=== PATIENT | female | born 1990 | race Caucasian/White ===

== ENCOUNTER → 2017-09-16 11:16 | Outpatient (CLI) | payer MEDICARE, MEDICAID, SELFPAY ==
--- NOTE | 2017-09-16 11:50 | RAD_ITS ---
STUDY: X-RAY - CERVICAL SPINE REASON FOR EXAM: Female, 27 years old. Pain TECHNIQUE: 5 view(s) of the cervical spine were obtained. COMPARISON: None FINDINGS: Normal anterior atlantoaxial articulation. Normal odontoid process. There is straightening of the normal cervical lordosis. Normal vertebral bodies and endplates. Normal disc space heights. Normal visualized intervertebral neuroforamina. The soft tissue structures are unremarkable. RAD/Cerv Spine 4 or 5 Views IMPRESSION: There is mild straightening of the normal cervical lordosis. This can suggest neck strain. Electronically Signed: Talat Hardy MD at 16:45 EDT , Service support ,
[2017-09-16 13:05] LABS: Amphetamine Urine VISTA NEGATIVE (<1000 ng/mL); Barbiturate Urine VISTA NEGATIVE (< 200 ng/mL); Benzodiazepine Urine VISTA NEGATIVE (< 200 ng/mL); Cocaine Urine VISTA NEGATIVE (< 300 ng/mL); Ecstacy Urine VISTA NEGATIVE (< 500 ng/mL); Methadone Urine VISTA NEGATIVE (< 300 ng/mL); PCP Urine VISTA NEGATIVE (< 25 ng/mL); THC Urine VISTA POSITIVE (< 50 ng/mL); Vista UDS pH Range 6
== END ==
PROVIDERS: Family Provider Family Medicine; PCP Family Medicine; Visit Provider Anesthesiology
DX: M54.2 Cervicalgia (principal); F11.20 Opioid dependence, uncomplicated
CPT/HCPCS: 72050; 80307

== ENCOUNTER → 2018-08-15 14:21 | Outpatient (CLI) | payer MEDICARE, MEDICAID, SELFPAY ==
[2018-08-21 11:36] LABS: HPV Reflexed? NOT INDICATED
== END ==
PROVIDERS: Visit Provider Obstetrics & Gynecology
DX: Z12.4 Encounter for screening for malignant neoplasm of cervix (principal)
CPT/HCPCS: 88175; G0145

== ENCOUNTER → 2019-05-20 14:52 | Outpatient (CLI) | payer MEDICARE, MEDICAID, SELFPAY ==
[2016-05-30 09:09] VITALS: BMI 39.0
[2019-05-20 16:44] LABS: Progesterone Level 0.29 ng/mL (See Comment)
[2019-05-20 16:46] LABS: hCG Titer Quant., Serum < 1 mIU/mL (1-3)
== END ==
PROVIDERS: Visit Provider Obstetrics & Gynecology
DX: Z30.013 Encounter for initial prescription of injectable contraceptive (principal)
CPT/HCPCS: 36415; 84144; 84702

== ENCOUNTER 2019-07-16 03:38 | Emergency (ER) | payer MEDICARE, MEDICAID, SELFPAY ==
[2019-07-16 03:38] VITALS: BP 113/77; PULSE 104; RESP 20; TEMP 36.8; O2SAT 98; BMI 33.5
--- NOTE | 2019-07-16 03:50 | ED.VIS.GEN ---
History of Present Illness Chief Complaint: Back Narrative: Patient is a 28-year-old female who presents with chief complaint of sciatic nerve pain. She has a history of prior similar pain in the past although she reports this is more severe. She complains of lower back pain with radiation down her right leg to her toes. She also complains of numbness in the leg. No weakness. She denies any history of back surgeries. No recent trauma or injury. No fever. No abdominal pain. No urinary retention or fecal incontinence. Past Medical History - Allergies and Home Meds Allergies/Adverse Reactions: Allergies codeine Adverse Reaction (Verified 05/30/16 09:09) Upset Stomach hydrocodone bitartrate [From Vicodin] Adverse Reaction (Verified 05/30/16 09:09) Upset Stomach Primary Care Physician: Anthony Humphreys DO [Primary Care Provider] - Past Medical History: - - Depression Smoking Status: Current every day smoker Review of Systems All systems negative except as indicated General: Denies: Fever Cardiovascular: Denies: Chest pain Respiratory: Denies: Dyspnea Gastrointestinal: Denies: Abdominal pain, Nausea, Vomiting Musculoskeletal: Reports: Back pain, Extremity Pain Skin: Denies: Rash Physical Exam Vital Signs/Narrative: Vital Signs Temp Pulse Resp BP Pulse Ox 07/16/19 03:38 98.2 F 104 H 20 H 113/77 98 Inital Vital Signs reviewed: Yes General: Well nourished, Well developed Head: Normocephalic Eyes: EOMI ENT: Moist mucous membranes Neck: Supple Cardiovascular: Regular rate Respiratory: No distress Abdomen: Soft, Nontender, Nondistended Back: - - Right paraspinal lumbar tenderness, no midline tenderness Extremities: No edema, - - Easily palpable dorsalis pedis pulse with brisk capillary refill patient reports decreased sensation to light touch, motor function is normal with normal dorsiflexion, plantarflexion, extensor hallucis longus. Negative for: Tenderness, Edema Skin: Normal color Neurological: Alert, Normal Strength Psychological: Normal affect Diagnostic/Tx/Re-eval - Medical Decision Making Patient is able to ambulate and drove herself in. She does not have evidence of acute surgical pathology such as cauda equina syndrome or epidural abscess. We will treat with a prednisone burst. She was also given a prescription for a short course of [place]. Although she lists hydrocodone as an allergy this was only nausea. We discussed also providing an antiemetic with this. She is agreeable to this plan. She understands to follow-up as an outpatient and to return for new or worsening symptoms and was instructed on specific signs and symptoms to monitor for and she was discharged. ED Disposition - Plan for ED Patient: Disposition: Home or Assisted Living Diagnosis: Lumbar radiculopathy Instructions: BACK PAIN w/ SCIATICA Prescriptions: Oxycodone HCl/Acetaminophen [Percocet 5/325] 1 tab PO Q6H PRN PRN 3 Days #4 tab PRN Reason: Pain Prescription Printed predniSONE tablet 60 mg PO DAILY #15 tab Prescription Printed Referrals: Anthony Humphreys DO [Primary Care Provider] -
[2019-07-16 04:03] VITALS: BP 135/102; PULSE 92; RESP 18; O2SAT 94
== END 2019-07-16 04:11 | disposition home or self-care (01) ==
PROVIDERS: Emergency Provider Emergency Medicine; PCP Family Medicine
DX: M54.16 Radiculopathy, lumbar region (principal); F32.9 Major depressive disorder, single episode, unspecified; F17.200 Nicotine dependence, unspecified, uncomplicated
CPT/HCPCS: 99282

== ENCOUNTER 2019-11-07 21:05 | Emergency (ER) | payer MEDICARE, MEDICAID, SELFPAY ==
[2019-11-07 21:05] VITALS: BP 136/85; PULSE 90; RESP 16; TEMP 36.6; O2SAT 99; BMI 34.2
--- NOTE | 2019-11-07 21:26 | RAD_ITS ---
STUDY: X-RAY - RIGHT WRIST REASON FOR EXAM: Female, 29 years old. FALL TECHNIQUE: 3 view(s) of the wrist were obtained. COMPARISON: None. FINDINGS: Normal visualized distal radius and ulna. Normal radiocarpal articulation. Normal distal radioulnar articulation. Normal carpal bones. Normal carpal articulations. Normal carpometacarpal articulation of the thumb. Normal second through fifth carpometacarpal articulations. Normal visualized metacarpal bones. The soft tissue structures are unremarkable. RAD/Wrist min 3 Views IMPRESSION: Normal x-ray examination of the wrist. Electronically Signed: Reddy Lowe MD at 21:55 EDT , Service support ,
[2019-11-07] MEDS: traMADol 50 MG Tablet PO (21:30)
--- NOTE | 2019-11-07 21:30 | RAD_ITS ---
STUDY: X-RAY - RIGHT HAND REASON FOR EXAM: Female, 29 years old. FALL TECHNIQUE: 3 view(s) of the hand. COMPARISON: None. FINDINGS: Normal radiocarpal articulation. Normal distal radioulnar joint. Normal visualized carpal bones. Normal carpal articulations Normal carpometacarpal articulation of the thumb. Normal second through fifth carpometacarpal joints. Normal metacarpi. Normal metacarpophalangeal joint of the thumb. Normal interphalangeal joint of the thumb. Normal proximal and distal phalanges of the thumb. Normal metacarpophalangeal joints of the second through fifth fingers. Normal proximal and distal interphalangeal joints of the second through fifth fingers. Normal phalanges of the second through fifth fingers. The soft tissue structures are unremarkable. RAD/Hand Min 3 Views IMPRESSION: Normal x-ray examination of the hand. Electronically Signed: Reddy Lowe MD at 21:57 EDT , Service support ,
--- NOTE | 2019-11-07 22:23 | ED.VIS.UPPEX ---
History of Present Illness Chief Complaint: Upper Extremity Injury Narrative: Patient presenting for evaluation secondary to right hand injury. Patient reports that she suffered a mechanical fall on a flat surface where her hand slapped forcibly against the ground. She denies that it was a fall on an outstretched hand where she tried to catch herself. Patient reports a significant amount of pain over her palmar surface at the base of her thumb, and some tingling of her thumb. No numbness or weakness. She does report that she hit her head, but no loss of consciousness, confusion, visual changes numbness or weakness. Review of systems otherwise negative. Pain is moderate worse with palpation and movement. Past Medical History - Allergies and Home Meds Allergies/Adverse Reactions: Allergies codeine Adverse Reaction (Verified 11/07/19 21:06) Upset Stomach hydrocodone bitartrate [From Vicodin] Adverse Reaction (Verified 11/07/19 21:06) Upset Stomach Primary Care Physician: Anthony Humphreys DO [Primary Care Provider] - As Needed Prior records reviewed: Yes Past Medical History: None Smoking Status: Current every day smoker Review of Systems All systems negative except as indicated General: Denies: Chills, Fever, Sweats Cardiovascular: Denies: Chest pain Respiratory: Denies: Dyspnea Gastrointestinal: Denies: Nausea, Vomiting Musculoskeletal: Reports: Myalgias Skin: Denies: Rash Neurological: Denies: Headache Hematologic: Denies: Easy bruising, Easy bleeding Physical Exam Vital Signs/Narrative: Vital Signs Temp Pulse Resp BP Pulse Ox 11/07/19 21:05 97.8 F 90 16 136/85 H 99 Right Hand: - - Examination of the patient's right hand shows some swelling over the thenar eminence with tenderness to palpation in that area. Patient reports some dysesthesia of the thumb, but she does have intact sensation and normal capillary refill. Pain with range of motion of the thumb, but active flexion, extension, abduction and adduction of the thumb is possible. No evidence of laxity of the ulnar collateral ligament. No pain over the anatomical snuffbox General: Well nourished, Well developed Head: Normocephalic, Atraumatic Eyes: EOMI ENT: Moist Mucous Membranes Neck: Full ROM. Negative for: Spinal Tenderness Cardiovascular: Regular rate, Regular rhythm Respiratory: No distress Back: Nontender Skin: Normal color, No rash Neurological: Alert, Oriented x3 Psychological: Normal affect Diagnostic/Tx/Re-eval Clinical Impression(s) from Imaging Studies Wrist X-Ray 11/07/19 21:26 IMPRESSION: Normal x-ray examination of the wrist. Electronically Signed: Reddy Lowe MD at 21:55 EDT , Service support , Hand X-Ray 11/07/19 21:30 IMPRESSION: Normal x-ray examination of the hand. Electronically Signed: Reddy Lowe MD at 21:57 EDT , Service support , - Medical Decision Making Patient presented secondary to a fall with right hand and wrist injury. 3 view of the right hand and the right wrist by my personal review as well as radiology is negative for acute fracture. Patient was given a tramadol in the emergency department. She was given an Robert wrap, and was recommended conservative management measures for a likely hand contusion. She does not have symptomatology that would be consistent with an occult scaphoid fracture. ED Disposition - Plan for ED Patient: Disposition: Home or Assisted Living Diagnosis: Contusion of right hand Instructions: ED HAND CONTUSION Referrals: Anthony Humphreys DO [Primary Care Provider] - As Needed
== END 2019-11-07 22:43 | disposition home or self-care (01) ==
PROVIDERS: Emergency Provider Emergency Medicine; PCP Family Medicine
DX: S60.221A Contusion of right hand, initial encounter (principal); W18.39XA Other fall on same level, initial encounter; Y93.9 Activity, unspecified; Y92.9 Unspecified place or not applicable; F17.200 Nicotine dependence, unspecified, uncomplicated
CPT/HCPCS: 73110; 73130; 99283

== ENCOUNTER → 2019-12-10 08:48 | Outpatient (CLI) | payer MEDICARE, MEDICAID, SELFPAY ==
[2019-12-10 11:28] LABS: Internal QC Validated? YES +Cl - CLEAR BKGD; Pregnancy, Serum, hCG Quali. NEGATIVE Negative
== END ==
PROVIDERS: PCP Family Medicine; Visit Provider Obstetrics & Gynecology
DX: Z30.013 Encounter for initial prescription of injectable contraceptive (principal)
CPT/HCPCS: 36415; 84144; 84703

== ENCOUNTER 2020-05-22 22:06 | Emergency (ER) | payer MEDICARE, MEDICAID, SELFPAY ==
[2020-05-22 22:11] VITALS: BP 136/89; PULSE 93; RESP 14; TEMP 36.3; O2SAT 99; BMI 32.0
--- NOTE | 2020-05-22 22:38 | ED.VISSUMM ---
- ER Visit Summary Date of Service: 05/22/20 Chief Complaint: Requesting test History of Present Illness: The patient is a 29 F presenting requesting a test. States she has been having morning sickness for the past several weeks. She had nausea vomiting x6 today. She denies diarrhea. She has IBS and has chronic abdominal pain. This is no worse than usual. She denies fever. She is G1, P1. She denies other complaints. She states she is on the Depo shot and does not have regular menstrual periods. Physical Examination: Vitals are stable. Patient is afebrile. Alert no acute distress. HEENT exam is unremarkable. Neck is supple. Lungs are clear and equal bilaterally. Heart is regular rate and rhythm. Abdomen is soft nontender nondistended. No guarding or rebound Extremities are unremarkable. Skin is warm and dry. No focal neurologic deficit. Remainder of exam is unremarkable. Emergency Department Course and Treatment: Serum hCG negative. Patient was given Zofran for nausea. She is advised to follow-up with her primary care physician. Advised return to ED for worsening complaints. Disposition: Discharge home Impression: Nausea, vomiting This note was generated with [employer] dictation software. It may contain incorrect words, spelling, and punctuation that were not noted in review of the chart prior to signing ED Disposition - Plan for ED Patient: Instructions: ED Vomiting (Adult) Prescriptions: Ondansetron [Zofran Odt] 4 mg PO Q8H PRN PRN #10 tab PRN Reason: Nausea Prescription Printed Referrals: Anthony Humphreys DO [Primary Care Provider] -
[2020-05-22 22:51] LABS: Internal QC Validated? YES +Cl - CLEAR BKGD; Pregnancy, Serum, hCG Quali. NEGATIVE Negative
--- NOTE | 2020-05-22 23:02 | ED.DEP ---
ED Disposition - Plan for ED Patient: Instructions: ED Vomiting (Adult) Prescriptions: Ondansetron [Zofran Odt] 4 mg PO Q8H PRN PRN #10 tab PRN Reason: Nausea Prescription Printed Referrals: Anthony Humphreys DO [Primary Care Provider] -
== END 2020-05-22 23:17 | disposition home or self-care (01) ==
LOC: ED 22:47
PROVIDERS: Emergency Provider Emergency Medicine; PCP Family Medicine
DX: Z32.02 Encounter for pregnancy test, result negative (principal); R11.2 Nausea with vomiting, unspecified; K58.9 Irritable bowel syndrome, unspecified; G89.29 Other chronic pain; F31.9 Bipolar disorder, unspecified; Z72.0 Tobacco use
CPT/HCPCS: 84703; 99282

== ENCOUNTER → 2020-05-25 11:36 | Outpatient (CLI) | payer MEDICARE, MEDICAID, SELFPAY ==
[2020-05-22 22:11] VITALS: BMI 32.0
--- NOTE | 2020-05-25 11:38 | US_ITS ---
STUDY: ABDOMINAL ULTRASOUND - RIGHT UPPER QUADRANT REASON FOR VISIT: Female, 29 years old NAUSEA VOMITTING -- POSSIBLE IBS TECHNIQUE: Ultrasound evaluation of the right upper quadrant was performed with real-time and static shelby-scale imaging. TECHNICAL QUALITY: Adequate. COMPARISON: None. FINDINGS: Liver: The liver measures 15.4 cm. There is normal echogenicity of the liver. The bile ducts are within normal limits. There is hepatic color flow. The direction of portal flow is hepatopetal. There is no demonstrated mass lesion. Gallbladder: Normal distended gallbladder. The gallbladder wall measures 2.1 mm. There is a negative sonographic Casillas''s sign. There is no pericholecystic fluid. There are no gallstones. Common Bile Duct (C.B.D.): The common bile duct measures 4.8 mm. Pancreas: Normal size of the head, body and tail of the pancreas. There is increased echogenicity of the pancreas. There is no demonstrated pancreatic mass or cyst. Right Kidney: Normal size of the right kidney. The right kidney measures 11 cm x 6.2 cm x 4.5 cm. Normal renal cortex. The right cortex measures 1.6 cm. There is no demonstrated renal mass or cyst. There is no right hydronephrosis. US/Abdomen Limited IMPRESSION: Normal right upper quadrant ultrasound examination. Electronically Signed: Ten Vitale, at 15:19 EST , Service support ,
--- NOTE | 2020-05-25 12:06 | RAD_ITS ---
STUDY: X-RAY - LUMBAR SPINE REASON FOR EXAM: Female, 29 years old. LOWER BACK PAIN. FELL 2 WEEKS AGO. TECHNIQUE: 5 view(s) of the lumbar spine were obtained including oblique views. COMPARISON: None FINDINGS: There is straightening of the normal lumbar lordosis. There is no substantial scoliosis. There is a normal alignment of the vertebrae. There is multilevel endplate spondylosis of the lumbar vertebrae. There is multi-level degenerative disc disease with multi-level disc space narrowing. The soft tissue structures are unremarkable. RAD/L/S Spine Min 4 Views IMPRESSION: Degenerative changes of the spine, as detailed above. Electronically Signed: Ten Vitale, at 15:55 EST , Service support ,
== END ==
PROVIDERS: PCP Family Medicine
DX: R10.11 Right upper quadrant pain (principal); R11.2 Nausea with vomiting, unspecified
CPT/HCPCS: 72110; 76705

== ENCOUNTER → 2020-12-28 10:50 | Outpatient (CLI) | payer MEDICARE, MEDICAID, SELFPAY ==
[2020-12-28 12:40] LABS: HIV - WCH Non-Reactive (Nonreactive); Hepatitis B Surface Antigen Non-Reactive (Nonreactive); Hepatitis C Antibody Non-Reactive (Nonreactive); Syphilis Antibodies Non-reactive
[2020-12-31 08:08] LABS: Chlamydia By Nucleic Acid AMP Negative (Negative)
[2020-12-31 12:33] LABS: Gonococcus By Nucleic Acid AMP Negative (Negative)
== END ==
PROVIDERS: PCP Family Medicine; Visit Provider Obstetrics & Gynecology
DX: Z11.3 Encounter for screening for infections with a predominantly sexual mode of transmission (principal)
CPT/HCPCS: 36415; 86703; 86780; 86803; 87340; 87491; 87591

== ENCOUNTER → 2023-04-14 | Outpatient (CLI) | payer MEDICARE, MEDICAID, SELFPAY ==
--- NOTE | 2023-04-14 08:30 | RAD_ITS ---
STUDY: X-RAY - ESOPHAGUS (BARIUM SWALLOW) WITH FLUOROSCOPY REASON FOR EXAM: Female, 32 years old. DYSPHAGIA TECHNIQUE: 16 view(s) of the esophagus were obtained following swallowing of barium. FLUOROSCOPY TIME (if supplied): (30 seconds) minutes/seconds COMPARISON: None. FINDINGS: There is no demonstrated esophageal foreign body. There is no demonstrated stricture or mucosal abnormality. Normal gastroesophageal junction, without a demonstrated hiatal hernia. The patient ingested a 12 mm tablet of barium without any difficulty. Normal visualized aortic arch and descending thoracic aorta. Normal visualized pulmonary parenchyma. Normal visualized osseous structures of the thorax. RAD/Esophagus Single Contrast IMPRESSION: Normal plain film x-ray examination (barium swallow) of the esophagus. Electronically Signed: Ten Vitale MD at 14:39 EST ,
== END | disposition home or self-care (01) ==
PROVIDERS: Referring Provider Otolaryngology; Visit Provider Otolaryngology
DX: R13.13 Dysphagia, pharyngeal phase (principal); K21.9 Gastro-esophageal reflux disease without esophagitis
CPT/HCPCS: 74220

== ENCOUNTER → 2023-07-27 | Outpatient (CLI) | payer MEDICARE, MEDICAID, SELFPAY ==
--- NOTE | 2023-07-27 15:10 | RAD_ITS ---
STUDY: X-RAY - LUMBAR SPINE REASON FOR EXAM: Female, 32 years old. SCIATICA TECHNIQUE: 5 view(s) of the lumbar spine were obtained. COMPARISON: None FINDINGS: Normal lumbar lordosis. There is a levoscoliosis of the lumbar spine. There is multilevel endplate spondylosis of the lumbar vertebrae. There is multi-level degenerative disc disease with multi-level disc space narrowing. There is facet spurring and sclerosis. There is no demonstrated fracture. The soft tissue structures are unremarkable. RAD/L/S Spine Min 4 Views IMPRESSION: Scoliosis and degenerative change. Electronically Signed: Pako Ny MD at 13:38 EST ,
== END | disposition home or self-care (01) ==
LOC: MTRAD 15:08
PROVIDERS: PCP Family Medicine; Referring Provider Family Medicine; Visit Provider Family Medicine
DX: M54.30 Sciatica, unspecified side (principal)
CPT/HCPCS: 72110

== ENCOUNTER → 2024-04-15 | Outpatient (CLI) | payer MEDICARE, MEDICAID, SELFPAY ==
[2024-04-15 12:20] LABS: Absolute Lymphocyte Count 1.93 X10^3/uL (0.83-4.51); Absolute Neutrophil Count 7.4 X10^3/uL (2.0-7.7); Basophil# 0.03 X10^3/uL; Basophil% 0.3 % (0-1); Eosinophil# 0.01 X10^3/uL; Eosinophils% 0.1 % (0-5); Hematocrit 47.8 % (37-47); Hemoglobin 15.6 g/dL (12.0-15.0); Lymphocyte # 1.93 X10^3/ul (0.83-4.51); Lymphocyte % 19.8 % (19-41); Mean Corp Hgb Conc 32.6 g/dL (32-36); Mean Corpuscular Hgb 32.2 pg (27.0-32.0); Mean Corpuscular Volume 98.6 fL (81-99); Mean Platelet Vol. 9.9 fl (6.2-12.0); Monocyte# 0.35 X10^3/uL; Monocyte% 3.6 % (0-10); NRBC Flagged by Analyzer 0 % (0-5); Neutrophil # 7.37 X10^3/uL (2.7-7.7); Neutrophil % 75.8 % (47-70); Platelet Count 271 K/mm3 (150-450); RBC Distribution Width CV 13.2 % (11.6-14.6); RBC Distribution Width SD 47.6 fl (35.1-43.9); Red Blood Count 4.85 M/mm3 (4.2-5.4); White Blood Count 9.7 K/mm3 (4.4-11.0)
[2024-04-15 12:45] LABS: Vitamin D,25 Hydroxy 49.6 ng/mL
[2024-04-15 13:14] LABS: AST(SGOT) 11 U/L (15-37); Alanine Aminotransfer ALT/SGPT 24 U/L (13-56); Alkaline Phosphatase 59 U/L (45-117); Anion Gap 11 (5-15); BUN 7 mg/dL (7-18); BUN/Creat Ratio 8.8 RATIO (10-20); Calcium,Total 9.4 mg/dL (8.5-10.1); Chloride 112 mmol/L (98-107); Creatinine, Serum 0.79 mg/dL (0.55-1.02); EST Glomerular Filtration Rate 89 mL/min (>60); Est Glom Filt Rate - Afr Amer 107 mL/min (>60); Follicle Stimulating Hormone 4.5 mIU/mL; Globulin 3.9 g/dL (2.2-4.2); Glucose 118 mg/dL (74-106); Luteinizing Hormone 2.4 mIU/mL; Potassium 3.6 mmol/L (3.5-5.1); Protein, Total 7.9 g/dL (6.4-8.2); Sodium Level 141 mmol/L (136-145); Thyroid Stim Hormone (TSH) 0.701 uIU/mL (0.358-3.740)
== END | disposition home or self-care (01) ==
LOC: MFPLAB 09:32
PROVIDERS: PCP Family Medicine; Visit Provider Family Medicine
DX: R53.83 Other fatigue (principal); I11.0 Hypertensive heart disease with heart failure
CPT/HCPCS: 36415; 80053; 82306; 83001; 83002; 84443; 85025

== ENCOUNTER → 2024-08-19 | Outpatient (CLI) | payer MEDICARE, MEDICAID, SELFPAY ==
--- NOTE | 2024-08-19 16:51 | RAD_ITS ---
PROCEDURE: LUMBAR SPINE 2 OR 3 VIEWS 08/19/2024 REASON FOR EXAM: BACK PAIN WITH LUMP TECHNIQUE: 3 view of the lumbar spine COMPARISON: None FINDINGS: Mild levoscoliosis centered at L4. No acute findings. There is degenerative disc disease most notable at L3-L4 and L4-L5. If concern for nerve root impingement, consider MRI. RAD/Lumbar Spine 2 or 3 Views IMPRESSION: Degenerative disc disease of the lower lumbar spine with mild scoliosis. If pe rsistent concern, consider MRI Reading Location: [id number]
== END | disposition home or self-care (01) ==
PROVIDERS: PCP Family Medicine; Referring Provider Family Medicine; Visit Provider Family Medicine
DX: M54.50 Low back pain, unspecified (principal)
CPT/HCPCS: 72100

== ENCOUNTER → 2024-10-03 | Outpatient (CLI) | payer MEDICARE, MEDICAID, SELFPAY | END | disposition home or self-care (01) | LOC: LABSPEC 16:17 | PROVIDERS: PCP Family Medicine; Referring Provider Otolaryngology; Visit Provider Otolaryngology | DX: J02.9 Acute pharyngitis, unspecified (principal) | CPT/HCPCS: 87070 ==

== ENCOUNTER 2024-10-23 12:55 | Emergency (ER) | payer MEDICARE, MEDICAID, SELFPAY ==
[2024-10-23 12:56] VITALS: BP 136/88; PULSE 100; RESP 16; TEMP 36.6; O2SAT 96; BMI 38.5
[2024-10-23 12:58] VITALS: BP 136/88; PULSE 100; RESP 16; TEMP 36.6; O2SAT 96
--- NOTE | 2024-10-23 14:04 | EDS_ITS ---
HPI HPI - Female History of Present Illness Chief Complaint: Female C/O Informant: patient Narrative Narrative: 3 weeks sore throat with mucus. Saw Dr. Villarreal with symptom started throat culture returned haemophilus influenza I was on Augmentin for 10 days still has symptoms. No fevers. Pain with swallowing. In addition burning vaginal region 2 days no discharge no dysuria. Sexually active single partner uses protection. Denies history of STDs. 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 Prior similar symptoms: Yes PFSH PFSH Medical History Bipolar disorder Low back pain Depression Anxiety Home Medications ?Medication ?Instructions ?Recorded ?Last Taken ?Type aripiprazole 30 mg tablet (Abilify) 15 mg PO QHS 05/30 Unknown History sertraline 100 mg tablet 200 mg PO QHS 05/30/16 Unkno wn History gabapentin 600 mg tablet 600 mg PO BID 07/16/19 Unkno wn History prednisone 20 mg tablet 60 mg (3 x 20 mg) PO DAILY # 15 tabs 07/16/19 Unknown Rx trazodone 150 mg tablet 150 mg PO QHS 07/16/19 Unkno wn History lamotrigine 150 mg tablet 150 mg PO BID 05/22/20 Unkno wn History medroxyprogesterone 150 mg/mL 150 mg IM .[id number] 05/05 01/22 Unknown History intramuscular syringe multivitamin with minerals 1 ea PO DAILY 05/22/20 Unkn own History ondansetron 4 mg disintegrating 4 mg PO Q8H PRN PRN Na usea #10 tabs 05/22/20 Unknown Rx tablet quetiapine 25 mg tablet 25 mg PO QHS 05/22/20 Unknow n History prednisone 20 mg tablet 60 mg (3 x 20 mg) PO DAILY # 12 10/23/24 Unknown Rx TABLETS Allergy/AdvReac Type Severity Reaction Status Date / Time codeine AdvReac Upset Verified 05/22/20 22:13 Stomach hydrocodone bitartrate (From AdvReac Upset Verified 05/22/20 22:13 Vicodin) Stomach Social History housing: apartment current occupational status: disabled Smoking Status: Current every day smoker tobacco type: e-cigarettes ROS ROS ED Constitutional Constitutional ED: Denies fever(s) ENT ENT ED: Reports sore throat Cardiovascular Cardiovascular: Denies chest pain Respiratory/Chest Respiratory/Chest: Denies cough Gastrointestinal Gastrointestinal: Denies diarrhea or vomiting Genitourinary Genitourinary ED: Reports other Details: Vaginal burning ; Denies dysuria, hematuria or urinary frequency Musculoskeletal Musculoskeletal: Denies none Integumentary Denies rash or wounds Neurologic Neurologic: Denies weakness EXAM Physical Exam Const Vital Signs: 10/23/24 12:56 10/23/24 12:58 10/23/24 13:54 Temperature 97.9 F 97.9 F Temperature Source Oral Temporal Pulse Rate 100 100 Respiratory Rate 16 16 Respiratory Effort Normal Non-Labored Respiratory Depth Normal Respiratory Pattern Normal Blood Pressure 136/88 H 136/88 H Blood Pressure Mean 104 104 Pulse Ox 96 96 Oxygen Delivery Method Room Air Room Air Room Air 10/23/24 14:55 Temperature Temperature Source Pulse Rate 89 Respiratory Rate 17 Respiratory Effort Respiratory Depth Respiratory Pattern Blood Pressure Blood Pressure Mean Pulse Ox 99 Oxygen Delivery Method Positive well nourished and well developed General Appearance ED: well developed and NAD HEENT Reports moist mucous membranes HEENT Narrative: Minimal posterior pharyngeal erythema 1+ symmetric tonsils bilaterally. Uvula midline. No trismus. No ulcers noted. 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 There are some skin redness or groin area nontender. Speculum examination mild discharge in the vault, cervix bluish coloration. No ulcerations noted. No bleeding noted. Extremity normal to inspection General Extremety ED: Negative for edema or tenderness General Extremity: Negative for edema Neuro oriented x3 and no sensory deficits noted Sensorium / Orientation: awake and alert Skin no rashes or lesions noted and no wounds MDM MDM MDM Narrative Medical decision making narrative: Interventions / MDM: Differential diagnosis: Pharyngitis, vaginitis Diagnosis considered but do not suspect: UTI however urine negative. My EKG interpretation: N/A Imaging independently reviewed and interpreted by myself: N/A External documents reviewed: Records from throat culture from October 03 was positive for haemophilus influenza. Test considered but not ordered:N/A ED course: Continue symptoms erythema sore throat positive haemophilus influenza. Will send for strep and throat culture again. Will do pelvic exam as patient is requesting for testing. Urine sent. Urine make for infection hCG negative. Wet prep negative. Strep negative. She was treated with prednisone. Discussed with patient throat culture pending GC chlamydia pending. At this time we will continue steroids for pharyngitis symptoms. Discussed that positive culture should be contact for treatment. 2207: After discharge review of her testing chlamydia and gonorrhea were negative. Pending throat cultures. Re-evaluation: stable Disposition discussed with patient/family/significant other: Patient Case discussed with consulting clinician: N/A This note was generated with [employer] dictation software. It may contain incorrect words, spelling, and punctuation that were not noted in checking the note before signing. Lab Data Attestation: I reviewed the patient's lab results. Labs: Laboratory Results - last 24 hr 10/23/24 14:15 Urine Color Yellow Urine Clarity Cloudy Urine pH 5.0 Ur Specific [place] 1.020 Urine Protein 30 H Urine Glucose (UA) Normal Urine Ketones Negative Urine Occult Blood Negative Urine Nitrite Negative Urine Bilirubin Negative Urine Urobilinogen Normal Ur Leukocyte Esterase Negative Urine RBC 0-5 SEEN Urine WBC 0-5 SEEN Ur Squamous Epith Cells 0-5 SEEN Uric Acid Crystals 1+ Urine Bacteria 0 SEEN Urine Mucus 2+ Urine Test Negative Discharge Plan Triage Chief Complaint: Female C/O Other Complaint: Shortness of Breath ED Provider: Humphrey Andrew Dx/Rx/DC Orders Clinical Impression: Vaginitis, Sore throat Instructions: Preventing Vaginitis, ED Pharyngitis, Report Pending Prescriptions: New prednisone 20 mg tablet 60 mg PO DAILY Qty: 12 0RF No Action sertraline 100 MG tablet 200 mg PO QHS aripiprazole [Abilify] 30 MG tablet 15 mg PO QHS gabapentin 600 MG tablet 600 mg PO BID trazodone 150 MG tablet 150 mg PO QHS prednisone 20 MG tablet 60 mg PO DAILY Qty: 15 0RF quetiapine 25 MG tablet 25 mg PO QHS Rx Instructions: 1-2 tabs lamotrigine 150 MG tablet 150 mg PO BID multivitamin with minerals 1 EACH tablet 1 ea PO DAILY medroxyprogesterone 150 MG/ML syringe 150 mg IM .[id number] ondansetron 4 MG tablet 4 mg PO Q8H PRN PRN (Reason: Nausea) Qty: 10 0RF Primary Care Provider: Nataliya Oliveira Referrals: Nataliya Oliveira MD [Primary Care Provider] - Ar Villarreal MD [Med Staff - Active Staff] - 1 Week Activity Restrictions/Additional Instructions: Strep negative. Throat culture pending. Wet prep negative GC chlamydia pending. Finish steroids as prescribed. Follow-up with Dr. Villarreal. You will be contacted if any cultures are positive. Print Language: Mauritanian Disposition Disposition: Home, Self Care Discharge Date/Time: 10/23/24 15:43
[2024-10-23 14:31] LABS: Bacteria 0 SEEN /hpf (None Seen)
[2024-10-23] MEDS: predniSONE 20 MG Tablet 60 MG PO (14:41)
[2024-10-23 14:45] LABS: Internal QC Validated? YES +Cl - CLEAR BKGD; Pregnancy, Urine Negative Negative; Record Kit Lot#,Urine Preg 947241
[2024-10-23 14:49] LABS: Color, Urine Yellow (Yellow); Glucose, Dipstick Normal (Normal); Ketone-Dipstick Negative (Negative); Leukocyte Esterase-Dipstick Negative /ul (Negative); Nitrite-Dipstick Negative (Negative); Occult Blood-Urine Negative /ul (Negative); Protein-Dipstick 30 mg/dl (Negative); Urine Bilirubin Dipstick Negative (Negative); Urine Clarity Cloudy (Clear); Urine Urobilinogen Normal (Normal)
[2024-10-23 14:55] VITALS: PULSE 89; RESP 17; O2SAT 99
[2024-10-23 15:09] LABS: Red Blood Cells-Urine 0-5 SEEN /hpf (0-5); Squamous Epithelial Cells - UA 0-5 SEEN /hpf (5-10); White Blood Cells 0-5 SEEN /hpf (0-5)
[2024-10-23 15:10] LABS: Mucous, Urine 2+ /hpf (<or=2+); Uric Acid Crystals Ur 1+ /hpf (<or=1+)
== END 2024-10-23 15:43 | disposition home or self-care (01) ==
PROVIDERS: Emergency Provider Emergency Medicine; PCP Family Medicine; Visit Provider Emergency Medicine
DX: J02.9 Acute pharyngitis, unspecified (principal); B96.3 Hemophilus influenzae [H. influenzae] as the cause of diseases classified elsewhere; N76.0 Acute vaginitis; Z11.3 Encounter for screening for infections with a predominantly sexual mode of transmission; F17.290 Nicotine dependence, other tobacco product, uncomplicated
CPT/HCPCS: 81001; 81025; 87070; 87210; 87491; 87591; 87651; 99283

== ENCOUNTER → 2024-10-24 | Outpatient (CLI) | payer MEDICARE, MEDICAID, SELFPAY ==
[2024-10-24 13:16] LABS: Erythrocyte Sedimentation Rate 11 mm/hr (0-30)
[2024-10-24 13:17] LABS: Absolute Lymphocyte Count 3.24 X10^3/uL (0.83-4.51); Absolute Neutrophil Count 8.3 X10^3/uL (2.0-7.7); Basophil# 0.02 X10^3/uL; Basophil% 0.2 % (0-1); Eosinophil# 0.01 X10^3/uL; Eosinophils% 0.1 % (0-5); Hematocrit 43.7 % (37-47); Hemoglobin 14.5 g/dL (12.0-15.0); Lymphocyte # 3.24 X10^3/ul (0.83-4.51); Lymphocyte % 26.4 % (19-41); Mean Corp Hgb Conc 33.2 g/dL (32-36); Mean Corpuscular Volume 99.5 fL (81-99); Mean Platelet Vol. 9.9 fl (6.2-12.0); Monocyte# 0.63 X10^3/uL; Monocyte% 5.1 % (0-10); NRBC Flagged by Analyzer 0 % (0-5); Neutrophil # 8.33 X10^3/uL (2.7-7.7); Platelet Count 239 K/mm3 (150-450); RBC Distribution Width CV 13.2 % (11.6-14.6); RBC Distribution Width SD 48.8 fl (35.1-43.9); Red Blood Count 4.39 M/mm3 (4.2-5.4); White Blood Count 12.3 K/mm3 (4.4-11.0)
[2024-10-24 13:52] LABS: ALB/GLOB Ratio 1.5 RATIO (0.9-2.4); AST(SGOT) 20 U/L (<=31); Alanine Aminotransfer ALT/SGPT 24 U/L (<=34); Albumin, Serum 4.4 g/dL (3.5-5.0); Alkaline Phosphatase 57 U/L (35-104); Anion Gap 14 (5-15); BUN 9 mg/dL (4-19); BUN/Creat Ratio 11.9 RATIO (10-20); CPK Total, Creatine Kinase 187 U/L (24-195); Carbon Dioxide 17.3 mmol/L (21.0-32.0); Chloride 108 mmol/L (98-108); Creatinine, Serum 0.71 mg/dL (0.70-1.20); EST Glomerular Filtration Rate 114 (>60); Globulin 2.9 g/dL (2.2-4.2); Glucose 116 mg/dL (70-99); Protein, Total 7.3 g/dL (5.9-8.4); Sodium Level 140 mmol/L (133-145); Total Bilirubin 0.28 mg/dL (0.00-1.30); Vitamin B12 627 pg/mL (180-914)
[2024-10-24 14:23] LABS: Amylase 52 U/L (28-100); CRP < 3.00 mg/L (0.0-3.0); Lipase 28 U/L (13-75); Phosphorus 2.8 mg/dL (2.7-4.5)
== END | disposition home or self-care (01) ==
LOC: LAB 11:37
PROVIDERS: PCP Family Medicine; Referring Provider Internal Medicine Gastroenterology; Visit Provider Internal Medicine Gastroenterology
DX: R19.7 Diarrhea, unspecified (principal); R10.9 Unspecified abdominal pain
CPT/HCPCS: 36415; 80053; 80074; 81270; 82150; 82384; 82550; 82607; 82668; 82784; 82785; 82941; 83516; 83690; 83735; 84100; 84165; 85025; 85652; 86003; 86036; 86037; 86140; 86225; 86255; 86316; 86334; 86671

== ENCOUNTER → 2024-11-02 | Outpatient (CLI) | payer MEDICARE, MEDICAID, SELFPAY ==
--- NOTE | 2024-11-02 08:30 | MRI_ITS ---
PROCEDURE: SPINE LUMBAR (ROUTINE) 11/02/2024 REASON FOR EXAM: LUMBAR PAIN TECHNIQUE: Multiplanar and multisequence images were obtained without IV contrast administration. FINDINGS: Normal lumbar vertebral body height and alignment. Normal conus. Normal abdominal aorta. No paravertebral masses. L1-2, L2-3 and L5-S1 unremarkable. At L3-4, left paracentral protrusion produces moderate spinal stenosis without direct nerve root impingement. Disc material comes close to the left L4 nerve root sleeve as it exits the thecal sac. At L4-5, mild canal narrowing from concentric disc bulging with facet arthrosis. MRI/Spine Lumbar (Routine) IMPRESSION: Central protrusion at L3-4 with moderate canal stenosis, eccentric to the left. Mild canal narrowing at L4-5 due to broad-based protrusion/bulge without direct nerve root compression Reading Location[facility]
== END | disposition home or self-care (01) ==
LOC: MRI 07:59
PROVIDERS: PCP Family Medicine; Referring Provider Family Medicine; Visit Provider Family Medicine
DX: M54.50 Low back pain, unspecified (principal)
CPT/HCPCS: 72148

== ENCOUNTER → 2024-11-08 | Outpatient (CLI) | payer MEDICARE, MEDICAID, SELFPAY ==
[2024-11-08 15:02] LABS: Absolute Lymphocyte Count 2.07 X10^3/uL (0.83-4.51); Absolute Neutrophil Count 5.5 X10^3/uL (2.0-7.7); Basophil# 0.02 X10^3/uL; Basophil% 0.2 % (0-1); Eosinophil# 0.04 X10^3/uL; Eosinophils% 0.5 % (0-5); Hematocrit 42.9 % (37-47); Hemoglobin 14.2 g/dL (12.0-15.0); Lymphocyte # 2.07 X10^3/ul (0.83-4.51); Lymphocyte % 25.4 % (19-41); Mean Corp Hgb Conc 33.1 g/dL (32-36); Mean Corpuscular Volume 99.8 fL (81-99); Mean Platelet Vol. 9.8 fl (6.2-12.0); Monocyte# 0.48 X10^3/uL; Monocyte% 5.9 % (0-10); NRBC Flagged by Analyzer 0 % (0-5); Neutrophil # 5.51 X10^3/uL (2.7-7.7); Neutrophil % 67.6 % (47-70); Platelet Count 222 K/mm3 (150-450); RBC Distribution Width SD 47.8 fl (35.1-43.9); White Blood Count 8.2 K/mm3 (4.4-11.0)
[2024-11-08 15:54] LABS: ALB/GLOB Ratio 1.5 RATIO (0.9-2.4); AST(SGOT) 18 U/L (<=31); Alanine Aminotransfer ALT/SGPT 14 U/L (<=34); Albumin, Serum 4.1 g/dL (3.5-5.0); Alkaline Phosphatase 56 U/L (35-104); Anion Gap 13 (5-15); BUN 9 mg/dL (4-19); Calcium,Total 9.7 mg/dL (7.6-11.0); Carbon Dioxide 20.2 mmol/L (21.0-32.0); Chloride 105 mmol/L (98-108); Creatinine, Serum 0.77 mg/dL (0.70-1.20); EST Glomerular Filtration Rate 105 (>60); Globulin 2.8 g/dL (2.2-4.2); Glucose 98 mg/dL (70-99); Potassium 3.6 mmol/L (3.3-5.1); Protein, Total 6.9 g/dL (5.9-8.4); Sodium Level 138 mmol/L (133-145); T4 Total, Thyroxin 7.2 ug/dL (4.8-13.9); Thyroid Stim Hormone (TSH) 0.666 uIU/mL (0.300-4.200); Total Bilirubin 0.33 mg/dL (0.00-1.30); Vitamin B12 633 pg/mL (180-914); Vitamin D,25 Hydroxy 43.4 ng/mL (30-100)
--- OUTSIDE RECORDS SUMMARY | 2024-11-08 18:24 | XMS RPT_ITS | CCD ---
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 Name Role Phone OBED SAMSON Attending Unavailable IMCA Referring Unavailable BURSLEY, CHRISTOPHER Primary Care Unavailable OBED SAMSON Attending Unavailable IMCA Referring Unavailable ISAURA, CHRISTOPHER Primary Care Unavailable OBED SAMSON Attending Unavailable OBED SAMSON Referring Unavailable BURSLEY, CHRISTOPHER Primary Care Unavailable OBED SAMSON Attending Unavailable IMCA Referring Unavailable BURSLEY, CHRISTOPHER Primary Care Unavailable OBED SAMSON Attending Unavailable OBED SAMSON Referring Unavailable BURSLEY, CHRISTOPHER Primary Care Unavailable OBED SAMSON Attending Unavailable OBED SAMSON Referring Unavailable BURSLEY, CHRISTOPHER Primary Care Unavailable RAVIN COLLIER Attending Unavailable BURSLEY, CHRISTOPHER Referring Unavailable BURSLEY, CHRISTOPHER Primary Care Unavailable Lacey Javed Unavailable Unavailable Beba Humphreys Unavailable Unavailable DR BEBA HUMPHREYS DO Primary Care Physician [phone] Mendy Rodriguez PT Unavailable Unavailable Isaura HOLLAND, Son Primary Care Provider PHYSICIAN, NONE Primary Care Physician Unavailab Beba Green DO Primary Care Provider [phone] Naz [facility] Physicians Primary Care Provider Unav ailable SEVERINO BLACKWELL DO Attending Unavailable PHYSICIAN, NONE Primary Care Unavailable HELGA PHELPS MD Attending Unavailable PHYSICIAN, NONE Primary Care Unavailable VINH HOLLAND, DR MONTANA Pelayo Attending Kenya woamck PHYSICIAN, NONE Primary Care Unavailable Beba Humphreys DO Primary Care Provider Patricia MD, Chalon J Primary Care Provider Patricia HOLLAND, Chalon Primary Care Provider Patricia HOLLAND, Nataliya Attending Provider [phone] Patricia HOLLAND, Nataliya Referring Provider Patricia HOLLAND, Kinzaon J Primary Care Provider Cherelle HOLLAND, Dr. Joyner Attending Provider Cherelle HOLLAND, Dr. Joyner Referring Provider Lorrie RODRIGUEZ, Dr. Yin Emergency Provider Katia RODRIGUEZ, Dr. Lopes Attending Provider Katia RODRIGUEZ, Dr. Lopes Referring Provider PATRICIA, CHALON Primary Care Unavailable JENNIFER MASONINDA Referring Unavailable AUNDREA MASONA Attending Unavailable PATRICIA, CHALON Primary Care Unavailable PATRICIA, CHALON Primary Care Unavailable MEGAN MASON Attending Unavailable PATRICIA, CHALON Primary Care Unavailable VALERI KWOK Attending Unavailable PATRICIA, CHALON Primary Care Unavailable VALERI KWOK Attending Unavailable PATRICIA, CHALON Primary Care Unavailable PATRICIA, CHALON Primary Care Unavailable PATRICIA, CHALON Primary Care Unavailable MEGAN MASON Attending Unavailable PATRICIA, CHALON Primary Care Unavailable Patricia, Chalon Primary Care Unavailable Shailesh Schneider Attending Unavailable Patricia, Chalon Referring Unavailable Patricia, Chalon Primary Care Unavailable Humphrey Andrew Attending Unavailable Friend, Moses Attending Unavailable Friend, Moses Referring Unavailable Patricia, Chalon Primary Care Unavailable Friend, Moses Attending Unavailable Friend, Moses Referring Unavailable Patricia, Chalon Primary Care Unavailable Friend, Moses Referring Unavailable Friend, Moses Attending Unavailable Patricia, Chalon Primary Care Unavailable Friend, Moses Referring Unavailable Friend, Moses Attending Unavailable Patircia, Chalon Primary Care Unavailable Patricia, Chalon Primary Care Unavailable Ar Villarreal Attending Unavailable Ar Villarreal Referring Unavailable Friend, Moses Attending Unavailable Patricia, Chalon Referring Unavailable Patricia, Chalon Primary Care Unavailable Shailesh Schneider Attending Unavailable Patricia, Chalon Referring Unavailable Patricia, Chalon Primary Care Unavailable Friend, Moses Attending Unavailable Friend, Moses Referring Unavailable Patricia, Chalon Primary Care Unavailable Patricia, Chalon Primary Care Unavailable Patricia, Chalon Attending Unavailable Patricia, Chalon Primary Care Unavailable Patricia, Chalon Attending Unavailable Patricia, Chalon Referring Unavailable Patricia, Chalon Primary Care Unavailable Patricia, Chalon Attending Unavailable Patricia, Chalon Referring Unavailable Allergies Allergy Classification Reported Allergen(s) Allergy Type Date of Onset Reaction(s) Facility Acetaminophen / HYDROcodone (2 sources) Acetaminophen / HYDROcodone Drug Allergy 7 Nausea And Vomiting [facility] NSAIDs (2 sources) Ibuprofen Drug Allergy 9 [facility] Opioid Agonists (2 sources) Codeine Drug Allergy 7 Nausea And Vomiting [facility] (20 sources) Acetaminophen / HYDROcodone; Translations: [HYDROCODONE-ACET AMINOPHEN] Drug Allergy 7 Nausea And Vomiting [facility] Repository (20 sources) Codeine; Translations: [CODEINE] Drug Allergy 7 Nausea And Vomiting [facility] Repository (10 sources) Acetaminophen / HYDROcodone; Translations: [acetaminophen-hy drocodone] Drug Allergy [facility] (20 sources) Ibuprofen Drug Allergy 9 [facility] (6 sources) HYDROcodone; Translations: [hydrocodone bitartrate] Drug Allergy 0 Upset Stomach [facility] Medications Current Medications Medication Drug Class(es) Dates Sig (Normalized) Sig (Original) [id number] 200 actuat albuterol 0.09 mg/actuat metered dose inhaler (20 sources) beta2-Adrenergic Agonist Start: 06-21-2021 take 2 puff(s) by inhalation four times daily as needed for wheezing ProAir HFA MDI (90 mcg/inh) inhalation aerosol 2 puff(s), Inhalation, QID, PRN as needed for wheezing, # 1 EA, 1 Refill(s), Pharmacy: [id number], 167.6, cm, 06/21/21 10:12:00 EST, Height, kg, 06/21/21 10:12:00 EST, Dosing Weight Start Date: 06/21/21 Status: Ordered Start: 06-21-2021 take 2 puff(s) by in halation four times daily as needed for wheezing ProAir HFA MDI (90 mcg/inh) inhalation aerosol 2 puff(s), Inhalation, QID, PRN as needed for wheezing, # 1 EA, 1 Refill(s), Pharmacy: [id number] [facility], 167.6, cm, 06/21/21 10:12:00 EST, Height, kg, 06/21/21 10:12:00 EST, Dosing Weight Start Date: 06/21/21 Status: Ordered Start: 12-03-2020 take 2 puff(s) by in halation four times daily as needed for wheezing ProAir HFA MDI (90 mcg/inh) inhalation aerosol 2 puff(s), Inhalation, QID, PRN as needed for wheezing, # 1 EA, 1 Refill(s), Pharmacy: [id number], 167.6, cm, 12/03/20 14:18:00 EDT, Height, kg, 12/03/20 14:28:00 EDT, Dosing Weight Start Date: 12/03/20 Status: Ordered Start: 07-09-2018 take 2 puff(s) by mo uth every four hours for wheezing albuterol 108 (90 Base) MCG/ACT inhaler inhale 2 puffs by mouth every 4 hours if needed for wheezing or shortness of breath 07/09/2018 Active albuterol MDI (90 mcg/inh) CFC free inhalation aerosol (16 sources) Start: 04-11-2023 take 2 puff(s) by inhalation every four hours albuterol MDI (90 mcg/inh) CFC free inhalation aerosol 2 puff(s), Inhalation, q4h, # 8.5 gram(s), 0 Refill(s) Start Date: 04/11/23 Status: Ordered Start: 04-14-2022 take 2 puff(s) by in halation every four hours albuterol MDI (90 mcg/inh) CFC free inhalation aerosol 2 puff(s), Inhalation, q4h, # 1 EA, 0 Refill(s), Cough Wheeze Start Date: 04/14/22 Status: Ordered Start: 01-12-2022 take 1 dose by inhal ation four times daily albuterol MDI (90 mcg/inh) CFC free inhalation aerosol Dose : 180 mcg = 2 puff(s), Inhalation, QID, # 18 gram(s), 0 Refill(s), Acute infection of sinus Start Date: 01/12/22 Status: Ordered Start: 12-30-2021 take 2 puff(s) by in halation every six hours as needed for wheezing albuterol MDI (90 mcg/inh) CFC free inhalation aerosol 2 puff(s), Inhalation, q6h, PRN as needed for wheezing, # 8.5 gram(s), 0 Refill(s), Nausea Start Date: 12/30/21 Status: Ordered amoxicillin 875 mg oral tablet (1 source) Penicillin-class Antibacterial Start: 01-12-2022 End: 01-26-2022 amoxicillin 875 mg oral tablet Dose : 875 mg = 1 tab(s), Oral, BID, X 14 day(s), # 28 tab(s), 0 Refill(s), 01/26/22 21:41:00 EDT, Acute infection of sinus Start Date: 01/12/22 Stop Date: 01/26/22 Status: Ordered amphetamine aspartate 7.5 mg / amphetamine sulfate 7.5 mg / dextroamphetamine saccharate 7.5 mg / dextroamphetamine sulfate 7.5 mg oral tablet (20 sources) Central Nervous System Stimulant Start: 10-24-2024 take 1 tablet by mouth once daily Dextroamphetamin e-Amphetamine (Adderall) 30 mg tablet Active 30 mg PO daily October 24, 2024 12:00am Start: 11-30-2021 amphetamine-de xtroamphetamine (Adderall) 20 MG tablet 11/30/2021 Active Start: 04-07-2013 End: 07-01-2013 take 1 tablet by mouth once daily Dextroamphetamine-Amphetamine (Adderall 10 Mg Tablet) 10 MG tablet Discontinued 10 mg PO DAILY April 07, 2013 12:00am July 01, 2013 7:26pm ARIPiprazole 10 mg oral tablet (13 sources) Atypical Antipsychotic Start: 11-11-2020 ARIPipr azole 10 mg oral tablet Dose : 10 mg = 1 tab(s), Oral, qDay, 0 Refill(s) Start Date: 11/11/20 Status: Ordered Start: 08-15-2019 ARIPiprazole 1 5 MG Oral Tablet Quantity: 30 Refills: 0 Start : 15-Aug-2019 Active Start: 05-30-2016 End: 10-24-2024 Aripiprazole (Abilify) 30 MG tablet Discontinued 15 mg PO AT BEDTIME May 30, 2016 1:00am October 24, 2024 11:07am Start: 04-07-2013 End: 07-01-2013 take 1 tablet by mouth once daily Aripiprazole (Abilify) 30 MG tablet Discontinued 30 mg PO DAILY April 07, 2013 12:00am July 01, 2013 7:26pm B-Plex (Vitamin B Complex) oral tablet (8 sources) Start: 11-11-2020 take 1 tablet by mouth once daily B-Plex (Vitamin B Complex) oral tablet Dose = 1 tab(s), Oral, Daily, okay to change to brand covered by insurance., # 30 tab(s), 0 Refill(s), Pharmacy: [facility] [id number] [facility], 167.6, cm, 11/11/20 15:37:00 EDT, Height, kg, 11/11/20 15:37:00 EDT, Dosing Weight Start Date: 11/11/20 Status: Ordered benzonatate 100 mg oral capsule (1 source) Non-narcotic Antitussive Start: 04-11-2023 End: 04-21-2023 Tessalon Perles 100 mg oral capsule Dose : 100 mg = 1 cap(s), Oral, q8h, X 10 day(s), # 30 cap(s), 0 Refill(s), 04/21/23 1:37:00 PM EST Start Date: 04/11/23 Stop Date: 04/21/23 Status: Ordered Biotin (1 source) Start: 10-24-2024 Biotin 2,500 m cg tablet,chewable Active ug PO DAILY October 24, 2024 12:00am Biotin w/ Vitamins C & E (HAIR SKIN & NAILS GUMMIES PO) (20 sources) Biotin w/ Vitami ns C & E (HAIR SKIN & NAILS GUMMIES PO) Take by mouth. Active Biotin w/ Vitami ns C & E (HAIR SKIN & NAILS GUMMIES PO) Take by mouth. 0 Active cephalexin 500 mg oral capsule (2 sources) Cephalosporin Antibacterial Start: 02-18-2023 End: 02-23-2023 cephalexin 500 mg oral capsule Dose : 500 mg = 1 cap(s), Oral, q12h, X 5 day(s), # 10 cap(s), 0 Refill(s), 02/23/23 12:39:00 PM EDT, 98.2 Start Date: 02/18/23 Stop Date: 02/23/23 Status: Ordered Start: 04-14-2022 End: 04-21-2022 cephalexin 500 mg oral capsu le Dose : 500 mg = 1 cap(s), Oral, q12h, X 7 day(s), # 14 cap(s), 0 Refill(s), 04/21/22 10:57:00 EST, Cough Wheeze, 98.2 Start Date: 04/14/22 Stop Date: 04/21/22 Status: Ordered cholecalciferol 0.05 mg oral tablet (20 sources) Vitamin D Start: 09-19-2022 take 1 tablet by mouth once daily cholecalciferol (Vitamin D-3) 50 MCG (2000 UT) tablet Take 50 mcg by mouth daily. 09/19/2022 Active DME MISCellaneous (7 sources) Start: 03-31-2021 DME MISCellane ous TENS UNIT, SA ACSE TENS UNIT E0730 REDUCING CHRONIC INTRACTABLE PAIN, 4 LEAD FOR MULTIPLE SITES; tens unit EO730, reducing chronic intractable pain, 4 lead for multiple pain sites. Certificate of medical necessity, the above identified equipment is deemed medically necessary for an estimated period of time - one month rental with option to purchase. Treatment instructions, tens unit: rate 80 width 80 alternating C for 2 hours, M for 1 hour. Wearing time: 8-10 hour TENS supplies as needed., # 1 EA, 0 Refill(s), Chronic neck pain, 87 Start Date: 03/31/21 Status: Ordered Start: 03-31-2021 DME MISCellane ous TENS UNIT, SA CASE TENS UNIT E0730 REDUCING CHRONIC INTRACTABLE PAIN, 4 LEAD FOR MULTIPLE SITES; tens unit EO730, reducing chronic intractable pain, 4 lead for multiple pain sites. Certificate of medical necessity, the above identified equipment is d... Start Date: 03/31/21 Status: Ordered drospirenone 3 mg / ethinyl estradiol 0.03 mg oral tablet (1 source) Progestin, Estrogen Start: 10-21-2024 drospirenone-ethinyl estradiol (Morena 28) 3-0.03 MG tablet 1 tablet daily, skip placebos and start new pack 56 tablet 6 10/21/2024 Active famotidine 40 mg oral tablet (8 sources) Histamine-2 Receptor Antagonist Start: 03-22-2021 famotidine 40 mg ora l tablet Dose : 40 mg = 1 tab(s), Oral, qHS, for reflux, # 30 tab(s), 11 Refill(s), Pharmacy: [place] [id number] [facility], 169.5, cm, 03/22/21 10:28:00 EDT, Height, kg, 12/03/20 14:28:00 EDT, Dosing Weight Start Date: 03/22/21 Status: Ordered gabapentin 600 mg oral tablet (18 sources) Anti-epileptic Agent Start: 10-24-2024 Gabapentin 600 mg ta blet Active 800 mg PO THREE TIMES A DAY October 24, 2024 11:06am Start: 02-22-2020 Gabapentin 300 MG Oral Capsule Quantity: 90 Refills: 0 Start : 22-Feb-2020 Active Start: 07-16-2019 End: 10-24-2024 take 1 tablet by mouth twice daily Gabapentin 600 MG tablet Discontinued 600 mg PO TWICE A DAY July 16, 2019 1:00am October 24, 2024 11:15am hydrOXYzine pamoate 50 mg oral capsule (20 sources) Antihistamine Start: 08-01-2022 take 1 capsule by mouth three times daily for anxiety hydrOXYzine pamoate (Vistaril) 50 MG capsule take 1 capsule by mouth three times a day if needed for anxiety or sleep 08/01/2022 Active Start: 11-11-2020 hydrOXYzine pa moate 25 mg oral capsule 0 Refill(s) Start Date: 11/11/20 Status: Ordered Start: 04-07-2013 End: 07-01-2013 take 1 capsule by mouth at bedtime Hydroxyzine Pamoate 25 MG capsule Discontinued 25 mg PO AT BEDTIME April 07, 2013 12:00am July 01, 2013 7:26pm hyoscyamine sulfate 0.125 mg oral tablet (20 sources) Start: 06-12-2023 hyoscyamine (Anaspaz,Levsin) 0.125 MG tablet 06/12/2023 Active ibuprofen 800 mg oral tablet (8 sources) Nonsteroidal Anti-inflammatory Drug Start: 06-21-2021 ibuprofen 800 mg ora l tablet Dose : 800 mg = 1 tab(s), Oral, q12h, PRN as needed for pain, # 60 tab(s), 2 Refill(s), [facility]: [facility] [facility], DDD (degenerative disc disease), lumbar, 167.6, cm, 06/21/21 10:12:00 EST, Height, kg, 06/21/21 10:12:00 EST, Dosing Weight Start Date: 06/21/21 Status: Ordered Start: 03-22-2021 ibuprofen 800 mg oral tablet Dose : 800 mg = 1 tab(s), Oral, q12h, PRN as needed for pain, # 60 tab(s), 2 Refill(s), [facility], DDD (degenerative disc disease), lumbar, 169.5, cm, 03/22/21 10:28:00 EDT, Height, kg, 12/03/20 14:28:00 EDT, Dosing Weight Start Date: 03/22/21 Status: Ordered ketoconazole 20 mg/ml topical cream (1 source) Azole Antifungal Start: 12-18-2022 End: 01-15-2023 ketoconazole 2% topical cream Apply 1 asher, Topical, BID, X 14 day(s), # 30 gram(s), 1 Refill(s), Cream, 98.2 Start Date: 12/18/22 Stop Date: 01/15/23 Status: Ordered lamoTRIgine 150 mg oral tablet (20 sources) Mood Stabilizer, Anti-epileptic Agent Start: 10-24-2024 Lamotrigine 150 mg tablet Active 200 mg PO TWICE A DAY October 24, 2024 11:08am Start: 06-12-2023 lamoTRIgine (L aMICtal) 200 MG tablet 06/12/2023 Active Start: 10-08-2020 End: 12-15-2022 take 1 tablet by mouth twice daily lamoTRIgine (LaMICtal) 200 MG tablet Take 1 tablet by mouth 2 times daily. 0 09/15/2022 12/15/2022 Discontinued Start: 10-03-2019 End: 10-24-2024 take 1 tablet by mouth twice daily Lamotrigine 150 MG tablet Discontinued 150 mg PO TWICE A DAY May 22, 2020 1:00am October 24, 2024 11:15am take 4 tablets by mo [facility] in the morning lamoTRIgine (LaMICtal) 25 MG tablet Take 100 mg by mouth in the morning. Active mirtazapine 15 mg oral tablet (1 source) Start: 12-03-2020 mirtazapine 15 mg oral tablet Dose : 15 mg = 1 tab(s), Oral, qHS, 0 Refill(s) Start Date: 12/03/20 Status: Ordered Mucinex D Max Strength 120 mg-1200 mg oral tablet, extended release (1 source) Start: 01-12-2022 End: 01-22-2022 take 1 tablet by mouth every twelve hours Mucinex D Max Strength 120 mg-1200 mg oral tablet, extended release Dose = 1 tab(s), Oral, q12h, X 10 day(s), # 20 tab(s), 0 Refill(s), Acute infection of sinus Start Date: 01/12/22 Stop Date: 01/22/22 Status: Ordered Multiple Vitamins-Minerals (ONE-A-DAY WOMENS PO) (20 sources) Multiple Vitamins-Minerals (ONE-A-DAY WOMENS PO) Take by mouth. Active Multiple Vitamin s-Minerals (ONE-A-DAY WOMENS PO) Take by mouth. 0 Active Multivitamin preparation (8 sources) Start: 12-24-2018 take 1 tablet by mouth once daily Multivitamin Dose = 1 tab(s), Oral, Daily, 0 Refill(s) Start Date: 12/24/18 Status: Ordered Multivitamin With Minerals (2 sources) Start: 05-22-2020 Multivitamin W ith Minerals Active 1 EACH PO DAILY May 22, 2020 12:00am Multivitamin With Minerals 1 EACH tablet (3 sources) Start: 05-22-2020 take 1 tablet by mouth once daily Multivitamin With Minerals 1 EACH tablet Active 1 NMA PO DAILY May 22, 2020 1:00am Olanzapine-Samidorphan (1 source) Start: 10-24-2024 Olanzapine-Ozzie idorphan (Lybalvi) 5-10 mg tablet Active 1 {tbl} PO daily October 24, 2024 12:00am OLANZapine-Samidorphan 5-10 MG tablet (20 sources) OLANZapine-Samid orphan 5-10 MG tablet Take by mouth. Active OLANZapine-Samid orphan 5-10 MG tablet Take by mouth. 0 Active omeprazole 40 mg delayed release oral capsule (20 sources) Proton Pump Inhibitor Start: 10-24-2024 take 1 capsule by mouth once daily Omeprazole 40 mg capsule,delayed release(DR/EC) Active 40 mg PO daily October 24, 2024 12:00am Start: 04-07-2022 take 1 capsule by [facility] in the morning omeprazole (PriLOSEC) [address] capsule Take 40 mg by mouth in the morning. 04/07/2022 Active potassium chloride 10 meq extended release oral capsule (1 source) Start: 10-24-2024 take 1 capsule by mouth once daily Potassium Chloride 10 mEq capsule, extended release Active 10 meq PO daily October 24, 2024 12:00am predniSONE 20 mg oral tablet (15 sources) Start: 10-06-2022 End: 11-11-2022 take 5 tablets by mouth once daily in the morning, then take 4 tablets by mouth once daily in the morning, then take 3 tablets by mouth once daily in the morning, then take 2 tablets by mouth once daily in the morning, then take 1 tablet by mouth once daily in the morning predniSONE (Deltasone) 20 MG tablet Indications: Intractable chronic migraine without aura and without status migrainosus , Medication overuse headache Take 5 tabs po AM the first day, take 4 tabs po AM the second day, take 3 tabs po AM the third day, take 2 tabs po AM the fourth day, and take 1 tab po AM the fifth day 15 tablet 0 10/06/2022 11/11/2022 Discontinued (Therapy completed) Start: 04-14-2022 End: 04-18-2022 predniSONE 20 mg oral tablet Dose : 60 mg = 3 tab(s), Oral, qDay, X 4 day(s), # 12 tab(s), 0 Refill(s), 04/18/22 10:57:00 EST, Cough Wheeze Start Date: 04/14/22 Stop Date: 04/18/22 Status: Ordered Start: 01-12-2022 End: 01-17-2022 predniSONE 10 mg oral tablet Dose : 40 mg = 4 tab(s), Oral, qDay, # 20 tab(s), 0 Refill(s), Acute infection of sinus Start Date: 01/12/22 Stop Date: 01/17/22 Status: Ordered Start: 07-16-2019 End: 10-24-2024 take 3 tablets by mouth once daily Prednisone 20 mg tablet Active 60 mg PO DAILY October 23, 2024 12:00am Start: 07-16-2019 take 60 mg by mouth once daily Prednisone Active 60 MG PO DAILY July 16, 2019 12:00am promethazine hydrochloride 12.5 mg oral tablet (1 source) Phenothiazine Start: 10-24-2024 take 1 tablet by mouth every six hours as needed Promethazine 12.5 mg tablet Active 12.5 mg PO EVERY 6 HOURS as needed October 24, 2024 12:00am rifAXIMin 550 mg oral tablet (20 sources) Rifamycin Antibacterial Start: 10-24-2024 take 1 tablet by mouth three times daily Rifaximin (Xifaxan) 550 mg tablet Active 550 mg PO THREE TIMES A DAY October 24, 2024 12:00am Start: 06-19-2023 Xifaxan 550 MG tablet 06/19/2023 Active rimegepant 75 mg disintegrating oral tablet (20 sources) Start: 06-13-2023 End: 07-01-2024 Rimegepant Sulfate (Nurtec) 75 MG tablet dispersible Take one tablet by mouth as needed for migraine, max once every 48 hours (8 tablets to last 30 days) 8 tablet 3 07/01/2024 Active tiZANidine 4 mg oral capsule (9 sources) Central alpha-2 Adrenergic Agonist Start: 10-24-2024 Tizanidine (Zanaflex ) 4 mg capsule Active 20 mg PO AT BEDTIME October 24, 2024 12:00am Start: 03-22-2021 tiZANidine 4 m g oral tablet Dose : 4 mg = 1 tab(s), Oral, q8h, # 90 tab(s), 2 Refill(s), Pharmacy: [facility] [address], 169.5, cm, 03/22/21 10:28:00 EDT, Height, kg, 12/03/20 14:28:00 EDT, Dosing Weight Start Date: 03/22/21 Status: Ordered ubrogepant 100 mg oral tablet (15 sources) Start: 07-04-2024 Ubrogepant (Ubrelvy) 100 MG tablet Take 100 mg by mouth as needed (migraine). 30 tablet 3 07/05/2024 9:23 AM EST 07/04/2024 Active Vitamin D (1 source) Start: 10-24-2024 vitamin D Acti ve PO October 24, 2024 12:00am zolpidem tartrate 10 mg oral tablet (20 sources) gamma-Aminobuty chriss Acid-ergic Agonist Start: 10-24-2024 take 1 tablet by mouth at bedtime Zolpidem (Ambien) 10 mg tablet Active 10 mg PO AT BEDTIME October 24, 2024 12:00am Start: 11-11-2020 take 1 tablet by suman th once daily zolpidem (Ambien) 10 MG tablet Take 10 mg by mouth Nightly. 03/24/2022 Active Start: 04-07-2013 End: 07-01-2013 take 1 tablet by mouth at bedtime as needed Zolpidem (Ambien) 10 MG tablet Discontinued 10 mg PO AT BEDTIME NEEDED as needed for Insomnia April 07, 2013 12:00am July 01, 2013 7:26pm Completed/Discontinued Medications Medication Drug Class(es) Dates Sig (Normalized) Sig (Original) acetaminophen 500 mg oral tablet (1 source) Start: 10-12-2021 End: 10-12-2021 acetaminophen (TYLENOL) tablet 1,000 mg acetaminophen 325 mg / oxyCODONE hydrochloride 5 mg oral tablet (5 sources) Opioid Agonist Start: 07-16-2019 End: 07-19-2019 Oxycodone-Acetaminop hen 1 TABLET tablet Discontinued 1 {tbl} PO EVERY 6 HOURS NEEDED as needed for Pain 4 3 July 16, 2019 July 18, 2019 1:00am July 19, 2019 1:09am Start: 07-16-2019 End: 07-19-2019 take 1 tablet by mouth every six hours as needed Oxycodone-Acetaminophen Discontinued 1 TABLET PO EVERY 6 HOURS NEEDED 4 3 July 16, 2019 July 19, 2019 12:09am onabotulinumtoxina 200 unt injection (20 sources) Acetylcholine Release Inhibitor Start: 08-15-2024 End: 08-15-2024 onabotulinumtoxinA (Botox) injection 200 Units Start: 08-15-2024 End: 08-15-2024 inject 200 [IU] by intramuscular injection once 200 Units, IntraMUSCular, Once, On Kay 08/15/24 at 1415, For 1 dose Start: 05-23-2024 End: 05-23-2024 onabotulinumtoxinA (Botox) i njection 200 Units Start: 05-23-2024 End: 05-23-2024 inject 200 [IU] by intramuscular injection once 200 Units, IntraMUSCular, Once, On Kay 05/23/24 at 1445, For 1 dose Start: 02-28-2024 End: 02-28-2024 onabotulinumtoxinA (Botox) i njection 200 Units Start: 02-28-2024 End: 02-28-2024 inject 200 [IU] by intramuscular injection once 200 Units, IntraMUSCular, Once, On Mon02/28/24 at 1530, For 1 dose Start: 02-28-2024 End: 02-28-2024 onabotulinumtoxinA (Botox) i njection 200 Units Start: 02-28-2024 End: 02-28-2024 inject 200 [IU] by intramuscular injection once 200 Units, IntraMUSCular, Once, On Mon02/28/24 at 1530, For 1 dose Start: 02-28-2024 End: 02-28-2024 onabotulinumtoxinA (Botox) i njection 200 Units Start: 02-28-2024 End: 02-28-2024 inject 200 [IU] by intramuscular injection once 200 Units, IntraMUSCular, Once, On Mon02/28/24 at 1530, For 1 dose Start: 02-28-2024 End: 02-28-2024 onabotulinumtoxinA (Botox) i njection 200 Units Start: 02-28-2024 End: 02-28-2024 inject 200 [IU] by intramuscular injection once 200 Units, IntraMUSCular, Once, On Mon02/28/24 at 1530, For 1 dose Start: 02-28-2024 End: 02-28-2024 onabotulinumtoxinA (Botox) i njection 200 Units Start: 02-28-2024 End: 02-28-2024 inject 200 [IU] by intramuscular injection once 200 Units, IntraMUSCular, Once, On Mon02/28/24 at 1530, For 1 dose Start: 02-28-2024 End: 02-28-2024 onabotulinumtoxinA (Botox) i njection 200 Units Start: 02-28-2024 End: 02-28-2024 inject 200 [IU] by intramuscular injection once 200 Units, IntraMUSCular, Once, On Mon02/28/24 at 1530, For 1 dose Start: 02-28-2024 End: 02-28-2024 onabotulinumtoxinA (Botox) i njection 200 Units Start: 02-28-2024 End: 02-28-2024 inject 200 [IU] by intramuscular injection once 200 Units, IntraMUSCular, Once, On Mon02/28/24 at 1530, For 1 dose Start: 10-31-2023 End: 10-31-2023 onabotulinumtoxinA (Botox) i njection 200 Units Start: 10-31-2023 End: 10-31-2023 onabotulinumtoxinA (Botox) i njection 200 Units Start: 06-21-2023 End: 06-21-2023 onabotulinumtoxinA (Botox) i njection 200 Units Start: 05-15-2023 End: 04-15-2024 onabotulinumtoxinA (Botox) 2 00 units injection Inject 200 units as directed every 12 weeks for migraine prevention 1 each 2 08/02/2024 2:51 PM EST 04/15/2024 Active calcium carbonate 1500 mg oral tablet (5 sources) Start: 04-07-2013 End: 07-01-2013 take 1 tablet by mouth once daily Calcium Carbonate (Caltrate-600) 600 MG tablet Discontinued 600 mg PO DAILY April 07, 2013 12:00am July 01, 2013 7:26pm cyclobenzaprine hydrochloride 10 mg oral tablet (2 sources) Muscle Relaxant Start: 09-05-2019 Cyclobenzaprine HCl - 10 MG Oral Tablet Quantity: 90 Refills: 0 Start : 05-Sep-2019 Active Depo-Provera Contraceptive 150 mg/mL intramuscular suspension (7 sources) Start: 03-30-2021 inject 1 mL by intramuscular injection every three months Depo-Provera Contraceptive 150 mg/mL intramuscular suspension Dose : 150 mg = 1 mL, Intramuscular, q3mo, # 1 mL, 0 Refill(s) Start Date: 03/30/21 Status: Ordered dicyclomine hydrochloride 20 mg oral tablet (4 sources) Anticholinergic Start: 05-14-2020 take 1 tablet by mouth 30 minutes before mealtime as needed for muscle spasms Dicyclomine HCl - 20 MG Oral Tablet 1 TAB 30 MINUTES BEFORE MEALS NEEDED FOR BOWEL SPASM Quantity: 90 Refills: 2 Lacey Javed PA-C Start : 14-May-2020 Active Start: 05-11-2020 Dicyclomine HC l - 10 MG Oral Capsule Quantity: 40 Refills: 0 Start : 11-May-2020 Active drospirenone 4 mg oral tablet (5 sources) Progestin Start: 10-16-2024 End: 10-21-2024 take 1 tablet by mouth once daily Drospirenone (Slynd) 4 MG tablet Take 4 mg by mouth daily. 28 tablet 3 10/16/2024 10/21/2024 Discontinued 1 ml erenumab-aooe 140 mg/ml auto-injector (3 sources) Start: 12-19-2022 End: 05-11-2023 inject 1 mL by subcutaneous injection once erenumab (Aimovig) 140 MG/ML injection Inject 1 mL (140 mg) under the skin every 28 (twenty-eight) days. 1 mL 11 12/19/2022 05/11/2023 Discontinued fluticasone propionate 0.05 mg/actuat metered dose nasal spray (5 sources) Corticosteroid Start: 01-12-2022 End: 01-19-2022 take 1 dose nasal route twice daily Flonase 50 mcg/inh nasal spray Dose = 1 spray(s), Nostril, each, BID, # 16 gram(s), 0 Refill(s), Acute infection of sinus Start Date: 01/12/22 Stop Date: 01/19/22 Status: Ordered gadobutrol (Gadavist) injection 11 mL (2 sources) Start: 05-23-2023 End: 05-23-2023 gadobutrol (Gadavist) injection 11 mL 1 ml medroxyPROGESTERone acetate 150 mg/ml prefilled syringe (20 sources) Progestin Start: 09-20-2024 End: 10-21-2024 medroxyPROGESTERone (Depo-Provera) 150 MG/ML suspension prefilled syringe injection syringe Indications: Encounter for surveillance of contraceptive pills Inject 1 mL (150 mg) into the shoulder, thigh, or buttocks every 90 days 1 mL 09/20/2024 10/21/2024 Discontinued Start: 07-09-2024 medroxyPROGEST ERone (Depo-Provera) 150 MG/ML suspension prefilled syringe injection syringe Indications: Encounter for surveillance of contraceptive pills Inject 1 mL (150 mg) into the shoulder, thigh, or buttocks every 90 days 1 mL 08/19/2024 4:12 PM EDT 07/09/2024 Active Start: 12-21-2023 End: 10-21-2024 medroxyPROGESTERone (Depo-Pr overa) 150 MG/ML suspension prefilled syringe injection syringe Inject 1 mL (150 mg) into the shoulder, thigh, or buttocks Once for 1 dose. 1 mL 12/21/2023 10/21/2024 Discontinued Start: 11-20-2023 End: 07-06-2024 medroxyPROGESTERone (Depo-Pr overa) 150 MG/ML suspension prefilled syringe injection syringe Indications: Encounter for surveillance of contraceptive pills Inject 1 mL (150 mg) into the shoulder, thigh, or buttocks every 90 days 1 mL 04/22/2024 4:16 PM EST 04/05/2024 07/06/2024 Discontinued (Reorder) Start: 09-12-2023 End: 11-19-2023 medroxyPROGESTERone (Depo-Pr overa) 150 MG/ML injection Indications: Encounter for surveillance of contraceptive pills Inject 1 mL (150 mg) into the shoulder, thigh, or buttocks every 90 minutes as needed (prn). 1 mL 0 11/20/2023 Active Start: 06-27-2023 End: 06-27-2023 medroxyPROGESTERone (Depo-Pr overa) injection 150 mg Start: 10-06-2022 End: 10-06-2022 medroxyPROGESTERone (Depo-Pr overa) injection 150 mg Start: 09-29-2021 medroxyPROGEST ERone (DEPO-PROVERA) injection 150 mg Start: 10-08-2020 Depo-Provera m g =, Intramuscular, 0 Refill(s) Start Date: 10/08/20 Status: Ordered Start: 05-22-2020 End: 10-24-2024 inject 150 mg by intramuscular injection every three months Medroxyprogesterone 150 MG/ML syringe Discontinued 150 mg IM .[id number] May 22, 2020 1:00am October 24, 2024 11:08am Start: 05-22-2020 inject 150 mg by int ramuscular injection every three months Medroxyprogesterone Active 150 MG IM .[id number] May 22, 2020 12:00am medroxyPROGESTER one (Depo-Provera) 150 MG/ML injection Inject 150 mg into the shoulder, thigh, or buttocks every 90 minutes as needed. 0 Active ondansetron 4 mg disintegrating oral tablet (20 sources) Serotonin-3 Receptor Antagonist Start: 05-22-2020 End: 10-24-2024 take 1 tablet by mouth every eight hours as needed for nausea Ondansetron 4 MG tablet Discontinued 4 mg PO EVERY 8 HOURS NEEDED as needed for Nausea May 22, 2020 1:00am October 24, 2024 11:09am Start: 09-22-2018 End: 01-04-2022 ondansetron (Zofran) 4 MG ta blet Take 4 mg by mouth. 09/22/2018 Active Start: 06-29-2013 End: 07-01-2013 take 1 tablet by mouth every eight hours as needed for nausea Ondansetron 4 MG tablet Discontinued 4 mg PO EVERY 8 HOURS NEEDED as needed for Nausea June 29, 2013 1:00am July 01, 2013 7:26pm prochlorperazine 10 mg oral tablet (4 sources) Phenothiazine Start: 04-14-2022 End: 04-17-2022 take 1 capsule by mouth three times daily Compazine use prochlorperazine Dose : 10 mg =, Oral, TID, # 12 cap(s), 0 Refill(s), Cough Wheeze Start Date: 04/14/22 Stop Date: 04/17/22 Status: Ordered QUEtiapine 25 mg oral tablet (7 sources) Atypical Antipsychotic Start: 04-23-2020 End: 10-24-2024 take 1-2 tablets by mouth at bedtime Quetiapine 25 MG tablet Discontinued 25 mg PO AT BEDTIME May 22, 2020 1:00am October 24, 2024 11:10am 1-2 tabs rizatriptan 10 mg oral tablet (15 sources) Serotonin-1b and Serotonin-1d Receptor Agonist Start: 03-17-2023 End: 08-17-2023 take 1 tablet by mouth every two hours, then take 3 tablets by mouth every twenty-four hours rizatriptan (Maxalt) 10 MG tablet take 1 tablet by mouth AT ONSET OF MIGRAINE. MAY REPEAT IN 2 HOURS. MAX 3 TABLETS IN 24 HOURS 9 tablet 0 03/17/2023 08/17/2023 Discontinued Start: 12-15-2022 End: 03-17-2023 take 1 tablet by mouth once as needed rizatriptan (Maxalt) 10 MG tablet Take 1 tablet (10 mg) by mouth Once as needed for migraine (may repeat x1) for up to 9 doses. May repeat in 2 hours if unresolved. Do not exceed 30 mg in 24 hours. 9 tablet 2 12/15/2022 03/17/2023 Discontinued sertraline 100 mg oral tablet (7 sources) Serotonin Reuptake Inhibitor Start: 08-12-2019 Sertraline HCl - 100 MG Oral Tablet Quantity: 60 Refills: 0 Start : 12-Aug-2019 Active Start: 05-30-2016 End: 10-24-2024 take 2 tablets by mouth at bedtime Sertraline 100 MG tablet Discontinued 200 mg PO AT BEDTIME May 30, 2016 1:00am October 24, 2024 11:11am Start: 05-30-2016 take 200 mg by mouth at bedtim e Sertraline Active 200 MG PO AT BEDTIME May 30, 2016 12:00am SUMAtriptan 50 mg oral tablet (2 sources) Serotonin-1b and Serotonin-1d Receptor Agonist Start: 10-06-2022 End: 12-15-2022 SUMAtriptan (Imitrex) 50 MG tablet Indications: Intractable chronic migraine without aura and without status migrainosus Take 1 tablet (50 mg) by mouth Once as needed for migraine (may repeat x1). May repeat dose once in 2 hours if no relief. Do not exceed 2 doses in 24 hours. 9 tablet 2 10/06/2022 12/15/2022 Discontinued (Ineffective) topiramate 50 mg oral tablet (8 sources) Start: 11-11-2022 End: 05-11-2023 topiramate 50 MG tablet Indications: Intractable chronic migraine without aura and without status migrainosus Take 1.5 tabs twice daily 90 tablet 3 11/11/2022 05/11/2023 Discontinued Start: 10-28-2022 End: 11-27-2022 topiramate 50 MG tablet Ryann cations: Intractable chronic migraine without aura and without status migrainosus Take 50 mg by mouth 2 times daily. Do not start before October 28, 2022. 60 tablet 2 10/28/2022 11/11/2022 Discontinued (Reorder) Start: 10-06-2022 End: 11-11-2022 take 1 tablet by mouth once daily in the evening topiramate (Topamax) 25 MG tablet Indications: Intractable chronic migraine without aura and without status migrainosus Take 1 tab po qpm for 7 days, then take 1 tab po BID for 7 days, then take 1 tab po QAM and 2 tabs po QPM for 7 days, then stop these and start the 50 mg pills 42 tablet 0 10/06/2022 11/11/2022 Discontinued (Therapy completed) traZODone hydrochloride 150 mg oral tablet (5 sources) Serotonin Reuptake Inhibitor Start: 07-16-2019 End: 10-24-2024 take 1 tablet by mouth at bedtime Trazodone 150 MG tablet Discontinued 150 mg PO AT BEDTIME July 16, 2019 1:00am October 24, 2024 11:11am Problems Active Problems Problem Classification Problem Date Documented Da te Episodic/Chronic Abdominal pain (5 sources) Generalized abdominal pain; Translations: [Abdominal pain] Onset: 5 10-24-2024 Episodic Anxiety disorders (8 sources) Anxiety 11-19-2019 Chronic Attention-deficit, conduct, and disruptive behavior disorders (20 sources) Attention deficit hyperactivity disorder; Translations: [Attention-deficit hyperactivity disorder, unspecified type] Onset: 2 12-10-2013 Chronic Contraceptive and procreative management (11 sources) Contraception ; Translations: [Encounter for surveillance of injectable contraceptive] Onset: 5 10-06-2022 Episodic Disorders of teeth and jaw (1 source) Right temporomandibular joint pain dysfunction syndrome; Translations: [Arthralgia of right temporomandibular joint] Episodic Esophageal disorders (8 sources) Gastroesophageal reflux disease without esophagitis 12-03-2020 Chronic Genitourinary symptoms and ill-defined conditions (20 sources) Urinary incontinence; Translations: [Unspecified urinary incontinence] Onset: 4 03-22-2022 Chronic Headache; including migraine (20 sources) Chronic intractable migraine without aura; Translations: [Chronic migraine without aura, intractable, without status migrainosus] Onset: 4 Chronic Headache; including migraine (1 source) Medication overuse headache; Translations: [Drug-induced headache, not elsewhere classified, not intractable] Episodic Inflammatory diseases of female pelvic organs (2 sources) Vaginitis; Translations: [Acute vaginitis] 10-23-2024 Episodic Mood disorders (20 sources) Bipolar I disorder; Translations: [Bipolar disorder] Onset: 7 07-20-2020 Chronic Other acquired deformities (20 sources) Postural kyphosis; Translations: [Postural kyphosis, site unspecified] Onset: 0 03-22-2022 Chronic Other female genital disorders (1 source) Pruritus of vagina; Translations: [Other specified noninflammatory disorders of vagina] 12-13-2023 Episodic Other gastrointestinal disorders (9 sources) Irritable bowel syndrome; Translations: [Irritable bowel syndrome without diarrhea] 05-28-2020 Chronic Other gastrointestinal disorders (2 sources) Constipation alternates with diarrhea; Translations: [Alternating constipation and diarrhea] Episodic Other gastrointestinal disorders (4 sources) Personal history of other diseases of the digestive system; Translations: [History of gastritis] Episodic Other gastrointestinal disorders (2 sources) Diarrhea; Translations: [Diarrhea, unspecified] 10-24-2024 Episodic Other gastrointestinal disorders (2 sources) Diarrhea, unspecified; Translations: [Diarrhea, unspecified] Onset: 5 Episodic Other lower respiratory disease (1 source) Cough; Translations: [Cough, unspecified] Onset: 2 Episodic Other lower respiratory disease (2 sources) Wheezing; Translations: [Wheezing] Onset: 2 Episodic Other nutritional; endocrine; and metabolic disorders (20 sources) Obesity; Translations: [Obesity, unspecified] Onset: 2 03-22-2022 Chronic Other nutritional; endocrine; and metabolic disorders (1 source) Weight increased; Translations: [Abnormal weight gain] 10-18-2024 Episodic Other upper respiratory infections (4 sources) Acute sinusitis, unspecified; Translations: [Sore throat symptom] Onset: 2 Episodic Screening and history of mental health and substance abuse codes (4 sources) H/O: anxiety state; Translations: [H/O: depression] Episodic Spondylosis; intervertebral disc disorders; other back problems (20 sources) Disorder of lumbar disc; Translations: [Displacement of lumbar intervertebral disc without myelopathy] 10-08-2020 Chronic Spondylosis; intervertebral disc disorders; other back problems (20 sources) Lumbosacral radiculopathy; Translations: [Chronic neck pain] Onset: 0 07-29-2019 Episodic Comment on above: at L5 Superficial injury; contusion (5 sources) Contusion of right hand; Translations: [Contusion of right hand, initial encounter] 11-08-2019 Episodic Unclassified (2 sources) Injections; Translations: [Injections] Onset: 5 Unclassified (1 source) Low back pain, unspecified; Translations: [Low back pain, unspecified] Onset: 5 Urinary tract infections (2 sources) Urinary tract infectious disease; Translations: [Urinary tract infection, site not specified] Onset: 2 Episodic Past or Other Problems Problem Classification Problem Date Documented Date Episodic/Chronic Bacterial infection; unspecified site (20 sources) Cutaneous actinomycosis; 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] Onset: 12-13-2007 03-22-2022 Episodic Genitourinary symptoms and ill-defined conditions (3 sources) Dysuria; Translations: [Dysuria] Onset: 12-13-2023 12-12-2023 Episodic Hemorrhage during ; abruptio placenta; placenta previa (20 sources) Hemorrhage in early , unspecified; Translations: [Unspecified hemorrhage in early , antepartum condition or complication] Onset: 07-11-2013 03-22-2022 Episodic Malaise and fatigue (1 source) Other fatigue; Translations: [Other fatigue] Onset: 05-14-2024 Episodic Nausea and vomiting (20 sources) Nausea and vomiting; Translations: [Nausea] Onset: 07-11-2013 Episodic Other complications of (20 sources) Maternal tobacco use in ; Translations: [Smoking (tobacco) complicating , unspecified trimester] Onset: 07-11-2013 03-22-2022 Episodic Other complications of (20 sources) Vomiting of , unspecified; Translations: [Unspecified vomiting of , unspecified as to episode of care or not applicable] Onset: 07-11-2013 03-22-2022 Episodic Other connective tissue disease (20 sources) Patellar tendonitis; Translations: [Patellar tendinitis, unspecified knee] Onset: 04-29-2005 03-22-2022 Episodic Other female genital disorders (2 sources) Other specified noninflammatory disorders of vagina; Translations: [Other specified noninflammatory disorders of vagina] Onset: 12-13-2023 Episodic Other screening for suspected conditions (not mental disorders or infectious disease) (3 sources) Cancer cervix screening status; Translations: [Encounter for screening for malignant neoplasm of cervix] Onset: 12-13-2023 12-13-2023 Episodic Other skin disorders (20 sources) Acne vulgaris; Translations: [Acne vulgaris] Onset: 09-08-2009 03-22-2022 Episodic Other skin disorders (20 sources) Skin tag; Translations: [Other hypertrophic disorders of the skin] Onset: 03-12-2009 03-22-2022 Episodic Sexually transmitted infections (not HIV or hepatitis) (20 sources) Gonorrhea; Translations: [Gonococcal infection, unspecified] Onset: 04-05-2013 03-22-2022 Episodic Sprains and strains (20 sources) Sprain of ankle; Translations: [Sprain of unspecified ligament of unspecified ankle, initial encounter] Onset: 04-29-2005 03-22-2022 Episodic Unclassified (1 source) Lumbago with sciatica, right side Onset: 07-17-2018 Unclassified (2 sources) History of clinical finding in subject; Translations: [History of chronic fatigue] Viral infection (20 sources) Verruca vulgaris; Translations: [Viral wart, unspecified] Onset: 06-27-2008 03-22-2022 Episodic Results Test Name Value Interpretation Reference Range Facility Spine Lumbar (Routine)on Spine Lumbar (Routine) [facility] [address] [place] [address] Spine Lumbar (Routine) MR#: [id number] Acct: [id number] Name: POLINA GIRON Rep #: [id number] : 1990 F 34 From: Kennedy Raygoza MD PCP: Dr. Nataliya Gomez MD Status: REG CLI Study: Spine Lumbar (Routine) Date of Exam: 11/02/24 Exam# [id number] Ordering Dr: Nataliya Gomez MD PROCEDURE: SPINE LUMBAR (ROUTINE) 11/02/2024 REASON FOR EXAM: LUMBAR PAIN TECHNIQUE: Multiplanar and multisequence images were obtained without IV contrast administration. FINDINGS: Normal lumbar vertebral body height and alignment. Normal conus. Normal abdominal aorta. No paravertebral masses. L1-2, L2-3 and L5-S1 unremarkable. At L3-4, left paracentral protrusion produces moderate spinal stenosis without direct nerve root impingement. Disc material comes close to the left L4 nerve root sleeve as it exits the thecal sac. At L4-5, mild canal narrowing from concentric disc bulging with facet arthrosis. MRI/Spine Lumbar (Routine) IMPRESSION: Central protrusion at L3-4 with moderate canal stenosis, eccentric to the left. Mild canal narrowing at L4-5 due to broad-based protrusion/bulge without direct nerve root compression Reading Location: [facility] CC: Dr. Nataliya Gomez MD Sheriffs: Signed Normal [facility] ANCAon 11-01-2024 Atypical pANCA <1:20 Normal Neg:<1:20 [facility] Comment on above: Order Comment: Test( s) [id number]-Lfhdmjemophxfe; [id number]-Ktxaouesywz; [id number]-Lkbvyidjbrh developed and its performance characteristicsdetermined by [facility]. It has not been cleared or approvedby the Food and Drug Administration. Result Comment: The atypical pANCA pattern has been observed in a significant percentage of patients with ulcerative colitis, primary sclerosing cholangitis and autoimmune hepatitis. Performed By: #### M 100.1000 #### [facility] [address] [place], [place], [id number] (101) Cytoplasmic Ab <1:20 Normal Neg:<1:20 [facility] Comment on above: Order Comment: Test( s) [id number]-Yfaibhjuhydxtk; [id number]-Hudnbrzsndu; [id number]-Sdysnjrxzbq developed and its performance characteristicsdetermined by [employer]. It has not been cleared or approvedby the Food and Drug Administration. Performed By: #### M 100.1000 #### [facility] [address] [place], [place], [id number] (553) Perinuclear Ab. <1:20 Normal Neg:<1:20 [facility] Comment on above: Order Comment: Test( s) [id number]-Alfhrsitsapakc; [id number]-Deutctiefkf; [id number]-Byjipkysydr developed and its performance characteristicsdetermined by [employer]. It has not been cleared or approvedby the Food and Drug Administration. Result Comment: The presence of positive fluorescence exhibiting P-ANCA or C-ANCA patterns alone is not specific for the diagnosis of Danielle's Granulomatosis (WG) or microscopic polyangiitis. Decisions about treatment should not be based solely on ANCA IFA results. The International ANCA Group Consensus recommends follow up testing of positive sera with both MS- 3 and MPO-ANCA enzyme immunoassays. As many as 5% serum samples are positive only by EIA. Ref. AM J Clin Pathol 1999;111:507-513. Performed By: #### M 100.1000 #### [facility] [address] [place], [place], [address] Catecholamines, Plasmaon DOPAMINE 12.9 pg/mL Normal 0.0-36.7 [facility] Comment on above: Order Comment: Test( s) [id number]-Gfvmmznkyfpsta; 850128-Xplcvwujvhx; 525971-Pliznpjpfyn developed and its performance characteristicsdetermined by [employer]. It has not been cleared or approvedby the Food and Drug Administration. Performed By: #### L 501.6710, L100.0100, L2100.0000, L3100.5440, L5500.0410, L3200.1100, L3100.3425, L501.2400, L503.0106, L101.9900, L3430.0100, L501.2300, L3300.1800, L3300.1200, L501.2450, L3100.4810, L3410.2400, L3440.5000, L3000.0375, L500.4050, L3100.1350, L501.5200, L501.3620 ####[facility] [address] [place], [place], [address] EPINEPHRINE 27.5 pg/mL Normal 0.0-55.4 [facility] Comment on above: Order Comment: Test( s) [id number]-Mvfrkpyrbwdxxg; 490727-Awnmldescea; 620312-Thsjqbohdhg developed and its performance characteristicsdetermined by [facility]. It has not been cleared or approvedby the Food and Drug Administration. Performed By: #### L 501.6710, L100.0100, L2100.0000, L3100.5440, L5500.0410, L3200.1100, L3100.3425, L501.2400, L503.0106, L101.9900, L3430.0100, L501.2300, L3300.1800, L3300.1200, L501.2450, L3100.4810, L3410.2400, L3440.5000, L3000.0375, L500.4050, L3100.1350, L501.5200, L501.3620 ####[facility] [address] [place], [place], [id number] NOREPINEPHRINE 529 pg/mL Abnormal 115-524 [facility] Comment on above: Order Comment: Test( s) 950600-Iquumbsosstrcj; 197977-Mvtucqpallr; 985128-Atqvwzsdtju developed and its performance characteristicsdetermined by [facility]. It has not been cleared or approvedby the Food and Drug Administration. Performed By: #### L 501.6710, L100.0100, L2100.0000, L3100.5440, L5500.0410, L3200.1100, L3100.3425, L501.2400, L503.0106, L101.9900, L3430.0100, L501.2300, L3300.1800, L3300.1200, L501.2450, L3100.4810, L3410.2400, L3440.5000, L3000.0375, L500.4050, L3100.1350, L501.5200, L501.3620 ####[facility] [address] [place], [place], [id number] Celiac Disease Profileon ENDOMYSIAL IGA Negative Normal Negative [facility] Comment on above: Order Comment: Test( s) [id number]-Ejnzqumavngslu; 808074-Acfocvcsheb; 651754-Dovdignkmoj developed and its performance characteristicsdetermined by [employer]. It has not been cleared or approvedby the Food and Drug Administration. Performed By: #### M 100.1000 #### [facility] [address] [place], [address] tTG IGA <2 Normal 0-3 [facility] Comment on above: Order Comment: Test( s) [id number]-Hlxtpgcuzcaflj; 238763-Jlsmdfsdacf; 767357-Wuewlgffavn developed and its performance characteristicsdetermined by [employer]. It has not been cleared or approvedby the Food and Drug Administration. Result Comment: Nega tive 0 - 3 Weak Positive 4 - 10 Positive >10 Tissue Transglutaminase (tTG) has been identified as the endomysial antigen. Studies have demonstr- ated that endomysial IgA antibodies have over 99% specificity for gluten sensitive enteropathy. Performed By: #### M 100.1000 #### [facility] [address] [place], [place], [id number] Erythropoietinon 11-01-2024 ERYTHROPOIETIN 9.0 mIU/mL Normal 2.6-18.5 [facility] Comment on above: Order Comment: Test( s) [id number]-Ymgonejtoceuic; 501339-Glnbzxuewdw; 738835-Fmlekuzqrfn developed and its performance characteristicsdetermined by [employer]. It has not been cleared or approvedby the Food and Drug Administration. Result Comment: [employer] DxI 800 Immunoassay System Values obtained with different assay methods or kits cannot be used interchangeably. Results cannot be interpreted as absolute evidence of the presence or absence of malignant disease. Performed By: #### L 501.6710, L100.0100, L2100.0000, L3100.5440, L5500.0410, L3200.1100, L3100.3425, L501.2400, L503.0106, L101.9900, L3430.0100, L501.2300, L3300.1800, L3300.1200, L501.2450, L3100.4810, L3410.2400, L3440.5000, L3000.0375, L500.4050, L3100.1350, L501.5200, L501.3620 ####[facility] [address] [place], [place], [address] Gastrin, Serumon 11-01-2024 GASTRIN 318 pg/mL High 0-115 [facility] Comment on above: Order Comment: Test( s) [id number]-Qquzpcuphwftsg; 827247-Zglvnzivwnl; 778697-Jpjasbtlinj developed and its performance characteristicsdetermined by [employer]. It has not been cleared or approvedby the Food and Drug Administration. Result Comment: Validic Immulite 2000 Immunochemiluminometric assay (ICMA) Values obtained with different assay methods or kits cannot be used interchangeably. Results cannot be interpreted as absolute evidence of the presence or absence of malignant disease. Performed By: #### M 100.1000 #### [facility] [address] [place], [address] Hepatitis Panel Acuteon - HEP B CORE,IgM Negative Normal Negative [facility] Comment on above: Order Comment: Test( s) 419190-Gsoejkxwwblwne; 858073-Ovfsupzckml; 056417-Fwnewkpnzvq developed and its performance characteristicsdetermined by [employer]. It has not been cleared or approvedby the Food and Drug Administration. Performed By: #### L 501.6710, L100.0100, L2100.0000, L3100.5440, L5500.0410, L3200.1100, L3100.3425, L501.2400, L503.0106, L101.9900, L3430.0100, L501.2300, L3300.1800, L3300.1200, L501.2450, L3100.4810, L3410.2400, L3440.5000, L3000.0375, L500.4050, L3100.1350, L501.5200, L501.3620 ####[facility] [address] [place], [address] HEP B SURF AG Negative Normal Negative [facility] Comment on above: Order Comment: Test( s) 491470-Wqcfusuvorcszj; 611041-Abkzymsujwl; 010764-Kenfgvtopjg developed and its performance characteristicsdetermined by [employer]. It has not been cleared or approvedby the Food and Drug Administration. Performed By: #### L 501.6710, L100.0100, L2100.0000, L3100.5440, L5500.0410, L3200.1100, L3100.3425, L501.2400, L503.0106, L101.9900, L3430.0100, L501.2300, L3300.1800, L3300.1200, L501.2450, L3100.4810, L3410.2400, L3440.5000, L3000.0375, L500.4050, L3100.1350, L501.5200, L501.3620 ####[facility] [address] [place], [address] HEP C VIRUS AB Non-Reactive Normal Non Reactive [facility] Comment on above: Order Comment: Test( s) 078069-Bzndokufwmkpiq; 444977-Esmizcgxdtp; 205250-Menzdyendxs developed and its performance characteristicsdetermined by [employer]. It has not been cleared or approvedby the Food and Drug Administration. Performed By: #### L 501.6710, L100.0100, L2100.0000, L3100.5440, L5500.0410, L3200.1100, L3100.3425, L501.2400, L503.0106, L101.9900, L3430.0100, L501.2300, L3300.1800, L3300.1200, L501.2450, L3100.4810, L3410.2400, L3440.5000, L3000.0375, L500.4050, L3100.1350, L501.5200, L501.3620 ####[facility] [address] [facility] [address] [place], [place], [address] HEPATITIS A-IgM Negative Normal Negative [facility] Comment on above: Order Comment: Test( s) 805005-Olxfnmtbapcytz; 798847-Wzfmspoxnds; 653416-Pbskdssdnnd developed and its performance characteristicsdetermined by [employer]. It has not been cleared or approvedby the Food and Drug Administration. Result Comment: A ne gative anti-HAV IgM result suggests no recent or current HAV infection. Performed By: #### L 501.6710, L100.0100, L2100.0000, L3100.5440, L5500.0410, L3200.1100, L3100.3425, L501.2400, L503.0106, L101.9900, L3430.0100, L501.2300, L3300.1800, L3300.1200, L501.2450, L3100.4810, L3410.2400, L3440.5000, L3000.0375, L500.4050, L3100.1350, L501.5200, L501.3620 ####[facility] [address] [facility] [place], [address] ADELE + Protein Elect, Serumon 11-01-2024 Albumin [Mass/Vol] 4.0 g/dL Normal 2.9-4.4 [facility] Comment on above: Order Comment: Test( s) 690637-Uyyjqncqvmoqbx; 290405-Pnkucuwtklr; 135821-Qhoujwsvciv developed and its performance characteristicsdetermined by [employer]. It has not been cleared or approvedby the Food and Drug Administration.N Performed By: #### L 501.6710, L100.0100, L2100.0000, L3100.5440, L5500.0410, L3200.1100, L3100.3425, L501.2400, L503.0106, L101.9900, L3430.0100, L501.2300, L3300.1800, L3300.1200, L501.2450, L3100.4810, L3410.2400, L3440.5000, L3000.0375, L500.4050, L3100.1350, L501.5200, L501.3620 ####[facility] [address] [place], [address] Albumin/Globulin [Mass ratio] 1.2 {ratio} Normal 0.7-1.7 [facility] Comment on above: Order Comment: Test( s) 784415-Jvpzsvesubprsc; 927155-Khkqyslglut; 623855-Buidtjentha developed and its performance characteristicsdetermined by [employer]. It has not been cleared or approvedby the Food and Drug Administration.N Performed By: #### L 501.6710, L100.0100, L2100.0000, L3100.5440, L5500.0410, L3200.1100, L3100.3425, L501.2400, L503.0106, L101.9900, L3430.0100, L501.2300, L3300.1800, L3300.1200, L501.2450, L3100.4810, L3410.2400, L3440.5000, L3000.0375, L500.4050, L3100.1350, L501.5200, L501.3620 ####[facility] [address] [place], [address] LTYOG-7-OHVX 0.3 g/dL Normal 0.0-0.4 [facility] Comment on above: Order Comment: Test( s) 152971-Zjzdxspooolxdh; 676913-Amafsazjxwl; 578697-Kgzlitfpbvg developed and its performance characteristicsdetermined by [employer]. It has not been cleared or approvedby the Food and Drug Administration.N Performed By: #### L 501.6710, L100.0100, L2100.0000, L3100.5440, L5500.0410, L3200.1100, L3100.3425, L501.2400, L503.0106, L101.9900, L3430.0100, L501.2300, L3300.1800, L3300.1200, L501.2450, L3100.4810, L3410.2400, L3440.5000, L3000.0375, L500.4050, L3100.1350, L501.5200, L501.3620 ####[facility] [address] [place], [address] UANLH-3-KQFC 0.9 g/dL Normal 0.4-1.0 [facility] Comment on above: Order Comment: Test( s) 423801-Utnfxcdrbmqdnp; 011656-Atqtfrnsran; 678064-Tmyxqexkiau developed and its performance characteristicsdetermined by [employer]. It has not been cleared or approvedby the Food and Drug Administration.N Performed By: #### L 501.6710, L100.0100, L2100.0000, L3100.5440, L5500.0410, L3200.1100, L3100.3425, L501.2400, L503.0106, L101.9900, L3430.0100, L501.2300, L3300.1800, L3300.1200, L501.2450, L3100.4810, L3410.2400, L3440.5000, L3000.0375, L500.4050, L3100.1350, L501.5200, L501.3620 ####[facility] [address] [place], [address] BETA GLOBULIN 1.2 g/dL Normal 0.7-1.3 [facility] Comment on above: Order Comment: Test( s) 270677-Lpkiyitiagaclf; 360165-Vxwkiftegqi; 563335-Pqjplpzhmur developed and its performance characteristicsdetermined by [employer]. It has not been cleared or approvedby the Food and Drug Administration.N Performed By: #### L 501.6710, L100.0100, L2100.0000, L3100.5440, L5500.0410, L3200.1100, L3100.3425, L501.2400, L503.0106, L101.9900, L3430.0100, L501.2300, L3300.1800, L3300.1200, L501.2450, L3100.4810, L3410.2400, L3440.5000, L3000.0375, L500.4050, L3100.1350, L501.5200, L501.3620 ####[facility] [address] [place], [address] GAMMA GLOBULIN 1.0 g/dL Normal 0.4-1.8 [facility] Comment on above: Order Comment: Test( s) 693686-Frjshtzzqmwnwx; 059895-Lcflkastoqf; 900586-Ixohokvohas developed and its performance characteristicsdetermined by [employer]. It has not been cleared or approvedby the Food and Drug Administration.N Performed By: #### L 501.6710, L100.0100, L2100.0000, L3100.5440, L5500.0410, L3200.1100, L3100.3425, L501.2400, L503.0106, L101.9900, L3430.0100, L501.2300, L3300.1800, L3300.1200, L501.2450, L3100.4810, L3410.2400, L3440.5000, L3000.0375, L500.4050, L3100.1350, L501.5200, L501.3620 ####[facility] [address] [place], [address] Globulin (S) [Mass/Vol] 3.4 g/dL Normal 2.2-3.9 [facility] Comment on above: Order Comment: Test( s) 052669-Fktxjkvygmibou; 924260-Cuqdvsgnepu; 246812-Uhbfwhiowoa developed and its performance characteristicsdetermined by [employer]. It has not been cleared or approvedby the Food and Drug Administration.N Performed By: #### L 501.6710, L100.0100, L2100.0000, L3100.5440, L5500.0410, L3200.1100, L3100.3425, L501.2400, L503.0106, L101.9900, L3430.0100, L501.2300, L3300.1800, L3300.1200, L501.2450, L3100.4810, L3410.2400, L3440.5000, L3000.0375, L500.4050, L3100.1350, L501.5200, L501.3620 ####[facility] [address] [place], [place], [id number] ADELE RESULT,S Comment Normal . [facility] Comment on above: Order Comment: Test( s) 366300-Cbiexlvbcfdgeg; 512015-Vqtdrvtnwnz; 793297-Piuleufpsvc developed and its performance characteristicsdetermined by [employer]. It has not been cleared or approvedby the Food and Drug Administration.N Result Comment: No m onoclonality detected. Performed By: #### L 501.6710, L100.0100, L2100.0000, L3100.5440, L5500.0410, L3200.1100, L3100.3425, L501.2400, L503.0106, L101.9900, L3430.0100, L501.2300, L3300.1800, L3300.1200, L501.2450, L3100.4810, L3410.2400, L3440.5000, L3000.0375, L500.4050, L3100.1350, L501.5200, L501.3620 ####[facility] [address] [place], [place], [address] IMMUNOGLOB A QN 104 mg/dL Normal 87-352 [facility] Comment on above: Order Comment: Test( s) 344602-Mjgsaysbdptjwi; 566252-Lzlbnijlexm; 343161-Asiykdixmbg developed and its performance characteristicsdetermined by [employer]. It has not been cleared or approvedby the Food and Drug Administration.N Performed By: #### L 501.6710, L100.0100, L2100.0000, L3100.5440, L5500.0410, L3200.1100, L3100.3425, L501.2400, L503.0106, L101.9900, L3430.0100, L501.2300, L3300.1800, L3300.1200, L501.2450, L3100.4810, L3410.2400, L3440.5000, L3000.0375, L500.4050, L3100.1350, L501.5200, L501.3620 ####[facility] [address] [facility] [place], [place], [phone]) IMMUNOGLOB G QN 998 mg/dL Normal 586-1602 [facility] Comment on above: Order Comment: Test( s) 748895-Qeylqglktgngbn; 982230-Pqiptshyzcz; 771351-Espkwvdndsc developed and its performance characteristicsdetermined by [employer]. It has not been cleared or approvedby the Food and Drug Administration.N Performed By: #### L 501.6710, L100.0100, L2100.0000, L3100.5440, L5500.0410, L3200.1100, L3100.3425, L501.2400, L503.0106, L101.9900, L3430.0100, L501.2300, L3300.1800, L3300.1200, L501.2450, L3100.4810, L3410.2400, L3440.5000, L3000.0375, L500.4050, L3100.1350, L501.5200, L501.3620 ####[facility] [address] [facility] [place], [place], [phone]) IMMUNOGLOB M QN 69 mg/dL Normal 26-217 [facility] Comment on above: Order Comment: Test( s) 736943-Maswxagqtbvjsi; 530076-Dkackzuxlcc; 296938-Uwxrxsliudp developed and its performance characteristicsdetermined by [facility]. It has not been cleared or approvedby the Food and Drug Administration.N Performed By: #### L 501.6710, L100.0100, L2100.0000, L3100.5440, L5500.0410, L3200.1100, L3100.3425, L501.2400, L503.0106, L101.9900, L3430.0100, L501.2300, L3300.1800, L3300.1200, L501.2450, L3100.4810, L3410.2400, L3440.5000, L3000.0375, L500.4050, L3100.1350, L501.5200, L501.3620 ####[facility] [address] [place], [address] M-Villa Not Observed Normal Not Observed [facility] Comment on above: Order Comment: Test( s) 041361-Qtdsxtdplsiylf; 993531-Wzomgeqdrwa; 902570-Lsvoilzhtgb developed and its performance characteristicsdetermined by [employer]. It has not been cleared or approvedby the Food and Drug Administration.N Performed By: #### L 501.6710, L100.0100, L2100.0000, L3100.5440, L5500.0410, L3200.1100, L3100.3425, L501.2400, L503.0106, L101.9900, L3430.0100, L501.2300, L3300.1800, L3300.1200, L501.2450, L3100.4810, L3410.2400, L3440.5000, L3000.0375, L500.4050, L3100.1350, L501.5200, L501.3620 ####[facility] [address] [place], [address] NOTE: Comment Normal . [facility] Comment on above: Order Comment: Test( s) 627367-Jvpmjpgeapqfpf; 039786-Mjroypyyuya; 152077-Neecbaotjzl developed and its performance characteristicsdetermined by [facility]. It has not been cleared or approvedby the Food and Drug Administration.N Result Comment: Prot ein electrophoresis scan will follow via computer, mail, or daylight driller delivery. Performed By: #### L 501.6710, L100.0100, L2100.0000, L3100.5440, L5500.0410, L3200.1100, L3100.3425, L501.2400, L503.0106, L101.9900, L3430.0100, L501.2300, L3300.1800, L3300.1200, L501.2450, L3100.4810, L3410.2400, L3440.5000, L3000.0375, L500.4050, L3100.1350, L501.5200, L501.3620 ####[facility] [address] [facility] [place], [place], [id number] Protein [Mass/Vol] 7.4 g/dL Normal 6.0-8.5 [facility] Comment on above: Order Comment: Test( s) 612421-Qbzltclnceyvmf; 908271-Alieasduzxl; 922615-Htjbbxwkhza developed and its performance characteristicsdetermined by [facility]. It has not been cleared or approvedby the Food and Drug Administration.N Performed By: #### L 501.6710, L100.0100, L2100.0000, L3100.5440, L5500.0410, L3200.1100, L3100.3425, L501.2400, L503.0106, L101.9900, L3430.0100, L501.2300, L3300.1800, L3300.1200, L501.2450, L3100.4810, L3410.2400, L3440.5000, L3000.0375, L500.4050, L3100.1350, L501.5200, L501.3620 ####[facility] [address] [facility] [place], [place], [id number] Immunoglobulins G/A/M/Cy IMMUNOGLOB E QN 4 IU/mL Low 6-495 [facility] Comment on above: Order Comment: Test( s) 777802-Euhdiqavmelkhq; 771224-Hjenfdxcodh; 001633-Armcjhglqyt developed and its performance characteristicsdetermined by [facility]. It has not been cleared or approvedby the Food and Drug Administration.N Performed By: #### M 100.1000 #### [facility] [address] [place], [place], [id number] JAK2 Mutation Analysison JAK2 COMMENT Comment Normal . [facility] Comment on above: Order Comment: Test( s) 135202-Mhccxozkwfcggy; 118675-Jhbyxrkpnpb; 576058-Ijfeajoejza developed and its performance characteristicsdetermined by [employer]. It has not been cleared or approvedby the Food and Drug Administration. Result Comment: Lani Molina, PhD, [facility] Director, Molecular Oncology [facility] [place] [address] This test was developed and its performance characteristics determined by [employer]. It has not been cleared or approved by the Food and Drug Administration. Performed By: #### L 501.6710, L100.0100, L2100.0000, L3100.5440, L5500.0410, L3200.1100, L3100.3425, L501.2400, L503.0106, L101.9900, L3430.0100, L501.2300, L3300.1800, L3300.1200, L501.2450, L3100.4810, L3410.2400, L3440.5000, L3000.0375, L500.4050, L3100.1350, L501.5200, L501.3620 ####[facility] [address] [place], [place], [address] JAK2 COMMENT 2 Comment Normal . [facility] Comment on above: Order Comment: Test( s) 666129-Kyefzylktkvglz; 049889-Pjizozefcfx; 292239-Ajnjuidhomf developed and its performance characteristicsdetermined by [facility]. It has not been cleared or approvedby the Food and Drug Administration. Result Comment: JAK2 is a cytoplasmic tyrosine kinase with a powell role in signal transduction from multiple hematopoietic growth factor receptors. A point mutation within exon 14 of the JAK2 gene (L1194B) encoding a valine to phenylalanine substitution at position 617 of the JAK2 protein (V617F) has been identified in most patients with polycythemia vera, and in about half of those with either essential thrombocythemia or idiopathic myelofibrosis. The V617F has also been detected, although infrequently, in other myeloid disorders such as chronic myelomonocytic leukemia and chronic neutrophilic luekemia. V617F is an acquired mutation that alters a highly conserved valine present in the negative regulatory JH2 domain of the JAK2 protein and is predicted to dysregulate kinase activity. Methodology: Total genomic DNA was extracted and subjected to TaqMan real-time PCR amplification/detection. Two amplification products per sample were monitored by real-time PCR using primers/probes specific to JAK2 wild type (WT) and JAK2 mutant V617F. The [employer] Absolute Quantitation software will compare the patient specimen valuse to the standard curves and generate percent values for wild type and mutant type. In vitro studies have indicated that this assay has an analytical sensitivity of 1%. References: Jaime EJ, Berto PASTOR, Bakari PJ, et al. Acquired mutation of the tyrosine kinase JAK2 in human myeloproliferative disorders. Lancet. 2005 Aug 21; 365(9105):1286-8951. Perry C, David V, Lorrie Waller MELBA. 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 Nature. 2005 Sep 30; 900(5506):8036-1040. Pierce R, Fracisco F, Myles , et al. A gain-of- function mutation of JAK2 in myeloproliferative disorders. N Engl J Med. 2005 Sep 30; 35217):3786-5018. Performed By: #### L 501.6710, L100.0100, L2100.0000, L3100.5440, L5500.0410, L3200.1100, L3100.3425, L501.2400, L503.0106, L101.9900, L3430.0100, L501.2300, L3300.1800, L3300.1200, L501.2450, L3100.4810, L3410.2400, L3440.5000, L3000.0375, L500.4050, L3100.1350, L501.5200, L501.3620 ####[facility] [address] [place], [address] JAK2 MUT QUAL Comment Normal . [facility] Comment on above: Order Comment: Test( s) 549564-Luqesrdkggwhlw; 099925-Zpnoljaqkfy; 899970-Ppevguuzpjo developed and its performance characteristicsdetermined by [employer]. It has not been cleared or approvedby the Food and Drug Administration. Result Comment: Resu lt: NEGATIVE for the JAK2 V617F mutation. Interpretation: The G to T nucleotide change encoding the V617F mutation was not detected. This result does not rule out the presence of the JAK2 mutation at a level below the sensitivity of detection of this assay, or the presence of other mutations within JAK2 not detected by this assay. This result does not rule out a diagnosis of polycythemia vera, essential thrombocythemia or idiopathic myelofibrosis as the V617F mutation is not detected in all patients with these disorders. Performed By: #### L 501.6710, L100.0100, L2100.0000, L3100.5440, L5500.0410, L3200.1100, L3100.3425, L501.2400, L503.0106, L101.9900, L3430.0100, L501.2300, L3300.1800, L3300.1200, L501.2450, L3100.4810, L3410.2400, L3440.5000, L3000.0375, L500.4050, L3100.1350, L501.5200, L501.3620 ####[facility] [address] [place], [place], [id number] L2100.0000on 11-01-2024 ACCA 10 units Normal 0-90 [facility] Comment on above: Order Comment: Test( s) 535701-Qwejqawdaevoch; 527333-Epegebymxut; 876948-Kiyyqmdeoaz developed and its performance characteristicsdetermined by [employer]. It has not been cleared or approvedby the Food and Drug Administration. Result Comment: Nega tive: <80 Equivocal: 80-90 Positive: >90 Performed By: #### L 501.6710, L100.0100, L2100.0000, L3100.5440, L5500.0410, L3200.1100, L3100.3425, L501.2400, L503.0106, L101.9900, L3430.0100, L501.2300, L3300.1800, L3300.1200, L501.2450, L3100.4810, L3410.2400, L3440.5000, L3000.0375, L500.4050, L3100.1350, L501.5200, L501.3620 ####[facility] [address] [place], [address] ALCA 3 units Normal 0-60 [facility] Comment on above: Order Comment: Test( s) 858071-Rhcxxqdwiygvye; 182526-Dzhqirdlred; 271628-Ngcprhnvnay developed and its performance characteristicsdetermined by [employer]. It has not been cleared or approvedby the Food and Drug Administration. Result Comment: Nega tive:<55 Equivocal: 55-60 Positive: >60 Performed By: #### L 501.6710, L100.0100, L2100.0000, L3100.5440, L5500.0410, L3200.1100, L3100.3425, L501.2400, L503.0106, L101.9900, L3430.0100, L501.2300, L3300.1800, L3300.1200, L501.2450, L3100.4810, L3410.2400, L3440.5000, L3000.0375, L500.4050, L3100.1350, L501.5200, L501.3620 ####[facility] [address] [facility] [place], [address] AMCA 8 units Normal 0-100 [facility] Comment on above: Order Comment: Test( s) 216400-Llntxkcnpgjgfh; 735150-Eytxiydiubl; 790973-Blzbvyepecl developed and its performance characteristicsdetermined by [employer]. It has not been cleared or approvedby the Food and Drug Administration. Result Comment: Nega tive: <90 Equivocal: 90-100 Positive: >100 This test was developed and its performance characteristics determined by [facility]. It has not been cleared or approved by the Food and Drug Administration. The FDA has determined that such clearance or approval is not necessary. Performed By: #### L 501.6710, L100.0100, L2100.0000, L3100.5440, L5500.0410, L3200.1100, L3100.3425, L501.2400, L503.0106, L101.9900, L3430.0100, L501.2300, L3300.1800, L3300.1200, L501.2450, L3100.4810, L3410.2400, L3440.5000, L3000.0375, L500.4050, L3100.1350, L501.5200, L501.3620 ####[facility] [address] [facility] [place], [address] Atypical pANCA Negative Normal Negative [facility] Comment on above: Order Comment: Test( s) 641521-Msuqasheuqskoj; 438129-Ujzrvpwfygt; 090745-Gdnmiydzjbi developed and its performance characteristicsdetermined by [employer]. It has not been cleared or approvedby the Food and Drug Administration. Performed By: #### L 501.6710, L100.0100, L2100.0000, L3100.5440, L5500.0410, L3200.1100, L3100.3425, L501.2400, L503.0106, L101.9900, L3430.0100, L501.2300, L3300.1800, L3300.1200, L501.2450, L3100.4810, L3410.2400, L3440.5000, L3000.0375, L500.4050, L3100.1350, L501.5200, L501.3620 ####[facility] [address] [place], [address] COMMENT Comment Normal . [facility] Comment on above: Order Comment: Test( s) 643047-Bwvqrrlvmalrvg; 360005-Hdrgapsbfxw; 297820-Wueojeejosw developed and its performance characteristicsdetermined by [facility]. It has not been cleared or approvedby the Food and Drug Administration. Result Comment: [place] volodymyr is not suggestive of Inflammatory Bowel Disease Performed By: #### L 501.6710, L100.0100, L2100.0000, L3100.5440, L5500.0410, L3200.1100, L3100.3425, L501.2400, L503.0106, L101.9900, L3430.0100, L501.2300, L3300.1800, L3300.1200, L501.2450, L3100.4810, L3410.2400, L3440.5000, L3000.0375, L500.4050, L3100.1350, L501.5200, L501.3620 ####[facility] [address] [facility] [place], [place], [address] Result Comment: Not infected with HCV unless early or acute infection is suspected (which may be delayed in an immunocompromised individual), or other evidence exists to indicate HCV infection. [place] 4 units Normal 0-50 [facility] Comment on above: Order Comment: Test( s) 477876-Iejhqqsnuatpfv; 199562-Dseeprhlkif; 881444-Cixkjpjwjrl developed and its performance characteristicsdetermined by [employer]. It has not been cleared or approvedby the Food and Drug Administration. Result Comment: Nega tive: <45 Equivocal: 45-50 Positive: >50 Performed By: #### L 501.6710, L100.0100, L2100.0000, L3100.5440, L5500.0410, L3200.1100, L3100.3425, L501.2400, L503.0106, L101.9900, L3430.0100, L501.2300, L3300.1800, L3300.1200, L501.2450, L3100.4810, L3410.2400, L3440.5000, L3000.0375, L500.4050, L3100.1350, L501.5200, L501.3620 ####[facility] [address] [place], [place], [address] L3100.4810on 11-01-2024 Chromogranin A 87.6 ng/mL Normal 0.0-101.8 [facility] Comment on above: Order Comment: Test( s) 385610-Nbekpedizjbewc; 287980-Apuyvuoqznn; 260470-Zxekloxvynf developed and its performance characteristicsdetermined by [facility]. It has not been cleared or approvedby the Food and Drug Administration. Result Comment: Central Office Inspector mogranin A performed by [employer] methodology Values obtained with different assay methods or kits cannot be used interchangeably. Performed at: [address] [id number] Flask Carrier: Fortunato Santiago PhD, Phone: [phone] Performed at: [address] [id number] Flask Carrier: Dia Marquez MD, Phone: [phone] Performed at: [facility] [address] [place], [place] [id number] Flask Carrier: Collins Doran [facility], Phone: [phone] Performed at: [facility] [address] [place], [place] [id number] Flask Carrier: Collins Doran [facility], Phone: [phone] Performed By: #### M 100.1000 #### [facility] [address] [place], [place], [address] FRIEDA Comprehensive Panelon ANTI-DNA (DS)AB 1 IU/mL Normal 0-9 [facility] Comment on above: Result Comment: Nega tive <5 Equivocal 5 - 9 Positive >9 Performed By: #### L 501.6710, L100.0100, L2100.0000, L3100.5440, L5500.0410, L3200.1100, L3100.3425, L501.2400, L503.0106, L101.9900, L3430.0100, L501.2300, L3300.1800, L3300.1200, L501.2450, L3100.4810, L3410.2400, L3440.5000, L3000.0375, L500.4050, L3100.1350, L501.5200, L501.3620 ####[facility] [id number] [address] [place], [place], [id number] ANTI-SS-A < 0.2 Normal 0.0-0.9 [facility] Comment on above: Performed By: #### L 501.6710, L100.0100, L2100.0000, L3100.5440, L5500.0410, L3200.1100, L3100.3425, L501.2400, L503.0106, L101.9900, L3430.0100, L501.2300, L3300.1800, L3300.1200, L501.2450, L3100.4810, L3410.2400, L3440.5000, L3000.0375, L500.4050, L3100.1350, L501.5200, L501.3620 ####[facility] [address] [place], [address] ANTI-SS-B < 0.2 Normal 0.0-0.9 [facility] Comment on above: Performed By: #### L 501.6710, L100.0100, L2100.0000, L3100.5440, L5500.0410, L3200.1100, L3100.3425, L501.2400, L503.0106, L101.9900, L3430.0100, L501.2300, L3300.1800, L3300.1200, L501.2450, L3100.4810, L3410.2400, L3440.5000, L3000.0375, L500.4050, L3100.1350, L501.5200, L501.3620 ####[facility] [address] [facility] [place], [address] Allergen, Food Profileon CLAM <0.10 Normal Class 0 [facility] Comment on above: Performed By: #### L 501.6710, L100.0100, L2100.0000, L3100.5440, L5500.0410, L3200.1100, L3100.3425, L501.2400, L503.0106, L101.9900, L3430.0100, L501.2300, L3300.1800, L3300.1200, L501.2450, L3100.4810, L3410.2400, L3440.5000, L3000.0375, L500.4050, L3100.1350, L501.5200, L501.3620 ####[facility] [address] [place], [address] CODFISH <0.10 Normal Class 0 [facility] Comment on above: Performed By: #### L 501.6710, L100.0100, L2100.0000, L3100.5440, L5500.0410, L3200.1100, L3100.3425, L501.2400, L503.0106, L101.9900, L3430.0100, L501.2300, L3300.1800, L3300.1200, L501.2450, L3100.4810, L3410.2400, L3440.5000, L3000.0375, L500.4050, L3100.1350, L501.5200, L501.3620 ####[facility] [address] [place], [address] COMMENT Comment Normal . [facility] Comment on above: Result Comment: Mirela ahn of Specific IgE Class Description of Class ----- < 0.10 0 Negative 0.10 - 0.31 0/I Equivocal/Low 0.32 - 0.55 I Low 0.56 - 1.40 II Moderate 1.41 - 3.90 III High 3.91 - 19.00 IV Very High 19.01 - 100.00 V Very High >100.00 Very High Performed By: #### L 501.6710, L100.0100, L2100.0000, L3100.5440, L5500.0410, L3200.1100, L3100.3425, L501.2400, L503.0106, L101.9900, L3430.0100, L501.2300, L3300.1800, L3300.1200, L501.2450, L3100.4810, L3410.2400, L3440.5000, L3000.0375, L500.4050, L3100.1350, L501.5200, L501.3620 ####[facility] [address] [place], [address] CORN <0.10 Normal Class 0 [facility] Comment on above: Performed By: #### L 501.6710, L100.0100, L2100.0000, L3100.5440, L5500.0410, L3200.1100, L3100.3425, L501.2400, L503.0106, L101.9900, L3430.0100, L501.2300, L3300.1800, L3300.1200, L501.2450, L3100.4810, L3410.2400, L3440.5000, L3000.0375, L500.4050, L3100.1350, L501.5200, L501.3620 ####[facility] [address] [place], [address] EGG, WHITE <0.10 Normal Class 0 [facility] Comment on above: Performed By: #### L 501.6710, L100.0100, L2100.0000, L3100.5440, L5500.0410, L3200.1100, L3100.3425, L501.2400, L503.0106, L101.9900, L3430.0100, L501.2300, L3300.1800, L3300.1200, L501.2450, L3100.4810, L3410.2400, L3440.5000, L3000.0375, L500.4050, L3100.1350, L501.5200, L501.3620 ####[facility] [address] [place], [place], [id number] MILK (COW) <0.10 Normal Class 0 [facility] Comment on above: Performed By: #### L 501.6710, L100.0100, L2100.0000, L3100.5440, L5500.0410, L3200.1100, L3100.3425, L501.2400, L503.0106, L101.9900, L3430.0100, L501.2300, L3300.1800, L3300.1200, L501.2450, L3100.4810, L3410.2400, L3440.5000, L3000.0375, L500.4050, L3100.1350, L501.5200, L501.3620 ####[facility] [address] [facility] [place], [address] PEANUT <0.10 Normal Class 0 [facility] Comment on above: Performed By: #### L 501.6710, L100.0100, L2100.0000, L3100.5440, L5500.0410, L3200.1100, L3100.3425, L501.2400, L503.0106, L101.9900, L3430.0100, L501.2300, L3300.1800, L3300.1200, L501.2450, L3100.4810, L3410.2400, L3440.5000, L3000.0375, L500.4050, L3100.1350, L501.5200, L501.3620 ####[facility] [address] [place], [address] SCALLOP <0.10 Normal Class 0 [facility] Comment on above: Performed By: #### L 501.6710, L100.0100, L2100.0000, L3100.5440, L5500.0410, L3200.1100, L3100.3425, L501.2400, L503.0106, L101.9900, L3430.0100, L501.2300, L3300.1800, L3300.1200, L501.2450, L3100.4810, L3410.2400, L3440.5000, L3000.0375, L500.4050, L3100.1350, L501.5200, L501.3620 ####[facility] [address] [place], [place], [id number] SESAME SEED <0.10 Normal Class 0 [facility] Comment on above: Result Comment: Perf ormed at: - [address] [id number] Flask Carrier: Fortunato Santiago PhD, Phone: [phone] Performed at: - [facility] [id number] Flask Carrier: Dia Marquez MD, Phone: [phone] Performed By: #### L 501.6710, L100.0100, L2100.0000, L3100.5440, L5500.0410, L3200.1100, L3100.3425, L501.2400, L503.0106, L101.9900, L3430.0100, L501.2300, L3300.1800, L3300.1200, L501.2450, L3100.4810, L3410.2400, L3440.5000, L3000.0375, L500.4050, L3100.1350, L501.5200, L501.3620 ####[facility] [address] [place], [place], [address] SHRIMP <0.10 Normal Class 0 [facility] Comment on above: Performed By: #### L 501.6710, L100.0100, L2100.0000, L3100.5440, L5500.0410, L3200.1100, L3100.3425, L501.2400, L503.0106, L101.9900, L3430.0100, L501.2300, L3300.1800, L3300.1200, L501.2450, L3100.4810, L3410.2400, L3440.5000, L3000.0375, L500.4050, L3100.1350, L501.5200, L501.3620 ####[facility] [address] [place], [place], [address] SOYBEAN <0.10 Normal Class 0 [facility] Comment on above: Performed By: #### L 501.6710, L100.0100, L2100.0000, L3100.5440, L5500.0410, L3200.1100, L3100.3425, L501.2400, L503.0106, L101.9900, L3430.0100, L501.2300, L3300.1800, L3300.1200, L501.2450, L3100.4810, L3410.2400, L3440.5000, L3000.0375, L500.4050, L3100.1350, L501.5200, L501.3620 ####[facility] [address] [place], [address] WALNUT,(Food) <0.10 Normal Class 0 [facility] Comment on above: Performed By: #### L 501.6710, L100.0100, L2100.0000, L3100.5440, L5500.0410, L3200.1100, L3100.3425, L501.2400, L503.0106, L101.9900, L3430.0100, L501.2300, L3300.1800, L3300.1200, L501.2450, L3100.4810, L3410.2400, L3440.5000, L3000.0375, L500.4050, L3100.1350, L501.5200, L501.3620 ####[facility] [address] [place], [place], [id number] WHEAT <0.10 Normal Class 0 [facility] Comment on above: Performed By: #### L 501.6710, L100.0100, L2100.0000, L3100.5440, L5500.0410, L3200.1100, L3100.3425, L501.2400, L503.0106, L101.9900, L3430.0100, L501.2300, L3300.1800, L3300.1200, L501.2450, L3100.4810, L3410.2400, L3440.5000, L3000.0375, L500.4050, L3100.1350, L501.5200, L501.3620 ####[facility] [address] [place], [address] [id number] 10-29-2024 [id number] Entered in error [facility] Absolute lymphocyte countOrd ered By: Moses Montalvo on 10-24-2024 Lymphocytes Auto (Unsp spec) [#/Vol] 3.24 10*3/uL 0.83-4.51 [facility] Absolute neutrophil countOrd ered By: Moses Montalvo on 10-24-2024 Neutrophils (Bld) [#/Vol] 8.3 10*3/uL High 2.0-7.7 [facility] Amylaseon 10-24-2024 CYNTHIA 52 U/L Normal 28-100 [facility] Comment on above: Performed By: #### L 501.6710, L100.0100, L2100.0000, L3100.5440, L5500.0410, L3200.1100, L3100.3425, L501.2400, L503.0106, L101.9900, L3430.0100, L501.2300, L3300.1800, L3300.1200, L501.2450, L3100.4810, L3410.2400, L3440.5000, L3000.0375, L500.4050, L3100.1350, L501.5200, L501.3620 ####[facility] [address] [place], [address] Anion gap in Serum or Plasma Ordered By: Moses Montalvo on 10-24-2024 Anion gap [Moles/Vol] 14 mmol/L 5-15 [facility] Automated lymphocyte count a s percentage of total leukocytesOrdered By: Moses Montalvo on 10-24-2024 Lymphocytes/100 WBC Auto (Unsp spec) 26.4 % - [facility] BUN/creatinine ratioOrdered By: Mosesmanuelito Montalvo on 10-24-2024 Urea nitrogen/Creatinine [Mass ratio] 11.9 mg/mg 10- [facility] Basophil percentageOrdered B y: Moses Montalvo on 10-24-2024 Basophils/100 WBC (Bld) 0.2 % 0-1 [facility] Bilirubin, totalOrdered By: Mosesajith Montalvo on 10-24-2024 Bilirubin [Mass/Vol] 0.28 mg/dL 0.00-1.30 [facility] CBC W/Diff, Automatedon 10-04 Absolute Lymph 3.24 X10 3/uL Normal 0.83-4.51 [facility] Comment on above: Performed By: #### L 501.6710, L100.0100, L2100.0000, L3100.5440, L5500.0410, L3200.1100, L3100.3425, L501.2400, L503.0106, L101.9900, L3430.0100, L501.2300, L3300.1800, L3300.1200, L501.2450, L3100.4810, L3410.2400, L3440.5000, L3000.0375, L500.4050, L3100.1350, L501.5200, L501.3620 ####[facility] [address] [facility] [place], [place], [id number] Absolute Neut 8.3 X10 3/uL High 2.0-7.7 [facility] Comment on above: Performed By: #### L 501.6710, L100.0100, L2100.0000, L3100.5440, L5500.0410, L3200.1100, L3100.3425, L501.2400, L503.0106, L101.9900, L3430.0100, L501.2300, L3300.1800, L3300.1200, L501.2450, L3100.4810, L3410.2400, L3440.5000, L3000.0375, L500.4050, L3100.1350, L501.5200, L501.3620 ####[facility] [address] [place], [address](012) Basophils/100 WBC (Bld) 0.2 % Normal 0-1 [facility] Comment on above: Performed By: #### L 501.6710, L100.0100, L2100.0000, L3100.5440, L5500.0410, L3200.1100, L3100.3425, L501.2400, L503.0106, L101.9900, L3430.0100, L501.2300, L3300.1800, L3300.1200, L501.2450, L3100.4810, L3410.2400, L3440.5000, L3000.0375, L500.4050, L3100.1350, L501.5200, L501.3620 ####[facility] [address] [place], [address] Eosinophils/100 WBC (Bld) 0.1 % Normal 0-5 [facility] Comment on above: Performed By: #### L 501.6710, L100.0100, L2100.0000, L3100.5440, L5500.0410, L3200.1100, L3100.3425, L501.2400, L503.0106, L101.9900, L3430.0100, L501.2300, L3300.1800, L3300.1200, L501.2450, L3100.4810, L3410.2400, L3440.5000, L3000.0375, L500.4050, L3100.1350, L501.5200, L501.3620 ####[facility] [address] [place], [address] Erythrocyte distribution width (RBC) [Ratio] 13.2 % Normal 11.6-14.6 [facility] Comment on above: Performed By: #### L 501.6710, L100.0100, L2100.0000, L3100.5440, L5500.0410, L3200.1100, L3100.3425, L501.2400, L503.0106, L101.9900, L3430.0100, L501.2300, L3300.1800, L3300.1200, L501.2450, L3100.4810, L3410.2400, L3440.5000, L3000.0375, L500.4050, L3100.1350, L501.5200, L501.3620 ####[facility] [address] [place], [address] Hematocrit (Bld) [Volume fraction] 43.7 % Normal 37-47 [facility] Comment on above: Performed By: #### L 501.6710, L100.0100, L2100.0000, L3100.5440, L5500.0410, L3200.1100, L3100.3425, L501.2400, L503.0106, L101.9900, L3430.0100, L501.2300, L3300.1800, L3300.1200, L501.2450, L3100.4810, L3410.2400, L3440.5000, L3000.0375, L500.4050, L3100.1350, L501.5200, L501.3620 ####[facility] [address] [place], [address] Hemoglobin (Bld) [Mass/Vol] 14.5 g/dL Normal 12.0-15.0 [facility] Comment on above: Performed By: #### L 501.6710, L100.0100, L2100.0000, L3100.5440, L5500.0410, L3200.1100, L3100.3425, L501.2400, L503.0106, L101.9900, L3430.0100, L501.2300, L3300.1800, L3300.1200, L501.2450, L3100.4810, L3410.2400, L3440.5000, L3000.0375, L500.4050, L3100.1350, L501.5200, L501.3620 ####[facility] [address] [place], [place], [id number] IG% 0.200 Normal 0.0-0.9 [facility] Comment on above: Result Comment: IG% - Immature Granulocytes (promyelocytes, myelocytes and metamyelocytes) > 1% indicates that a LEFT SHIFT is Present. Performed By: #### L 501.6710, L100.0100, L2100.0000, L3100.5440, L5500.0410, L3200.1100, L3100.3425, L501.2400, L503.0106, L101.9900, L3430.0100, L501.2300, L3300.1800, L3300.1200, L501.2450, L3100.4810, L3410.2400, L3440.5000, L3000.0375, L500.4050, L3100.1350, L501.5200, L501.3620 ####[facility] [address] [facility] [place], [place], [id number] Lymphocytes/100 WBC (Bld) 26.4 % Normal 19-41 [facility] Comment on above: Performed By: #### L 501.6710, L100.0100, L2100.0000, L3100.5440, L5500.0410, L3200.1100, L3100.3425, L501.2400, L503.0106, L101.9900, L3430.0100, L501.2300, L3300.1800, L3300.1200, L501.2450, L3100.4810, L3410.2400, L3440.5000, L3000.0375, L500.4050, L3100.1350, L501.5200, L501.3620 ####[facility] [address] [place], [address] MCH (RBC) [Entitic mass] 33.0 pg High 27.0-32.0 [facility] Comment on above: Performed By: #### L 501.6710, L100.0100, L2100.0000, L3100.5440, L5500.0410, L3200.1100, L3100.3425, L501.2400, L503.0106, L101.9900, L3430.0100, L501.2300, L3300.1800, L3300.1200, L501.2450, L3100.4810, L3410.2400, L3440.5000, L3000.0375, L500.4050, L3100.1350, L501.5200, L501.3620 ####[facility] [address] [place], [address] MCHC (RBC) [Mass/Vol] 33.2 g/dL Normal 32-36 [facility] Comment on above: Performed By: #### L 501.6710, L100.0100, L2100.0000, L3100.5440, L5500.0410, L3200.1100, L3100.3425, L501.2400, L503.0106, L101.9900, L3430.0100, L501.2300, L3300.1800, L3300.1200, L501.2450, L3100.4810, L3410.2400, L3440.5000, L3000.0375, L500.4050, L3100.1350, L501.5200, L501.3620 ####[facility] [address] [place], [address] MCV (RBC) [Entitic vol] 99.5 fL High 81-99 [facility] Comment on above: Performed By: #### L 501.6710, L100.0100, L2100.0000, L3100.5440, L5500.0410, L3200.1100, L3100.3425, L501.2400, L503.0106, L101.9900, L3430.0100, L501.2300, L3300.1800, L3300.1200, L501.2450, L3100.4810, L3410.2400, L3440.5000, L3000.0375, L500.4050, L3100.1350, L501.5200, L501.3620 ####[facility] [address] [place], [address] Monocytes/100 WBC (Bld) 5.1 % Normal 0-10 [facility] Comment on above: Performed By: #### L 501.6710, L100.0100, L2100.0000, L3100.5440, L5500.0410, L3200.1100, L3100.3425, L501.2400, L503.0106, L101.9900, L3430.0100, L501.2300, L3300.1800, L3300.1200, L501.2450, L3100.4810, L3410.2400, L3440.5000, L3000.0375, L500.4050, L3100.1350, L501.5200, L501.3620 ####[facility] [address] [place], [address] Neutrophils/100 WBC (Bld) 68.0 % Normal 47-70 [facility] Comment on above: Performed By: #### L 501.6710, L100.0100, L2100.0000, L3100.5440, L5500.0410, L3200.1100, L3100.3425, L501.2400, L503.0106, L101.9900, L3430.0100, L501.2300, L3300.1800, L3300.1200, L501.2450, L3100.4810, L3410.2400, L3440.5000, L3000.0375, L500.4050, L3100.1350, L501.5200, L501.3620 ####[facility] [address] [place], [place], [phone] Nucleated RBC (Bld) [#/Vol] 0 10*3/uL Normal 0-5 [facility] Comment on above: Performed By: #### L 501.6710, L100.0100, L2100.0000, L3100.5440, L5500.0410, L3200.1100, L3100.3425, L501.2400, L503.0106, L101.9900, L3430.0100, L501.2300, L3300.1800, L3300.1200, L501.2450, L3100.4810, L3410.2400, L3440.5000, L3000.0375, L500.4050, L3100.1350, L501.5200, L501.3620 ####[facility] [address] [place], [place], [phone] Platelet mean volume (Bld) [Entitic vol] 9.9 fL Normal 6.2-12.0 [facility] Comment on above: Performed By: #### L 501.6710, L100.0100, L2100.0000, L3100.5440, L5500.0410, L3200.1100, L3100.3425, L501.2400, L503.0106, L101.9900, L3430.0100, L501.2300, L3300.1800, L3300.1200, L501.2450, L3100.4810, L3410.2400, L3440.5000, L3000.0375, L500.4050, L3100.1350, L501.5200, L501.3620 ####[facility] [address] [place], [place], [id number] Platelets (Bld) [#/Vol] 239 10*3/uL Normal 150-450 [facility] Comment on above: Performed By: #### L 501.6710, L100.0100, L2100.0000, L3100.5440, L5500.0410, L3200.1100, L3100.3425, L501.2400, L503.0106, L101.9900, L3430.0100, L501.2300, L3300.1800, L3300.1200, L501.2450, L3100.4810, L3410.2400, L3440.5000, L3000.0375, L500.4050, L3100.1350, L501.5200, L501.3620 ####[facility] [address] [place], [address] RBC (Bld) [#/Vol] 4.39 10*6/uL Normal 4.2-5.4 [facility] Comment on above: Performed By: #### L 501.6710, L100.0100, L2100.0000, L3100.5440, L5500.0410, L3200.1100, L3100.3425, L501.2400, L503.0106, L101.9900, L3430.0100, L501.2300, L3300.1800, L3300.1200, L501.2450, L3100.4810, L3410.2400, L3440.5000, L3000.0375, L500.4050, L3100.1350, L501.5200, L501.3620 ####[facility] [address] [place], [place], [address] RDW SD 48.8 fl High 35.1-43.9 [facility] Comment on above: Performed By: #### L 501.6710, L100.0100, L2100.0000, L3100.5440, L5500.0410, L3200.1100, L3100.3425, L501.2400, L503.0106, L101.9900, L3430.0100, L501.2300, L3300.1800, L3300.1200, L501.2450, L3100.4810, L3410.2400, L3440.5000, L3000.0375, L500.4050, L3100.1350, L501.5200, L501.3620 ####[facility] [address] [place], [place], [id number] WBC (Bld) [#/Vol] 12.3 10*3/uL High 4.4-11.0 [facility] Comment on above: Performed By: #### L 501.6710, L100.0100, L2100.0000, L3100.5440, L5500.0410, L3200.1100, L3100.3425, L501.2400, L503.0106, L101.9900, L3430.0100, L501.2300, L3300.1800, L3300.1200, L501.2450, L3100.4810, L3410.2400, L3440.5000, L3000.0375, L500.4050, L3100.1350, L501.5200, L501.3620 ####[facility] [address] [place], [place], [id number] CPK Total, Creatine Kinaseon 10-24-2024 CPK TOTAL 187 U/L Normal 24-195 [facility] Comment on above: Performed By: #### L 501.6710, L100.0100, L2100.0000, L3100.5440, L5500.0410, L3200.1100, L3100.3425, L501.2400, L503.0106, L101.9900, L3430.0100, L501.2300, L3300.1800, L3300.1200, L501.2450, L3100.4810, L3410.2400, L3440.5000, L3000.0375, L500.4050, L3100.1350, L501.5200, L501.3620 ####[facility] [address] [place], [place], [id number] CRPon 10-24-2024 C-REACTIVE PROT < 3.00 Normal 0.0-3.0 [facility] Comment on above: Performed By: #### L 501.6710, L100.0100, L2100.0000, L3100.5440, L5500.0410, L3200.1100, L3100.3425, L501.2400, L503.0106, L101.9900, L3430.0100, L501.2300, L3300.1800, L3300.1200, L501.2450, L3100.4810, L3410.2400, L3440.5000, L3000.0375, L500.4050, L3100.1350, L501.5200, L501.3620 ####[facility] [address] [facility] [address] [place], [place], [phone] Carbon dioxide, total [Moles /volume] in Central venous bloodOrdered By: Moses Montalvo on 10-24-2024 CO2 [Moles/Vol] 17.3 mmol/L Low 21.0-32.0 [facility] Chloride assayOrdered By: Ra librado Montalvo on 10-24-2024 Chloride [Moles/Vol] 108 mmol/L 98-108 [facility] Comprehensive Metabolic Prof ilon 10-24-2024 Albumin [Mass/Vol] 4.4 g/dL Normal 3.5-5.0 [facility] Comment on above: Performed By: #### L 501.6710, L100.0100, L2100.0000, L3100.5440, L5500.0410, L3200.1100, L3100.3425, L501.2400, L503.0106, L101.9900, L3430.0100, L501.2300, L3300.1800, L3300.1200, L501.2450, L3100.4810, L3410.2400, L3440.5000, L3000.0375, L500.4050, L3100.1350, L501.5200, L501.3620 ####[facility] [address] [place], [place], [id number] Albumin/Globulin [Mass ratio] 1.5 {ratio} Normal 0.9-2.4 [facility] Comment on above: Performed By: #### L 501.6710, L100.0100, L2100.0000, L3100.5440, L5500.0410, L3200.1100, L3100.3425, L501.2400, L503.0106, L101.9900, L3430.0100, L501.2300, L3300.1800, L3300.1200, L501.2450, L3100.4810, L3410.2400, L3440.5000, L3000.0375, L500.4050, L3100.1350, L501.5200, L501.3620 ####[facility] [address] [place], [address] ALK PHOS 57 U/L Normal 35-104 [facility] Comment on above: Performed By: #### L 501.6710, L100.0100, L2100.0000, L3100.5440, L5500.0410, L3200.1100, L3100.3425, L501.2400, L503.0106, L101.9900, L3430.0100, L501.2300, L3300.1800, L3300.1200, L501.2450, L3100.4810, L3410.2400, L3440.5000, L3000.0375, L500.4050, L3100.1350, L501.5200, L501.3620 ####[facility] [address] [place], [address] ALT [Catalytic activity/Vol] 24 U/L Normal <=34 [facility] Comment on above: Performed By: #### L 501.6710, L100.0100, L2100.0000, L3100.5440, L5500.0410, L3200.1100, L3100.3425, L501.2400, L503.0106, L101.9900, L3430.0100, L501.2300, L3300.1800, L3300.1200, L501.2450, L3100.4810, L3410.2400, L3440.5000, L3000.0375, L500.4050, L3100.1350, L501.5200, L501.3620 ####[facility] [address] [place], [address] AST [Catalytic activity/Vol] 20 U/L Normal <=31 [facility] Comment on above: Performed By: #### L 501.6710, L100.0100, L2100.0000, L3100.5440, L5500.0410, L3200.1100, L3100.3425, L501.2400, L503.0106, L101.9900, L3430.0100, L501.2300, L3300.1800, L3300.1200, L501.2450, L3100.4810, L3410.2400, L3440.5000, L3000.0375, L500.4050, L3100.1350, L501.5200, L501.3620 ####[facility] [address] [place], [place], [id number] Bilirubin [Mass/Vol] 0.28 mg/dL Normal 0.00-1.30 [facility] Comment on above: Performed By: #### L 501.6710, L100.0100, L2100.0000, L3100.5440, L5500.0410, L3200.1100, L3100.3425, L501.2400, L503.0106, L101.9900, L3430.0100, L501.2300, L3300.1800, L3300.1200, L501.2450, L3100.4810, L3410.2400, L3440.5000, L3000.0375, L500.4050, L3100.1350, L501.5200, L501.3620 ####[facility] [address] [place], [address] BUN/CRE 11.9 RATIO Normal 10-20 [facility] Comment on above: Performed By: #### L 501.6710, L100.0100, L2100.0000, L3100.5440, L5500.0410, L3200.1100, L3100.3425, L501.2400, L503.0106, L101.9900, L3430.0100, L501.2300, L3300.1800, L3300.1200, L501.2450, L3100.4810, L3410.2400, L3440.5000, L3000.0375, L500.4050, L3100.1350, L501.5200, L501.3620 ####[facility] [address] [place], [place], [id number] Calcium [Mass/Vol] 9.0 mg/dL Normal 7.6-11.0 [facility] Comment on above: Performed By: #### L 501.6710, L100.0100, L2100.0000, L3100.5440, L5500.0410, L3200.1100, L3100.3425, L501.2400, L503.0106, L101.9900, L3430.0100, L501.2300, L3300.1800, L3300.1200, L501.2450, L3100.4810, L3410.2400, L3440.5000, L3000.0375, L500.4050, L3100.1350, L501.5200, L501.3620 ####[facility] [address] [place], [place], [phone] Chloride [Moles/Vol] 108 mmol/L Normal 98-108 [facility] Comment on above: Performed By: #### L 501.6710, L100.0100, L2100.0000, L3100.5440, L5500.0410, L3200.1100, L3100.3425, L501.2400, L503.0106, L101.9900, L3430.0100, L501.2300, L3300.1800, L3300.1200, L501.2450, L3100.4810, L3410.2400, L3440.5000, L3000.0375, L500.4050, L3100.1350, L501.5200, L501.3620 ####[facility] [address] [place], [place], [id number] CO2 [Moles/Vol] 17.3 mmol/L Low 21.0-32.0 [facility] Comment on above: Performed By: #### L 501.6710, L100.0100, L2100.0000, L3100.5440, L5500.0410, L3200.1100, L3100.3425, L501.2400, L503.0106, L101.9900, L3430.0100, L501.2300, L3300.1800, L3300.1200, L501.2450, L3100.4810, L3410.2400, L3440.5000, L3000.0375, L500.4050, L3100.1350, L501.5200, L501.3620 ####[facility] [address] [place], [address] Creatinine [Mass/Vol] 0.71 mg/dL Normal 0.70-1.20 [facility] Comment on above: Performed By: #### L 501.6710, L100.0100, L2100.0000, L3100.5440, L5500.0410, L3200.1100, L3100.3425, L501.2400, L503.0106, L101.9900, L3430.0100, L501.2300, L3300.1800, L3300.1200, L501.2450, L3100.4810, L3410.2400, L3440.5000, L3000.0375, L500.4050, L3100.1350, L501.5200, L501.3620 ####[facility] [address] [place], [place], [id number] GAP 14 Normal 5-15 [facility] Comment on above: Performed By: #### L 501.6710, L100.0100, L2100.0000, L3100.5440, L5500.0410, L3200.1100, L3100.3425, L501.2400, L503.0106, L101.9900, L3430.0100, L501.2300, L3300.1800, L3300.1200, L501.2450, L3100.4810, L3410.2400, L3440.5000, L3000.0375, L500.4050, L3100.1350, L501.5200, L501.3620 ####[facility] [address] [facility] [place], [place], [id number] GFR/1.73 sq M.predicted among non-blacks MDRD (S/P/Bld) [Vol rate/Area] 114 mL/min/{1.73_m2} Normal >60 [facility] Comment on above: Result Comment: mL/m in/1.73m2 CKD-EPI Creatinine Equation (2020) Performed By: #### L 501.6710, L100.0100, L2100.0000, L3100.5440, L5500.0410, L3200.1100, L3100.3425, L501.2400, L503.0106, L101.9900, L3430.0100, L501.2300, L3300.1800, L3300.1200, L501.2450, L3100.4810, L3410.2400, L3440.5000, L3000.0375, L500.4050, L3100.1350, L501.5200, L501.3620 ####[facility] [address] [facility] [place], [place], [id number] Globulin (S) [Mass/Vol] 2.9 g/dL Normal 2.2-4.2 [facility] Comment on above: Performed By: #### L 501.6710, L100.0100, L2100.0000, L3100.5440, L5500.0410, L3200.1100, L3100.3425, L501.2400, L503.0106, L101.9900, L3430.0100, L501.2300, L3300.1800, L3300.1200, L501.2450, L3100.4810, L3410.2400, L3440.5000, L3000.0375, L500.4050, L3100.1350, L501.5200, L501.3620 ####[facility] [address] [place], [address] Glucose [Mass/Vol] 116 mg/dL High 70-99 [facility] Comment on above: Performed By: #### L 501.6710, L100.0100, L2100.0000, L3100.5440, L5500.0410, L3200.1100, L3100.3425, L501.2400, L503.0106, L101.9900, L3430.0100, L501.2300, L3300.1800, L3300.1200, L501.2450, L3100.4810, L3410.2400, L3440.5000, L3000.0375, L500.4050, L3100.1350, L501.5200, L501.3620 ####[facility] [address] [place], [place], [id number] Potassium [Moles/Vol] 3.0 mmol/L Low 3.3-5.1 [facility] Comment on above: Performed By: #### L 501.6710, L100.0100, L2100.0000, L3100.5440, L5500.0410, L3200.1100, L3100.3425, L501.2400, L503.0106, L101.9900, L3430.0100, L501.2300, L3300.1800, L3300.1200, L501.2450, L3100.4810, L3410.2400, L3440.5000, L3000.0375, L500.4050, L3100.1350, L501.5200, L501.3620 ####[facility] [address] [place], [place], [phone]) Sodium [Moles/Vol] 140 mmol/L Normal 133-145 [facility] Comment on above: Performed By: #### L 501.6710, L100.0100, L2100.0000, L3100.5440, L5500.0410, L3200.1100, L3100.3425, L501.2400, L503.0106, L101.9900, L3430.0100, L501.2300, L3300.1800, L3300.1200, L501.2450, L3100.4810, L3410.2400, L3440.5000, L3000.0375, L500.4050, L3100.1350, L501.5200, L501.3620 ####[facility] [address] [place], [place], [id number] T PROT 7.3 g/dL Normal 5.9-8.4 [facility] Comment on above: Performed By: #### L 501.6710, L100.0100, L2100.0000, L3100.5440, L5500.0410, L3200.1100, L3100.3425, L501.2400, L503.0106, L101.9900, L3430.0100, L501.2300, L3300.1800, L3300.1200, L501.2450, L3100.4810, L3410.2400, L3440.5000, L3000.0375, L500.4050, L3100.1350, L501.5200, L501.3620 ####[facility] [address] [place], [place], [id number] Urea nitrogen [Mass/Vol] 9 mg/dL Normal 4-19 [facility] Comment on above: Performed By: #### L 501.6710, L100.0100, L2100.0000, L3100.5440, L5500.0410, L3200.1100, L3100.3425, L501.2400, L503.0106, L101.9900, L3430.0100, L501.2300, L3300.1800, L3300.1200, L501.2450, L3100.4810, L3410.2400, L3440.5000, L3000.0375, L500.4050, L3100.1350, L501.5200, L501.3620 ####[facility] [address] [place], [address] Culture, Throaton 10-24-2024 CUT Normal throat lois isolated. No beta-hemolytic streptococcus isolated. Normal [facility] Comment on above: Performed By: #### M 100.1000 #### [facility] [address] [place], [address] Eosinophil percentageOrdered By: Moses Friend on 10-24-2024 Eosinophils/100 WBC (Bld) 0.1 % 0-5 [facility] Erythrocyte Sed Rateon 10-24 SED RATE 11 mm/hr Normal 0-30 [facility] Comment on above: Performed By: #### L 501.6710, L100.0100, L2100.0000, L3100.5440, L5500.0410, L3200.1100, L3100.3425, L501.2400, L503.0106, L101.9900, L3430.0100, L501.2300, L3300.1800, L3300.1200, L501.2450, L3100.4810, L3410.2400, L3440.5000, L3000.0375, L500.4050, L3100.1350, L501.5200, L501.3620 ####[facility] [address] [place], [place], [phone] Erythrocyte distribution wid th ratioOrdered By: Moses Friend on 10-24-2024 Erythrocyte distribution width (RBC) [Ratio] 13.2 % 11.6-14.6 [facility] Erythrocyte distribution wid th standard deviationOrdered By: Moses Friend on 10-24-2024 Erythrocyte distribution width (RBC) [Ratio] 48.8 fl High 35.1-43.9 [facility] Erythrocyte sedimentation ra teOrdered By: Moses Friend on 10-24-2024 ESR (Bld) [Velocity] 11 mm/h 0-30 [facility] Gastroenterology Visit Repor ton 10-24-2024 Gastroenterology Visit Report [facility] [address] [place] [address] OFFICE VISIT Date of Service: 10/24/24 MR#: [id number] Acct: [id number] Name: POLINA GIRON Rep #: [id number] : 1990 Provider: Moses Montalvo DO Age/Sex: 34/F [place] [facility] Status: Signed Intake Vital Signs 12/21/23 10:27 10/23/24 12:56 Height 5 ft 6 in 5 ft 6 in Intake Visit Reasons: Nausea Allergies codeine Adverse Reaction (Verified 10/24/24 10:54) Upset Stomach hydrocodone bitartrate (From Vicodin) Adverse Reaction (Verified 10/24/24 10:54) Upset Stomach PFSH Medical History (Updated 10/24/24 @ 11:[address] Moses Montalvo DO) IBS (irritable bowel syndrome) Bipolar disorder Low back pain Depression Anxiety Social History (Updated 10/24/24 @ 10:56 by Meme Suazo) housing: apartment current occupational status: disabled Smoking Status: Current every day smoker tobacco type: e-cigarettes alcohol intake: never substance use type: marijuana what type of physical activity do you participate in: walking HPI HPI Details: POLINA GIRON, is a 34 F who presents to the office today for initial consult. *BGI established 5.22.25 pt reports long history of IBS; daily is experiencing nausea, vomiting, and diarrhea. Pt reports difficulty swallowing due to increased mucous. Pt reports daily marijuana use for back pain. Pt reports that she has never had a colonoscopy or EGD, was scheduled for a colonoscopy a few years ago but states that pills she has to take for the prep made her sick. ROS Const Constitutional: Positive for fatigue, headache(s) and weight change (weight gain); No fever(s) ENT ENT: Positive for headache(s) and difficulty swallowing Gastro GI: Positive for abdominal pain, bloating, change in bowel habits, constipation, diarrhea, heartburn, difficulty swallowing, excessive flatus, nausea/dyspepsia and vomiting; No belching, change in stool character, coffee ground emesis, cramping, feeling full early, incontinent of stools, Vomiting blood/hematemesis, Blood in stool, loose stools, Black,tarry stools, pain with swallowing or other Musc Musculoskeletal: Positive for back pain, muscle cramps, muscle weakness, numbness, stiffness, tingling, Arthritis, sciatica, restless legs and leg pain at night; No joint pain Skin Skin: No yellowing of the eye or itchy eyes Neuro Neurology: Positive for headache(s), numbness, tingling and restless legs Psych Psychiatric: Positive for anxiety, Positive for depression, Positive for Behavioral Problems, Positive for Compulsive Behavior, Positive for hyperactivity and Positive for obsessions/compulsions Endo Endocrine: Positive for fatigue and weight change (weight gain) Aller/Imm Allergy/Immunologic: No itchy eyes Jonathan/Lymp Hematologic/Lymphatic: Positive for easy bruising; No easy bleeding Exam Const General: cooperative and no acute distress Nutritional Appearance: obese Orientation: oriented x3 HENMT Ears: hearing grossly normal bilaterally Mouth: oral mucosae normal Eyes Sclera: sclerae normal Resp Effort Inspection: normal respiratory effort Auscultation: Bilateral: Clear to Auscultation GI Inspection: normal to inspection Auscultation: normal bowel sounds Palpation: soft Rectal Exam: deferred Assessment and Plan Assessment and Plan (1) Abdominal pain: Status: Acute (2) Diarrhea: Status: Acute Plan: 34-year-old with intermittent abdominal pain and alternating constipation and diarrhea. She has a previous diagnosis of IBS with diarrhea on Xifaxan 550 mg p.o. 3 times a day by her primary. She also admits to THC usage for previous diagnosis of anxiety and depression. She is also diagnosed with ADD and is on Adderall and has chronic pain. She takes gabapentin 800 mg p.o. 3 times daily for chronic pain in lamotrigine 200 mg p.o. twice daily. The differential diagnosis for symptoms do include IBS with diarrhea along with marijuana hyperemesis, pancreatitis, celiac disease, inflammatory bowel disease. We will do biochemical workup and we will also order gallbladder ultrasound and HIDA scan with CCK. Orders: Orders Celiac Disease Profile Today R10.9 - Unspecified abdominal pain, R19.7 - Diarrhea, unspecified CRP Today R10.9 - Unspecified abdominal pain, R19.7 - Diarrhea, unspecified Erythrocyte Sed Rate Today R10.9 - Unspecified abdominal pain, R19.7 - Diarrhea, unspecified Hepatitis Panel Acute Today R10.9 - Unspecified abdominal pain, R19.7 - Diarrhea, unspecified Immunoglobulins G/A/M/E Today R10.9 - Unspecified abdominal pain, R19.7 - Diarrhea, unspecified ANCA Today R10.9 - Unspecified abdominal pain, R19.7 - Diarrhea, unspecified Lipase Today R10.9 - Unspecified abdominal pain, R19.7 - Diarrhea, unspecified Amylase Today R10.9 - Unspecif (more content not included)... Normal [facility] Glomerular filtration rate ( GFR) estimation/1.73 sq m using serum, plasma, or whole bOrdered By: Moses Montalvo on 10-24-2024 GFR/1.73 sq M.predicted among non-blacks MDRD (S/P/Bld) [Vol rate/Area] 114 mL/min/{1.73_m2} >60 [facility] Comment on above: mL/min/1.73m2 CKD-EP I Creatinine Equation (2020) Hematocrit Auto (Bld) [Volum e fraction]Ordered By: Moses Montalvo on 10-24-2024 Hematocrit (Bld) [Volume fraction] 43.7 % 37-47 [facility] Hemoglobin measurementOrdere d By: Moses Montalvo on 10-24-2024 Hemoglobin (Bld) [Mass/Vol] 14.5 g/dL 12.0-15.0 [facility] Immature granulocytes/100 WB C Auto (Bld)Ordered By: Moses Montalvo on 10-24-2024 Immature granulocytes/100 WBC (Bld) 0.200 % 0.0-0.9 [facility] Comment on above: IG% - Immature Granu locytes (promyelocytes, myelocytes and metamyelocytes) > 1% indicates that a LEFT SHIFT is Present. Laboratory - Chemistry and C hemistry - challengeOrdered By: Moses Montalvo on 10-24-2024 AST [Catalytic activity/Vol] 20 U/L <32 [facility] Lipaseon 10-24-2024 Lipase [Catalytic activity/Vol] 28 U/L Normal 13-75 [facility] Comment on above: Result Comment: Kait guy note: LIPASE revised reference range effective 22. New Lipase methodology. Expected to produce lower values than the previous assay method. NEW Reference Range: 13 - 75 U/L Performed By: #### L 501.6710, L100.0100, L2100.0000, L3100.5440, L5500.0410, L3200.1100, L3100.3425, L501.2400, L503.0106, L101.9900, L3430.0100, L501.2300, L3300.1800, L3300.1200, L501.2450, L3100.4810, L3410.2400, L3440.5000, L3000.0375, L500.4050, L3100.1350, L501.5200, L501.3620 ####[facility] [address] [place], [address] Lipase measurementOrdered By : Moses Montalvo on 10-24-2024 Lipase [Catalytic activity/Vol] 28 U/L 13-75 [facility] Comment on above: Please note:LIPASE r evised reference range effective 22. New Lipase methodology. Expected to produce lower values than the previous assay method. NEW Reference Range: 13 - 75 U/L MCV (mean corpuscular volume ) determinationOrdered By: Moses Montalvo on 10-24-2024 MCV (RBC) [Entitic vol] 99.5 fL High 81-99 [facility] Magnesiumon 10-24-2024 Magnesium [Mass/Vol] 2.0 mg/dL Normal 1.5-2.2 [facility] Comment on above: Performed By: #### L 501.6710, L100.0100, L2100.0000, L3100.5440, L5500.0410, L3200.1100, L3100.3425, L501.2400, L503.0106, L101.9900, L3430.0100, L501.2300, L3300.1800, L3300.1200, L501.2450, L3100.4810, L3410.2400, L3440.5000, L3000.0375, L500.4050, L3100.1350, L501.5200, L501.3620 ####[facility] [address] [place], [address] Magnesium measurement (mass/ volume)Ordered By: Moses Montalvo on 10-24-2024 Magnesium (Unsp spec) [Mass/Vol] 2.0 mg/dL 1.5-2.2 [facility] Mean corpuscular hemoglobin (MCH) determinationOrdered By: Moses Montalvo on 10-24-2024 MCH (RBC) [Entitic mass] 33.0 pg High 27.0-32.0 [facility] Mean corpuscular hemoglobin concentration (MCHC) determinationOrdered By: Mosesajith Montalvo on 10-24-2024 MCHC (RBC) [Mass/Vol] 33.2 g/dL 32-36 [facility] Mean platelet volume determi nationOrdered By: Mosesajith Montalvo on 10-24-2024 Platelet mean volume (Bld) [Entitic vol] 9.9 fL 6.2-12.0 [facility] Monocyte percentageOrdered B y: Mosesmanuelito Montalvo on 10-24-2024 Monocytes/100 WBC (Bld) 5.1 % 0-10 [facility] Neutrophil percentageOrdered By: [facility] Katia on 10-24-2024 Neutrophils/100 WBC (Bld) 68.0 % 47-70 [facility] Nucleated red blood cell per centageOrdered By: Mosesmanuelito Montalvo on 10-24-2024 Nucleated RBC/100 WBC (Bld) [Ratio] 0 % 0-5 [facility] Phosphoruson 10-24-2024 Phosphate [Mass/Vol] 2.8 mg/dL Normal 2.7-4.5 [facility] Comment on above: Performed By: #### L 501.6710, L100.0100, L2100.0000, L3100.5440, L5500.0410, L3200.1100, L3100.3425, L501.2400, L503.0106, L101.9900, L3430.0100, L501.2300, L3300.1800, L3300.1200, L501.2450, L3100.4810, L3410.2400, L3440.5000, L3000.0375, L500.4050, L3100.1350, L501.5200, L501.3620 ####[facility] [address] [place], [address] Platelet countOrdered By: Ra librado Montalvo on 10-24-2024 Platelets (Bld) [#/Vol] 239 10*3/uL 150-450 [facility] Potassium measurement (mass/ volume)Ordered By: Moses Montalvo on 10-24-2024 Potassium (Unsp spec) [Mass/Vol] 3.0 mmol/L Low 3.3-5.1 [facility] RBC Auto (Bld) [#/Vol]Ordere d By: Moses Montalvo on 10-24-2024 RBC (Bld) [#/Vol] 4.39 10*6/uL 4.2-5.4 [facility] Serum Scl-70 antibody assay (units/volume)Ordered By: Moses Montalvo on 10-24-2024 SCL-70 extractable nuclear Ab Qn (S) TNP [facility] Comment on above: Test not performed Serum creatinine measurement (mass/volume)Ordered By: Moses Montalvo on 10-24-2024 Creatinine [Mass/Vol] 0.71 mg/dL 0.70-1.20 [facility] Serum globulin measurementOr dered By: Moses Montalvo on 10-24-2024 Globulin (S) [Mass/Vol] 2.9 g/dL 2.2-4.2 [facility] Serum glucose measurement (m ass/volume)Ordered By: Moses Montalvo on 10-24-2024 Glucose [Mass/Vol] 116 mg/dL High 70-99 [facility] Serum or plasma C reactive p rotein measurement (mass/volume)Ordered By: Moses Montalvo on 10-24-2024 CRP [Mass/Vol] mg/L 0.0-3.0 [facility] Serum or plasma alanine wells otransferase (ALT) measurementOrdered By: Moses Montalvo on 10-24-2024 ALT [Catalytic activity/Vol] 24 U/L <35 [facility] Serum or plasma albumin aparna urement (mass/volume)Ordered By: Moses Montalvo on 10-24-2024 Albumin [Mass/Vol] 4.4 g/dL 3.5-5.0 [facility] Serum or plasma albumin/glob ulin mass ratioOrdered By: Moses Montalvo on 10-24-2024 Albumin/Globulin [Mass ratio] 1.5 {ratio} 0.9-2.4 [facility] Serum or plasma alkaline trell sphatase measurementOrdered By: Moses Montalvo on 10-24-2024 ALP [Catalytic activity/Vol] 57 U/L 35-104 [facility] Serum or plasma amylase aparna urement (enzymatic activity/volume)Ordered By: Moses Montalvo on 10-24-2024 Amylase [Catalytic activity/Vol] 52 U/L 28-100 [facility] Serum or plasma calcium aparna urement (mass/volume)Ordered By: Moses Montalvo on 10-24-2024 Calcium [Mass/Vol] 9.0 mg/dL 7.6-11.0 [facility] Serum or plasma creatine kin ase activityOrdered By: Moses Montalvo on 10-24-2024 CK [Catalytic activity/Vol] 187 U/L 24-195 [facility] Serum or plasma urea nitroge n measurement (mass/volume)Ordered By: Moses Montalvo on 10-24-2024 Urea nitrogen [Mass/Vol] 9 mg/dL 4-19 [facility] Sodium levelOrdered By: Sophy Vega on 10-24-2024 Sodium [Moles/Vol] 140 mmol/L 133-145 [facility] Total proteinOrdered By: Robby Montalvo on 10-24-2024 Protein [Mass/Vol] 7.3 g/dL 5.9-8.4 [facility] Vitamin B12on 10-24-2024 Cobalamin (Vitamin B12) [Mass/Vol] 627 pg/mL Normal 180-914 [facility] Comment on above: Performed By: #### L 501.6710, L100.0100, L2100.0000, L3100.5440, L5500.0410, L3200.1100, L3100.3425, L501.2400, L503.0106, L101.9900, L3430.0100, L501.2300, L3300.1800, L3300.1200, L501.2450, L3100.4810, L3410.2400, L3440.5000, L3000.0375, L500.4050, L3100.1350, L501.5200, L501.3620 ####[facility] [address] [place], [address] Vitamin B12 ser/plasOrdered By: Moses Friend on 10-24-2024 Cobalamin (Vitamin B12) [Mass/Vol] 627 pg/mL 180-914 [facility] White blood cell (WBC) count Ordered By: Moses Friend on 10-24-2024 WBC (Bld) [#/Vol] 12.3 10*3/uL High 4.4-11.0 [facility] Bilirubin Test strip Ql (U)O rdered By: Humphrey Andrew on 10-23-2024 Bilirubin Ql (U) Negative Negative [facility] Emergency Department Summary on 10-23-2024 Emergency Department Summary [facility] Medical Records Department [address] [place] [address] Emergency Department Summary 10/23/24 MR#: [id number] Acct: [id number] Name: POLINA GIRON Rep #: [id number] : 1990 34 From: Humphrey Peres PCP: Dr. Nataliya Gomez MD Status:DEP ER Location: ED HPI HPI - Female History of Present Illness Chief Complaint: Female C/O Informant: patient Narrative Narrative: 3 weeks sore throat with mucus. Saw Dr. Villarreal with symptom started throat culture returned haemophilus influenza I was on Augmentin for 10 days still has symptoms. No fevers. Pain with swallowing. In addition burning vaginal region 2 days no discharge no dysuria. Sexually active single partner uses protection. Denies history of STDs. 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 Prior similar symptoms: Yes PFSH PFSH Medical History Bipolar disorder Low back pain Depression Anxiety Home Medications ???Medication ???Instructions ???Recorded ???Last Taken ???Type aripiprazole 30 mg tablet (Abilify) 15 mg PO QHS 05/30/16 Unknown H istory sertraline 100 mg tablet 200 mg PO QHS 05/30/16 Unknown His tory gabapentin 600 mg tablet 600 mg PO BID 07/16/19 Unknown His tory prednisone 20 mg tablet 60 mg (3 x 20 mg) PO DAILY #15 tab s 07/16/19 Unknown Rx trazodone 150 mg tablet 150 mg PO QHS 07/16/19 Unknown His tory lamotrigine 150 mg tablet 150 mg PO BID 05/22/20 Unknown His tory medroxyprogesterone 150 mg/mL 150 mg IM .[id number] 05/22/20 Unkno wn History intramuscular syringe multivitamin with minerals 1 ea PO DAILY 05/22/20 Unknown His tory ondansetron 4 mg disintegrating 4 mg PO Q8H PRN PRN Nausea #10 tab s 05/22/20 Unknown Rx tablet quetiapine 25 mg tablet 25 mg PO QHS 05/22/20 Unknown Hist ory prednisone 20 mg tablet 60 mg (3 x 20 mg) PO DAILY #12 Unknown Rx TABLETS Allergy/AdvReac Type Severity Reaction Status Date / Time codeine AdvReac Upset Verified 05/22/20 22:13 Stomach hydrocodone bitartrate (From AdvReac Upset Verified 05/22/20 22:13 Vicodin) Stomach Social History housing: apartment current occupational status: disabled Smoking Status: Current every day smoker tobacco type: e-cigarettes ROS ROS ED Constitutional Constitutional ED: Denies fever(s) ENT ENT ED: Reports sore throat Cardiovascular Cardiovascular: Denies chest pain Respiratory/Chest Respiratory/Chest: Denies cough Gastrointestinal Gastrointestinal: Denies diarrhea or vomiting Genitourinary Genitourinary ED: Reports other Details: Vaginal burning ; Denies dysuria, hematuria or urinary frequency Musculoskeletal Musculoskeletal: Denies none Integumentary Denies rash or wounds Neurologic Neurologic: Denies weakness EXAM Physical Exam Const Vital Signs: 10/23/24 12:56 10/23/24 12:58 10/23/24 13:54 Temperature 97.9 F 97.9 F Temperature Source Oral Temporal Pulse Rate 100 100 Respiratory Rate 16 16 Respiratory Effort Normal Non-Labored Respiratory Depth Normal Respiratory Pattern Normal Blood Pressure 136/88 H 136/88 H Blood Pressure Mean 104 104 Pulse Ox 96 96 Oxygen Delivery Method Room Air Room Air Room Air 10/23/24 14:55 Temperature Temperature Source Pulse Rate 89 Respiratory Rate 17 Respiratory Effort Respiratory Depth Respiratory Pattern Blood Pressure Blood Pressure Mean Pulse Ox 99 Oxygen Delivery Method Positive well nourished and well developed General Appearance ED: well developed and NAD HEENT Reports moist mucous membranes HEENT Narrative: Minimal posterior pharyngeal erythema 1+ symmetric tonsils bilaterally. Uvula midline. No trismus. No ulcers noted. 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 There are some skin redness or groin area nontender. Speculum examination mild discharge in the vault, cervix bluish coloration. No ulcerations noted. No bleeding noted. Extremity normal to inspection General Extremety ED: Negative for edema or tenderness General Extremity: Negative for edema Neuro oriented x3 and no sensory deficits noted Sensorium / (more content not included)... Normal [facility] Ketones Test strip Ql (U)Ord ered By: Humphrey Andrew on 10-23-2024 Ketones Ql (U) Negative Negative [facility] M100.677on 10-23-2024 M100.677 Negative Normal [facility] Comment on above: Performed By: #### L 400.7600, M100.0500, M100.677, L400.0001 #### [facility] [address] [place], [address] M8200.2203on 10-23-2024 M8200.2203 REDRAW. PREVIOUS SPE CIMEN REJECTED DUE TO QNS NEED 10 ML. 05/21/25 1436 Love Palumbo. Chlamydia Trachomatis PCR NEGATIVE for Chlamydia trachomatis N. gonorrhoeae PCR Negative for N. gonorrhoeae Normal [facility] Comment on above: Performed By: #### M 8200.2203 #### [facility] [address] [place], [place], [id number] Microscopic analysis of urin e for red blood cells (RBC)Ordered By: Humphrey Andrew on 10-23-2024 Microscopic analysis of urine for red blood cells (RBC) 0-5 SEEN /hpf 0-5 [facility] Mucus LM Ql (Urine sed)Order ed By: Humphrey Andrew on 10-23-2024 Mucus Ql (Urine sed) 2+ /hpf [facility] Nitrite Test strip Ql (U)Ord ered By: Humphrey Andrew on 10-23-2024 Nitrite Ql (U) Negative Negative [facility] ,Urineon 10-23-2024 Beta HCG ( test) Ql (U) Negative Normal [facility] Comment on above: Result Comment: Very dilute urine specimens, as indicated by a low specific gravity, may not contain telecommunications sales representative levels of hCG. If is still suspected, a first morning urine specimen should be collected 48 hours later and tested. Performed By: #### L 400.7600, M100.0500, M100.677, L400.0001 #### [facility] [address] [place], [place], [id number] Protein Test strip Ql (U)Ord ered By: Humphrey Andrew on 10-23-2024 Protein Ql (U) 30 mg/dl High Negative [facility] Squamous epithelial cells de tection in urine sediment by light microscopyOrdered By: Humphrey Andrew on 10-23-2024 Epithelial cells.squamous LM Ql (Urine sed) 0-5 SEEN /hpf 5-10 [facility] Streptococcus pyogenes rRNA detection in throat by DNA probeOrdered By: Humphrey Andrew on 10-23-2024 S. pyogenes rRNA Probe Ql (Throat) [facility] Throat specimen bacteria yolanda ntification by cultureOrdered By: Humphrey Andrew on 10-23-2024 Bacteria identified Cx Nom (Throat) streptococcus isolated. [facility] Trichomonas vaginalis detect ion by wet preparationOrdered By: Humphrey Andrew on 10-23-2024 T. vaginalis Wet prep Ql (Unsp spec) [facility] Urinalysis, Completeon 10-23 Mucus Ql (Urine sed) 2+ /hpf Normal [facility] Comment on above: Order Comment: CLEAN CATCH Performed By: #### L 400.7600, M100.0500, M100.677, L400.0001 #### [facility] [address] [place], [address] URIC CRYSTALS 1+ /hpf Normal [facility] Comment on above: Order Comment: CLEAN CATCH Performed By: #### L 400.7600, M100.0500, M100.677, L400.0001 #### [facility] [address] [place], [address] EPI,SQUAMOUS 0-5 SEEN Normal 5-10 [facility] Comment on above: Order Comment: CLEAN CATCH Performed By: #### L 400.7600, M100.0500, M100.677, L400.0001 #### [facility] [address] [place], [address] RBC 0-5 SEEN Normal 0-5 [facility] Comment on above: Order Comment: CLEAN CATCH Performed By: #### L 400.7600, M100.0500, M100.677, L400.0001 #### [facility] [address] [place], [address] WBC 0-5 SEEN Normal 0-5 [facility] Comment on above: Order Comment: CLEAN CATCH Performed By: #### L 400.7600, M100.0500, M100.677, L400.0001 #### [facility] [address] [place], [address] BACTERIA 0 SEEN Normal None Seen [facility] Comment on above: Order Comment: CLEAN CATCH Performed By: #### L 400.7600, M100.0500, M100.677, L400.0001 #### [facility] [place], [address] Urine clarityOrdered By: Jono Andrew on 10-23-2024 Clarity (U) Cloudy Clear [facility] Urine color determinationOrd ered By: Humphrey Andrew on 10-23-2024 Color (U) Yellow Yellow [facility] Urine glucose detectionOrder ed By: Humphrey Andrew on 10-23-2024 Glucose Ql (U) Normal mg/dl Normal [facility] Urine leukocyte esterase det ection by dipstickOrdered By: Humphrey Andrew on 10-23-2024 Leukocyte esterase Test strip Ql (U) Negative Negative [facility] Urine pHOrdered By: Humphrey Andrew on 10-23-2024 pH (U) 5.0 [pH] 5.0 - 8.0 [facility] Urine testOrdered By: Humphrey Andrew on 10-23-2024 HCG ( test) Ql (U) Negative [facility] Comment on above: Very dilute urine sp ecimens, as indicated by a low specificgravity, may not contain telecommunications sales representative levels of hCG. If is still suspected, a first morning urinespecimen should be collected 48 hours later and tested. Urine sediment bacteria coun t by microscopy (number/high power field)Ordered By: Humphrey Andrew on 10-23-2024 Bacteria LM.HPF (Urine sed) [#/Area] 0 /[HPF] None Seen [facility] Urine sediment uric acid cry stal count by microscopy (number/high power field)Ordered By: Humphrey Andrew on 10-23-2024 Urate crystals LM.HPF (Urine sed) [#/Area] 1 /[HPF] [facility] Urine specific gravity measu rementOrdered By: Humphrey Andrew on 10-23-2024 Specific gravity (U) [Rel density] 1.020 1.002-1.030 [facility] Urine urobilinogen measureme ntOrdered By: Humphrey Andrew on 10-23-2024 Urobilinogen Ql (U) Normal mg/dl Normal [facility] Wet Prep Trichamonason 10-23 WP Motile Trichomonas NONE SEEN WBC N Normal [facility] Comment on above: Performed By: #### L 400.7600, M100.0500, M100.677, L400.0001 #### [facility] [address] [place], [address] White blood cell countOrdere d By: Humphrey Lorrie on 10-23-2024 White blood cell count 0-5 SEEN /hpf 0-5 [facility] 36on 10-21-2024 36 Med request/call rou mar to Dr Kwok and [facility] [place] sent [facility] Progress Noteon 10-21-2024 Progress Note Ocella - no aura [facility] 36on 10-18-2024 36 Patient states the Nunu salazar is not covered and wants to know if she get get another medication prescribed. She states she wants to continue not having periods and doesn't want it to cause weight gain. Please call and advise. Thank you. [facility] 36on 10-16-2024 36 Prior Auth Slynd ini tiated through Covermymeds. Powell: [id number] PA denied: [facility] 36 Name of caller: Fadumo lee Contact phone number: [phone] Relationship to Patient: patient Provider: Kerri Practice: [facility] Chief Complaint/Reason for Call: Pt calling because the Drospirenone (Slynd) 4 MG tablet is not covered by her insurance and is asking if there is some other BC that would be covered. Please advise Best time of day caller can be reached: any Patient advised that office/PCP has 24-48 business hours to return their call: Yes [facility] Office Visiton 10-16-2024 Follow-up visit [id number] Nikolai Giron 1990 F Date Provider Department Center 10/16/2024 [id number]-VEKEROIIYNVALERI KWOK [facility] Family History Problem Relation Age of Onset ADD / ADHD Mother Anxiety disorder Mother Depression Mother Migraines Mother Family Status - Relation Status Age at Mother Level of Service:09525 MS OFFICE/OUTPATIENT ESTABLISHED LOW MDM 20 MIN Reason for Visit and Comments: Contraception [60] - Discuss alternative BC Previously on depo, last injection in August Patient noticing weight gain No periods with depo, Denies pelvic pain Normal [facility] Progress Noteon 10-16-2024 Progress Note Chief Complaint Patient presents with Contraception Discuss alternative BC Previously on depo, last injection in August Patient noticing weight gain No periods with depo, Denies pelvic pain HPI Pt here for follow up On depo Gained weight ROS: Constitutional - denies fevers or chills Resp - denies CP or SOB CV - denies CP GI - denies nausea, vomiting - denies frequency and dysuria Medical History[1] Surgical History[2] Allergies[3] @MEDCMED@ BP 126/84 Ht 1.676 m (5' 6) Wt 113 kg (249 lb) LMP (LMP Unknown) BMI 40.19 kg/m? PE: Well developed, well nourished Normocephalic, atraumatic CV - normal rate Resp - normal effort Abd - soft, ND MS - no edema Neuro - Pt A&Ox3, NAD Skin - warn and dry Psych - normal affect and behavior Polina was seen today for contraception. Diagnoses and all orders for this visit: Weight gain (Primary) Encounter for initial prescription of contraceptive pills Other orders - Drospirenone (Slynd) 4 MG tablet; Take 4 mg by mouth daily. See back in 3 months Slynd Big concern is weight gain Follow up in about 3 months (around 01/16/2025). [1] Past Medical History: Diagnosis Date ADHD (attention deficit hyperactivity disorder) Anxiety 2008 Back pain Bipolar 2 disorder (CMS/HCC) ([facility]) Cluster headache Depression 2004 Headache 2021 Headache, tension-type 2021 Insomnia 2004 Migraine 2021 Sleep apnea 2006 [2] Past Surgical History: Procedure Laterality Date ANTERIOR CRUCIATE LIGAMENT REPAIR APPENDECTOMY APPENDECTOMY SECTION (HISTORICAL) [3] Allergies Allergen Reactions Codeine Nausea And Vomiting Other reaction(s): GI Upset Hydrocodone-Acetaminophen Nausea And Vomiting Other reaction(s): GI Upset Ibuprofen Other reaction(s): GI Upset Normal [facility] Culture, Throaton 10-05-2024 CUT Ampicillin can be us ed for Beta-Lactamase negative isolates. Bacteria Throat Cult Trimeth/Sulfa, Chloramphenicol, Cefotaxime, Ciprofloxacin, Amoxicillin/Clavulanic Acid, and Oral 2nd/3rd Generation Cephalosporins are effective against both Beta-Lactamase positive and Beta-Lactamase negative isolates. Haemophilus influenzae Amount Growth Rare Beta Lactamase-Reportable Negative Normal [facility] Comment on above: Performed By: #### M 100.1000 #### [facility] [address] [place], [address] Throat specimen bacteria yolanda ntification by cultureOrdered By: Ar Villarreal on 10-03-2024 Bacteria identified Cx Nom (Throat) Haemophilus influenzae Abnormal [facility] 36on 09-23-2024 36 Noted. 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 B: Pt has gained 40 lbs over the past year. A: Pt thinks this is due to the Depo Provera shot. She would like an appt at the [facility] some time in October and around noon. R: Pt states she just received message from office and they scheduled the visit for her. Asked pt to call back if further assistance is needed. [facility] [address] Kwok's Tanesha WADE [facility] 36 Name of caller: Fadumo lee Contact phone number: [phone] Relationship to Patient: patient Provider: Dr. Kwok Practice: [facility] Chief Complaint/Reason for Call: Polina states that the Depo injections are causing her to gain a lot of weight and she would like to know if she could stop the injections and use a different contraceptive. Please advise. Best time of day caller can be reached: Any Patient advised that office/PCP has 24-48 business hours to return their call: Yes [facility] 36on 09-05-2024 36 Patient has been contacted [place] [address] Please call pt to se t up an appt [facility] 36on 09-04-2024 36 Noted [place] [address] patient has been not ified of providers message She states she will try one more time and if it happens again she will stop the botox injections [place] [address] We will cancel the B otox per her request [place] [address] Spoke with patient s he stated the symptoms started 1 week after her botox injections. She also has scabs on her head. [facility] 36 Lm for patient to ca ll the office back, please relay providers message. [place] [address] Those symptoms she i s having are NOT from the Botox. She needs to contact her PCP [place] [address] Having reaction from Botox, flu like symptoms for 3-4 days on head. States she called in and spoke with nurse this AM, was calling back in during office hours to reach someone in office. RN called [facility] neuro backline for further assistance. Office staff advised encounter has been routed to [facility] and she will reach out after reviewed. Patient made aware. States it is not an emergency but just wanted to let her know. No further needs at this time. Patient can be reached at [phone]. [place] [address] S: The patient is ca lling the CAC about Botox injections B: She received these for headaches about 2 weeks ago A: She is complaining of flu like symptoms for the last 3-4 days as well as some scabs on the top of her head. She states there are 2-3 scabs on the top of the head and they are not near the injection sites. Flu like symptoms include fatigue, body aches and much sleeping. She is not vomiting nor does she have a fever. These started a week post and have been present for 3-4 weeks. She has had this with the previous injections. She admits there are no emergent symptoms; no facial swelling, mouth swelling or lip swelling. She denies difficulty breathing or wheezing. R: She is notifying the office that she does not want the Botox anymore - she admits that it does help her headaches; they are 85% better with the injections but she does not like these side effects. Reviewed office hours with her. Reason for Disposition ? Nursing judgment Protocols used: Information Only Call - No [id number] [facility] Progress Noteon 08-22-2024 Progress Note Depo Provera given i n Right Dorsogluteal . Patient tolerated injection well and had no concerns. Patient Supplied [facility]: [id number] LOT:[id number] EXP: 07/06/2025 [facility] Lumbar Spine 2 or 3 Viewson 08-19-2024 Lumbar Spine 2 or 3 Views [facility] [address] [place], [place] [address] Lumbar Spine 2 or 3 Views MR#: [id number] Acct: [id number] Name: POLINA GIRON Rep #: [id number] : 1990 F 34 From: Gonzalo Soto PCP: Dr. Nataliya Gomez MD Status: REG CLI Study: Lumbar Spine 2 or 3 Views Date of Exam: Exam# [id number] Ordering Dr: Nataliya Gomez MD PROCEDURE: LUMBAR SPINE 2 OR 3 VIEWS 08/19/2024 REASON FOR EXAM: BACK PAIN WITH LUMP TECHNIQUE: 3 view of the lumbar spine COMPARISON: None FINDINGS: Mild levoscoliosis centered at L4. No acute findings. There is degenerative disc disease most notable at L3-L4 and L4-L5. If concern for nerve root impingement, consider MRI. RAD/Lumbar Spine 2 or 3 Views IMPRESSION: Degenerative disc disease of the lower lumbar spine with mild scoliosis. If persistent concern, consider MRI Reading Location: [id number] CC: Dr. Nataliya Gomez MD Sheriffs: Signed [facility] 07-29-2024 36 The patient has upco sung Botox appt on 08/15/2024 The Botox will be supplied by us at [facility] and delivered to the MD office on 08/06/2024 BOTOX IS PATIENT SUPPLIED!!! # of Units to be Administered: 200 Medication: botox Dosing Schedule: once every 12 weeks Prior Authorization: Approved (pharmacy benefit) [facility] 07-08-2024 36 [place]: 12/13/23 NOV: Refill pended for approval Depo with 0 refills. [facility] 36on 07-03-[address] [place] [address] investigating ubrelvy [place] [address] Let her know that we have to get approval for Ubrelvy first--I sent a message to [facility] 36 Is it possible to ge t Ubrelvy approved? 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 Polina states that she is requesting to have a script sent to [id number], as soon as possible. Please advise. Best time of day caller can be reached: Any Patient advised that office/PCP has 24-48 business hours to return their call: No [facility] 36 [facility] the office back, please let her know samples can not be mailed. [facility] 36 See other TE [facility] 36on 07-02-2024 36 Please see previous TE Message released to patient as written. Patient's further questions if applicable: N/A Were all questions from office addressed or relayed to the patient from encounter: Yes Patient is inquiring if the [facility] pharmacy can deliver samples of Ubrelvy to her. Please advise. [facility] 36 Lm for [facility] to [facility] the office back, please relay providers message. [place] [address] Please contact pt an d have her stop in and get samples of Ubrelvy-4 of the 100mgs [facility] 36 S: Patient spoke to CAC nurse regarding migraine B: Onset of symptoms/concerns 2 to 3 weeks A: Patient states stating that the Nurtec is seeming to make her headaches worse. She has been having worsening headaches recently in the last 2 to 3 weeks. Patient is asking for message to be sent to provider asking for advice. R: Advised patient that a message would be sent to provider. Patient verbalized understanding. Reason for Disposition MODERATE headache (e.g., interferes with normal activities) present > 24 hours and unexplained Protocols used: [id number] [facility] 36 Spoke with Mi today about Nurtec efficacy. She does not feel the medication has been helpful, reporting no improvement in her migraines when she takes a dose and noted that sometimes it makes them worse. She reported 4 migraine days in the past 30 days. I see she has an appointment coming up on 08/15/24, but I encouraged her to reach out to the office to discuss. Thank you! [facility] 36on 06-10-2024 36 Patient is stating t hat the botox was denied, please advise [facility] 36on 06-07-2024 36 Pt states was not gi ayla any info of why the injections were denied and was told to just resubmit the claim [facility] 36 Lm for patient to ca ll the office back, please get a more detailed message. What was denied? [facility] 36 Name of caller: Fadumo lee Contact phone number: [phone] Relationship to Patient: patient Provider: René Mason Practice: Neurology Chief Complaint/Reason for Call: Polina called advising that her request for approval from the insurance company was denied. Patient advised she why it was denied. Please call patient back and advise. Best time of day caller can be reached: any Patient advised that office/PCP has 24-48 business hours to return their call: Yes [facility] Progress Noteon 06-06-2024 Progress Note Pt supplied depo giv en in left gluteal [id number] LOT [id number] Exp 07/06/2025 [facility] 36on 05-20-2024 36 Spoke with patient a nd answered all questions [facility] 36 Name of caller: Fadumo lee Contact phone number: [phone] Relationship to Patient: patient Provider: ROBERT Mason Practice: [facility] Neurology [place] Chief Complaint/Reason for Call: Patient states that she received a new insurance care with the same member ID, effective 04/26/24. Patient states that the card states that she will be responsible for a copay. Patient is scheduled for Botox on 05/23. CAC advised of negotiation. Patient states that she would like to receive a call back to discuss the amount she would be responsible for. Please call and advise. Best time of day caller can be reached: Any Patient advised that office/PCP has 24-48 business hours to return their call: No [facility] CBC W/Diff, Automatedon 04-05 Absolute Lymph 1.93 X10 3/uL Normal 0.83-4.51 [facility] Comment on above: Order Comment: Order Date: 04/11/24Order Info: 183- - CBCD Performed By: #### M 100.1000 #### [facility] [address] [place], [address] Absolute Neut 7.4 X10 3/uL Normal 2.0-7.7 [facility] Comment on above: Order Comment: Order Date: 04/11/24Order Info: 183- - CBCD Performed By: #### M 100.1000 #### [facility] [address] [place], [address] Basophils/100 WBC (Bld) 0.3 % Normal 0-1 [facility] Comment on above: Order Comment: Order Date: 04/11/24Order Info: 183- - CBCD Performed By: #### M 100.1000 #### [facility] [address] [place], [address] Eosinophils/100 WBC (Bld) 0.1 % Normal 0-5 [facility] Comment on above: Order Comment: Order Date: 04/11/24Order Info: 183- - CBCD Performed By: #### M 100.1000 #### [facility] [address] [place], [address] Erythrocyte distribution width (RBC) [Ratio] 13.2 % Normal 11.6-14.6 [facility] Comment on above: Order Comment: Order Date: 04/11/24Order Info: 183- - CBCD Performed By: #### M 100.1000 #### [facility] [address] [place], [address] Hematocrit (Bld) [Volume fraction] 47.8 % High 37-47 [facility] Comment on above: Order Comment: Order Date: 04/11/24Order Info: 183- - CBCD Performed By: #### M 100.1000 #### [facility] [address] [place], [address] Hemoglobin (Bld) [Mass/Vol] 15.6 g/dL High 12.0-15.0 [facility] Comment on above: Order Comment: Order Date: 04/11/24Order Info: 018- - CBCD Performed By: #### M 100.1000 #### [facility] [address] [place], [address] IG% 0.400 Normal 0.0-0.9 [facility] Comment on above: Order Comment: Order Date: 04/11/24Order Info: 183- - CBCD Result Comment: IG% - Immature Granulocytes (promyelocytes, myelocytes and metamyelocytes) > 1% indicates that a LEFT SHIFT is Present. Performed By: #### M 100.1000 #### [facility] [address] [place], [address] Lymphocytes/100 WBC (Bld) 19.8 % Normal 19-41 [facility] Comment on above: Order Comment: Order Date: 04/11/24Order Info: 018- - CBCD Performed By: #### M 100.1000 #### [facility] [address] [place], [address] MCH (RBC) [Entitic mass] 32.2 pg High 27.0-32.0 [facility] Comment on above: Order Comment: Order Date: 04/11/24Order Info: 018- - CBCD Performed By: #### M 100.1000 #### [facility] [address] [place], [address] MCHC (RBC) [Mass/Vol] 32.6 g/dL Normal 32-36 [facility] Comment on above: Order Comment: Order Date: 04/11/24Order Info: 018- - CBCD Performed By: #### M 100.1000 #### [facility] [address] [place], [address] MCV (RBC) [Entitic vol] 98.6 fL Normal 81-99 [facility] Comment on above: Order Comment: Order Date: 04/11/24Order Info: 0184-1 - CBCD Performed By: #### M 100.1000 #### [facility] [address] [place], [address] Monocytes/100 WBC (Bld) 3.6 % Normal 0-10 [facility] Comment on above: Order Comment: Order Date: 04/11/24Order Info: 0184-1 - CBCD Performed By: #### M 100.1000 #### [facility] [address] [place], [address] Neutrophils/100 WBC (Bld) 75.8 % High 47-70 [facility] Comment on above: Order Comment: Order Date: 04/11/24Order Info: 0184-1 - CBCD Performed By: #### M 100.1000 #### [facility] [address] [place], [address] Nucleated RBC (Bld) [#/Vol] 0 10*3/uL Normal 0-5 [facility] Comment on above: Order Comment: Order Date: 04/11/24Order Info: 0184-1 - CBCD Performed By: #### M 100.1000 #### [facility] [address] [place], [address] Platelet mean volume (Bld) [Entitic vol] 9.9 fL Normal 6.2-12.0 [facility] Comment on above: Order Comment: Order Date: 04/11/24Order Info: 0184-1 - CBCD Performed By: #### M 100.1000 #### [facility] [address] [place], [address] Platelets (Bld) [#/Vol] 271 10*3/uL Normal 150-450 [facility] Comment on above: Order Comment: Order Date: 04/11/24Order Info: 018- - CBCD Performed By: #### M 100.1000 #### [facility] [address] [place], [address] RBC (Bld) [#/Vol] 4.85 10*6/uL Normal 4.2-5.4 [facility] Comment on above: Order Comment: Order Date: 04/11/24Order Info: 018- - CBCD Performed By: #### M 100.1000 #### [facility] [address] [place], [address] RDW SD 47.6 fl High 35.1-43.9 [facility] Comment on above: Order Comment: Order Date: 04/11/24Order Info: 018- - CBCD Performed By: #### M 100.1000 #### [facility] [address] [place], [address] WBC (Bld) [#/Vol] 9.7 10*3/uL Normal 4.4-11.0 [facility] Comment on above: Order Comment: Order Date: 04/11/24Order Info: 018- - CBCD Performed By: #### M 100.1000 #### [facility] [address] [place], [address] Comprehensive Metabolic Prof ricj 04-15-2024 Albumin [Mass/Vol] 4.0 g/dL Normal 3.2-5.0 [facility] Comment on above: Order Comment: Order Date: 04/11/24Order Info: 0786-1 - CMPOrder Info: 3016-3 - TSHOrder Date: 04/15/24Order Info: 0553-1 - FSHLH Performed By: #### M 100.1000 #### [facility] [address] [place], [address] Albumin/Globulin [Mass ratio] 1.0 {ratio} Normal 0.9-2.4 [facility] Comment on above: Order Comment: Order Date: 04/11/24Order Info: 86-1 - CMPOrder Info: 6-3 - TSHOrder Date: 04/15/24Order Info: 0553-1 - FSHLH Performed By: #### M 100.1000 #### [facility] [address] [place], [address] ALK P 59 U/L Normal 45-117 [facility] Comment on above: Order Comment: Order Date: 04/11/24Order Info: 0786-1 - CMPOrder Info: 3015-3 - TSHOrder Date: 04/15/24Order Info: 0553-1 - FSHLH Performed By: #### M 100.1000 #### [facility] [address] [place], [address] ALT [Catalytic activity/Vol] 24 U/L Normal 13-56 [facility] Comment on above: Order Comment: Order Date: 04/11/24Order Info: 86-1 - CMPOrder Info: 3015-3 - TSHOrder Date: 04/15/24Order Info: 0553-1 - FSHLH Performed By: #### M 100.1000 #### [facility] [address] [place], [address] AST [Catalytic activity/Vol] 11 U/L Low 15-37 [facility] Comment on above: Order Comment: Order Date: 04/11/24Order Info: 86-1 - CMPOrder Info: 3015-08 - TSHOrder Date: 04/15/24Order Info: 0553-1 - FSHLH Performed By: #### M 100.1000 #### [facility] [address] [place], [address] Bilirubin [Mass/Vol] 0.40 mg/dL Normal 0.20-1.00 [facility] Comment on above: Order Comment: Order Date: 04/11/24Order Info: 86-1 - CMPOrder Info: 3015-3 - TSHOrder Date: 04/15/24Order Info: 0553-1 - FSHLH Result Comment: For patients on eltrombopag therapy, use of Dimension Whitney TBIL is not recommended. Performed By: #### M 100.1000 #### [facility] [address] [place], [address] (434) BUN/CRE 8.8 RATIO Low 10-20 [facility] Comment on above: Order Comment: Order Date: 04/11/24Order Info: 0786-1 - CMPOrder Info: 3016-3 - TSHOrder Date: 04/15/24Order Info: 0553-1 - FSHLH Performed By: #### M 100.1000 #### [facility] [address] [place], [address] CA,Total 9.4 mg/dL Normal 8.5-10.1 [facility] Comment on above: Order Comment: Order Date: 04/11/24Order Info: 86-1 - CMPOrder Info: 3015-3 - TSHOrder Date: 04/15/24Order Info: 0553-1 - FSHLH Performed By: #### M 100.1000 #### [facility] [address] [place], [address] Chloride [Moles/Vol] 112 mmol/L High 98-107 [facility] Comment on above: Order Comment: Order Date: 04/11/24Order Info: 86-1 - CMPOrder Info: 3015-3 - TSHOrder Date: 04/15/24Order Info: 0553-1 - FSHLH Performed By: #### M 100.1000 #### [facility] [address] [place], [address] CO2 [Moles/Vol] 18.0 mmol/L Low 21.0-32.0 [facility] Comment on above: Order Comment: Order Date: 04/11/24Order Info: 86-1 - CMPOrder Info: 6-3 - TSHOrder Date: 04/15/24Order Info: 0553-1 - FSHLH Performed By: #### M 100.1000 #### [facility] [address] [place], [place], [address] Creatinine [Mass/Vol] 0.79 mg/dL Normal 0.55-1.02 [facility] Comment on above: Order Comment: Order Date: 04/11/24Order Info: 785-1 - CMPOrder Info: 3016-3 - TSHOrder Date: 04/15/24Order Info: 0553-1 - FSHLH Result Comment: The validity of the calculated GFR GFRAA in patients over 70 years has not been determined. Clinical correlation is essential. Performed By: #### M 100.1000 #### [facility] [address] [place], [place], [address] EST GFR - AA 107 mL/min Normal >60 [facility] Comment on above: Order Comment: Order Date: 04/11/24Order Info: 785-1 - CMPOrder Info: 3 - TSHOrder Date: 04/15/24Order Info: 0553-1 - FSHLH Result Comment: Afri can Haitian GFR Calc Performed By: #### M 100.1000 #### [facility] [address] [place], [place], [address] GAP 11 Normal 5-15 [facility] Comment on above: Order Comment: Order Date: 04/11/24Order Info: 785-1 - CMPOrder Info: 63 - TSHOrder Date: 04/15/24Order Info: 0553-1 - FSHLH Performed By: #### M 100.1000 #### [facility] [address] [place], [place], [address] GFR/1.73 sq M.predicted among non-blacks MDRD (S/P/Bld) [Vol rate/Area] 89 mL/min/{1.73_m2} Normal >60 [facility] Comment on above: Order Comment: Order Date: 04/11/24Order Info: 86-1 - CMPOrder Info: 63 - TSHOrder Date: 04/15/24Order Info: 0553-1 - FSHLH Result Comment: Non- GFR Calc Performed By: #### M 100.1000 #### [facility] [address] [place], [place], [address] Globulin (S) [Mass/Vol] 3.9 g/dL Normal 2.2-4.2 [facility] Comment on above: Order Comment: Order Date: 04/11/24Order Info: 785-1 - CMPOrder Info: 3015-08 - TSHOrder Date: 04/15/24Order Info: 552-1 - FSHLH Performed By: #### M 100.1000 #### [facility] [address] [place], [address] Glucose [Mass/Vol] 118 mg/dL High 74-106 [facility] Comment on above: Order Comment: Order Date: 04/11/24Order Info: 785- - CMPOrder Info: 3015-08 - TSHOrder Date: 04/15/24Order Info: 552- - FSHLH Result Comment: Fast ing Glucose result from 100 to 125 mg/dL suggests IMPAIRED HOMEOSTASIS per A.D.A. criteria. Performed By: #### M 100.1000 #### [facility] [address] [place], [address] Potassium [Moles/Vol] 3.6 mmol/L Normal 3.5-5.1 [facility] Comment on above: Order Comment: Order Date: 04/11/24Order Info: 785- - CMPOrder Info: 3015-08 - TSHOrder Date: 04/15/24Order Info: 552-1 - FSHLH Performed By: #### M 100.1000 #### [facility] [address] [place], [address] Sodium [Moles/Vol] 141 mmol/L Normal 136-145 [facility] Comment on above: Order Comment: Order Date: 04/11/24Order Info: 785-1 - CMPOrder Info: 3015-08 - TSHOrder Date: 04/15/24Order Info: 552-1 - FSHLH Performed By: #### M 100.1000 #### [facility] [address] [place], [address] T PROT 7.9 g/dL Normal 6.4-8.2 [facility] Comment on above: Order Comment: Order Date: 04/11/24Order Info: 0786-1 - CMPOrder Info: 3016-3 - TSHOrder Date: 04/15/24Order Info: 0553-1 - FSHLH Performed By: #### M 100.1000 #### [facility] [address] [place], [place], [address] Urea nitrogen [Mass/Vol] 7 mg/dL Normal 7-18 [facility] Comment on above: Order Comment: Order Date: 04/11/24Order Info: 785-1 - CMPOrder Info: 6-3 - TSHOrder Date: 04/15/24Order Info: 0553-1 - FSHLH Performed By: #### M 100.1000 #### [facility] [address] [place], [place], [address] FSH and LHon 04-15-2024 FSH 4.5 mIU/mL Normal [facility] Comment on above: Order Comment: Order Date: 04/11/24 Order Info: 0786-1 - CMP Order Info: 3016-3 - TSH Order Date: 04/15/24 Order Info: 0553-1 - FSHLH Result Comment: NORMAL REFERENCE RANGES FEMALE FOLLICULAR 2.3 - 12.6 mIU/mL MID-CYCLE PEAK 5.2 - 17.5 mIU/mL LUTEAL 1.7 - 12.9 mIU/mL POST-MENOPAUSAL ON MHT 5.9 - 72.8 mIU/mL NOT ON MHT 12.7 - 132.2 mlU/mL MALE 0.7 - 10.8 mIU/mL Performed By: #### L 3100.5055 #### [facility] [address] [place], [place], [address] LH 2.4 mIU/mL Normal [facility] Comment on above: Order Comment: Order Date: 04/11/24 Order Info: 0786-1 - CMP Order Info: 3016-3 - TSH Order Date: 04/15/24 Order Info: 0553-1 - FSHLH Result Comment: NORMAL REFERENCE RANGES FEMALE FOLLICULAR 1.9 - 26.2 mIU/mL MID-CYCLE PEAK 22.8 - 76.1 mIU/mL LUTEAL 0.6 - 16.6 mIU/mL POST-MENOPAUSAL ON MHT 1.1 - 52.4 mIU/mL NOT ON MHT 8.6 - 61.8 mIU/mL MALE 1.2 - 10.6 mIU/mL Performed By: #### L 3100.5055 #### [facility] [address] [place], [place], [address] Thyroid Stim Hormone (TSH)on 04-15-2024 TSH 0.701 uIU/mL Normal 0.358-3.740 [facility] Comment on above: Order Comment: Order Date: 04/11/24Order Info: 0786-1 - CMPOrder Info: 3016-3 - TSHOrder Date: 04/15/24Order Info: 0553-1 - FSHLH Performed By: #### M 100.1000 #### [facility] [address] [place], [place], [address] Vitamin D,25 Hydroxyon 04-15 Vitamin D 25-OH 49.6 ng/mL Normal [facility] Comment on above: Order Comment: Order Date: 04/11/24Order Info: [id number] - VITD25 Result Comment: Eleni min D 25(OH) Status Range Deficiency <20 ng/mL (50nmol/L) Insufficiency 20 - 30 ng/mL (50 - 75 nmol/L) Sufficiency 30 - 100 ng/mL (75 - 250 nmol/L) Toxicity >100 ng/mL (>250 nmol/L) Performed By: #### M 100.1000 #### [facility] [address] [place], [place], [address] 36on 04-05-2024 36 [place]: 12/13/23 NOV: Refill pended for approval Depo-Provera with 0 refills. Normal [facility] 36on 01-30-2024 36 Patient has been rescheduled [facility] 36 Name of Caller: Fadumo lee Contact Reason for Appointment: Reschedule 01/24 botox appointment for two weeks out Office Name: [facility] Neu[facility] Rashawn [facility] 36on 01-19-2024 36 Spoke with patient a nd had to cancel the appointment. She will call to reschedule [facility] 36 Name of caller: Fadumo lee Contact phone number: [phone] Relationship to Patient: patient Provider: ROBERT Mason Practice: [facility] Chief Complaint/Reason for Call: Pt called to cancel appointment that was scheduled for 01/24 due to transportation issues not knowing that it was for Botox until after the appointment was canceled. Pt would like to add the appointment 01/24 at 1p back if possible. Please review. Best time of day caller can be reached: any Patient advised that office/PCP has 24-48 business hours to return their call: N/A [facility] 36on 01-11-2024 36 Patients prescriptio n insurance currently doesn't require prescription rx pa sorry about that, thanks! [facility] 36 Can we have the auth dates please [facility] 36 The patient has upco sung Botox appt on 01/25/24. The Botox will be supplied by us at [facility] and delivered to the MD office on 01/23/24. BOTOX IS PATIENT SUPPLIED!!! # of Units to be Administered: 200 Medication: botox Dosing Schedule: once every 12 weeks Prior Authorization: Approved (pharmacy benefit) [facility] 36on 01-05-2024 36 [place]: 12/13/23 NOV: Refill pended for approval Depo-Provera with 0 refills. [facility] 36on 01-01-2024 36 Message released to patient as written. Patient's further questions if applicable: yes Were all questions from office addressed or relayed to the patient from encounter: Yes [facility] Progress Noteon 12-21-2023 Progress Note Depo given in right gluteal on 12/21/23. Pt out of window. - HPT. Pt tolerated well. [facility]# [id number] LOT# [id number] EXP JANUARY 02 2027 Pt supplied Normal [facility] 36on 12-19-2023 36 Mychart mssg sent. N ot all labs are back Normal [facility] 36 Name of caller: Fadumo lee Contact phone number: [phone] Relationship to Patient: patient Provider: Dr. Kwok Practice: [facility] Chief Complaint/Reason for Call: Polina called in to get the results of her labs. Please call Polina with results Best time of day caller can be reached: any Patient advised that office/PCP has 24-48 business hours to return their call: Yes Normal [facility] Bacteria identified Cx Nom ( U)on 12-15-2023 [facility] Urine cultureon 12-15-2023 Bacteria identified Cx Nom (U) SEE NOTE [facility] Comment on above: CULTURE, URINE, ROUTINE Micro Number: [id number] Test Status: Final Specimen Source: Urine Specimen Quality: Adequate Result: Less than 10,000 CFU/mL of single Gram positive organism isolated. No further testing will be performed. If clinically indicated, recollection using a method to minimize contamination, with prompt transfer to Urine Culture Transport Tube, is recommended. Office Visiton 12-13-2023 Follow-up visit [id number] Nikolai Giron 1990 F Date Provider Department Center 12/13/2023 [id number] Family History Problem Relation Age of Onset ADD / ADHD Mother Anxiety disorder Mother Depression Mother Migraines Mother Family Status - Relation Status Age at Mother Level of Service:58417 MS PERIODIC PREVENTIVE MED EST PATIENT 18-39 YRS Reason for Visit and Comments: Follow-up [684890] - Urinary incontinence for years Vaginal itching IBS Normal [facility] Progress Noteon 12-13-2023 Progress Note Polina Giron 12/13/2022 33 y.o. Primary Care Physician: Nataliya Gomez MD Chief Complaint Patient presents with Follow-up Urinary incontinence for years Vaginal itching IBS HPI : Polina Giron is a 33 y.o. female here for annual exam Gynecologic History: No LMP recorded (lmp unknown). No periods on depo Does c/o vaginal itching OB History Para Term AB Living 1 1 1 0 0 1 SAB IAB Ectopic Multiple Live Births 0 0 0 0 1 # Outcome Date GA Lbr Joey/2nd Weight Sex Type Anes PTL Lv 1 Term 02/13/14 39w0d F Vag-Spont VADIM Past Medical History: Diagnosis Date ADHD (attention deficit hyperactivity disorder) Anxiety 2008 Back pain Bipolar 2 disorder (CMS/HCC) (HCC) Cluster headache Depression 2004 Headache 2021 Headache, tension-type 2021 Insomnia 2004 Migraine 2021 Sleep apnea 2006 Past Surgical History: Procedure Laterality Date ANTERIOR CRUCIATE LIGAMENT REPAIR APPENDECTOMY APPENDECTOMY SECTION (HISTORICAL) Family History Problem Relation Name Age of Onset ADD / ADHD Mother Polina Anxiety disorder Mother Polina Depression Mother Polina Migraines Mother Polina Social History Socioeconomic History Marital status: Single Spouse name: Not on file Number of children: Not on file Years of education: Not on file Highest education level: Not on file Occupational History Not on file Tobacco Use Smoking status: Every Day Current packs/day: 1.00 Average packs/day: 1 pack/day for 15.0 years (15.0 ttl pk-yrs) Types: Cigarettes Smokeless tobacco: Never Substance and Sexual Activity Alcohol use: Never Drug use: Yes Types: Marijuana Comment: Marijuana Sexual activity: Not Currently Partners: Male control/protection: Injection Comment: depo Other Topics Concern Not on file Social History Narrative Not on file Social Determinants of Health Financial Resource Strain: Medium Risk (09/29/2021) Received from [facility] Overall Financial Resource Strain (CARDIA) Difficulty of Paying Living Expenses: Somewhat hard Food Insecurity: Food Insecurity Present (09/29/2021) Received from [facility] Hunger Vital Sign Worried About Running Out of Food in the Last Year: Sometimes true Ran Out of Food in the Last Year: Never true Transportation Needs: No Transportation Needs (09/29/2021) Received from [facility] PRAPARE - Transportation Lack of Transportation (Medical): No Lack of Transportation (Non-Medical): No Physical Activity: Insufficiently Active (09/29/2021) Received from [facility] Exercise Vital Sign Days of Exercise per Week: 2 days Minutes of Exercise per Session: 30 min Stress: Stress Concern Present (09/29/2021) Received from [facility] [employer] of Occupational Health - Occupational Stress Questionnaire Feeling of Stress : To some extent Social Connections: Socially Isolated (09/29/2021) Received from [facility] Social Connection and Isolation Panel [NHANES] Frequency of Communication with Friends and Family: Twice a week Frequency of Social Gatherings with Friends and Family: Never Attends Alevism Services: Never Active Member of Clubs or Organizations: No Attends Club or Organization Meetings: Never Marital Status: Never Intimate Partner Violence: Not on file Housing Stability: Low Risk (09/29/2021) [facility] Housing Stability Vital Sign Unable to Pay for Housing in the Last Year: No Number of Places Lived in the Last Year: 2 In the last 12 months, was there a time when you did not have a steady place to sleep or slept in a half-way (including now)?: No MEDICATIONS: Current Outpatient Medications Medication Sig Dispense Refill albuterol 108 (90 Base) MCG/ACT inhaler inhale 2 puffs by mouth every 4 hours if needed for wheezing or shortness of breath amphetamine-dextroamphetam ine (Adderall) 20 MG tablet Biotin w/ Vitamins C & E (HAIR SKIN & NAILS GUMMIES PO) Take by mouth. cholecalciferol (Vitamin D-3) 50 MCG (1999 UT) tablet Take 50 mcg by mouth daily. hydrOXYzine pamoate (Vistaril) 50 MG capsule take 1 capsule by mouth three times a day if needed for anxiety or sleep hyoscyamine (Anaspaz,Levsin) 0.125 MG tablet lamoTRIgine (LaMICtal) 200 MG tablet lamoTRIgine (LaMICtal) 25 MG tablet Take 100 mg by mouth in the morning. medroxyPROGESTERone (Depo-Provera) 150 MG/ML suspension prefilled syringe injection syringe Inject 1 mL (150 mg) in (more content not included)... Normal [facility] Progress Note Negative Normal [facility] Progress Note Book Coverer was tello soto to the patient for exam. Patient accepted, chief medical technologist in room during exam and consult. Normal [facility] Urinalysis macro (dipstick) panel (U)on 12-13-2023 Bilirubin, UA Negative [facility] Blood, UA Negative [facility] Glucose, UA Negative [facility] Interpretation and review of laboratory results Abnormal [facility] Ketones, POC (mg/dL) 15 mg/dL [facility] Leukocytes, UA Negative [facility] Nitrite, UA Negative [facility] pH, UA 6.0 [facility] Protein, UA Negative [facility] Spec Grav, UA 1.015 [facility] Urobilinogen, UA 0.2 [facility] 36on 11-20-2023 36 [place]: NOV: 11/22/2023 Refill pended for approval Depo-Provera with 0 refills. Normal [facility] LABORATORYOrdered By: Isha Mancera on 04-11-2023 S. pyogenes DNA MICHELLE+probe Ql (Throat) Negative (04/11/23 2:04 PM) Invalid Interpretation Code Negative AO Auto Urine SS S. pyogenes DNA MICHELLE+probe Ql (Throat) Negative for Streptococcus pyogenes by PCR. Negative test results do not rule out other possible infections besides those caused by Group A Streptococcus. False Negatives may be obtained in the presence of NYQUIL (0.5% V/V)The Boris Group A Strep Assay is a real-time polymerase chain reaction (PCR) based qualitative in vitro diagnostic test for the direct detection of Streptococcus pyogenes (Group A Beta hemolytic Streptococcus) in throat swab specimens from patients with signs and symptoms of pharyngitis.The Boris Group A Strep Assay can be used as an aid in the diagnosis of Group A Streptococcal pharyngitis. The assay is not intended to monitor treatment for Group A Streptococcus infections. Invalid Interpretation Code AO Auto Urine SS STREPAon 04-11-2023 Group A Strep PCR Negative Normal Negative [facility] ([place]) Comment on above: Performed By: #### S JOSE #### [address] [address] Group A Strep PCR Int Normal [facility] ([place]) Comment on above: Result Comment: Nega tive for Streptococcus pyogenes by PCR. Negative test results do not rule out other possible infections besides those caused by Group A Streptococcus. False Negatives may be obtained in the presence of NYQUIL (0.5% V/V) The Boris Group A Strep Assay is a real-time polymerase chain reaction (PCR) based qualitative in vitro diagnostic test for the direct detection of Streptococcus pyogenes (Group A Beta hemolytic Streptococcus) in throat swab specimens from patients with signs and symptoms of pharyngitis. The Boris Group A Strep Assay can be used as an aid in the diagnosis of Group A Streptococcal pharyngitis. The assay is not intended to monitor treatment for Group A Streptococcus infections. See Interp Performed By: #### S JOSE #### [address] [address] XR CHEST 1 VIEWon 04-11-2023 XR CHEST 1 VIEW ORIGINAL EXAMINATION: ONE XRAY VIEW OF THE CHEST04/11/2023 1:33 pm CHEST ONE VIEW AP/PA COMPARISON: 04/14/2022 HISTORY: ORDERING SYSTEM PROVIDED HISTORY: Reason for Exam: SOB/cough/fever FINDINGS: Heart size and vascularity are within normal limits. The lungs are clear of focal consolidation. No effusion, pneumothorax, or acute osseous abnormality. IMPRESSION: No radiographic evidence of acute cardiopulmonary process. Interpreted by: Ad Navarro MD Preliminary Report By: Ad Navarro MD Electronically signed By Ad Navarro MD Dictated Date: 04/11/2023 2:18:03 PM Prelim Date: 04/11/2023 2:18:16 PM Sign Date: 04/11/2023 2:18:16 PM Ordering Provider: DAWSON Salas [facility] ([place]) .Urinalysis Microscopic (AO) on 02-18-2023 UA Bacteria 1+ /hpf Abnormal [facility] ([place]) Comment on above: Performed By: #### U A, PREGU, UAMICAO #### [facility] [address] [place], [place] [address] UA RBC 0-5 Abnormal None Seen [facility] ([place]) Comment on above: Performed By: #### U A, PREGU, UAMICAO #### [place] [place], [place] [address] UA Squam Epithelial 0-5 Abnormal None Seen [facility] ([place]) Comment on above: Performed By: #### U A, PREGU, UAMICAO #### [address] [place], [place] [address] UA WBC LOADED Abnormal None Seen [facility] ([place]) Comment on above: Performed By: #### U A, PREGU, UAMICAO #### [address] [place], [place] [address] LABORATORYOrdered By: Coby Rivera on 02-18-2023 Appearance (U) Clear (02/18/23 12:14 PM) Invalid Interpretation Code Clear AO Auto Urine SS Bacteria LM.HPF (Urine sed) [#/Area] 1 /[HPF] Invalid Interpretation Code AO Auto Urine SS Bilirubin Ql (U) Negative (02/18/23 12:14 PM) Invalid Interpretation Code Negative AO Auto Urine SS Color (U) Yellow (02/18/23 12:14 PM) Invalid Interpretation Code AO Auto Urine SS Glucose Test strip (U) [Mass/Vol] Negative Invalid Interpretation Code Negative AO Auto Urine SS HCG ( test) Ql Negative (02/18/23 12:14 PM) Invalid Interpretation Code AO Manual Urine SS Hemoglobin Auto test strip (U) [Mass/Vol] Trace *ABN* (02/18/23 12:14 PM) Invalid Interpretation Code Negative AO Auto Urine SS Ketones Ql (U) Negative Invalid Interpretation Code Negative AO Auto Urine SS test (u) int Not detected Invalid Interpretation Code AO Manual Urine SS UA Leuk Est Trace *ABN* (02/18/23 12:14 PM) Invalid Interpretation Code Negative AO Auto Urine SS UA Nitrite Negative (02/18/23 12:14 PM) Invalid Interpretation Code Negative AO Auto Urine SS UA pH 8.0 (02/18/23 12:14 PM) Invalid Interpretation Code 5.0 - 8.0 AO Auto Urine SS UA Protein Negative Invalid Interpretation Code Negative AO Auto Urine SS UA RBC 0-5 /HPF Invalid Interpretation Code None Seen AO Auto Urine SS UA Spec Grav 1.020 (02/18/23 12:14 PM) Invalid Interpretation Code 1.015-1.025 AO Auto Urine SS UA Specimen Type Void (02/18/23 12:14 PM) Invalid Interpretation Code AO Auto Urine SS UA Squam Epithelial 0-5 /HPF Invalid Interpretation Code None Seen AO Auto Urine SS UA Urobilinogen 0.2 E.U./dL Invalid Interpretation Code 0.2-1.0 AO Auto Urine SS WBC LM.HPF (Urine sed) [#/Area] LOADED /HPF Invalid Interpretation Code None Seen AO Auto Urine SS PREGUon 02-18-2023 HCG ( test) Ql (U) Negative Normal [facility] ([place]) Comment on above: Performed By: #### U A, PREGU, UAMICAO #### [address] [address] test (u) int Not detected Invalid Interpretation Code [facility] ([place]) Comment on above: Performed By: #### U A, PREGU, UAMICAO #### [address] [address] UAon 02-18-2023 Color (U) Yellow Normal [facility] ([place]) Comment on above: Performed By: #### U A, PREGU, UAMICAO #### [address] [address] Glucose (U) [Mass/Vol] Negative Normal Negative [facility] ([place]) Comment on above: Performed By: #### U A, PREGU, UAMICAO #### [address] [address] Ketones Ql (U) Negative Normal Negative [facility] ([place]) Comment on above: Performed By: #### U A, PREGU, UAMICAO #### [address] [address] UA Appear Clear Normal Clear [facility] ([place]) Comment on above: Performed By: #### U A, PREGU, UAMICAO #### [address] [address] UA Blood Trace Abnormal Negative [facility] ([place]) Comment on above: Performed By: #### U A, PREGU, UAMICAO #### [place] [address] UA Leuk Est Trace Abnormal Negative [facility] ([place]) Comment on above: Performed By: #### U A, PREGU, UAMICAO #### [place] [address] UA Nitrite Negative Normal Negative [facility] ([place]) Comment on above: Performed By: #### U A, PREGU, UAMICAO #### [place] [address] UA pH 8.0 Normal 5.0 - 8.0 [facility] ([place]) Comment on above: Performed By: #### U A, PREGU, UAMICAO #### [place] [address] UA Protein Negative Normal Negative [facility] ([place]) Comment on above: Performed By: #### U A, PREGU, UAMICAO #### [place] [address] UA Spec Grav 1.020 Normal 1.015-1.025 [facility] ([place]) Comment on above: Performed By: #### U A, PREGU, UAMICAO #### [address] [address] UA Specimen Type Void Normal [facility] ([place]) Comment on above: Performed By: #### U A, PREGU, UAMICAO #### [address] [address] UA Urobilinogen 0.2 E.U./dL Normal 0.2-1.0 [facility] ([place]) Comment on above: Performed By: #### U A, PREGU, UAMICAO #### [place] [place] [address] Urobilinogen (U) [Mass/Vol] Negative Normal Negative [facility] ([place]) Comment on above: Performed By: #### U A, PREGU, UAMICAO #### [address] [place] [id number] LABORATORYOrdered By: Isha Mancera on 04-14-2022 Appearance (U) Slightly Cloudy *ABN* (04/14/22 10:10 AM) Invalid Interpretation Code Clear AO Auto Urine SS Bacteria LM.HPF (Urine sed) [#/Area] 3 /[HPF] Invalid Interpretation Code AO Auto Urine SS Basophil, Absolute 0.0 103/mcL Invalid Interpretation Code 0.0 - 0.2 10^3/mcL AO Workflow SS Basophils/100 WBC (Bld) 0.5 % Invalid Interpretation Code 0.0 - 2.5 % AO Workflow SS Bilirubin Ql (U) Small *ABN* (04/14/22 10:10 AM) Invalid Interpretation Code Negative AO Auto Urine SS Calcium [Mass/Vol] 9.8 mg/dL Invalid Interpretation Code 8.4 - 10.2 mg/dL AO ADM SS Chloride [Moles/Vol] 103 mmol/L Invalid Interpretation Code 98 - 107 mmol/L AO ADM SS CO2 [Moles/Vol] 24 mmol/L Invalid Interpretation Code 22 - 29 mmol/L AO ADM SS Color (U) Yellow (04/14/22 10:10 AM) Invalid Interpretation Code AO Auto Urine SS Creatinine [Mass/Vol] 0.76 mg/dL Invalid Interpretation Code 0.55 - 1.02 mg/dL AO ADM SS Electrolyte Balance 15.0 mEq/L Invalid Interpretation Code 4.0 - 15.0 mEq/L AO ADM SS Eosinophil, Absolute 0.0 103/mcL Invalid Interpretation Code 0.0 - 0.4 10^3/mcL AO Workflow SS Eosinophils/100 WBC (Bld) 0.1 % Invalid Interpretation Code 0.0 - 7.0 % AO Workflow SS Erythrocyte distribution width (RBC) [Ratio] 13.0 % Invalid Interpretation Code 11.5 - 14.5 % AO Workflow SS Glucose [Mass/Vol] 98 mg/dL Invalid Interpretation Code 70 - 105 mg/dL AO ADM SS Glucose Test strip (U) [Mass/Vol] Negative Invalid Interpretation Code Negativemg/ dL AO Auto Urine SS HCG ( test) Ql Negative (04/14/22 10:10 AM) Invalid Interpretation Code AO Manual Urine SS Hematocrit (Bld) [Volume fraction] 47.1 % Invalid Interpretation Code 37.0 - 47.0 % AO Workflow SS Hemoglobin (Bld) [Mass/Vol] 16.0 G/dL Invalid Interpretation Code 12.0 - 16.0 G/dL AO Workflow SS Hemoglobin Auto test strip (U) [Mass/Vol] Trace *ABN* (04/14/22 10:10 AM) Invalid Interpretation Code Negative AO Auto Urine SS Ketones Ql (U) >=160 mg/dL Invalid Interpretation Code Negativemg/ dL AO Auto Urine SS Lymphocyte, Absolute 1.2 103/mcL Invalid Interpretation Code 0.8 - 3.9 10^3/mcL AO Workflow SS Lymphocytes/100 WBC (Bld) 23.6 % Invalid Interpretation Code 10.0 - 50.0 % AO Workflow SS MCH (RBC) [Entitic mass] 32.4 pg Invalid Interpretation Code 27.0 - 31.2 pg AO Workflow SS MCHC 34.1 G/dL Invalid Interpretation Code 33.0 - 37.0 G/dL AO Workflow SS MCV (RBC) [Entitic vol] 95.3 fL Invalid Interpretation Code 80.0 - 94.0 fL AO Workflow SS Monocyte distribution width Auto (Bld) [Entitic vol] 23.76 Invalid Interpretation Code 0.00 - 20.00 AO Workflow SS Comment on above: Result Comment: For adults in ED, MDW>20.0 may be associated with a higher risk of sepsis during the first 12hrs of hospital admission Monocyte, Absolute 0.6 103/mcL Invalid Interpretation Code 0.2 - 1.0 10^3/mcL AO Workflow SS Monocytes/100 WBC (Bld) 12.2 % Invalid Interpretation Code 1.7 - 13.0 % AO Workflow SS Neutrophil, Absolute 3.3 103/mcL Invalid Interpretation Code 2.9 - 6.2 10^3/mcL AO Workflow SS Neutrophils/100 WBC (Bld) 63.6 % Invalid Interpretation Code 37.0 - 80.0 % AO Workflow SS Platelet mean volume (Bld) [Entitic vol] 7.2 fL Invalid Interpretation Code 7.4 - 10.4 fL AO Workflow SS Platelets (Bld) [#/Vol] 200 103/mcL Invalid Interpretation Code 130 - 400 10^3/mcL AO Workflow SS Potassium [Moles/Vol] 3.9 mmol/L Invalid Interpretation Code 3.5 - 5.1 mmol/L AO ADM SS test (u) int Not detected Invalid Interpretation Code AO Manual Urine SS RBC (Bld) [#/Vol] 4.95 106/mcL Invalid Interpretation Code 4.20 - 5.40 10^6/mcL AO Workflow SS Sodium [Moles/Vol] 142 mmol/L Invalid Interpretation Code 136 - 145 mmol/L AO ADM SS UA Leuk Est Negative (04/14/22 10:10 AM) Invalid Interpretation Code Negative AO Auto Urine SS UA Mucous 3+ /HPF Invalid Interpretation Code AO Auto Urine SS UA Nitrite Negative (04/14/22 10:10 AM) Invalid Interpretation Code Negative AO Auto Urine SS UA pH 6.0 (04/14/22 10:10 AM) Invalid Interpretation Code 5.0 - 8.0 AO Auto Urine SS UA Protein 30 mg/dL Invalid Interpretation Code Negativemg/ dL AO Auto Urine SS UA RBC 0-5 /HPF Invalid Interpretation Code None Seen/HPF AO Auto Urine SS UA Spec Grav >=1.030 *ABN* (04/14/22 10:10 AM) Invalid Interpretation Code 1.015-1.025 AO Auto Urine SS UA Specimen Type Clean Catch (04/14/22 10:10 AM) Invalid Interpretation Code AO Auto Urine SS UA Squam Epithelial 5-10 /HPF Invalid Interpretation Code None Seen/HPF AO Auto Urine SS UA Urobilinogen 0.2 E.U./dL Invalid Interpretation Code 0.2-1.0E.U. /dL AO Auto Urine SS Urea nitrogen [Mass/Vol] 12 mg/dL Invalid Interpretation Code 7 - 18 mg/dL AO ADM SS Urea nitrogen/Creatinine [Mass ratio] 16 ratio Invalid Interpretation Code 7 - 27 ratio AO ADM SS WBC (Bld) [#/Vol] 5.3 103/mcL Invalid Interpretation Code 4.6 - 10.8 10^3/mcL AO Workflow SS WBC LM.HPF (Urine sed) [#/Area] 0-5 /HPF Invalid Interpretation Code None Seen/HPF AO Auto Urine SS LABORATORYOrdered By: SYSTEM SYSTEM on 04-14-2022 GFR 108 ml/min/1.73sqm Invalid Interpretation Code AO Chemistry S GFR Non- 89 ml/min/1.73sqm Invalid Interpretation Code AO Chemistry S LABORATORYOrdered By: Justina Summers on 12-30-2021 Appearance (U) Clear (12/30/21 12:47 AM) Invalid Interpretation Code Clear AO Auto Urine SS Bilirubin Ql (U) Negative (12/30/21 12:47 AM) Invalid Interpretation Code Negative AO Auto Urine SS Color (U) Yellow (12/30/21 12:47 AM) Invalid Interpretation Code AO Auto Urine SS Glucose Test strip (U) [Mass/Vol] Negative Invalid Interpretation Code Negativemg/ dL AO Auto Urine SS HCG ( test) Ql Negative (12/30/21 12:47 AM) Invalid Interpretation Code AO Manual Urine SS Hemoglobin Auto test strip (U) [Mass/Vol] Trace *ABN* (12/30/21 12:47 AM) Invalid Interpretation Code Negative AO Auto Urine SS Ketones Ql (U) 80 mg/dL Invalid Interpretation Code Negativemg/ dL AO Auto Urine SS test (u) int Not detected Invalid Interpretation Code AO Manual Urine SS UA Leuk Est Negative (12/30/21 12:47 AM) Invalid Interpretation Code Negative AO Auto Urine SS UA Nitrite Negative (12/30/21 12:47 AM) Invalid Interpretation Code Negative AO Auto Urine SS UA pH 5.5 (12/30/21 12:47 AM) Invalid Interpretation Code 5.0 - 8.0 AO Auto Urine SS UA Protein Negative Invalid Interpretation Code Negativemg/ dL AO Auto Urine SS UA Spec Grav 1.025 (12/30/21 12:47 AM) Invalid Interpretation Code 1.015-1.025 AO Auto Urine SS UA Specimen Type Clean Catch (12/30/21 12:47 AM) Invalid Interpretation Code AO Auto Urine SS UA Urobilinogen 0.2 E.U./dL Invalid Interpretation Code 0.2-1.0E.U. /dL AO Auto Urine SS CR Foot Complete 3+ Views Bi lateralon 09-16-2021 CR Foot Complete 3+ Views Bilateral Patient Name: POLINA GIRON Diagnostic Radiology ACCESSION EXAM DATE/TIME PROCEDURE ORDERING PROVIDER [id number] 09/16/2021 13:27 EDT CR Foot Complete 3+ SOPHIE GERMAN Views Bilateral CPT code 12704 Reason For Exam (CR Foot Complete 3+ Views Bilateral) pain heel spur Report BILATERAL FEET CLINICAL INDICATION: pain heel spur AP, lateral, and oblique plain film views of the left and right feet were obtained. COMPARISON: None. Left foot: No fracture or dislocation. There is no abnormal soft tissue swelling or bone erosion. Joint spaces of the left foot are well-maintained. There is a 9 mm calcaneal spur and small Achilles enthesophyte. No evidence of plantar fascia calcification or plantar soft tissue mass. Right foot: No fracture or dislocation. There is no abnormal soft tissue swelling or bone erosion. Joint spaces of the left foot are well-maintained. There is a 7 mm calcaneal spur and small Achilles enthesophyte. No evidence of plantar fascia calcification or plantar soft tissue mass. IMPRESSION: Calcaneal spurring bilaterally. No acute osseous findings. Report Dictated on Final Dictating Physician: MD LAWSON THOMAS Signed Date and Time: 09/17/2021 1:21 pm Signed by: MD LAWSON THOMAS Transcribed Date and Time: 09/17/2021 1:22 Normal [facility] LABORATORYOrdered By: Justina Wilde on 07-23-2021 Albumin BCP dye [Mass/Vol] 4.4 G/dL Invalid Interpretation Code 3.5 - 5.0 G/dL AO ADM SS Albumin/Globulin [Mass ratio] 1.3 {ratio} Invalid Interpretation Code 1.1 - 2.5 ratio AO ADM SS ALP [Catalytic activity/Vol] 59 U/L Invalid Interpretation Code 40 - 135 U/L AO ADM SS ALT With P-5'-P [Catalytic activity/Vol] 27 U/L Invalid Interpretation Code 14 - 59 U/L AO ADM SS AST With P-5'-P [Catalytic activity/Vol] 16 U/L Invalid Interpretation Code 10 - 40 U/L AO ADM SS Bilirubin [Mass/Vol] 0.3 mg/dL Invalid Interpretation Code 0.2 - 1.0 mg/dL AO ADM SS C-Reactive Protein mg/dL Invalid Interpretation Code 0.0 - 0.9 mg/dL AO Chemistry S Calcium [Mass/Vol] 9.1 mg/dL Invalid Interpretation Code 8.4 - 10.2 mg/dL AO ADM SS Chloride [Moles/Vol] 107 mmol/L Invalid Interpretation Code 98 - 107 mmol/L AO ADM SS CO2 [Moles/Vol] 22 mmol/L Invalid Interpretation Code 22 - 29 mmol/L AO ADM SS Creatinine [Mass/Vol] 0.64 mg/dL Invalid Interpretation Code 0.55 - 1.02 mg/dL AO ADM SS Electrolyte Balance 14.0 mEq/L Invalid Interpretation Code 4.0 - 15.0 mEq/L AO ADM SS Globulin 3.4 G/dL Invalid Interpretation Code AO ADM SS Glucose [Mass/Vol] 84 mg/dL Invalid Interpretation Code 70 - 105 mg/dL AO ADM SS Potassium [Moles/Vol] 4.3 mmol/L Invalid Interpretation Code 3.5 - 5.1 mmol/L AO ADM SS Protein [Mass/Vol] 7.8 G/dL Invalid Interpretation Code 6.4 - 8.2 G/dL AO ADM SS Sodium [Moles/Vol] 143 mmol/L Invalid Interpretation Code 136 - 145 mmol/L AO ADM SS TSH Qn 1.49 m[IU]/L Invalid Interpretation Code 0.36 - 3.74 mcIU/mL AO ADM SS Urea nitrogen [Mass/Vol] 11 mg/dL Invalid Interpretation Code 7 - 18 mg/dL AO ADM SS Urea nitrogen/Creatinine [Mass ratio] 17 ratio Invalid Interpretation Code 7 - 27 ratio AO ADM SS Uric Acid Lvl 5.5 mg/dL Invalid Interpretation Code 2.6 - 6.2 mg/dL AO ADM SS Vit. D 25-Hydroxy 33.5 ng/mL Invalid Interpretation Code AO ADM SS LABORATORYOrdered By: Micah Wong on 07-23-2021 Basophil, Absolute 0.00 103/mcL Invalid Interpretation Code 0.00 - 0.19 10^3/mcL AO Auto Heme SS Basophils/100 WBC (Bld) 0.4 % Invalid Interpretation Code 0.0 - 2.5 % AO Auto Heme SS Eosinophil, Absolute 0.00 103/mcL Invalid Interpretation Code 0.00 - 0.40 10^3/mcL AO Auto Heme SS Eosinophils/100 WBC (Bld) 0.7 % Invalid Interpretation Code 0.0 - 7.0 % AO Auto Heme SS Erythrocyte distribution width (RBC) [Ratio] 14.3 % Invalid Interpretation Code 11.5 - 14.5 % AO Auto Heme SS Hematocrit (Bld) [Volume fraction] 46.3 % Invalid Interpretation Code 37.0 - 47.0 % AO Auto Heme SS Hemoglobin (Bld) [Mass/Vol] 15.4 G/dL Invalid Interpretation Code 12.0 - 16.0 G/dL AO Auto Heme SS Lymphocyte, Absolute 2.40 103/mcL Invalid Interpretation Code 0.77 - 3.85 10^3/mcL AO Auto Heme SS Lymphocytes/100 WBC (Bld) 37.2 % Invalid Interpretation Code 10.0 - 50.0 % AO Auto Heme SS MCH (RBC) [Entitic mass] 32.9 pg Invalid Interpretation Code 27.0 - 31.2 pg AO Auto Heme SS MCHC (RBC) [Mass/Vol] 33.4 G/dL Invalid Interpretation Code 33.0 - 37.0 G/dL AO Auto Heme SS MCV (RBC) [Entitic vol] 98.8 fL Invalid Interpretation Code 80.0 - 94.0 fL AO Auto Heme SS Monocyte, Absolute 0.50 103/mcL Invalid Interpretation Code 0.15 - 1.00 10^3/mcL AO Auto Heme SS Monocytes/100 WBC (Bld) 7.2 % Invalid Interpretation Code 1.7 - 13.0 % AO Auto Heme SS Neutrophil, Absolute 3.60 103/mcL Invalid Interpretation Code 2.85 - 6.16 10^3/mcL AO Auto Heme SS Neutrophils/100 WBC (Bld) 54.5 % Invalid Interpretation Code 37.0 - 80.0 % AO Auto Heme SS Platelet mean volume (Bld) [Entitic vol] 8.0 fL Invalid Interpretation Code 7.4 - 10.4 fL AO Auto Heme SS Platelets (Bld) [#/Vol] 271 103/mcL Invalid Interpretation Code 130 - 400 10^3/mcL AO Auto Heme SS RBC (Bld) [#/Vol] 4.68 106/mcL Invalid Interpretation Code 4.20 - 5.40 10^6/mcL AO Auto Heme SS WBC (Bld) [#/Vol] 6.50 103/mcL Invalid Interpretation Code 4.60 - 10.80 10^3/mcL AO Auto Heme SS LABORATORYOrdered By: SYSTEM SYSTEM on 07-23-2021 GFR 133 ml/min/1.73sqm Invalid Interpretation Code AO Chemistry S GFR Non- 110 ml/min/1.73sqm Invalid Interpretation Code AO Chemistry S CULTURE URINEon 06-14-2021 CULTURE URINE CULTURE URINE --> St atus: F Normal urogenital lois present. Normal [facility] Comment on above: Performed By: #### C /UR #### [facility] [address] [place] [address] Group A Strep Screen by PCRo n 06-13-2021 Group A Strep Screen by PCR Group A Strep Screen by PCR --> Status: F NOT Detected Expected Result: Not Detected Methodology - Real Time PCR (Cepheid) Expected Result: Not Detected Methodology - Real Time PCR (Cepheid) Normal [facility] Comment on above: Performed By: #### C UA2, HCGUR, STRP3 #### [facility] [address] [place] [address] #### GASPC #### [facility] [address] [place] [address] CR Chest PA/LATon 06-12-2021 CR Chest PA/LAT Patient Name: POLINA GIRON Diagnostic Radiology ACCESSION EXAM DATE/TIME PROCEDURE ORDERING PROVIDER [id number] 06/12/2021 11:51 EST CR Chest PA and LAT MD JOVANY, MARTÍN Sanchez CPT code 73847 Reason For Exam (CR Chest PA and LAT) cough, smoker. PNA vs URI vs COVID19 Report CHEST (Frontal and lateral) History: Cough, pneumonia/COVID, smoker Comparison: 09/22/2018 Findings: Frontal and lateral chest views show crowded lung markings in both bases and probably associated infiltrate, allowing for overlying breasts. The heart is normal in size. There is no pulmonary congestion, mediastinal widening, or pleural effusion. IMPRESSION: Probable basilar infiltrates. Follow-up suggested. Report Dictated on Final Dictating Physician: MD MCGEE AHMAD Signed Date and Time: 06/12/2021 12:00 pm Signed by: MD MCGEE AHMAD Transcribed Date and Time: 06/12/2021 12:01 Normal [facility] Complete Urinalysison 2021 Bacteria Few (1-5) Abnormal Negative [facility] Comment on above: Result Comment: . Performed By: #### C UA2, HCGUR, STRP3 #### [facility] [address] [place] [address] #### GASPC #### [facility] [place] [address] RBC, Urine 0 - 2 Normal 0-2 [facility] Comment on above: Result Comment: . Performed By: #### C UA2, HCGUR, STRP3 #### [facility] [address] [place] [address] #### GASPC #### [place] [address] [place] [address] Squamous Epithelial 6 - 10 Abnormal 3-5 [facility] Comment on above: Result Comment: . Performed By: #### C UA2, HCGUR, STRP3 #### [address] [place] [address] #### GASPC #### [place] [address] [address] [place], [place] VOLUME, URINE 12 ml Normal [facility] Comment on above: Result Comment: . Performed By: #### C UA2, HCGUR, STRP3 #### [address] [place] [address] #### GASPC #### [address] [place] [address] [place] [address] WBC, Urine 0 - 2 Normal 0-5 [facility] Comment on above: Result Comment: . Performed By: #### C UA2, HCGUR, STRP3 #### [facility] [address] [place] [address] #### GASPC #### [address] [address] [place] [address] Appearance (U) Clear Normal Clear [facility] Comment on above: Result Comment: . Performed By: #### C UA2, HCGUR, STRP3 #### [facility] [address] [place] [address] #### GASPC #### [place] [address] [address] [place] [id number] Bilirubin,Urine Negative Normal Negative [facility] Comment on above: Result Comment: . Performed By: #### C UA2, HCGUR, STRP3 #### [facility] [address] [place] [address] #### GASPC #### [place] [address] [address] [place], [place] Color (U) YELLOW Normal Lt. Yellow [facility] Comment on above: Result Comment: . Performed By: #### C UA2, HCGUR, STRP3 #### [address] [place] [address] #### GASPC #### [place] [address] [address] [place], [place] Glucose Ql (U) Normal Normal Normal (<70) [facility] Comment on above: Result Comment: . Performed By: #### C UA2, HCGUR, STRP3 #### [address] [place] [address] #### GASPC #### [place] [address] [address] [place], [place] Ketone,Urine 20 mg/dL Abnormal Negative [facility] Comment on above: Result Comment: . Performed By: #### C UA2, HCGUR, STRP3 #### [address] [place] [address] #### GASPC #### [place] [address] [address] [place], [place] Leukocytes,Urine Negative Normal Negative [facility] Comment on above: Result Comment: . Performed By: #### C UA2, HCGUR, STRP3 #### [facility] [address] [place] [address] #### GASPC #### [address] [place] [address] [place] [address] Nitrites,Urine Negative Normal Negative [facility] Comment on above: Result Comment: . Performed By: #### C UA2, HCGUR, STRP3 #### [facility] [address] [place] [address] #### GASPC #### [address] [address] [place] [address] Occult Blood,Urine Negative Normal Negative [facility] Comment on above: Result Comment: . Performed By: #### C UA2, HCGUR, STRP3 #### [address] [place] [address] #### GASPC #### [place] [address] [address] [place], [place] pH,Urine 6.0 Normal 5.0-8.0 [facility] Comment on above: Result Comment: . Performed By: #### C UA2, HCGUR, STRP3 #### [address] [place] [address] #### GASPC #### [address] Protein (U) [Mass/Vol] 20 mg/dL Abnormal Negative [facility] Comment on above: Result Comment: . Performed By: #### C UA2, HCGUR, STRP3 #### [address] [address] #### GASPC #### [place] [address] [address] [place], [place] Specific [place],Urine 1.019 Normal 1.005 - 1.030 [facility] Comment on above: Result Comment: . Performed By: #### C UA2, HCGUR, STRP3 #### [address] [place] [address] #### GASPC #### [address] [address] Urobilinogen,Urine Normal Normal Normal (0-1) [facility] Comment on above: Result Comment: . Performed By: #### C UA2, HCGUR, STRP3 #### [address] [place] [address] #### GASPC #### [address] [place] [address] [place] [address] HCG,Urine Qualon 06-12-2021 Beta HCG ( test) Ql (U) Negative Normal Negative [facility] Comment on above: Result Comment: Plea se note: Very dilute urine specimens, as indicated by a low specific gravity, may not contain telecommunications sales representative levels of hCG. If is still suspected, a first morning urine specimen should be collected 48 hours later and tested. is the most common reason for HCG in urine, although choriocarcinoma, hydatidiform mole, and certain nontropho- blastic malignancies also result in detectable urinary HCG levels. Sensitivity = 20mIU/mL. Performed By: #### C UA2, HCGUR, STRP3 #### [facility] [address] [place] [address] #### GASPC #### [facility] [address] [place] [address] SARS-CoV-2, Flu A/B and RSVo n 06-12-2021 SARS-CoV-2 (COVID-19) RNA MICHELLE+probe Ql (Unsp spec) SARS-CoV-2 --> Status: F DETECTED Flu A PCR --> Status: F Not Detected. Flu B PCR --> Status: F Not Detected. RSV PCR --> Status: F Not Detected. Expected Result: Not Detected _ Method: Real-time, RT-PCR This assay was developed by [employer] and distributed under an Emergency Use Authorization (EUA) granted by the FDA for the qualitative detection of nucleic acids from SARS-CoV-2, Influenza A, Influenza B, and Respiratory Syncytial Virus. Provider and patient fact sheets can be found at https://www.fda.gov/media/ 490818/download and https://www.fda.gov/media/ 365037/download. Expected Result: Not Detected _ Method: Real-time, RT-PCR This assay was developed by [employer] and distributed under an Emergency Use Authorization (EUA) granted by the FDA for the qualitative detection of nucleic acids from SARS-CoV-2, Influenza A, Influenza B, and Respiratory Syncytial Virus. Provider and patient fact sheets can be found at https://www.fda.gov/media/ 545695/download and https://www.fda.gov/media/ 760487/download. [facility] Comment on above: Performed By: #### C VFLR #### [facility] [address] [place] [address] , [address] Strep A Rapidon 06-12-2021 S. pyogenes Ag IA Ql (Unsp spec) see below Normal Negative [facility] Comment on above: Result Comment: NEGA TIVE (presumptive) for Group A Streptococcus antigen. Method: Immunochromatographic assay. Confirmatory testing to follow. Confirmatory testing performed at an additional cost. Performed By: #### C UA2, HCGUR, STRP3 #### [facility] [address] [place] [address] #### GASPC #### [facility] [address] [place] [address] ED NOTEon 12-23-2020 ED NOTE HNO ID: [id number] Author: Lia Yun RN Service: ? Author Type: Registered Nurse Type: ED Notes Filed: 12/23/2020 8:56 AM Note Text: Patient report to [facility]. Patient stable and assisted onto the cot. Patient cooperative. [facility] ED NOTE HNO ID: [id number] Author: Duglas Dumont RN Service: ? Author Type: Registered Nurse Type: ED Notes Filed: 12/23/2020 7:07 AM Note Text: ED security at doorway, patient relaxing at this time. PINK SLIP sent to central intake. [facility] ED NOTE HNO ID: [id number] Author: Duglas Dumont RN Service: ? Author Type: Registered Nurse Type: ED Notes Filed: 12/23/2020 6:37 AM Note Text: Maricel from was called to find out update, do not have an update at this time, said she was going to look into this [facility] ED NOTE HNO ID: [id number] Author: Duglas Dumont RN Service: ? Author Type: Registered Nurse Type: ED Notes Filed: 12/23/2020 6:29 AM Note Text: Patient up out of bed, yelling that she wants to go. Nurse trying to explain that she has been pink slipped and she cannot go. Security at doorway. Patient still yelling wants to talk to her heat and frost insulator. [facility] ED NOTE HNO ID: [id number] Author: Duglas Dumont RN Service: ? Author Type: Registered Nurse Type: ED Notes Filed: 12/23/2020 5:14 AM Note Text: Patient is getting agitated said that she was ready to go, has been here for 2 days, MD Jin talked to patient about the plan... denies want for food or drink [facility] ED NOTE HNO ID: [id number] Author: Duglas Dumont RN Service: ? Author Type: Registered Nurse Type: ED Notes Filed: 12/23/2020 4:48 AM Note Text: Central intake called for update, no new update at this time. [facility] HNO [facility]: [id number] Author: Duglas Dumont RN Service: ? Author Type: Registered Nurse Type: ED Notes Filed: 12/23/2020 4:23 AM Note Text: Patient states she is not going to get transfer or she is going to get her heat and frost insulator patient is angry, says she has done everything she has to do here, ready to go to [place] and get her stuff [facility] ED NOTE HNO ID: [id number] Author: Duglas Dumont RN Service: ? Author Type: Registered Nurse Type: ED Notes Filed: 12/23/2020 4:24 AM Note Text: Spoke with central intake, at this time did not have an update [facility] ED PROV NOTEon 12-23-2020 ED PROV NOTE HNO ID: [id number] Author: Liliam Jin MD Service: ? Author Type: Physician Type: ED Provider Notes Filed: 12/23/2020 6:58 AM Note Text: Patient was signed out to me at 11 PM. AP does feel the patient needs admitted. They are working on a bed but no bed is available at this time. Patient slept intermittent times throughout the night but sometimes did become agitated but was able to calm down on her own. Patient was accepted at [facility]. Patient will be transferred in stable condition Liliam Jin MD 12/23/20 0649 Liliam Jin MD 12/23/20 0658 [facility] Acetaminophenon 12-22-2020 Acetaminophen [Mass/Vol] ug/mL Low 10-30 [facility] Comment on above: Result Comment: Toxi c > 150 ug/mL 4 hours post ingestion The Melia Palmer nomogram can be used to estimate the probability of hepatotoxicity via the relationship of plasma acetaminophen concentration to the post ingestion interval. (Robby. Pediatrics. 1975. 55:871 to 876 and Melia et al. Arch Evp Strategy Med. 1981. 141:380 to 385). Reference ranges and high/low indicator flags are provided as general guidelines only. The treating physician must determine appropriate target levels/dosing based on the specific clinical situation. Performed By: #### C BCDIF, CMP, ACETM, ALCO, SALI ####[facility] [id number] [place] [address] CBC and Differentialon 12-22 Abs Baso <0.03 Normal <0.11 [facility] Comment on above: Performed By: #### C BCDIF, CMP, ACETM, ALCO, SALI ####[place] [address] Abs Eosin <0.03 Normal <0.46 [facility] Comment on above: Performed By: #### C BCDIF, CMP, ACETM, ALCO, SALI ####[place] [address] Abs [place] 0.66 k/uL Normal <0.87 [facility] Comment on above: Performed By: #### C BCDIF, CMP, ACETM, ALCO, SALI ####[place] [address] Abs Neut 8.70 k/uL High 1.45-7.50 [facility] Comment on above: Performed By: #### C BCDIF, CMP, ACETM, ALCO, SALI ####[place] [address] Absolute nRBC <0.01 Normal <0.01 [facility] Comment on above: Performed By: #### C BCDIF, CMP, ACETM, ALCO, SALI ####[place] [address] Basophils/100 WBC (Bld) 0.2 % Normal [facility] Comment on above: Performed By: #### C BCDIF, CMP, ACETM, ALCO, SALI ####[facility] [id number] [place] [address] DTYPE Auto Diff Normal [facility] [facility] Comment on above: Performed By: #### C BCDIF, CMP, ACETM, ALCO, SALI ####[place] [address] Eosinophils/100 WBC (Bld) 0.1 % Normal [facility] Comment on above: Performed By: #### C BCDIF, CMP, ACETM, ALCO, SALI ####[place] [address] Erythrocyte distribution width (RBC) [Ratio] 13.2 % Normal 11.5-15.0 [facility] Comment on above: Performed By: #### C BCDIF, CMP, ACETM, ALCO, SALI ####[place] [address] Hematocrit (Bld) [Volume fraction] 40.6 % Normal 36.0-46.0 [facility] Comment on above: Performed By: #### C BCDIF, CMP, ACETM, ALCO, SALI ####[place] [address] Hemoglobin (Bld) [Mass/Vol] 13.7 g/dL Normal 11.5-15.5 [facility] Comment on above: Performed By: #### C BCDIF, CMP, ACETM, ALCO, SALI ####[place] [address] Lymphocytes (Bld) [#/Vol] 1.25 10*3/uL Normal 1.00-4.00 [facility] Comment on above: Performed By: #### C BCDIF, CMP, ACETM, ALCO, SALI ####[place] [address] Lymphocytes/100 WBC (Bld) 11.7 % Normal [facility] Comment on above: Performed By: #### C BCDIF, CMP, ACETM, ALCO, SALI ####[address] MCH 33.3 pG Normal 26.0-34.0 [facility] Comment on above: Performed By: #### C BCDIF, CMP, ACETM, ALCO, SALI ####[facility] [address] [place] [address] MCHC (RBC) [Mass/Vol] 33.7 g/dL Normal 30.5-36.0 [facility] Comment on above: Performed By: #### C BCDIF, CMP, ACETM, ALCO, SALI ####[facility] [address] [place] [address] MCV (RBC) [Entitic vol] 98.8 fL Normal 80.0-100.0 [facility] Comment on above: Performed By: #### C BCDIF, CMP, ACETM, ALCO, SALI ####[facility] [address] [place] [address] Monocytes/100 WBC (Bld) 6.2 % Normal [facility] Comment on above: Performed By: #### C BCDIF, CMP, ACETM, ALCO, SALI ####[facility] [address] [place] [address] Neutrophils/100 WBC (Bld) 81.8 % Normal [facility] Comment on above: Performed By: #### C BCDIF, CMP, ACETM, ALCO, SALI ####[facility] [address] [place] [address] NRBCs 0.0 /100 WBC Normal 0 [facility] Comment on above: Performed By: #### C BCDIF, CMP, ACETM, ALCO, SALI ####[facility] [address] [place] [address] Platelet mean volume (Bld) [Entitic vol] 9.5 fL Normal 9.0-12.7 [facility] Comment on above: Performed By: #### C BCDIF, CMP, ACETM, ALCO, SALI ####[facility] [address] [place] [address] Platelets (Bld) [#/Vol] 246 10*3/uL Normal 150-400 [facility] Comment on above: Performed By: #### C BCDIF, CMP, ACETM, ALCO, SALI ####[facility] [address] [place] [address] RBC (Bld) [#/Vol] 4.11 10*6/uL Normal 3.90-5.20 [facility] Comment on above: Performed By: #### C BCDIF, CMP, ACETM, ALCO, SALI ####[facility] [address] [place] [address] WBC (Bld) [#/Vol] 10.64 10*3/uL Normal 3.70-11.00 [facility] Comment on above: Performed By: #### C BCDIF, CMP, ACETM, ALCO, SALI ####[facility] [address] [place] [address] Comp Metabolic Panelon 12-22 Albumin [Mass/Vol] 4.5 g/dL Normal 3.9-4.9 [facility] Comment on above: Performed By: #### C BCDIF, CMP, ACETM, ALCO, SALI ####[facility] [address] [place] [address] ALP [Catalytic activity/Vol] 63 U/L Normal 34-123 [facility] Comment on above: Performed By: #### C BCDIF, CMP, ACETM, ALCO, SALI ####[place] [address] ALT [Catalytic activity/Vol] 26 U/L Normal 7-38 [facility] Comment on above: Performed By: #### C BCDIF, CMP, ACETM, ALCO, SALI ####[facility] [address] [place] [address] Anion gap [Moles/Vol] 14 mmol/L Normal 9-18 [facility] Comment on above: Performed By: #### C BCDIF, CMP, ACETM, ALCO, SALI ####[facility] [address] [place] [address] AST [Catalytic activity/Vol] 23 U/L Normal 13-35 [facility] Comment on above: Performed By: #### C BCDIF, CMP, ACETM, ALCO, SALI ####[facility] [address] [place] [address] Bilirubin [Mass/Vol] 0.5 mg/dL Normal 0.2-1.3 [facility] Comment on above: Performed By: #### C BCDIF, CMP, ACETM, ALCO, SALI ####[facility] [address] [place] [address] Calcium [Mass/Vol] 9.7 mg/dL Normal 8.5-10.2 [facility] Comment on above: Performed By: #### C BCDIF, CMP, ACETM, ALCO, SALI ####[facility] [address] [place] [address] Chloride [Moles/Vol] 105 mmol/L Normal 97-105 [facility] Comment on above: Performed By: #### C BCDIF, CMP, ACETM, ALCO, SALI ####[facility] [address] [place] [address] CO2 [Moles/Vol] 21 mmol/L Low 22-30 [facility] Comment on above: Performed By: #### C BCDIF, CMP, ACETM, ALCO, SALI ####[facility] [address] [place] [address] Creatinine [Mass/Vol] 0.69 mg/dL Normal 0.58-0.96 [facility] Comment on above: Performed By: #### C BCDIF, CMP, ACETM, ALCO, SALI ####[facility] [address] [place] [address] eGFR- Amer. >60 Normal [facility] Comment on above: Performed By: #### C BCDIF, CMP, ACETM, ALCO, SALI ####[facility] [address] [place] [address] eGFR-All Other Races >60 Normal [facility] Comment on above: Result Comment: eGFR (Estimated GFR) Units of measure: mL/min/1.73 meters squared eGFR is derived from the reexpressed MDRD Study equation using the following parameters: serum creatinine, age, gender and race. The creatinine assay has been calibrated to be traceable to IDMS. An eGFR <60 mL/min/1.73m2 for >3 months is consistent with chronic kidney disease. Refer to KDOQI guidelines for clinical interpretation. In patients with unstable renal function, e.g. those with acute kidney injury, the eGFR may not accurately reflect actual GFR. Performed By: #### C BCDIF, CMP, ACETM, ALCO, SALI ####[facility] [address] [place] [address] Glucose [Mass/Vol] 110 mg/dL High 74-99 [facility] Comment on above: Result Comment: The [place] [employer] (ADA) provides guidance for cutoff values for fasting glucose and random glucose. The ADA defines fasting as no caloric intake for at least 8 hours. Fasting plasma glucose results between 100 to 125 mg/dL indicate increased risk for diabetes (prediabetes). Fasting plasma glucose results greater than or equal to 126 mg/dL meet the criteria for diagnosis of diabetes. In the absence of unequivocal hyperglycemia, results should be confirmed by repeat testing. In a patient with classic symptoms of hyperglycemia or hyperglycemic crisis, random plasma glucose results greater than or equal to 200 mg/dL meet the criteria for diagnosis of diabetes. Reference: Standards of Medical Care in Diabetes 2016, [place] [employer]. Diabetes Care. 2016.39(Suppl 1). Performed By: #### C BCDIF, CMP, ACETM, ALCO, SALI ####[facility] [address] [place], [place] [address] Potassium [Moles/Vol] 3.5 mmol/L Low 3.7-5.1 [facility] Comment on above: Performed By: #### C BCDIF, CMP, ACETM, ALCO, SALI ####[facility] [address] [place] [address] Protein [Mass/Vol] 7.3 g/dL Normal 6.3-8.0 [facility] Comment on above: Performed By: #### C BCDIF, CMP, ACETM, ALCO, SALI ####[facility] [address] Sodium [Moles/Vol] 140 mmol/L Normal 136-144 [facility] Comment on above: Performed By: #### C BCDIF, CMP, ACETM, ALCO, SALI ####[facility] [address] [place] [address] Urea nitrogen [Mass/Vol] 6 mg/dL Low 7-21 [facility] Comment on above: Performed By: #### C BCDIF, CMP, ACETM, ALCO, SALI ####[facility] [address] [place] [phone] ED NOTEon 12-22-2020 ED NOTE HNO ID: [id number] Author: Duglas Dumont RN Service: ? Author Type: Registered Nurse Type: ED Notes Filed: 12/23/2020 4:30 AM Note Text: After restraint removed noticed bruising to patient bilateral wrist area, around same area that restrained would have been. restraint were not to tight as patient was able to slip out of them. [facility] ED NOTE HNO ID: [id number] Author: Duglas Dumont RN Service: ? Author Type: Registered Nurse Type: ED Notes Filed: 12/22/2020 8:10 PM Note Text: Patient out of restraints at this time. Patient wanted to be out of restraints, patient took off bilateral arm restraints herself. Garrett MARTINEZ called nurse over, talked to patient about being calm and she asked if bilateral leg restraints could come off, took bilateral leg restraints off. Patient resting in bed, cooperative at this time. [facility] ED NOTE HNO ID: [id number] Author: Summer Abarca RN Service: ? Author Type: Registered Nurse Type: ED Notes Filed: 12/22/2020 8:03 PM Note Text: Report off to duglas uriostegui. Pt in restraints still w sitter at bs doing every 15 min checks on her. Duglas aware that pt was medicated and placed in restraints at 1705. Made aware that we need new doctor order if still in restraints at 4 hrs from then. Pt was medicated at 1703. w help from inhouse oma and yane sitter holding her down w me medicating. [facility] ED NOTE HNO ID: [id number] Author: Duglas Dumont RN Service: ? Author Type: Registered Nurse Type: ED Notes Filed: 12/22/2020 7:49 PM Note Text: .Assumed care of patient, received report from off going nurse. Patient in 4 point violent restraints at this time, resting in bed. PCNA Garrett at bedside, 1:1 sitter [facility] ED NOTE HNO ID: [id number] Author: Summer Abarca RN Service: ? Author Type: Registered Nurse Type: ED Notes Filed: 12/22/2020 8:11 PM Note Text: Pt still appears agitated and wants to get up- pt at this time in restraints for safety . In house pd outside door, sitter yane in doorway . Pt in nad. Remains on cm. Vss.. restraints not too tight or causing pain. [facility] ED NOTE HNO ID: [id number] Author: Summer Abarca RN Service: ? Author Type: Registered Nurse Type: ED Notes Filed: 12/22/2020 8:09 PM Note Text: elise cespedes rn calling restraint hotline for me. Pt had dr. Gimenez At for behavioral restraints orders. Pt was running out of room and trying to get out thru the decon room door. Pt was screaming and yelling and for her own safety and the safety of others was put back in room 8 by in-house pd oma, myself and yane final application reviewer. I had already had the meds drawn up and ready to go on the counter since order and held bc pt had calmed down the last time I went in to give them at 1500. Pt now wouldn't come down or listen to either of the three of us or the physician. Once on bed and medicated still trying to get up and restraints applied checking each limb for good pulses and not too tight. reheat furnace operator to room, colton Waters rn and Marie tate NOM -all aware and down outside door of room 8 . (as well as 2 more security). Pt at no time co pain anywhere and jalil well. Yane tech instructed that we need to offer bathrm , food or drink breaks and to cont check all 4 limbs for redness or pain. [facility] ED NOTE HNO ID: [id number] Author: Reddy Gimenez MD Service: ? Author Type: Physician Type: ED Notes Filed: 12/22/2020 10:30 PM Note Text: ED Attending Continuation of Care Note December 22, 2020 4:56 PM Polina Giron was endorsed to me by Dr. Nieves. The patient initially presented to the ED for: Ms. Giron is a 30-year-old female who had a suicide attempt yesterday by cutting her neck and arms and today became agitated when her boyfriend reportedly complained she was stealing money from him and police were called. She initially required ketamine and then was more agitated and required IV Haldol and Ativan and was escalating again when I arrived, but she deescalated in discussion with central intake. Signout note reviewed Diagnostics were reviewed. Powell findings: UDS amphetamines, THC, K 3.5, medically cleared New Physical Exam findings: no distress Clinical Course: Ms. Giron is a 30-year-old female with recent suicide attempt and impulsivity and agitation. She is medically clear. We are awaiting AP/central intake input. Plan: 17:15 - Discussed need for hospitalization, unfortunately Ms. Giron became agitated, attempted to elope, required manual hold and restraints, haldol/ativan 2 mg IV each (repeat dose from earlier). 20:15 out of restraints, sleeping, medically clear, awaiting placement. Reddy Gimenez MD [facility] ED NOTE HNO ID: [id number] Author: Summer Abarca RN Service: ? Author Type: Registered Nurse Type: ED Notes Filed: 12/22/2020 3:34 PM Note Text: [facility] ED NOTE HNO ID: [id number] Author: PHIL Regalado Service: ? Author Type: Clinical Sound Mixer Type: ED Notes Filed: 12/22/2020 3:13 PM Note Text: Cordless phone removed from pt.'s room [facility] ED NOTE HNO ID: [id number] Author: PHIL Regalado Service: ? Author Type: Clinical Sound Mixer Type: ED Notes Filed: 12/22/2020 3:17 PM Note Text: Pt on the phone with intake at this time. [facility] ED NOTE HNO ID: [id number] Author: Summer Abarca RN Service: ? Author Type: Registered Nurse Type: ED Notes Filed: 12/22/2020 3:36 PM Note Text: Went to give these meds, haldol and ativan because pt was starting to get angry again and wanting to leave. [facility] ED NOTE HNO ID: [id number] Author: PHIL Regalado Service: ? Author Type: Clinical Sound Mixer Type: ED Notes Filed: 12/22/2020 2:50 PM Note Text: Pt is refusing to keep blood pressure cuff on. Pt is getting agitated. [facility] ED NOTE HNO ID: [id number] Author: PHIL Regalado Service: ? Author Type: Clinical Sound Mixer Type: ED Notes Filed: 12/22/2020 12:29 PM Note Text: Pt stated. Would like for her belongings be removed from boyfriends house. [facility] ED NOTE HNO ID: [id number] Author: Summer Abarca RN Service: ? Author Type: Registered Nurse Type: ED Notes Filed: 12/22/2020 11:45 AM Note Text: Pt medicated w 200 ketamine. Sander Setter. Pt at this time still appears anxious/ agitated and mistrustful. Pt repeatedly sts I was cooperative on scene, I admitted to using marijuana. Why am I here. Why did I get made to be numb when I was telling the truth about using the marijuana.? pt at this time keeps asking is cj here. I dont want to see cj. He better not come in here. pt yelling out I told the fucking copper roller handler printing. I dont fucking care. I better not catch a charge. I was honest. I told them I use marijuana. pt sts hx suicidal. I have been suicidal. I was today. sts this is first time I did anything to hurt myself . [facility] ED NOTE HNO ID: [id number] Author: Alcira Perkins RN Service: ? Author Type: Registered Nurse Type: ED Notes Filed: 12/22/2020 10:52 AM Note Text: Bed: ED-08 Expected date: 12/22/20 Expected time: 10:30 AM Means of arrival: Monty /EMS Comments: MONTY [facility] ED PROV NOTEon 12-22-2020 ED PROV NOTE HNO ID: [id number] Author: Cherise Nieves MD Service: ? Author Type: Physician Type: ED Provider Notes Filed: 12/22/2020 1:35 PM Note Text: ED Provider Note Patient Name: Polina Giron SERVICE DATE: 12/22/20 History Patient presents with: Psychiatric Problem: ketamine provided on scene 200--pt walked to [facility]. and then when heard she had to come in got very angry, swinging at everyone, per didnt make contact. pt cut self on wrists and neck. per pt was upset w bf accusing him of using her credit card. pt has psych hx Patient with h/o ADHD and Bipolar disorder who presents with cuts to anterior throat and wrists bilaterally from yesterday. 's department was called to her resident today after she got into a verbal altercation with her S.O.. She accused him of stealing her visa. She was very agitated pacing. 's deputy saw scabbed superficial lacerations to her anterior neck and wrist and she admitted to cutting herself yesterday. She reports being suicidal after another verbal altercation with her baby's dad. She stopped and said it wasn't worth it. She denies being suicidal now. She is clearly under the influence of either alcohol, drugs, or both. She is very angry that she is here. She was given ketamine by squad. PAST MEDICAL HISTORY Diagnosis Date - Abnormal Pap smear of cervix 05/2013 [facility] - ADHD (attention deficit hyperactivity disorder) - Bipolar disorder (HCC) - Gonorrhea 04/2013 - Obesity - Old disruption of anterior cruciate ligament ACL tear - [facility] - PAST MEDICAL HISTORY OF 04/24/09 normal color vision - Ruptured lumbar disc - Tobacco use PAST SURGICAL HISTORY Procedure Laterality Date - APPENDECTOMY 09/04/07 - ARTHROTOMY,OPEN REPAIR MENISCUS 2006 Open knee reconstruction, ACL left - SECTION HX 2013 FAMILY HISTORY Problem Relation Age of Onset - Hypertension Mother - Psychiatry Father Bipolar - Diabetes Maternal Grandmother - other (Lung cancer) Maternal Grandfather LUNG CANCER - Diabetes Maternal Aunt Social History Tobacco Use - Smoking status: Current Every Day Smoker Packs/day: 0.50 Years: 9.00 Pack years: 4.50 Types: Cigarettes Last attempt to quit: 07/11/2011 Years since quittin.4 - Smokeless tobacco: Never Used Substance and Sexual Activity - Alcohol use: No - Drug use: No - Sexual activity: Yes Partners: Male control/protection: Injection ALLERGIES Allergen Reactions - Ibuprofen GI Upset - Tylenol #3 [Codeine] GI Upset - Vicodin [Hydrocodon* GI Upset Review of Systems Constitutional: Negative for chills and fever. HENT: Negative for congestion, rhinorrhea, sinus pressure, sinus pain, sneezing and sore throat. Eyes: Negative for visual disturbance. Respiratory: Negative for cough and shortness of breath. Cardiovascular: Negative for chest pain, palpitations and leg swelling. Gastrointestinal: Negative for abdominal pain, diarrhea, nausea and vomiting. Genitourinary: Negative for difficulty urinating, dysuria, flank pain and hematuria. Musculoskeletal: Negative for back pain, myalgias and neck stiffness. Skin: Negative for pallor. Neurological: Negative for dizziness, weakness, light-headedness and headaches. Psychiatric/Behavioral: Positive for agitation, behavioral problems, self-injury and suicidal ideas. Negative for confusion. The patient is hyperactive. All other systems reviewed and are negative. Physical Exam BP 140/93 Pulse 120 Resp 16 Wt 150 lb (68.0kg) SpO2 93% LMP 05/14/2013 O2 Therapy: Room Air Physical Exam Vitals and nursing note reviewed. Constitutional: General: She is not in acute distress. Appearance: She is well-developed. HENT: Head: Normocephalic and atraumatic. Right Ear: External ear normal. Left Ear: External ear normal. Nose: Nose normal. Eyes: Conjunctiva/sclera: Conjunctivae normal. Pupils: Pupils are equal, round, and reactive to light. Cardiovascular: Rate and Rhythm: Normal rate and regular rhythm. Heart sounds: Normal heart sounds. No murmur heard. Pulmonary: Effort: Pulmonary effort is normal. No respiratory distress. Breath sounds: Normal breath sounds. No stridor. No wheezing or rales. Chest: Chest wall: No tenderness. Abdominal: General: Bowel sounds are normal. There is no distension. Palpations: Abdomen is soft. Tenderness: There is no abdominal tenderness. There is no rebound. Musculoskeletal: General: No tenderness. Normal range of motion. Cervical back: Normal range of motion and neck supple. Lymphadenopathy: Cervical: No cervical adenopathy. Skin: General: Skin is warm and dry. Findings: No erythema or rash. Neurological: Mental Status: She is alert and oriented to person, place, and time. Cranial Nerves: No cranial nerve deficit. Deep Tendon Reflexes: Reflexes are normal and symmetric. Psych (more content not included)... Normal [facility] Ethanolon 12-22-2020 Ethanol [Mass/Vol] mg/dL Normal <11 [facility] Comment on above: Performed By: #### C BCDIF, CMP, ACETM, ALCO, SALI ####[facility] [address] [place] [address] Expedited [id number] 12-23-19 21 SARS-CoV-2 (COVID-19) RNA MICHELLE+probe Ql (Unsp spec) UPPER RESPIRATORY TRACT SWAB Normal [facility] Comment on above: Performed By: #### E XCOVD ####[facility] [address] [place] [address] SARS-CoV-2 (COVID-19) RNA MICHELLE+probe Ql (Unsp spec) Negative for COVID19 (SARS CoV2) by RT-PCR or equivalent method. Normal Negative for COVID19 (SARS CoV2) by RT-PCR or equivalent method. [facility] Comment on above: Result Comment: This test has been authorized by FDA under an Emergency Use Authorization (EUA). Performed By: #### E XCOVD ####[facility] [address] [place] [address] Salicylateon 12-22-2020 Salicylate <0.3 Low 3.0-30.0 [facility] Comment on above: Result Comment: The therapeutic range varies and has been reported to be 3.0 to 10.0 mg/dL for anti pyretic/analgesic conditions and 15.0 to 30.0 mg/dL for anti inflammatory/rheumatic fever conditions. Ranges published by the instrument advertising copywriter. Reference ranges and high/low indicator flags are provided as general guidelines only. The treating physician must determine appropriate target levels/dosing based on the specific clinical situation. Performed By: #### C BCDIF, CMP, ACETM, ALCO, SALI ####[facility] [address] [place] [address] Toxicology Screen,Uron 12-22 Amphetamines, Urine Positive Critically abnormal Negative [facility] Comment on above: Result Comment: Cuto ff threshold at 1000 ng/mL. Performed By: #### U TOX2, UA ####[facility] [address] [place] [address] Barbiturates, Urine Negative Normal Negative [facility] Comment on above: Result Comment: Cuto ff threshold at 200 ng/mL. Performed By: #### U TOX2, UA ####[facility] [address] [place] [address] Benzodiazepines, Ur Negative Normal Negative [facility] Comment on above: Result Comment: Cuto ff threshold at 200 ng/mL. Performed By: #### U TOX2, UA ####[facility] [address] [place] [address] Cannabinoids, Urine Positive Critically abnormal Negative [facility] Comment on above: Result Comment: Cuto ff threshold at 50 ng/mL. Performed By: #### U TOX2, UA ####[facility] [address] [place] [address] Cocaine, Urine Negative Normal Negative [facility] Comment on above: Result Comment: Cuto ff threshold at 300 ng/mL. Performed By: #### U TOX2, UA ####[facility] [address] [place] [address] Opiates, Urine Negative Normal Negative [facility] Comment on above: Result Comment: Cuto ff threshold at 300 ng/mL. Performed By: #### U TOX2, UA ####[facility] [facility] [address] [place] [address] Oxycodone, Urine Negative Normal Negative [facility] Comment on above: Result Comment: Cuto ff threshold at 100 ng/mL. Comment: Immunoassay screen only. Cross reactivity with other substances can occur with immunoassay screening. Detection of any drug(s) in this urine toxicology panel is presumptive only. These tests are for medical purposes only and should not be used for compliance monitoring, legal, or forensic use. Samples should be within normal physiological conditions (e.g. pH). This assay does not include adulteration/specimen validity testing. In clinical settings, confirmatory testing is at the practitioner's discretion [1]. If clinically indicated, confirmation by high specificity, quantitative methodology, which includes adulteration/specimen validity testing, may be requested on the same specimen through Client Services ([phone]) if contacted within 48 hours of initial testing. [1]Substance Abuse and Mental Health Services Administration (2012). Clinical Drug Testing in Primary Care Technical Assistance Publication Series 32. Department of Health and Human Services, [place], p.10. Performed By: #### U TOX2, UA ####[facility] [address] [place] [address] Phencyclidine, Urine Negative Normal Negative [facility] Comment on above: Result Comment: Cuto ff threshold at 25 ng/mL. Performed By: #### U TOX2, UA ####[facility] [address] [place] [address] Urinalysison 12-22-2020 Bilirubin, Urine Negative Normal Negative [facility] Comment on above: Performed By: #### U TOX2, UA ####[facility] [address] [place] [address] Clarity (U) Clear Normal Clear [facility] Comment on above: Performed By: #### U TOX2, UA ####[facility] [address] [place] [address] Color (U) Yellow Normal Yellow [facility] Comment on above: Performed By: #### U TOX2, UA ####[facility] [address] [place] [address] Glucose Ql (U) Negative Normal Negative [facility] Comment on above: Performed By: #### U TOX2, UA ####[facility] [address] [place] [address] Hemoglobin/Blood,Ur Negative Normal Negative [facility] Comment on above: Performed By: #### U TOX2, UA ####[facility] [address] [place] [address] Ketones Ql (U) 1+ Critically abnormal Negative [facility] Comment on above: Performed By: #### U TOX2, UA ####[facility] [address] [place] [address] Leukest Negative Normal Negative [facility] Comment on above: Performed By: #### U TOX2, UA ####[facility] [address] [place] [address] Nitrite Ql (U) Negative Normal Negative [facility] Comment on above: Performed By: #### U TOX2, UA ####[facility] [address] [place] [address] pH (U) 6.0 [pH] Normal 5.0-8.0 [facility] Comment on above: Performed By: #### U TOX2, UA ####[facility] [address] [address] Protein, Urine Negative Normal Negative [facility] Comment on above: Performed By: #### U TOX2, UA ####[facility] [address] Specific [place], Ur 1.020 Normal 1.005-1.030 [facility] Comment on above: Performed By: #### U TOX2, UA ####[facility] [address] Urobilinogen Qn (U) 0.2 {[place]'U}/dL Normal 0.2-1.0 [facility] Comment on above: Performed By: #### U TOX2, UA ####[facility] [address] Serum Beta HCG Psychiatric//KRISTY/ME D/SL/LOon 12-21-2020 Serum Beta HCG Psychiatric//KRISTY/MED/SL/LO Negative Normal Negative [facility] Comment on above: Result Comment: Fals e positives and false negatives are rare but have been described. Clinical correlation of the findings is recommended. Performed By: #### B ETAMM ####[facility] [address] [place], [place] [id number] [facility] POLINA [facility]IRON ([id number]) 1990 F Date Time Provider Department 08/04/20 NO PCP INTMWS During your visit today, we recorded the following information about you: Rosangela Andrade RN 08/04/2020 9:04 AM Signed Patient reports she has hives on upper back of right arm. Red. Sore. Burning. No blisters. A patch approx 2-[address] long. No where else on the body. Reports she quit taking Amox 875 mg after 6 days (for swollen lymph node in left neck) prescribed by ENT. Reports she spoke with ENT about this yesterday who advised her to take benadryl. She took 1 benadryl, did not help, did not take anymore. Reports the amox also gave her diarrhea, nausea, vomited once (states because took AB without food in stomach). Reports throat is not sore, ears are fine, teeth are fine. Only concern today is the patch of hives on upper back of right arm, that is itchy. Patient reports her pcp is in [place]. Agreeable to contact pcp for advise. Allergies As of Date: 08/04/2020 Noted Allergy Reaction IBUPROFEN 10/18/2018 8 - GI Upset TYLENOL #3 (CODEINE) 06/01/2007 8 - GI Upset VICODIN (HYDROCODONE-ACETAMINOPHE* 06/01/2007 8 - GI Upset Date Reviewed: 07/30/2020 Reviewed by: Maryuri Aguiar LPN - Fully Assessed Reason for Visit: Hives [56] Prescriptions as of 08/04/2020 Sig: QUETIAPINE 25 MG TABLET DICYCLOMINE 10 MG CAPSULE ONDANSETRON HCL 4 MG TABLET Take 4 mg by mouth. GABAPENTIN 100 MG CAPSULE 600 mg. twice daily ALBUTEROL SULFATE HFA 90 MCG/* inhale 2 puffs by mouth every* CYCLOBENZAPRINE 10 MG TABLET Take 1 tablet by mouth three * LAMOTRIGINE 25 MG TABLET Take 100 mg by mouth once shahid* SERTRALINE 100 MG TABLET Take 150 mg by mouth. DEPO-PROVERA INTRAMUSC. Inject intramuscularly. Problem List As Of Date 08/04/2020 Noted Resolved SPRAIN OF ANKLE NOS [S93.409A] 04/29/2005 PATELLAR TENDINITIS [M76.50] 04/29/2005 Bipolar disorder, unspecified [F31.9] 06/27/2006 More... CUTANEOUS ACTINOMYCOSIS [A42.89] 12/13/2007 VIRAL WARTS NOS [B07.9] 06/27/2008 Skin Tags 03/12/2009 Acne Vulgaris: Inflammatory/Comedonal Grade III*09/08/2009 Cervicalgia [M54.2] 12/21/2009 Kyphosis (Acquired) (Postural) [M40.00] 12/21/2009 First trimester bleeding [O20.9] 07/11/2013 More... Nausea/vomiting in [O21.9] 07/11/2013 More... Tobacco use in [O99.330] 07/11/2013 More... Leaking of urine [R32] 07/11/2013 More... History of abnormal Pap smear [Z87.898] 07/11/2013 More... Patient requested diagnostic testing [Z01.89] 07/11/2013 More... Tobacco use [Z72.0] ADHD (attention deficit hyperactivity disorder)* Bipolar disorder (HCC) [F31.9] Gonorrhea [A54.9] 04/05/2013 Obesity [E66.9] Encounter Status:Closed by Rosangela ANDRADE RN on 08/04/20 [facility] Tele[facility] (UCWSTR) -- POLINA GIRON ([id number]) 1990 F Date Time Provider Department 08/03/20 [facility] During your visit today, we recorded the following information about you: Avani Conner HANLEY 08/03/2020 10:55 AM Signed Patient calling was in urgent care 07/30/[address] Lima called in rx for Amox 875 mg one tablet twice daily. Patient said she has rash and is itching. Asking if rx should be changed to something else? [facility]. Please advise Ar Lima MD 08/03/2020 11:37 AM Signed I assume amoxicillin was prescribed by ENT. It would be soto to hold the medication if having itching and rash, but please check with the prescribing physician for further recommendations for medication change or evaluation. Gilma Landin [employer] ARTIST TECHNICAL 08/03/2020 12:13 PM Signed Pt notified of provider message. Will call ENT dr. Gilma Landin LPN Allergies As of Date: 08/03/2020 Noted Allergy Reaction IBUPROFEN 10/18/2018 8 - GI Upset TYLENOL #3 (CODEINE) 06/01/2007 8 - GI Upset VICODIN (HYDROCODONE-ACETAMINOPHE* 06/01/2007 8 - GI Upset Date Reviewed: 07/30/2020 Reviewed by: Maryuri Aguiar LPN - Fully Assessed Reason for Visit: reaction to antibiotic [Other] Prescriptions as of 08/03/2020 Sig: QUETIAPINE 25 MG TABLET DICYCLOMINE 10 MG CAPSULE ONDANSETRON HCL 4 MG TABLET Take 4 mg by mouth. GABAPENTIN 100 MG CAPSULE 600 mg. twice daily ALBUTEROL SULFATE HFA 90 MCG/* inhale 2 puffs by mouth every* CYCLOBENZAPRINE 10 MG TABLET Take 1 tablet by mouth three * LAMOTRIGINE 25 MG TABLET Take 100 mg by mouth once shahid* SERTRALINE 100 MG TABLET Take 150 mg by mouth. DEPO-PROVERA INTRAMUSC. Inject intramuscularly. Problem List As Of Date 08/03/2020 Noted Resolved SPRAIN OF ANKLE NOS [S93.409A] 04/29/2005 PATELLAR TENDINITIS [M76.50] 04/29/2005 Bipolar disorder, unspecified [F31.9] 06/27/2006 More... CUTANEOUS ACTINOMYCOSIS [A42.89] 12/13/2007 VIRAL WARTS NOS [B07.9] 06/27/2008 Skin Tags 03/12/2009 Acne Vulgaris: Inflammatory/Comedonal Grade III*09/08/2009 Cervicalgia [M54.2] 12/21/2009 Kyphosis (Acquired) (Postural) [M40.00] 12/21/2009 First trimester bleeding [O20.9] 07/11/2013 More... Nausea/vomiting in [O21.9] 07/11/2013 More... Tobacco use in [O99.330] 07/11/2013 More... Leaking of urine [R32] 07/11/2013 More... History of abnormal Pap smear [Z87.898] 07/11/2013 More... Patient requested diagnostic testing [Z01.89] 07/11/2013 More... Tobacco use [Z72.0] ADHD (attention deficit hyperactivity disorder)* Bipolar disorder ([facility]) [F31.9] Gonorrhea [A54.9] 04/05/2013 Obesity [E66.9] Encounter Status:Closed by GILMA LANDIN LPN on 08/03/20 Normal [facility] CNOVon 07-30-2020 CNOV Office Visit (UCWSTR ) -- POLINA GIRON ([id number]) 1990 F Date Time Provider Department 07/30/20 3:30 PM [facility] During your visit today, we recorded the following information about you: Temperature Pulse Respiration Blood pressure 98.6 degrees 98/minute 18/minute 102/72 Weight 92.8 kg Ar Lima MD 07/30/2020 4:34 PM Signed Patient presents with: swollen sore left side of neck: x 2 days HPI: Neck pain: Duration: 2 days. Location: Neck below the jaw on the left side Character: Tender, Becoming more painful Radiation: No. Aggravating: Touching eating Relieving: Tried warm compress Pain relievers: Tylenol, ibuprofen, Associated: swelling Pertinent negatives: Denies fever, tooth pain, prior similar problem. PAST MEDICAL HISTORY Diagnosis Date - Abnormal Pap smear of cervix 05/2013 PLANNED PARENTHOOD - ADHD (attention deficit hyperactivity disorder) - Bipolar disorder ([facility]) - Gonorrhea 04/2013 - Obesity - Old disruption of anterior cruciate ligament ACL tear - PMH - PAST MEDICAL HISTORY OF 04/24/09 normal color vision - Ruptured lumbar disc - Tobacco use MEDICATIONS: QUEtiapine (SEROQUEL) 25 mg tablet ondansetron (ZOFRAN) 4 mg tablet Take 4 mg by mouth. gabapentin (NEURONTIN) 100 mg capsule 600 mg. twice daily albuterol HFA (PROVENTIL HFA, VENTOLIN HFA) 90 mcg/actuation inhaler inhale 2 puffs by mouth every 4 hours if needed for wheezing or shortness of breath cyclobenzaprine (FLEXERIL) 10 mg tablet Take 1 tablet by mouth three times daily as needed. lamoTRIgine (LAMICTAL) 25 mg tablet Take 100 mg by mouth once daily. sertraline (ZOLOFT) 100 mg tablet Take 150 mg by mouth. MEDROXYPROGESTERONE ACETATE (DEPO-PROVERA INTRAMUSC.) Inject intramuscularly. dicyclomine (BENTYL) 10 mg capsule ALLERGIES: ALLERGIES Allergen Reactions - Ibuprofen GI Upset - Tylenol #3 [Codeine] GI Upset - Vicodin [Hydrocodon* GI Upset VITALS: BP 102/72 Pulse 98 Temp 37 ?C (98.6 ?F) (Tympanic) Resp 18 Wt 92.8 kg (204 lb 9.6 oz) LMP 05/14/2013 BMI 33.02 kg/m? PHYSICAL EXAM: GEN: pleasant, no acute distress, alert HEENT: PERRL, EOMI, MMM, left lower teeth are non-tender. No palpable masses or purulent drainage from the submandibular duct NECK: Supple. Tender 5cm swelling medial to the left mandible, no lymphadenopathy, no thyromegaly HEART: regular rate, regular rhythm, no murmurs LUNGS: clear to auscultation, no wheezes or crackles, no increased WOB EXT: no clubbing, no cyanosis, no edema ASSESSMENT/PLAN: 1. Sialoadenitis of submandibular gland - ICD9: 527.2, ICD10: K11.20 Duct obstruction vs infection. - CONSULT TO ENT - established patient with [facility], facilitated appointment this afternoon. 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 GABAPENTIN 100 MG CAPSULE 600 mg. twice daily ALBUTEROL SULFATE HFA 90 MCG/* inhale 2 puffs by mouth every* CYCLOBENZAPRINE 10 MG TABLET Take 1 tablet by mouth three * LAMOTRIGINE 25 MG TABLET Take 100 mg by mouth once shahid* SERTRALINE 100 MG TABLET Take 150 mg by mouth. DEPO-PROVERA INTRAMUSC. Inject intramuscularly. DICYCLOMINE 10 MG CAPSULE Medication notes this encounter LAMOTRIGINE 25 MG TABLET >> Maryuri Aguiar LPN 07/30/2020 3:44 PM >> MARYURI AGUIAR LPN [facility] Jul 30, 2020 3:44 PM Taking Problem List As Of Date 07/30/2020 Noted Resolved SPRAIN OF ANKLE NOS [S93.409A] 04/29/2005 PATELLAR TENDINITIS [M76.50] 04/29/2005 Bipolar disorder, unspecified [F31.9] 06/27/2006 More... CUTANEOUS ACTINOMYCOSIS [A42.89] 12/13/2007 VIRAL WARTS NOS [B07.9] 06/27/2008 Skin Tags 03/12/2009 Acne Vulgaris: Inflammatory/Comedonal Grade III*09/08/2009 Cervicalgia [M54.2] 12/21/2009 Kyphosis (Acquired) (Postural) [M40.00] 12/21/2009 First trimester bleeding [O20.9] 07/11/2013 More... Nausea/vomiting in [O21.9] 07/11/2013 More... Tobacco use in [O99.330] 07/11/2013 More... Leaking of urine [R32] 07/11/2013 More... History of abnormal Pap smear [Z87.898] 07/11/2013 More... Patient requested diagnostic testing [Z01.89] 07/11/2013 More... Tobacco use [Z72.0] ADHD (attention deficit hyperactivity disorder)* Bipolar disorder (HCC) [F31.9] Gonorrhea [A54.9] (more content not included)... [facility] Initial Visit (Gastroenterol ogy)on 05-14-2020 Initial Visit (Gastroenterology) Diagnoses/Problems Assessed Nausea with vomiting (787.01) (R11.2) Alternating constipation and diarrhea (787.99) (R19.8) Intermittent generalized abdominal pain (789.07) (R10.84) Current smoker (305.1) (F17.200) 1/2 PPD Orders Intermittent generalized abdominal pain Start: Dicyclomine HCl - 20 MG Oral Tablet; 1 TAB 30 MINUTES BEFORE MEALS NEEDED FOR BOWEL SPASM Rx By: Lacey Javed; Dispense: 0 Days ; #:90 Tablet; Refill: 2; For: Intermittent generalized abdominal pain; DERREK = N; Sent To: [facility] #30; Last Updated By: [email or web address]; 05/14/2020 1:58:28 PM Nausea with vomiting C Reactive Protein, Serum; Status:Active; Requested for:14May2020; Perform:Lab Services - Lab To Draw (Blood Test); Due:12Aug2020;Ordered; For:Nausea with vomiting; Ordered By:Lacey Javed; CELIAC DISEASE SEROLOGY PANEL; Status:Active; Requested for:14May2020; Perform:Lab Services - Lab To Draw (Blood Test); Due:12Aug2020;Ordered; For:Nausea with vomiting; Ordered By:Lacey Javed; Complete Blood Count + Differential; Status:Active; Requested for:14May2020; Perform:Lab Services - Lab To Draw (Blood Test); Due:12Aug2020;Ordered; For:Nausea with vomiting; Ordered By:Lacey Javed; Comprehensive Metabolic Panel; Status:Active; Requested for:14May2020; Perform:Lab Services - Lab To Draw (Blood Test); Due:12Aug2020;Ordered; For:Nausea with vomiting; Ordered By:Lacey Javed; TSH WITH REFLEX TO FREE T4 IF ABNORMAL; Status:Active; Requested for:14May2020; Perform:Lab Services - Lab To Draw (Blood Test); Due:12Aug2020;Ordered; For:Nausea with vomiting; Ordered By:Lacey Javed; Ultrasound Gallbladder; Status:Hold For - Scheduling; Requested for:14May2020; Perform:[facility]; Due:80Xys1919;Ordered; For:Nausea with vomiting; Ordered By:Lacey Javed; Radiologist to Determine Optimal Study : Y What are the patient's signs and symptoms? : RUQ abdominal pain, nausea wih vomiting Patient Discussion/Summary 1. Outside records were reviewed. 2. Obtain gallbladder ultrasound. Obtain CBC, CMP, CRP, TSH, and celiac serology. 3. Increase dicyclomine 20 mg 3 times daily for bowel spasm. 4. Increase MiraLAX twice daily and begin using one heaping tablespoon of Benefiber in 8 ounces of water daily by mixing and drinking quickly. This product is jbib-nso-kebmzne. 5. It is medically recommended that you stop smoking. There are several options available to you to assist in quitting. You can try yguq-zqq-hbrdlav nicotine patches or gum. You can also speak with your primary care physician about medication options. 6. Follow up to review results. Discussed endoscopic evaluation pending the above. Chief Complaint An interactive audio and video telecommunication system which permits real time communications between the patient (at the originating site) and provider (at the distant site) was utilized to provide this telehealth service. Verbal consent was requested and obtained from POLINA IGRON on this date, 05/14/2020 01:30 PM , for a telehealth visit. GERD and IBS History of Present [id number]-whcn-kzo female spoken to over telephone regarding a 5+ year history of irritable bowel syndrome and nauseousness with vomiting. Symptoms have not worsened in severity and occur intermittently. She complains of stomach pains described as sharp and cramp-like on the right and left sides of her abdomen, both upper and lower. Pains last for a few hours at a time and occur randomly yet also occur postprandially. This is associated with nausea with occasional vomiting. Most recent emesis was last week without hematemesis or coffee-ground appearance. Zofran and Phenergan have not offered alleviation. She had previously been on omeprazole 40 mg chronically with no change in symptoms and discontinued this a few weeks ago. She denies acid reflux, indigestion, or dysphagia. She has increased her fruits and vegetables and has stopped eating certain junk food. Appetite remains good. She denies weight loss. She is currently taking MiraLAX daily which allows her to have a bowel movement every 1 to 3 days which alternates with intermittent diarrhea. There is no hematochezia or melena. Stomach pains and nausea seem to increase with constipation. Defecation does not alleviate her pain. She was given dicyclomine 10 mg twice daily and does not believe this is made much of a difference. Review of Systems Const: Reports fatigue but denies fever and weight loss. CV: Denies chest pain, pacemaker, palpitations and valvular heart disease. Resp: Denies cough, sleep apnea, SOB and snoring. GI: Denies symptoms other than stated above. Musculo: Denies joint pain and muscle pain. Skin: Denies hives and rash. Neuro: Denies seizures and stroke. Psych: Reports Bipolar I, anxiety and depression. Endocrine: Denies intolerance to cold, hot flashes and impaired glucose tolerance. Joanthan/Lymph: Denies anemia, blood transfusions, chemotherapy, enlarged lymph nodes and radiation treatment of any kind. Active Problems Problems Nausea with vomiting (787.01) (R11.2) Past Medical History Problems History of Bipolar 1 disorder (296.7) (F31.9) History of anxiety (V11.8) (Z86.59) History of chronic fatigue (V13.89) (Z87.898) History of depression (V11.8) (Z86.59) History of gastritis (V12.79) (Z87.19) History of irritable bowel syndrome (V12.79) (Z87.19) Surgical History Problems History of Achilles tendon surgery History of Appendectomy History of section Family History Mother Family history of Alive and well Father Family history of Alive and well Other Denied: Family history of malignant neoplasm of colon Social History Problems Caffeine use (V49.89) (Z78.9) [place], [place] Current smoker (305.1) (F17.200) 1/2 PPD Denies alcohol consumption (V49.89) (Z78.9) Does not have living will Denied: History of tattoo No illicit drug use Allergies Medication codeine Recorded By: Iona Fraser; 05/14/2020 1:13:34 PM [place] TABS Recorded By: Iona Fraser; 05/14/2020 1:13:34 PM Current Meds Medication NameInstruction ARIPiprazole 15 MG Oral Tablet Cyclobenzaprine HCl - 10 MG Oral Tablet Dicyclomine HCl - 10 MG Oral Capsule Gabapentin 300 MG Oral Capsule Gabapentin 600 MG Oral Tablet lamoTRIgine 150 MG Oral Tablet QUEtiapine Fumarate 25 MG Oral Tablet Sertraline HCl - 100 MG Oral Tablet Vitals Vital Signs Recorded: [id number] 01:13PM Height5 ft 6 in Dbpnhm891 lb BMI Pfjarnqpwe39.9 BSA Calculated2.04 Physical Exam Patient is alert and oriented throughout telephone call without conversational dyspnea or cough. Time Time Spent With Patient: 13.5 minutes of which greater than 50 percent was spent counseling and or coordinating care. Signatures Electronically signed by : Lacey Javed PA-C; May 14 2020 2:08PM EST (Author) Normal Your Style Unzipped PROGRESSon 01-14-2019 PROGRESS HNO ID: [id number] Author: Jeni Pimentel Service: ? Author Type: Nurse Practitioner Type: Progress Notes Filed: 01/14/2019 12:49 PM Note Text: Patient no show for PST. Webb in Scheduling notified and will notify Dr. Collier's office. [facility] CNOVon 10-18-2018 CNOV Office Visit (GILDAAGAK ) -- DEBBIEPOLINA LUNDBERG ([id number]) 1990 F Date Time Provider Department 10/18/18 2:45 PM RAVIN COLLIER During your visit today, we recorded the following information about you: Pulse Respiration Blood pressure Weight 88/minute 18/minute 148/80 88 kg Height 1.676 m Ravin Collier MD 10/18/2018 3:46 PM Signed NEUROSURGERY CONSULT NOTE Ravin Collier MD Date of visit: October 17, 2018 Patient Name: Ms.Brittney Adames Debbieivette Date of : 1990 Current Age: [age] year old Sex: female MRN/E# [id number] Chief Complaint: Patient presents with: Back Pain: Continuous pack pain since fall in 2018. HISTORY OF PRESENT ILLNESS : Ms. Giron presents to the office today as a new patient with imaging for evaluation of low back pain. She describes a recent history of low back pain after a fall on ice in May 2018. Since her fall she has had severe low back pain into the right leg, anterior thigh, lateral calf with numbness in her foot. She has not had improvement with physical therapy, pain management, or injections. She presents today for evaluation and plan of care. Symptoms: low back pain into the right leg PREVIOUS CONSERVATIVE TREATMENTS: Physical therapy, pain management, injections PREVIOUS SURGERY: None PAIN EVALUATION 10/18/2018 Pain Level: 8 Pain Location: Back-Lower Description: Radiating radiates down right lower extremity. radiates down right lower extremity. Duration Amount of Time: 15 Duration Units: Months Frequency: Continuous Intervention: Medication;Therapeutic techniques-CPRP;Cold;Heat PAST MEDICAL HISTORY Diagnosis Date - Abnormal Pap smear of cervix 05/2013 PLANNED PARENTHOOD - ADHD (attention deficit hyperactivity disorder) - Bipolar disorder (HCC) - Gonorrhea 04/2013 - Obesity - Old disruption of anterior cruciate ligament ACL tear - PMH - PAST MEDICAL HISTORY OF 04/24/09 normal color vision - Tobacco use PAST SURGICAL HISTORY Procedure Laterality Date - APPENDECTOMY 09/04/07 - ARTHROTOMY,OPEN REPAIR MENISCUS 2006 Open knee reconstruction, ACL left - SECTION HX 2013 FAMILY HISTORY Problem Relation Age of Onset - Hypertension Mother - Psychiatry Father Bipolar - Diabetes Maternal Grandmother - other (Lung cancer) Maternal Grandfather LUNG CANCER - Diabetes Maternal Aunt ALLERGIES Allergen Reactions - Ibuprofen GI Upset - Tylenol #3 [Codeine] GI Upset - Vicodin [Hydrocodon* GI Upset Current Outpatient Medications: ondansetron (ZOFRAN) 4 mg tablet Take 4 mg by mouth. Disp: Rfl: gabapentin (NEURONTIN) 100 mg capsule 600 mg. twice daily Disp: Rfl: 0 albuterol HFA (VENTOLIN HFA) 90 mcg/actuation inhaler Inhale 2 Puffs as instructed every 4 hours as needed for Wheezing/Shortness of Breath. Disp: 18 g Rfl: 3 cyclobenzaprine (FLEXERIL) 10 mg tablet Take 1 tablet by mouth three times daily as needed. Disp: 270 tablet Rfl: 0 lamoTRIgine (LAMICTAL) 25 mg tablet Take 100 mg by mouth once daily. Disp: Rfl: dextroamphetamine-amphetam ine (ADDERALL) 20 mg tablet Take 20 mg by mouth twice daily. Disp: Rfl: ARIPiprazole (ABILIFY) 30 mg tablet Take 15 mg by mouth once daily. Disp: Rfl: sertraline (ZOLOFT) 100 mg tablet Take 150 mg by mouth. Disp: Rfl: ZOLPIDEM TARTRATE (AMBIEN ORAL) Take 10 mg by mouth at bedtime as needed. Disp: Rfl: MEDROXYPROGESTERONE ACETATE (DEPO-PROVERA INTRAMUSC.) Inject intramuscularly. Disp: Rfl: albuterol HFA (PROVENTIL HFA, VENTOLIN HFA) 90 mcg/actuation inhaler inhale 2 puffs by mouth every 4 hours if needed for wheezing or shortness of breath Disp: Rfl: 0 diclofenac potassium (CATAFLAM) 50 mg tablet Take 1 tablet by mouth three times daily as needed. (Patient not taking: Reported on 10/18/2018 ) Disp: 50 tablet Rfl: 1 docusate sodium (COLACE) 100 mg capsule Take 1 capsule by mouth twice daily. (Patient not taking: Reported on 05/08/2018 ) Disp: 60 capsule Rfl: 3 No current facility-administered medications for this visit. REVIEW OF SYSTEMS Review of Systems Constitutional: Positive for chills and fever. Negative for diaphoresis. Respiratory: Positive for wheezing. Negative for cough and shortness of breath. Gastrointestinal: Positive for diarrhea. Negative for constipation and nausea. Genitourinary: Negative for difficulty urinating, frequency and urgency. Musculoskeletal: Positive for back pain. Negative for gait problem and neck pain. Neurological: Positive for numbness. Negative for dizziness and weakness. OBJECTIVE: BP 148/80 Pulse 88 Resp 18 Ht 5' 6 (1.68m) Wt 194 lb (88.0kg) BMI 31.33 kg/(m2). Physical Exam Constitutional: she is oriented to person, place, and time and well-developed, well-nourished, and in no distress. Pulmonary/Chest: Effort normal. Neurological: she is alert and oriented to person, place, and time. Reflex Scores: Patellar reflexes are 2+ on the right side and 2+ on the left side. Skin: Skin is warm and dry. Neurological Exam Mental Status Alert. Motor Normal muscle bulk throughout. Normal muscle tone. Right Left Hip flexion 5 5 Knee flexion 5 5 Knee extension 4 5 Plantarflexion 5 5 Dorsiflexion 4 5 Positive right straight leg raise Sensory Sensation is intact to light touch, pinprick, vibration and proprioception in all four extremities. Reflexes Right Left Patellar 2+ 2+ Data Review IMAGING STUDIES: MRI of the lumbar spine performed on 08/20/2018 These images were reviewed and demonstrate disc displacement at L3-4 which does not result in significant narrowing. However, L4-5, she has a very large disc herniation eccentric to the right side causing severe narrowing. Personal review of medical records: I reviewed with the patient, history, physical exam, the images and the chart. 1. Lumbar disc herniation I had a lengthy conversation with the patient regarding her disc herniation and recommended that she undergo a L4-5 microdiscectomy on the right side.The procedure, surgical technique, risks, benefits, and alternatives have been discussed with the patient in great detail. The risks of the surgical procedure include but are not limited to , coma, paralysis, infection, need for additional surgery, failure of the patient's symptoms to resolve, worsening of the patient's symptoms, future problems related to the initial condition, neurological injury, cerebrospinal fluid leak, vascular injury, failure of any implanted materials, delayed neurological problems, medical complications (such as deep venous thrombosis, pulmonary embolism, pneumonia, urinary tract infection, stroke, blindness, myocardial infarction, etc.) have all been reviewed. The patient will think about these options and get back to me regarding a final decision. All of the patient's questions have been discussed at length. Ravin Collier MD Referring Provider: SON DELAROSA) [[id number]] Allergies As of Date: 10/18/2018 Noted Allergy Reaction IBUPROFEN 10/18/2018 8 - GI Upset TYLENOL #3 (CODEINE) 06/01/2007 8 - GI Upset VICODIN (HYDROCODONE-ACETAMINOPHE* 06/01/2007 8 - GI Upset Date Reviewed: 10/18/2018 Reviewed by: Ravin Collier - Fully Assessed Reason for Visit: Back Pain [12] Cmt: Continuous pack pain since fall in 2018. Primary Visit Diagnosis:Lumbar disc herniation [M51.26] Prescriptions as of 10/18/2018 Sig: ONDANSETRON HCL 4 MG TABLET Take 4 mg by mouth. GABAPENTIN 100 MG CAPSULE 600 mg. twice daily ALBUTEROL SULFATE HFA 90 MCG/* Inhale 2 Puffs as instructed * CYCLOBENZAPRINE 10 MG TABLET Take 1 tablet by mouth three * LAMOTRIGINE 25 MG TABLET Take 100 mg by mouth once shahid* DEXTROAMPHETAMINE-AMPHETAM INE* Take 20 mg by mouth twice shahid* ARIPIPRAZOLE 30 MG TABLET Take 15 mg by mouth once maria del rosario* SERTRALINE 100 MG TABLET Take 150 mg by mouth. AMBIEN ORAL Take 10 mg by mouth at bedtim* DEPO-PROVERA INTRAMUSC. Inject intramuscularly. ALBUTEROL SULFATE HFA 90 MCG/* inhale 2 puffs by mouth every* DICLOFENAC POTASSIUM 50 MG TA* Take 1 tablet by mouth three * Patient not taking: Reported on 10/18/2018 DOCUSATE SODIUM 100 MG CAPSULE Take 1 capsule by mouth twice* Patient not taking: Reported on 05/08/2018 Problem List As Of Date 10/18/2018 Noted Resolved SPRAIN OF ANKLE NOS [S93.409A] INVALID FOR* PATELLAR TENDINITIS [M76.50] INVALID FOR* Bipolar disorder, unspecified [F31.9] INVALID FOR* More... CUTANEOUS ACTINOMYCOSIS [A42.89] INVALID FOR* VIRAL WARTS NOS [B07.9] INVALID FOR* Skin Tags INVALID FOR* Acne Vulgaris: Inflammatory/Comedonal Grade III*INVALID FOR* Cervicalgia [M54.2] INVALID FOR* Kyphosis (Acquired) (Postural) [M40.00] INVALID FOR* First trimester bleeding [O20.9] INVALID FOR* More... Nausea/vomiting in [O21.9] INVALID FOR* More... Tobacco use in [O99.330] INVALID FOR* More... Leaking of urine [R32] INVALID FOR* More... History of abnormal Pap smear [Z87.898] INVALID FOR* More... Patient requested diagnostic testing [Z01.89] INVALID FOR* More... Tobacco use [Z72.0] ADHD (attention deficit hyperactivity disorder)* Bipolar disorder (HCC) [F31.9] Gonorrhea [A54.9] INVALID FOR* Obesity [E66.9] Letter Text Encounter Status:Closed by RAVIN COLLIER MD on 10/18/18 [facility] PROGRESSon 10-18-2018 PROGRESS HNO ID: [id number] Author: Ravin Collier Service: ? Author Type: Physician Type: Progress Notes Filed: 10/18/2018 3:46 PM Note Text: NEUROSURGERY CONSULT NOTE Ravin Collier MD Date of visit: October 17, 2018 Patient Name: Ms.Brittney Rosangela Giron Date of : 1990 Current Age: [age] year old Sex: female MRN/E# [id number] Chief Complaint: Patient presents with: Back Pain: Continuous pack pain since fall in 2017. HISTORY OF PRESENT ILLNESS : Ms. Giron presents to the office today as a new patient with imaging for evaluation of low back pain. She describes a recent history of low back pain after a fall on ice in May 2018. Since her fall she has had severe low back pain into the right leg, anterior thigh, lateral calf with numbness in her foot. She has not had improvement with physical therapy, pain management, or injections. She presents today for evaluation and plan of care. Symptoms: low back pain into the right leg PREVIOUS CONSERVATIVE TREATMENTS: Physical therapy, pain management, injections PREVIOUS SURGERY: None PAIN EVALUATION 10/18/2018 Pain Level: 8 Pain Location: Back-Lower Description: Radiating radiates down right lower extremity. radiates down right lower extremity. Duration Amount of Time: 15 Duration Units: Months Frequency: Continuous Intervention: Medication;Therapeutic techniques-CPRP;Cold;Heat PAST MEDICAL HISTORY Diagnosis Date - Abnormal Pap smear of cervix 05/2013 PLANNED PARENTHOOD - ADHD (attention deficit hyperactivity disorder) - Bipolar disorder (HCC) - Gonorrhea 04/2013 - Obesity - Old disruption of anterior cruciate ligament ACL tear - PMH - PAST MEDICAL HISTORY OF 04/24/09 normal color vision - Tobacco use PAST SURGICAL HISTORY Procedure Laterality Date - APPENDECTOMY 09/04/07 - ARTHROTOMY,OPEN REPAIR MENISCUS 2006 Open knee reconstruction, ACL left - SECTION HX 2013 FAMILY HISTORY Problem Relation Age of Onset - Hypertension Mother - Psychiatry Father Bipolar - Diabetes Maternal Grandmother - other (Lung cancer) Maternal Grandfather LUNG CANCER - Diabetes Maternal Aunt ALLERGIES Allergen Reactions - Ibuprofen GI Upset - Tylenol #3 [Codeine] GI Upset - Vicodin [Hydrocodon* GI Upset Current Outpatient Medications: ondansetron (ZOFRAN) 4 mg tablet Take 4 mg by mouth. Disp: Rfl: gabapentin (NEURONTIN) 100 mg capsule 600 mg. twice daily Disp: Rfl: 0 albuterol HFA (VENTOLIN HFA) 90 mcg/actuation inhaler Inhale 2 Puffs as instructed every 4 hours as needed for Wheezing/Shortness of Breath. Disp: 18 g Rfl: 3 cyclobenzaprine (FLEXERIL) 10 mg tablet Take 1 tablet by mouth three times daily as needed. Disp: 270 tablet Rfl: 0 lamoTRIgine (LAMICTAL) 25 mg tablet Take 100 mg by mouth once daily. Disp: Rfl: dextroamphetamine-amphetam ine (ADDERALL) 20 mg tablet Take 20 mg by mouth twice daily. Disp: Rfl: ARIPiprazole (ABILIFY) 30 mg tablet Take 15 mg by mouth once daily. Disp: Rfl: sertraline (ZOLOFT) 100 mg tablet Take 150 mg by mouth. Disp: Rfl: ZOLPIDEM TARTRATE (AMBIEN ORAL) Take 10 mg by mouth at bedtime as needed. Disp: Rfl: MEDROXYPROGESTERONE ACETATE (DEPO-PROVERA INTRAMUSC.) Inject intramuscularly. Disp: Rfl: albuterol HFA (PROVENTIL HFA, VENTOLIN HFA) 90 mcg/actuation inhaler inhale 2 puffs by mouth every 4 hours if needed for wheezing or shortness of breath Disp: Rfl: 0 diclofenac potassium (CATAFLAM) 50 mg tablet Take 1 tablet by mouth three times daily as needed. (Patient not taking: Reported on 10/18/2018 ) Disp: 50 tablet Rfl: 1 docusate sodium (COLACE) 100 mg capsule Take 1 capsule by mouth twice daily. (Patient not taking: Reported on 05/08/2018 ) Disp: 60 capsule Rfl: 3 No current facility-administered medications for this visit. REVIEW OF SYSTEMS Review of Systems Constitutional: Positive for chills and fever. Negative for diaphoresis. Respiratory: Positive for wheezing. Negative for cough and shortness of breath. Gastrointestinal: Positive for diarrhea. Negative for constipation and nausea. Genitourinary: Negative for difficulty urinating, frequency and urgency. Musculoskeletal: Positive for back pain. Negative for gait problem and neck pain. Neurological: Positive for numbness. Negative for dizziness and weakness. OBJECTIVE: BP 148/80 Pulse 88 Resp 18 Ht 5' 6 (1.68m) Wt 194 lb (88.0kg) BMI 31.33 kg/(m2). Physical Exam Constitutional: she is oriented to person, place, and time and well-developed, well-nourished, and in no distress. Pulmonary/Chest: Effort normal. Neurological: she is alert and oriented to person, place, and time. Reflex Scores: Patellar reflexes are 2+ on the right side and 2+ on the left side. Skin: Skin is warm and dry. Neurological Exam Mental Status Alert. Motor Normal muscle bulk throughout. Normal muscle tone. Right Left Hip flexion 5 5 Knee flexion 5 5 Knee extension 4 5 Plantarflexion 5 5 Dorsiflexion 4 5 Positive right straight leg raise Sensory Sensation is intact to light touch, pinprick, vibration and proprioception in all four extremities. Reflexes Right Left Patellar 2+ 2+ Data Review IMAGING STUDIES: MRI of the lumbar spine performed on 08/20/2018 These images were reviewed and demonstrate disc displacement at L3-4 which does not result in significant narrowing. However, L4-5, she has a very large disc herniation eccentric to the right side causing severe narrowing. Personal review of medical records: I reviewed with the patient, history, physical exam, the images and the chart. 1. Lumbar disc herniation I had a lengthy conversation with the patient regarding her disc herniation and recommended that she undergo a L4-5 microdiscectomy on the right side.The procedure, surgical technique, risks, benefits, and alternatives have been discussed with the patient in great detail. The risks of the surgical procedure include but are not limited to , coma, paralysis, infection, need for additional surgery, failure of the patient's symptoms to resolve, worsening of the patient's symptoms, future problems related to the initial condition, neurological injury, cerebrospinal fluid leak, vascular injury, failure of any implanted materials, delayed neurological problems, medical complications (such as deep venous thrombosis, pulmonary embolism, pneumonia, urinary tract infection, stroke, blindness, myocardial infarction, etc.) have all been reviewed. The patient will think about these options and get back to me regarding a final decision. All of the patient's questions have been discussed at length. Ravin Collier MD [facility] CNOVon 09-04-2018 CNOV Office Visit (AGPOB1 ) -- POLINA GIRON ([id number]) 1990 F Date Time Provider Department 09/04/18 10:15 AM OBED SAMSON AGPOB1 During your visit today, we recorded the following information about you: Respiration Weight Height 16/minute 98 kg 1.676 m Alena Bauer CMA 09/04/2018 11:13 AM Signed REVIEW OF SYSTEMS: GENERAL: Well developed, well nourished. No acute distress PAIN: Chronic Pain Lumbar spine CARDIOVASCULAR: Negative for chest pain, leg swelling and palpations. MSK: Negative for joint pain, swelling, back pain, muscle pain. SKIN: Negative for lesions, rash, itching, metal sensitivity NEURO: Negative for seizure, trauma, numbness/tingling of extremities. ENDOCRINE: Negative for Diabetes Type 1 and Type 2 HEMATOLOGY: Negative for excessive bleeding, clots, bleeding disorders. Obed Samson MD, MD 09/04/2018 11:13 AM Signed HPI: Polina Giron is a 28 year old female who presents today for low back . She reports the pain continues to radiate into the right leg and in to the ankle. She has significant difficulty ambulate in, his difficulty for her to stand up straight or leaning to the right without causing significant pain into the right leg. She has attempted physical therapy ?2?has difficulty getting to the office because of being single car family. She notes that nothing is helping her pain, she is getting increasingly frustrated. She does note that she's had injection attempts in the past at [facility] without significant improvement?the pain was not this significant at that time however. Currently taking ibuprofen, motrin, flexeril, diclofenac without significant improvement. Using gabapentin as well from [facility]-but not making any difference @ 100 mg TID. PAST MEDICAL HISTORY Diagnosis Date - Abnormal Pap smear of cervix 05/2013 PLANNED PARENTHOOD - ADHD (attention deficit hyperactivity disorder) - Bipolar disorder (HCC) - Gonorrhea 04/2013 - Obesity - Old disruption of anterior cruciate ligament ACL tear - PMH - PAST MEDICAL HISTORY OF 04/24/09 normal color vision - Tobacco use PAST SURGICAL HISTORY Procedure Laterality Date - APPENDECTOMY 09/04/07 - ARTHROTOMY,OPEN REPAIR MENISCUS 2007 Open knee reconstruction, ACL left - SECTION HX 2013 Social History Socioeconomic History Marital status: Single Spouse name: Not on file Number of children: Not on file Years of education: 12 Highest education level: Not on file Social Needs Financial resource strain: Not on file Food insecurity - worry: Not on file Food insecurity - inability: Not on file Transportation needs - medical: Not on file Transportation needs - non-medical: Not on file Occupational History Occupation: UNEMPLOYED Tobacco Use Smoking status: Current Every Day Smoker Packs/day: 0.50 Years: 9.00 Pack years: 4.5 Types: Cigarettes Quit date: 07/11/2011 Years since quittin.1 Smokeless tobacco: Never Used Substance and Sexual Activity Alcohol use: No Drug use: No Sexual activity: Yes Partners: Male control/protection: Injection Other Topics Concerns: Not on file Social History Narrative Not on file Current Outpatient Medications: diclofenac potassium (CATAFLAM) 50 mg tablet Take 1 tablet by mouth three times daily as needed. cyclobenzaprine (FLEXERIL) 10 mg tablet Take 1 tablet by mouth three times daily as needed. dextroamphetamine-amphetam ine (ADDERALL) 20 mg tablet Take 20 mg by mouth twice daily. ARIPiprazole (ABILIFY) 30 mg tablet Take 15 mg by mouth once daily. sertraline (ZOLOFT) 100 mg tablet Take 150 mg by mouth. ZOLPIDEM TARTRATE (AMBIEN ORAL) Take by mouth. MEDROXYPROGESTERONE ACETATE (DEPO-PROVERA INTRAMUSC.) Inject intramuscularly. albuterol HFA (VENTOLIN HFA) 90 mcg/actuation inhaler Inhale 2 Puffs as instructed every 4 hours as needed for Wheezing/Shortness of Breath. docusate sodium (COLACE) 100 mg capsule Take 1 capsule by mouth twice daily. (Patient not taking: Reported on 05/08/2018 ) lamoTRIgine (LAMICTAL) 25 mg tablet Take 25 mg by mouth twice daily. No current facility-administered medications for this visit. ALLERGIES Allergen Reactions - Tylenol #3 [Codeine] GI Upset - Vicodin [Hydrocodon* GI Upset Resp 16 Ht 5' 6 (1.68m) Wt 216 lb (98.0kg) BMI 34.88 kg/(m2). Exam: Gen: Pt is a well appearing, overweight female in NAD Head: is normocephalic/autraumatic Eyes: EOMI, sclera Clear Psych:Oriented x3. Tearful throughout exam, expresses frustration at ongoing pain, its effect on her day-to-day function Gait: Walks in a slouched forward position Lumbar spine: Range of motion is restricted, patient unable to stand fully erect, leans leftward?with right-sided leaning causes pain in the buttock and down the right leg. Reviewed report from [facility] showing disc extrusion at L4-5 with compression on the nerve root ASSESSMENT: (M54.41, G89.29) Chronic right-sided low back pain with right-sided sciatica PLAN: ? Discussed diagnosis and treatment options. ? Again encouraged attendance at physical therapy. ? Patient is not interested in surgical consultation at this time. ? After discussion?elected to set up referral to Misha/Cassandra pain management at [facility]. With hopes of injection at the L4-5 nerve root. ? Patient is to call back if not improving and wishes surgical consultation. ? Discussed gabapentin as pain management?she is taking 100 mg of this 3 times a day only for the last couple of days. Has not noted a change. We discussed possibility of 300 mg 3 times a day, but if not having much improvement would not continue the medicine. She will call back to discuss this if she increases the dose she was given by the emergency department, and is interested in refill. Greater than 25 minutes was spent in care of this patient over half in counseling Return if symptoms worsen or fail to improve. Obed Samson MD Referring Provider: OBED SAMSON [[id number]] Allergies As of Date: 09/04/2018 Noted Allergy Reaction TYLENOL #3 (CODEINE) 06/01/2007 8 - GI Upset VICODIN (HYDROCODONE-ACETAMINOPHE* 06/01/2007 8 - GI Upset Date Reviewed: 09/04/2018 Reviewed by: Obed Samson MD - Fully Assessed Reason for Visit: Follow Up [171] Cmt: Lumbar spine Visit Diagnosis:Chronic right-sided low back pain with right-sided sciatica [M54.41, G89.29] Order(s):MRI LUMBAR SPINE WO IVCON [[id number]] Order #: [id number] CONSULT TO PAIN MGT ANESTHESIA [19990910] Order #: [id number]: 1 Prescriptions as of 09/04/2018 Sig: DICLOFENAC POTASSIUM 50 MG TA* Take 1 tablet by mouth three * CYCLOBENZAPRINE 10 MG TABLET Take 1 tablet by mouth three * DEXTROAMPHETAMINE-AMPHETAM INE* Take 20 mg by mouth twice shahid* ARIPIPRAZOLE 30 MG TABLET Take 15 mg by mouth once maria del rosario* SERTRALINE 100 MG TABLET Take 150 mg by mouth. AMBIEN ORAL Take by mouth. DEPO-PROVERA INTRAMUSC. Inject intramuscularly. ALBUTEROL SULFATE HFA 90 MCG/* Inhale 2 Puffs as instructed * DOCUSATE SODIUM 100 MG CAPSULE Take 1 capsule by mouth twice* Patient not taking: Reported on 05/08/2018 LAMOTRIGINE 25 MG TABLET Take 25 mg by mouth twice shahid* Problem List As Of Date 09/04/2018 Noted Resolved SPRAIN OF ANKLE NOS [S93.409A] INVALID FOR* PATELLAR TENDINITIS [M76.50] INVALID FOR* Bipolar disorder, unspecified [F31.9] INVALID FOR* More... CUTANEOUS ACTINOMYCOSIS [A42.89] INVALID FOR* VIRAL WARTS NOS [B07.9] INVALID FOR* Skin Tags INVALID FOR* Acne Vulgaris: Inflammatory/Comedonal Grade III*INVALID FOR* Cervicalgia [M54.2] INVALID FOR* Kyphosis (Acquired) (Postural) [M40.00] INVALID FOR* First trimester bleeding [O20.9] INVALID FOR* More... Nausea/vomiting in [O21.9] INVALID FOR* More... Tobacco use in [O99.330] INVALID FOR* More... Leaking of urine [R32] INVALID FOR* More... History of abnormal Pap smear [Z87.898] INVALID FOR* More... Patient requested diagnostic testing [Z01.89] INVALID FOR* More... Tobacco use [Z72.0] ADHD (attention deficit hyperactivity disorder)* Bipolar disorder (HCC) [F31.9] Gonorrhea [A54.9] INVALID FOR* Obesity [E66.9] Disposition: Return if symptoms worsen or fail to improve. Follow-up and Disposition History Recorded Encounter Status:Closed by OBED SAMSON MD on 09/04/18 [facility] PROGRESSon 09-04-2018 PROGRESS HNO ID: [id number] Author: Obed Samson MD Service: ? Author Type: Physician Type: Progress Notes Filed: 09/04/2018 11:13 AM Note Text: HPI: Polina Giron is a 28 year old female who presents today for low back . She reports the pain continues to radiate into the right leg and in to the ankle. She has significant difficulty ambulate in, his difficulty for her to stand up straight or leaning to the right without causing significant pain into the right leg. She has attempted physical therapy ?2?has difficulty getting to the office because of being single car family. She notes that nothing is helping her pain, she is getting increasingly frustrated. She does note that she's had injection attempts in the past at [facility] without significant improvement?the pain was not this significant at that time however. Currently taking ibuprofen, motrin, flexeril, diclofenac without significant improvement. Using gabapentin as well from [facility]-but not making any difference @ 100 mg TID. PAST MEDICAL HISTORY Diagnosis Date - Abnormal Pap smear of cervix 05/2013 PLANNED PARENTHOOD - ADHD (attention deficit hyperactivity disorder) - Bipolar disorder (HCC) - Gonorrhea 04/2013 - Obesity - Old disruption of anterior cruciate ligament ACL tear - PMH - PAST MEDICAL HISTORY OF 04/24/09 normal color vision - Tobacco use PAST SURGICAL HISTORY Procedure Laterality Date - APPENDECTOMY 09/04/07 - ARTHROTOMY,OPEN REPAIR MENISCUS 2006 Open knee reconstruction, ACL left - SECTION HX 2013 Social History Socioeconomic History Marital status: Single Spouse name: Not on file Number of children: Not on file Years of education: 12 Highest education level: Not on file Social Needs Financial resource strain: Not on file Food insecurity - worry: Not on file Food insecurity - inability: Not on file Transportation needs - medical: Not on file Transportation needs - non-medical: Not on file Occupational History Occupation: UNEMPLOYED Tobacco Use Smoking status: Current Every Day Smoker Packs/day: 0.50 Years: 9.00 Pack years: 4.5 Types: Cigarettes Quit date: 07/11/2011 Years since quittin.1 Smokeless tobacco: Never Used Substance and Sexual Activity Alcohol use: No Drug use: No Sexual activity: Yes Partners: Male control/protection: Injection Other Topics Concerns: Not on file Social History Narrative Not on file Current Outpatient Medications: diclofenac potassium (CATAFLAM) 50 mg tablet Take 1 tablet by mouth three times daily as needed. cyclobenzaprine (FLEXERIL) 10 mg tablet Take 1 tablet by mouth three times daily as needed. dextroamphetamine-amphetam ine (ADDERALL) 20 mg tablet Take 20 mg by mouth twice daily. ARIPiprazole (ABILIFY) 30 mg tablet Take 15 mg by mouth once daily. sertraline (ZOLOFT) 100 mg tablet Take 150 mg by mouth. ZOLPIDEM TARTRATE (AMBIEN ORAL) Take by mouth. MEDROXYPROGESTERONE ACETATE (DEPO-PROVERA INTRAMUSC.) Inject intramuscularly. albuterol HFA (VENTOLIN HFA) 90 mcg/actuation inhaler Inhale 2 Puffs as instructed every 4 hours as needed for Wheezing/Shortness of Breath. docusate sodium (COLACE) 100 mg capsule Take 1 capsule by mouth twice daily. (Patient not taking: Reported on 05/08/2018 ) lamoTRIgine (LAMICTAL) 25 mg tablet Take 25 mg by mouth twice daily. No current facility-administered medications for this visit. ALLERGIES Allergen Reactions - Tylenol #3 [Codeine] GI Upset - Vicodin [Hydrocodon* GI Upset Resp 16 Ht 5' 6 (1.68m) Wt 216 lb (98.0kg) BMI 34.88 kg/(m2). Exam: Gen: Pt is a well appearing, overweight female in NAD Head: is normocephalic/autraumatic Eyes: EOMI, sclera Clear Psych:Oriented x3. Tearful throughout exam, expresses frustration at ongoing pain, its effect on her day-to-day function Gait: Walks in a slouched forward position Lumbar spine: Range of motion is restricted, patient unable to stand fully erect, leans leftward?with right-sided leaning causes pain in the buttock and down the right leg. Reviewed report from [facility] showing disc extrusion at L4-5 with compression on the nerve root ASSESSMENT: (M54.41, G89.29) Chronic right-sided low back pain with right-sided sciatica PLAN: ? Discussed diagnosis and treatment options. ? Again encouraged attendance at physical therapy. ? Patient is not interested in surgical consultation at this time. ? After discussion?elected to set up referral to Misha/Cassandra pain management at [facility]. With hopes of injection at the L4-5 nerve root. ? Patient is to call back if not improving and wishes surgical consultation. ? Discussed gabapentin as pain management?she is taking 100 mg of this 3 times a day only for the last couple of days. Has not noted a change. We discussed possibility of 300 mg 3 times a day, but if not having much improvement would not continue the medicine. She will call back to discuss this if she increases the dose she was given by the emergency department, and is interested in refill. Greater than 25 minutes was spent in care of this patient over half in counseling Return if symptoms worsen or fail to improve. Obed Samson MD [facility] PROGRESS HNO ID: [id number] Author: Alena Bauer Service: ? Author Type: Construction And Maintenance Inspector Type: Progress Notes Filed: 09/04/2018 11:13 AM Note Text: REVIEW OF SYSTEMS: GENERAL: Well developed, well nourished. No acute distress PAIN: Chronic Pain Lumbar spine CARDIOVASCULAR: Negative for chest pain, leg swelling and palpations. MSK: Negative for joint pain, swelling, back pain, muscle pain. SKIN: Negative for lesions, rash, itching, metal sensitivity NEURO: Negative for seizure, trauma, numbness/tingling of extremities. ENDOCRINE: Negative for Diabetes Type 1 and Type 2 HEMATOLOGY: Negative for excessive bleeding, clots, bleeding disorders. [facility] CNOVon 07-31-2018 CNOV Office Visit (AGPOB1 ) -- POLINA GIRON ([id number]) 1990 F Date Time Provider Department 07/31/18 9:15 AM [facility]ED [facility] During your visit today, we recorded the following information about you: Respiration Weight Height 18/minute 98 kg 1.676 m Peterson Crook 07/31/2018 9:36 AM Signed REVIEW OF SYSTEMS: GENERAL: Well developed, well nourished. No acute distress PAIN: Pain 12/12 CARDIOVASCULAR: Negative for chest pain, leg swelling and palpations. MSK: Negative for joint pain, swelling, back pain, muscle pain. SKIN: Negative for lesions, rash, itching, metal sensitivity NEURO: Numbness/tingling of extremties ENDOCRINE: Negative for Diabetes Type 1 and Type 2 HEMATOLOGY: Negative for excessive bleeding, clots, bleeding disorders. Patient statrts p.t in one week. Obed Samson MD, MD 07/31/2018 9:36 AM Signed HPI: Polina Giron is a 27 year old female who presents today for low back pain into left leg. Pain is going down her leg, having difficulty with the pain-the steroids did help-now notes that there is pain in both legs. Taking ibuprofen and flexeril. ALso takes zoloft, abilify, lamotrigine, adderall, and ambien. No loss of bowell or bladder function-no change-constipated. Has numbness down the right leg-reports global leg numbness. PAST MEDICAL HISTORY Diagnosis Date - Abnormal Pap smear of cervix 05/2013 PLANNED PARENTHOOD - ADHD (attention deficit hyperactivity disorder) - Bipolar disorder (HCC) - Gonorrhea 04/2013 - Obesity - Old disruption of anterior cruciate ligament ACL tear - PMH - PAST MEDICAL HISTORY OF 04/24/09 normal color vision - Tobacco use PAST SURGICAL HISTORY Procedure Laterality Date - APPENDECTOMY 09/04/07 - ARTHROTOMY,OPEN REPAIR MENISCUS 2006 Open knee reconstruction, ACL left - SECTION HX 2013 Social History Marital status: Single Spouse name: Years of education: 12 Number of children: Occupational History Occupation Employer Comment UNEMPLOYED Social History Main Topics Smoking status: Current Every Day Smoker Packs/day: 0.50 Years: 9.00 Types: Cigarettes Last attempt to quit: 07/11/2011 Smokeless tobacco: Never Used Alcohol use: No Drug use: No Sexual activity: Yes Partners with: Male control/protection: Injection Current Outpatient Prescriptions: cyclobenzaprine (FLEXERIL) 10 mg tablet Take 1 tablet by mouth three times daily as needed. dextroamphetamine-amphetam ine (ADDERALL) 20 mg tablet Take 20 mg by mouth twice daily. ARIPiprazole (ABILIFY) 30 mg tablet Take 15 mg by mouth once daily. sertraline (ZOLOFT) 100 mg tablet Take 150 mg by mouth. ZOLPIDEM TARTRATE (AMBIEN ORAL) Take by mouth. MEDROXYPROGESTERONE ACETATE (DEPO-PROVERA INTRAMUSC.) Inject intramuscularly. diclofenac potassium (CATAFLAM) 50 mg tablet Take 1 tablet by mouth three times daily as needed. albuterol HFA (VENTOLIN HFA) 90 mcg/actuation inhaler Inhale 2 Puffs as instructed every 4 hours as needed for Wheezing/Shortness of Breath. docusate sodium (COLACE) 100 mg capsule Take 1 capsule by mouth twice daily. (Patient not taking: Reported on 05/08/2018 ) lamoTRIgine (LAMICTAL) 25 mg tablet Take 25 mg by mouth twice daily. No current facility-administered medications for this visit. ALLERGIES Allergen Reactions - Tylenol #3 [Codeine] GI Upset - Vicodin [Hydrocodon* GI Upset Resp 18 Ht 5' 6 (1.68m) Wt 216 lb (98.0kg) BMI 34.88 kg/(m2). Exam: Gen: Pt is a overweight female in NAD Head: is normocephalic/autraumatic Eyes: EOMI, sclera Clear Psych: Patient is pleasant, interactive and appropriate throughout the exam. Oriented x3. Gait: normal Lumbar Spine: appearance: normal, ROM flextion normal-extension limited to 10 degrees forward-with ext causing pain into right leg, TTP roshni lumbar spine, paraspinal right and gluteal region right with radiation to leg Lower Extremity Muscle exam: muscle tone and bulk normal. Good and symmetric strength great toe extension; ankle plantar flexion/dorsiflexion; knee flexion/extension; hip flexion/abduction/adductio n. Lower extremity neuro exam: sensation to soft touch subjectively decreased over entirety of right leg; intact over the LLE bilaterally. DTR's @ patella and achilles equal and symmetric bilaterally; negative SLR, negative myoclonus ASSESSMENT: (M54.41, G89.29) Chronic right-sided low back pain with right-sided sciatica (primary encounter diagnosis) PLAN: ? Discussed diagnosis and treatment options. ? Will attempt diclofenac for pain ? Pt to start PT next week ? Given long standing back pain, which is worsening, will order MRI now to see if surgical consult is appropriate. ? Discussed multiple meds she is on, and danger of interaction with TCA, shailesh pentin or pregabalin. Did not refill cyclobenzaprine given level of sedating meds she is already on-and lack of any improvement. Return for MRIresults. Obed Samson MD Referring Provider: SELF [200] Allergies As of Date: 07/31/2018 Noted Allergy Reaction TYLENOL #3 (CODEINE) 06/01/2007 8 - GI Upset VICODIN (HYDROCODONE-ACETAMINOPHE* 06/01/2007 8 - GI Upset Date Reviewed: 07/31/2018 Reviewed by: Obed Samson MD - Fully Assessed Reason for Visit: Follow Up [171] Cmt: back and leg Primary Visit Diagnosis:Chronic right-sided low back pain with right-sided sciatica [M54.41, G89.29] Order(s):MRI LUMBAR SPINE WO IVCON [[id number]] Order #: [id number] FUTURE diclofenac potassium (CATAFLAM) 50 mg tabletTake 1 tablet by mouth three times daily as needed.Disp: 50 tabletRfl: 1 Prescriptions as of 07/31/2018 Sig: CYCLOBENZAPRINE 10 MG TABLET Take 1 tablet by mouth three * DEXTROAMPHETAMINE-AMPHETAM INE* Take 20 mg by mouth twice shahid* ARIPIPRAZOLE 30 MG TABLET Take 15 mg by mouth once maria del rosario* SERTRALINE 100 MG TABLET Take 150 mg by mouth. AMBIEN ORAL Take by mouth. DEPO-PROVERA INTRAMUSC. Inject intramuscularly. DICLOFENAC POTASSIUM 50 MG TA* Take 1 tablet by mouth three * ALBUTEROL SULFATE HFA 90 MCG/* Inhale 2 Puffs as instructed * DOCUSATE SODIUM 100 MG CAPSULE Take 1 capsule by mouth twice* Patient not taking: Reported on 05/08/2018 LAMOTRIGINE 25 MG TABLET Take 25 mg by mouth twice shahid* Problem List As Of Date 07/31/2018 Noted Resolved SPRAIN OF ANKLE NOS [S93.409A] INVALID FOR* PATELLAR TENDINITIS [M76.50] INVALID FOR* Bipolar disorder, unspecified [F31.9] INVALID FOR* More... CUTANEOUS ACTINOMYCOSIS [A42.89] INVALID FOR* VIRAL WARTS NOS [B07.9] INVALID FOR* Skin Tags INVALID FOR* Acne Vulgaris: Inflammatory/Comedonal Grade III*INVALID FOR* Cervicalgia [M54.2] INVALID FOR* Kyphosis (Acquired) (Postural) [M40.00] INVALID FOR* First trimester bleeding [O20.9] INVALID FOR* More... Nausea/vomiting in [O21.9] INVALID FOR* More... Tobacco use in [O99.330] INVALID FOR* More... Leaking of urine [R32] INVALID FOR* More... History of abnormal Pap smear [Z87.898] INVALID FOR* More... Patient requested diagnostic testing [Z01.89] INVALID FOR* More... Tobacco use [Z72.0] ADHD (attention deficit hyperactivity disorder)* Bipolar disorder (HCC) [F31.9] Gonorrhea [A54.9] INVALID FOR* Obesity [E66.9] Prescriptions ordered this encounter Disp Refills Start End DICLOFENAC POTASSIUM 50 MG TABLET 50 t* 1 07/31/2018 Route: ORAL Sig: Take 1 tablet by mouth three times daily as needed. Medications Discontinued During This Encounter methylPREDNISolone (MEDROL, RACHEL,) 4 * 1 Pa* 0 07/17/2018 07/31/2018 Route: ORAL Sig: Take 1 tablet by mouth as directed. As directed on package Disc: Reason for discontinue is not on file. naproxen (NAPROSYN) 500 mg tablet 60 t* 0 05/08/2018 07/31/2018 Route: ORAL Sig: Take 1 tablet by mouth twice daily as needed. Take with food. Patient not taking: Reported on 07/17/2018 Disc: Reason for discontinue is not on file. buPROPion XL (WELLBUTRIN XL) 300 mg * 09/05/2016 07/31/2018 Class: Historical Med Sig: Disc: Reason for discontinue is not on file. CLONAZEPAM ORAL 07/31/2018 Class: Historical Med Route: ORAL Sig: Take 0.5 mg by mouth. Disc: Reason for discontinue is not on file. Disposition: Return for MRIresults. Follow-up and Disposition History Recorded Encounter Status:Closed by OBED SAMSON MD on 07/31/18 [facility] PROGRESSon 07-31-2018 PROGRESS HNO ID: [id number] Author: Obed Samson MD Service: (none) Author Type: Physician Type: Progress Notes Filed: 07/31/2018 9:36 AM Note Text: HPI: Polina Giron is a 27 year old female who presents today for low back pain into left leg. Pain is going down her leg, having difficulty with the pain-the steroids did help-now notes that there is pain in both legs. Taking ibuprofen and flexeril. ALso takes zoloft, abilify, lamotrigine, adderall, and ambien. No loss of bowell or bladder function-no change-constipated. Has numbness down the right leg-reports global leg numbness. PAST MEDICAL HISTORY Diagnosis Date - Abnormal Pap smear of cervix 05/2013 PLANNED PARENTHOOD - ADHD (attention deficit hyperactivity disorder) - Bipolar disorder (HCC) - Gonorrhea 04/2013 - Obesity - Old disruption of anterior cruciate ligament ACL tear - PMH - PAST MEDICAL HISTORY OF 04/24/09 normal color vision - Tobacco use PAST SURGICAL HISTORY Procedure Laterality Date - APPENDECTOMY 09/04/07 - ARTHROTOMY,OPEN REPAIR MENISCUS 2007 Open knee reconstruction, ACL left - SECTION HX 2013 Social History Marital status: Single Spouse name: Years of education: 12 Number of children: Occupational History Occupation Employer Comment UNEMPLOYED Social History Main Topics Smoking status: Current Every Day Smoker Packs/day: 0.50 Years: 9.00 Types: Cigarettes Last attempt to quit: 07/11/2011 Smokeless tobacco: Never Used Alcohol use: No Drug use: No Sexual activity: Yes Partners with: Male control/protection: Injection Current Outpatient Prescriptions: cyclobenzaprine (FLEXERIL) 10 mg tablet Take 1 tablet by mouth three times daily as needed. dextroamphetamine-amphetam ine (ADDERALL) 20 mg tablet Take 20 mg by mouth twice daily. ARIPiprazole (ABILIFY) 30 mg tablet Take 15 mg by mouth once daily. sertraline (ZOLOFT) 100 mg tablet Take 150 mg by mouth. ZOLPIDEM TARTRATE (AMBIEN ORAL) Take by mouth. MEDROXYPROGESTERONE ACETATE (DEPO-PROVERA INTRAMUSC.) Inject intramuscularly. diclofenac potassium (CATAFLAM) 50 mg tablet Take 1 tablet by mouth three times daily as needed. albuterol HFA (VENTOLIN HFA) 90 mcg/actuation inhaler Inhale 2 Puffs as instructed every 4 hours as needed for Wheezing/Shortness of Breath. docusate sodium (COLACE) 100 mg capsule Take 1 capsule by mouth twice daily. (Patient not taking: Reported on 05/08/2018 ) lamoTRIgine (LAMICTAL) 25 mg tablet Take 25 mg by mouth twice daily. No current facility-administered medications for this visit. ALLERGIES Allergen Reactions - Tylenol #3 [Codeine] GI Upset - Vicodin [Hydrocodon* GI Upset Resp 18 Ht 5' 6 (1.68m) Wt 216 lb (98.0kg) BMI 34.88 kg/(m2). Exam: Gen: Pt is a overweight female in NAD Head: is normocephalic/autraumatic Eyes: EOMI, sclera Clear Psych: Patient is pleasant, interactive and appropriate throughout the exam. Oriented x3. Gait: normal Lumbar Spine: appearance: normal, ROM flextion normal-extension limited to 10 degrees forward-with ext causing pain into right leg, TTP roshni lumbar spine, paraspinal right and gluteal region right with radiation to leg Lower Extremity Muscle exam: muscle tone and bulk normal. Good and symmetric strength great toe extension; ankle plantar flexion/dorsiflexion; knee flexion/extension; hip flexion/abduction/adductio n. Lower extremity neuro exam: sensation to soft touch subjectively decreased over entirety of right leg; intact over the LLE bilaterally. DTR's @ patella and achilles equal and symmetric bilaterally; negative SLR, negative myoclonus ASSESSMENT: (M54.41, G89.29) Chronic right-sided low back pain with right-sided sciatica (primary encounter diagnosis) PLAN: ? Discussed diagnosis and treatment options. ? Will attempt diclofenac for pain ? Pt to start PT next week ? Given long standing back pain, which is worsening, will order MRI now to see if surgical consult is appropriate. ? Discussed multiple meds she is on, and danger of interaction with TCA, shailesh pentin or pregabalin. Did not refill cyclobenzaprine given level of sedating meds she is already on-and lack of any improvement. Return for MRIresults. Obed Samosn MD [facility] PROGRESS HNO ID: [id number] Author: Victoria (Peterson) Reich Service: (none) Author Type: Sound Mixer Type: Progress Notes Filed: 07/31/2018 9:36 AM Note Text: REVIEW OF SYSTEMS: GENERAL: Well developed, well nourished. No acute distress PAIN: Pain 12/12 CARDIOVASCULAR: Negative for chest pain, leg swelling and palpations. MSK: Negative for joint pain, swelling, back pain, muscle pain. SKIN: Negative for lesions, rash, itching, metal sensitivity NEURO: Numbness/tingling of extremties ENDOCRINE: Negative for Diabetes Type 1 and Type 2 HEMATOLOGY: Negative for excessive bleeding, clots, bleeding disorders. Patient statrts p.t in one week. Normal [facility] CNOVon 07-17-2018 CNOV Office Visit (AGPOB1 ) -- POLINA GIRON ([id number]) 1990 F Date Time Provider Department 07/17/18 10:30 AM OBED SAMSON AGPOB1 During your visit today, we recorded the following information about you: Respiration Weight Height 17/minute 98 kg 1.676 m [employer] 07/17/2018 1:37 PM Signed REVIEW OF SYSTEMS: GENERAL: Well developed, well nourished. No acute distress PAIN: Pain 01/12 CARDIOVASCULAR: Negative for chest pain, leg swelling and palpations. MSK: joint pain right leg to the toes SKIN: Negative for lesions, rash, itching, metal sensitivity NEURO: Numbness/tingling of extremties right toes ENDOCRINE: Negative for Diabetes Type 1 and Type 2 HEMATOLOGY: Negative for excessive bleeding, clots, bleeding disorders. Patient states pain comes from her back down to her toes which are always numb. Patient saw a chiropracter 1-2 months agoOwen Barragan, who stated she has a bulging disc. Patient is unable to sit up straight due to back pain. Obed Samson MD, MD 07/17/2018 1:45 PM Addendum HPI: Polina Giron is a 27 year old female who presents today for low back pain. Fell backwards on ice, hit head, tailbone, neck. May 2018; since then has had pain in the low back-which radiates to the right leg, below the knee. Has 'stabbing' burning pain in the right leg. Has been to the ED x2; has been to PCP; has been to Pain mgmt and had shots (prior to the fall) maybe 4 or 5 months ago @ [facility]. Patient has had low back pain since age 15-it is central low back pain-and now has the pain down the right leg that radiates and causes numbness and tingling. Has not been to PT; Uses naproxen, ibuprofen, mobic; shots in the back no help (before the fall); has medicare and [employer]. Has health mental health issues and is disabled bc of this. PAST MEDICAL HISTORY Diagnosis Date - Abnormal Pap smear of cervix 05/2013 PLANNED PARENTHOOD - ADHD (attention deficit hyperactivity disorder) - Bipolar disorder (HCC) - Gonorrhea 04/2013 - Obesity - Old disruption of anterior cruciate ligament ACL tear - PMH - PAST MEDICAL HISTORY OF 04/24/09 normal color vision - Tobacco use PAST SURGICAL HISTORY Procedure Laterality Date - APPENDECTOMY 09/04/07 - ARTHROTOMY,OPEN REPAIR MENISCUS 2006 Open knee reconstruction, ACL left - SECTION HX 2013 Social History Marital status: Single Spouse name: Years of education: 12 Number of children: Occupational History Occupation Employer Comment UNEMPLOYED Social History Main Topics Smoking status: Current Every Day Smoker Packs/day: 0.50 Years: 9.00 Types: Cigarettes Last attempt to quit: 07/11/2011 Smokeless tobacco: Never Used Alcohol use: No Drug use: No Sexual activity: Yes Partners with: Male control/protection: Injection Current Outpatient Prescriptions: cyclobenzaprine (FLEXERIL) 10 mg tablet Take 1 tablet by mouth three times daily as needed. dextroamphetamine-amphetam ine (ADDERALL) 20 mg tablet Take 20 mg by mouth twice daily. ARIPiprazole (ABILIFY) 30 mg tablet Take 15 mg by mouth once daily. sertraline (ZOLOFT) 100 mg tablet Take 150 mg by mouth. ZOLPIDEM TARTRATE (AMBIEN ORAL) Take by mouth. MEDROXYPROGESTERONE ACETATE (DEPO-PROVERA INTRAMUSC.) Inject intramuscularly. methylPREDNISolone (MEDROL, RACHEL,) 4 mg Dose-Pack Take 1 tablet by mouth as directed. As directed on package albuterol HFA (VENTOLIN HFA) 90 mcg/actuation inhaler Inhale 2 Puffs as instructed every 4 hours as needed for Wheezing/Shortness of Breath. naproxen (NAPROSYN) 500 mg tablet Take 1 tablet by mouth twice daily as needed. Take with food. (Patient not taking: Reported on 07/17/2018 ) docusate sodium (COLACE) 100 mg capsule Take 1 capsule by mouth twice daily. (Patient not taking: Reported on 05/08/2018 ) lamoTRIgine (LAMICTAL) 25 mg tablet Take 25 mg by mouth twice daily. buPROPion XL (WELLBUTRIN XL) 300 mg 24 hr tablet CLONAZEPAM ORAL Take 0.5 mg by mouth. No current facility-administered medications for this visit. ALLERGIES Allergen Reactions - Tylenol #3 [Codeine] GI Upset - Vicodin [Hydrocodon* GI Upset Resp 17 Ht 5' 6 (1.68m) Wt 216 lb (98.0kg) BMI 34.88 kg/(m2). Exam: Gen: Pt is a overweight female in NAD Head: is normocephalic/autraumatic Eyes: EOMI, sclera Clear Psych: Patient is irritable, she is responsive, and oriented. Gait: walks in bent over posturee Lumbar Spine: appearance: apears to have dextroscoliosis lumbar spine, ROM [id number] to extend, TTP roshni lumbar spine, paraspinal right and gluteal region right without radiation, Lower extremity vascular exam: PT pulses palpable B/L, no edema over LE., Lower extremity neuro exam: sensation to soft touch decreased over right LE, otherwise intact over the LE bilaterally. DTR's @ patella and achilles equal and symmetric bilaterally; + SLR right side Lower Extremity Muscle exam: muscle tone and bulk normal. Good and symmetric strength great toe extension; ankle plantar flexion/dorsiflexion; knee flexion/extension; hip flexion/abduction/adductio n. 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 Discussed diagnosis and treatment options. ? Strongly recommended PT to start with-pt preferred to start with this, will re-evaluate the need for MRI rapidly-pt understands that if not improving within two weeks, will call back for MRI ? Elected to attempt Medrol dose pack to see if we can get some pain relief for patient now. ? Patient is willing to move forward with surgical intervention if she is not getting good relief with therapy, or short course of oral corticosteroids. Return in about 4 weeks (around 08/14/2018). Obed Samson MD Referring Provider: SELF [200] Allergies As of Date: 07/17/2018 Noted Allergy Reaction TYLENOL #3 (CODEINE) 06/01/2007 8 - GI Upset VICODIN (HYDROCODONE-ACETAMINOPHE* 06/01/2007 8 - GI Upset Date Reviewed: 07/17/2018 Reviewed by: Obed Samson MD - Fully Assessed Reason for Visit: Back Pain [12] Cmt: right side o/s 3years no images slipped and fell 1 year ago Reason For Visit History Recorded Primary Visit Diagnosis:Chronic right-sided low back pain with right-sided sciatica [M54.41, G89.29] Other Visit Diagnosis:Transitional vertebra [Q76.49] Order(s):XR LUMBAR LIMITED 2V FLEX/EXT [[id number]] Order #: [id number] CONSULT TO PHYSICAL THERAPY (AG) [[id number]] Order #: [id number]: 1 methylPREDNISolone (MEDROL, RACHEL,) 4 mg Dose-PackTake 1 tablet by mouth as directed. As directed on packageDisp: 1 PackageRfl: 0 Prescriptions as of 07/17/2018 Sig: CYCLOBENZAPRINE 10 MG TABLET Take 1 tablet by mouth three * DEXTROAMPHETAMINE-AMPHETAM INE* Take 20 mg by mouth twice shahid* ARIPIPRAZOLE 30 MG TABLET Take 15 mg by mouth once maria del rosario* SERTRALINE 100 MG TABLET Take 150 mg by mouth. AMBIEN ORAL Take by mouth. DEPO-PROVERA INTRAMUSC. Inject intramuscularly. METHYLPREDNISOLONE 4 MG TABLE* Take 1 tablet by mouth as dir* ALBUTEROL SULFATE HFA 90 MCG/* Inhale 2 Puffs as instructed * NAPROXEN 500 MG TABLET Take 1 tablet by mouth twice * Patient not taking: Reported on 07/17/2018 DOCUSATE SODIUM 100 MG CAPSULE Take 1 capsule by mouth twice* Patient not taking: Reported on 05/08/2018 LAMOTRIGINE 25 MG TABLET Take 25 mg by mouth twice shahid* BUPROPION XL 300 MG 24 HR TAB CLONAZEPAM ORAL Take 0.5 mg by mouth. Medication notes this encounter ALBUTEROL SULFATE HFA 90 MCG/ACTUATION AEROSOL INHALER >> Delano Reich[employer] 07/17/2018 10:58 AM >> REICH [employer] MonJul 17, 2018 10:58 AM Not stated LAMOTRIGINE 25 MG TABLET >> Delano Reich, [employer] 07/17/2018 10:58 AM >> REICH [employer] MonJul 17, 2018 10:58 AM Not stated BUPROPION XL 300 MG 24 HR TAB >> Delano Reich, [employer] 07/17/2018 10:52 AM >> REICH [employer] [place] Jul 17, 2018 10:52 AM Not given CLONAZEPAM ORAL >> Delano [employer] 07/17/2018 10:58 AM >> REICH [employer] [place] Jul 17, 2018 10:58 AM Not stated Problem List As Of Date 07/17/2018 Noted Resolved SPRAIN OF ANKLE NOS [S93.409A] INVALID FOR* PATELLAR TENDINITIS [M76.50] INVALID FOR* Bipolar disorder, unspecified [F31.9] INVALID FOR* More... CUTANEOUS ACTINOMYCOSIS [A42.89] INVALID FOR* VIRAL WARTS NOS [B07.9] INVALID FOR* Skin Tags INVALID FOR* Acne Vulgaris: Inflammatory/Comedonal Grade III*INVALID FOR* Cervicalgia [M54.2] INVALID FOR* Kyphosis (Acquired) (Postural) [M40.00] INVALID FOR* First trimester bleeding [O20.9] INVALID FOR* More... Nausea/vomiting in [O21.9] INVALID FOR* More... Tobacco use in [O99.330] INVALID FOR* More... Leaking of urine [R32] INVALID FOR* More... History of abnormal Pap smear [Z87.898] INVALID FOR* More... Patient requested diagnostic testing [Z01.89] INVALID FOR* More... Tobacco use [Z72.0] ADHD (attention deficit hyperactivity disorder)* Bipolar disorder (HCC) [F31.9] Gonorrhea [A54.9] INVALID FOR* Obesity [E66.9] Prescriptions ordered this encounter Disp Refills Start End METHYLPREDNISOLONE 4 MG TABLETS IN A* 1 Pa* 0 07/17/2018 Route: ORAL Sig: Take 1 tablet by mouth as directed. As directed on package Disposition: Return in about 4 weeks (around 08/14/2018). Follow-up and Disposition History Recorded Encounter Status:Closed by OBED SAMSON MD on 07/17/18 Normal [facility] PROGRESSon 07-17-2018 PROGRESS HNO ID: [id number] Author: Obed Samson MD Service: (none) Author Type: Physician Type: Progress Notes Filed: 07/17/2018 1:45 PM Note Text: HPI: Polina Giron is a 27 year old female who presents today for low back pain. Fell backwards on ice, hit head, tailbone, neck. May 2018; since then has had pain in the low back-which radiates to the right leg, below the knee. Has 'stabbing' burning pain in the right leg. Has been to the ED x2; has been to PCP; has been to Pain mgmt and had shots (prior to the fall) maybe 4 or 5 months ago @ [facility]. Patient has had low back pain since age 15-it is central low back pain-and now has the pain down the right leg that radiates and causes numbness and tingling. Has not been to PT; Uses naproxen, ibuprofen, mobic; shots in the back no help (before the fall); has medicare and tressa. Has health mental health issues and is disabled bc of this. PAST MEDICAL HISTORY Diagnosis Date - Abnormal Pap smear of cervix 05/2013 PLANNED PAR[facility] - ADHD (attention deficit hyperactivity disorder) - Bipolar disorder (HCC) - Gonorrhea 04/2013 - Obesity - Old disruption of anterior cruciate ligament ACL tear - PMH - PAST MEDICAL HISTORY OF 04/24/09 normal color vision - Tobacco use PAST SURGICAL HISTORY Procedure Laterality Date - APPENDECTOMY 09/04/07 - ARTHROTOMY,OPEN REPAIR MENISCUS 2007 Open knee reconstruction, ACL left - SECTION HX 2013 Social History Marital status: Single Spouse name: Years of education: 12 Number of children: Occupational History Occupation Employer Comment UNEMPLOYED Social History Main Topics Smoking status: Current Every Day Smoker Packs/day: 0.50 Years: 9.00 Types: Cigarettes Last attempt to quit: 07/11/2011 Smokeless tobacco: Never Used Alcohol use: No Drug use: No Sexual activity: Yes Partners with: Male control/protection: Injection Current Outpatient Prescriptions: cyclobenzaprine (FLEXERIL) 10 mg tablet Take 1 tablet by mouth three times daily as needed. dextroamphetamine-amphetam ine (ADDERALL) 20 mg tablet Take 20 mg by mouth twice daily. ARIPiprazole (ABILIFY) 30 mg tablet Take 15 mg by mouth once daily. sertraline (ZOLOFT) 100 mg tablet Take 150 mg by mouth. ZOLPIDEM TARTRATE (AMBIEN ORAL) Take by mouth. MEDROXYPROGESTERONE ACETATE (DEPO-PROVERA INTRAMUSC.) Inject intramuscularly. methylPREDNISolone (MEDROL, RACHEL,) 4 mg Dose-Pack Take 1 tablet by mouth as directed. As directed on package albuterol HFA (VENTOLIN HFA) 90 mcg/actuation inhaler Inhale 2 Puffs as instructed every 4 hours as needed for Wheezing/Shortness of Breath. naproxen (NAPROSYN) 500 mg tablet Take 1 tablet by mouth twice daily as needed. Take with food. (Patient not taking: Reported on 07/17/2018 ) docusate sodium (COLACE) 100 mg capsule Take 1 capsule by mouth twice daily. (Patient not taking: Reported on 05/08/2018 ) lamoTRIgine (LAMICTAL) 25 mg tablet Take 25 mg by mouth twice daily. buPROPion XL (WELLBUTRIN XL) 300 mg 24 hr tablet CLONAZEPAM ORAL Take 0.5 mg by mouth. No current facility-administered medications for this visit. ALLERGIES Allergen Reactions - Tylenol #3 [Codeine] GI Upset - Vicodin [Hydrocodon* GI Upset Resp 17 Ht 5' 6 (1.68m) Wt 216 lb (98.0kg) BMI 34.88 kg/(m2). Exam: Gen: Pt is a overweight female in NAD Head: is normocephalic/autraumatic Eyes: EOMI, sclera Clear Psych: Patient is irritable, she is responsive, and oriented. Gait: walks in bent over posturee Lumbar Spine: appearance: apears to have dextroscoliosis lumbar spine, ROM 12-23-[id number] to extend, TTP roshni lumbar spine, paraspinal right and gluteal region right without radiation, Lower extremity vascular exam: PT pulses palpable B/L, no edema over LE., Lower extremity neuro exam: sensation to soft touch decreased over right LE, otherwise intact over the LE bilaterally. DTR's @ patella and achilles equal and symmetric bilaterally; + SLR right side Lower Extremity Muscle exam: muscle tone and bulk normal. Good and symmetric strength great toe extension; ankle plantar flexion/dorsiflexion; knee flexion/extension; hip flexion/abduction/adductio n. 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 Discussed diagnosis and treatment options. ? Strongly recommended PT to start with-pt preferred to start with this, will re-evaluate the need for MRI rapidly-pt understands that if not improving within two weeks, will call back for MRI ? Elected to attempt Medrol dose pack to see if we can get some pain relief for patient now. ? Patient is willing to move forward with surgical intervention if she is not getting good relief with therapy, or short course of oral corticosteroids. Return in about 4 weeks (around 08/14/2018). Obed Samson MD Normal [facility] PROGRESS HNO ID: [id number] Author: Victoria (Tech) Reich Service: (none) Author Type: Sound Mixer Type: Progress Notes Filed: 07/17/2018 1:37 PM Note Text: REVIEW OF SYSTEMS: GENERAL: Well developed, well nourished. No acute distress PAIN: Pain 01/12 CARDIOVASCULAR: Negative for chest pain, leg swelling and palpations. MSK: joint pain right leg to the toes SKIN: Negative for lesions, rash, itching, metal sensitivity NEURO: Numbness/tingling of extremties right toes ENDOCRINE: Negative for Diabetes Type 1 and Type 2 HEMATOLOGY: Negative for excessive bleeding, clots, bleeding disorders. Patient states pain comes from her back down to her toes which are always numb. Patient saw a chiropracter 1-2 months agoOwen Barragan, who stated she has a bulging disc. Patient is unable to sit up straight due to back pain. Normal [facility] Vital Signs Date Time Vital Sign Value Performing Clinician Facility 10-23-2024 14:55-0400 Heart rate 89 /min Nataliya Gomez MD Work Phone: [facility] 10-23-2024 14:55-0400 Respiratory rate 17 /min Nataliya Gomez MD Work Phone: [facility] 10-23-2024 14:55-0400 SaO2% (BldA) [Mass fraction] 99 % Nataliya Gomez MD Work Phone: [facility] 10-23-2024 12:58-0400 Body temperature 97.9 [degF] Nataliya Gomez MD Work Phone: [facility] 10-23-2024 12:58-0400 Diastolic blood pressure 88 mm[Hg] Nataliya Gomez MD Work Phone: [facility] 10-23-2024 12:58-0400 Systolic blood pressure 136 mm[Hg] Nataliya Gomez MD Work Phone: [facility] 10-23-2024 12:56-0400 Body height 167.64 cm Nataliya Gomez MD Work Phone: [facility] 10-23-2024 12:56-0400 Body mass index (BMI) [Ratio] 38.5 kg/m2 Nataliya Gomez MD Work Phone: [facility] 10-23-2024 12:56-0400 Body weight 108.4 kg Nataliya Gomez MD Work Phone: [facility] 10-16-2024 12:14-0400 Body height 167.6 cm Valeri Kwok MD Work Phone: [facility] 10-16-2024 12:14-0400 Body mass index (BMI) [Ratio] 40.19 kg/m2 Valeri Kwok MD Work Phone: [facility] 10-16-2024 12:14-0400 Body weight 112.95 kg Valeri Kwok MD Work Phone: [facility] 10-16-2024 12:14-0400 Diastolic blood pressure 84 mm[Hg] Valeri Kwok MD Work Phone: [facility] 10-16-2024 12:14-0400 Systolic blood pressure 126 mm[Hg] Valeri Kwok MD Work Phone: [facility] 08-15-2024 13:58-0400 Body height 167.6 cm Megan Mason CABIN EQUIPMENT SUPERVISOR - MANAGER [employer] Work Phone: [facility] 08-15-2024 13:58-0400 Body mass index (BMI) [Ratio] 40.48 kg/m2 Megan Colladolellan CABIN EQUIPMENT SUPERVISOR - MANAGER [employer] Work Phone: [facility] 08-15-2024 13:58-0400 Body weight 113.76 kg Megan Colladolellan CABIN EQUIPMENT SUPERVISOR - MANAGER [employer] Work Phone: [facility] 08-15-2024 13:58-0400 Diastolic blood pressure 80 mm[Hg] Megan Marlon CABIN EQUIPMENT SUPERVISOR - MANAGER [employer] Work Phone: [facility] 08-15-2024 13:58-0400 Heart rate 97 /min Megan Colladolellan CABIN EQUIPMENT SUPERVISOR - MANAGER [employer] Work Phone: [facility] 08-15-2024 13:58-0400 Systolic blood pressure 117 mm[Hg] Megan Colladolellan CABIN EQUIPMENT SUPERVISOR - MANAGER [employer] Work Phone: [facility] 05-23-2024 14:32-0500 Body height 167.6 cm Megan Mason CABIN EQUIPMENT SUPERVISOR - MANAGER [employer] Work Phone: [facility] 05-23-2024 14:32-0500 Body mass index (BMI) [Ratio] 39.45 kg/m2 Megan Colladolellan CABIN EQUIPMENT SUPERVISOR - MANAGER [employer] Work Phone: [facility] 05-23-2024 14:32-0500 Body weight 110.86 kg Megan Colladolellan CABIN EQUIPMENT SUPERVISOR - MANAGER [employer] Work Phone: [facility] 05-23-2024 14:32-0500 Diastolic blood pressure 69 mm[Hg] Megan Marlon CABIN EQUIPMENT SUPERVISOR - MANAGER [employer] Work Phone: [facility] 05-23-2024 14:32-0500 Heart rate 81 /min Megan Marlon CABIN EQUIPMENT SUPERVISOR - MANAGER [employer] Work Phone: [facility] 05-23-2024 14:32-0500 Systolic blood pressure 106 mm[Hg] Megan Mason CABIN EQUIPMENT SUPERVISOR - MANAGER [employer] Work Phone: [facility] 02-28-2024 14:39-0400 Body height 167.6 cm Megan Mason CABIN EQUIPMENT SUPERVISOR - MANAGER [employer] Work Phone: [facility] 02-28-2024 14:39-0400 Body mass index (BMI) [Ratio] 40.42 kg/m2 Megan Mason CABIN EQUIPMENT SUPERVISOR - MANAGER [employer] Work Phone: [facility] 02-28-2024 14:39-0400 Body weight 113.58 kg Megan Mason CABIN EQUIPMENT SUPERVISOR - MANAGER [employer] Work Phone: [facility] 02-28-2024 14:39-0400 Diastolic blood pressure 89 mm[Hg] Megan Mason CABIN EQUIPMENT SUPERVISOR - MANAGER [employer]IS Work Phone: [facility] 02-28-2024 14:39-0400 Heart rate 79 /min Megan Mason CABIN EQUIPMENT SUPERVISOR - MANAGER [employer] Work Phone: [facility] 02-28-2024 14:39-0400 Systolic blood pressure 125 mm[Hg] Megan Mason CABIN EQUIPMENT SUPERVISOR - MANAGER [employer]IS Work Phone: [facility] 12-13-2023 12:13-0400 Body height 167.6 cm Valeri Kwok MD Work Phone: [facility] 12-13-2023 12:13-0400 Body mass index (BMI) [Ratio] 40.19 kg/m2 Valeri Kwok MD Work Phone: [facility] 12-13-2023 12:13-0400 Body weight 112.95 kg Valeri Kwok MD Work Phone: [facility] 12-13-2023 12:13-0400 Diastolic blood pressure 76 mm[Hg] Valeri Kwok MD Work Phone: [facility] 12-13-2023 12:13-0400 Systolic blood pressure 124 mm[Hg] Valeri Kwok MD Work Phone: [facility] 10-31-2023 12:55-0400 Body height 167.6 cm Meagn Colladolellan CABIN EQUIPMENT SUPERVISOR - MANAGER [employer]IS Work Phone: [facility] 10-31-2023 12:55-0400 Body mass index (BMI) [Ratio] 41.19 kg/m2 Megan Marlon CABIN EQUIPMENT SUPERVISOR - MANAGER [employer]IS Work Phone: [facility] 10-31-2023 12:55-0400 Body weight 115.76 kg Megan Marlon CABIN EQUIPMENT SUPERVISOR - MANAGER [employer]IS Work Phone: [facility] 10-31-2023 12:55-0400 Diastolic blood pressure 82 mm[Hg] Megan Marlon CABIN EQUIPMENT SUPERVISOR - MANAGER [employer]IS Work Phone: [facility] 10-31-2023 12:55-0400 Heart rate 96 /min Megan Marlon CABIN EQUIPMENT SUPERVISOR - MANAGER [employer]IS Work Phone: [facility] 10-31-2023 12:55-0400 Systolic blood pressure 127 mm[Hg] Megan Marlon CABIN EQUIPMENT SUPERVISOR - MANAGER [employer]IS Work Phone: [facility] 06-21-2023 12:17-0500 Body mass index (BMI) [Ratio] 40.19 kg/m2 Megan Marlon CABIN EQUIPMENT SUPERVISOR - MANAGER [employer] Work Phone: [facility] 06-21-2023 12:17-0500 Body weight 112.95 kg Megan Marlon CABIN EQUIPMENT SUPERVISOR - MANAGER [employer]IS Work Phone: [facility] 06-21-2023 12:17-0500 Diastolic blood pressure 88 mm[Hg] Megan Marlon CABIN EQUIPMENT SUPERVISOR - MANAGER [employer]IS Work Phone: [facility] 06-21-2023 12:17-0500 Heart rate 105 /min Megan Marlon CABIN EQUIPMENT SUPERVISOR - MANAGER [employer]IS Work Phone: [facility] 06-21-2023 12:17-0500 Systolic blood pressure 129 mm[Hg] Megan Mason CABIN EQUIPMENT SUPERVISOR - MANAGER [employer]IS Work Phone: [facility] 05-11-2023 08:28-0500 Body mass index (BMI) [Ratio] 39.38 kg/m2 Megan Mason CABIN EQUIPMENT SUPERVISOR - MANAGER [employer]IS Work Phone: [facility] 05-11-2023 08:28-0500 Body weight 110.68 kg Megan Mason CABIN EQUIPMENT SUPERVISOR - MANAGER [employer]IS Work Phone: [facility] 05-11-2023 08:28-0500 Diastolic blood pressure 81 mm[Hg] Megan Mason CABIN EQUIPMENT SUPERVISOR - MANAGER [employer]IS Work Phone: [facility] 05-11-2023 08:28-0500 Heart rate 90 /min Megan Mason CABIN EQUIPMENT SUPERVISOR - MANAGER [employer]IS Work Phone: [facility] 05-11-2023 08:28-0500 Systolic blood pressure 117 mm[Hg] Megan Mason CABIN EQUIPMENT SUPERVISOR - MANAGER [employer]IS Work Phone: [facility] 04-11-2023 14:10-0500 Diastolic Blood Pressure Non-Invasive 89 1 NIDAL CHOUJAA DO [facility] 04-11-2023 14:10-0500 Heart rate 97 /min NIDAL CHOUJAA DO [facility] 04-11-2023 14:10-0500 Reason For Taking VItal Signs NIDAL CHOUJAA DO [facility] 04-11-2023 14:10-0500 Respiratory rate 18 /min NIDAL CHOUJAA DO [facility] 04-11-2023 14:10-0500 Systolic Blood Pressure Non-Invasive 138 1 NIDAL CHOUJAA DO [facility] 04-11-2023 12:33-0500 Heart rate 100 /min NIDAL CHOUJAA DO [facility] 04-11-2023 12:33-0500 Respiratory rate 18 /min NIDAL CHOUJAA DO [facility] 04-11-2023 12:03-0500 Body temperature 98.06 [degF] NIDAL CHOUJAA DO [facility] 04-11-2023 12:03-0500 Diastolic Blood Pressure Non-Invasive 87 1 NIDAL CHOUJAA DO [facility] 04-11-2023 12:03-0500 Heart rate 100 /min NIDAL CHOUJAA DO [facility] 04-11-2023 12:03-0500 Respiratory rate 18 /min NIDAL CHOUJAA DO [facility] 04-11-2023 12:03-0500 Systolic Blood Pressure Non-Invasive 131 1 NIDAL CHOUJAA DO [facility] 02-18-2023 11:38-[address] MONTANA JUSTICE MD [facility] 02-18-2023 11:38-0400 Body temperature 97.7 [degF] DR MONTANA JUSTICE MD [facility] 02-18-2023 11:38-0400 Diastolic Blood Pressure Non-Invasive [address] MONTANA JUSTICE MD [facility] 02-18-2023 11:38-0400 Heart rate 77 /min DR MONTANA JUSTICE MD [facility] 02-18-2023 11:38-0400 Respiratory rate 16 /min DR MONTANA JUSTICE MD [facility] 02-18-2023 11:38-0400 Systolic Blood Pressure Non-Invasive [address] MONTANA JUSTICE MD [facility] 12-18-2022 12:54-0400 Body temperature 98.06 [degF] HELGA PHELPS MD [facility] 12-18-2022 12:54-0400 Diastolic Blood Pressure Non-Invasive 75 1 HELGA PHELPS MD [facility] 12-18-2022 12:54-0400 Heart rate 94 /min HELGA PHELPS MD [facility] 12-18-2022 12:54-0400 Respiratory rate 18 /min HELGA PHELPS MD [facility] 12-18-2022 12:54-0400 Systolic Blood Pressure Non-Invasive 111 1 HELGA PHELPS MD [facility] 10-06-2022 10:18-0400 Body height 167.6 cm [facility] Schedule [facility] 10-06-2022 10:18-0400 Body mass index (BMI) [Ratio] 38.41 kg/m2 [facility] Schedule [facility] 10-06-2022 10:18-0400 Body weight 107.96 kg [facility] Schedule [facility] 10-06-2022 10:18-0400 Diastolic blood pressure 81 mm[Hg] [facility] Schedule [facility] 10-06-2022 10:18-0400 Heart rate 94 /min [facility] Schedule [facility] 10-06-2022 10:18-0400 Systolic blood pressure 122 mm[Hg] [facility] Schedule [facility] 10-06-2022 09:16-0400 Body mass index (BMI) [Ratio] 38.58 kg/m2 Perry Mckeon MD Work Phone: [facility] 10-06-2022 09:16-0400 Body weight 108.41 kg Perry Mckeon MD Work Phone: [facility] 10-06-2022 09:16-0400 Diastolic blood pressure 81 mm[Hg] Perry Mckeon MD Work Phone: [facility] 10-06-2022 09:16-0400 Heart rate 80 /min Perry Mckeon MD Work Phone: [facility] 10-06-2022 09:16-0400 Systolic blood pressure 122 mm[Hg] Perry Mckeon MD Work Phone: [facility] 04-14-2022 12:07-0500 Diastolic blood pressure 61 mm[Hg] AUBREY FROMMELT DO [facility] 04-14-2022 12:07-0500 Heart rate 110 /min AUBREY FROMMELT DO [facility] 04-14-2022 12:07-0500 Respiratory rate 18 /min AUBREY FROMMELT DO [facility] 04-14-2022 12:07-0500 Systolic blood pressure 121 mm[Hg] AUBREY FROMMELT DO [facility] 04-14-2022 10:30-0500 Heart rate 104 /min AUBREY FROMMELT DO [facility] 04-14-2022 10:30-0500 Respiratory rate 18 /min AUBREY FROMMELT DO [facility] 04-14-2022 10:29-0500 Heart rate 118 /min AUBREY FROMMELT DO [facility] 04-14-2022 10:29-0500 Respiratory rate 20 /min AUBREY FROMMELT DO [facility] 04-14-2022 09:43-0500 Body temperature 99.14 [degF] AUBREY CASTILLO DO [facility] 04-14-2022 09:43-0500 Body weight 98.2 kg AUBREY CASTILLO DO [facility] 04-14-2022 09:43-0500 Diastolic Blood Pressure Non-Invasive 98 1 AUBREY CASTILLO DO [facility] 04-14-2022 09:43-0500 Systolic Blood Pressure Non-Invasive 146 1 AUBREY CASTILLO DO [facility] 01-12-2022 21:38-0400 Body temperature 98.06 [degF] DR OBED COURTNEY MD [facility] 01-12-2022 21:38-0400 Diastolic blood pressure 69 mm[Hg] DR OBED COURTNEY MD [facility] 01-12-2022 21:38-0400 Heart rate 80 /min DR OBED COURTNEY MD [facility] 01-12-2022 21:38-0400 Respiratory rate 16 /min DR OBED COURTNEY MD [facility] 01-12-2022 21:38-0400 Systolic blood pressure 103 mm[Hg] DR OBED COURTNEY MD [facility] 12-30-2021 01:11-0400 Heart rate 98 /min MAGNUS OH MD [facility] 12-30-2021 01:11-0400 Respiratory rate 20 /min MAGNUS OH MD [facility] 12-30-2021 00:36-0400 Body temperature 98.42 [degF] MAGNUS OH MD [facility] 12-30-2021 00:36-0400 Diastolic blood pressure 79 mm[Hg] MAGNUS OH MD [facility] 12-30-2021 00:36-0400 Heart rate 100 /min MAGNUS OH MD [facility] 12-30-2021 00:36-0400 Respiratory rate 22 /min MAGNUS OH MD [facility] 12-30-2021 00:36-0400 Systolic blood pressure 131 mm[Hg] MAGNUS OH MD [facility] 10-12-2021 20:58-0400 Body height 167.6 cm Berto Carrera MD Work Phone: [facility] 10-12-2021 20:58-0400 Body temperature 98.6 [degF] Berto Carrera MD Work Phone: [facility] 10-12-2021 20:58-0400 Diastolic blood pressure 71 mm[Hg] Berto Carrera MD Work Phone: [facility] 10-12-2021 20:58-0400 Heart rate 92 /min Berto Carrera MD Work Phone: [facility] 10-12-2021 20:58-0400 Respiratory rate 12 /min Berto Carrera MD Work Phone: [facility] 10-12-2021 20:58-0400 SaO2% (BldA) [Mass fraction] 95 % Berto Carrera MD Work Phone: [facility] 10-12-2021 20:58-0400 Systolic blood pressure 116 mm[Hg] Berto Carrera MD Work Phone: [facility] 05-14-2020 15:13-0500 BMI (Body Mass Index) 33.9 kg/m2 Lacey Javed [facility] Work Phone: 05-14-2020 15:050 Body weight 95.26 kg Lacey Javed [facility] Work Phone: 05-14-2020 15:050 BSA (Body Surface Area) 2.04 m2 Lacey Javed [facility] Work Phone: 05-14-2020 15:050 Height 167.64 cm Lacey Javed [facility] Work Phone: Encounters Encounter Date Encounter Type Care Provider Facility Start: 12-11-2024 ambulatory Moses Glendo Facility :[facility] Start: 11-28-2024 ambulatory Moses Friend Facility :[facility] Start: 11-26-2024 ambulatory Moses Montalvo Facility :[facility] Start: 11-15-2024 ambulatory Moses Montalvo Facility :[facility] Start: 11-08-2024 ambulatory Shailesh Schneider Facility:[facility] Start: 11-02-2024 End: 11-02-2024 ambulatory Nataliya Gomez Facility:[facility] Start: 10-24-2024 End: 10-24-2024 ambulatory Nataliya Gomez MD Work Phone: [facility] Work Phone: Start: 10-24-2024 End: 10-24-2024 Patient encounter procedure Moses Montalvo DO -Laboratory Work Phone: Start: 10-24-2024 End: 10-24-2024 Patient encounter procedure Moses Montalvo DO -[facility] Work Phone: Start: 10-24-2024 End: 10-24-2024 ambulatory Moses Friend Facility:[facility] Start: 10-24-2024 End: 10-24-2024 ambulatory Moses Friend Facility:[facility] Start: 10-23-2024 End: 10-23-2024 Emergency department patient visit Nataliya Gomez MD Work Phone: -Emergency Department Work Phone: Start: 10-21-2024 End: 10-21-2024 Orders Only Valeri Kwok MD Work Phone: [facility]ED[facility] Start: 10-16-2024 End: 10-16-2024 Telephone encounter Valeri Kwok MD Work Phone: [facility] Comment on above: Medication Problem Medication Problem ( Patient states the Slynd is not covered and wants to know if she get get another medication prescribed. She states she wants to continue not having periods and doesn't want it to cause weight gain. Please call and advise. Thank you.) Start: 10-16-2024 End: 10-16-2024 Office outpatient visit 15 minutes Valeri Kwok MD Work Phone: [facility] Comment on above: Weight gain (Primary Dx); Encounter for initial prescription of contraceptive pills Start: 10-16-2024 End: 10-16-2024 ambulatory VALERI KWOK [facility] Start: 10-03-2024 End: 10-03-[address] Ar Villarreal MD -Laboratory Specimen Work Phone: Start: 10-03-2024 End: 10-03-2024 ambulatory [facility] Facility:[facility] Start: 09-23-2024 End: 09-25-2024 Telephone encounter Valeri Kwok MD Work Phone: [facility] Comment on above: Medication Problem Start: 09-05-2024 End: 09-06-2024 Telephone encounter Megan Rockwell CNP Work Phone: [facility] Start: 09-04-2024 End: 09-04-2024 ambulatory Tiesha Valles RN [facility] Clinical Communication Start: 09-04-2024 End: 09-04-2024 Patient encounter procedure Tiesha Valles RN [facility] Clinical Communication Start: 08-22-2024 End: 08-22-2024 ambulatory [facility] Start: 08-19-2024 End: 08-19-2024 ambulatory Nataliya Gomez MD Work Phone: [facility] Work Phone: Start: 08-19-2024 End: 08-19-[address] Nataliya Gomez MD -Radiology, [place] Work Phone: Start: 08-19-2024 End: 08-19-2024 ambulatory Nataliya Patricia Facility:[facility] Start: 08-15-2024 End: 08-15-2024 Patient encounter procedure Megan Mason APRN - MANAGER HRIS Work Phone: [facility] Comment on above: Intractable chronic migraine without aura and without status migrainosus (Primary Dx) Start: 08-15-2024 End: 08-15-2024 ambulatory [facility] Start: 07-29-2024 End: 07-29-2024 Telephone encounter Megan Mason APRN - MANAGER HRIS Work Phone: [facility] Neurology [facility] Comment on above: Advice Only Start: 07-06-2024 End: 07-09-2024 Refill Claudia Hall MD Work Phone: [facility] Comment on above: Encounter for survei llance of contraceptive pills Start: 07-02-2024 End: 07-04-2024 amb[facility] Start: 07-02-2024 End: 07-04-2024 Patient encounter procedure [facility] Start: 07-02-2024 End: 07-04-2024 Telephone encounter Megan Mason APRN - MANAGER HRIS Work Phone: [facility] Comment on above: Medication Question Med Management Start: 07-01-2024 End: 07-01-2024 Refill Megan Mason APRN - MANAGER HRIS Work Phone: [facility] Clinical Communication Start: 06-06-2024 End: 06-06-2024 ambulatory CHALCJ PATRICIA [facility] Start: 05-23-2024 End: 05-23-2024 Patient encounter procedure Megan Mason CABIN EQUIPMENT SUPERVISOR - MANAGER HRIS Work Phone: [facility] Comment on above: Intractable chronic migraine without aura and without status migrainosus (Primary Dx) Start: 05-23-2024 End: 05-23-2024 ambulatory CHALON PATRICIA [facility] Start: 04-15-2024 End: 04-15-2024 Refill Megan Mason CABIN EQUIPMENT SUPERVISOR - MANAGER HRIS Work Phone: [facility] Start: 04-15-2024 End: 04-15-2024 ambulatory Chalcj Patricia Facility:[facility] Start: 04-05-2024 End: 04-05-2024 Refill Claudia Hall MD Work Phone: [facility] Comment on above: Encounter for survei llance of contraceptive pills Start: 03-14-2024 End: 03-14-2024 ambulatory CHALCJ PATRICIA [facility] Start: 02-28-2024 End: 02-28-2024 ambulatory CHALCJ PATRICIA [facility] Start: 02-28-2024 End: 02-28-2024 Patient encounter procedure Megan Mason CABIN EQUIPMENT SUPERVISOR - MANAGER HRIS Work Phone: [facility] Comment on above: Intractable chronic migraine without aura and without status migrainosus (Primary Dx) Start: 02-01-2024 End: 02-01-2024 Refill Megan Mason CABIN EQUIPMENT SUPERVISOR - MANAGER HRIS Work Phone: [facility] Clinical Communication Start: 01-30-2024 End: 01-31-2024 Telephone encounter Megan Mason CABIN EQUIPMENT SUPERVISOR - MANAGER HRIS Work Phone: [facility] Comment on above: Reschedule Start: 01-12-2024 ambulatory Chalon Patricia Facility:[facility] Start: 01-11-2024 End: 02-16-2024 Telephone encounter Clare Maurice [facility] Neurol marisel - Radhika Saez Comment on above: Other (Botox Deliver y RX [facility]) Start: 01-04-2024 End: 01-05-2024 Refill Drea Preciado MD Work Phone: [facility] Comment on above: Encounter for survei llance of contraceptive pills Start: 01-01-2024 End: 01-01-2024 Telephone encounter Valeri Kwok MD Work Phone: [facility] Comment on above: Results Start: 12-21-2023 End: 12-21-2023 ambulatory NATALIYA GOMEZ [facility] Start: 12-13-2023 End: 12-13-2023 Patient encounter procedure Valeri Kwok MD Work Phone: [facility] Work Phone: Start: 12-13-2023 End: 12-13-2023 Periodic preventive med est patient 18-39 yrs Valeri Kwok MD Work Phone: [facility] Comment on above: Well woman exam with routine gynecological exam (Primary Dx); Dysuria; Cervical cancer screening; Vaginal itching; Stress incontinence of urine Start: 12-13-2023 End: 12-13-2023 ambulatory VALERI KWOK [facility] Start: 12-13-2023 End: 12-13-2023 Encounter for gynecological examination (general) (routine) without abnormal findings VALERI KWOK [facility] Start: 11-19-2023 Refill Drea Soto Work Phone: [facility] Comment on above: Encounter for survei llance of contraceptive pills Start: 10-31-2023 End: 10-31-2023 Patient encounter procedure Megan Mason APRN - MANAGER HRIS Work Phone: [facility] Comment on above: Intractable chronic migraine without aura and without status migrainosus (Primary Dx) Start: 10-17-2023 ambulatory [facility] Start: 10-17-2023 Patient encounter procedure [facility] Start: 10-05-2023 Refill Megan salazar CABIN EQUIPMENT SUPERVISOR - MANAGER HRIS Work Phone: [facility] Clinical Communication Start: 09-11-2023 Refill Drea Soto Work Phone: [facility] Comment on above: Encounter for survei llance of contraceptive pills Start: 08-25-2023 Telephone encounter Megan Bergman CABIN EQUIPMENT SUPERVISOR - MANAGER HRIS Work Phone: [facility] Comment on above: Botulinum Toxin Inje ction Start: 08-17-2023 End: 08-17-2023 Office outpatient visit 15 minutes Megan Mason CABIN EQUIPMENT SUPERVISOR - MANAGER HRIS Work Phone: [facility] Comment on above: Intractable chronic migraine without aura and without status migrainosus (Primary Dx) Start: 07-27-2023 End: 07-27-2023 ambulatory [facility] Work Phone: Start: 07-27-2023 End: 07-27-2023 Patient encounter procedure [facility] Work Phone: Start: 06-29-2023 Telephone encounter Megan Bergman CABIN EQUIPMENT SUPERVISOR - MANAGER HRIS Work Phone: [facility] Comment on above: Results Start: 06-21-2023 End: 06-21-2023 Patient encounter procedure Megan Mason CABIN EQUIPMENT SUPERVISOR - MANAGER HRIS Work Phone: [facility] Comment on above: Intractable chronic migraine without aura and without status migrainosus (Primary Dx) Start: 05-23-2023 End: 05-23-2023 Subsequent hospital visit by physician Megan Mason APRN - MANAGER HRIS Work Phone: [facility] Comment on above: Intractable chronic migraine without aura and without status migrainosus Start: 05-15-2023 Telephone encounter Megan Bergman CABIN EQUIPMENT SUPERVISOR - MANAGER HRIS Work Phone: [facility] Start: 05-12-2023 Refill Margret Whitt [facility] Start: 05-11-2023 End: 05-11-2023 Office outpatient visit 25 minutes Megan Mason CABIN EQUIPMENT SUPERVISOR - MANAGER HRIS Work Phone: [facility] Comment on above: Intractable chronic migraine without aura and without status migrainosus (Primary Dx) Start: 04-14-2023 End: 04-14-2023 ambulatory [facility] Work Phone: Start: 04-14-2023 End: 04-14-2023 Patient encounter procedure [facility], [facility] Work Phone: Start: 04-11-2023 End: 04-11-2023 [facility] Start: 04-11-2023 End: 04-11-2023 [facility] Start: 03-16-2023 Refill Meganemma salazar CABIN EQUIPMENT SUPERVISOR - MANAGER HRIS Work Phone: [facility] Start: 02-18-2023 End: 02-18-2023 Emergency department patient visit DR MONTANA JUSTICE MD Facility:[facility] Start: 02-18-2023 End: 02-18-2023 Emergency department patient visit DR MONTANA JUSTICE MD [facility] Start: 12-19-2022 Telephone encounter Megan Bergman CABIN EQUIPMENT SUPERVISOR - MANAGER HRIS Work Phone: [facility] Comment on above: Advice Only Start: 12-18-2022 End: 12-18-2022 Emergency department patient visit HELGA PEHLPS MD Facility:[facility] Start: 12-18-2022 End: 12-18-2022 Emergency department patient visit HELGA PHELPS MD [facility] Start: 12-15-2022 Telephone encounter Megan Vlad Vazquez CABIN EQUIPMENT SUPERVISOR - MANAGER HRIS Work Phone: [facility] Comment on above: Discuss Medications Start: 10-06-2022 Telephone encounter Isabella BREAUX [facility] Clinical Communication Comment on above: pt returning call. O ffice called to change depo appt locatio (pt returning call. Office called to change depo appt location) Start: 10-06-2022 End: 10-06-2022 Patient encounter procedure [facility] Schedule [facility] Comment on above: Encounter for survei llance of injectable contraceptive Start: 10-06-2022 End: 10-06-2022 Office outpatient new 45 minutes Perry Mckeon MD Work Phone: [facility] Comment on above: Intractable chronic migraine without aura and without status migrainosus (Primary Dx); Medication overuse headache Start: 04-14-2022 End: 04-14-2022 Emergency department patient visit AUBREY RENEEJaquan DO [facility] Start: 01-12-2022 End: 01-12-2022 Emergency department patient visit DR OBED COURTNEY MD [facility] Start: 12-30-2021 End: 12-30-2021 Emergency department patient visit MAGNUS OH MD [facility] Start: 10-12-2021 End: 10-12-2021 Emergency department patient visit Berto Carrera MD Work Phone: [facility] Comment on above: 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) Start: 07-23-2021 End: 07-23-[address] BEBA HUMPHREYS DO [facility] Start: 03-29-2021 End: 03-29-[address] BEBA HUMPHREYS DO [facility] Start: 10-12-2018 Patient encounter procedure RAVIN COLLIER Facility:[facility] Start: 09-04-2018 End: 09-04-2018 Patient encounter procedure OBED SAMSON Facility:[facility] Start: 08-21-2018 Patient encounter procedure OBED SAMSON Facility:[facility] Start: 08-14-2018 Patient encounter procedure OBED SAMSON Facility:[facility] Start: 07-31-2018 End: 07-31-2018 Patient encounter procedure OBED SAMSON Facility:[facility] Start: 07-17-2018 End: 07-17-2018 Patient encounter procedure OBED SAMSON Facility:[facility] Start: 07-05-2018 Patient encounter procedure OBED SAMSON Facility:[facility] Procedures Date Procedure Procedure Detail Performing Clinician Start: 10-24-2024 Antibody to centrome re measurement Nataliya Gomez MD Work Phone: Comment on above: Test not performed Start: 10-24-2024 Antibody to extracta ble nuclear antigen measurement Nataliya Gomez MD Work Phone: Comment on above: Test not performed Start: 10-24-2024 Antibody to KAYKAY-1 measurement Nataliya Gomez MD Work Phone: Comment on above: Test not performed Start: 10-24-2024 Autoantibody measurement Nataliya Gomez MD Work Phone: Comment on above: Test not performed Start: 10-24-2024 [employer] BUSINESS INTELLIGENCE CONSULTANT antibody measurement Nataliya Gomez MD Work Phone: Comment on above: Test not performed Start: 10-24-2024 Serum inorganic phos phate measurement Nataliya Gomez MD Work Phone: Start: 10-23-2024 Urnls dip stick/tabl et reagent auto microscopy Nataliya Gomez MD Work Phone: Start: 10-23-2024 Bacteria identificat ion test Nataliya Gomez MD Work Phone: Start: 10-23-2024 End: 10-23-2024 Polymerase chain reaction analysis Nataliya Gomez MD Work Phone: Start: 10-23-2024 Streptococcus pyogen es rRNA assay Nataliya Gomze MD Work Phone: Start: 10-23-2024 Trichomonas vaginali s detection Nataliya Gomez MD Work Phone: Start: 10-03-2024 Bacteria identificat ion test Nataliya Gomez MD Work Phone: Start: 08-19-2024 X-ray of lumbar spin e, two or three views Nataliya Gomez MD Work Phone: Start: 12-13-2023 Culture bacterial quanttative colony count urine Valeri Kwok MD Work Phone: Start: 12-13-2023 Urnls dip stick/tabl et rgnt non-auto w/o micrscp Valeri Kwok MD Work Phone: Start: 12-13-2023 Microscopic observat ion [Identifier] in Cervix by Cyto stain Valeri Kwok MD Work Phone: Start: 07-27-2023 X-ray of lumbosacral spine Start: 04-14-2023 Radiography of esophagus Start: 06-01-2020 Endoscopy - Upper GI El joey Javed Start: 05-14-2020 Blood count complete auto&auto difrntl wbc Lacey Javed Start: 05-14-2020 C-reactive protein Debby Javed Start: 05-14-2020 CELIAC DISEASE SEROL OGY PANEL Lacey Javed Start: 05-14-2020 Comprehensive metabo lic 2000 panel Lacey Javed Start: 05-14-2020 TSH WITH REFLEX TO F REE T4 IF ABNORMAL Lacey Javed Start: 05-14-2020 Ultrasound Gallbladder Lacey Javed Appendectomy Lacey Javed Appendectomy DR BEBA HUMPHREYS DO Arthroscopy of knee DR BEBA HUMPHREYS DO Comment on above: left acl section Lacey Taylor er section DR BEBA GUAJARDO DO Repair of tendo achilles Lara Javed Plan of Treatment Date Care Activity Detail Author Start: 08-10-2066 RSV Immunization for Adults (1 - 1-dose 75+ series) RSV Immunization for Adults (1 - 1-dose 75+ series) [facility] Start: 2051 RSV Immunization aged 60 or older (1 - 1-dose 60+ series) RSV Immunization aged 60 or older (1 - 1-dose 60+ series) [facility] Start: 08-10-2041 Zoster Vaccines (1 of 2) Zoster Vaccines (1 of 2) [facility] Start: 12-12-2026 Screening for malignant neoplasm of cervix [facility] Start: 02-03-2025 Influenza vaccination Influenza Vaccine (Season Ended) [facility] Start: 01-22-2025 End: 01-22-2025 Patient encounter procedure 01/22/2025 12:00 PM EDT Office Visit [facility] Obstetrics [facility]necology - [place] [address] [place] [address] Valeri Kwok MD [address] [place] [address] [facility]s [facility] - [place] Start: 11-07-2024 End: 11-07-2024 Patient encounter procedure [facility] Start: 10-24-2024 Acute hepatitis 2000 panel - Serum [facility] Start: 10-24-2024 Catecholamines [Moles/volume] in Plasma [facility] Start: 10-24-2024 Celiac disease screen [facility] Start: 10-24-2024 Chromogranin A measurement [facility] Start: 10-24-2024 Erythropoietin (EPO) [Units/volume] in Serum or Plasma [facility] Start: 10-24-2024 Gastrin [Mass/volume] in Serum or Plasma [facility] Start: 10-24-2024 Immunoglobulin measurement [facility] Start: 10-24-2024 Serum immunofixation [facility] Start: 10-24-2024 [facility] Start: 10-23-2024 [facility] Start: 10-23-2024 Polymerase chain reaction analysis [facility] Start: 10-23-2024 Chlamydia/Neisseria (PCR) Chlamydia/Neisseria (PCR) [facility] Start: 10-23-2024 Throat culture Throat Culture [facility] Start: 10-16-2024 End: 10-16-2024 Patient encounter procedure 10/16/2024 12:00 PM EDT Office Visit [facility] Obstetrics and Gynecology - [place] [address] [place] [phone] Valeri Kwok MD [address] [place] [address] [facility] - [place] Start: 08-22-2024 End: 08-22-2024 Patient encounter procedure 08/22/2024 11:30 AM EDT Office Visit [facility]s [facility]necology - [place] [address] [place] [phone] [facility] [place] Start: 08-15-2024 End: 08-15-2024 Patient encounter procedure 08/15/2024 2:00 PM EDT Procedure Visit [facility] [address] [facility] [address] [place] [id number] Megan Mason APRN - ROBERT [address] [facility] [address] [place] [address] [facility] Start: 06-06-2024 End: 06-06-2024 Patient encounter procedure 06/06/2024 2:00 PM EST Office Visit [facility] Ob[facility]etrics [facility] Gynecology - [place] [address] [place] [phone] [facility] - [place] Start: 06-05-2024 Medicare Advantage Annual Wellness Visit Medicare Advantage Annual Wellness Visit [facility] Start: 05-22-2024 End: 05-22-2024 Patient encounter procedure 05/22/2024 1:30 PM EST Procedure Visit [facility] [address] [place] [id number] Megan Mason APRN - CNP [address] [place] [address] [facility] Start: 03-14-2024 End: 03-14-2024 Patient encounter procedure [facility] Start: 02-28-2024 End: 02-28-2024 Patient encounter procedure [facility] Start: 02-04-2024 COVID-19 Vaccine ( season) COVID-19 Vaccine ( season) [facility] Start: 02-04-2024 COVID-19 Vaccine ( season) COVID-19 Vaccine ( season) [facility] Start: 02-04-2024 Influenza vaccination [facility] Start: 01-25-2024 End: 01-25-2024 Patient encounter procedure 01/25/2024 1:00 PM EDT Procedure Visit [facility] [address] [facility] [address] [place] [phone] Megan Mason APRN - MANAGER HRIS [address] [place] [address] [facility] Start: 01-23-2024 End: 01-23-2024 Patient encounter procedure 01/23/2024 1:00 PM EDT Procedure Visit [facility] [address] [place] [phone] Megan Mason APRN - MANAGER HRIS [address] [place] [address] [facility] Start: 01-16-2024 End: 01-16-2024 ambulatory 01/16/2024 2:15 PM EDT Evaluation [address] [place] [phone] Valeri Kwok MD [address] [facility] [address] Shelly Mcguire, PT [facility] Start: 12-21-2023 End: 12-21-2023 Patient encounter procedure 12/21/2023 2:00 PM EDT Office Visit [facility] [address] [facility] [address] [place] [address] [facility] Start: 12-06-2023 End: 12-06-2023 Patient encounter procedure 12/06/2023 1:00 PM EDT Office Visit [facility] [address] [place] [address] [facility] Start: 11-22-2023 End: 11-22-2023 Patient encounter procedure 11/22/2023 1:00 PM EDT Office Visit [facility] [address] [place] [address] Valeri Kwok MD [address] [place] [address] [facility] Start: 10-31-2023 End: 10-31-2023 Patient encounter procedure 10/31/2023 1:00 PM EDT Procedure Visit [facility] [address] [place] [phone] Megan Mason APRN - MANAGER HRIS [address] [place] [address] [facility] Start: 10-24-2023 End: 10-24-2023 Patient encounter procedure 10/24/2023 8:30 AM EDT Procedure Visit [facility] [address] [place] [phone] Megan Mason APRN - MANAGER HRIS [address] [place] [address] [facility] Start: 09-20-2023 End: 09-20-2023 Patient encounter procedure 09/20/2023 1:00 PM EDT Office Visit [facility] [address] [place] [phone] [facility] Start: 09-14-2023 End: 09-14-2023 Patient encounter procedure 09/14/2023 2:00 PM EDT Procedure Visit [facility] [address] [place] [phone] Megan Mason APRN - MANAGER HRIS [address] [place] [address] [facility] Start: 09-13-2023 End: 09-13-2023 Patient encounter procedure 09/13/2023 1:00 PM EDT Office Visit [facility] [address] [place] [phone] [facility] Start: 08-08-2023 End: 08-08-2023 Patient encounter procedure 08/08/2023 2:00 PM EST Office Visit [facility] [address] [place] [phone] Megan Mason APRN - MANAGER HRIS [address] [place] [address] [facility] Start: 06-27-2023 End: 06-27-2023 Patient encounter procedure 06/27/2023 1:00 PM EST Office Visit [facility] [address] [place] [phone] [facility] Start: 06-21-2023 End: 06-21-2023 Patient encounter procedure 06/21/2023 12:30 PM EST Procedure Visit [facility] [address] [place] [phone] Megan Mason APRN - MANAGER HRIS [address] [place] [address] [facility] Start: 06-05-2023 Medicare Advantage Annual Wellness Visit Medicare Advantage Annual Wellness Visit [facility] Start: 05-24-2023 End: 05-24-2023 Patient encounter procedure 05/24/2023 2:30 PM EST Procedure Visit [facility] [address] [place] [phone] Megan Mason APRN - MANAGER HRIS [address] [place] [address] [facility] Start: 05-23-2023 End: 05-23-2023 Patient encounter procedure 05/23/2023 2:30 PM EST Appointment [facility] [address] [place] [phone] Megan Mason APRN - MANAGER HRIS [address] [place] [address] [facility] Start: 05-11-2023 End: 05-11-2024 MR Brain WO and W contrast IV MR brain w and wo contrast Imaging Routine Intractable chronic migraine without aura and without status migrainosus Expected: 05/11/2023, Expires: 05/11/2024 [facility] Work Phone: Comment on above: Expected: 05/11/2023, Expires: Start: 04-11-2023 End: 04-11-2023 Patient encounter procedure 04/11/2023 11:00 AM EST Office Visit [facility] [address] [place] [address] [facility] Start: 02-15-2023 End: 02-15-2023 Patient encounter procedure 02/15/2023 10:30 AM EDT Office Visit [facility] [address] [place] [phone] Megan Mason APRN - CNP [address] [place] [address] [facility] Start: 02-03-2023 COVID-19 Vaccine ( season) COVID-19 Vaccine ( season) [facility] Start: 02-03-2023 Influenza vaccination [facility] Start: 12-22-2022 End: 12-22-2022 Patient encounter procedure [facility] Start: 11-11-2022 End: 11-11-2022 Patient encounter procedure 11/11/2022 Office Visit Obstetrics and Gynecology Claudia Hall MD [address] [place] [address] [facility] Start: 11-11-2022 End: 11-11-2022 Patient encounter procedure 11/11/2022 Office Visit Neurology Megan Mason APRN - MANAGER HRIS [address] [place] [address] [facility] Start: 02-03-2022 Influenza vaccination Flu vaccine (Season Ended) [facility] Start: 12-29-2021 End: 12-29-2021 Patient encounter procedure 12/29/2021 Office Visit Obstetrics and Gynecology Valeri Kwok MD [address] [place] [address] [facility] Start: 08-10-2021 Screening for malignant neoplasm of cervix [facility] Start: 09-11-2017 DTaP/Tdap/Td vaccine (5 - Td or Tdap) DTaP/Tdap/Td vaccine (5 - Td or Tdap) [facility] Start: 09-11-2017 DTaP/Tdap/Td Vaccines (5 - Td or Tdap) DTaP/Tdap/Td Vaccines (5 - Td or Tdap) [facility] Start: 09-11-2017 DTaP/Tdap/Td Vaccines (8 - Td or Tdap) DTaP/Tdap/Td Vaccines (8 - Td or Tdap) [facility] Start: 09-11-2017 DTaP/Tdap/Td Vaccines (9 - Td or Tdap) DTaP/Tdap/Td Vaccines (9 - Td or Tdap) [facility] Start: 05-18-2017 Pneumococcal 0-64 years Vaccine (2 - PCV) Pneumococcal 0-64 years Vaccine (2 - PCV) [facility] Start: 05-18-2017 Pneumococcal Vaccine: Pediatrics (0 to 5 Years) and At-Risk Patients (6 to 49 Years) (2 of 2 - PCV) Pneumococcal Vaccine: Pediatrics (0 to 5 Years) and At-Risk Patients (6 to 49 Years) (2 of 2 - PCV) [facility] Start: 05-18-2017 Pneumococcal Vaccine: Pediatrics (0 to 5 Years) and At-Risk Patients (6 to 64 Years) (2 - PCV) Pneumococcal Vaccine: Pediatrics (0 to 5 Years) and At-Risk Patients (6 to 64 Years) (2 - PCV) [facility] Start: 05-18-2017 Pneumococcal Vaccine: Pediatrics (0 to 5 Years) and At-Risk Patients (6 to 64 Years) (2 of 2 - PCV) Pneumococcal Vaccine: Pediatrics (0 to 5 Years) and At-Risk Patients (6 to 64 Years) (2 of 2 - PCV) [facility] Start: 08-10-2012 Screening for malignant neoplasm of cervix Pap smear [facility] Start: 09-02-2010 Hepatitis B vaccine (2 of 3 - 3-dose primary series) Hepatitis B vaccine (2 of 3 - 3-dose primary series) [facility] Start: 09-02-2010 Hepatitis B Vaccines (2 of 3 - 3-dose series) Hepatitis B Vaccines (2 of 3 - 3-dose series) [facility] Start: 08-10-2009 Diabetes mellitus screening Diabetes Screening [facility] Start: 08-10-2009 Hepatitis C screening [facility] Start: 05-16-2008 Varicella vaccination [facility] Start: 08-10-2006 HIV screening HIV screen [facility] Start: 2003 Depression Monitoring Depression Monitoring [facility] Start: 2003 Depression Screen Depression Screen [facility] Start: 2003 Depresssion Monitoring Depresssion Monitoring [facility] Start: 08-10-1996 COVID-19 Vaccine (1) COVID-19 Vaccine (1) [facility] Start: 08-10-1992 Varicella vaccine (1 of 2 - 2-dose childhood series) Varicella vaccine (1 of 2 - 2-dose childhood series) [facility] Start: 02-11-1992 COVID-19 Vaccine (#1) COVID-19 Vaccine (#1) [facility] Start: 1991 HIV screening HIV Screening [facility] Start: 1991 Lipid panel Lipid Panel [facility] Start: 1991 Medicare Advantage Annual Wellness Visit (AWV) Medicare Advantage Annual Wellness Visit (AWV) [facility] Albumin [Moles/volum e] in Serum or Plasma [facility] Albumin/Globulin ratio [facility] Antibody to lupus [place] protein measurement [facility] Antibody to SS-A measurement [facility] Bacteria identified in Throat by Culture [facility] Chitobioside IgA Ab [Units/volume] in Serum or Plasma by Immunoassay [facility] Clam IgE Ab [Units/v olume] in Serum [facility] Codfish IgE Ab [Units/volume] in Serum [facility] [place] IgE Ab [Units/v olume] in Serum [facility] Cow milk IgE Ab [Units/volume] in Serum [facility] Cytology Cervical or vaginal smear or scraping study Pap Smear Pathology and Cytology Routine Well woman exam with routine gynecological exam Cervical cancer screening 12/13/2023 2:23 PM EDT [facility] Work Phone: DNA double strand Ab [Units/volume] in Serum [facility] DOPamine [Mass/volum e] in Serum or Plasma [facility] Egg white [facility] Electrophoresis: [id number] [facility] Electrophoresis: adarsh ma globulin [facility] EPINEPHrine [Mass/vo lume] in Plasma [facility] Globulin measurement [facility] Hepatitis A virus Ig M Ab [Presence] in Serum [facility] Hepatitis B core ant ibody measurement, IgM type [facility] Hepatitis B surface antigen measurement [facility] Hepatitis C antibody measurement [facility] IgA [Mass/volume] in Serum or Plasma [facility] IgE [Units/volume] i n Serum or Plasma [facility] IgG [Mass/volume] in Serum or Plasma [facility] IgM [Mass/volume] in Serum or Plasma [facility] JAK2 gene p.[id number] e [Presence] in Blood or Tissue by Molecular genetics method [facility] Laboratory data interpretation [facility] Laminaribioside IgG Ab [Units/volume] in Serum or Plasma by Immunoassay [facility] Liver stiffness by US.transient elastography [facility] Mannobioside IgG Ab [Units/volume] in Serum or Plasma by Immunoassay [facility] Measurement of funga l antibody [facility] End: 05-23-2023 MR Brain WO and W contrast IV [employer] Work Phone: Comment on above: Once for 1 Occurrences starting 05/23/20 23 until 05/23/2023 Neutrophil cytoplasm ic Ab.classic [Units/volume] in Serum [facility] Neutrophil cytoplasm ic Ab.perinuclear.atypical [Titer] in Serum by Immunofluorescence [facility] OUTSIDE PROCEDURE SCAN OUTSIDE P ROCEDURE SCAN Procedures Ordered: 05/22/2023 [employer] Comment on above: Ordered: 05/22/2023 P-ANCA measurement [facility] Patient Education Preventing Vag initis ED Pharyngitis, Report Pending [facility] Work Phone: Patient referral [facility] Work Phone: Peanut IgE Ab [Units/volume] in Serum [facility] Plasma norepinephrin e measurement [facility] Protein electrophore sis panel - Serum or Plasma [facility] Radionuclide gastric emptying study [facility] Radionuclide study o f abdomen [facility] Sesame seed [facility] Shrimp IgE Ab [Units/volume] in Serum [facility] Soybean IgE Ab [Units/volume] in Serum [facility] Tissue transglutamin ase IgA Ab [Units/volume] in Serum [facility] Wheat IgE Ab [Units/ volume] in Serum [facility] Immunizations Immunization Date Immunization Notes Care Provider Rossana stovall 05-18-2016 pneumococcal polysaccharide vaccine, [address] BEBA HUMPHREYS DO [facility] 05-18-2016 influenza virus vacc ine, unspecified formulation [facility]2011 tetanus and diphther ia toxoids, adsorbed, preservative free, for adult use (5 Lf of tetanus toxoid and 2 Lf of diphtheria toxoid) DR BEBA HUMPHREYS DO [facility] 08-05-2010 hepatitis B vaccine, unspecified formulation DR BEBA HUMPHREYS DO [facility] 04-18-[address] BEBA HUMPHREYS DO [facility] 12-13-[address] BEBA HUMPHREYS DO [facility] 09-12-[address] BEBA HUMPHREYS DO [facility] 09-12-2007 meningococcal polysaccharide (groups A, C, Y and W-135) diphtheria toxoid conjugate vaccine (MCV4P) DR BEBA HUMPHREYS DO [facility] 09-12-2007 tetanus and diphther ia toxoids, adsorbed, preservative free, for adult use (5 Lf of tetanus toxoid and 2 Lf of diphtheria toxoid) DR BEBA HUMPHREYS DO [facility] 02-20-2004 diphtheria, tetanus toxoids and acellular pertussis vaccine DR BEBA HUMPHREYS DO [facility] 02-20-2004 measles/mumps/rubell a virus vaccine DR BEBA HUMPHREYS DO [facility] 02-20-[address], inactivated [address] BEBA HUMPHREYS DO [facility] 05-14-1993 diphtheria, tetanus toxoids and acellular pertussis vaccine DR BEBA HUMPHREYS DO [facility] 05-14-1993 diphtheria, tetanus toxoids and acellular pertussis vaccine, unspecified formulation DR BEBA HUMPHREYS DO [facility] 05-14-1993 measles/mumps/rubell a virus vaccine DR BEBA HUMPHREYS DO [facility] 05-14-1993 poliovirus vaccine, inactivated DR BEBA HUMPHREYS DO [facility] 09-28-1992 diphtheria, tetanus toxoids and acellular pertussis vaccine DR BEBA HUMPHREYS DO [facility] 06-25-1992 diphtheria, tetanus toxoids and acellular pertussis vaccine DR BEBA HUMPHREYS DO [facility] 06-25-1992 haemophilus influenz ae type b vaccine, PRP-T conjugate DR BEBA HUMPHREYS DO [facility] 06-05-[address], inactivated [address] BEBA HUMPHREYS DO [facility] 1991 diphtheria, tetanus toxoids and acellular pertussis vaccine DR BEBA HUMPHREYS DO [facility] [address], [address] BEBA HUMPHREYS DO [facility] Payers Date Payer Category Payer Medicaid [facility] MEDICAID ONLY [id number] 2023 Self-pay [id number] 2022 Medicaid [id number] 2022 Medicaid [id number] 2022 Formerly [facility] [id number] 2021 Medicare [employer] MEDICARE ADVANTAGE [facility] [employer] [employer] [id number] 2021-Present [address] [place] [address] Medicare O [id number] 2021 Medicare O [facility] [employer] AD[employer] [id number] 2021 Medicare [id number] 1991 Unknown [id number] 1991 Unknown [id number] ..[id number] 1991 Unknown [id number] 1991 Unknown [id number] 1991 Unknown [id number] 2.840.1.508872.3.579.2.278 1991 Unknown [id number] .0.1.822355.3.579.2.278 1991 Unknown [id number] 2.840.1.232415.3.579.2.278 1991 Unknown [id number] 2.16.840.1.104675.3.579.2.627 1991 Unknown [id number] .840.1.503159.3.579.2.627 1991 Unknown [id number] .840.1.103857.3.579.2.627 Medicaid MEDICAID [id number] Medicare [id number] Unknown COMMERCIAL OTHER [id number] Unknown [id number] .840.1.501667.3.579.2.462 Unknown [id number] .840.1.274326.3.579.2.462 Unknown [id number] .840.1.833613.3.579.2.462 Unknown [id number] .840.1.065893.3.579.2.462 Unknown [id number] .840.1.962007.3.579.2.462 Unknown [id number] .840.1.817477.3.579.2.462 Unknown [id number] .840.1.318438.3.579.2.462 Unknown [id number] 840.1.418612.3.579.2.462 Unknown [id number] .840.1.063273.3.579.2.462 Unknown [id number] .840.1.298880.3.579.2.462 Unknown [id number] .840.1.794986.3.579.2.462 Unknown [id number] .840.1.882393.3.579.2.462 Unknown [id number] .840.1.266640.3.579.2.462 Social History Date Type Detail Facility Start: 08-14-2018 Heavy tobacco smoker (finding) [facility] Start: 1990 Sex Assigned At Female A [facility] Start: 09-22-2018 End: 10-24-2024 Tobacco smoking status NHIS Smokes tobacco daily [employer] Work Phone: Start: 09-22-2018 End: 10-16-2024 Cigarettes smoked current (pack per day) - Reported 0.5 [employer] Work Phone: Start: 09-22-2018 End: 12-21-2023 Tobacco use and exposure Smokeless tobacco non-user [employer] Work Phone: Start: 10-12-2021 End: 10-16-2024 Alcohol intake Lifetime non-drinker (finding) [employer] Work Phone: Start: 09-29-2021 History SDOH Alcohol Frequency 1 [employer] Work Phone: Start: 09-29-2021 History SDOH Social Connections Phone 3 [employer] Phone: Start: 09-29-2021 History SDOH Social Connections Membership 2 [employer] Phone: Start: 09-29-2021 History SDOH Social Connections Living 7 [employer] Phone: Start: 10-02-2021 End: 01-24-2023 Exposure to SARS-CoV-2 (event) Not sure [employer] Phone: History of tobacco use Cigarette Smoker [facility] Start: 12-15-2022 End: 10-16-2024 Tobacco use panel [facility] Start: 03-24-2022 Sexual orientation Heterosexual (fin ding) [facility] Start: 05-22-2020 Tobacco smoking stat us NHIS [facility] Start: 07-16-2019 Cigarettes [facility] Start: 01-03-2022 End: 08-29-2024 Sex Female (finding) [facility] NEGATED: Highlighted row - - [facility] Work Phone: NEGATED: Highlighted row Not [facility] Functional Status Date Assessment Result Facility 04-11-2023 Functional Status Standard Safet y ID band on, Call device within reach, Bed in low position, Wheels locked, Bedside Cart Locked, Safety level maintained [facility] 04-11-2023 Functional Status Mirna reilly [facility] 02-18-2023 Functional Status Independent [facility] 02-18-2023 Functional Status ID band on Mirna [address] [place] 12-18-2022 Functional Status Independent [facility] 12-18-2022 Functional Status Awake Mirna Baer [facility] 04-14-2022 Functional Status Up ad dorita Mirna Baer [facility] 12-30-2021 Functional Status ID band on, Call device within reach, Bed in low position, Wheels locked, Visitor at bedside [facility] NEGATED: Highlighted row Functional performance Functional status health issues are not documented Disease [facility] Work Phone: Mental Status Date Assessment Result Facility 04-11-2023 Mental Status Oriented x 4 [facility] 02-18-2023 Mental Status Orientation Orie nted x 4 [facility] 02-18-2023 Mental Status [facility] 12-18-2022 Mental Status Orientation Orie nted x 4 [facility] 04-14-2022 Mental Status Orientation Orie nted x 4 [facility] 01-12-2022 [facility] Mental Status Oriented x 4 [facility] NEGATED: Highlighted row Cognitive function [Interpretation] Cognitive status health issues are not documented Disease [facility] Work Phone: Clinical Notes 07-30-2020 to 10-24-2024 Note Date & Type Note Facility 10-24-2024 Evaluation note Diagnosis Onset Date Resolution Abdominal pain acute October 24, 2024 10:17am Diarrhea acute October 24, 2024 10:17am [facility] Work Phone: [phone] History of Present illness Narrative* Valeri Kwok MD - 10/21/2024 1:21 PM EDT Ocella - no aura documented in this encounterSNorwalk Memorial HospitalSwzxxr20-24-4847 Telephone encounter Note* Telephone Encounter - Lisa Ragsdale MA - 10/21/2024 7:51 AM EDT Med request/call routed to Dr Kwok and carol valencia sent [facility] [id number] Miscellaneous Notes* Telephone Encounter - Lisa Ragsdale MA - 10/21/2024 7:51 AM EDT Med request/call routed to Dr Kwok and carol valencia sent * Telephone Encounter - Kmi Phan - 10/18/2024 4:43 PM EDT Patient states the Slynd is not covered and wants to know if she get get another medication prescribed. She states she wants to continue not having periods and doesn't want it to cause weight gain. Please call and advise. Thank you. * Telephone Encounter - Lisa Ragsdale MA - 10/16/2024 2:08 PM EDT Images from the original note were not included. Prior Auth Slynd initiated through [employer]. Powell: [id number] PA denied: * Telephone Encounter - Mary Kate Logan - 10/16/2024 12:44 PM EDT Name of caller: Polina Contact phone number: [phone] Relationship to Patient: patient Provider: Kerri Practice: [facility] Chief Complaint/Reason for Call: Pt calling because the Drospirenone (Slynd) 4 MG tablet is not covered by her insurance and is asking if there is some other BC that would be covered. Please advise Best time of day caller can be reached: any Patient advised that office/PCP has 24-48 business hours to return their call: Yes documented in this [facility]05-16-2025 Telephone encounter Note* Telephone Encounter - Kim Phan - 10/18/2024 4:43 PM EDT Patient states the Slynd is not covered and wants to know if she get get another medication prescribed. She states she wants to continue not having periods and doesn't want it to cause weight gain. Please call and advise. Thank you. [facility] HospitalHljjym96-13-3991 Miscellaneous Notes* Telephone Encounter - Kim Phan - 10/18/2024 4:43 PM EDT Patient states the Slynd is not covered and wants to know if she get get another medication prescribed. She states she wants to continue not having periods and doesn't want it to cause weight gain. Please call and advise. Thank you. * Telephone Encounter - Lisa Ragsdale MA - 10/16/2024 2:08 PM EDT Images from the original note were not included. Prior Auth Slynd initiated through [employer]. Powell: [id number] PA denied: * Telephone Encounter - Mary Kate Logan - 10/16/2024 12:44 PM EDT Name of caller: Polina Contact phone number: [phone] Relationship to Patient: patient Provider: Kerri Practice: [facility] Chief Complaint/Reason for Call: Pt calling because the Drospirenone (Slynd) 4 MG tablet is not covered by her insurance and is asking if there is some other BC that would be covered. Please advise Best time of day caller can be reached: any Patient advised that office/PCP has 24-48 business hours to return their call: Yes documented in this [facility]05-14-2025 Telephone encounter Note* Telephone Encounter - Lisa Ragsdale MA - 10/16/2024 2:08 PM EDT Images from the original note were not included. Prior Auth Slynd initiated through [employer]. [place]: [id number] PA denied: [facility] [id number] Miscellaneous Notes* Telephone Encounter - Lisa Ragsdale MA - 10/16/2024 2:08 PM EDT Images from the original note were not included. Prior Auth Slynd initiated through [employer]. [place]: [id number] PA denied: * Telephone Encounter - Mary Kate Logan - 10/16/2024 12:44 PM EDT Name of caller: Polina Contact phone number: [phone] Relationship to Patient: patient Provider: Kerri Practice: [facility] Chief Complaint/Reason for Call: Pt calling because the Drospirenone (Slynd) 4 MG tablet is not covered by her insurance and is asking if there is some other BC that would be covered. Please advise Best time of day caller can be reached: any Patient advised that office/PCP has 24-48 business hours to return their call: Yes documented in this encounterSNorwalk Memorial HospitalCzytak31-25-9642 Telephone encounter Note* Telephone Encounter - Mary Kate Logan - 10/16/2024 12:44 PM EDT Name of caller: Polina Contact phone number: [phone] Relationship to Patient: patient Provider: Kerri Practice: [facility] Chief Complaint/Reason for Call: Pt calling because the Drospirenone (Slynd) 4 MG tablet is not covered by her insurance and is asking if there is some other BC that would be covered. Please advise Best time of day caller can be reached: any Patient advised that office/PCP has 24-48 business hours to return their call: Yes [facility] HospitalKoiahw03-56-5739 History of Present illness Narrative* Valeri Kwok MD - 10/16/2024 12:00 PM EDT Chief Complaint Patient presents with Contraception Discuss alternative BC Previously on depo, last injection in August Patient noticing weight gain No periods with depo, Denies pelvic pain HPI Pt here for follow up On depo Gained weight ROS: Constitutional - denies fevers or chills Resp - denies CP or SOB CV - denies CP GI - denies nausea, vomiting - denies frequency and dysuria Medical History[1] Surgical History[2] Allergies[3] @MEDCMED@ BP 126/84 Ht 1.676 m (5' 6) Wt 113 kg (249 lb) LMP (LMP Unknown) BMI 40.19 kg/m PE: Well developed, well nourished Normocephalic, atraumatic CV - normal rate Resp - normal effort Abd - soft, ND MS - no edema Neuro - Pt A&Ox3, NAD Skin - warn and dry Psych - normal affect and behavior Polina was seen today for contraception. Diagnoses and all orders for this visit: Weight gain (Primary) Encounter for initial prescription of contraceptive pills Other orders - Drospirenone (Slynd) 4 MG tablet; Take 4 mg by mouth daily. See back in 3 months Slynd Big concern is weight gain Follow up in about 3 months (around 01/16/2025). [1] Past Medical History: Diagnosis Date ADHD (attention deficit hyperactivity disorder) Anxiety 2008 Back pain Bipolar 2 disorder (CMS/HCC) (HCC) Cluster headache Depression 2004 Headache 2021 Headache, tension-type 2021 Insomnia 2004 Migraine 2021 Sleep apnea 2006 [2] Past Surgical History: Procedure Laterality Date ANTERIOR CRUCIATE LIGAMENT REPAIR APPENDECTOMY APPENDECTOMY SECTION (HISTORICAL) [3] Allergies Allergen Reactions Codeine Nausea And Vomiting Other reaction(s): GI Upset Hydrocodone-Acetaminophen Nausea And Vomiting Other reaction(s): GI Upset Ibuprofen Other reaction(s): GI Upset documented in this encounterSNorwalk Memorial [id number] Telephone encounter Note* Telephone Encounter - Lisa Ragsdale MA - 09/23/2024 8:57 AM EDT Call routed to Dr Kwok's Tanesha WADE [facility] HospitalCturtj98-49-8758 Miscellaneous Notes* Telephone Encounter - Lisa Ragsdale MA - 09/23/2024 8:57 AM EDT Call routed to Tanesha Khalil MA * Telephone Encounter - Soniya Balderas - 09/23/2024 8:03 AM EDT Name of caller: Polina Contact phone number: [phone] Relationship to Patient: patient Provider: Dr. Kwok Practice: [facility] Chief Complaint/Reason for Call: Polina states that the Depo injections are causing her to gain alot of weight and she would like to know if she could stop the injections and use a different contraceptive. Please advise. Best time of day caller can be reached: Any Patient advised that office/PCP has 24-48 business hours to return their call: Yes documented in this [facility]04-21-2025 Telephone encounter Note* Telephone Encounter - Soniya Balderas - 09/23/2024 8:03 AM EDT Name of caller: Polina Contact phone number: [phone] Relationship to Patient: patient Provider: Dr. Kwok Practice: [facility] Chief Complaint/Reason for Call: Polina states that the Depo injections are causing her to gain alot of weight and she would like to know if she could stop the injections and use a different contraceptive. Please advise. Best time of day caller can be reached: Any Patient advised that office/PCP has 24-48 business hours to return their call: Yes [facility] HospitalMvnyfg04-15-5182 Telephone encounter Note* Telephone Encounter - Alyssa Jain MA - 09/05/2024 8:21 AM EDT Patient has been contacted [facility] [id number] Miscellaneous Notes* Telephone Encounter - Alyssa Jain MA - 09/05/2024 8:21 AM EDT Patient has been contacted * Telephone Encounter - ANTWAN Marsh CNP - 09/05/2024 8:09 AM EDT Please call pt to set up an appt documented in this encounterSNorwalk Memorial HospitalVsgunu40-01-7157 Telephone encounter Note* Telephone Encounter - ANTWAN Marsh CNP - 09/05/2024 8:09 AM EDT Please call pt to set up an appt [facility] HospitalYatofe40-02-6902 Telephone encounter Note* Telephone Encounter - ANTWAN Marsh CNP - 09/04/2024 9:57 AM EDT Noted [place] [id number] Miscellaneous Notes* Telephone Encounter - ANTWAN Marsh CNP - 09/04/2024 9:57 AM EDT Noted * Telephone Encounter - Alyssa Jain MA - 09/04/2024 9:02 AM EDT patient has been notified of providers message She states she will try one more time and if it happens again she will stop the botox injections * Telephone Encounter - ANTWAN Marsh CNP - 09/04/2024 8:57 AM EDT We will cancel the Botox per her request * Telephone Encounter - Alyssa Jain MA - 09/04/2024 8:47 AM EDT Spoke with patient she stated the symptoms started 1 week after her botox injections. She also has scabs on her head. * Telephone Encounter - Alyssa Jain MA - 09/04/2024 8:46 AM EDT Lm for patient to call the office back, please relay providers message. * Telephone Encounter - ANTWAN Marsh CNP - 09/04/2024 8:25 AM EDT Those symptoms she is having are NOT from the Botox. She needs to contact her PCP * Telephone Encounter - Yane Sotelo RN - 09/04/2024 7:50 AM EDT Having reaction from Botox, flu like symptoms for 3-4 days on head. States she called in and spoke with nurse this AM, was calling back in during office hours to reach someone in office. RN called [facility] neuro backline for further assistance. Office staff advised encounter has been akilah Ryder and she will reach out after reviewed. Patient made aware. States it is not an emergency but just wanted to let her know. No further needsat this time. Patient can be reached at [phone]. * Telephone Encounter - Tiesha Valles RN - 09/04/2024 7:02 AM EDT S: The patient is calling the [facility] about Botox injections B: She received these for headaches about 2 weeks ago A: She is complaining of flu like symptoms for the last 3-4 days as well as some scabs on the top of her head. She states there are 2-3 scabs on the top of the head and they are not near the injection sites. Flu like symptoms include fatigue, body aches and much sleeping. She is not vomiting nor does she have a fever. These started a week post and have been present for 3-4 weeks. She has had this with the previous injections. She admits there are no emergent symptoms; no facial swelling, mouth swelling or lip swelling. She denies difficulty breathing or wheezing. R: She is notifying the office that she does not want the Botox anymore - she admits that it does help her headaches; they are 85% better with the injections but she does not like these side effects. Reviewed office hours with her. Reason for Disposition Nursing judgment Protocols used: Information Only Call - No Bxripo-VAMAZ-ZU documented in this encounterSNorwalk Memorial HospitalSsevub25-86-1833 Telephone encounter Note* Telephone Encounter - Alyssa Jain MA - 09/04/2024 9:02 AM EDT patient has been notified of providers message She states she will try one more time and if it happens again she will stop the botox injections [facility] HospitalSkxygc67-39-0500 Telephone encounter Note* Telephone Encounter - ANTWAN Marsh CNP - 09/04/2024 8:57 AM EDT We will cancel the Botox per her request [facility] HospitalGxpron20-09-4078 Telephone encounter Note* Telephone Encounter - Alyssa Jain MA - 09/04/2024 8:47 AM EDT Spoke with patient she stated the symptoms started 1 week after her botox injections. She also has scabs on her head. [place] [id number] Telephone encounter Note* Telephone Encounter - Alyssa Jain MA - 09/04/2024 8:46 AM EDT Lm for patient to call the office back, please relay providers message. [id number] Telephone encounter Note* Telephone Encounter - ANTWAN Marsh CNP - 09/04/2024 8:25 AM EDT Those symptoms she is having are NOT from the Botox. She needs to contact her PCP [id number] Telephone encounter Note* Telephone Encounter - Yane Sotelo RN - 09/04/2024 7:50 AM EDT Having reaction from Botox, flu like symptoms for 3-4 days on head. States she called in and spoke with nurse this AM, was calling back in during office hours to reach someone in office. RN called [facility] neuro backline for further assistance. Office staff advised encounter has been routedto Britni and she will reach out after reviewed. Patient made aware. States it is not an emergency but just wanted to let her know. No further needsat this time. Patient can be reached at [phone]. [place] [id number] Telephone encounter Note* Telephone Encounter - Tiesha Valles RN - 09/04/2024 7:02 AM EDT S: The patient is calling the [facility] about Botox injections B: She received these for headaches about 2 weeks ago A: She is complaining of flu like symptoms for the last 3-4 days as well as some scabs on the top of her head. She states there are 2-3 scabs on the top of the head and they are not near the injection sites. Flu like symptoms include fatigue, body aches and much sleeping. She is not vomiting nor does she have a fever. These started a week post and have been present for 3-4 weeks. She has had this with the previous injections. She admits there are no emergent symptoms; no facial swelling, mouth swelling or lip swelling. She denies difficulty breathing or wheezing. R: She is notifying the office that she does not want the Botox anymore - she admits that it does help her headaches; they are 85% better with the injections but she does not like these side effects. Reviewed office hours with her. Reason for Disposition Nursing judgment Protocols used: Information Only Call - No [id number] [facility] [id number] Radiology Diagnostic study note [facility] Imaging Services [address] [place] [address] Lumbar Spine 2 or 3 Views MR#: [id number] Acct: [id number] Name: POLINA GIRON Rep #: [id number] : 1990 F 34 From: Arnol Willson MD PCP: Dr. Nataliya Gomez MD Status: REG CL I Study:Lumbar Spine 2 or 3 Views Date of Exam: 08/19/24 Exam# [id number] Ordering Dr: Diana Gomez MD PROCEDURE: LUMBAR SPINE 2 OR 3 VIEWS 08/19/2024 REASON FOR EXAM: BACK PAIN WITH LUMP TECHNIQUE: 3 view of the lumbar spine COMPARISON: None FINDINGS: Mild levoscoliosis centered at L4. No acute findings. There is degenerative disc disease most notable at L3-L4 and L4-L5. If concern for nerve root impingement, consider MRI. RAD/Lumbar Spine 2 or 3 Views IMPRESSION: Degenerative disc disease of the lower lumbar spine with mild scoliosis. If persistent concern, consider MRI Reading Location: [facility] CC: Dr. Nataliya Gomez MD ~ Sheriffs: Signed [facility]03-13-2025 History of Present illness Narrative* ANTWAN Marsh CNP - 08/15/2024 2:00 PM EDT DEPARTMENT OF NEUROLOGY BOTOX PROCEDURE NOTE FOR HEADACHE Date: 08/15/2024 Patient: Polina Giron : 1990 Diagnosis: Intractable chronic migraine without aura and without status migrainosus [G43.719] Procedure: Botulinum toxin injections for migraine Prior to procedure risks, benefits, alternatives, and potential side effects were reviewed with patient. Specifically reviewed possible risk of muscle weakness of face and neck, including but not limited to ptosis. All questions were answered, patient expressed understanding, verbal consent was given for procedure. Botox was injected with the parameters below: With the patient in sitting position, she received Botox injections in the neck and skull muscles. Patient receive the following doses: 1. R Frontalis 10 units 2. L Frontalis 10 units 3. R Design Quality Engineer 10 units 4. L Design Quality Engineer 10 units 5. R Temporalis 30 units 6. L Temporalis 30 units 7. R Occipitalis 30 units 8. L Occipitalis 30 units 9. R Trapezious 20 units 10.L Trapezious 20 units Total units injected 200 units. Units discarded 0 units. She reports >75% reduction in migraines with Botox Comments: Botox is Patient Supplied [facility] [id number] [x] Pt tolerated procedure well. Pt advised to avoid exercise or strenuous physical activity for 24hours. Post treatment expectations reviewed in detail. ANTWAN Gonsalez CNP documented in this [facility]03-13-2025 NoteDEPARTMENT OF NEUROLOGY BOTOX PROCEDURE NOTE FOR HEADACHE Date: 08/15/2024 Patient: Polina Giron : 1990 Diagnosis: Intractable chronic migraine without aura and without status migrainosus [G43.719] Procedure: Botulinum toxin injections for migraine Prior to procedure risks, benefits, alternatives, and potential side effects were reviewed with patient. Specifically reviewed possible risk of muscle weakness of face and neck, including but not limited to ptosis. All questions were answered, patient expressed understanding, verbal consent was given for procedure. Botox was injected with the parameters below: With the patient in sitting position, she received Botox injections in the neck and skull muscles. Patient receive the following doses: 1. R Frontalis 10 units 2. L Frontalis 10 units 3. R Design Quality Engineer 10 units 4. L Design Quality Engineer 10 units 5. R Temporalis 30 units 6. L Temporalis 30 units 7. R Occipitalis 30 units 8. L Occipitalis 30 units 9. R Trapezious 20 units 10.L Trapezious 20 units Total units injected 200 units. Units discarded 0 units. She reports >75% reduction in migraines with Botox Comments: Botox is Patient Supplied [facility] [id number] [x] Pt tolerated procedure well. Pt advised to avoid exercise or strenuous physical activity for 24 hours. Post treatment expectations reviewed in detail. Megan Mason APRN - [facility]02-24-2025 Telephone encounter Note* Telephone Encounter - Sushma West - 07/29/2024 1:56 PM EST The patient has upcoming Botox appt on 08/15/2024 The Botox will be supplied by us at [facility] and delivered to the MD office on 08/06/2024 BOTOX IS PATIENT SUPPLIED!!! # of Units to be Administered: 200 Medication: botox Dosing Schedule: once every 12 weeks Prior Authorization: Approved (pharmacy benefit) [facility] HospitalZlcrwi93-04-0312 Miscellaneous Notes* Telephone Encounter - Sushma West - 07/29/2024 1:56 PM EST The patient has upcoming Botox appt on 08/15/2024 The Botox will be supplied by us at [facility] and delivered to the MD office on 08/06/2024 BOTOX IS PATIENT SUPPLIED!!! # of Units to be Administered: 200 Medication: botox Dosing Schedule: once every 12 weeks Prior Authorization: Approved (pharmacy benefit) documented in this [facility]02-03-2025 Telephone encounter Note* Telephone Encounter - Lisa Ragsdale MA - 07/08/2024 8:49 AM EST [place]: 12/13/23 NOV: Refill pended for approval Depo with 0 refills. [facility] HospitalZqwyfb52-15-6169 Miscellaneous Notes* Telephone Encounter - Lisa Ragsdale MA - 07/08/2024 8:49 AM EST [place]: 12/13/23 NOV: Refill pended for approval Depo with 0 refills. documented in this [facility]01-29-2025 Telephone encounter Note* Telephone Encounter - Margret Whitt [facility] - 07/03/2024 9:13 AM EST [facility] investigating ubrelvy [facility] HospitalEdkwkp11-16-3437 Miscellaneous Notes* Telephone Encounter - Margret Whitt [facility] - 07/03/2024 9:13 AM EST [facility] * Telephone Encounter - ANTWAN Marsh CNP - 07/03/2024 9:05 AM EST Let her know that we have to get approval for Ubrelvy first--I sent a message to [facility] * Telephone Encounter - ANTWAN Marsh CNP - 07/03/2024 9:04 AM EST Is it possible to get Ubrelvy approved? 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 Polina states that she is requesting to have a script sent to [facility] #[id number], as soon as possible. Please advise. Best time of day caller can be reached: Any Patient advised that office/PCP has 24-48 business hours to return their call: No * Telephone Encounter - Alyssa Jain MA - 07/03/2024 8:18 AM EST Lm for patient to call the office back, please let her know samples can not be mailed. * Telephone Encounter - Jenni Juarez - 07/02/2024 4:01 PM EST Please see previous TE Message released to patient as written. Patient's further questions if applicable: N/A Were all questions from office addressed or relayed to the patient from encounter: Yes Patient is inquiring if the [facility] pharmacy can deliver samples of Ubrelvy to her. Please advise. documented in this [facility]01-29-2025 Telephone encounter Note* Telephone Encounter - ANTWAN Marsh CNP - 07/03/2024 9:05 AM EST Let her know that we have to get approval for Ubrelvy first--I sent a message to [facility] [id number] Telephone encounter Note* Telephone Encounter - ANTWAN Marsh CNP - 07/03/2024 9:04 AM EST Is it possible to get Ubrelvy approved? 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 Polina states that she is requesting to have a script sent to [facility] #[id number], as soon as possible. Please advise. Best time of day caller can be reached: Any Patient advised that office/PCP has 24-48 business hours to return their call: No [facility] HospitalKbfufo62-30-3926 Telephone encounter Note* Telephone Encounter - Alyssa Jain MA - 07/03/2024 8:18 AM EST Lm for patient to call the office back, please let her know samples can not be mailed. [place] [id number] Telephone encounter Note* Telephone Encounter - Valerie Haley MA - 07/03/2024 7:47 AM EST See other TE [address]29-2025 Miscellaneous Notes* Telephone Encounter - Valerie Haley MA - 07/03/2024 7:47 AM EST See other TE * Telephone Encounter - Valerie Haley MA - 07/02/2024 3:54 PM EST Lm for patient to call the office back, please relay providers message. * Telephone Encounter - ANTWAN Marsh CNP - 07/02/2024 3:11 PM EST Please contact pt and have her stop in and get samples of Ubrelvy-4 of the 100mgs * Telephone Encounter - Sudhakar Abrams RN - 07/02/2024 2:40 PM EST S: Patient spoke to CAC nurse regarding migraine B: Onset of symptoms/concerns 2 to 3 weeks A: Patient states stating that the Nurtec is seeming to make her headaches worse. She has been having worsening headaches recently in the last 2 to 3 weeks. Patient is asking for message to be sent to provider asking for advice. R: Advised patient that a message would be sent to provider. Patient verbalized understanding. Reason for Disposition MODERATE headache (e.g., interferes with normal activities) present > 24 hours and unexplained Protocols used: [id number] documented in this [facility]01-28-2025 Telephone encounter Note* Telephone Encounter - Jenni Juarez - 07/02/2024 4:01 PM EST Please see previous TE Message released to patient as written. Patient's further questions if applicable: N/A Were all questions from office addressed or relayed to the patient from encounter: Yes Patient is inquiring if the [facility] pharmacy can deliver samples of Ubrelvy to her. Please advise. [facility] HospitalIhctmu86-40-5344 Telephone encounter Note* Telephone Encounter - Valerie Haley MA - 07/02/2024 3:54 PM EST Lm for patient to call the office back, please relay providers message. [facility] HospitalWuytpo46-70-1928 Telephone encounter Note* Telephone Encounter - ANTWAN Marsh CNP - 07/02/2024 3:11 PM EST Please contact pt and have her stop in and get samples of Ubrelvy-4 of the 100mgs [facility] HospitalFkoxww03-80-1927 Telephone encounter Note* Telephone Encounter - Sudhakar Abrams RN - 07/02/2024 2:40 PM EST S: Patient spoke to [facility] nurse regarding migraine B: Onset of symptoms/concerns 2 to 3 weeks A: Patient states stating that the Nurtec is seeming to make her headaches worse. She has been having worsening headaches recently in the last 2 to 3 weeks. Patient is asking for message to be sent to provider asking for advice. R: Advised patient that a message would be sent to provider. Patient verbalized understanding. Reason for Disposition MODERATE headache (e.g., interferes with normal activities) present > 24 hours and unexplained Protocols used: [id number]-MT [facility] HospitalHjawit09-78-6372 Telephone encounter Note* Telephone Encounter - Yuriy Hall - 07/02/2024 2:28 PM EST Spoke with Mi aaron about Nurtec efficacy. She does not feel the medication has been helpful,reporting no improvement in her migraines when she takes a dose and noted that sometimes it makes them worse. She reported 4 migraine days in the past 30 days. I see she has an appointment coming up on 08/15/24, but I encouraged her to reach out to the office to discuss. Thank you! [facility] HospitalRegilq29-62-7695 Miscellaneous Notes* Telephone Encounter - Yuriy Hall - 07/02/2024 2:28 PM EST Spoke with Mi today about Nurtec efficacy. She does not feel the medication has been helpful,reporting no improvement in her migraines when she takes a dose and noted that sometimes it makes them worse. She reported 4 migraine days in the past 30 days. I see she has an appointment coming up on 08/15/24, but I encouraged her to reach out to the office to discuss. Thank you! documented in this [facility]12-19-2024 History of Present illness Narrative* Megan Mason APRN - MANAGER HRIS - 05/23/2024 2:30 PM EST DEPARTMENT OF NEUROLOGY BOTOX PROCEDURE NOTE FOR HEADACHE Date: 05/23/2024 Patient: Polina Giron : 1990 Diagnosis: Intractable chronic migraine without aura and without status migrainosus [G43.719] Procedure: Botulinum toxin injections for migraine Prior to procedure risks, benefits, alternatives, and potential side effects were reviewed with patient. Specifically reviewed possible risk of muscle weakness of face and neck, including but not limited to ptosis. All questions were answered, patient expressed understanding, verbal consent was given for procedure. Botox was injected with the parameters below: With the patient in sitting position, she received Botox injections in the neck and skull muscles. Patient receive the following doses: 1. R Frontalis 10 units 2. L Frontalis 10 units 3. R Design Quality Engineer 10 units 4. L Design Quality Engineer 10 units 5. R Temporalis 30 units 6. L Temporalis 30 units 7. R Occipitalis 30 units 8. L Occipitalis 30 units 9. R Trapezious 20 units 10.L Trapezious 20 units Total units injected 200 units. Units discarded 0 units. Patient reports only 3 headaches since last Botox injection Comments: Botox is Patient Supplied [facility] [id number] [x] Pt tolerated procedure well. Pt advised to avoid exercise or strenuous physical activity for 24hours. Post treatment expectations reviewed in detail. ANTWAN Gonsalez CNP documented in this [facility]12-19-2024 [facility] PROCEDURE NOTE FOR HEADACHE Date: 05/23/2024 Patient: Polina Giron : 1990 Diagnosis: Intractable chronic migraine without aura and without status migrainosus [G43.719] Procedure: Botulinum toxin injections for migraine Prior to procedure risks, benefits, alternatives, and potential side effects were reviewed with patient. Specifically reviewed possible risk of muscle weakness of face and neck, including but not limited to ptosis. All questions were answered, patient expressed understanding, verbal consent was given for procedure. Botox was injected with the parameters below: With the patient in sitting position, she received Botox injections in the neck and skull muscles. Patient receive the following doses: 1. R Frontalis 10 units 2. L Frontalis 10 units 3. R Design Quality Engineer 10 units 4. L Design Quality Engineer 10 units 5. R Temporalis 30 units 6. L Temporalis 30 units 7. R Occipitalis 30 units 8. L Occipitalis 30 units 9. R Trapezious 20 units 10.L Trapezious 20 units Total units injected 200 units. Units discarded 0 units. Patient reports only 3 headaches since last Botox injection Comments: Botox is Patient Supplied [place] [id number] [x] Pt tolerated procedure well. Pt advised to avoid exercise or strenuous physical activity for 24 hours. Post treatment expectations reviewed in detail. [facility] Gonsalez CNPAspirus [facility]11-01-2024 Telephone encounter Note* Telephone Encounter - Lisa Ragsdale MA - 04/05/2024 2:57 PM EDT [place]: 12/13/23 NOV: Refill pended for approval Depo-Provera with 0 refills. [facility] HospitalSqukvk16-33-1677 Miscellaneous Notes* Telephone Encounter - Lisa Ragsdale MA - 04/05/2024 2:57 PM EDT [place]: 12/13/23 NOV: Refill pended for approval Depo-Provera with 0 refills. documented in this encounterSNorwalk Memorial HospitalKrobtv90-75-5656 History of Present illness Narrative* ANTWAN Marsh CNP - 02/28/2024 2:30 PM EDT DEPARTMENT OF NEUROLOGY BOTOX PROCEDURE NOTE FOR HEADACHE Date: 02/27/2023 Patient: Polina Giron : 1990 Diagnosis: Intractable chronic migraine without aura and without status migrainosus [G43.719] Procedure: Botulinum toxin injections for migraine Prior to procedure risks, benefits, alternatives, and potential side effects were reviewed with patient. Specifically reviewed possible risk of muscle weakness of face and neck, including but not limited to ptosis. All questions were answered, patient expressed understanding, verbal consent was given for procedure. Botox was injected with the parameters below: With the patient in sitting position, she received Botox injections in the neck and skull muscles. Patient receive the following doses: 1. R Frontalis 10 units 2. L Frontalis 10 units 3. R Design Quality Engineer 10 units 4. L Design Quality Engineer 10 units 5. R Temporalis 30 units 6. L Temporalis 30 units 7. R Occipitalis 30 units 8. L Occipitalis 30 units 9. R Trapezious 20 units 10.L Trapezious 20 units Total units injected 200 units. Units discarded 0 units. She reports only 3 migraine since last Botox injections Comments: Botox is Patient Supplied [facility] [id number] [x] Pt tolerated procedure well. Pt advised to avoid exercise or strenuous physical activity for 24hours. Post treatment expectations reviewed in detail. ANTWAN Gonsalez CNP documented in this [facility]09-25-2024 Miscellaneous Notes* Addendum Note - Valerie Haley MA - 02/28/2024 2:30 PM EDTAddended by: VALERIE AHLEY on: 02/28/2024 03:16 PM Modules accepted: Orders * Addendum Note - ANTWAN Marsh CNP - 02/28/2024 2:30 PM EDTAddended by: BRITNI MASON on: 02/28/2024 03:20 PM Modules accepted: Orders documented in this [facility]09-25-2024 Note* Addendum Note - Valerie Haley MA - 02/28/2024 2:30 PM EDTAddended by: VALERIE HALEY on: 02/28/2024 03:16 PM Modules accepted: Orders [facility] HospitalDhvumr39-09-7961 Note* Addendum Note - ANTWAN Marsh CNP - 02/28/2024 2:30 PM EDTAddended by: BRITNI MASON on: 02/28/2024 03:20 PM Modules accepted: Orders [facility] HospitalSynthw45-58-0265 Note* Addendum Note - Valerie Haley MA - 02/28/2024 2:30 PM EDTAddended by: VALERIE HALEY on: 02/28/2024 03:16 PM Modules accepted: Orders [address]Qbyxfu12-00-1269 Note* Addendum Note - ANTWAN Marsh CNP - 02/28/2024 2:30 PM EDTAddended by: BRITNI MASON on: 02/28/2024 03:20 PM Modules accepted: Orders [place] [id number] Note* Addendum Note - Valerie Haley MA - 02/28/2024 2:30 PM EDTAddended by: VALERIE HALEY on: 02/28/2024 03:16 PM Modules accepted: Orders [place] [id number] Note* Addendum Note - ANTWAN Marsh CNP - 02/28/2024 2:30 PM EDTAddended by: BRITNI MASON on: 02/28/2024 03:20 PM Modules accepted: Orders [facility] HospitalTxffsi82-33-3952 Note* Addendum Note - Valerie Haley MA - 02/28/2024 2:30 PM EDTAddended by: VALERIE HALEY on: 02/28/2024 03:16 PM Modules accepted: Orders [place] [id number] Note* Addendum Note - ANTWAN Marsh CNP - 02/28/2024 2:30 PM EDTAddended by: BRITNI MASON on: 02/28/2024 03:20 PM Modules accepted: Orders [place] [id number] Note* Addendum Note - Valerie Haley MA - 02/28/2024 2:30 PM EDTAddended by: VALERIE HALEY on: 02/28/2024 03:16 PM Modules accepted: Orders [facility] HospitalWkavgj34-14-9652 Note* Addendum Note - ANTWAN Marsh CNP - 02/28/2024 2:30 PM EDTAddended by: BRITNI MASON on: 02/28/2024 03:20 PM Modules accepted: [facility] [id number] Note* Addendum Note - Valerie Haley MA - 02/28/2024 2:30 PM EDTAddended by: VALERIE HALEY on: 02/28/2024 03:16 PM Modules accepted: Orders [facility] [id number] Note* Addendum Note - ANTWAN Marsh CNP - 02/28/2024 2:30 PM EDTAddended by: BRITNI MASON on: 02/28/2024 03:20 PM Modules accepted: Orders [place] [id number] Note* Addendum Note - Valerie Haley MA - 02/28/2024 2:30 PM EDTAddended by: VALERIE HALEY on: 02/28/2024 03:16 PM Modules accepted: Orders [facility] [id number] Note* Addendum Note - ANTWAN Marsh CNP - 02/28/2024 2:30 PM EDTAddended by: BRITNI MASON on: 02/28/2024 03:20 PM Modules accepted: Orders [facility] [id number] NoteDEPARTMENT OF NEUROLOGY BOTOX PROCEDURE NOTE FOR HEADACHE Date: 02/27/2023 Patient: Polina Giron : 1990 Diagnosis: Intractable chronic migraine without aura and without status migrainosus [G43.719] Procedure: Botulinum toxin injections for migraine Prior to procedure risks, benefits, alternatives, and potential side effects were reviewed with patient. Specifically reviewed possible risk of muscle weakness of face and neck, including but not limited to ptosis. All questions were answered, patient expressed understanding, verbal consent was given for procedure. Botox was injected with the parameters below: With the patient in sitting position, she received Botox injections in the neck and skull muscles. Patient receive the following doses: 1. R Frontalis 10 units 2. L Frontalis 10 units 3. R Design Quality Engineer 10 units 4. L Design Quality Engineer 10 units 5. R Temporalis 30 units 6. L Temporalis 30 units 7. R Occipitalis 30 units 8. L Occipitalis 30 units 9. R Trapezious 20 units 10.L Trapezious 20 units Total units injected 200 units. Units discarded 0 units. She reports only 3 migraine since last Botox injections Comments: Botox is Patient Supplied [facility] [phone] [x] Pt tolerated procedure well. Pt advised to avoid exercise or strenuous physical activity for 24 hours. Post treatment expectations reviewed in detail. NATWAN Gonsalez CNPAsp[facility]09-25-2024 Note Addended by: BRITNI MASON on: 02/28/2024 03:20 PM Modules accepted: [facility]09-25-2024 NoteAddended by: VALERIE HALEY on: 02/28/2024 03:16 PM Modules accepted: [facility]08-27-2024 Telephone encounter Note* Telephone Encounter - Alyssa Jain MA - 01/30/2024 9:40 AM EDT Patient has been rescheduled [place] [id number] Miscellaneous Notes* Telephone Encounter - Alyssa Jain MA - 01/30/2024 9:40 AM EDT Patient has been rescheduled * Telephone Encounter - Soniya Balderas - 01/30/2024 9:37 AM EDT Name of Caller: Polina Contact Reason for Appointment: Reschedule 01/24 botox appointment for two weeks out Office Name: [facility] Beck Rashawn documented in this encounterSNorwalk Memorial [id number] Telephone encounter Note* Telephone Encounter - Soniya Balderas - 01/30/2024 9:37 AM EDT Name of Caller: Polina Contact Reason for Appointment: Reschedule 01/24 botox appointment for two weeks out Office Name: [facility] Beck Rashawn [place] [id number] Telephone encounter Note* Telephone Encounter - Clare Maurice - 01/11/2024 1:04 PM EDT Patients prescription insurance currently doesn't require prescription rx pa sorry about that, thanks! [place] [id number] Miscellaneous Notes* Telephone Encounter - Clare Maurice - 01/11/2024 1:04 PM EDT Patients prescription insurance currently doesn't require prescription rx pa sorry about that, thanks! * Telephone Encounter - Alyssa Jain MA - 01/11/2024 9:42 AM EDT Can we have the auth dates please * Telephone Encounter - Clare Maurice - 01/11/2024 9:37 AM EDT The patient has upcoming Botox appt on 01/25/24. The Botox will be supplied by us at [facility] and delivered to the MD office on 01/23/24. BOTOX IS PATIENT SUPPLIED!!! # of Units to be Administered: 200 Medication: botox Dosing Schedule: once every 12 weeks Prior Authorization: Approved (pharmacy benefit) documented in this encounterSNorwalk Memorial [id number] Telephone encounter Note* Telephone Encounter - Alyssa Jain MA - 01/11/2024 9:42 AM EDT Can we have the auth dates please [facility] [id number] Telephone encounter Note* Telephone Encounter - Clare Maurice - 01/11/2024 9:37 AM EDT The patient has upcoming Botox appt on 01/25/24. The Botox will be supplied by us at [facility] and delivered to the MD office on 01/23/24. BOTOX IS PATIENT SUPPLIED!!! # of Units to be Administered: 200 Medication: botox Dosing Schedule: once every 12 weeks Prior Authorization: Approved (pharmacy benefit) [facility] HospitalWtmcax62-50-0661 Telephone encounter Note* Telephone Encounter - Lisa Ragsdale MA - 01/05/2024 11:00 AM EDT [place]: 12/13/23 NOV: Refill pended for approval Depo-Provera with 0 refills. [facility] [id number] Miscellaneous Notes* Telephone Encounter - Lisa Ragsdale MA - 01/05/2024 11:00 AM EDT [place]: 12/13/23 NOV: Refill pended for approval Depo-Provera with 0 refills. documented in this [facility]07-29-2024 Telephone encounter Note* Telephone Encounter - Soniya Haney - 01/01/2024 10:37 AM EDT Message released to patient as written. Patient's further questions if applicable: yes Were all questions from office addressed or relayed to the patient from encounter: Yes [facility] [id number] Miscellaneous Notes* Telephone Encounter - Soniya Haney - 01/01/2024 10:37 AM EDT Message released to patient as written. Patient's further questions if applicable: yes Were all questions from office addressed or relayed to the patient from encounter: Yes documented in this [facility]07-10-2024 History of Present illness Narrative* Valeri Kwok MD - 12/13/2023 12:15 PM EDT Polina Orivette 12/13/2022 33 y.o. Primary Care Physician: Nataliya Gomez MD Chief Complaint Patient presents with Follow-up Urinary incontinence for years Vaginal itching IBS HPI : Polina Giron is a 33 y.o. female here for annual exam Gynecologic History: No LMP recorded (lmp unknown). No periods on depo Does c/o vaginal itching OB History Para Term AB Living 1 1 1 0 0 1 SAB IAB Ectopic Multiple Live Births 0 0 0 0 1 # Outcome Date GA Lbr Joey/2nd Weight Sex Type Anes PTL Lv 1 Term 02/13/14 39w0d F Vag-Spont VADIM Past Medical History: Diagnosis Date ADHD (attention deficit hyperactivity disorder) Anxiety 2009 Back pain Bipolar 2 disorder (CMS/HCC) (HCC) Cluster headache Depression 2004 Headache 2021 Headache, tension-type 2021 Insomnia 2004 Migraine 2021 Sleep apnea 2006 Past Surgical History: Procedure Laterality Date ANTERIOR CRUCIATE LIGAMENT REPAIR APPENDECTOMY APPENDECTOMY SECTION (HISTORICAL) Family History Problem Relation Name Age of Onset ADD / ADHD Mother Polina Anxiety disorder Mother Polina Depression Mother Polina Migraines Mother Polina Social History Socioeconomic History Marital status: Single Spouse name: Not on file Number of children: Not on file Years of education: Not on file Highest education level: Not on file Occupational History Not on file Tobacco Use Smoking status: Every Day Current packs/day: 1.00 Average packs/day: 1 pack/day for 15.0 years (15.0 ttl pk-yrs) Types: Cigarettes Smokeless tobacco: Never Substance and Sexual Activity Alcohol use: Never Drug use: Yes Types: Marijuana Comment: Marijuana Sexual activity: Not Currently Partners: Male control/protection: Injection Comment: depo Other Topics Concern Not on file Social History Narrative Not on file Social Determinants of Health Financial Resource Strain: Medium Risk (09/29/2021) Received from [facility] Overall Financial Resource Strain (CARDIA) Difficulty of Paying Living Expenses: Somewhat hard Food Insecurity: Food Insecurity Present (09/29/2021) Received from [facility] Hunger Vital Sign Worried About Running Out of Food in the Last Year: Sometimes true Ran Out of Food in the Last Year: Never true Transportation Needs: No Transportation Needs (09/29/2021) Received from [facility] PRAPARE - Transportation Lack of Transportation (Medical): No Lack of Transportation (Non-Medical): No Physical Activity: Insufficiently Active (09/29/2021) Received from [facility] Exercise Vital Sign Days of Exercise per Week: 2 days Minutes of Exercise per Session: 30 min Stress: Stress Concern Present (09/29/2021) [facility] [employer] [facility] - Occupational Stress Questionnaire Feeling of Stress : To some extent Social Connections: Socially Isolated (09/29/2021) Received from [facility] Social Connection and Isolation Panel [NHANES] Frequency of Communication with Friends and Family: Twice a week Frequency of Social Gatherings with Friends and Family: Never Attends Alevism Services: Never Active Member of Clubs or Organizations: No Attends Club or Organization Meetings: Never Marital Status: Never Intimate Partner Violence: Not on file Housing Stability: Low Risk (09/29/2021) [facility] Housing Stability Vital Sign Unable to Pay for Housing in the Last Year: No Number of Places Lived in the Last Year: 2 In the last 12 months, was there a time when you did not have a steady place to sleep or slept in [facility] (including now)?: No MEDICATIONS: Current Outpatient Medications Medication Sig Dispense Refill albuterol 108 (90 Base) MCG/ACT inhaler inhale 2 puffs by mouth every 4 hours if needed for wheezing or shortness of breath amphetamine-dextroamphetamine (Adderall) 20 MG tablet Biotin w/ Vitamins C & E (HAIR SKIN & NAILS GUMMIES PO) Take by mouth. cholecalciferol (Vitamin D-3) 50 MCG (2000 UT) tablet Take 50 mcg by mouth daily. hydrOXYzine pamoate (Vistaril) 50 MG capsule take 1 capsule by mouth three times a day if needed for anxiety or sleep hyoscyamine (Anaspaz,Levsin) 0.125 MG tablet lamoTRIgine (LaMICtal) 200 MG tablet lamoTRIgine (LaMICtal) 25 MG tablet Take 100 mg by mouth in the morning. medroxyPROGESTERone (Depo-Provera) 150 MG/ML suspension prefilled syringe injection syringe Inject 1 mL (150 mg) into the shoulder, thigh, or buttocks every 90 days 1 mL 0 Multiple Vitamins-Minerals (ONE-A-DAY WOMENS PO) Take by mouth. OLANZapine-Samidorphan 5-10 MG tablet Take by mouth. omeprazole (PriLOSEC) [address] capsule Take 40 mg by mouth in the morning. onabotulinumtoxinA (Botox) 200 units injection Inject 200 units as directed every 12 weeks for migraine prevention 1 each 2 ondansetron (Zofran) 4 MG tablet Take 4 mg by mouth. Rimegepant Sulfate (Nurtec) 75 MG tablet dispersible Take one tablet by mouth as needed for migraine, max once every 48 hours (8 tablets to last 30 days) 8 tablet 3 Xifaxan 550 MG tablet zolpidem (Ambien) 10 MG tablet Take 10 mg by mouth Nightly. No current facility-administered medications for this visit. ALLERGIES: Allergies as of 12/13/2023 - Reviewed 12/13/2023 Allergen Reaction Noted Codeine Nausea And Vomiting 06/01/2007 Hydrocodone-acetaminophen Nausea And Vomiting 06/01/2007 Ibuprofen 10/18/2018 REVIEW OF SYSTEMS: CONSTIUTIONAL: No fever, chills or malaise; No weight change or fatigue CV: No Chest Pain with Exertion, Palpitations, Syncope, Edema, Arrhythmia RESPIRATORY: No SOB, Pneumoniae,Cough, BREAST: No breast abnormalities or lumps GI: No Indigestion, Heartburn, Nausea, vomiting, Diarrhea, Constipation,Bloating or Bowel Changes; No Bloody Stools or melena : No Dysuria, Hematuria or Nocturia. POS Urinary Incontinence, no Vaginal Discharge,vaginal bleeding, or dysparuenia. NEURO: No CVA, Migraines, Epilepsy, Seizure Hx, or Limb Weakness DERM: No Rash, Itching, Hives, Mole Changes or Cancer PSYCH: No Depression, Homicidal thoughts,suicidal thoughts, or anxiety MUSCULOSKELETAL: No Arthralgia, or Arthritis HEME and LYMPH :No Lymphoma, Von Willebrand's, Hemophillia or Bleeding History PHYSICAL EXAM: Vitals: 12/13/23 1213 BP: 124/76 Weight: 113 kg (249 lb) Height: 1.676 m (5' 6) Body mass index is 40.19 kg/m . CHEMICAL ANALYTICAL SAMPLER EXAM: EXTERNAL GENITALIA: normal female structures VAGINA: normal ruggae, no lesions CERVIX: no lesions, normal appearance. ANUS/PERINEUM: no hemorrhoids, masses or warts noted. GENERAL EXAM BREAST: b/l symmetric without masses or tenderness CONSTITUTIONAL: Well developed, well nourished, well groomed. no acute distress NECK: no thyromegaly, supple. CARDIOVASCULAR: normal rate and rhythm, no edema LUNGS: Normal effort, normal lung sounds ABDOMEN:soft, non-tender, non-distended, no hepatospleenomegaly SKIN: intact, dry NEUROLOGICAL: no gross motor or sensory deficits noted. . MUSCULOSKELETAL: normal gait, no cyanosis. PSYCHIATRIC Normal mood and affect, A&O x3. ASSESSMENT/PLAN: Polina was seen today for follow-up. Diagnoses and all orders for this visit: Well woman exam with routine gynecological exam (Primary) - Pap Smear Dysuria - Urine culture - POCT urinalysis dipstick manually resulted Cervical cancer screening - Pap Smear Vaginal itching - Cancel: Sureswab(R) Advanced Vaginitis Plus, TMA ([facility]) Stress incontinence of urine - [facility] [facility]; Future Normal exam Will try PT for bladder If does not work send to urp/commission for the blind director Cult done Follow up if symptoms worsen or fail to improve. * Tanesha Braxton MA - 12/13/2023 12:15 PM EDT Book Coverer was offered to the patient for exam. Patient accepted, chief medical technologist in room during exam and consult. documented in this [facility]06-17-2024 Telephone encounter Note* Telephone Encounter - Lisa Ragsdale MA - 11/20/2023 12:02 PM EDT [place]: NOV: 11/22/2023 Refill pended for approval Depo-Provera with 0 refills. [facility] [id number] Miscellaneous Notes* Telephone Encounter - Lisa Ragsdale MA - 11/20/2023 12:02 PM EDT [place]: NOV: 11/22/2023 Refill pended for approval Depo-Provera with 0 refills. documented in this encounterSNorwalk Memorial [id number] History of Present illness Narrative* ANTWAN Marsh CNP - 10/31/2023 1:00 PM EDT DEPARTMENT OF NEUROLOGY BOTOX PROCEDURE NOTE FOR HEADACHE Date: 10/31/2023 Patient: Polina Giron : 1990 Diagnosis: Intractable chronic migraine without aura and without status migrainosus [G43.719] Procedure: Botulinum toxin injections for migraine Prior to procedure risks, benefits, alternatives, and potential side effects were reviewed with patient. Specifically reviewed possible risk of muscle weakness of face and neck, including but not limited to ptosis. All questions were answered, patient expressed understanding, verbal consent was given for procedure. Botox was injected with the parameters below: With the patient in sitting position, she received Botox injections in the neck and skull muscles. Patient receive the following doses: 1. R Frontalis 10 units 2. L Frontalis 10 units 3. R Design Quality Engineer 10 units 4. L Design Quality Engineer 10 units 5. R Temporalis 30 units 6. L Temporalis 30 units 7. R Occipitalis 30 units 8. L Occipitalis 30 units 9. R Trapezious 20 units 10.L Trapezious 20 units Total units injected 200 units. Units discarded 0 units. Comments: Botox is Patient Supplied [facility] [phone] [x] Pt tolerated procedure well. Pt advised to avoid exercise or strenuous physical activity for 24hours. Post treatment expectations reviewed in detail. ANTWAN Gonsalez CNP documented in this encounterSNorwalk Memorial [id number] Telephone encounter Note* Telephone Encounter - Princess Rios RN - 10/17/2023 8:39 AM EDT S: Patient spoke with [facility] nurse regarding urinary incontinence issues. B: Onset of symptoms/concern since 2013 after she had her baby. A: Pt states she has been having issues with urinary incontinence, frequency at times and some pelvic pressure since 2013. Pt has seen PCP for eval and was told to follow up with [employer] Oven Attendant for advice. Denies fever, blood in urine, foul odor to urine, pain with urination. Pt is also requesting pap at her next appt. R: Appt scheduled for eval. Pt requesting appt for November. Ins verified. Pt to bring photo ID; Ins card to appt. Pt to call back if any further ques or concerns. Reason for Disposition Can't control passage of urine (i.e., urinary incontinence, wetting self) and present > 2 weeks Answer Assessment - Initial Assessment Questions 1. SYMPTOM: What's the main symptom you're concerned about? (e.g., frequency, incontinence) Incontinence; frequency 2. ONSET: When did the incontinence start? 02-13-14 3. PAIN: Is there any pain? If Yes, ask: How bad is it? (Scale: 1-10; mild, moderate, severe) Burning with urination at times 4. CAUSE: What do you think is causing the symptoms? Unsure 5. OTHER SYMPTOMS: Do you have any other symptoms? (e.g., blood in urine, fever, flank pain, painwith urination) Lower back pain at times 6. : Is there any chance you are ? When was your last menstrual period? No - on Depo Protocols used: Urinary [id number] [facility] [id number] Miscellaneous Notes* Telephone Encounter - Princess Rios RN - 10/17/2023 8:39 AM EDT S: Patient spoke with [facility] nurse regarding urinary incontinence issues. B: Onset of symptoms/concern since 2013 after she had her baby. A: Pt states she has been having issues with urinary incontinence, frequency at times and some pelvic pressure since 2013. Pt has seen PCP for eval and was told to follow up with [employer] O[employer] Attendant for advice. Denies fever, blood in urine, foul odor to urine, pain with urination. Pt is also requesting pap at her next appt. R: Appt scheduled for eval. Pt requesting appt for November. Ins verified. Pt to bring photo ID; Ins card to appt. Pt to call back if any further ques or concerns. Reason for Disposition Can't control passage of urine (i.e., urinary incontinence, wetting self) and present > 2 weeks Answer Assessment - Initial Assessment Questions 1. SYMPTOM: What's the main symptom you're concerned about? (e.g., frequency, incontinence) Incontinence; frequency 2. ONSET: When did the incontinence start? 02-13-14 3. PAIN: Is there any pain? If Yes, ask: How bad is it? (Scale: 1-10; mild, moderate, severe) Burning with urination at times 4. CAUSE: What do you think is causing the symptoms? Unsure 5. OTHER SYMPTOMS: Do you have any other symptoms? (e.g., blood in urine, fever, flank pain, painwith urination) Lower back pain at times 6. : Is there any chance you are ? When was your last menstrual period? No - on Depo Protocols used: Urinary [id number] documented in this encounterSNorwalk Memorial [id number] Telephone encounter Note* Telephone Encounter - Lisa Ragsdale MA - 09/12/2023 11:01 AM EDT Sent pt mssg via [employer] about her refill request being sent to Dr. Drea Preciado [facility] [id number] Miscellaneous Notes* Telephone Encounter - Lisa Ragsdale MA - 09/12/2023 11:01 AM EDT Sent pt mssg via [employer] about her refill request being sent to Dr. Drea Preciado * Telephone Encounter - Lisa Ragsdale MA - 09/12/2023 10:56 AM EDT [place]: 06/27/23 NOV: 09/20/23 Refill pended for approval Depo-Provera with 0 refills. * Telephone Encounter - Maci Graves - 09/11/2023 4:58 PM EDT Name of caller: Polina Giron Contact phone number: [phone] Relationship to Patient: patient Provider: Ozzy Practice: [facility] Janae Chief Complaint/Reason for Call: Pt called to reschedule her depo shot appt due to ride issues but she also wanted to make sure that she had refills to greens picker and bring with her to the appt. Checkedher chart and unsure if there are refills to be picked up. Can this be doubled checked and if not can refills be placed for pt please. Her appt is on 09/20/23 and she has from Sep 12- Sep 26 to get the shot since her last one was on 06/27/23. Pharmacy confirmed and in chart. Please advise. Best time of day caller can be reached: any Patient advised that office/PCP has 24-48 business hours to return their call: Yes documented in this encounterSNorwalk Memorial [id number] Telephone encounter Note* Telephone Encounter - Lisa Ragsdale MA - 09/12/2023 10:56 AM EDT [place]: 06/27/23 NOV: 09/20/23 Refill pended for approval Depo-Provera with 0 refills. [facility] [id number] Telephone encounter Note* Telephone Encounter - Maci Ely - 09/11/2023 4:58 PM EDT Name of caller: Polina Giron Contact phone number: [phone] Relationship to Patient: patient Provider: Ozzy Practice: [facility] Chief Complaint/Reason for Call: Pt called to reschedule her depo shot appt due to ride issues but she also wanted to make sure that she had refills to greens picker and bring with her to the appt. Checkedher chart and unsure if there are refills to be picked up. Can this be doubled checked and if not can refills be placed for pt please. Her appt is on 09/20/23 and she has from Sep 12- Sep 26 to get the shot since her last one was on 06/27/23. Pharmacy confirmed and in chart. Please advise. Best time of day caller can be reached: any Patient advised that office/PCP has 24-48 business hours to return their call: Yes [facility] [id number] Telephone encounter Note* Telephone Encounter - Alyssa Jain MA - 08/25/2023 10:49 AM EDT Noted [facility] [id number] Miscellaneous Notes* Telephone Encounter - Alyssa Jain MA - 08/25/2023 10:49 AM EDT Noted * Telephone Encounter - Sushma West - 08/25/2023 10:45 AM EDT The patient has upcoming Botox appt on 09/13. The Botox will be supplied by us at [facility] and deliveredto the MD office on 09/04. BOTOX IS PATIENT SUPPLIED!!! # of Units to be Administered: 200 Medication: Dosing Schedule: once every 12 weeks Prior Authorization: Approved (pharmacy benefit) PA reference #: [id number] Approval dates: 02/10/2023 - 11/08/2023 Number of Units Approved: 200 units per visit documented in this encounterSNorwalk Memorial HospitalXdnyhc71-72-4900 Telephone encounter Note* Telephone Encounter - Sushma West - 08/25/2023 10:45 AM EDT The patient has upcoming Botox appt on 09/13. The Botox will be supplied by us at [facility] and deliveredto the MD office on 09/04. BOTOX IS PATIENT SUPPLIED!!! # of Units to be Administered: 200 Medication: Dosing Schedule: once every 12 weeks Prior Authorization: Approved (pharmacy benefit) PA reference #: [id number] Approval dates: 02/10/2023 - 11/08/2023 Number of Units Approved: 200 units per visit [facility] [id number] History of Present illness Narrative* Megan Mason APRN - ROBERT - 08/17/2023 2:30 PM EDT Patient was identified and seen today via Telehealth by agreement and consent. I used the followingTelehealth technology: Audio and video capabilities. Patient location: Patient Location: Home. This patient encounter is appropriate and reasonable under the circumstances: transportation issuesVisit type: Established Patient Reason for Visit: Follow-up and botox (/) Assessment and Plan 1. Intractable chronic migraine without aura and without status migrainosus Subjective HPI: For sleep failed-Trazodone, Depakote Currently on Lamictal for depression Failed TPX, Imitrex, Excedrin, Maxalt Given Ajovy and Aimovig approved. Aimovig caused worsening of migraines MRI brain- 1. Motion degraded examination. 2. Allowing for limitations, no acute/recent infarct, significant parenchymal signal abnormality, or abnormal intracranial enhancement. First round of Botox 06/21/23 She reports 5 headaches Less severe since Botox No adverse reactions Nurtec helps minimally She did try the Ubrelvy but felt Nurtec was more effective REVIEW OF SYSTEMS: Review of Systems Constitutional: Negative. HENT: Negative. Eyes: Negative. Respiratory: Negative. Cardiovascular: Negative. Gastrointestinal: Negative. Endocrine: Negative. Genitourinary: Negative. Musculoskeletal: Negative. Skin: Negative. Allergic/Immunologic: Negative. Neurological: Positive for headaches. Hematological: Negative. Psychiatric/Behavioral: Negative. Allergies Allergen Reactions Codeine Nausea And Vomiting Other reaction(s): GI Upset Hydrocodone-Acetaminophen Nausea And Vomiting Other reaction(s): GI Upset Ibuprofen Other reaction(s): GI Upset Outpatient Medications Prior to Visit Medication Sig Dispense Refill albuterol 108 (90 Base) MCG/ACT inhaler inhale 2 puffs by mouth every 4 hours if needed for wheezing or shortness of breath amphetamine-dextroamphetamine (Adderall) 20 MG tablet Biotin w/ Vitamins C & E (HAIR SKIN & NAILS GUMMIES PO) Take by mouth. cholecalciferol (Vitamin D-3) 50 MCG (2000 UT) tablet Take 50 mcg by mouth daily. hydrOXYzine pamoate (Vistaril) 50 MG capsule take 1 capsule by mouth three times a day if needed for anxiety or sleep hyoscyamine (Anaspaz,Levsin) 0.125 MG tablet lamoTRIgine (LaMICtal) 200 MG tablet lamoTRIgine (LaMICtal) 25 MG tablet Take 100 mg by mouth in the morning. medroxyPROGESTERone (Depo-Provera) 150 MG/ML injection Inject 150 mg into the shoulder, thigh, or buttocks every 90 minutes as needed. Multiple Vitamins-Minerals (ONE-A-DAY WOMENS PO) Take by mouth. OLANZapine-Samidorphan 5-10 MG tablet Take by mouth. omeprazole (PriLOSEC) [address] capsule Take 40 mg by mouth in the morning. onabotulinumtoxinA (Botox) 200 units injection Inject 200 units as directed every 12 weeks for migraine prevention 1 each 2 ondansetron (Zofran) 4 MG tablet Take 4 mg by mouth. Rimegepant Sulfate (Nurtec) 75 MG tablet dispersible Take one tablet by mouth as needed for migraine, max once every 48 hours (8 tablets to last 30 days) 8 tablet 3 Xifaxan 550 MG tablet zolpidem (Ambien) 10 MG tablet Take 10 mg by mouth Nightly. rizatriptan (Maxalt) 10 MG tablet take 1 tablet by mouth AT ONSET OF MIGRAINE. MAY REPEAT IN 2 HOURS. MAX 3 TABLETS IN 24 HOURS 9 tablet 0 No facility-administered medications prior to visit. Past Medical History: Diagnosis Date ADHD (attention deficit hyperactivity disorder) Anxiety 2008 Back pain Bipolar 2 disorder (CMS/HCC) (HCC) Cluster headache Depression 2004 Headache 2021 Headache, tension-type 2021 Insomnia 2004 Migraine 2021 Social History Tobacco Use Smoking status: Every Day Packs/day: 1.00 Years: 15.00 Additional pack years: 0.00 Total pack years: 15.00 Types: Cigarettes Smokeless tobacco: Never Substance Use Topics Alcohol use: Never Past Surgical History: Procedure Laterality Date ANTERIOR CRUCIATE LIGAMENT REPAIR APPENDECTOMY APPENDECTOMY SECTION (HISTORICAL) Family History Problem Relation Name Age of Onset ADD / ADHD Mother Polina Anxiety disorder Mother Polina Depression Mother Polina Migraines Mother Polina Objective Vitals: There were no vitals taken for this visit. Neurologic: Mentation: Alert and oriented x 3 to [address], [address] and time. Speech and Language: Speech and language normal Concentration and Attention: Concentration normal Memory: Memory normal Fund of Knowledge: Fund of knowledge normal Data Reviewed and Summarized DIAGNOSTIC TESTING CBC: No results found for: WBC, RBC, HGB, HCT, MCV, MCH, MCHC, RDW, PLT, MPV CMP: No results found for: NA, K, CL, CO2, BUN, CREATININE, AGRATIO, LABGLOM, GLUCOSE, GLU, PROT, CALCIUM, BILITOT, ALKPHOS, AST, ALT BMP: No results found for: NA, K, CL, CO2, BUN, CREATININE, CALCIUM, LABGLOM, GLUCOSE, GLU PT/INR: No results found for: PROTIME, INR PTT: No results found for: APTT, PTT[APTT} FLP: No results found for: CHLPL, TRIG, HDL, LDLCALC, LDLDIRECT TSH: No results found for: TSH VITAMIN B12: No results found for: [id number] No results found for: PHENYTOIN, PHENOBARB, VALPROATE, CBMZ No components found for: TOPIRA @RESULTINGLABINFO@ No results found for: LEVETIRACETA, FERRITIN, CRP, FRIEDA, ANCA No results found for: ADELE, IMMUNOGLOBUL, OLIGOBANDS No results found for: [id number], HEPCAB No results found for: CRP, ANATITER, ANCA FERRITIN: No results found for: FERRITIN ---- MR brain w and wo contrast Narrative: Patient Name: POLINA GIRON : 1990 [facility]#: [id number] Exam Date/Time: 05/23/2023 15:13 Procedure: MR BRAIN W AND WO CONTRAST Ordering Provider: MASON MELINDA Reason For Exam: Headache, chronic, new features or increased frequency MRI BRAIN WITHOUT AND WITH CONTRAST: CLINICAL INDICATION: Headache, chronic, new features or increased frequency. Intractable chronic migraine without aura and without status migrainous. Headache most pronounced within the left retro-orbital and left temporal region TECHNIQUE: Multiplanar, multi-sequential MRI of the brain was performed before and following intravenous administration of gadolinium contrast. COMPARISON: None. FINDINGS: Limitations: Patient motion artifact on multiple sequences. Ventricular system and Extra-axial spaces: Normal in size and morphology for the patient's age. No extra-axial fluid collection. Cerebral and cerebellar parenchyma: No restricted diffusion. No significant parenchymal signal abnormality. No abnormal parenchymal or meningeal enhancement. Sella turcica and pituitary: Within normal limits. Vascular system: Flow voids of the central major vessels appear maintained. Paranasal sinuses: Appear fairly well aerated. Mastoid air cells: Appear fairly well aerated. Orbits: Within normal limits. Calvarium and Skull base: Within normal limits. Impression: 1. Motion degraded examination. 2. Allowing for limitations, no acute/recent infarct, significant parenchymal signal abnormality, or abnormal intracranial enhancement. Report Dictated on Electronically Signed By: Foreign Gomez MD Electronically Signed Date/Time: 05/28/2023 4:10 PM EST @LASTAPPOINTMENTTHISPROV@ IMPRESSION and PLAN: Problem List Items Addressed This Visit None Visit Diagnoses Intractable chronic migraine without aura and without status migrainosus - Primary She reports improvement in migraines with first round of Botox. No adverse reactions Will proceed with second round. Nurtec as needed No problem-specific Assessment & Plan notes found for this encounter. Megan Mason APRN - ROBERT I spent 20 minutes caring for this patient today, reviewing labs, records, seeing the patient, documenting in the record and arranging for studies. Electronically signed by @MEMDNR@ on @TDNR@ at @NOWNR@ . The patient has been advised of the potential risks and limitations of this mode of treatment (including but not limited to the absence of in-person examination) and has agreed to be treated in a remote fashion in spite of them. Any and all of the patient's/patient's family's questions on this issue have been answered and I have made no promises or guarantees to the patient. The patient has also been advised to contact this office for worsening conditions or problems, and seek emergency medical treatment and/or call 911 if the patient deems either necessary. The patient stated that they are currently in the [facility]. If the patient is a minor, permission has been obtained by the parent or guardian for the patient to receive medical care at this visit. documented in this [facility]03-14-2024 Instructions* Patient Instructions* ANTWAN Marsh CNP - 08/17/2023 2:30 PM EDT She reports improvement in migraines with first round of Botox. No adverse reactions Will proceed with second round. Nurtec as needed documented in this [facility]01-25-2024 Telephone encounter Note* Telephone Encounter - Markos Gomes - 06/29/2023 11:13 AM EST Message released to patient as written. Patient's further questions if applicable: Polina expresses understanding of this message. Pleasebe advised. Were all questions from office addressed or relayed to the patient from encounter: Yes [id number] Miscellaneous Notes* Telephone Encounter - Markos Gomes - 06/29/2023 11:13 AM EST Message released to patient as written. Patient's further questions if applicable: Polina expresses understanding of this message. Pleasebe advised. Were all questions from office addressed or relayed to the patient from encounter: Yes * Telephone Encounter - Alyssa Jain MA - 06/29/2023 10:57 AM EST Lm for patient to call the office back, please relay providers message. * Telephone Encounter - ANTWAN Marsh CNP - 06/29/2023 10:48 AM EST MRI brain-limited by motion but normal * Telephone Encounter - Maxime Mcneal - 06/29/2023 9:50 AM EST Name of caller: Polina Contact phone number: [phone] Relationship to Patient: patient Provider: Megan Mason CNP Practice: [facility] Chief Complaint/Reason for Call: Patient states that she would like to discuss the results from herMRI that was completed in May. Please advise. Best time of day caller can be reached: Any Patient advised that office/PCP has 24-48 business hours to return their call: Yes documented in this [facility]SNor[facility] [id number] Telephone encounter Note* Telephone Encounter - Alyssa Jain MA - 06/29/2023 10:57 AM EST Lm for patient to call the office back, please relay providers message. [facility] [id number] Telephone encounter Note* Telephone Encounter - ANTWAN Marsh CNP - 06/29/2023 10:48 AM EST MRI brain-limited by motion but normal [employer] [id number] Telephone encounter Note* Telephone Encounter - Maxime Mcneal - 06/29/2023 9:50 AM EST Name of caller: Polina Contact phone number: [phone] Relationship to Patient: patient Provider: Megan Mason CNP Practice: [facility] Chief Complaint/Reason for Call: Patient states that she would like to discuss the results from herMRI that was completed in May. Please advise. Best time of day caller can be reached: Any Patient advised that office/PCP has 24-48 business hours to return their call: Yes [id number] History of Present illness Narrative* ANTWAN Marsh CNP - 06/21/2023 12:30 PM EST DEPARTMENT OF NEUROLOGY BOTOX PROCEDURE NOTE FOR HEADACHE Date: 06/21/2023 Patient: Polina Giron : 1990 Diagnosis: Intractable chronic migraine without aura and without status migrainosus [G43.719] Procedure: Botulinum toxin injections for migraine Prior to procedure risks, benefits, alternatives, and potential side effects were reviewed with patient. Specifically reviewed possible risk of muscle weakness of face and neck, including but not limited to ptosis. All questions were answered, patient expressed understanding, verbal consent was given for procedure. Botox was injected with the parameters below: With the patient in sitting position, she received Botox injections in the neck and skull muscles. Patient receive the following doses: 1. R Frontalis 10 units 2. L Frontalis 10 units 3. R Design Quality Engineer 10 units 4. L Design Quality Engineer 10 units 5. R Temporalis 30 units 6. L Temporalis 30 units 7. R Occipitalis 30 units 8. L Occipitalis 30 units 9. R Trapezious 20 units 10.L Trapezious 20 units Total units injected 200 units. Units discarded 0 units. This is her first round of Botox Comments: Botox is Patient Supplied [facility] [phone] [x] Pt tolerated procedure well. Pt advised to avoid exercise or strenuous physical activity for 24hours. Post treatment expectations reviewed in detail. ANTWAN Marsh CNP documented in this [facility]12-11-2023 Telephone encounter Note* Telephone Encounter - Margret Whitt RP - 05/15/2023 4:18 PM EST Med will be sent to office 05/23 Botox patient supplied Approval [id number] 02/10/23-11/08/23 [facility] supplies [facility] [id number] Miscellaneous Notes* Telephone Encounter - Margret Whitt [facility] - 05/15/2023 4:18 PM EST Med will be sent to office 05/23 Botox patient supplied Approval [id number] 02/10/23-11/08/23 [facility] supplies * Telephone Encounter - Alyssa Jain MA - 05/15/2023 9:41 AM EST Patient has been scheduled for 05/24/23 at 2:30 pm * Telephone Encounter - Mary Kate Wilhelm - 05/15/2023 9:26 AM EST Patient returned call - unable to get through back line - please return call to patient. * Telephone Encounter - Alyssa Jain MA - 05/15/2023 8:24 AM EST Lm for patient to call the office back, please transfer her back to the office when she calls back. * Telephone Encounter - ANTWAN Marsh CNP - 05/15/2023 8:16 AM EST Received message from [facility] that Botox is approved. Please contact pt to schedule apptand then let [facility] know date of appt please. documented in this encounterSNorwalk [facility] [id number] Telephone encounter Note* Telephone Encounter - Alyssa Jain MA - 05/15/2023 9:41 AM EST Patient has been scheduled for 05/24/23 at 2:30 pm [facility] [id number] Telephone encounter Note* Telephone Encounter - Mary Kate Wilhelm - 05/15/2023 9:26 AM EST Patient returned call - unable to get through back line - please return call to patient. [place] [id number] Telephone encounter Note* Telephone Encounter - Alyssa Jain MA - 05/15/2023 8:24 AM EST Lm for patient to call the office back, please transfer her back to the office when she calls back. [place] [id number] Telephone encounter Note* Telephone Encounter - ANTWAN Marsh CNP - 05/15/2023 8:16 AM EST Received message from [facility] that Botox is approved. Please contact pt to schedule apptand then let [facility] know date of appt please. [place] [id number] Telephone encounter Note* Telephone Encounter - Margret Whitt [facility] - 05/12/2023 4:11 PM EST Patient needs scheduled for botox appointment. Please schedule out so that [facility] has time to send tot office BOTOX IS PATIENT SUPPLIED!!! # of Units to be Administered: 200 Medication: Botox 200 Dosing Schedule: 200 units every 12 weeks Prior Authorization: [place] reference #:[id number] Approval dates: 02/10/23-11/08/23 Number of Units Approved: 200 per visit [facility] [id number] Miscellaneous Notes* Telephone Encounter - Margret Whitt [facility] - 05/12/2023 4:11 PM EST Patient needs scheduled for botox appointment. Please schedule out so that [facility] has time to send tot office BOTOX IS PATIENT SUPPLIED!!! # of Units to be Administered: 200 Medication: Botox 200 Dosing Schedule: 200 units every 12 weeks Prior Authorization: [place] reference #:[id number] Approval dates: 02/10/23-11/08/23 Number of Units Approved: 200 per visit documented in this [facility]12-07-2023 History of Present illness Narrative* Megan Mason, [employer]MENT [employer]PER[employer] - [facility] - 05/11/2023 8:30 AM EST Visit type: Established Patient Reason for Visit: Follow-up and Headache Assessment and Plan 1. Intractable chronic migraine without aura and without status migrainosus - MR brain w and wo contrast Subjective HPI: For sleep failed-Trazodone, Depakote Currently on Lamictal for depression Failed TPX, Imitrex, Excedrin Given Ajovy last OV Switched to Aimovig She reports 10-12 migraines per month lasting 2-3 hrs She states that Maxalt is not helping She states that Aimovig made her migraines worse. Last injection was in March Photophobia. No N&V. No changes in vision. No dizziness She has never had imaging done of her head REVIEW OF SYSTEMS: Review of Systems Constitutional: Negative. HENT: Negative. Eyes: Negative. Respiratory: Negative. Cardiovascular: Negative. Gastrointestinal: Negative. Endocrine: Negative. Genitourinary: Negative. Musculoskeletal: Negative. Skin: Negative. Allergic/Immunologic: Negative. Neurological: Positive for headaches. Hematological: Negative. Psychiatric/Behavioral: Negative. Allergies Allergen Reactions Codeine Nausea And Vomiting Other reaction(s): GI Upset Hydrocodone-Acetaminophen Nausea And Vomiting Other reaction(s): GI Upset Ibuprofen Other reaction(s): GI Upset Outpatient Medications Prior to Visit Medication Sig Dispense Refill albuterol 108 (90 Base) MCG/ACT inhaler inhale 2 puffs by mouth every 4 hours if needed for wheezing or shortness of breath amphetamine-dextroamphetamine (Adderall) 20 MG tablet Biotin w/ Vitamins C & E (HAIR SKIN & NAILS GUMMIES PO) Take by mouth. cholecalciferol (Vitamin D-3) 50 MCG (2000 UT) tablet Take 50 mcg by mouth daily. hydrOXYzine pamoate (Vistaril) 50 MG capsule take 1 capsule by mouth three times a day if needed for anxiety or sleep lamoTRIgine (LaMICtal) 25 MG tablet Take 100 mg by mouth in the morning. medroxyPROGESTERone (Depo-Provera) 150 MG/ML injection Inject 150 mg into the shoulder, thigh, or buttocks every 90 minutes as needed. Multiple Vitamins-Minerals (ONE-A-DAY WOMENS PO) Take by mouth. OLANZapine-Samidorphan 5-10 MG tablet Take by mouth. omeprazole (PriLOSEC) [address] capsule Take 40 mg by mouth in the morning. ondansetron (Zofran) 4 MG tablet Take 4 mg by mouth. rizatriptan (Maxalt) 10 MG tablet take 1 tablet by mouth AT ONSET OF MIGRAINE. MAY REPEAT IN 2 HOURS. MAX 3 TABLETS IN 24 HOURS 9 tablet 0 zolpidem (Ambien) 10 MG tablet Take 10 mg by mouth Nightly. erenumab (Aimovig) 140 MG/ML injection Inject 1 mL (140 mg) under the skin every 28 (twenty-eight) days. 1 mL 11 topiramate 50 MG tablet Take 1.5 tabs twice daily (Patient not taking: Reported on 05/11/2023) 90 tablet 3 No facility-administered medications prior to visit. Past Medical History: Diagnosis Date ADHD (attention deficit hyperactivity disorder) Anxiety 2008 Back pain Bipolar 2 disorder (CMS/HCC) (HCC) Depression 2004 Headache 2021 Headache, tension-type 2021 Insomnia 2004 Migraine 2021 Social History Tobacco Use Smoking status: Every Day Packs/day: 0.50 Years: 5.00 Additional pack years: 0.00 Total pack years: 2.50 Types: Cigarettes Smokeless tobacco: Never Substance Use Topics Alcohol use: Never Past Surgical History: Procedure Laterality Date ANTERIOR CRUCIATE LIGAMENT REPAIR APPENDECTOMY APPENDECTOMY SECTION (HISTORICAL) Family History Problem Relation Name Age of Onset ADD / ADHD Mother Polina Objective Vitals: BP 117/81 (BP Location: Right arm) Pulse 90 Wt 244 lb (111 kg) BMI 39.38 kg/m General Appearance: Patient is in no apparent distress. Head is normocephalic, atraumatic Cardiovascular: Regular rate and rhythm. No heart murmurs. No carotid bruit Neurologic: Mentation: Alert and oriented x 3 to person, place and time. Speech and Language: Speech and language normal Concentration and Attention: Concentration normal Memory: Memory normal Fund of Knowledge: Fund of knowledge normal Cranial Nerves: II, III, IV, V, , VII, VIII, IX, X, XI, XII examined and were intact. Motor: Strength: Strength 5 out of 5 with normal tone Alternating Movements: Normal Cogwheel Rigidity: None Tone: Tone is normal Tremor / Involuntary Movements: None Deep Tendon Reflexes: 1 out of 4 symmetrical in all four limbs. Sensory: Normal sensation upper and lower extremities Coordination: Normal coordination upper and lower extremities Gait and Station: Station is normal. Gait is normal Data Reviewed and Summarized DIAGNOSTIC TESTING CBC: No results found for: WBC, RBC, HGB, HCT, MCV, MCH, MCHC, RDW, PLT, MPV CMP: No results found for: NA, K, CL, CO2, BUN, CREATININE, AGRATIO, LABGLOM, GLUCOSE, GLU, PROT, CALCIUM, BILITOT, ALKPHOS, AST, ALT BMP: No results found for: NA, K, CL, CO2, BUN, CREATININE, CALCIUM, LABGLOM, GLUCOSE, GLU PT/INR: No results found for: PROTIME, INR PTT: No results found for: APTT, PTT[APTT} FLP: No results found for: CHLPL, TRIG, HDL, LDLCALC, LDLDIRECT TSH: No results found for: TSH VITAMIN B12: No results found for: [id number] No results found for: PHENYTOIN, PHENOBARB, VALPROATE, CBMZ No components found for: TOPIRA @RESULTINGLABINFO@ No results found for: LEVETIRACETA, FERRITIN, CRP, FRIEDA, ANCA No results found for: ADELE, IMMUNOGLOBUL, OLIGOBANDS No results found for: [id number], HEPCAB No results found for: CRP, ANATITER, ANCA FERRITIN: No results found for: FERRITIN ---- XR FOOT STANDARD BILATERAL Narrative: Patient Name: POLINA GIRON Diagnostic Radiology ACCESSION EXAM DATE/TIME PROCEDURE ORDERING PROVIDER [id number] 09/16/2021 13:27 EDT CR Foot Complete 3+ SOPHIE GERMAN Views Bilateral CPT code 43627 Reason For Exam (CR Foot Complete 3+ Views Bilateral) pain heel spur Report BILATERAL FEET CLINICAL INDICATION: pain heel spur AP, lateral, and oblique plain film views of the left and right feet were obtained. COMPARISON: None. Left foot: No fracture or dislocation. There is no abnormal soft tissue swelling or bone erosion. Joint spaces of the left foot are well-maintained. There is a 9 mm calcaneal spur and small Achilles enthesophyte. No evidence of plantar fascia calcification or plantar soft tissue mass. Right foot: No fracture or dislocation. There is no abnormal soft tissue swelling or bone erosion. Joint spaces of the left foot are well-maintained. There is a 7 mm calcaneal spur and small Achilles enthesophyte. No evidence of plantar fascia calcification or plantar soft tissue mass. Impression: Calcaneal spurring bilaterally. No acute osseous findings. Report Dictated on --- Final --- Dictating Physician: MD LAWSON THOMAS Signed Date and Time: 09/17/2021 1:21 pm Signed by: MD LAWSON THOMAS Transcribed Date and Time: 09/17/2021 1:22 @LASTAPPOINTMENTTHISPROV@ IMPRESSION and PLAN: Problem List Items Addressed This Visit None Visit Diagnoses Intractable chronic migraine without aura and without status migrainosus - Primary Relevant Orders MR brain w and wo contrast Her migraines have gotten worse and she is not responding to medications Failed Topamax, Aimovig, Imitrex and Maxalt Will get MRI brain with and without to assess for possible tumor Will attempt to get her approved for Botox injections Samples of Nurtec-may dose every 48 hours and Ubrelvy-dose at onset and repeat in 2 hours if needed No problem-specific Assessment & Plan notes found for this encounter. ANTWAN Marsh CNP I spent 30 minutes caring for this patient today, reviewing labs, records, seeing the patient, documenting in the record and arranging for studies. Electronically signed by @LARISADNR@ on @TDNR@ at @NOWNR@ documented in this [facility]12-07-2023 Instructions* Patient Instructions* ANTWAN Marsh CNP - 05/11/2023 8:30 AM EST Her migraines have gotten worse and she is not responding to medications Failed Topamax, Aimovig, Imitrex and Maxalt Will get MRI brain with and without to assess for possible tumor Will attempt to get her approved for Botox injections Samples of Nurtec-may dose every 48 hours and Ubrelvy-dose at onset and repeat in 2 hours if needed documented in this [facility]11-07-2023 Hospital Discharge instructions Patient Education 04/11/2023 12:32:25 Viral Syndrome (Adult) Viral Syndrome (Adult) A viral illness may cause a number of symptoms such as fever. Other symptoms depend on the part of the body that the virus affects. If it settles in your nose, throat, and lungs, it may cause cough, sore throat, congestion, runny nose, headache, earache and other ear symptoms, or shortness of breath. If it settles in your stomach and intestinal tract, it may cause nausea, vomiting, cramping, and diarrhea. Sometimes it causes generalized symptoms like aching all over, feeling tired, loss of energy, or loss of appetite. A viral illness usually lasts anywhere from several days to several weeks, but sometimes it lasts longer. In some cases, a more serious infection can look like a viral syndrome in the first few days of the illness. You may need another exam and additional tests to know the difference. Watch for thewarning signs listed below for when to seek medical advice. Home care Follow these guidelines for taking care of yourself at home: If symptoms are severe, rest at home for the first 2 to 3 days. Stay away from cigarette smoke - both your smoke and the smoke from others. You may use vmun-pfz-vwbqnyt acetaminophen or ibuprofen for fever, muscle aching, and headache, unless another medicine was prescribed for this. If you have chronic liver or kidney disease or ever had a stomach ulcer or gastrointestinal bleeding, talk with your healthcare provider before using these medicines. No one who is younger than 18 and ill with a fever should take aspirin. It may cause severe disease or . Your appetite may be poor, so a light diet is fine. Avoid dehydration by drinking 8 to 12, 8-ounce glasses of fluids each day. This may include water; orange juice; lemonade; apple, grape, and cranberry juice; clear fruit drinks; electrolyte replacement and sports drinks; and decaffeinated teas andcoffee. If you have been diagnosed with a kidney disease, ask your healthcare provider how much andwhat types of fluids you should drink to prevent dehydration. If you have kidney disease, drinking too much fluid can cause it build up in the your body and be dangerous to your health. Bxrf-nlw-aamiljn remedies won't shorten the length of the illness but may be helpful for symptoms such as cough, sore throat, nasal and sinus congestion, or diarrhea. Don't use decongestants if you have high blood pressure. Follow-up care Follow up with your healthcare provider if you do not improve over the next week. Call 911 Call 911 if any of the following occur: Convulsion Feeling weak, dizzy, or like you are going to faint Chest pain, or more than mild shortness of breath When to seek medical advice Call your healthcare provider right away if any of these occur: Cough with lots of colored sputum (mucus) or blood in your sputum Chest pain, shortness of breath, wheezing, or trouble breathing Severe headache; face, neck, or ear pain Severe, constant pain in the lower right side of your belly (abdominal) Continued vomiting (can t keep liquids down) Frequent diarrhea (more than 5 times a day); blood (red or black color) or mucus in diarrhea Feeling weak, dizzy, or like you are going to faint Extreme thirst Fever of 100.4 F (38 C) or higher, or as directed by your healthcare provider [id number] [employer]. [address] [place] [address], [place] [address]. All rights reserved. This information is not intended as a substitute for professional medical care. Always follow yourhealthcare professional's instructions. Follow Up Care 04/11/2023 12:00:11 With:BERTO NASH MD Address: [address] [place] [phone] When:2-4 days [facility] 11-07-2023 Emergency department Discharge summary Discharge Instructions Thank you for allowing [facility] to assist you with your healthcare needs. The following is importantdischarge information regarding your hospital visit. Diagnosis from Today's Visit Body aches Sore throat - Adult Viral syndrome Wheezing What to Do Next Instructions from Your Care Team No qualifying data available. Post Acute Orders No qualifying data available. You Need to Schedule the Following Appointments Follow Up with BERTO NASH MD When Within 2-4 days Where: [facility] [place], [place] [id number] [phone] Allergies Vicodin codeine sulfate Medications Please ask your primary doctor or pharmacist before taking any other medication not listed, including over the counter drugs, herbal medications, vitamins and or supplements as they may interact withur home medications. What How Much When Why Instructions Last Dose New benzonatate (Tessalon Perles 100 mg oral capsule) 1 cap by mouth Every 8 hours Duration: 10 Days Printed Prescription Changed albuterol (albuterol MDI (90 mcg/ inh) CFC free inhalation aerosol) 2 puff(s) by inhalation Every 6 hours as needed for as needed for wheezing Nausea Changed albuterol (albuterol MDI (90 mcg/ inh) CFC free inhalation aerosol) 2 puff(s) by inhalation Four (4) times a day Acute infection of sinus Changed albuterol (albuterol MDI (90 mcg/ inh) CFC free inhalation aerosol) 2 puff(s) by inhalation Every 4 hours Printed Prescription Changed albuterol (albuterol MDI (90 mcg/ inh) CFC free inhalation aerosol) 2 puff(s) by inhalation Every 4 hours Cough Wheeze Changed albuterol (ProAir HFA MDI (90 mcg/ inh) inhalation aerosol) 2 puff(s) by inhalation Four (4) times a day as needed for as needed for wheezing Unchanged DME (DME MISCellaneous) TENS UNIT Chronic neck pain SA CASE TENS UNIT E0730 REDUCING CHRONIC INTRACTABLE PAIN, 4 LEAD FOR MULTIPLE SITES; tens unit EO730, reducing chronic intractable pain, 4 lead for multiple pain sites. Certificate of medical necessity, the above identified equipment is deemed medically necessary for an estimated period of time -one month rental with option to purchase. Treatment instructions, tens unit: rate 80 width 80 alternating C for 2 hours, M for 1 hour. Wearing time: 8-10 hour TENS supplies as needed. Unchanged famotidine (famotidine 40 mg oral tablet) 1 tab(s) by mouth Daily at bedtime for reflux Unchanged fluticasone nasal (Flonase 50 mcg/ inh nasal spray) 1 spray(s) each nostril Two (2) times a day Acute infection of sinus Duration: 7 Days Unchanged gabapentin (Neurontin 600 mg oral tablet) 1 tab(s) by mouth Three (3) times a day Lumbosacral radiculopathy Duration: 30 Days Unchanged ibuprofen (ibuprofen 800 mg oral tablet) 1 tab(s) by mouth Every 12 hours as needed for as needed for pain DDD (degenerative disc disease), lumbar Unchanged lamoTRIgine (lamoTRIgine 200 mg oral tablet) 1 tab(s) by mouth Two (2) times a day Unchanged medroxyPROGESTERone (Depo-Provera Contraceptive 150 mg/ mL intramuscular suspension) 1 Milliliter Intramuscular Every 3 months Unchanged multivitamin (B-Plex (Vitamin B Complex) oral tablet) 1 tab(s) by mouth Every day okay to change to brand covered by insurance. Unchanged multivitamin (Multivitamin) 1 tab(s) by mouth Every day Unchanged ondansetron (ondansetron 4 mg oral tablet) 1 tab(s) by mouth Every 6 hours as needed for Nausea/Vomiting Nausea Unchanged predniSONE (predniSONE 10 mg oral tablet) 4 tab(s) by mouth Once a day Acute infection of sinus Duration: 5 Days Unchanged prochlorperazine (Compazine use prochlorperazine ) 10 Milligram by mouth Three (3) times a day Cough Wheeze Duration: 3 Days Unchanged tiZANidine (tiZANidine 4 mg oral tablet) 1 tab(s) by mouth Every 8 hours Unchanged zolpidem (zolpidem 10 mg oral tablet) 1 tab(s) by mouth Daily at bedtime Please take this list to your next doctor s visit. Bring all medications you take, including over the counter medications, herbals and other supplements with you to your doctor s visit. Patients and families are reminded to discard old lists and to update any records with all medication providers or retail pharmacies. Education Materials Viral Syndrome (Adult) A viral illness may cause a number of symptoms such as fever. Other symptoms depend on the part of the body that the virus affects. If it settles in your nose, throat, and lungs, it may cause cough, sore throat, congestion, runny nose, headache, earache and other ear symptoms, or shortness of breath. If it settles in your stomach and intestinal tract, it may cause nausea, vomiting, cramping, and diarrhea. Sometimes it causes generalized symptoms like aching all over, feeling tired, loss of energy, or loss of appetite. A viral illness usually lasts anywhere from several days to several weeks, but sometimes it lasts longer. In some cases, a more serious infection can look like a viral syndrome in the first few days of the illness. You may need another exam and additional tests to know the difference. Watch for thewarning signs listed below for when to seek medical advice. Home care Follow these guidelines for taking care of yourself at home: If symptoms are severe, rest at home for the first 2 to 3 days. Stay away from cigarette smoke - both your smoke and the smoke from others. You may use cxll-gie-ghqemxz acetaminophen or ibuprofen for fever, muscle aching, and headache, unless another medicine was prescribed for this. If you have chronic liver or kidney disease or ever had a stomach ulcer or gastrointestinal bleeding, talk with your healthcare provider before using these medicines. No one who is younger than 18 and ill with a fever should take aspirin. It may cause severe disease or . Your appetite may be poor, so a light diet is fine. Avoid dehydration by drinking 8 to 12, 8-ounce glasses of fluids each day. This may include water; orange juice; lemonade; apple, grape, and cranberry juice; clear fruit drinks; electrolyte replacement and sports drinks; and decaffeinated teas andcoffee. If you have been diagnosed with a kidney disease, ask your healthcare provider how much andwhat types of fluids you should drink to prevent dehydration. If you have kidney disease, drinking too much fluid can cause it build up in the your body and be dangerous to your health. Gmov-eam-ojndleh remedies won't shorten the length of the illness but may be helpful for symptoms such as cough, sore throat, nasal and sinus congestion, or diarrhea. Don't use decongestants if you have high blood pressure. Follow-up care Follow up with your healthcare provider if you do not improve over the next week. Call 911 Call 911 if any of the following occur: Convulsion Feeling weak, dizzy, or like you are going to faint Chest pain, or more than mild shortness of breath When to seek medical advice Call your healthcare provider right away if any of these occur: Cough with lots of colored sputum (mucus) or blood in your sputum Chest pain, shortness of breath, wheezing, or trouble breathing Severe headache; face, neck, or ear pain Severe, constant pain in the lower right side of your belly (abdominal) Continued vomiting (can t keep liquids down) Frequent diarrhea (more than 5 times a day); blood (red or black color) or mucus in diarrhea Feeling weak, dizzy, or like you are going to faint Extreme thirst Fever of 100.4 F (38 C) or higher, or as directed by your healthcare provider [id number] [employer]. [address] [place] [address], [place] [address]. All rights reserved. This information is not intended as a substitute for professional medical care. Always follow yourhealthcare professional's instructions. Additional Information VACCINATE! IT SAVES LIVES! Members of the community who have not yet received the COVID-19 vaccine and would like to receive it can visit one of [facility] vaccine clinics. There are many vaccine clinic locations within the [facility]. For locations and available times, please visit www.smallpox hospitalJust Be FriendsCisiv.coronavirus.[place].gov/. It is important to note that some COVID mobile vaccine clinics are held outdoors and may be canceled in rainy or stormy conditions. To learn more about pediatric vaccinations (ages 5-11), we invite you to visit the [facility] webpage. https://www.[email or web address].org/pages/9490-Igiqd-Rafdxmevefr-Hqyjrrvjfe-Cexox-Oud stions.htmlTo learn more about the COVID-19 vaccine, we invite you to visit the CDC website for a list of frequently asked questions. https://www.cdc.gov/coronavirus/2019-ncov/vaccines/faq.html [facility] Patient Portal Access Instructions: Stay connected with your healthcare team and access your personal medical information anytime with the [facility] Patient Portal. If you would like a full copy of your medical records please contact the [facility] Medical Records Department Monday through Monday between 8a.m. and 4:30p.m. Please follow the directions below to access the portal: 1.Access the email account you provided upon registration to the hospital.2.Look for an invitation email from [facility].3.Open the email and access the invitation link: Accept Invitation to [facility]4.Fill in the required ellis to create your account. Sign into [email or web address] with your username and password that you created in the above steps to stay up to date. You can then view a summary of results, a summary of your visits, and the ability to download your summaries to your computer or send the information securely to a physician. Remember that your healthcare information is confidential, so carefully consider who you will allow to register on the [facility] Patient Portal for access to your information. You can also access the [facility] [facility] Patient Portal on the [employer] asher. Simply click on Health Records under [employer] and then click on the [employer] logo. HOW TO SAFELY DISPOSE OF PRESCRIPTION MEDICATIONS Please use one of the following methods to safely dispose of your unused medications. 1.Use a drug disposal kit: the drug disposal pouch allows you to safely discard your old and unuseddrugs. Ask your nurse to give you one when you are discharged.2.Visit a local take-back location: Many local pharmacies and police departments have programs that collect old and unwanted prescriptiondrugs. Call your local pharmacy or go to http://[employer]Boostable/7L7Xh6q to find one close to you.3.Make use of household items: Use cat litter or old coffee grounds to dispose medications if other options arenot available. Mix your drugs with these household products, seal them in an airtight container andthrow it into the garbage. Call [facility]: [phone] to be sure your drugs can be disposed of in this way. Some medicines may require a different approach.4.Never flush your medications down the toilet. IF YOU HAVE BEEN PRESCRIBED AN OPIOIDS FOR PAIN If you have been prescribed an opioid (such as hydrocodone, oxycodone or morphine), it is critical to understand the possible side effects and risks of opioid pain medications. Even when taken as directed, opioids can have several side effects including: Tolerance, meaning you might need to take more of a medication for the same pain relief. Nausea, vomiting and/or constipation. Sleepiness, dizziness, dry mouth, confusion, depression or itching. Physical dependence, meaning you have withdrawal symptoms when a medication is stopped ? this can develop within a few days. KNOW YOUR RESPONSIBILITIES It is important to know exactly how much and how often to take the opioid pain medications you are prescribed. Never take opioids in higher amounts or more often than prescribed. Do not combine opioids with alcohol or other drugs that cause drowsiness, such as benzodiazepines, also known as benzos,including diazepam and alprazolam, muscle relaxants or sleep aids. Never sell or share prescriptionopioids. This is illegal. Store opioids in a secure place and out of reach of others (including children, family, friends and visitors). The last page(s) of this document has been signed and retained as a CHART COPY Signatures Patient Education Materials Viral Syndrome (Adult) Medication Leaflets My discharge plan and instructions have been reviewed and explained to me and IOMAR BRITTNEY M understand my current condition and have read and understand these discharge instructions. I have received a written copy of the plan/instructions. If I have questions, I am aware that I should contact my doctor. 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 The lungs are clear of focal consolidation. No effusion, pneumothorax, or acute osseous abnormality. IMPRESSION: No radiographic evidence of acute cardiopulmonary process. Interpreted by: Ad Navarro MD Preliminary Report By: Ad Navarro MD Electronically signed By Ad Navarro MD Dictated Date: 04/11/2023 2:18:03 PM Prelim Date: 04/11/2023 2:18:16 PM Sign Date: 04/11/2023 2:18:16 PM Ordering Provider: [facility]10-13-2023 Telephone encounter Note* Telephone Encounter - Perry Mckeon MD - 03/17/2023 4:53 PM EDT Please get a follow up with [id number] Miscellaneous Notes* Telephone Encounter - Perry Mckeon MD - 03/17/2023 4:53 PM EDT Please get a follow up with Britni scheduled * Telephone Encounter - Eliana Watts - 03/17/2023 11:35 AM EDT [place]: 12/15/2022 Requested Prescriptions Pending Prescriptions Disp Refills rizatriptan (Maxalt) 10 MG tablet [Pharmacy Med Name: RIZATRIPTAN 10 MG TABLET] 9 tablet 2 Sig: take 1 tablet by mouth AT ONSET OF MIGRAINE. MAY REPEAT IN 2 HOURS. MAX 3 TABLETS IN 24 HOURS documented in this encounterSNorwalk Memorial [id number] Telephone encounter Note* Telephone Encounter - Eliana Watts - 03/17/2023 11:35 AM EDT [place]: 12/15/2022 Requested Prescriptions Pending Prescriptions Disp Refills rizatriptan (Maxalt) 10 MG tablet [Pharmacy Med Name: RIZATRIPTAN 10 MG TABLET] 9 tablet 2 Sig: take 1 tablet by mouth AT ONSET OF MIGRAINE. MAY REPEAT IN 2 HOURS. MAX 3 TABLETS IN 24 HOURS [facility] [id number] Note. MICRO - Microbiology PROCEDURE: Urine Culture [*1] SOURCE: Urine, Clean Catch BODY SITE: COLLECTED DATE/TIME: 02/18/2023 12:14 EDT RECEIVED DATE/TIME: 02/18/2023 14:24 EDT START DATE/TIME: 02/18/2023 14:25 EDT FREE TEXT SOURCE: FINAL REPORTS Final Report [] Verified Date/Time/Personnel: 02/20/2023 07:21 EDT 10,000 - 50,000 cfu/ml Multiple bacterial morphotypes present. Probable Contamination. Suggest recollection if clinically indicated. PRELIMINARY REPORTS Preliminary Report [] Verified Date/Time/Personnel: 02/19/2023 15:15 EDT Culture results pending. Performing Locations *1: This test was performed at: [facility], [facility] [address] [place] [address], [phone] , [facility] ([place])02-18-2023 Hospital Discharge instructions Patient Education 02/18/2023 12:38:46 Bladder Infection, Female (Adult) Bladder Infection, Female (Adult) Urine is normally doesn't have any bacteria in it. But bacteria can get into the urinary tract fromthe skin around the rectum. Or they can travel in the blood from elsewhere in the body. Once they are in your urinary tract, they can cause infection in the urethra (urethritis), the bladder (cystitis), or the kidneys (pyelonephritis). The most common place for an infection is in the bladder. This is called a bladder infection. This is one of the most common infections in women. Most bladder infections are easily treated. They are not serious unless the infection spreads to the kidney. The phrases bladder infection, UTI, and cystitis are often used to describe the same thing. But they are not always the same. Cystitis is an inflammation of the bladder. The most common cause of cystitis is an infection. Symptoms The infection causes inflammation in the urethra and bladder. This causes many of the symptoms. Themost common symptoms of a bladder infection are: Pain or burning when urinating Having to urinate more often than usual Urgent need to urinate Only a small amount of urine comes out Blood in urine Abdominal discomfort. This is usually in the lower abdomen above the pubic bone. Cloudy urine Strong- or bad-smelling urine Unable to urinate (urinary retention) Unable to hold urine in (urinary incontinence) Fever Loss of appetite Confusion (in older adults) Causes Bladder infections are not contagious. You can't get one from someone else, from a toilet seat, or from sharing a bath. The most common cause of bladder infections is bacteria from the bowels. The bacteria get onto the skin around the opening of the urethra. From there, they can get into the urine and travel up to thebladder, causing inflammation and infection. This usually happens because of: Wiping improperly after urinating. Always wipe from front to back. Bowel incontinence Procedures such as having a catheter inserted Older age Not emptying your bladder. This can allow bacteria a chance to grow in your urine. Dehydration Constipation Sex Use of a diaphragm for control Treatment Bladder infections are diagnosed by a urine test. They are treated with antibiotics and usually clear up quickly without complications. Treatment helps prevent a more serious kidney infection. Medicines Medicines can help in the treatment of a bladder infection: Take antibiotics until they are used up, even if you feel better. It is important to finish them tomake sure the infection has cleared. You can use acetaminophen or ibuprofen for pain, fever, or discomfort, unless another medicine was prescribed. If you have chronic liver or kidney disease, talk with your healthcare provider before using these medicines. Also talk with your provider if you've ever had a stomach ulcer or gastrointestinal bleeding, or are taking blood-thinner medicines. If you are given phenazopydridine to reduce burning with urination, it will cause your urine to become a bright orange color. This can stain clothing. Care and prevention These self-care steps can help prevent future infections: Drink plenty of fluids to prevent dehydration and flush out your bladder. Do this unless you must restrict fluids for other health reasons, or your doctor told you not to. Proper cleaning after going to the bathroom is important. Wipe from front to back after using the toilet to prevent the spread of bacteria. Urinate more often. Don't try to hold urine in for a long time. Wear loose-fitting clothes and cotton underwear. Avoid tight-fitting pants. Improve your diet and prevent constipation. Eat more fresh fruit and vegetables, and fiber, and less junk and fatty foods. Avoid sex until your symptoms are gone. Avoid caffeine, alcohol, and spicy foods. These can irritate your bladder. Urinate right after intercourse to flush out your bladder. If you use control pills and have frequent bladder infections, discuss it with your doctor. Follow-up care Call your healthcare provider if all symptoms are not gone after 3 days of treatment. This is especially important if you have repeat infections. If a culture was done, you will be told if your treatment needs to be changed. If directed, you cancall to find out the results. If X-rays were done, you will be told if the results will affect your treatment. Call 911 Call 911 if any of the following occur: Trouble breathing Hard to wake up or confusion Fainting or loss of consciousness Rapid heart rate When to seek medical advice Call your healthcare provider right away if any of these occur: Fever of 100.4 F (38.0 C) or higher, or as directed by your healthcare provider Symptoms are not better by the third day of treatment Back or belly (abdominal) pain that gets worse Repeated vomiting, or unable to keep medicine down Weakness or dizziness Vaginal discharge Pain, redness, or swelling in the outer vaginal area (labia) [id number] [employer]. [address] [place] [address]. All rights reserved. This information is not intended as a substitute for professional medical care. Always follow yourhealthcare professional's instructions. Follow Up Care 02/18/2023 11:31:04 With:EDGAR RIZO Address: [address] [place] [address]- Business (1) [address] [place] [phone]- Business (1) When:2-4 days Comments:Return to ED if symptoms worsen With:NONE PHYSICIAN Address:Unknown When:2-4 days With:Call AMB New Pt. Refferral [phone] Address:Unknown When:2-4 days [facility] 09-16-2023 Evaluation + Plan note Diagnostic Tests Pending * Urine Culture 02/18/23 [facility] 09-16-2023 Emergency department Discharge summary Discharge Instructions Thank you for allowing [facility] to assist you with your healthcare needs. The following is importantdischarge information regarding your hospital visit. Diagnosis from Today's Visit Urination painful UTI - Urinary tract infection What to Do Next Instructions from Your Care Team No qualifying data available. Post Acute Orders No qualifying data available. You Need to Schedule the Following Appointments Follow Up with EDGAR RIZO When Within 2-4 days Why: Return to ED if symptoms worsen Where: [place] [address]- Business (1) [address] [place] [id number]- Business (1) Follow Up with NONE PHYSICIAN When Within 2-4 days Follow Up with Call AMB New Pt. Refferral [phone] When Within 2-4 days Allergies Vicodin codeine sulfate Medications Please ask your primary doctor or pharmacist before taking any other medication not listed, including over the counter drugs, herbal medications, vitamins and or supplements as they may interact withyour home medications. What How Much When Why Instructions Last Dose New cephalexin (cephalexin 500 mg oral capsule) 1 cap by mouth Every 12 hours Duration: 5 Days Printed Prescription Unchanged albuterol (albuterol MDI (90 mcg/ inh) CFC free inhalation aerosol) 2 puff(s) by inhalation Four (4) times a day Acute infection of sinus Unchanged albuterol (albuterol MDI (90 mcg/ inh) CFC free inhalation aerosol) 2 puff(s) by inhalation Every 6 hours as needed for as needed for wheezing Nausea Unchanged albuterol (albuterol MDI (90 mcg/ inh) CFC free inhalation aerosol) 2 puff(s) by inhalation Every 4 hours Cough Wheeze Unchanged albuterol (ProAir HFA MDI (90 mcg/ inh) inhalation aerosol) 2 puff(s) by inhalation Four (4) times a day as needed for as needed for wheezing Unchanged DME (DME MISCellaneous) TENS UNIT Chronic neck pain SA CASE TENS UNIT E0730 REDUCING CHRONIC INTRACTABLE PAIN, 4 LEAD FOR MULTIPLE SITES; tens unit EO730, reducing chronic intractable pain, 4 lead for multiple pain sites. Certificate of medical necessity, the above identified equipment is deemed medically necessary for an estimated period of time -one month rental with option to purchase. Treatment instructions, tens unit: rate 80 width 80 alternating C for 2 hours, M for 1 hour. Wearing time: 8-10 hour TENS supplies as needed. Unchanged famotidine (famotidine 40 mg oral tablet) 1 tab(s) by mouth Daily at bedtime for reflux Unchanged fluticasone nasal (Flonase 50 mcg/ inh nasal spray) 1 spray(s) each nostril Two (2) times a day Acute infection of sinus Duration: 7 Days Unchanged gabapentin (Neurontin 600 mg oral tablet) 1 tab(s) by mouth Three (3) times a day Lumbosacral radiculopathy Duration: 30 Days Unchanged ibuprofen (ibuprofen 800 mg oral tablet) 1 tab(s) by mouth Every 12 hours as needed for as needed for pain DDD (degenerative disc disease), lumbar Unchanged lamoTRIgine (lamoTRIgine 200 mg oral tablet) 1 tab(s) by mouth Two (2) times a day Unchanged medroxyPROGESTERone (Depo-Provera Contraceptive 150 mg/ mL intramuscular suspension) 1 Milliliter Intramuscular Every 3 months Unchanged multivitamin (B-Plex (Vitamin B Complex) oral tablet) 1 tab(s) by mouth Every day okay to change to brand covered by insurance. Unchanged multivitamin (Multivitamin) 1 tab(s) by mouth Every day Unchanged ondansetron (ondansetron 4 mg oral tablet) 1 tab(s) by mouth Every 6 hours as needed for Nausea/Vomiting Nausea Unchanged predniSONE (predniSONE 10 mg oral tablet) 4 tab(s) by mouth Once a day Acute infection of sinus Duration: 5 Days Unchanged prochlorperazine (Compazine use prochlorperazine ) 10 Milligram by mouth Three (3) times a day Cough Wheeze Duration: 3 Days Unchanged tiZANidine (tiZANidine 4 mg oral tablet) 1 tab(s) by mouth Every 8 hours Unchanged zolpidem (zolpidem 10 mg oral tablet) 1 tab(s) by mouth Daily at bedtime Please take this list to your next doctor s visit. Bring all medications you take, including over the counter medications, herbals and other supplements with you to your doctor s visit. Patients and families are reminded to discard old lists and to update any records with all medication providers or retail pharmacies. Education Materials Bladder Infection, Female (Adult) Urine is normally doesn't have any bacteria in it. But bacteria can get into the urinary tract fromthe skin around the rectum. Or they can travel in the blood from elsewhere in the body. Once they are in your urinary tract, they can cause infection in the urethra (urethritis), the bladder (cystitis), or the kidneys (pyelonephritis). The most common place for an infection is in the bladder. This is called a bladder infection. This is one of the most common infections in women. Most bladder infections are easily treated. They are not serious unless the infection spreads to the kidney. The phrases bladder infection, UTI, and cystitis are often used to describe the same thing. But they are not always the same. Cystitis is an inflammation of the bladder. The most common cause of cystitis is an infection. Symptoms The infection causes inflammation in the urethra and bladder. This causes many of the symptoms. Themost common symptoms of a bladder infection are: Pain or burning when urinating Having to urinate more often than usual Urgent need to urinate Only a small amount of urine comes out Blood in urine Abdominal discomfort. This is usually in the lower abdomen above the pubic bone. Cloudy urine Strong- or bad-smelling urine Unable to urinate (urinary retention) Unable to hold urine in (urinary incontinence) Fever Loss of appetite Confusion (in older adults) Causes Bladder infections are not contagious. You can't get one from someone else, from a toilet seat, or from sharing a bath. The most common cause of bladder infections is bacteria from the bowels. The bacteria get onto the skin around the opening of the urethra. From there, they can get into the urine and travel up to thebladder, causing inflammation and infection. This usually happens because of: Wiping improperly after urinating. Always wipe from front to back. Bowel incontinence Procedures such as having a catheter inserted Older age Not emptying your bladder. This can allow bacteria a chance to grow in your urine. Dehydration Constipation Sex Use of a diaphragm for control Treatment Bladder infections are diagnosed by a urine test. They are treated with antibiotics and usually clear up quickly without complications. Treatment helps prevent a more serious kidney infection. Medicines Medicines can help in the treatment of a bladder infection: Take antibiotics until they are used up, even if you feel better. It is important to finish them tomake sure the infection has cleared. You can use acetaminophen or ibuprofen for pain, fever, or discomfort, unless another medicine was prescribed. If you have chronic liver or kidney disease, talk with your healthcare provider before using these medicines. Also talk with your provider if you've ever had a stomach ulcer or gastrointestinal bleeding, or are taking blood-thinner medicines. If you are given phenazopydridine to reduce burning with urination, it will cause your urine to become a bright orange color. This can stain clothing. Care and prevention These self-care steps can help prevent future infections: Drink plenty of fluids to prevent dehydration and flush out your bladder. Do this unless you must restrict fluids for other health reasons, or your doctor told you not to. Proper cleaning after going to the bathroom is important. Wipe from front to back after using the toilet to prevent the spread of bacteria. Urinate more often. Don't try to hold urine in for a long time. Wear loose-fitting clothes and cotton underwear. Avoid tight-fitting pants. Improve your diet and prevent constipation. Eat more fresh fruit and vegetables, and fiber, and less junk and fatty foods. Avoid sex until your symptoms are gone. Avoid caffeine, alcohol, and spicy foods. These can irritate your bladder. Urinate right after intercourse to flush out your bladder. If you use control pills and have frequent bladder infections, discuss it with your doctor. Follow-up care Call your healthcare provider if all symptoms are not gone after 3 days of treatment. This is especially important if you have repeat infections. If a culture was done, you will be told if your treatment needs to be changed. If directed, you cancall to find out the results. If X-rays were done, you will be told if the results will affect your treatment. Call 911 Call 911 if any of the following occur: Trouble breathing Hard to wake up or confusion Fainting or loss of consciousness Rapid heart rate When to seek medical advice Call your healthcare provider right away if any of these occur: Fever of 100.4 F (38.0 C) or higher, or as directed by your healthcare provider Symptoms are not better by the third day of treatment Back or belly (abdominal) pain that gets worse Repeated vomiting, or unable to keep medicine down Weakness or dizziness Vaginal discharge Pain, redness, or swelling in the outer vaginal area (labia) 7628-8443 [employer]. [address] [place] [address], [place] [address]. All rights reserved. This information is not intended as a substitute for professional medical care. Always follow yourhealthcare professional's instructions. Additional Information VACCINATE! IT SAVES LIVES! Members of the community who have not yet received the COVID-19 vaccine and would like to receive it can visit one of [facility] vaccine clinics. There are many vaccine clinic locations within the [facility]. For locations and available times, please visit www.gettheshot.coronavirus.[place].gov/. It is important to note that some COVID mobile vaccine clinics are held outdoors and may be canceled in rainy or stormy conditions. To learn more about pediatric vaccinations (ages 5-11), we invite you to visit the [facility] webpage. [email or web address]/[email or web address] [email or web address] learn more about the COVID-19 vaccine, we invite you to visit the CDC website for a list of frequently asked questions. https://www.cdc.gov/coronavirus/2019-ncov/vaccines/faq.html [facility] Patient Portal Access Instructions: Stay connected with your healthcare team and access your personal medical information anytime with the [employer] Patient Portal. If you would like a full copy of your medical records please contact the [facility] Medical Records Department Monday through Monday between 8a.m. and 4:30p.m. Please follow the directions below to access the portal: 1.Access the email account you provided upon registration to the [facility].2.Look for an invitation email from [facility].3.Open the email and access the invitation link: [facility].Fill in the required ellis to create your account. Sign into [email or web address] with your username and password that you created in the above steps to stay up to date. You can then view a summary of results, a summary of your visits, and the ability to download your summaries to your computer or send the information securely to a physician. Remember that your healthcare information is confidential, so carefully consider who you will allow to register on the [employer] Patient Portal for access to your information. You can also access the [employer] Patient Portal on the [employer] asher. Simply click on Health Records under [employer] and then click on the [employer] logo. HOW TO SAFELY DISPOSE OF PRESCRIPTION MEDICATIONS Please use one of the following methods to safely dispose of your unused medications. 1.Use a drug disposal kit: the drug disposal pouch allows you to safely discard your old and unuseddrugs. Ask your nurse to give you one when you are discharged.2.Visit a local take-back location: Many local pharmacies and police departments have programs that collect old and unwanted prescriptiondrugs. Call your local pharmacy or go to http://[employer]Boostable/6L9Mj7u to find one close to you.3.Make use of household items: Use cat litter or old coffee grounds to dispose medications if other options arenot available. Mix your drugs with these household products, seal them in an airtight container andthrow it into the garbage. Call [facility]: [phone] to be sure your drugs can be disposed of in this way. Some medicines may require a different approach.4.Never flush your medications down the toilet. IF YOU HAVE BEEN PRESCRIBED AN OPIOIDS FOR PAIN If you have been prescribed an opioid (such as hydrocodone, oxycodone or morphine), it is critical to understand the possible side effects and risks of opioid pain medications. Even when taken as directed, opioids can have several side effects including: Tolerance, meaning you might need to take more of a medication for the same pain relief. Nausea, vomiting and/or constipation. Sleepiness, dizziness, dry mouth, confusion, depression or itching. Physical dependence, meaning you have withdrawal symptoms when a medication is stopped ? this can develop within a few days. KNOW YOUR RESPONSIBILITIES It is important to know exactly how much and how often to take the opioid pain medications you are prescribed. Never take opioids in higher amounts or more often than prescribed. Do not combine opioids with alcohol or other drugs that cause drowsiness, such as benzodiazepines, also known as benzos,including diazepam and alprazolam, muscle relaxants or sleep aids. Never sell or share prescriptionopioids. This is illegal. Store opioids in a secure place and out of reach of others (including children, family, friends and visitors). The last page(s) of this document has been signed and retained as a CHART COPY Signatures Patient Education Materials Bladder Infection, Female (Adult) Medication Leaflets My discharge plan and instructions have been reviewed and explained to me and I,POLINA GIRON M understand my current condition and have read and understand these discharge instructions. I have received a written copy of the plan/instructions. If I have questions, I am aware that I should contact my doctor. 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 Thank you [place] [id number] Miscellaneous Notes* Telephone Encounter - ANTWAN Marsh CNP - 12/19/2022 12:26 PM EDT I sent a script for Aimovig to [facility]. Thank you * Telephone Encounter - Sushmaclemente West - 12/19/2022 11:11 AM EDT Patients insurance denied the request for Ajovy. Her plan prefers her try Emgality and Aimovig prior to covering Ajovy. Please route prescription of choice to [facility]. Thank you! documented in this encounterSN[facility]walk [facility] [id number] Telephone encounter Note* Telephone Encounter - Sushma West - 12/19/2022 11:11 AM EDT Patients insurance denied the request for Ajovy. Her plan prefers her try Emgality and Aimovig prior to covering Ajovy. Please route prescription of choice to [facility]. Thank you! [place] [id number] Hospital Discharge instructions Patient Education 12/18/2022 13:11:02 Fungal Skin Infection (Tinea) Fungal Skin Infection (Tinea) A fungal infection occurs when too much fungus grows on or in the body. Fungus normally lives on the skin in small amounts and does not cause harm. But when too much grows on the skin, it causes an infection. This is also known as tinea. Fungal skin infections are common and not usually serious. The infection often starts as a small red area the size of a pea. The skin may turn dry and flaky. The area may itch. As the fungus grows, it spreads out in a red [place]ta del sur. Because of how it looks, fungal skin infection is often called ringworm, but it is not caused by a worm. Fungal skin infections can occur on many parts of the body. They can grow on the head, chest, arms, or legs. They can occuron the buttocks. On the feet, fungal infection is known as athlete s foot. It causes itchy, sometimes painful sores between the toes and the bottom or sides of the feet. In the groin, the rash is called jock itch. People with weak immune systems can get a fungal infection more easily. This includes people with diabetes or HIV, or who are being treated for cancer. In these cases, the fungal infection can spreadand cause severe illness. Fungal infections are also more common in people who are overweight. In most cases, treatment is done with antifungal cream or ointment. If the infection is on your scalp, you may take oral medicine. In some cases, a tiny piece of the skin (biopsy) may be taken. This is so it can be tested in a lab. Common fungal infections are treated with creams on the skin or oral medicine. Home care Follow all instructions when using antifungal cream or ointment on your skin. Your healthcare provider may advise using cornstarch powder to keep your skin dry or petroleum jelly to provide a barrier. General care: If you were prescribed an oral medicine, read the patient information. Talk with your healthcare provider about the risks and side effects. Let your skin dry completely after bathing. Carefully dry your feet and between your toes. Dress in loose cotton clothing. Don t scratch the affected area. This can delay healing and may spread the infection. It can also cause a bacterial infection. Keep your skin clean, but don t wash the skin too much. This can irritate your skin. Keep in mind that it may take a week before the fungus starts to go away. It can take 2 to 4 weeks to fully clear. To prevent it from coming back, use the medicine until the rash is all gone. Follow-up care Follow up with your healthcare provider if the rash does not get better after 10 days of treatment.Also follow up if the rash spreads to other parts of your body. When to seek medical advice Call your healthcare provider right away if any of these occur: Fever of 100.4 F (38 C) or higher Redness or swelling that gets worse Pain that gets worse Foul-smelling fluid leaking from the skin [id number] [employer]. [address] [place] [address]. All rights reserved. This information is not intended as a substitute for professional medical care. Always follow yourhealthcare professional's instructions. Follow Up Care 12/18/2022 12:47:17 With:PHYSICIANSNEHAL Address:Unknown When:2-4 days [facility] 07-16-2023 Note Discharge Instructions Thank you for allowing [facility] to assist you with your healthcare needs. The following is importantdischarge information regarding your hospital visit. Diagnosis from Today's Visit Rash What to Do Next Instructions from Your Care Team No qualifying data available. Post Acute Orders No qualifying data available. You Need to Schedule the Following Appointments Follow Up with PHYSICIAN, SNEHAL When Within 2-4 days Allergies Vicodin codeine sulfate Medications Please ask your primary doctor or pharmacist before taking any other medication not listed, including over the counter drugs, herbal medications, vitamins and or supplements as they may interact withyour home medications. What How Much When Why Instructions Last Dose New ketoconazole topical (ketoconazole 2% topical cream) 1 application Topical Two (2) times a day Duration: 14 Days Refills: 1 Printed Prescription Unchanged albuterol (albuterol MDI (90 mcg/ inh) CFC free inhalation aerosol) 2 puff(s) by inhalation Four (4) times a day Acute infection of sinus Unchanged albuterol (albuterol MDI (90 mcg/ inh) CFC free inhalation aerosol) 2 puff(s) by inhalation Every 6 hours as needed for as needed for wheezing Nausea Unchanged albuterol (albuterol MDI (90 mcg/ inh) CFC free inhalation aerosol) 2 puff(s) by inhalation Every 4 hours Cough Wheeze Unchanged albuterol (ProAir HFA MDI (90 mcg/ inh) inhalation aerosol) 2 puff(s) by inhalation Four (4) times a day as needed for as needed for wheezing Unchanged DME (DME MISCellaneous) TENS UNIT Chronic neck pain SA CASE TENS UNIT E0730 REDUCING CHRONIC INTRACTABLE PAIN, 4 LEAD FOR MULTIPLE SITES; tens unit EO730, reducing chronic intractable pain, 4 lead for multiple pain sites. Certificate of medical necessity, the above identified equipment is deemed medically necessary for an estimated period of time -one month rental with option to purchase. Treatment instructions, tens unit: rate 80 width 80 alternating C for 2 hours, M for 1 hour. Wearing time: 8-10 hour TENS supplies as needed. Unchanged famotidine (famotidine 40 mg oral tablet) 1 tab(s) by mouth Daily at bedtime for reflux Unchanged fluticasone nasal (Flonase 50 mcg/ inh nasal spray) 1 spray(s) each nostril Two (2) times a day Acute infection of sinus Duration: 7 Days Unchanged gabapentin (Neurontin 600 mg oral tablet) 1 tab(s) by mouth Three (3) times a day Lumbosacral radiculopathy Duration: 30 Days Unchanged hydrOXYzine (hydrOXYzine pamoate 25 mg oral capsule) Unchanged ibuprofen (ibuprofen 800 mg oral tablet) 1 tab(s) by mouth Every 12 hours as needed for as needed for pain DDD (degenerative disc disease), lumbar Unchanged lamoTRIgine (lamoTRIgine 200 mg oral tablet) 1 tab(s) by mouth Two (2) times a day Unchanged medroxyPROGESTERone (Depo-Provera Contraceptive 150 mg/ mL intramuscular suspension) 1 Milliliter Intramuscular Every 3 months Unchanged multivitamin (B-Plex (Vitamin B Complex) oral tablet) 1 tab(s) by mouth Every day okay to change to brand covered by insurance. Unchanged multivitamin (Multivitamin) 1 tab(s) by mouth Every day Unchanged ondansetron (ondansetron 4 mg oral tablet) 1 tab(s) by mouth Every 6 hours as needed for Nausea/Vomiting Nausea Unchanged predniSONE (predniSONE 10 mg oral tablet) 4 tab(s) by mouth Once a day Acute infection of sinus Duration: 5 Days Unchanged prochlorperazine (Compazine use prochlorperazine ) 10 Milligram by mouth Three (3) times a day Cough Wheeze Duration: 3 Days Unchanged tiZANidine (tiZANidine 4 mg oral tablet) 1 tab(s) by mouth Every 8 hours Unchanged zolpidem (zolpidem 10 mg oral tablet) 1 tab(s) by mouth Daily at bedtime Please take this list to your next doctor s visit. Bring all medications you take, including over the counter medications, herbals and other supplements with you to your doctor s visit. Patients and families are reminded to discard old lists and to update any records with all medication providers or retail pharmacies. Medication Leaflets ketoconazole topical (misha toe KOE na zole) Extina, Ketodan, Kuric, Nizoral A-D, Nizoral Topical, Xolegel What is the most important information I should know about ketoconazole topical? Follow all directions on your medicine label and package. Tell each of your healthcare providers about all your medical conditions, allergies, and all medicines you use. What is ketoconazole topical? Ketoconazole topical (for the skin) is an antifungal medicine used to treat infections such as athlete's foot, jock itch, ringworm, and seborrhea (dry, flaking skin or dandruff). Ketoconazole topical is also used to treat a fungal infection called pityriasis, which causes scalydiscolored patches on the skin of the neck, chest, arms, or legs. Ketoconazole topical may also be used for purposes not listed in this medication guide. What should I discuss with my healthcare provider before using ketoconazole topical? You should not use this medicine if you are allergic to ketoconazole. Ask a doctor or pharmacist if this medicine is safe to use if you have: asthma or a sulfite allergy; an allergic reaction to an antifungal medicine, such as clotrimazole, econazole, or miconazole. Ask a doctor before using this medicine if you are . You should not breast-feed while using ketoconazole topical. Always follow directions on the medicine label about using this medicine on a child. How should I apply ketoconazole topical? Use exactly as directed on the label, or as prescribed by your doctor. Using more of this medicine or applying it more often than prescribed will not make it work any faster, and may increase side effects. Do not take by mouth. Topical medicine is for use only on the skin. Do not use on open wounds or irritated skin. Rinse with water if this medicine gets in your eyes, nose, or mouth. Read and carefully follow any Instructions for Use provided with your medicine. Ask your doctor or pharmacist if you do not understand these instructions. Wash your hands before and after using this medicine. Clean and dry the skin before applying ketoconazole cream, foam, or gel. This medicine may be flammable. Do not use near high heat or open flame, or while smoking. Avoid heat or smoking until the medicine has completely dried on your skin. Ketoconazole shampoo is not for daily use. Allow at least 3 days to pass between uses. Use this medicine for the full prescribed length of time, even if your symptoms quickly improve. Skipping doses can increase your risk of infection that is resistant to medication. Call your doctor if your symptoms do not begin to improve after 2 to 4 weeks of treatment, or if your condition gets worse. Store ketoconazole topical at room temperature. Protect from light and do not refrigerate or freeze. What happens if I miss a dose? Use the medicine as soon as you can, but skip the missed dose if it is almost time for your next dose. Do not use two doses at one time. What happens if I overdose? An overdose of ketoconazole topical is not expected to be dangerous. Seek emergency medical attention or call the Poison Help line at if anyone has accidentally swallowed the medication. What should I avoid while using ketoconazole topical? Do not get this medicine in your eyes. If contact does occur, rinse with water. Avoid covering treated skin areas with tight-fitting, synthetic clothing (such as nylon or polyester) that doesn't allow air to circulate to your skin. If you are treating your feet, wear clean cotton socks and sandals or shoes that allow for air circulation. Keep your feet as dry as possible. You may need to avoid sunlight if you are treating pityriasis. Follow your doctor's instructions. Avoid using skin products that can cause irritation, such as harsh soaps, shampoos, hair coloring or permanent chemicals, hair removers or waxes, or skin products with alcohol, spices, astringents, or [place]. Avoid using other medications on the areas you treat with ketoconazole topical unless your doctor tells you to. What are the possible side effects of ketoconazole topical? Get emergency medical help if you have signs of an allergic reaction: hives; difficult breathing; swelling of your face, lips, tongue, or throat. Call your doctor at once if you have: burning, stinging, or severe irritation after using this medicine; redness, pain, or oozing of treated skin; or shortness of breath. Common side effects may include: thinning hair; changes in the color or texture of your hair; dry skin; or mild itching. This is not a complete list of side effects and others may occur. Call your doctor for medical advice about side effects. You may report side effects to FDA at 5-734-HKI-2548. What other drugs will affect ketoconazole topical? Medicine used on the skin is not likely to be affected by other drugs you use. But many drugs can interact with each other. Tell each of your healthcare providers about all medicines you use, including prescription and nuhv-ljt-uqgvepo medicines, vitamins, and herbal products. Where can I get more information? Your pharmacist can provide more information about ketoconazole topical. Remember, keep this and all other medicines out of the reach of children, never share your medicines with others, and use this medication only for the indication prescribed. Every effort has been made to ensure that the information provided by [employer]. [employer]') is accurate, up-to-date, and complete, but no guarantee is made to that effect. Drug information contained herein may be time sensitive. [employer] information has been compiled for use by healthcare practitioners and consumers in the [place] and therefore [employer] does not warrant that uses outside of the [place] are appropriate, unless specifically indicated otherwise. [employer] drug information does not endorse drugs, diagnose patients or recommend therapy. [employer] drug information isan informational resource designed to assist licensed healthcare practitioners in caring for their p atients and/or to serve consumers viewing this service as a supplement to, and not a substitute for, the expertise, skill, knowledge and judgment of healthcare practitioners. The absence of a warningfor a given drug or drug combination in no way should be construed to indicate that the drug or drug combination is safe, effective or appropriate for any given patient. [employer] does not assume any responsibility for any aspect of healthcare administered with the aid of information [employer] provides. The information contained herein is not intended to cover all possible uses, directions, precautions, warnings, drug interactions, allergic reactions, or adverse effects. If you have questions about the drugs you are taking, check with your doctor, nurse or pharmacist. Copyright 1156-9041 [employer] Version: 5.02. Revision Date: 08/20/2019. Education Materials Fungal Skin Infection (Tinea) A fungal infection occurs when too much fungus grows on or in the body. Fungus normally lives on the skin in small amounts and does not cause harm. But when too much grows on the skin, it causes an infection. This is also known as tinea. Fungal skin infections are common and not usually serious. The infection often starts as a small red area the size of a pea. The skin may turn dry and flaky. The area may itch. As the fungus grows, it spreads out in a red [place]. Because of how it looks, fungal skin infection is often called ringworm, but it is not caused by a worm. Fungal skin infections can occur on many parts of the body. They can grow on the head, chest, arms, or legs. They can occuron the buttocks. On the feet, fungal infection is known as athlete s foot. It causes itchy, sometimes painful sores between the toes and the bottom or sides of the feet. In the groin, the rash is called jock itch. People with weak immune systems can get a fungal infection more easily. This includes people with diabetes or HIV, or who are being treated for cancer. In these cases, the fungal infection can spreadand cause severe illness. Fungal infections are also more common in people who are overweight. In most cases, treatment is done with antifungal cream or ointment. If the infection is on your scalp, you may take oral medicine. In some cases, a tiny piece of the skin (biopsy) may be taken. This is so it can be tested in a lab. Common fungal infections are treated with creams on the skin or oral medicine. Home care Follow all instructions when using antifungal cream or ointment on your skin. Your healthcare provider may advise using cornstarch powder to keep your skin dry or petroleum jelly to provide a barrier. General care: If you were prescribed an oral medicine, read the patient information. Talk with your healthcare provider about the risks and side effects. Let your skin dry completely after bathing. Carefully dry your feet and between your toes. Dress in loose cotton clothing. Don t scratch the affected area. This can delay healing and may spread the infection. It can also cause a bacterial infection. Keep your skin clean, but don t wash the skin too much. This can irritate your skin. Keep in mind that it may take a week before the fungus starts to go away. It can take 2 to 4 weeks to fully clear. To prevent it from coming back, use the medicine until the rash is all gone. Follow-up care Follow up with your healthcare provider if the rash does not get better after 10 days of treatment.Also follow up if the rash spreads to other parts of your body. When to seek medical advice Call your healthcare provider right away if any of these occur: Fever of 100.4 F (38 C) or higher Redness or swelling that gets worse Pain that gets worse Foul-smelling fluid leaking from the skin [id number] [employer]. [address] [place] [address], [place] [address]. All rights reserved. This information is not intended as a substitute for professional medical care. Always follow yourhealthcare professional's instructions. Additional Information VACCINATE! IT SAVES LIVES! Members of the community who have not yet received the COVID-19 vaccine and would like to receive it can visit one of [facility] vaccine clinics. There are many vaccine clinic locations within the [facility]. For locations and available times, please visit www.[email or web address].[place].gov/. It is important to note that some COVID mobile vaccine clinics are held outdoors and may be canceled in rainy or stormy conditions. To learn more about pediatric vaccinations (ages 5-11), we invite you to visit the [facility] webpage. [email or web address]/[email or web address] [email or web address] learn more about the COVID-19 vaccine, we invite you to visit the CDC website for a list of frequently asked questions. https://www.cdc.gov/coronavirus/2019-ncov/vaccines/faq.html [facility] Patient Portal Access Instructions: Stay connected with your healthcare team and access your personal medical information anytime with the [facility] Patient Portal. If you would like a full copy of your medical records please contact the [facility] Medical Records Department Monday through Monday between 8a.m. and 4:30p.m. Please follow the directions below to access the portal: 1.Access the email account you provided upon registration to the [facility].2.Look for an invitation email from [facility].3.Open the email and access the invitation link: Accept Invitation to [employer]4.Fill in the required ellis to create your account. Sign into [email or web address] with your username and password that you created in the above steps to stay up to date. You can then view a summary of results, a summary of your visits, and the ability to download your summaries to your computer or send the information securely to a physician. Remember that your healthcare information is confidential, so carefully consider who you will allow to register on the [facility] Patient Portal for access to your information. You can also access the [facility] Patient Portal on the [employer]. Simply click on Health Records under [employer] and then click on the [facility] logo. HOW TO SAFELY DISPOSE OF PRESCRIPTION MEDICATIONS Please use one of the following methods to safely dispose of your unused medications. 1.Use a drug disposal kit: the drug disposal pouch allows you to safely discard your old and unuseddrugs. Ask your nurse to give you one when you are discharged.2.Visit a local take-back location: Many local pharmacies and police departments have programs that collect old and unwanted prescriptiondrugs. Call your local pharmacy or go to http://[employer]Boostable/6X9Mv5s to find one close to you.3.Make use of household items: Use cat litter or old coffee grounds to dispose medications if other options arenot available. Mix your drugs with these household products, seal them in an airtight container andthrow it into the garbage. Call [facility]: [phone] to be sure your drugs can be disposed of in this way. Some medicines may require a different approach.4.Never flush your medications down the toilet. IF YOU HAVE BEEN PRESCRIBED AN OPIOIDS FOR PAIN If you have been prescribed an opioid (such as hydrocodone, oxycodone or morphine), it is critical to understand the possible side effects and risks of opioid pain medications. Even when taken as directed, opioids can have several side effects including: Tolerance, meaning you might need to take more of a medication for the same pain relief. Nausea, vomiting and/or constipation. Sleepiness, dizziness, dry mouth, confusion, depression or itching. Physical dependence, meaning you have withdrawal symptoms when a medication is stopped ? this can develop within a few days. KNOW YOUR RESPONSIBILITIES It is important to know exactly how much and how often to take the opioid pain medications you are prescribed. Never take opioids in higher amounts or more often than prescribed. Do not combine opioids with alcohol or other drugs that cause drowsiness, such as benzodiazepines, also known as benzos,including diazepam and alprazolam, muscle relaxants or sleep aids. Never sell or share prescriptionopioids. This is illegal. Store opioids in a secure place and out of reach of others (including children, family, friends and visitors). The last page(s) of this document has been signed and retained as a CHART COPY Signatures Patient Education Materials Fungal Skin Infection (Tinea) Medication Leaflets ketoconazole topical My discharge plan and instructions have been reviewed and explained to me and I,POLINA GIRON M understand my current condition and have read and understand these discharge instructions. I have received a written copy of the plan/instructions. If I have questions, I am aware that I should contact my doctor. 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 Patient's further questions if applicable: Polina states she would like to give herself the monthly injections. Polina states she would like her script sent to: [id number] - [place], [address] Polina states she would like a call back with a status update once her scripthas been sent for awareness, because she is not due for her next injection for another month. Please contact Polina and mahad. Were all questions from office addressed or relayed to the patient from encounter: Yes [id number] Miscellaneous Notes* Telephone Encounter - Markos Gomes - 12/15/2022 5:01 PM EDT Message released to patient as written. Patient's further questions if applicable: Polina states she would like to give herself the monthly injections. Polina states she would like her script sent to: [id number] - [place], [address] Polina states she would like a call back with a status update once her scripthas been sent for awareness, because she is not due for her next injection for another month. Please contact Polina and mahad. Were all questions from office addressed or relayed to the patient from encounter: Yes * Telephone Encounter - ANTWAN Marsh CNP - 12/15/2022 3:45 PM EDT I gave Ajovy injection today. It is up to her. She can give the injections to herself monthly or make an appt to come into the office. I don't treat respiratory diseases. * Telephone Encounter - Cynthia Muro - 12/15/2022 3:16 PM EDT Name of caller: Polina Contact phone number: [phone] Relationship to Patient: patient Provider: Megan Practice: [facility] Chief Complaint/Reason for Call: pt had her ubrelvy injected today. She is asking if she should come in the office every month for this or do this at home please advise> Pt does not have a pcp and asking if her albuterol can get a refill as well. Best time of day caller can be reached: AM Patient advised that office/PCP has 24-48 business hours to return their call: Yes documented in this [facility]07-13-2023 Telephone encounter Note* Telephone Encounter - ANTWAN Marsh CNP - 12/15/2022 3:45 PM EDT I gave Ajovy injection today. It is up to her. She can give the injections to herself monthly or make an appt to come into the office. I don't treat respiratory diseases. [id number] Telephone encounter Note* Telephone Encounter - Cynthia Muro - 12/15/2022 3:16 PM EDT Name of caller: Polina Contact phone number: [phone] Relationship to Patient: patient Provider: Megan Practice: [facility] Chief Complaint/Reason for Call: pt had her ubrelvy injected today. She is asking if she should come in the office every month for this or do this at home please advise> Pt does not have a pcp and asking if her albuterol can get a refill as well. Best time of day caller can be reached: AM Patient advised that office/PCP has 24-48 business hours to return their call: Yes [id number] History of Present illness Narrative* Elizabeth Brito MA - 10/06/2022 11:15 AM EDT Patient was present for Depo Provera. Patient was given IM Injection in left glute with no blood return. Patient tolerated injection well. [facility]: [id number] LOT: [id number] EXP: 11/04/2023 documented in this [facility]05-04-2023 History of Present illness Narrative* Perry Mckeon MD - 10/06/2022 9:30 AM EDT Images from the original note were not included. [facility] [address] [facility] [address] Dept: [phone] Dept Loc: [phone] Perry Mckeon MD Thank you for your kind request for a neurological consultation on this patient. CHIEF COMPLAINT: Chief Complaint Patient presents with New Patient Headache HISTORY OF PRESENT ILLNESS: The patient is a 32 y.o. person who presents with headaches. Started 1.5-2 years ago. She had headaches when younger but no where near as much as now. Biorbital and bi frontal. Pounding throbbing. She is having every day. She is taking Excedrin nearly 4 times a day every day. Is the DAWSON longer than four hours? Yes (Migraine) Photophobia? Yes (Migraine) Phonophobia? Yes (Migraine) Nausea/Vomiting? No (Migraine) Exacerbated by Movement? Yes No vision changes. No dizziness. (Hemicrania Continua) Autonomic Features (at least 1 of below)? (1) conjunctival injection? No (2) lacrimation? No (3) nasal congestion? No (4) rhinorrhea? No (5) ptosis? No (6) eyelid edema? No (New Daily Persistent DAWSON) Clear Onset of DAWSON Syndrome? No Persistent for >3 months? No Distinct starting point? No No prior DAWSON history? Yes (Tension-Type DAWSON) Mild-Moderate, Featureless? No >10 attacks per month? 30 min-7days? Bilateral? Pressing/tightening? Is the DAWSON less than four hours? No Autonomic Features? No Cluster Headache (1 or more)? No 15 min to 180 min? No Ipsilateral conjunctival injection? No Ipsilateral Lacrimation? No Ipsilateral nasal congestion? No Ipsilateral Rhinorrhea? No Ipsilateral forehead and facial sweating? No Ipsilateral Miosis? No Ipsilateral Ptosis? No eyelid edema? No Paroxysmal Hemicrania (1 or more ipsilateral)? No (1) 2 min-30 min? No (2) conjunctival injection? No (3) lacrimation? No (4) nasal congestion? No (5) rhinorrhea? No (6) eyelid edema? No Short-lasting Unilateral Neuralgiform DAWSON with Conjunctival Injection and Tearing? (1) 1 sec-600 s? No (2) conjunctival injection? No (3) lacrimation? No (4) nasal congestion? No (5) rhinorrhea? No (6) eyelid edema? No Hypnic DAWSON? Only during sleep and causing awakening? No > 10 days per month? No > 3 months? No Age over 50? No Primary Cough DAWSON? > 2 attacks? No Precipitated by coughing or other Valsalva maneuver? No 1 sec-2 hours? No Secondary cause ruled out? No Primary Exercise DAWSON? > 2 attacks? No Precipitated by strenuous exercise? No Secondary cause ruled out? No Secondary causes of DAWSON? Systemic Symptoms (mets, GCA, infection)? Fever? Sweats/Chills? Weight Loss? Secondary Diseases? HIV? Cancer? Chronic Infection? Chronic Immunosuppression? Neurological Symtoms and Signs (mass/structural lesion, stroke, hydrocephalus) Confusion? Focal neurological signs/symptoms? Diplopia? Transient visual obscurations? Pulsatile tinnitus? Onset: (RCVS, stroke, SAH, CVST, dissection, pituitary apoplexy, intracranial hypertension) Thunderclap? Older Age (mass, GCA) New onset after age 50? Progressive after age 50? Positional (CSF leak, mass, CVST, Sinusitis) Orthostatic? Recumbent? Worsens with change in position? Prior history (mass, infection)? / (CVST, eclampsia, RCVS, pituitary lesion, stroke)? Precipitated by valsalva (mass, Chiari)?No Cough? Sneeze? Bending? Straining? She has not had any triptans. She has never had preventative meds. Past Medical History: has a past medical history of ADHD (attention deficit hyperactivity disorder), Back pain, and Bipolar 2 disorder (CMS/HCC) ([facility]). Past Surgical History: has a past surgical history that includes Appendectomy; Anterior cruciate ligament repair; Cesareansection; and Appendectomy. Medications: Current Outpatient Medications: amphetamine-dextroamphetamine (Adderall) 20 MG tablet, , Disp: , Rfl: Biotin w/ Vitamins C & E (HAIR SKIN & NAILS GUMMIES PO), Take by mouth., Disp: , Rfl: cholecalciferol (Vitamin D-3) 50 MCG (1999) tablet, Take 50 mcg by mouth daily., Disp: , Rfl: hydrOXYzine pamoate (Vistaril) 50 MG capsule, take 1 capsule by mouth three times a day if needed for anxiety or sleep, Disp: , Rfl: lamoTRIgine (LaMICtal) 200 MG tablet, Take 1 tablet by mouth 2 times daily., Disp: , Rfl: medroxyPROGESTERone (Depo-Provera) 150 MG/ML injection, Inject 150 mg into the shoulder, thigh, or buttocks every 90 minutes as needed., Disp: , Rfl: Multiple Vitamins-Minerals (ONE-A-DAY WOMENS PO), Take by mouth., Disp: , Rfl: omeprazole (PriLOSEC) [address] capsule, Take 40 mg by mouth in the morning., Disp: , Rfl: ondansetron (Zofran) 4 MG tablet, Take 4 mg by mouth., Disp: , Rfl: zolpidem (Ambien) 10 MG tablet, Take 10 mg by mouth Nightly., Disp: , Rfl: albuterol 108 (90 Base) MCG/ACT inhaler, inhale 2 puffs by mouth every 4 hours if needed for wheezing or shortness of breath, Disp: , Rfl: lamoTRIgine (LaMICtal) 25 MG tablet, Take 100 mg by mouth in the morning., Disp: , Rfl: OLANZapine-Samidorphan 5-10 MG tablet, Take by mouth., Disp: , Rfl: predniSONE (Deltasone) 20 MG tablet, Take 5 tabs po AM the first day, take 4 tabs po AM the second day, take 3 tabs po AM the third day, take 2 tabs po AM the fourth day, and take 1 tab po AM the fifth day, Disp: 15 tablet, Rfl: 0 SUMAtriptan (Imitrex) 50 MG tablet, Take 1 tablet (50 mg) by mouth Once as needed for migraine (mayrepeat x1). May repeat dose once in 2 hours if no relief. Do not exceed 2 doses in 24 hours., Disp:9 tablet, Rfl: 2 topiramate (Topamax) 25 MG tablet, Take 1 tab po qpm for 7 days, then take 1 tab po BID for 7 days,then take 1 tab po QAM and 2 tabs po QPM for 7 days, then stop these and start the 50 mg pills, Disp: 42 tablet, Rfl: 0 [START ON 10/28/2022] topiramate 50 MG tablet, Take 50 mg by mouth 2 times daily. Do not start before October 28, 2022., Disp: 60 tablet, Rfl: 2 Allergies: Codeine, Hydrocodone-acetaminophen, and Ibuprofen Social History: Social History Socioeconomic History Marital status: Single Spouse name: Not on file Number of children: Not on file Years of education: Not on file Highest education level: Not on file Occupational History Not on file Tobacco Use Smoking status: Every Day Packs/day: 0.50 Types: Cigarettes Smokeless tobacco: Never Substance and Sexual Activity Alcohol use: Never Drug use: Yes Types: Marijuana Sexual activity: Not on file Comment: depo Other Topics Concern Not on file Social History Narrative Not on file Social Determinants of Health Financial Resource Strain: Not on file Food Insecurity: Not on file Transportation Needs: Not on file Physical Activity: Not on file Stress: Not on file Social Connections: Not on file Intimate Partner Violence: Not on file Housing Stability: Not on file Family History: No family history on file. REVIEW OF SYSTEMS: Review of Systems Constitutional: Positive for fatigue. Negative for appetite change, chills, diaphoresis, fever and unexpected weight change. HENT: Negative for dental problem and mouth sores. Eyes: Negative for discharge and itching. Respiratory: Positive for shortness of breath. Negative for chest tightness. Cardiovascular: Negative for chest pain, palpitations and leg swelling. Gastrointestinal: Positive for abdominal pain, nausea and vomiting. Negative for rectal pain. Endocrine: Negative for polydipsia, polyphagia and polyuria. Genitourinary: Negative for decreased urine volume, flank pain and genital sores. Musculoskeletal: Positive for back pain and neck pain. Negative for arthralgias. Skin: Negative for color change. Allergic/Immunologic: Negative for food allergies and immunocompromised state. Neurological: Positive for headaches. Negative for dizziness, syncope, weakness and light-headedness. Hematological: Negative for adenopathy. Does not bruise/bleed easily. Psychiatric/Behavioral: Negative for agitation, behavioral problems, confusion, decreased concentration, sleep disturbance and suicidal ideas. Answers submitted by the patient for this visit: Neurological Problem Questionnaire (Submitted on 10/05/2022) Chief Complaint: Neurologic complaint altered mental status: No clumsiness: No focal sensory loss: No focal weakness: No loss of balance: No memory loss: No near-syncope: No slurred speech: No visual change: No Onset: more than 1 year ago Onset quality: gradually Progression since onset: gradually worsening auditory change: No aura: Yes bladder incontinence: No bowel incontinence: Yes vertigo: No Treatments tried: acetaminophen, aspirin, bed rest, medication, neck support, sleep, walking Improvement on treatment: no relief PHYSICAL EXAM: Vitals: BP 122/81 (BP Location: Right arm) Pulse 80 Wt 239 lb (108 kg) BMI 38.58 kg/m General Appearance: Patient is in no apparent distress. Head is normocephalic, atraumatic Cardiovascular: Regular rate and rhythm. No heart murmurs. No carotid bruit Neurologic: Mentation: Alert and oriented x 3 [address], [address] and time. Speech and Language: Speech and language normal Concentration and Attention: Concentration normal Memory: Memory normal Fund of Knowledge: Fund of knowledge normal Cranial Nerves: II, III, IV, V, , VII, VIII, IX, X, XI, XII tested and were intact including fundoscopic exam (optic discs) and visual field to confrontation. Motor: Strength:Strength 5 out of 5 with normal tone Alternating Movements: Normal Cogwheel Rigidity: None Tone: Tone is normal Tremor / Involuntary Movements: None Deep Tendon Reflexes: 1 out of 4 symmetrical in all four limbs. Sensory: Normal sensation upper and lower extremities Coordination: Normal coordination upper and lower extremities Gait and Station: Station is normal. Gait is normal DATA CBC: No results found for: WBC, RBC, HGB, HCT, MCV, MCH, MCHC, RDW, PLT, MPV CMP: No results found for: NA, K, CL, CO2, BUN, CREATININE, AGRATIO, LABGLOM, GLUCOSE, GLU, PROT, CALCIUM, BILITOT, ALKPHOS, AST, ALT BMP: No results found for: NA, K, CL, CO2, BUN, CREATININE, CALCIUM, LABGLOM, GLUCOSE, GLU PT/INR: No results found for: PROTIME, INR PTT: No results found for: APTT, PTT[APTT} FLP: No results found for: CHLPL, TRIG, HDL, LDLCALC, LDLDIRECT TSH: No results found for: TSH VITAMIN B12: No results found for: [id number] FERRITIN: No results found for: FERRITIN ---- No results found for: PHENYTOIN, PHENOBARB, VALPROATE, CBMZ No components found for: TOPIRANo results found for: OXCARBAZE, OXCARB @LASTAPPOINTMENTTHISPROV@ XR FOOT STANDARD BILATERAL Narrative: [id number] Diagnostic Radiology ACCESSION EXAM DATE/TIME PROCEDURE ORDERING PROVIDER [id number] 09/16/2021 13:27 EDT CR Foot Complete 3+ SOPHIE GERMAN D Views Bilateral CPT code 80521 Reason For Exam (CR Foot Complete 3+ Views Bilateral) pain heel spur Report BILATERAL FEET CLINICAL INDICATION: pain heel spur AP, lateral, and oblique plain film views of the left and right feet were obtained. COMPARISON: None. Left foot: No fracture or dislocation. There is no abnormal soft tissue swelling or bone erosion. Joint spaces of the left foot are well-maintained. There is a 9 mm calcaneal spur and small Achilles enthesophyte. No evidence of plantar fascia calcification or plantar soft tissue mass. Right foot: No fracture or dislocation. There is no abnormal soft tissue swelling or bone erosion. Joint spaces of the left foot are well-maintained. There is a 7 mm calcaneal spur and small Achilles enthesophyte. No evidence of plantar fascia calcification or plantar soft tissue mass. Impression: Calcaneal spurring bilaterally. No acute osseous findings. Report Dictated on --- Final --- Dictating Physician: MD LAWSON THOMAS Signed Date and Time: 09/17/2021 1:21 pm Signed by: MD LAWSON THOMAS Transcribed Date and Time: 09/17/2021 1:22 @RESULTINGLABINFO@ No results found for: LEVETIRACETA, FERRITIN, CRP, FRIEDA, ANCA No results found for: ADELE, IMMUNOGLOBUL, OLIGOBANDS No results found for: HWF57KG, HEPCAB No results found for: CRP, ANATITER, ANCA, ANCA ASSESSMENT AND PLAN: Diagnosis Plan 1. Intractable chronic migraine without aura and without status migrainosus predniSONE (Deltasone) 20 MG tablet topiramate (Topamax) 25 MG tablet topiramate 50 MG tablet SUMAtriptan (Imitrex) 50 MG tablet 2. Medication overuse headache predniSONE (Deltasone) 20 MG tablet Prednisone titration. Topiramate starting at 25 mg QPM for 7 days, then work up to 50 mg BID. Prednisione titration. She is not to take Excedrin of other OTC med during the five days she is on prednisone. I spent 30 minutes caring for this patient today, reviewing labs and records, seeing the patient, documenting in the record and arranging for studies. documented in this [facility]05-04-2023 Telephone encounter Note* Telephone Encounter - Isabella De Santiago LPN - 10/06/2022 8:36 AM EDT pt returning call. Office called to [phone] Miscellaneous Notes* Telephone Encounter - Isabella De Santiago LPN - 10/06/2022 8:36 AM EDT pt returning call. Office called to change depo appt location Appt moved documented in this [facility]11-10-2022 Evaluation + Plan note Diagnostic Tests Pending * Urine Culture 04/14/22 Future Scheduled Tests Radiology* XR Hand Minimum 3 Views Right 07/08/21 [facility] 11-10-2022 Hospital Discharge instructions Patient Education 04/14/2022 10:57:39 Bronchospasm (Adult) Bronchospasm (Adult) Bronchospasm occurs when the airways (bronchial tubes) go into spasm and contract. This makes it hard to breathe and causes wheezing (a high-pitched whistling sound). Bronchospasm can also cause frequent coughing without wheezing. Bronchospasm is due to irritation, inflammation, or allergic reaction of the airways. People with asthma get bronchospasm. However, not everyone with bronchospasm has asthma. Being exposed to harmful fumes, a recent case of bronchitis, exercise, or a flare-up of chronic obstructive pulmonary disease (COPD) may cause the airways to spasm. An episode of bronchospasm may last 7 to 14 days. Medicine may be prescribed to relax the airways and prevent wheezing. Antibiotics will be prescribed only if your healthcare provider thinks there is a bacterial infection. Antibioticsdo not help a viral infection. Home care Drink lots of water or other fluids (at least 10 glasses a day) during an attack. This will loosen lung secretions and make it easier to breathe. If you have heart or kidney disease, check with your doctor before you drink extra fluids. Take prescribed medicine exactly at the times advised. If you take an inhaled medicine to help withbreathing, don't use it more than once every 4 hours, unless told to do so. If prescribed an antibiotic or prednisone, take all of the medicine, even if you are feeling better after a few days. Don't smoke. Also avoid being exposed to secondhand smoke. If you were given an inhaler, use it exactly as directed. If you need to use it more often than prescribed, your condition may be getting worse. Contact your healthcare provider. Follow-up care Follow up with your healthcare provider, or as advised. If you are age 65 or older, have a chronic lung disease or condition that affects your immune system, or you smoke, ask your healthcare provider about getting a pneumococcal vaccine, as well as a yearly flu shot (influenza vaccine). When to seek medical advice Call your healthcare provider right away if any of these occur: You need to use your inhalers more often than usual Fever of 100.4 F (38 C) or higher, or as directed by your healthcare provider Cough that brings up lots of dark-colored sputum (mucus) You don't get better within 24 hours Call 911 Call 911 if any of these occur: Coughing up bloody sputum (mucus) Chest pain with each breath Increased wheezing or shortness of breath [phone] [employer]. [address] [place] [address], [place] [address]. All rights reserved. This information is not intended as a substitute for professional medical care. Always follow yourhealthcare professional's instructions. 04/14/2022 10:57:28 Urinary Tract Infections in Women Urinary Tract Infections in Women Urinary tract infections (UTIs) are most often caused by bacteria. These bacteria enter the urinarytract. The bacteria may come from outside the body. Or they may travel from the skin outside the rectum or vagina into the urethra. Female anatomy makes it easy for bacteria from the bowel to enter awoman s urinary tract, which is the most common source of UTI. This means women develop UTIs more often than men. Pain in or around the urinary tract is a common UTI symptom. But the only way to knowfor sure if you have a UTI for the healthcare provider to test your urine. The two tests that may be done are the urinalysis and urine culture. Types of UTIs Cystitis. A bladder infection (cystitis) is the most common UTI in women. You may have urgent or frequent urination. You may also have pain, burning when you urinate, and bloody urine. Urethritis. This is an inflamed urethra, which is the tube that carries urine from the bladder to outside the body. You may have lower stomach or back pain. You may also have urgent or frequent urination. Pyelonephritis. This is a kidney infection. If not treated, it can be serious and damage your kidneys. In severe cases, you may need to stay in the hospital. You may have a fever and lower back pain. Medicines to treat a UTI Most UTIs are treated with antibiotics. These kill the bacteria. The length of time you need to take them depends on the type of infection. It may be as short as 3 days. If you have repeated UTIs, you may need a low-dose antibiotic for several months. Take antibiotics exactly as directed. Don t stop taking them until all of the medicine is gone. If you stop taking the antibiotic too soon, the infection may not go away. You may also develop a resistance to the antibiotic. This can make it much harder to treat. Lifestyle changes to treat and prevent UTIs The lifestyle changes below will help get rid of your UTI. They may also help prevent future UTIs. Drink plenty of fluids. This includes water, juice, or other caffeine-free drinks. Fluids help flush bacteria out of your body. Empty your bladder. Always empty your bladder when you feel the urge to urinate. And always urinatebefore going to sleep. Urine that stays in your bladder can lead to infection. Try to urinate before and after sex as well. Practice good personal hygiene. Wipe yourself from front to back after using the toilet. This helpskeep bacteria from getting into the urethra. Use condoms during sex. These help prevent UTIs caused by sexually transmitted bacteria. Also don'tuse spermicides during sex. These can increase the risk for UTIs. Choose other forms of control instead. For women who tend to get UTIs after sex, a low-dose of a preventive antibiotic may be used. Be sure to discuss this option with your healthcare provider. Follow up with your healthcare provider as directed. He or she may test to make sure the infection has cleared. If needed, more treatment may be started. [id number] [employer]. [address] [place] [address]. All rights reserved. This information is not intended as a substitute for professional medical care. Always follow yourhealthcare professional's instructions. Follow Up Care 04/14/2022 09:35:16 With:Call MARY Copeland Pt. Refferral [phone] Address:Unknown When:2-4 days [facility] 11-10-2022 Note Discharge Instructions Thank you for allowing [facility] to assist you with your healthcare needs. The following is importantdischarge information regarding your hospital visit. Diagnosis from Today's Visit Cough Wheeze UTI - Urinary tract infection Vomiting What to Do Next Instructions from Your Care Team No qualifying data available. Post Acute Orders No qualifying data available. You Need to Schedule the Following Appointments Follow Up with Call MARY Copeland Pt. Refferral [phone] When Within 2-4 days Allergies Vicodin codeine sulfate Medications Please ask your primary doctor or pharmacist before taking any other medication not listed, including over the counter drugs, herbal medications, vitamins and or supplements as they may interact withyour home medications. What How Much When Why Instructions Last Dose New cephalexin (cephalexin 500 mg oral capsule) 1 cap by mouth Every 12 hours Cough Wheeze Duration: 7 Days Printed Prescription New prochlorperazine (Compazine use prochlorperazine ) 10 Milligram by mouth Three (3) times a day Cough Wheeze Duration: 3 Days Printed Prescription Changed albuterol (albuterol MDI (90 mcg/ inh) CFC free inhalation aerosol) 2 puff(s) by inhalation Every 6 hours as needed for as needed for wheezing Nausea Changed albuterol (albuterol MDI (90 mcg/ inh) CFC free inhalation aerosol) 2 puff(s) by inhalation Every 4 hours Cough Wheeze Printed Prescription Changed albuterol (albuterol MDI (90 mcg/ inh) CFC free inhalation aerosol) 2 puff(s) by inhalation Four (4) times a day Acute infection of sinus Changed albuterol (ProAir HFA MDI (90 mcg/ inh) inhalation aerosol) 2 puff(s) by inhalation Four (4) times a day as needed for as needed for wheezing Changed predniSONE (predniSONE 10 mg oral tablet) 4 tab(s) by mouth Once a day Acute infection of sinus Duration: 5 Days Changed predniSONE (predniSONE 20 mg oral tablet) 3 tab(s) by mouth Once a day Cough Wheeze Duration: 4 Days Printed Prescription Unchanged DME (DME MISCellaneous) TENS UNIT Chronic neck pain SA CASE TENS UNIT E0730 REDUCING CHRONIC INTRACTABLE PAIN, 4 LEAD FOR MULTIPLE SITES; tens unit EO730, reducing chronic intractable pain, 4 lead for multiple pain sites. Certificate of medical necessity, the above identified equipment is deemed medically necessary for an estimated period of time -one month rental with option to purchase. Treatment instructions, tens unit: rate 80 width 80 alternating C for 2 hours, M for 1 hour. Wearing time: 8-10 hour TENS supplies as needed. Unchanged famotidine (famotidine 40 mg oral tablet) 1 tab(s) by mouth Daily at bedtime for reflux Unchanged fluticasone nasal (Flonase 50 mcg/ inh nasal spray) 1 spray(s) each nostril Two (2) times a day Acute infection of sinus Duration: 7 Days Unchanged gabapentin (Neurontin 600 mg oral tablet) 1 tab(s) by mouth Three (3) times a day Lumbosacral radiculopathy Duration: 30 Days Unchanged hydrOXYzine (hydrOXYzine pamoate 25 mg oral capsule) Unchanged ibuprofen (ibuprofen 800 mg oral tablet) 1 tab(s) by mouth Every 12 hours as needed for as needed for pain DDD (degenerative disc disease), lumbar Unchanged lamoTRIgine (lamoTRIgine 200 mg oral tablet) 1 tab(s) by mouth Two (2) times a day Unchanged medroxyPROGESTERone (Depo-Provera Contraceptive 150 mg/ mL intramuscular suspension) 1 Milliliter Intramuscular Every 3 months Unchanged multivitamin (B-Plex (Vitamin B Complex) oral tablet) 1 tab(s) by mouth Every day okay to change to brand covered by insurance. Unchanged multivitamin (Multivitamin) 1 tab(s) by mouth Every day Unchanged ondansetron (ondansetron 4 mg oral tablet) 1 tab(s) by mouth Every 6 hours as needed for Nausea/Vomiting Nausea Unchanged tiZANidine (tiZANidine 4 mg oral tablet) 1 tab(s) by mouth Every 8 hours Unchanged zolpidem (zolpidem 10 mg oral tablet) 1 tab(s) by mouth Daily at bedtime Please take this list to your next doctor s visit. Bring all medications you take, including over the counter medications, herbals and other supplements with you to your doctor s visit. Patients and families are reminded to discard old lists and to update any records with all medication providers or retail pharmacies. Medication Leaflets prednisone (PRED ni sone) Angel What is the most important information I should know about prednisone? You should not use prednisone if you have a fungal infection anywhere in your body. You should not stop using prednisone suddenly. Follow your doctor's instructions about tapering your dose. What is prednisone? Prednisone is a steroid that reduces inflammation in the body, and also suppresses your immune system. Prednisone is used to treat many different conditions such as hormonal disorders, skin diseases, arthritis, lupus, psoriasis, allergic conditions, ulcerative colitis, Crohn's disease, eye diseases, lung diseases, asthma, tuberculosis, blood cell disorders, kidney disorders, leukemia, lymphoma, multi ple sclerosis, organ transplant rejection, swelling from a brain tumor or injury. Prednisone may also be used for purposes not listed in this medication guide. What should I discuss with my healthcare provider before taking prednisone? You should not use prednisone if you are allergic to it, or if you have a fungal infection anywherein your body. Steroid medication can weaken your immune system, making it easier for you to get an infection or worsening an infection you already have. Tell your doctor about any illness or infection you've had within the past several weeks. Tell your doctor if you have ever had: heart problems, high blood pressure, or a heart attack; glaucoma or cataracts; herpes infection of the eyes; past or present tuberculosis; a parasite infection that causes diarrhea (such as threadworms); any illness that causes diarrhea; underactive thyroid; diabetes; a stomach ulcer, diverticulitis; a colostomy or ileostomy; osteoporosis or low bone mineral density (steroid medication can increase your risk of bone loss); low levels of calcium or potassium in your blood; cirrhosis or other liver disease; mental illness or psychosis; or a muscle disorder such as myasthenia gravis. Long-term use of steroids may lead to bone loss (osteoporosis), especially if you smoke or drink alcohol, if you do not exercise, or if you do not get enough vitamin D or calcium in your diet. It is not known whether this medicine will harm an unborn baby. Tell your doctor if you are or plan to become . You should not breastfeed while using prednisone. How should I take prednisone? Follow all directions on your prescription label and read all medication guides or instruction sheets. Your doctor may occasionally change your dose. Use the medicine exactly as directed. Prednisone is taken daily or every other day, depending on the condition being treated. You may need to take the medicine at a certain time of day. Follow your doctor's instructions about when and how often to take this medicine. Take with food if prednisone upsets your stomach. Measure liquid medicine carefully. Use the dosing syringe provided, or use a medicine dose-measuring device (not a kitchen spoon). Swallow the delayed-release tablet whole and do not crush, chew, or break it. Prednisone can weaken (suppress) your immune system, and you may get an infection more easily. Callyour doctor if you have signs of infection (fever, weakness, cold or flu symptoms, skin sores, diarrhea, frequent or recurring illness). If you have major surgery or a severe injury or infection, your prednisone dose needs may change. Make sure any doctor caring for you knows you are using this medicine. If you use this medicine long-term, you may need medical tests and vision exams. In case of emergency, wear or carry medical identification to let others know you use a steroid. You should not stop using prednisone suddenly. Follow your doctor's instructions about tapering your dose. Store at room temperature away from moisture, heat, and light. What happens if I miss a dose? Take the medicine as soon as you can, but skip the missed dose if it is almost time for your next dose. Do not take two doses at one time. What happens if I overdose? Seek emergency medical attention or call the Poison Help line at . High doses or long-term use of prednisone can lead to thinning skin, easy bruising, changes in bodyfat (especially in your face, neck, back, and waist), increased acne or facial hair, menstrual problems, impotence, or loss of interest in sex. What should I avoid while taking prednisone? Do not receive a 'live' vaccine while using prednisone. The vaccine may not work as well and may not fully protect you from disease. Live vaccines include measles, mumps, rubella (MMR), polio, rotavirus, typhoid, yellow fever, varicella (chickenpox), zoster (shingles), and nasal flu (influenza) vaccine. Avoid being near people who are sick or have infections. Call your doctor for preventive treatment if you are exposed to chickenpox or measles. These conditions can be serious or even fatal in peoplewho are using steroid medicine. Avoid drinking alcohol. What are the possible side effects of prednisone? Get emergency medical help if you have signs of an allergic reaction: hives; difficult breathing; swelling of your face, lips, tongue, or throat. Call your doctor at once if you have: muscle pain or weakness; blurred vision, tunnel vision, eye pain, or seeing halos around lights; severe depression, changes in personality, unusual thoughts or behavior; bloody or tarry stools, coughing up blood or vomit that looks like coffee grounds; swelling, rapid weight gain, feeling short of breath; irregular heartbeats; severe headache, pounding in your neck or ears; decreased adrenal gland hormones--muscle weakness, tiredness, diarrhea, nausea, menstrual changes, skin discoloration, craving salty foods, and feeling light- headed; or low potassium level--leg cramps, constipation, irregular heartbeats, fluttering in your chest, increased thirst or urination, numbness or tingling, muscle weakness or limp feeling. Prednisone can affect growth in children. Tell your doctor if your child is not growing at a normalrate while using this medicine. Common side effects may include: weight gain (especially in your face or your upper back and torso); increased appetite; mood changes, trouble sleeping; changes in your menstrual periods; problems with memory or thought; muscle or joint pain; weakness; headache, dizziness, spinning sensation; nausea, bloating, loss of appetite; slow wound healing; or acne, increased sweating, thinning skin, bruising, pinpoint spots under your skin. This is not a complete list of side effects and others may occur. Call your doctor for medical advice about side effects. You may report side effects to FDA at 8-261-PNS-6255. What other drugs will affect prednisone? Sometimes it is not safe to use certain medications at the same time. Some drugs can affect your blood levels of other drugs you take, which may increase side effects or make the medications less effective. Tell your doctor about all your current medicines. Many drugs can affect prednisone, especially: bupropion; cyclosporine; digoxin; ketoconazole; an antibiotic; control pills or hormone replacement therapy; a diuretic or 'water pill'; insulin or oral diabetes medicine; a blood thinner--warfarin, Coumadin, Jantoven; or NSAIDs (nonsteroidal anti-inflammatory drugs)--aspirin, ibuprofen (Advil, Motrin), naproxen (Aleve), celecoxib, diclofenac, indomethacin, meloxicam, and others. This list is not complete and many other drugs may affect prednisone. This includes prescription and prvw-wkp-gsyzdep medicines, vitamins, and herbal products. Not all possible drug interactions are listed here. Where can I get more information? Your pharmacist can provide more information about prednisone. Remember, keep this and all other medicines out of the reach of children, never share your medicines with others, and use this medication only for the indication prescribed. Every effort has been made to ensure that the information provided by [employer]. ('[employer]') is accurate, up-to-date, and complete, but no guarantee is made to that effect. Drug information contained herein may be time sensitive. [employer] information has been compiled for use by healthcare practitioners and consumers in the [place] and therefore [employer] does not warrant that uses outside of the [place] are appropriate, unless specifically indicated otherwise. [facility] drug information does not endorse drugs, diagnose patients or recommend therapy. [facility] drug information isan informational resource designed to assist licensed healthcare practitioners in caring for their p atients and/or to serve consumers viewing this service as a supplement to, and not a substitute for, the expertise, skill, knowledge and judgment of healthcare practitioners. The absence of a warningfor a given drug or drug combination in no way should be construed to indicate that the drug or drug combination is safe, effective or appropriate for any given patient. [facility] does not assume any responsibility for any aspect of healthcare administered with the aid of information [facility] provides. The information contained herein is not intended to cover all possible uses, directions, precautions, warnings, drug interactions, allergic reactions, or adverse effects. If you have questions about the drugs you are taking, check with your doctor, nurse or pharmacist. Copyright 1889-7933 [email or web address]. Version: 10.. Revision Date: 08/30/2018. cephalexin (sef a CJ in) Keflex What is the most important information I should know about cephalexin? You should not use this medicine if you are allergic to cephalexin or to similar antibiotics, such as Ceftin, Cefzil, Omnicef, and others. Tell your doctor if you are allergic to any drugs, especially penicillins or other antibiotics. What is cephalexin? Cephalexin is a cephalosporin (SEF a low spor in) antibiotic that is used to treat bacterial infections of the lungs, ear, skin, bones, bladder, and kidneys. Cephalexin is used to treat infections in adults and children who are at least 1 year old. Cephalexin may also be used for purposes not listed in this medication guide. What should I discuss with my healthcare provider before taking cephalexin? You should not use this medicine if you are allergic to cephalexin or any other cephalosporin antibiotic (cefdinir, cefadroxil, cefoxitin, cefprozil, ceftriaxone, cefuroxime, Omnicef, and others). Tell your doctor if you have ever had: an allergy to any drug (especially penicillin); liver or kidney disease; or intestinal problems, such as colitis. The liquid form of cephalexin may contain sugar. This may affect you if you have diabetes. Tell your doctor if you are or breast-feeding. How should I take cephalexin? Follow all directions on your prescription label and read all medication guides or instruction sheets. Use the medicine exactly as directed. Do not use cephalexin to treat any condition that has not been checked by your doctor. Measure liquid medicine carefully. Use the dosing syringe provided, or use a medicine dose-measuring device (not a kitchen spoon). Use this medicine for the full prescribed length of time, even if your symptoms quickly improve. Skipping doses can increase your risk of infection that is resistant to medication. Cephalexin will not treat a viral infection such as the flu or a common cold. Do not share cephalexin with another person, even if they have the same symptoms you have. This medicine can affect the results of certain medical tests. Tell any doctor who treats you that you are using cephalexin. Store the tablets and capsules at room temperature away from moisture, heat, and light. Store the liquid medicine in the refrigerator. Throw away any unused liquid after 14 days. What happens if I miss a dose? Take the medicine as soon as you can, but skip the missed dose if it is almost time for your next dose. Do not take two doses at one time. What happens if I overdose? Seek emergency medical attention or call the Poison Help line at . Overdose symptoms may include nausea, vomiting, stomach pain, diarrhea, and blood in your urine. What should I avoid while taking cephalexin? Antibiotic medicines can cause diarrhea, which may be a sign of a new infection. If you have diarrhea that is watery or bloody, call your doctor before using anti-diarrhea medicine. What are the possible side effects of cephalexin? Get emergency medical help if you have signs of an allergic reaction (hives, difficult breathing, swelling in your face or throat) or a severe skin reaction (fever, sore throat, burning eyes, skin pain, red or purple skin rash with blistering and peeling). Call your doctor at once if you have: severe stomach pain, diarrhea that is watery or bloody (even if it occurs months after your last dose); unusual tiredness, feeling light-headed or short of breath; easy bruising, unusual bleeding, purple or red spots under your skin; a seizure; pale skin, cold hands and feet; yellowed skin, dark colored urine; fever, weakness; or pain in your side or lower back, painful urination. Common side effects may include: diarrhea; nausea, vomiting; indigestion, stomach pain; or vaginal itching or discharge. This is not a complete list of side effects and others may occur. Call your doctor for medical advice about side effects. You may report side effects to FDA at 3-470-EFB-5492. What other drugs will affect cephalexin? Tell your doctor about all your other medicines, especially: metformin; or probenecid. This list is not complete. Other drugs may affect cephalexin, including prescription and rwmo-qae-qozhond medicines, vitamins, and herbal products. Not all possible drug interactions are listed here. Where can I get more information? Your pharmacist can provide more information about cephalexin. Remember, keep this and all other medicines out of the reach of children, never share your medicines with others, and use this medication only for the indication prescribed. Every effort has been made to ensure that the information provided by [employer]') is accurate, up-to-date, and complete, but no guarantee is made to that effect. Drug information contained herein may be time sensitive. [employer] information has been compiled for use by healthcare practitioners and consumers in the [place] and therefore [employer] does not warrant that uses outside of the [place] are appropriate, unless specifically indicated otherwise. [facility] drug information does not endorse drugs, diagnose patients or recommend therapy. [facility] drug information isan informational resource designed to assist licensed healthcare practitioners in caring for their p atients and/or to serve consumers viewing this service as a supplement to, and not a substitute for, the expertise, skill, knowledge and judgment of healthcare practitioners. The absence of a warningfor a given drug or drug combination in no way should be construed to indicate that the drug or drug combination is safe, effective or appropriate for any given patient. [employer] does not assume any responsibility for any aspect of healthcare administered with the aid of information [employer] provides. The information contained herein is not intended to cover all possible uses, directions, precautions, warnings, drug interactions, allergic reactions, or adverse effects. If you have questions about the drugs you are taking, check with your doctor, nurse or pharmacist. Copyright 5918-3115 [employer]. Version: 10.03. Revision Date: 06/08/2020. prochlorperazine (oral/injection) (pro klor PER clemente merlos) What is the most important information I should know about prochlorperazine? You should not use prochlorperazine if you have recently used alcohol, sedatives, tranquilizers, ornarcotic medications. Prochlorperazine is not approved for use by anyone younger than 2 years old or weighing less than 20 pounds. Do not give this medicine to a child before or after a surgery. Prochlorperazine is not approved for use in older adults with dementia-related psychosis. Call your doctor at once if you have uncontrollable movements of your eyes, lips, tongue, face, arms, or legs. These could be early signs of dangerous side effects. What is prochlorperazine? Prochlorperazine is a phenothiazine (WJYW-kn-OPKS-a-zeen) antipsychotic medicine that is used to treat anxiety or schizophrenia. Prochlorperazine is also used to control severe nausea and vomiting. Prochlorperazine may also be used for purposes not listed in this medication guide. What should I discuss with my healthcare provider before using prochlorperazine? You should not use this medicine if you are allergic to prochlorperazine or other phenothiazines (such as chlorpromazine, fluphenazine, perphenazine, promethazine, thioridazine, or trifluoperazine). Do not use prochlorperazine if you have recently used large amounts of alcohol or medicine that makes you sleepy. Prochlorperazine is not approved for use by anyone younger than 2 years old or weighing less than 20 pounds. Talk with your doctor before giving prochlorperazine to a child or teenager with a fever, flu symptoms, vomiting, or diarrhea. Do not give this medicine to a child before or after a surgery. Prochlorperazine may increase the risk of in older adults with dementia- related psychosis andis not approved for this use. Tell your doctor if you have ever had: heart disease; seizures, or a brain tumor; low white blood cell (WBC) counts; glaucoma; pheochromocytoma (tumor of the adrenal gland); low blood pressure; breast cancer; or chemotherapy. Tell your doctor if you will be exposed to extreme heat or cold, or to insecticide poisons while you are using prochlorperazine. Tell your doctor if you are or you get . Taking antipsychotic medication during the last 3 months of may cause breathing problems, feeding problems, or withdrawal symptoms in the . It may not be safe to breastfeed while using this medicine. Ask your doctor about any risk. How should I use prochlorperazine? Follow all directions on your prescription label and read all medication guides or instruction sheets. Your doctor may occasionally change your dose. Use the medicine exactly as directed. Prochlorperazine oral is taken by mouth. Prochlorperazine doses are based on weight in children. Your child's dose needs may change if the child gains or loses weight. Prochlorperazine injection is injected into a muscle or as an infusion into a vein. A healthcare provider will give you this injection. After receiving a prochlorperazine injection, you may need to remain lying down for at least 30 minutes. You may feel light-headed when you first stand up. If you use prochlorperazine long-term, you may need frequent medical tests. Do not stop using prochlorperazine suddenly after long-term use, or you could have unpleasant symptoms such as nausea, vomiting, dizziness, or tremors. Ask your doctor how to safely stop using this medicine. Store at room temperature away from moisture, heat, and light. What happens if I miss a dose? Use the medicine as soon as you can, but skip the missed dose if it is almost time for your next dose. Do not use two doses at one time. What happens if I overdose? Seek emergency medical attention or call the Poison Help line at . Overdose can cause severe drowsiness, irregular heartbeats, agitation, seizure, or fainting. What should I avoid while using prochlorperazine? Drinking alcohol with this medicine can cause side effects. Avoid driving or hazardous activity until you know how this medicine will affect you. This medicinemay cause dizziness or blurred vision and may impair your reactions. Dizziness can cause falls, accidents, or severe injuries. Avoid getting up too fast from a sitting or lying position, or you may feel dizzy. Prochlorperazine could make you sunburn more easily. Avoid sunlight or tanning beds. Wear protective clothing and use sunscreen (SPF 30 or higher) when you are outdoors. What are the possible side effects of prochlorperazine? Get emergency medical help if you have signs of an allergic reaction: hives; difficult breathing; swelling of your face, lips, tongue, or throat. High doses or long-term use of prochlorperazine can cause a serious movement disorder that may not be reversible. The longer you use prochlorperazine, the more likely you are to develop this disorder, especially if you are a woman or an older adult. Call your doctor at once if you have: uncontrolled muscle movements in your arms and legs, or your face (chewing, lip smacking, frowning,tongue movement, blinking or eye movement); trouble speaking or swallowing, stiffness or muscle spasms in your neck; tremors, or any new or unusual muscle movements you cannot control; extreme drowsiness or light-headed feeling (like you might pass out); little or no urination; agitation, restlessness; severe constipation, stomach pain, bloating; jaundice (yellowing of the skin or eyes); low blood cell counts--fever, chills, sore throat, cough, trouble breathing, mouth sores, skin sores, pale skin, easy bruising or bleeding; lupus-like symptoms--muscle or joint pain, flu symptoms, chest pain, and a rash or patchy skin color that worsens in sunlight; or severe nervous system reaction--very stiff (rigid) muscles, high fever, sweating, confusion, fast or uneven heartbeats. Side effects such as dry mouth, constipation, confusion, and tremors may be more likely in older adults. Common side effects may include: headache, dizziness, drowsiness; dry mouth, stuffy nose; nausea, constipation; increased appetite, weight gain; blurred vision; agitation, feeling jittery, trouble sleeping; skin redness, itching, or rash; missed menstrual periods; or impotence, abnormal ejaculation. This is not a complete list of side effects and others may occur. Call your doctor for medical advice about side effects. You may report side effects to FDA at 4-371-OBX-5035. What other drugs will affect prochlorperazine? Using prochlorperazine with other drugs that make you sleepy or slow your breathing can cause dangerous side effects. Ask your doctor before using opioid medication, a sleeping pill, a muscle relaxer, or medicine for anxiety or seizures. Tell your doctor about all your current medicines. Many drugs can affect prochlorperazine, especially: lithium; propranolol; a diuretic or 'water pill'; a blood thinner (warfarin, Coumadin, Jantoven); or seizure medication. This list is not complete and many other drugs may affect prochlorperazine. This includes prescription and jhnh-jhp-pervkkc medicines, vitamins, and herbal products. Not all possible drug interactions are listed here. Where can I get more information? Your pharmacist can provide more information about oral prochlorperazine. Remember, keep this and all other medicines out of the reach of children, never share your medicines with others, and use this medication only for the indication prescribed. Every effort has been made to ensure that the information provided by [employer] is accurate, up-to-date, and complete, but no guarantee is made to that effect. Drug information contained herein may be time sensitive. [employer] information has been compiled for use by healthcare practitioners and consumers in the [place] and therefore [employer] does not warrant that uses outside of the [place] are appropriate, unless specifically indicated otherwise. [facility] drug information does not endorse drugs, diagnose patients or recommend therapy. [facility] drug information isan informational resource designed to assist licensed healthcare practitioners in caring for their p atients and/or to serve consumers viewing this service as a supplement to, and not a substitute for, the expertise, skill, knowledge and judgment of healthcare practitioners. The absence of a warningfor a given drug or drug combination in no way should be construed to indicate that the drug or drug combination is safe, effective or appropriate for any given patient. [employer] does not assume any responsibility for any aspect of healthcare administered with the aid of information [employer] provides. The information contained herein is not intended to cover all possible uses, directions, precautions, warnings, drug interactions, allergic reactions, or adverse effects. If you have questions about the drugs you are taking, check with your doctor, nurse or pharmacist. Copyright 6038-5197 [employer]. Version: 12.. Revision Date: 09/27/2019. albuterol inhalation (al BYOO ter all) ProAir HFA, ProAir RespiClick, Proventil HFA, Ventolin HFA What is the most important information I should know about albuterol inhalation? Follow all directions on your medicine label and package. Tell each of your healthcare providers about all your medical conditions, allergies, and all medicines you use. What is albuterol inhalation? Albuterol inhalation is a bronchodilator that is used to treat or prevent bronchospasm in people with reversible obstructive airway disease. Albuterol is also used to prevent exercise-induced bronchospasm. Albuterol inhalation is for use in adults and children at least 4 years old. Albuterol inhalation may also be used for purposes not listed in this medication guide. What should I discuss with my healthcare provider before using albuterol inhalation? You should not use this medicine if you are allergic to albuterol. You should not use ProAir RespiClick if you are allergic to milk proteins. Tell your doctor if you have ever had: heart disease, high blood pressure; a thyroid disorder; seizures; diabetes; or low levels of potassium in your blood. Tell your doctor if you are or plan to become . It is not known whether albuterol will harm an unborn baby. However, having uncontrolled asthma during may increase the riskof premature , low weight, or eclampsia (dangerously high blood pressure that can lead to medical problems in both mother and baby). The benefit of preventing bronchospasm may outweigh any risks to the baby. If you are , your name may be listed on a registry to track the effects of albuterol on the baby. It may not be safe to breastfeed while using this medicine. Ask your doctor about any risk. How should I use albuterol inhalation? Follow all directions on your prescription label and read all medication guides. Use the medicine exactly as directed. Do not allow a young child to use albuterol inhalation without help from an adult. To prevent exercise-induced bronchospasm, use this medicine 15 to 30 minutes before you exercise. The effects of albuterol inhalation should last about 4 to 6 hours. Seek medical attention if your breathing problems get worse quickly, or if you think your asthma medications are not working as well. Read and carefully follow any Instructions for Use provided with your medicine. Ask your doctor or pharmacist if you do not understand these instructions. ProAir HFA, Proventil HFA, or Ventolin HFA must be shaken before each use. You do not need to shakeProAir RespiClick before using. Do not try to clean or take apart the ProAir RespiClick inhaler device. Always use the new inhaler device provided with your refill. Do not float a medicine canister in water to see if it is empty. Your dose needs may change due to surgery, illness, stress, or a recent asthma attack. Do not change your dose or dosing schedule without your doctor's advice. Store at room temperature away from moisture, heat, or cold temperatures. Keep the cover on your ProAir RespiClick inhaler when not in use. Store Proventil or Ventolin with the mouthpiece down. Keep the inhaler canister away from open flame or high heat. The canister may explode if it gets too hot. Do not puncture or burn an empty inhaler canister. What happens if I miss a dose? Use the medicine as soon as you can, but skip the missed dose if it is almost time for your next dose. Do not use two doses at one time. Get your prescription refilled before you run out of medicine completely. What happens if I overdose? Seek emergency medical attention or call the Poison Help line at . An overdose of albuterol can be fatal. Overdose symptoms may include dry mouth, tremors, chest pain, fast heartbeats, nausea, general ill feeling, seizure, feeling light-headed or fainting. What should I avoid while using albuterol inhalation? Rinse with water if this medicine gets in your eyes. What are the possible side effects of albuterol inhalation? Get emergency medical help if you have signs of an allergic reaction: hives; difficult breathing; swelling of your face, lips, tongue, or throat. Call your doctor at once if you have: wheezing, choking, or other breathing problems after using this medicine; chest pain, fast heart rate, pounding heartbeats or fluttering in your chest; severe headache, pounding in your neck or ears; pain or burning when you urinate; high blood sugar--increased thirst, increased urination, dry mouth, fruity breath odor; or low potassium--leg cramps, constipation, irregular heartbeats, increased thirst or urination, numbness or tingling, muscle weakness or limp feeling. Common side effects may include: chest pain, fast or pounding heartbeats; upset stomach, vomiting; painful urination; dizziness; feeling shaky or nervous; headache, back pain, body aches; or cough, sore throat, sinus pain, runny or stuffy nose. This is not a complete list of side effects and others may occur. Call your doctor for medical advice about side effects. You may report side effects to FDA at 0-986-NVE-7076. What other drugs will affect albuterol inhalation? Tell your doctor about all your other medicines, especially: any other inhaled medicines or bronchodilators; digoxin; a diuretic or 'water pill'; an antidepressant--amitriptyline, desipramine, imipramine, doxepin, nortriptyline, and others; a beta mason--atenolol, carvedilol, labetalol, metoprolol, propranolol, sotalol, and others; or an MAO inhibitor--isocarboxazid, linezolid, methylene blue injection, phenelzine, rasagiline, selegiline, tranylcypromine, and others. This list is not complete. Other drugs may affect albuterol inhalation, including prescription and ldgk-glm-wiyrvmr medicines, vitamins, and herbal products. Not all possible drug interactions are listed here. Where can I get more information? Your pharmacist can provide more information about albuterol inhalation. Remember, keep this and all other medicines out of the reach of children, never share your medicines with others, and use this medication only for the indication prescribed. Every effort has been made to ensure that the information provided by [employer] is accurate, up-to-date, and complete, but no guarantee is made to that effect. Drug information contained herein may be time sensitive. [employer] information has been compiled for use by healthcare practitioners and consumers in the [place] and therefore [employer] does not warrant that uses outside of the [place] are appropriate, unless specifically indicated otherwise. [facility] drug information does not endorse drugs, diagnose patients or recommend therapy. [facility] drug information isan informational resource designed to assist licensed healthcare practitioners in caring for their p atients and/or to serve consumers viewing this service as a supplement to, and not a substitute for, the expertise, skill, knowledge and judgment of healthcare practitioners. The absence of a warningfor a given drug or drug combination in no way should be construed to indicate that the drug or drug combination is safe, effective or appropriate for any given patient. [employer] does not assume any responsibility for any aspect of healthcare administered with the aid of information [employer] provides. The information contained herein is not intended to cover all possible uses, directions, precautions, warnings, drug interactions, allergic reactions, or adverse effects. If you have questions about the drugs you are taking, check with your doctor, nurse or pharmacist. Copyright 9188-5698 [employer]. Version: .. Revision Date: 04/22/2020. Education Materials Bronchospasm (Adult) Bronchospasm occurs when the airways (bronchial tubes) go into spasm and contract. This makes it hard to breathe and causes wheezing (a high-pitched whistling sound). Bronchospasm can also cause frequent coughing without wheezing. Bronchospasm is due to irritation, inflammation, or allergic reaction of the airways. People with asthma get bronchospasm. However, not everyone with bronchospasm has asthma. Being exposed to harmful fumes, a recent case of bronchitis, exercise, or a flare-up of chronic obstructive pulmonary disease (COPD) may cause the airways to spasm. An episode of bronchospasm may last 7 to 14 days. Medicine may be prescribed to relax the airways and prevent wheezing. Antibiotics will be prescribed only if your healthcare provider thinks there is a bacterial infection. Antibioticsdo not help a viral infection. Home care Drink lots of water or other fluids (at least 10 glasses a day) during an attack. This will loosen lung secretions and make it easier to breathe. If you have heart or kidney disease, check with your doctor before you drink extra fluids. Take prescribed medicine exactly at the times advised. If you take an inhaled medicine to help withbreathing, don't use it more than once every 4 hours, unless told to do so. If prescribed an antibiotic or prednisone, take all of the medicine, even if you are feeling better after a few days. Don't smoke. Also avoid being exposed to secondhand smoke. If you were given an inhaler, use it exactly as directed. If you need to use it more often than prescribed, your condition may be getting worse. Contact your healthcare provider. Follow-up care Follow up with your healthcare provider, or as advised. If you are age 65 or older, have a chronic lung disease or condition that affects your immune system, or you smoke, ask your healthcare provider about getting a pneumococcal vaccine, as well as a yearly flu shot (influenza vaccine). When to seek medical advice [facility]11-10-2022 Note ORIGINAL EXAMINATION: ONE XRAY VIEW OF THE CHEST11/03/2022 10:41 am COMPARISON: None available HISTORY: ORDERING SYSTEM PROVIDED HISTORY: Reason for Exam: cough, wheezing FINDINGS: The cardiomediastinal contours are normal.There is likely breast summation artifact over the lower lungs. there is no consolidation, vascular congestion, pleural effusion, or pneumothorax. There are no acute abnormalities to osseous structures. IMPRESSION: No acute radiographic findings. Interpreted by: Matias Chow DO Preliminary Report By: Matias Chow DO Electronically signed By Matias Chow DO Dictated Date: 04/14/2022 10:43:58 AM Prelim Date: 04/14/2022 10:45:23 AM Sign Date: 04/14/2022 10:45:23 AM Ordering Provider: AUBREY [facility]11-10-2022 Note ORIGINAL EXAMINATION: ONE XRAY VIEW OF THE CHEST04/14/2022 10:41 am COMPARISON: None available HISTORY: ORDERING SYSTEM PROVIDED HISTORY: Reason for Exam: cough, wheezing FINDINGS: The cardiomediastinal contours are normal.There is likely breast summation artifact over the lower lungs. there is no consolidation, vascular congestion, pleural effusion, or pneumothorax. There are no acute abnormalities to osseous structures. IMPRESSION: No acute radiographic findings. Interpreted by: Matias Chow DO Preliminary Report By: Matias Chow DO Electronically signed By Matias Chow DO Dictated Date: 04/14/2022 10:43:58 AM Prelim Date: 04/14/2022 10:45:23 AM Sign Date: 04/14/2022 10:45:23 AM Ordering Provider: AUBREY [facility]08-10-2022 Hospital Discharge instructions Patient Education 01/12/2022 21:42:05 Health Effects of Smoking Health Effects of Smoking Health studies have shown that smoking can affect your heart as well as your lungs. Smoking also raises your risk of certain cancers. These are all good reasons to quit. How smoking affects your body Smoking has been linked with many serious illnesses. It also has been shown to increase signs of aging. A few of the health effects of smoking are listed below. Smoking can: Raise your risk of lung cancer, bladder cancer, and cervical cancer Harm your lungs and cause problems with breathing. This includes emphysema and COPD (chronic obstructive pulmonary disease) . Raise blood pressure. This raises your risk for heart attack or stroke. Reduce blood flow. This can slow healing and cause wrinkles. In women, cause bleeding problems, miscarriage, stillbirth, or defects In men, cause problems with erections What happens when you smoke? When you smoke, your breathing becomes shallow. Your lungs fill with smoke. Smoking cigarettes alsofills your body with chemicals, such as nicotine and tar. Here s how these things affect your body: Smoke. Cigarette smoke contains carbon monoxide. This gas takes the place of oxygen in your blood. Nicotine. This drug raises your blood pressure and heart rate. It reduces blood flow to your arms and legs. And it slows digestion. Tar. Tar is what s left after tobacco is smoked. This sticky brown material gums up your lungs. This causes less oxygen to get into your bloodstream. Other chemicals. Cigarette smoke contains more than 4,000 other chemicals. They include formaldehyde, arsenic, and lead. Dozens of these chemicals are known to cause cancer. Get help and more information Smokefree.gov. Go to smokefree.gov or call 455-PPIS-GJZ (164-603-1162). National Cancer Smilax Smoking Quitline. Go to THEVA/ytk-atnt-frb or call 724-45V-PHBL(609-302-5728). 5716-1447 [employer]. [address] [place] [address]. All rights reserved. This information is not intended as a substitute for professional medical care. Always follow [facility] professional's instructions. 01/12/2022 21:41:51 Acute Sinusitis Acute Sinusitis Acute sinusitis is irritation and swelling of the sinuses. It is usually caused by a viral infection after a common cold. Your doctor can help you find relief. What is acute sinusitis? Sinuses are air-filled spaces in the skull behind the face. They are kept moist and clean by a lining of mucosa. Things such as pollen, smoke, and chemical fumes can irritate the mucosa. It can then swell up. As a response to irritation, the mucosa makes more mucus and other fluids. Tiny hairlike cilia cover the mucosa. Cilia help carry mucus toward the opening of the sinus. Too much mucus may cause the cilia to stop working. This blocks the sinus opening. A buildup of fluid in the sinuses thencauses pain and pressure. It can also encourage bacteria to grow in the sinuses. Common symptoms of acute sinusitis You may have: Facial soreness pain Headache Fever Fluid draining in the back of the throat (postnasal drip) Congestion Drainage that is thick and colored, instead of clear Cough Diagnosing acute sinusitis Your doctor will ask about your symptoms and health history. He or she will look at your ear, nose,and throat. You usually won't need to have X-rays taken. The doctor may take a sample of mucus to check for bacteria. If you have sinusitis that keeps coming back, you may need imaging tests such as X-rays or CAT scans. This will help your doctor check fora structural problem that may be causing the infection. Treating acute sinusitis Treatment is aimed at unblocking the sinus opening and helping the cilia work again. You may need to take antihistamine and decongestant medicine. These can reduce inflammation and decrease the amount of fluid your sinuses make. If you have a bacterial infection, you will need to take antibiotic medicine for 10 to 14 days. Take this medicine until it is gone, even if you feel better. 1270-4401 [employer]. [address] [place] [address]. All rights reserved. This information is not intended as a substitute for professional medical care. Always follow yourhealthcare professional's instructions. Follow Up Care 01/12/2022 21:34:31 With:EDGAR RIZO MD Address: [place] [facility] [place] [address]- When:2-4 days With:Call Physician Referral Address:Unknown When:2-4 days [facility] 08-10-2022 Note Discharge Instructions Thank you for allowing [facility] to assist you with your healthcare needs. The following is importantdischarge information regarding your hospital visit. Diagnosis from Today's Visit Acute infection of sinus Sinus Pain/Congestion What to Do Next Instructions from Your Care Team No qualifying data available. Post Acute Orders No qualifying data available. You Need to Schedule the Following Appointments Follow Up with EDGAR RIZO MD When Within 2-4 days Where: [address] [facility] [place] [address]- Follow Up with Call Physician Referral When Within 2-4 days Allergies Vicodin codeine sulfate Medications Please ask your primary doctor or pharmacist before taking any other medication not listed, including over the counter drugs, herbal medications, vitamins and or supplements as they may interact withyour home medications. What How Much When Why Instructions Last Dose New amoxicillin (amoxicillin 875 mg oral tablet) 1 tab(s) by mouth Two (2) times a day Acute infection of sinus Duration: 14 Days Printed Prescription New fluticasone nasal (Flonase 50 mcg/ inh nasal spray) 1 spray(s) each nostril Two (2) times a day Acute infection of sinus Duration: 7 Days Printed Prescription New guaifenesin-pseudoephedrine (Mucinex D Max Strength 120 mg-1200 mg oral tablet, extended release) 1 tab(s) by mouth Every 12 hours Acute infection of sinus Duration: 10 Days Printed Prescription New predniSONE (predniSONE 10 mg oral tablet) 4 tab(s) by mouth Once a day Acute infection of sinus Duration: 5 Days Printed Prescription Changed albuterol (albuterol MDI (90 mcg/ inh) CFC free inhalation aerosol) 2 puff(s) by inhalation Every 6 hours as needed for as needed for wheezing Nausea Changed albuterol (albuterol MDI (90 mcg/ inh) CFC free inhalation aerosol) 2 puff(s) by inhalation Four (4) times a day Acute infection of sinus Printed Prescription Changed albuterol (ProAir HFA MDI (90 mcg/ inh) inhalation aerosol) 2 puff(s) by inhalation Four (4) times a day as needed for as needed for wheezing Unchanged DME (DME MISCellaneous) TENS UNIT Chronic neck pain SA CASE TENS UNIT E0730 REDUCING CHRONIC INTRACTABLE PAIN, 4 LEAD FOR MULTIPLE SITES; tens unit EO730, reducing chronic intractable pain, 4 lead for multiple pain sites. Certificate of medical necessity, the above identified equipment is deemed medically necessary for an estimated period of time -one month rental with option to purchase. Treatment instructions, tens unit: rate 80 width 80 alternating C for 2 hours, M for 1 hour. Wearing time: 8-10 hour TENS supplies as needed. Unchanged famotidine (famotidine 40 mg oral tablet) 1 tab(s) by mouth Daily at bedtime for reflux Unchanged gabapentin (Neurontin 600 mg oral tablet) 1 tab(s) by mouth Three (3) times a day Lumbosacral radiculopathy Duration: 30 Days Unchanged hydrOXYzine (hydrOXYzine pamoate 25 mg oral capsule) Unchanged ibuprofen (ibuprofen 800 mg oral tablet) 1 tab(s) by mouth Every 12 hours as needed for as needed for pain DDD (degenerative disc disease), lumbar Unchanged lamoTRIgine (lamoTRIgine 200 mg oral tablet) 1 tab(s) by mouth Two (2) times a day Unchanged medroxyPROGESTERone (Depo-Provera Contraceptive 150 mg/ mL intramuscular suspension) 1 Milliliter Intramuscular Every 3 months Unchanged multivitamin (B-Plex (Vitamin B Complex) oral tablet) 1 tab(s) by mouth Every day okay to change to brand covered by insurance. Unchanged multivitamin (Multivitamin) 1 tab(s) by mouth Every day Unchanged ondansetron (ondansetron 4 mg oral tablet) 1 tab(s) by mouth Every 6 hours as needed for Nausea/Vomiting Nausea Unchanged tiZANidine (tiZANidine 4 mg oral tablet) 1 tab(s) by mouth Every 8 hours Unchanged zolpidem (zolpidem 10 mg oral tablet) 1 tab(s) by mouth Daily at bedtime Please take this list to your next doctor s visit. Bring all medications you take, including over the counter medications, herbals and other supplements with you to your doctor s visit. Patients and families are reminded to discard old lists and to update any records with all medication providers or retail pharmacies. Education Materials Health Effects of Smoking Health studies have shown that smoking can affect your heart as well as your lungs. Smoking also raises your risk of certain cancers. These are all good reasons to quit. How smoking affects your body Smoking has been linked with many serious illnesses. It also has been shown to increase signs of aging. A few of the health effects of smoking are listed below. Smoking can: Raise your risk of lung cancer, bladder cancer, and cervical cancer Harm your lungs and cause problems with breathing. This includes emphysema and COPD (chronic obstructive pulmonary disease) . Raise blood pressure. This raises your risk for heart attack or stroke. Reduce blood flow. This can slow healing and cause wrinkles. In women, cause bleeding problems, miscarriage, stillbirth, or defects In men, cause problems with erections What happens when you smoke? When you smoke, your breathing becomes shallow. Your lungs fill with smoke. Smoking cigarettes alsofills your body with chemicals, such as nicotine and tar. Here s how these things affect your body: Smoke. Cigarette smoke contains carbon monoxide. This gas takes the place of oxygen in your blood. Nicotine. This drug raises your blood pressure and heart rate. It reduces blood flow to your arms and legs. And it slows digestion. Tar. Tar is what s left after tobacco is smoked. This sticky brown material gums up your lungs. This causes less oxygen to get into your bloodstream. Other chemicals. Cigarette smoke contains more than 4,000 other chemicals. They include formaldehyde, arsenic, and lead. Dozens of these chemicals are known to cause cancer. Get help and more information Smokefree.gov. Go to smokefree.gov or call 322-FDRI-GYX (754-915-1268). National Cancer Smilax Smoking Quitline. Go to THEVA/naa-pidm-hpp or call 869-46C-VKIH(193-017-8792). 4089-0048 [employer]. [address] [place] [address]. All rights reserved. This information is not intended as a substitute for professional medical care. Always follow yourhealthcare professional's instructions. Acute Sinusitis Acute sinusitis is irritation and swelling of the sinuses. It is usually caused by a viral infection after a common cold. Your doctor can help you find relief. What is acute sinusitis? Sinuses are air-filled spaces in the skull behind the face. They are kept moist and clean by a lining of mucosa. Things such as pollen, smoke, and chemical fumes can irritate the mucosa. It can then swell up. As a response to irritation, the mucosa makes more mucus and other fluids. Tiny hairlike cilia cover the mucosa. Cilia help carry mucus toward the opening of the sinus. Too much mucus may cause the cilia to stop working. This blocks the sinus opening. A buildup of fluid in the sinuses thencauses pain and pressure. It can also encourage bacteria to grow in the sinuses. Common symptoms of acute sinusitis You may have: Facial soreness pain Headache Fever Fluid draining in the back of the throat (postnasal drip) Congestion Drainage that is thick and colored, instead of clear Cough Diagnosing acute sinusitis Your doctor will ask about your symptoms and health history. He or she will look at your ear, nose,and throat. You usually won't need to have X-rays taken. The doctor may take a sample of mucus to check for bacteria. If you have sinusitis that keeps coming back, you may need imaging tests such as X-rays or CAT scans. This will help your doctor check fora structural problem that may be causing the infection. Treating acute sinusitis Treatment is aimed at unblocking the sinus opening and helping the cilia work again. You may need to take antihistamine and decongestant medicine. These can reduce inflammation and decrease the amount of fluid your sinuses make. If you have a bacterial infection, you will need to take antibiotic medicine for 10 to 14 days. Take this medicine until it is gone, even if you feel better. 8326-0929 [employer]. [address] [place] [address]. All rights reserved. This information is not intended as a substitute for professional medical care. Always follow yourhealthcare professional's instructions. Additional Information VACCINATE! IT SAVES LIVES! Members of the community who have not yet received the COVID-19 vaccine and would like to receive it can visit one of [facility] vaccine clinics. There are many vaccine clinic locations within the [facility]. For locations and available times, please visit [email or web address]. It is important to note that some COVID mobile vaccine clinics are held outdoors and may be canceled in rainy orstormy conditions. To learn more about pediatric vaccinations (ages 5-11), we invite you to visit the [facility] webpage. [email or web address] [email or web address] learn more about the COVID-19 vaccine, we invite you to visit the [employer] website for a list of frequently asked questions. [email or web address].pdf [facility] Patient Portal Access Instructions: Stay connected with your healthcare team and access your personal medical information anytime with the [facility] Patient Portal. If you would like a full copy of your medical records please contact the [facility] Medical Records Department Monday through Monday between 8a.m. and 4:30p.m. Please follow the directions below to access the portal: 1.Access the email account you provided upon registration to the hospital.2.Look for an invitation email from [facility].3.Open the email and access the invitation link: Accept Invitation to [facility] [employer]4.Fill in the required ellis to create your account. Sign into [email or web address] with your username and password that you created in the above steps to stay up to date. You can then view a summary of results, a summary of your visits, and the ability to download your summaries to your computer or send the information securely to a physician. Remember that your healthcare information is confidential, so carefully consider who you will allow to register on the [facility] Patient Portal for access to your information. You can also access the [employer] [employer] Patient Portal on the St[employer]. Simply click on Health Records under [employer] and then click on the [facility] logo. HOW TO SAFELY DISPOSE OF PRESCRIPTION MEDICATIONS Please use one of the following methods to safely dispose of your unused medications. 1.Use a drug disposal kit: the drug disposal pouch allows you to safely discard your old and unuseddrugs. Ask your nurse to give you one when you are discharged.2.Visit a local take-back location: Many local pharmacies and police departments have programs that collect old and unwanted prescriptiondrugs. Call your local pharmacy or go to http://[employer][email or web address]/2O5Gd6e to find one close to you.3.Make use of household items: Use cat litter or old coffee grounds to dispose medications if other options arenot available. Mix your drugs with these household products, seal them in an airtight container andthrow it into the garbage. Call [facility]: [phone] to be sure your drugs can be disposed of in this way. Some medicines may require a different approach.4.Never flush your medications down the toilet. IF YOU HAVE BEEN PRESCRIBED AN OPIOIDS FOR PAIN If you have been prescribed an opioid (such as hydrocodone, oxycodone or morphine), it is critical to understand the possible side effects and risks of opioid pain medications. Even when taken as directed, opioids can have several side effects including: Tolerance, meaning you might need to take more of a medication for the same pain relief. Nausea, vomiting and/or constipation. Sleepiness, dizziness, dry mouth, confusion, depression or itching. Physical dependence, meaning you have withdrawal symptoms when a medication is stopped ? this can develop within a few days. KNOW YOUR RESPONSIBILITIES It is important to know exactly how much and how often to take the opioid pain medications you are prescribed. Never take opioids in higher amounts or more often than prescribed. Do not combine opioids with alcohol or other drugs that cause drowsiness, such as benzodiazepines, also known as benzos,including diazepam and alprazolam, muscle relaxants or sleep aids. Never sell or share prescriptionopioids. This is illegal. Store opioids in a secure place and out of reach of others (including children, family, friends and visitors). The last page(s) of this document has been signed and retained as a CHART COPY Signatures Patient Education Materials Health Effects of Smoking Acute Sinusitis Medication Leaflets My discharge plan and instructions have been reviewed and explained to me and IOMAR BRITTNEY M understand my current condition and have read and understand these discharge instructions. I have received a written copy of the plan/instructions. If I have questions, I am aware that I should contact my doctor. 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 Common viruses causing gastroenteritis include norovirus, rotavirus, and hepatitisA. Non-viral causes of gastroenteritis include bacteria, parasites, and toxins. The danger from repeated vomiting or diarrhea is dehydration. This is the loss of too much fluid from the body. When this occurs, body fluids must be replaced. Antibiotics don't help with this illness because it is usually viral. Simple home treatment will be helpful. Symptoms of viral gastroenteritis may include: Watery, loose stools Stomach pain or abdominal cramps Fever and chills Nausea and vomiting Loss of bowel control Headache Home care Gastroenteritis is transmitted by contact with the stool or vomit of an infected person. This can occur from person to person or from contact with a contaminated surface. Follow these guidelines when caring for yourself at home: If symptoms are severe, rest at home for the next 24 hours or until you are feeling better. Wash your hands with soap and water or use alcohol-based stacking machine operator to prevent the spread of infection. Wash your hands after touching anyone who is sick. Wash your hands or use alcohol-based stacking machine operator after using the toilet and before meals. Clean the toilet after each use. Remember these tips when preparing food: People with diarrhea should not prepare or serve food to others. When preparing foods, wash your hands before and after. Wash your hands after using cutting boards, countertops, knives, or utensils that have been in contact with raw food. Dry your hands with a single use towel. Keep uncooked meats away from cooked and [id number]-[id number] foods. Medicine You may use acetaminophen or NSAID medicines like ibuprofen or naproxen to control fever unless another medicine was given. If you have chronic liver or kidney disease, talk with your healthcare provider before using these medicines. Also talk with your provider if you've had a stomach ulcer or gastrointestinal bleeding. Don't give aspirin to anyone under 18 years of age who is ill with a fever. It may cause severe liver damage. Don't use NSAIDS is you are already taking one for another condition (like arthritis) or are on aspirin (such as for heart disease or after a stroke). If medicine for vomiting or diarrhea are prescribed, take these only as directed. Nausea and diarrhea medicines are generally OK unless you have bleeding, fever, or severe abdominal pain. Diet Follow these guidelines for food: Water and liquids are important so you don't get dehydrated. Drink a small amount at a time or suckon ice chips if you are vomiting. If you eat, avoid fatty, greasy, spicy, or fried foods. Don't eat dairy if you have diarrhea. This can make diarrhea worse. Avoid tobacco, alcohol, and caffeine which may worsen symptoms. During the first 24 hours (the first full day), follow the diet below: Beverages. Sports drinks, soft drinks without caffeine, cyndy burak, mineral water (plain or flavored), decaffeinated tea and coffee. If you are very dehydrated, sports drinks aren't a good choice. They have too much sugar and not enough electrolytes. In this case, commercially available products called oral rehydration solutions, are best. Soups. Eat clear broth, consomm , and bouillon. Desserts. Eat gelatin, ice pops, and fruit juice bars. During the next 24 hours (the second day), you may add the following to the above: Hot cereal, plain toast, bread, rolls, and crackers Plain noodles, rice, mashed potatoes, chicken noodle or rice soup Unsweetened canned fruit (avoid pineapple), bananas Limit fat intake to less than 15 grams per day. Do this by avoiding margarine, butter, oils, mayonnaise, sauces, gravies, fried foods, peanut butter, meat, poultry, and fish. Limit fiber and avoid raw or cooked vegetables, fresh fruits (except bananas), and bran cereals. Limit caffeine and chocolate. Don't use spices or seasonings other than salt. Limit dairy products. Avoid alcohol. During the next 24 hours: Gradually resume a normal diet as you feel better and your symptoms improve. If at any time it starts getting worse again, go back to clear liquids until you feel better. Follow-up care Follow up with your healthcare provider, or as advised. Call your provider if you don't get better within 24 hours or if diarrhea lasts more than a week. Also follow up if you are unable to keep downliquids and get dehydrated. If a stool (diarrhea) sample was taken, call as directed for the results. Call 911 Call 911 if any of these occur: Trouble breathing Chest pain Confused Severe drowsiness or trouble awakening Fainting or loss of consciousness Rapid heart rate Seizure Stiff neck When to seek medical advice Call your healthcare provider right away if any of these occur: Abdominal pain that gets worse Continued vomiting (unable to keep liquids down) Frequent diarrhea (more than 5 times a day) Blood in vomit or stool (black or red color) Dark urine, reduced urine output, or extreme thirst Weakness or dizziness Drowsiness Fever of 100.4 F (38 C) or higher, or as directed by your healthcare provider Min dietz [id number] [employer]. [address] [place] [address] [id number]. All rights reserved. This information is not intended as a substitute for professional medical care. Always follow yourhealthcare professional's instructions. Follow Up Care 12/30/2021 00:34:03 With:Follow up with primary care provider Address:Unknown When:2-4 days [facility] 07-28-2022 Note Discharge Instructions Thank you for allowing [facility] to assist you with your healthcare needs. The following is importantdischarge information regarding your hospital visit. Diagnosis from Today's Visit Nausea Vomiting What to Do Next Instructions from Your Care Team No qualifying data available. Post Acute Orders No qualifying data available. You Need to Schedule the Following Appointments Follow Up with Follow up with primary care provider When Within 2-4 days Allergies Vicodin codeine sulfate Medications Please ask your primary doctor or pharmacist before taking any other medication not listed, including over the counter drugs, herbal medications, vitamins and or supplements as they may interact withur home medications. What How Much When Why Instructions Last Dose Changed albuterol (albuterol MDI (90 mcg/ inh) CFC free inhalation aerosol) 2 puff(s) by inhalation Every 6 hours as needed for as needed for wheezing Nausea Printed Prescription Changed albuterol (ProAir HFA MDI (90 mcg/ inh) inhalation aerosol) 2 puff(s) by inhalation Four (4) times a day as needed for as needed for wheezing Changed ondansetron (ondansetron 4 mg oral tablet) 1 tab(s) by mouth Every 8 hours as needed for Nausea/Vomiting Nausea Duration: 5 Days Printed Prescription Changed ondansetron (ondansetron 4 mg oral tablet) 1 tab(s) by mouth Every 6 hours as needed for Nausea/Vomiting Nausea Unchanged DME (DME MISCellaneous) TENS UNIT Chronic neck pain SA CASE TENS UNIT E0730 REDUCING CHRONIC INTRACTABLE PAIN, 4 LEAD FOR MULTIPLE SITES; tens unit EO730, reducing chronic intractable pain, 4 lead for multiple pain sites. Certificate of medical necessity, the above identified equipment is deemed medically necessary for an estimated period of time -one month rental with option to purchase. Treatment instructions, tens unit: rate 80 width 80 alternating C for 2 hours, M for 1 hour. Wearing time: 8-10 hour TENS supplies as needed. Unchanged famotidine (famotidine 40 mg oral tablet) 1 tab(s) by mouth Daily at bedtime for reflux Unchanged gabapentin (Neurontin 600 mg oral tablet) 1 tab(s) by mouth Three (3) times a day Lumbosacral radiculopathy Duration: 30 Days Unchanged hydrOXYzine (hydrOXYzine pamoate 25 mg oral capsule) Unchanged ibuprofen (ibuprofen 800 mg oral tablet) 1 tab(s) by mouth Every 12 hours as needed for as needed for pain DDD (degenerative disc disease), lumbar Unchanged lamoTRIgine (lamoTRIgine 200 mg oral tablet) 1 tab(s) by mouth Two (2) times a day Unchanged medroxyPROGESTERone (Depo-Provera Contraceptive 150 mg/ mL intramuscular suspension) 1 Milliliter Intramuscular Every 3 months Unchanged multivitamin (B-Plex (Vitamin B Complex) oral tablet) 1 tab(s) by mouth Every day okay to change to brand covered by insurance. Unchanged multivitamin (Multivitamin) 1 tab(s) by mouth Every day Unchanged tiZANidine (tiZANidine 4 mg oral tablet) 1 tab(s) by mouth Every 8 hours Unchanged zolpidem (zolpidem 10 mg oral tablet) 1 tab(s) by mouth Daily at bedtime Please take this list to your next doctor s visit. Bring all medications you take, including over the counter medications, herbals and other supplements with you to your doctor s visit. Patients and families are reminded to discard old lists and to update any records with all medication providers or retail pharmacies. Education Materials Viral Gastroenteritis (Adult) Gastroenteritis is commonly called the stomach flu, although it has nothing to do with influenza.It is most often caused by a virus that affects the stomach and intestinal tract and usually lasts from 2 to 7 days. Common viruses causing gastroenteritis include norovirus, rotavirus, and hepatitisA. Non-viral causes of gastroenteritis include bacteria, parasites, and toxins. The danger from repeated vomiting or diarrhea is dehydration. This is the loss of too much fluid from the body. When this occurs, body fluids must be replaced. Antibiotics don't help with this illness because it is usually viral. Simple home treatment will be helpful. Symptoms of viral gastroenteritis may include: Watery, loose stools Stomach pain or abdominal cramps Fever and chills Nausea and vomiting Loss of bowel control Headache Home care Gastroenteritis is transmitted by contact with the stool or vomit of an infected person. This can occur from person to person or from contact with a contaminated surface. Follow these guidelines when caring for yourself at home: If symptoms are severe, rest at home for the next 24 hours or until you are feeling better. Wash your hands with soap and water or use alcohol-based stacking machine operator to prevent the spread of infection. Wash your hands after touching anyone who is sick. Wash your hands or use alcohol-based stacking machine operator after using the toilet and before meals. Clean the toilet after each use. Remember these tips when preparing food: People with diarrhea should not prepare or serve food to others. When preparing foods, wash your hands before and after. Wash your hands after using cutting boards, countertops, knives, or utensils that have been in contact with raw food. Dry your hands with a single use towel. Keep uncooked meats away from cooked and ritcf-or-jyq foods. Medicine You may use acetaminophen or NSAID medicines like ibuprofen or naproxen to control fever unless another medicine was given. If you have chronic liver or kidney disease, talk with your healthcare provider before using these medicines. Also talk with your provider if you've had a stomach ulcer or gastrointestinal bleeding. Don't give aspirin to anyone under 18 years of age who is ill with a fever. It may cause severe liver damage. Don't use NSAIDS is you are already taking one for another condition (like arthritis) or are on aspirin (such as for heart disease or after a stroke). If medicine for vomiting or diarrhea are prescribed, take these only as directed. Nausea and diarrhea medicines are generally OK unless you have bleeding, fever, or severe abdominal pain. Diet Follow these guidelines for food: Water and liquids are important so you don't get dehydrated. Drink a small amount at a time or suckon ice chips if you are vomiting. If you eat, avoid fatty, greasy, spicy, or fried foods. Don't eat dairy if you have diarrhea. This can make diarrhea worse. Avoid tobacco, alcohol, and caffeine which may worsen symptoms. During the first 24 hours (the first full day), follow the diet below: Beverages. Sports drinks, soft drinks without caffeine, cyndy burak, mineral water (plain or flavored), decaffeinated tea and coffee. If you are very dehydrated, sports drinks aren't a good choice. They have too much sugar and not enough electrolytes. In this case, commercially available products called oral rehydration solutions, are best. Soups. Eat clear broth, consomm , and bouillon. Desserts. Eat gelatin, ice pops, and fruit juice bars. During the next 24 hours (the second day), you may add the following to the above: Hot cereal, plain toast, bread, rolls, and crackers Plain noodles, rice, mashed potatoes, chicken noodle or rice soup Unsweetened canned fruit (avoid pineapple), bananas Limit fat intake to less than 15 grams per day. Do this by avoiding margarine, butter, oils, mayonnaise, sauces, gravies, fried foods, peanut butter, meat, poultry, and fish. Limit fiber and avoid raw or cooked vegetables, fresh fruits (except bananas), and bran cereals. Limit caffeine and chocolate. Don't use spices or seasonings other than salt. Limit dairy products. Avoid alcohol. During the next 24 hours: Gradually resume a normal diet as you feel better and your symptoms improve. If at any time it starts getting worse again, go back to clear liquids until you feel better. Follow-up care Follow up with your healthcare provider, or as advised. Call your provider if you don't get better within 24 hours or if diarrhea lasts more than a week. Also follow up if you are unable to keep downliquids and get dehydrated. If a stool (diarrhea) sample was taken, call as directed for the results. Call 911 Call 911 if any of these occur: Trouble breathing Chest pain Confused Severe drowsiness or trouble awakening Fainting or loss of consciousness Rapid heart rate Seizure Stiff neck When to seek medical advice Call your healthcare provider right away if any of these occur: Abdominal pain that gets worse Continued vomiting (unable to keep liquids down) Frequent diarrhea (more than 5 times a day) Blood in vomit or stool (black or red color) Dark urine, reduced urine output, or extreme thirst Weakness or dizziness Drowsiness Fever of 100.4 F (38 C) or higher, or as directed by your healthcare provider Min dietz [id number] [employer]. [address] [place] [address]27. All rights reserved. This information is not intended as a substitute for professional medical care. Always follow yourhealthcare professional's instructions. Additional Information VACCINATE! IT SAVES LIVES! Members of the community who have not yet received the COVID-19 vaccine and would like to receive it can visit one of [facility] vaccine clinics. There are many vaccine clinic locations within the [facility]. For locations and available times, please visit [email or web address]. It is important to note that some COVID mobile vaccine clinics are held outdoors and may be canceled in rainy orstormy conditions. To learn more about pediatric vaccinations (ages 5-11), we invite you to visit the [facility] webpage. [email or web address] learn more about the COVID-19 vaccine, we invite you to visit the [facility] website for a list of frequently asked questions. [email or web address] [facility] Access Instructions: Stay connected with your healthcare team and access your personal medical information anytime with the [facility] Patient Portal. If you would like a full copy of your medical records please contact the [facility] Medical Records Department Monday through Monday between 8a.m. and 4:30p.m. Please follow the directions below to access the portal: 1.Access the email account you provided upon registration to the [facility].2.Look for an invitation email from [facility].3.Open the email and access the invitation link: Accept Invitation to [facility]4.Fill in the required ellis to create your account. Sign into [email or web address] with your username and password that you created in the above steps to stay up to date. You can then view a summary of results, a summary of your visits, and the ability to download your summaries to your computer or send the information securely to a physician. Remember that your healthcare information is confidential, so carefully consider who you will allow to register on the [facility] Patient Portal for access to your information. You can also access the [facility] Patient Portal on the [employer]. Simply click on Health Records under [employer] and then click on the [employer] logo. HOW TO SAFELY DISPOSE OF PRESCRIPTION MEDICATIONS Please use one of the following methods to safely dispose of your unused medications. 1.Use a drug disposal kit: the drug disposal pouch allows you to safely discard your old and unuseddrugs. Ask your nurse to give you one when you are discharged.2.Visit a local take-back location: Many local pharmacies and police departments have programs that collect old and unwanted prescriptiondrugs. Call your local pharmacy or go to http://[employer]Boostable/5D5Wt9f to find one close to you.3.Make use of household items: Use cat litter or old coffee grounds to dispose medications if other options arenot available. Mix your drugs with these household products, seal them in an airtight container andthrow it into the garbage. Call [facility]: [phone] to be sure your drugs can be disposed of in this way. Some medicines may require a different approach.4.Never flush your medications down the toilet. IF YOU HAVE BEEN PRESCRIBED AN OPIOIDS FOR PAIN If you have been prescribed an opioid (such as hydrocodone, oxycodone or morphine), it is critical to understand the possible side effects and risks of opioid pain medications. Even when taken as directed, opioids can have several side effects including: Tolerance, meaning you might need to take more of a medication for the same pain relief. Nausea, vomiting and/or constipation. Sleepiness, dizziness, dry mouth, confusion, depression or itching. Physical dependence, meaning you have withdrawal symptoms when a medication is stopped ? this can develop within a few days. KNOW YOUR RESPONSIBILITIES It is important to know exactly how much and how often to take the opioid pain medications you are prescribed. Never take opioids in higher amounts or more often than prescribed. Do not combine opioids with alcohol or other drugs that cause drowsiness, such as benzodiazepines, also known as benzos,including diazepam and alprazolam, muscle relaxants or sleep aids. Never sell or share prescriptionopioids. This is illegal. Store opioids in a secure place and out of reach of others (including children, family, friends and visitors). The last page(s) of this document has been signed and retained as a CHART COPY Signatures Patient Education Materials Gastroenteritis, Viral (Adult) Medication Leaflets My discharge plan and instructions have been reviewed and explained to me and I,POLINA GIRON M understand my current condition and have read and understand these discharge instructions. I have received a written copy of the plan/instructions. If I have questions, I am aware that I should contact my doctor. 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 The following is importantdischarge information regarding your hospital visit. Diagnosis from Today's Visit Nausea Vomiting What to Do Next Instructions from Your Care Team No qualifying data available. Post Acute Orders No qualifying data available. You Need to Schedule the Following Appointments Follow Up with Follow up with primary care provider When Within 2-4 days Allergies Vicodin codeine sulfate Medications Please ask your primary doctor or pharmacist before taking any other medication not listed, including over the counter drugs, herbal medications, vitamins and or supplements as they may interact withyour home medications. What How Much When Why Instructions Last Dose Changed albuterol (albuterol MDI (90 mcg/ inh) CFC free inhalation aerosol) 2 puff(s) by inhalation Every 6 hours as needed for as needed for wheezing Nausea Printed Prescription Changed albuterol (ProAir HFA MDI (90 mcg/ inh) inhalation aerosol) 2 puff(s) by inhalation Four (4) times a day as needed for as needed for wheezing Changed ondansetron (ondansetron 4 mg oral tablet) 1 tab(s) by mouth Every 8 hours as needed for Nausea/Vomiting Nausea Duration: 5 Days Printed Prescription Changed ondansetron (ondansetron 4 mg oral tablet) 1 tab(s) by mouth Every 6 hours as needed for Nausea/Vomiting Nausea Unchanged DME (DME MISCellaneous) TENS UNIT Chronic neck pain SA CASE TENS UNIT E0730 REDUCING CHRONIC INTRACTABLE PAIN, 4 LEAD FOR MULTIPLE SITES; tens unit EO730, reducing chronic intractable pain, 4 lead for multiple pain sites. Certificate of medical necessity, the above identified equipment is deemed medically necessary for an estimated period of time -one month rental with option to purchase. Treatment instructions, tens unit: rate 80 width 80 alternating C for 2 hours, M for 1 hour. Wearing time: 8-10 hour TENS supplies as needed. Unchanged famotidine (famotidine 40 mg oral tablet) 1 tab(s) by mouth Daily at bedtime for reflux Unchanged gabapentin (Neurontin 600 mg oral tablet) 1 tab(s) by mouth Three (3) times a day Lumbosacral radiculopathy Duration: 30 Days Unchanged hydrOXYzine (hydrOXYzine pamoate 25 mg oral capsule) Unchanged ibuprofen (ibuprofen 800 mg oral tablet) 1 tab(s) by mouth Every 12 hours as needed for as needed for pain DDD (degenerative disc disease), lumbar Unchanged lamoTRIgine (lamoTRIgine 200 mg oral tablet) 1 tab(s) by mouth Two (2) times a day Unchanged medroxyPROGESTERone (Depo-Provera Contraceptive 150 mg/ mL intramuscular suspension) 1 Milliliter Intramuscular Every 3 months Unchanged multivitamin (B-Plex (Vitamin B Complex) oral tablet) 1 tab(s) by mouth Every day okay to change to brand covered by insurance. Unchanged multivitamin (Multivitamin) 1 tab(s) by mouth Every day Unchanged tiZANidine (tiZANidine 4 mg oral tablet) 1 tab(s) by mouth Every 8 hours Unchanged zolpidem (zolpidem 10 mg oral tablet) 1 tab(s) by mouth Daily at bedtime Please take this list to your next doctor s visit. Bring all medications you take, including over the counter medications, herbals and other supplements with you to your doctor s visit. Patients and families are reminded to discard old lists and to update any records with all medication providers or retail pharmacies. Education Materials Viral Gastroenteritis (Adult) Gastroenteritis is commonly called the stomach flu, although it has nothing to do with influenza.It is most often caused by a virus that affects the stomach and intestinal tract and usually lasts from 2 to 7 days. Common viruses causing gastroenteritis include norovirus, rotavirus, and hepatitisA. Non-viral causes of gastroenteritis include bacteria, parasites, and toxins. The danger from repeated vomiting or diarrhea is dehydration. This is the loss of too much fluid from the body. When this occurs, body fluids must be replaced. Antibiotics don't help with this illness because it is usually viral. Simple home treatment will be helpful. Symptoms of viral gastroenteritis may include: Watery, loose stools Stomach pain or abdominal cramps Fever and chills Nausea and vomiting Loss of bowel control Headache Home care Gastroenteritis is transmitted by contact with the stool or vomit of an infected person. This can occur from person to person or from contact with a contaminated surface. Follow these guidelines when caring for yourself at home: If symptoms are severe, rest at home for the next 24 hours or until you are feeling better. Wash your hands with soap and water or use alcohol-based stacking machine operator to prevent the spread of infection. Wash your hands after touching anyone who is sick. Wash your hands or use alcohol-based stacking machine operator after using the toilet and before meals. Clean the toilet after each use. Remember these tips when preparing food: People with diarrhea should not prepare or serve food to others. When preparing foods, wash your hands before and after. Wash your hands after using cutting boards, countertops, knives, or utensils that have been in contact with raw food. Dry your hands with a single use towel. Keep uncooked meats away from cooked and tjqgz-ex-qxw foods. Medicine You may use acetaminophen or NSAID medicines like ibuprofen or naproxen to control fever unless another medicine was given. If you have chronic liver or kidney disease, talk with your healthcare provider before using these medicines. Also talk with your provider if you've had a stomach ulcer or gastrointestinal bleeding. Don't give aspirin to anyone under 18 years of age who is ill with a fever. It may cause severe liver damage. Don't use NSAIDS is you are already taking one for another condition (like arthritis) or are on aspirin (such as for heart disease or after a stroke). If medicine for vomiting or diarrhea are prescribed, take these only as directed. Nausea and diarrhea medicines are generally OK unless you have bleeding, fever, or severe abdominal pain. Diet Follow these guidelines for food: Water and liquids are important so you don't get dehydrated. Drink a small amount at a time or suckon ice chips if you are vomiting. If you eat, avoid fatty, greasy, spicy, or fried foods. Don't eat dairy if you have diarrhea. This can make diarrhea worse. Avoid tobacco, alcohol, and caffeine which may worsen symptoms. During the first 24 hours (the first full day), follow the diet below: Beverages. Sports drinks, soft drinks without caffeine, cyndy burak, mineral water (plain or flavored), decaffeinated tea and coffee. If you are very dehydrated, sports drinks aren't a good choice. They have too much sugar and not enough electrolytes. In this case, commercially available products called oral rehydration solutions, are best. Soups. Eat clear broth, consomm , and bouillon. Desserts. Eat gelatin, ice pops, and fruit juice bars. During the next 24 hours (the second day), you may add the following to the above: Hot cereal, plain toast, bread, rolls, and crackers Plain noodles, rice, mashed potatoes, chicken noodle or rice soup Unsweetened canned fruit (avoid pineapple), bananas Limit fat intake to less than 15 grams per day. Do this by avoiding margarine, butter, oils, mayonnaise, sauces, gravies, fried foods, peanut butter, meat, poultry, and fish. Limit fiber and avoid raw or cooked vegetables, fresh fruits (except bananas), and bran cereals. Limit caffeine and chocolate. Don't use spices or seasonings other than salt. Limit dairy products. Avoid alcohol. During the next 24 hours: Gradually resume a normal diet as you feel better and your symptoms improve. If at any time it starts getting worse again, go back to clear liquids until you feel better. Follow-up care Follow up with your healthcare provider, or as advised. Call your provider if you don't get better within 24 hours or if diarrhea lasts more than a week. Also follow up if you are unable to keep downliquids and get dehydrated. If a stool (diarrhea) sample was taken, call as directed for the results. Call 911 Call 911 if any of these occur: Trouble breathing Chest pain Confused Severe drowsiness or trouble awakening Fainting or loss of consciousness Rapid heart rate Seizure Stiff neck When to seek medical advice Call your healthcare provider right away if any of these occur: Abdominal pain that gets worse Continued vomiting (unable to keep liquids down) Frequent diarrhea (more than 5 times a day) Blood in vomit or stool (black or red color) Dark urine, reduced urine output, or extreme thirst Weakness or dizziness Drowsiness Fever of 100.4 F (38 C) or higher, or as directed by your healthcare provider Min dietz [id number] [employer]. [address] [place] [address]. All rights reserved. This information is not intended as a substitute for professional medical care. Always follow yourhealthcare professional's instructions. Additional Information VACCINATE! IT SAVES LIVES! Members of the community who have not yet received the COVID-19 vaccine and would like to receive it can visit one of [facility] vaccine clinics. There are many vaccine clinic locations within the [facility]. For locations and available times, please visit [email or web address]. It is important to note that some COVID mobile vaccine clinics are held outdoors and may be canceled in rainy orstormy conditions. To learn more about pediatric vaccinations (ages 5-11), we invite you to visit the [facility] webpage. [email or web address] learn more about the COVID-19 vaccine, we invite you to visit the [employer] website for a list of frequently asked questions. [email or web address] [facility] Access Instructions: Stay connected with your healthcare team and access your personal medical information anytime with the [employer] Patient Portal. If you would like a full copy of your medical records please contact the [facility] Medical Records Department Monday through Monday between 8a.m. and 4:30p.m. Please follow the directions below to access the portal: 1.Access the email account you provided upon registration to the [facility].2.Look for an invitation email from [facility].3.Open the email and access the invitation link: Accept [facility] to [facility]4.Fill in the required ellis to create your account. Sign into [email or web address] with your username and password that you created in the above steps to stay up to date. You can then view a summary of results, a summary of your visits, and the ability to download your summaries to your computer or send the information securely to a physician. Remember that your healthcare information is confidential, so carefully consider who you will allow to register on the [facility] [employer] Patient Portal for access to your information. You can also access the [employer] Patient Portal on the [employer] asher. Simply click on Health Records under [employer] and then click on the [employer] logo. HOW TO SAFELY DISPOSE OF PRESCRIPTION MEDICATIONS Please use one of the following methods to safely dispose of your unused medications. 1.Use a drug disposal kit: the drug disposal pouch allows you to safely discard your old and unuseddrugs. Ask your nurse to give you one when you are discharged.2.Visit a local take-back location: Many local pharmacies and police departments have programs that collect old and unwanted prescriptiondrugs. Call your local pharmacy or go to http://bit.Boostable/6O8Ok1y to find one close to you.3.Make use of household items: Use cat litter or old coffee grounds to dispose medications if other options arenot available. Mix your drugs with these household products, seal them in an airtight container andthrow it into the garbage. Call [facility]: [phone] to be sure your drugs can be disposed of in this way. Some medicines may require a different approach.4.Never flush your medications down the toilet. IF YOU HAVE BEEN PRESCRIBED AN OPIOIDS FOR PAIN If you have been prescribed an opioid (such as hydrocodone, oxycodone or morphine), it is critical to understand the possible side effects and risks of opioid pain medications. Even when taken as directed, opioids can have several side effects including: Tolerance, meaning you might need to take more of a medication for the same pain relief. Nausea, vomiting and/or constipation. Sleepiness, dizziness, dry mouth, confusion, depression or itching. Physical dependence, meaning you have withdrawal symptoms when a medication is stopped ? this can develop within a few days. KNOW YOUR RESPONSIBILITIES It is important to know exactly how much and how often to take the opioid pain medications you are prescribed. Never take opioids in higher amounts or more often than prescribed. Do not combine opioids with alcohol or other drugs that cause drowsiness, such as benzodiazepines, also known as benzos,including diazepam and alprazolam, muscle relaxants or sleep aids. Never sell or share prescriptionopioids. This is illegal. Store opioids in a secure place and out of reach of others (including children, family, friends and visitors). The last page(s) of this document has been signed and retained as a CHART COPY Signatures Patient Education Materials Gastroenteritis, Viral (Adult) Medication Leaflets My discharge plan and instructions have been reviewed and explained to me and I,POLINA GIRON M understand my current condition and have read and understand these discharge instructions. I have received a written copy of the plan/instructions. If I have questions, I am aware that I should contact my doctor. 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 Author Type: Physician Type: Progress Notes Filed: 07/30/2020 4:34 PM Note Text: Patient presents with: swollen sore left side of neck: x 2 days HPI: Neck pain: Duration: 2 days. Location: Neck below the jaw on the left side Character: Tender, Becoming more painful Radiation: No. Aggravating: Touching eating Relieving: Tried warm compress Pain relievers: Tylenol, ibuprofen, Associated: swelling Pertinent negatives: Denies fever, tooth pain, prior similar problem. PAST MEDICAL HISTORY Diagnosis Date - Abnormal Pap smear of cervix 05/2013 [facility] - ADHD (attention deficit hyperactivity disorder) - Bipolar disorder (HCC) - Gonorrhea 04/2013 - Obesity - Old disruption of anterior cruciate ligament ACL tear - [facility] - PAST MEDICAL HISTORY OF 04/24/09 normal color vision - Ruptured lumbar disc - Tobacco use MEDICATIONS: QUEtiapine (SEROQUEL) 25 mg tablet ondansetron (ZOFRAN) 4 mg tablet Take 4 mg by mouth. gabapentin (NEURONTIN) 100 mg capsule 600 mg. twice daily albuterol HFA (PROVENTIL HFA, VENTOLIN HFA) 90 mcg/actuation inhaler inhale 2 puffs by mouth every 4 hours if needed for wheezing or shortness of breath cyclobenzaprine (FLEXERIL) 10 mg tablet Take 1 tablet by mouth three times daily as needed. lamoTRIgine (LAMICTAL) 25 mg tablet Take 100 mg by mouth once daily. sertraline (ZOLOFT) 100 mg tablet Take 150 mg by mouth. MEDROXYPROGESTERONE ACETATE (DEPO-PROVERA INTRAMUSC.) Inject intramuscularly. dicyclomine (BENTYL) 10 mg capsule ALLERGIES: ALLERGIES Allergen Reactions - Ibuprofen GI Upset - Tylenol #3 [Codeine] GI Upset - Vicodin [Hydrocodon* GI Upset VITALS: BP 102/72 Pulse 98 Temp 37 ?C (98.6 ?F) (Tympanic) Resp 18 Wt 92.8 kg (204 lb 9.6 oz) LMP 05/14/2013 BMI 33.02 kg/m? PHYSICAL EXAM: GEN: pleasant, no acute distress, alert HEENT: PERRL, EOMI, MMM, left lower teeth are non-tender. No palpable masses or purulent drainage from the submandibular duct NECK: Supple. Tender 5cm swelling medial to the left mandible, no lymphadenopathy, no thyromegaly HEART: regular rate, regular rhythm, no murmurs LUNGS: clear to auscultation, no wheezes or crackles, no increased WOB EXT: no clubbing, no cyanosis, no edema ASSESSMENT/PLAN: 1. Sialoadenitis of submandibular gland - ICD9: 527.2, ICD10: K11.20 Duct obstruction vs infection. - CONSULT TO ENT - established patient with [facility], facilitated appointment this afternoon. 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 Appointment Date:06/21/2021 10:35:00 AM Scheduled Provider:BEBA HUMPHREYS DO Location:[facility] Appointment Type: OV Future Scheduled Tests Laboratory* C-Reactive Protein 11/11/20 * Stool for Occult Blood (Lab) 07/20/20 * Thyroid Stimulating Hormone 11/11/20 * Vitamin B12 Level 11/11/20 * Complete Blood Count 07/20/20 * Lamotrigine Level 07/20/20 * Urine test (LAB) 05/01/20 * Vitamin D Level 11/11/20 * Complete Metabolic Panel 07/20/20 Radiology* XR Spine Lumbar AP/LAT 11/18/20 [facility] Evaluation note* Diagnosis Right-sided temporomandibular joint pain-dysfunction syndrome- Primary documented in this encounter [facility] Work Phone: Evaluation note* Diagnosis Intractable chronic migraine without aura and without status migrainosus- Primary Medication overuse headache Drug induced headache, not elsewhere classified documented in this encounter [facility] HealthEvaluation noteNo assessment information availableWCleveland Clinic [facility] Work Phone: Evaluation note* Diagnosis Intractable chronic migraine without aura and without status migrainosus- Primary [facility]* Diagnosis Intractable chronic migraine without aura and without status migrainosus [facility]* Diagnosis Intractable chronic migraine without aura and without status migrainosus- Primary documented in this encounter [facility]Evaluation note* Diagnosis Encounter for surveillance of injectable contraceptive documented in this encounter [facility]Evaluation note* Diagnosis Intractable chronic migraine without aura and without status migrainosus- Primary [facility]* Diagnosis Encounter for surveillance of contraceptive pills [facility]* Diagnosis Encounter for surveillance of contraceptive pills Cervical cancer screening Screening for malignant neoplasm of the cervix Well woman exam with routine gynecological exam Routine gynecological examination documented [facility]* Diagnosis Well woman exam with routine gynecological exam- Primary Routine gynecological examination Dysuria Cervical cancer screening Screening for malignant neoplasm of the cervix Vaginal itching Pruritus of genital organs Stress incontinence of urine [facility]* Diagnosis Encounter for surveillance of contraceptive pills documented [facility]* Diagnosis Intractable chronic migraine without aura and without status migrainosus- Primary documented in this encounter [facility]Evaluation note* Diagnosis Intractable chronic migraine without aura and without status migrainosus- Primary documented in this encounter [facility] HealthEvaluation note* Diagnosis Weight gain- Primary Other symptoms concerning nutrition, metabolism, and development Encounter for initial prescription of contraceptive pills [facility] Narrative No data available for this section [facility] Hospital Discharge instructions No data available for this section [facility] Hospital Discharge instructions* Attachments The following attachments cannot be sent through Care Everywhere. * TMD (Temporomandibular Disorder) ([place]) documented in this [facility] Work Phone: Hospital Discharge instructions Additional Instructions Strep negative. Throat culture pending. Wet prep negative GC chlamydia pending. Finish steroids as prescribed. Follow-up with Dr. Villarreal. You will be contacted if any cultures are positive.[facility] Work Phone: Reason for referral (narrative)No reason for referral information availableWCleveland Clinic [facility] Work Phone: Summary Purpose Family History No Family History Records Found Mother Name Dates Details Family history of Alive and well Status:Active Father Name Dates Details Family history of Alive and well Status:Active Mother Name Dates Details Family history of Alive and well Status:Active Father Name Dates Details Family history of Alive and well Status:Active Advance Directives No Advanced Directives Records Found Advance Directive Response Recorded Date/ Time Advance Directives No May 10:46am Living Will No May 22 10:23pm Power of Advertising Copywriter No May 22, 2020 10:23pm Advance Directive Response Recorded Date/ Time Advance Directives No December 20 10:27am Advance Directive Response Recorded Date/ Time Do you have a Healthcare Power of Advertising Copywriter? No October 23, 2024 1:56pm Advance Directives No December 20 10:27am Reason for Referral Specialty Diagnoses / Procedures Referred By Ariadna ramirez Referred To Contact Physical Therapy Diagnoses Stress incontinence of urine Procedures MS OFFICE/OUTPATIENT NEW [facility]IGH [facility] 60 MINUTES Valeri Kwok MD [address] [place] [address] [facility] [address] [place] [address] Referral ID Status Reason Start Date Expiration Date Visits Requested Visits Authorized [id number] Pending Review Eval and Treat 12/13/2023 12/07/2024 99 99 Specialty Diagnoses / Procedures Referred By Ariadna ramirez Referred To Contact Diagnoses Intractable chronic migraine without aura and without status migrainosus Megan Mason, CABIN EQUIPMENT SUPERVISOR - MANAGER HRIS [address] [place] [address] Referral ID Status Reason Start Date Expiration Date V isits Requested Visits Authorized [id number] Pending Review 06/21/2023 06/15/2024 1 1 Specialty Diagnoses / Procedures Referred By Contac t Referred To Contact Radiology Diagnoses Intractable chronic migraine without aura and without status migrainosus Procedures MR brain w and wo contrast Megan Mason APRN - CNP [address] [place] [address] Referral ID Status Reason Start Date Expiration Date V isits Requested Visits Authorized [id number] Authorized 05/11/2023 05/10/2024 1 1 Specialty Diagnoses / Procedures Referred By Contac t Referred To Contact Megan Mason APRN - MANAGER HRIS [address] [place] [address] Referral ID Status Reason Start Date Expiration Date V isits Requested Visits Authorized [id number] Pending Review 1 1 Chief Complaint and Reason for Visit Chief Complaint Dysphagia, pharyngea l phase Chief Complaint Dysphagia, pharyngea l phase SCIATICA Chief Complaint Admit Date Back pain with lump August 19, 2024 4:5 0pm Chief Complaint Admit Date Back pain with lump August 19, 2024 4:5 0pm THROAT PAIN October 03, 2024 4:16pm female c/o October 23, 2024 12:55 pm Chief Complaint Admit Date Back pain with lump August 19, 2024 4:5 0pm THROAT PAIN October 03, 2024 4:16pm female c/o October 23, 2024 12:55 pm Nausea October 24, 2024 10:17 am NEEDS ORDER October 24, 2024 11:36 am Reason for Visit Admit Date Abdominal pain October 24, 2024 10:17 am Diarrhea October 24, 2024 10:17 am Additional Source Comments INFORMATION SOURCE (unrecogn ized section and content) DATE CREATED AUTHOR 09/14/2018 [facility] DATE CREATED AUTHOR AUTHOR'S ORGANIZ ATION 01/14/2019 [facility] DATE CREATED AUTHOR AUTHOR'S ORGANIZ ATION 05/15/2020 [facility] DATE CREATED AUTHOR AUTHOR'S ORGANIZ ATION 12/23/2020 [facility] DATE CREATED AUTHOR AUTHOR'S ORGANIZ ATION 06/21/2021 [facility] DATE CREATED AUTHOR AUTHOR'S ORGANIZ ATION 10/14/2021 [facility] DATE CREATED AUTHOR AUTHOR'S ORGANIZ ATION 04/20/2023 [facility] ([place] DATE CREATED AUTHOR AUTHOR'S ORGANIZ ATION 11/01/2024 [facility] DATE CREATED AUTHOR AUTHOR'S ORGANIZ ATION 11/08/2024 [facility] Reason for Visit (unrecogniz ed section and content) Reason Comments Procedure Botulinum Toxin Injection Specialty Diagnoses / Procedures Referred By Contac t Referred To Contact Diagnoses Intractable chronic migraine without aura and without status migrainosus Megan Mason APRN - CNP [address] [facility] [address] [place] [address] Phone: tel: fax: Referral ID Status Reason Start Date Expiration Date Visits Re quested Visits Authorized [id number] Closed 05/23/2024 05/18/2025 1 1 Reason Comments Procedure Specialty Diagnoses / Procedures Referred By Contac t Referred To Contact Diagnoses Intractable chronic migraine without aura and without status migrainosus Megan Mason APRN - CNP [address] [facility] [address] [place] [address] Referral ID Status Reason Start Date Expiration Date V isits Requested Visits Authorized [id number] Pending Review 02/28/2024 02/22/2025 1 1 Reason Comments Facial Swelling Reason Onset Date Comments pt returning call. Office ca lled to change depo appt locatio 10/06/2022 pt returning call. Office ca lled to change depo appt location Reason Comments New Patient Headache Specialty Diagnoses / Procedures Referred By Contac t Referred To Contact Neurology Diagnoses Other migraine, not intractable, without status migrainosus Procedures MS OFFICE/OUTPATIENT NEW MODERATE MDM 45-59 MINUTES Ar Lima [address] [place] [address] Perry Mckeon MD [address] [facility] [address] [place] [address] Referral ID Status Reason Start Date Expiration Date V isits Requested Visits Authorized [id number] Pending Review 08/25/2022 08/26/2023 1 1 Reason Onset Date Comments Advice Only 12/19/2022 Reason Comments Med Refill Reason Comments Follow-up Headache Specialty Diagnoses / Procedures Referred By Ariadna t Referred To Contact Radiology Diagnoses Intractable chronic migraine without aura and without status migrainosus Procedures MR brain w and wo contrast Megan Mason, CABIN EQUIPMENT SUPERVISOR - MANAGER HRIS [address] [place] [address] Referral ID Status Reason Start Date Expiration Date Visits Re quested Visits Authorized [id number] Closed 05/11/2023 05/10/2024 1 1 Referral ID Status Reason Start Date Expiration Date V isits Requested Visits Authorized [id number] Pending Review 06/21/2023 06/15/2024 1 1 Reason Comments Injections Depo-Provera Injecti on Reason Onset Date Comments Results 06/29/2023 Reason Onset Date Comments Discuss Medications 12/15/2022 Reason Comments Follow-up botox Reason Onset Date Comments Botulinum Toxin Injection 08/25/2023 Reason Onset Date Comments Discuss Medications 09/11/2023 medroxyPROGE STERone (Depo-Provera) injection 150 mg Med Refill 09/11/2023 Reason Onset Date Comments Urinary Frequency 10/17/2023 Referral ID Status Reason Start Date Expiration Date V isits Requested Visits Authorized [id number] Pending Review 10/31/2023 10/25/2024 1 1 Reason Onset Date Comments Med Refill 11/19/2023 Reason Comments Follow-up Urinary incontinence for years Vaginal itching IBS Reason Onset Date Comments Results 01/01/2024 Reason Onset Date Comments Reschedule 01/30/2024 Reason Onset Date Comments Other 01/11/2024 Botox Delivery R X SHSP Reason Onset Date Comments Medication Question 07/02/2024 Reason Onset Date Comments Migraine 07/02/2024 Reason Onset Date Comments Med Management 07/02/2024 Reason Onset Date Comments Advice Only 07/29/2024 Referral ID Status Reason Start Date Expiration Date Visits Re quested Visits Authorized [id number] Closed 08/15/2024 08/10/2025 1 1 Reason Onset Date Comments Medication Reaction 09/04/2024 Reason Onset Date Comments Medication Problem 09/23/2024 Reason Onset Date Comments Medication Problem 10/16/2024 Reason Onset Date Comments Medication Problem 10/16/2024 Patient state s the Rishid is not covered and wants to know if she get get another medication prescribed. She states she wants to continue not having periods and doesn't want it to cause weight gain. Please call and advise. Thank you. Reason Comments Contraception Discuss alternative BCPreviously on depo, last injection in AugustPatient noticing weight gain No periods with depo,Denies pelvic pain Scheduled Active and Recently Administ ered Medications (unrecognized section and content) Medication Order 10/10/2021 10/11/2021 10/12/2021 acetaminophen (TYLENOL) tablet 1,000 mg (COMPLETED) 1,000 mg, Oral, ONCE, 1 dose, On Mon10/12/21 at 2057, Maximum dose of acetaminophen is 4000 mg from all sources in 24 hours. 2104 (Given - Provid er: Yadira Linder RN) Care Teams (unrecognized sec tion and content) Home Performance Laborer Relationship Specialty Start Date End Date Son Delarosa MD PCP - General 09/22/18 Home Performance Laborer Relationship Specialty Start Date End Date Beba Humphreys DO [address] [facility] [place] [place] [address] PCP - General 06/12/21 Home Performance Laborer Relationship Specialty Start Date End Date Beba Humphreys DO [address] [facility] [place] [address] PCP - General 06/12/21 Home Performance Laborer Relationship Specialty Start Date End Date [facility] [address] [place] [address] PCP - General 11/11/22 Home Performance Laborer Relationship Specialty Start Date End Date [facility] [address] [place] [address] PCP - General 11/11/22 Team Status: Active Member Role Status Dates No Primary Care Physician Primary Care Provider Active Team Status: Inactive Member Role Status Dates Dr. Ar Villarreal MD Attending Provider, Referring Pr ovider Active No Primary Care Physician Primary Care Provider Active Home Performance Laborer Relationship Specialty Start Date End Date [facility] [address] [facility] [address] [place] [address] PCP - General 11/11/22 Home Performance Laborer Relationship Specialty Start Date End Date [facility] [address] [place] [address] PCP - General 11/11/22 Home Performance Laborer Relationship Specialty Start Date End Date [facility] [address] [facility] [place] [address] PCP - General 11/11/22 Home Performance Laborer Relationship Specialty Start Date End Date [facility] [address] [facility] [place] [address] PCP - General 11/11/22 Home Performance Laborer Relationship Specialty Start Date End Date [facility] [address] [facility] [place] [address] PCP - General 11/11/22 Home Performance Laborer Relationship Specialty Start Date End Date Beba Humphreys DO [address] [place] [address] PCP - General 06/12/21 11/10/22 [facility] [address] [facility] [place] [address] PCP - General 11/11/22 Home Performance Laborer Relationship Specialty Start Date End Date [facility] [address] [facility] [place] [address] PCP - General 11/11/22 Home Performance Laborer Relationship Specialty Start Date End Date [facility] [address] [facility] [place] [address] PCP - General 11/11/22 Team Status: Active Member Role Status Dates Nataliya Gomez MD Primary Care Provider Active Team Status: Inactive Member Role Status Dates Nataliya Gomez MD Primary Care Provide r, Attending Provider, Referring Provider Active Home Performance Laborer Relationship Specialty Start Date End Date [facility] [address] [place] [address] PCP - General 11/11/22 Home Performance Laborer Relationship Specialty Start Date End Date [facility] [address] [place] [address] PCP - General 11/11/22 Home Performance Laborer Relationship Specialty Start Date End Date Nataliya Gomez MD [address] [facility] [address] [place] [address] PCP - General Family Medicine 10/31/23 Home Performance Laborer Relationship Specialty Start Date End Date Nataliya Gomez MD [address] [place] [address] [address] [place] [address] PCP - General Family Medicine 10/31/23 Home Performance Laborer Relationship Specialty Start Date End Date Nataliya Gomez MD [address] [place] [address] [address] [place] [address] PCP - General Family Medicine 10/31/23 Home Performance Laborer Relationship Specialty Start Date End Date Nataliya Gomez MD [address] [facility] [address] [place] [address] PCP - General Family Medicine 10/31/23 Home Performance Laborer Relationship Specialty Start Date End Date Nataliya Gomez MD [address] [place] [address] [address] [place] [address] PCP - General Family Medicine 10/31/23 Home Performance Laborer Relationship Specialty Start Date End Date Nataliya Gomez MD [address] [place] [address] [address] [place] [address] PCP - General Family Medicine 10/31/23 Home Performance Laborer Relationship Specialty Start Date End Date Nataliya Gomez MD [address] [facility] [address] [place] [address] PCP - General Family Medicine 10/31/23 Team Status: Inactive Member Role Status Dates Nataliya Gomez MD Primary Care Provider Active St art: August 19, 2024 End: August 19, 2024 Nataliya Gomez MD Attending Provider Active Start : August 19, 2024 End: August 19, 2024 Nataliya Gomez MD Referring Provider Active Start : August 19, 2024 End: August 19, 2024 Home Performance Laborer Relationship Specialty Start Date End Date Nataliya Gomez MD [address] [place] [address] [address] [place] [address] PCP - General Family Medicine 10/31/23 Home Performance Laborer Relationship Specialty Start Date End Date Nataliya Gomez MD [address] [place] [address] [address] [place] [address] PCP - General Family Medicine 10/31/23 Home Performance Laborer Relationship Specialty Start Date End Date Nataliya Gomez MD [address] [place] [address] [address] [place] [address] PCP - General Family Medicine 10/31/23 Home Performance Laborer Relationship Specialty Start Date End Date Nataliya Gomez MD [address] [facility] [address] [place] [address] PCP - General Family Medicine 10/31/23 Home Performance Laborer Relationship Specialty Start Date End Date Nataliya Gomez MD [address] [facility] [address] [place] [address] PCP - General Family Medicine 10/31/23 Home Performance Laborer Relationship Specialty Start Date End Date Nataliya Gomez MD [address] [facility] [address] [place] [address] PCP - General Family Medicine 10/31/23 Home Performance Laborer Relationship Specialty Start Date End Date Nataliya Gomez MD [address] [place] [address] [place] [address] PCP - General Family Medicine 10/31/23 Team Status: Inactive Member Role Status Sandra Gomez MD Primary Care Provider Active St art: October 03, 2024 End: October 03, 2024 Dr. Ar Villarreal MD Attending Provider Active Start: October 03, 2024 End: October 03, 2024 Dr. Ar Villarreal MD Referring Provider Active Start: October 03, 2024 End: October 03, 2024 Team Status: Inactive Member Role Status Sandra Gomez MD Primary Care Provider Active St art: October 23, 2024 End: October 23, 2024 Dr. Humphrey Andrew DO Emergency Provider Active Start : October 23, 2024 End: October 23, 2024 Team Status: Inactive Member Role Status Sandra Gomez MD Primary Care Provider Active St art: October 24, 2024 End: October 24, 2024 Nataliya Gomez MD Referring Provider Active Start : October 24, 2024 End: October 24, 2024 Dr. Moses Montalvo DO Attending Provider Active Start: October 24, 2024 End: October 24, 2024 Team Status: Inactive Member Role Status Sandra Gomez MD Primary Care Provider Active St art: October 24, 2024 End: October 24, 2024 Dr. Moses Montalvo DO Attending Provider Active Start: October 24, 2024 End: October 24, 2024 Dr. Moses Montalvo DO Referring Provider Active Start: October 24, 2024 End: October 24, 2024 Care Team (unrecognized sect ion and content) Care Team Personnel Name: Susan Rodriguez Clereros Brooke PT Position: P3 Scheduling - Vision Rehabilitation Therapist Advanced Member Role: Other Name: PHYSICIAN, NONE Position: Physician Member Role: Primary Care Physician Care Team Related Persons Name: YEIMI GANDARA Address: Home [address] [place], [place] [id number] [place] Name: SILVANA GIRON Address: Home [address] [place] [place] [id number] [place] Address: Temporary [address], [id number] Care Team Personnel Name: Jennifer, Sanitation Inspector Mendy PT Position: P3 Scheduling - Vision Rehabilitation Therapist Advanced Member Role: Other Name: PHYSICIAN, NONE Position: Physician Member Role: Primary Care Physician Care Team Related Persons Name: YEIMI GANDARA Address: [place] [address] [place], [place] [id number] [place] Name: SILVANA GIRON Address: Home [address] [place] [id number] [place] Address: Temporary [address], [id number] Care Team Personnel Name: Jennifer, Sanitation Inspector Mendy PT Position: P3 Scheduling - Vision Rehabilitation Therapist Advanced Member Role: Other Name: PHYSICIAN, NONE Position: Physician Member Role: Primary Care Physician Name: AUBREY CASTILLO DO Position: ED Physician Member Role: ED Physician Address: Address: [address] [place] [address] Name: MARIE Allen Position: RN Member Role: ED RN Care Team Related Persons Name: YEIMI GANDARA Address: Home [address] [place], [place] [id number] [place] Name: SILVANA GIRON Address: Home [address] [place], [place] [id number] [place] Address: Temporary [address], [id number] Goals (unrecognized section and content) Goals may be documented in a n alternate section FOR RECORDS PERTAINING TO PATIENTS WHO ARE OR HAVE BEEN ENROLLED IN A CHEMICAL DEPENDENCY/SUBSTANCEABUSE PROGRAM, SOME INFORMATION MAY BE OMITTED. This clinical summary was aggregated from multiple sources. Caution should be exercised in using it in the provision of clinical care. This summary normalizes information from multiple sources, and as a consequence, information in this document may materially change the coding, format and clinical context of patient data. In addition, data may be omitted in some cases. CLINICAL DECISIONS SHOULD BE BASED ON THE PRIMARY CLINICAL RECORDS. [employer] provides no warranty or guarantee of the accuracy or completeness of information in this document.
[2024-11-08 19:28] LABS: Potassium 3.6 mmol/L (3.3-5.1)
== END | disposition home or self-care (01) ==
PROVIDERS: PCP Family Medicine; Referring Provider Internal Medicine Gastroenterology; Visit Provider Internal Medicine Gastroenterology
DX: D58.2 Other hemoglobinopathies (principal); R19.7 Diarrhea, unspecified; R53.83 Other fatigue
CPT/HCPCS: 36415; 80053; 82306; 82607; 84132; 84436; 84443; 85025

== ENCOUNTER → 2024-11-15 | Outpatient (CLI) | payer MEDICARE, MEDICAID, SELFPAY ==
--- NOTE | 2024-11-15 09:42 | US_ITS ---
PROCEDURE: ABD LIMITED W/ ELASTOGRAPHY REASON FOR EXAM: ABDOMINAL PAIN COMPARISON: None. TECHNIQUE: Right upper quadrant abdominal ultrasound. [facility] ElastQ Imaging shear wave elastography for non-invasive assessment of liver tissue stiffness. [employer] EPIQ Elite. FINDINGS: LIVER: Size: Unremarkable Length: 16 point cm Echotexture: Diffusely echogenic suggesting fatty infiltration Contour: Normal Lesions: None identified Elastography: EQI Med: 7.4 kPa EQI Med Dominik: 1.5 m/s IQR/Med: 21 %* GALLBLADDER: Normal COMMON BILE DUCT: Normal measuring 4.8 mm . PANCREAS: Normal Visualized portions of the right kidney are unremarkable. No right upper quadrant ascites. US/ABD Limited w/ Elastography IMPRESSION: [id number]-hm-[id number] hepatic fibrosis. Fatty infiltration of the liver. Reference Values: SRU <1.37 m/s (5.7kPa): No to mild fibrosis 1.37 m/s - 2.2 m/s: Moderate to severe fibrosis >2.2 m/s (15kPa): Significant fibrosis / cirrhosis METAVIR Score F2 or higher: 1.34 m/s (5.7kPa) F3 or higher: 1.55 m/s (7.3kPa) F4: 1.80 m/s (10kPa) * If the IQR/Med is >30%, the variance in the measurements is a large and the a ccuracy of the measurement may be in question. Reading Location: [id number]
== END | disposition home or self-care (01) ==
LOC: US 09:37
PROVIDERS: PCP Family Medicine; Referring Provider Internal Medicine Gastroenterology; Visit Provider Internal Medicine Gastroenterology
DX: R10.9 Unspecified abdominal pain (principal); R19.7 Diarrhea, unspecified
CPT/HCPCS: 76705; 76981

== ENCOUNTER → 2024-11-26 | Outpatient (CLI) | payer MEDICARE, MEDICAID, SELFPAY ==
--- NOTE | 2024-11-26 15:00 | CT_ITS ---
PROCEDURE: ABDOMEN/PELVIS WITH CONTRAST 11/26/2024 REASON FOR EXAM: ABDOMINAL PAIN 2 year history of abdominal pain. History of IBS. TECHNIQUE: ABDOMEN/PELVIS WITH CONTRAST Coronal and Sagittal reconstruction series were provided. CONTRAST: Isovue-300 VOLUME: 100 mL One or more dose reduction techniques were used (e.g., Automated exposure control, adjustment of the mA and/or kV according to patient size, use of iterative reconstruction technique. RADIATION DOSE SUMMARY: CTDlvol: 12.5 mGy DLP: 1242.65 mGycm COMPARISON: None FINDINGS: Lung bases: Clear. Liver: Fatty infiltration of the liver. Gallbladder: Unremarkable Spleen: Normal size. Pancreas: Normal size without evidence of mass surrounding inflammation or ductal dilation. Adrenals: Unremarkable Kidneys: Normal renal sizes. No hydronephrosis. Bladder: Unremarkable Reproductive Organs: Normal uterine size and contour. Ovaries are unremarkable. Bowel: Scattered sigmoid diverticula. Appendix: Unremarkable Lymph nodes: Unremarkable Vasculature: The abdominal aorta and IVC are normal. Peritoneum / Retroperitoneum: Unremarkable Bones: Disc space narrowing and spondylosis at the L3-L4 level. CT/Abdomen/Pelvis WITH Contrast IMPRESSION: Fatty infiltration of the liver. Reading Location: [facility]
== END | disposition home or self-care (01) ==
LOC: CT 14:39
PROVIDERS: PCP Family Medicine; Referring Provider Internal Medicine Gastroenterology; Visit Provider Internal Medicine Gastroenterology
DX: R10.9 Unspecified abdominal pain (principal)
CPT/HCPCS: 74177; Q9967

== ENCOUNTER 2024-12-16 05:29 | Day surgery (SDC) | payer MEDICARE, MEDICAID, SELFPAY ==
--- OUTSIDE RECORDS SUMMARY | 2024-12-16 05:34 | XMS RPT_ITS | CCD ---
Author Organization [facility] Care Team Providers Care Marketing Manager Health Communications Name Role Phone OBED SAMSON Attending Unavailable IMCA Referring Unavailable BURSLEY, CHRISTOPHER Primary Care Unavailable OBED SAMSON Attending Unavailable IMCA Referring Unavailable ZAIRALEY, CHRISTOPHER Primary Care Unavailable OBED SAMSON Attending [...] DR BEBA HUMPHREYS DO Primary Care Physician Mendy Rodriguez PT Unavailable Unavailable Son Delarosa MD Primary Care Provider PHYSICIAN, NONE Primary Care Physician Unavailab Beba Green DO Primary Care Provider [phone] [facility] Primary Care Provider Unav ailable SEVERINO BLACKWELL DO Attending Unavailable PHYSICIAN, NONE Primary Care Unavailable HELGA PHELPS MD Attending Unavailable PHYSICIAN, NONE Primary Care Unavailable VINH HOLLAND, DR MONTANA Pelayo Attending Unagamal womack PHYSICIAN, NONE Primary Care Unavailable Beba Humphreys DO Primary Care Provider Nataliya Gomez MD Primary Care Provider Nataliya Gomez MD Primary Care Provider [phone] Nataliya Gomez MD Attending Provider Nataliya Gomez MD Referring Provider Patricia HOLLAND, Nataliya Carlin Primary Care Provider Cherelle HOLLAND, Dr. Joyner Attending Provider Cherelle HOLLAND, Dr. Joyner Referring Provider [phone] Lorrie RODRIGUEZ, Dr. Yin Emergency Provider Katia RODRIGUEZ, Dr. Lopes Attending Provider Katia RODRIGUEZ, Dr. Lopes Referring Provider Lorrie RODRIGUEZ, Dr. Yin Attending Provider [phone] Nataliya Gomez MD Primary Care Provider Patricia, Chalon Primary Care Unavailable Friend, Moses Attending Unavailable Friend, Moses Referring Unavailable Patricia, Chalon Primary Care Unavailable Friend, Moses Attending Unavailable Friend, Moses Referring Unavailable Patricia, Chalon Primary Care Unavailable Friend, Moses Referring Unavailable Friend, Moses Attending Unavailable Patricia, Chalon Primary Care Unavailable Friend, Moses Attending Unavailable Friend, Moses Referring Unavailable Patricia, Chalon Primary Care Unavailable Patricia, Chalon Referring Unavailable Schneider, Shailesh Attending Unavailable Patricia, Chalon Referring Unavailable Schneider, Shailesh Attending Unavailable Patricia, Chalon Primary Care Unavailable Patricia, Chalon Primary Care Unavailable Patricia, Chalon Referring Unavailable Friend, Moses Attending Unavailable Patricia, Chalon Primary Care Unavailable Friend, Moses Attending Unavailable Friend, Moses Referring Unavailable Patricia, Chalon Attending Unavailable Patricia, Chalon Primary Care Unavailable Patricia, Chalon Primary Care Unavailable LeHumphrey Attending Unavailable Patricia, Chalon Primary Care Unavailable Cherelle, Ar Referring Unavailable Cherelle, Ar Attending Unavailable Patricia, Chalon Primary Care Unavailable Patricia, Chalon Referring Unavailable Patricia, Chalon Attending Unavailable Patricia, Chalon Primary Care Unavailable Patricia, Chalon Referring Unavailable Patricia, Chalon Attending Unavailable Patricia, Chalon Primary Care Unavailable Friend, Moses Referring Unavailable Friend, Moses Attending Unavailable Patricia, Chalon Primary Care Unavailable Patricia, Chalon Referring Unavailable Friend, Moses Attending Unavailable MEGAN MASON Attending Unavailable MARLON, MEGAN Referring Unavailable PATRICIA, CHALON Primary Care Unavailable PATRICIA, CHALON Primary Care Unavailable MEGAN MASON Attending Unavailable PATRICIA, CHALON Primary Care Unavailable PATRICIA, CHALON Primary Care Unavailable PATRICIA, CHALON Primary Care Unavailable MEGAN MASON Attending Unavailable PATRICIA, CHALON Primary Care Unavailable VALERI KWOK Attending Unavailable PATRICIA, CHALON Primary Care Unavailable MEGAN MASON Attending Unavailable PATRICIA, CHALON Primary Care Unavailable PATRICIA, CHALON Primary Care Unavailable GONZALO MALIK Attending Unavailable PATRICIA, CHALON Primary Care Unavailable Allergies Allergy Classification Reported Allergen(s) Allergy Type Date of Onset Reaction(s) Facility Acetaminophen / HYDROcodone (2 sources) Acetaminophen / HYDROcodone Drug Allergy 7 Nausea And Vomiting [facility] NSAIDs (2 sources) Ibuprofen Drug Allergy 9 [facility] Opioid Agonists (2 sources) Codeine Drug Allergy 7 Nausea And Vomiting [facility] (20 sources) Acetaminophen / HYDROcodone; Translations: [HYDROCODONE-ACET AMINOPHEN] Drug Allergy 7 Nausea And Vomiting, GI Upset [facility] Repository (20 sources) Codeine; Translations: [CODEINE] Drug Allergy 7 Nausea And Vomiting, [facility] [place] Repository (10 sources) Acetaminophen / HYDROcodone; Translations: [acetaminophen-hy drocodone] Drug Allergy [facility] (20 sources) Ibuprofen; Translations: [IBUPROFEN] Drug Allergy 9 [facility] (10 sources) HYDROcodone; Translations: [hydrocodone bitartrate] Drug Allergy 0 Upset Stomach [facility] Medications Current Medications Medication Drug Class(es) Dates Sig (Normalized) Sig (Original) [id number] 200 actuat albuterol 0.09 mg/actuat metered dose inhaler (20 sources) beta2-Adrenergic Agonist Start: 06-21-2021 take 2 puff(s) by inhalation four times daily as needed for wheezing ProAir HFA MDI (90 mcg/inh) inhalation aerosol 2 puff(s), Inhalation, QID, PRN as needed for wheezing, # 1 EA, 1 Refill(s), [facility]acy: [facility], 167.6, cm, 06/21/21 10:12:00 EST, Height, kg, 06/21/21 10:12:00 EST, Dosing Weight Start Date: 06/21/21 Status: Ordered Start: 06-21-2021 take 2 puff(s) by in halation four times daily as needed for wheezing ProAir HFA MDI (90 mcg/inh) inhalation aerosol 2 puff(s), Inhalation, QID, PRN as needed for wheezing, # 1 EA, 1 Refill(s), Pharmacy: [facility], 167.6, cm, 06/21/21 10:12:00 EST, Height, kg, 06/21/21 10:12:00 EST, Dosing Weight Start Date: 06/21/21 Status: Ordered Start: 12-03-2020 take 2 puff(s) by in halation four times daily as needed for wheezing ProAir HFA MDI (90 mcg/inh) inhalation aerosol 2 puff(s), Inhalation, QID, PRN as needed for wheezing, # 1 EA, 1 Refill(s), Pharmacy: [id number], 167.6, cm, 12/03/20 14:18:00 EDT, Height, [...] mg tablet Active 30 mg PO daily 0 October 24, 2024 12:00am Start: 07-19-2024 take 2 tablets by mo [facility] every twelve hours amphetamine-dextroamphetamine (Adderall) 12.5 mg tablet Take 2 tablets (25 mg) by mouth every 12 hours. 07/19/2024 Active Start: 11-30-2021 End: 11-07-2024 amphetamine-dextroamphetamin e (Adderall) 20 MG tablet 11/30/2021 11/07/2024 Discontinued Start: 04-07-2013 End: 07-01-2013 take 1 tablet by mouth once daily Dextroamphetamine-Amphetamine (Adderall 10 Mg Tablet) 10 MG tablet Discontinued 10 mg PO DAILY April 07, 2013 12:00am July 01, 2013 7:26pm ARIPiprazole 10 mg oral tablet (20 sources) Atypical Antipsychotic Start: 11-11-2020 ARIPipr azole [...] 07, 2013 12:00am July 01, 2013 7:26pm Atogepant (Qulipta) 60 MG tablet (2 sources) Start: 11-08-2024 take 1 tablet by mouth once daily in the evening Atogepant (Qulipta) 60 MG tablet Indications: Migraine Take 1 tablet by mouth daily. 90 tablet 3 11/13/2024 3:58 PM EDT 11/08/2024 Active Start: 11-08-2024 take 1 tablet by suman th once daily Atogepant (Qulipta) 60 MG tablet Indications: Migraine Take 1 tablet by mouth daily. 90 tablet 3 11/08/2024 Active B-Plex (Vitamin B Complex) oral tablet (8 sources) Start: 11-11-2020 take 1 tablet by mouth once daily B-Plex (Vitamin B Complex) oral tablet Dose = 1 tab(s), Oral, Daily, okay to change to brand covered by insurance., # 30 tab(s), 0 Refill(s), Pharmacy: [facility], 167.6, cm, 11/11/20 15:37:00 EDT, Height, kg, [...] 04/11/23 Stop Date: 04/21/23 Status: Ordered Biotin (5 sources) Start: 10-24-2024 Biotin 2,500 m cg tablet,chewable [...] GUMMIES PO) Take by mouth. 0 Active onabotulinumtoxina 200 unt injection (20 sources) Acetylcholine Release Inhibitor Start: 10-23-2024 Botox 200 unit injection 10/23/2024 Active Start: 08-15-2024 End: 08-15-2024 onabotulinumtoxinA (Botox) i njection 200 Units Start: 08-15-2024 End: 08-15-2024 inject [...] i njection 200 Units Start: 05-15-2023 End: 11-07-2024 onabotulinumtoxinA (Botox) 2 00 units injection Inject 200 units as directed every 12 weeks for migraine prevention 1 each 2 11/01/2024 4:20 PM EDT 04/15/2024 11/07/2024 Discontinued (Side effects) cephalexin 500 mg oral capsule (2 sources) [...] once daily cholecalciferol (Vitamin D-3) 50 MCG (1999 UT) tablet Take 50 mcg by mouth daily. 09/19/2022 Active diazePAM 5 mg oral tablet (1 source) Benzodiazepine Start: 09-13-2024 diazePAM (Valium) 5 mg tablet take 1 tablet by mouth ONCE 15 MINUTES PRIOR TO MRI 09/13/2024 Active dicyclomine hydrochloride 20 mg oral tablet (6 sources) Anticholinergic Start: 11-19-2024 take 1 tablet by mouth three times daily Dicyclomine 20 mg tablet Active 20 mg PO THREE TIMES A DAY 90 November 19, 2024 12:00am Start: 05-14-2020 take 1 tablet by suman th 30 minutes before mealtime as needed for muscle spasms Dicyclomine HCl - 20 MG Oral Tablet 1 TAB 30 MINUTES BEFORE MEALS NEEDED FOR BOWEL SPASM Quantity: 90 Refills: 2 Lacey Javed PA-C Start : 14-May-2020 Active Start: 05-11-2020 Dicyclomine HC l - 10 MG Oral Capsule Quantity: 40 Refills: 0 Start : 11-May-2020 Active DME MISCellaneous (7 sources) Start: 03-31-2021 [...] / ethinyl estradiol 0.03 mg oral tablet (4 sources) Progestin, Estrogen Start: 10-21-2024 drospirenone-ethinyl estradiol (Morena 28) 3-0.03 MG tablet 1 tablet daily, skip placebos and start new pack 56 tablet 6 10/21/2024 Active famotidine 40 mg oral tablet (8 sources) Histamine-2 Receptor Antagonist Start: 10-18-2021 famotidine 40 mg ora l tablet Dose : 40 mg = 1 tab(s), Oral, qHS, for reflux, # 30 tab(s), 11 Refill(s), Pharmacy: [address], 169.5, cm, 03/22/21 10:28:00 EDT, Height, kg, 12/03/20 14:28:00 EDT, Dosing Weight Start Date: 03/22/21 Status: Ordered gabapentin 600 mg oral tablet (20 sources) Anti-epileptic Agent Start: 10-24-2024 Gabapentin 600 [...] pain, # 60 tab(s), 2 Refill(s), [facility]acy: [facility], DDD (degenerative disc disease), lumbar, 167.6, cm, 06/21/21 10:12:00 EST, Height, kg, 06/21/21 10:12:00 EST, Dosing Weight Start Date: 06/21/21 Status: Ordered Start: 03-22-2021 ibuprofen 800 mg oral tablet Dose : 800 mg = 1 tab(s), Oral, q12h, PRN as needed for pain, # 60 tab(s), 2 Refill(s), [facility]acy: [facility], DDD (degenerative disc disease), lumbar, 169.5, [...] 22, 2020 1:00am October 24, 2024 11:15am End: 11-07-2024 take 4 tablets by mouth in the morning lamoTRIgine (LaMICtal) 25 MG tablet Take 100 mg by mouth in the morning. 11/07/2024 Discontinued mirtazapine 15 mg oral tablet (1 source) [...] 12:00am Multivitamin With Minerals 1 EACH tablet (7 sources) Start: 05-22-2020 take 1 tablet by mouth once daily Multivitamin With Minerals 1 EACH tablet Active 1 NMA PO DAILY May 22, 2020 1:00am nystatin [id number] unt/ml oral suspension (2 sources) Polyene Antifungal Start: 11-20-2024 End: 12-04-2024 take 5 mL by mouth four times daily nystatin (Mycostatin) 100,000 unit/mL suspension Indications: Oropharyngeal candidiasis Take 5 mL (500,000 Units) by mouth 4 times a day for 14 days. 280 mL 11/20/2024 12/04/2024 Active Start: 10-10-2024 End: 11-20-2024 take 5 mL by mouth twice daily nystatin (Mycostatin) 1 00,000 unit/mL suspension take 5 MILLILITERS by mouth twice a day 10/10/2024 11/20/2024 Discontinued (Duplicate order) OLANZapine 5 mg oral tablet (1 source) Atypical Antipsychotic Start: 11-05-2024 take 1 tablet by mouth once daily at bedtime OLANZapine (ZyPREXA) 5 mg tablet Take 1 tablet (5 mg) by mouth once daily at bedtime. 11/05/2024 Active Olanzapine-Samido rphan (5 sources) Start: 10-24-2024 Olanzapine-Ozzie jennifer rphan (Lybalvi) 5-10 mg tablet Active 1 {tbl} PO daily October 24, 2024 12:00am OLANZapine-Samido rphan 5-10 MG tablet (20 sources) OLANZapine-Samid o rphan 5-10 MG tablet Take by mouth. Active OLANZapine-Samid orphan 5-10 MG tablet Take by mouth. 0 Active omeprazole 40 mg delayed release oral capsule (20 sources) Proton Pump Inhibitor Start: 04-07-2022 take 1 capsule by mouth in the morning omeprazole (PriLOSEC) [address] capsule Take 40 mg by mouth in the morning. 04/07/2022 Active 24 hr oxybutynin chloride 10 mg extended release oral tablet (1 source) Cholinergic Muscarinic Antagonist Start: 11-02-2024 take 1 tablet by mouth every twenty-four hours in the morning oxyBUTYnin XL (Ditropan-XL) 10 mg 24 hr tablet Take 1 tablet (10 mg) by mouth early in the morning.. 11/02/2024 Active oxyCODONE hydrochloride 5 mg oral tablet (1 source) Opioid Agonist Start: 09-26-2024 take 1 tablet by mouth every twelve hours oxyCODONE (Roxicodone) 5 mg immediate release tablet Take 1 tablet (5 mg) by mouth every 12 hours. 09/26/2024 Active potassium chloride 10 meq extended release oral capsule (5 sources) Start: 10-24-2024 take 1 capsule by mouth once daily Potassium Chloride 10 mEq capsule, extended release Active 10 meq PO daily 20 0 October 24, 2024 12:00am predniSONE 20 mg oral tablet (20 sources) Start: 10-06-2022 End: 11-11-2022 take 5 [...] MG PO DAILY July 16, 2019 12:00am prochlorperazine 25 mg rectal suppository (10 sources) Phenothiazine Start: 11-28-2024 Prochlorperazi ne (Compazine) 25 mg suppository Active 25 mg RC TWICE A DAY as needed for nausea and vomiting 05 06November 28, 2024 12:00am Start: 11-04-2024 take 1 tablet by suman th every eight hours as needed for nausea and vomiting Prochlorperazine Maleate (Compazine) 10 mg tablet Active 10 mg PO Q8H as needed for nausea and vomiting November 04, 2024 12:00am Start: 12-27-2023 take 1 tablet by suman th every twelve hours prochlorperazine (Compazine) 5 mg tablet Take 1 tablet (5 mg) by mouth every 12 hours. 12/27/2023 Active Start: 04-14-2022 End: 04-17-2022 take 1 capsule by mouth three times daily Compazine use prochlorperazine Dose : 10 mg =, Oral, TID, # 12 cap(s), 0 Refill(s), Cough Wheeze Start Date: 04/14/22 Stop Date: 04/17/22 Status: Ordered promethazine hydrochloride 12.5 mg oral tablet (6 sources) Phenothiazine Start: 10-24-2024 take 1 tablet by mouth every six hours as needed Promethazine 12.5 mg tablet Active 12.5 mg PO EVERY 6 HOURS as needed October 24, 2024 12:00am Start: 10-10-2024 take 1 tablet by suman th every eight hours for nausea promethazine (Phenergan) 12.5 mg tablet take 1 tablet by mouth every 8 hours if needed if needed for nausea 10/10/2024 Active rifAXIMin 550 mg oral tablet (20 sources) Rifamycin Antibacterial Start: 06-19-2023 Xifaxa n 550 MG tablet 06/19/2023 Active 72 hr scopolamine 0.0139 mg/hr transdermal system (5 sources) Anticholinergic Start: 11-27-2024 Scopolamine Ba se 1 mg over 3 days patch 3 day Active 1 NMA TD Every 3 Days 5 14 0 November 27, 2024 4:19pm December 10, 2024 12:00am Start: 11-04-2024 End: 11-18-2024 Scopolamine Base 1 mg over 3 days patch 3 day Discontinued 1 NMA TD Every 3 Days 5 14 0 November 04, 2024 12:00am November 17, 2024 12:00am November 18, 2024 12:07am tiZANidine 4 mg oral capsule (14 sources) Central alpha-2 Adrenergic Agonist Start: 10-24-2024 Tizanidine (Zanaflex ) 4 mg capsule Active 20 mg PO AT BEDTIME October 24, 2024 12:00am Start: 04-14-2024 take 1 tablet by suman th twice daily for pain tiZANidine (Zanaflex) 4 mg tablet take 1 tablet by mouth twice a day if needed for BACK PAIN 04/14/2024 Active Start: 03-22-2021 tiZANidine 4 m g oral tablet Dose : 4 mg = 1 tab(s), Oral, q8h, # 90 tab(s), 2 Refill(s), Pharmacy: [facility] [id number], 169.5, cm, 03/22/21 10:28:00 EDT, Height, kg, 12/03/20 14:28:00 EDT, Dosing Weight Start Date: 03/22/21 Status: Ordered ubrogepant 100 mg oral tablet (18 sources) Start: 07-04-2024 Ubrogepant (Ubrelvy) 100 MG tablet Take 100 mg by mouth as needed (migraine). 30 tablet 3 07/05/2024 9:23 AM EST 07/04/2024 Active Vitamin D (5 sources) Start: 10-24-2024 vitamin D Acti ve PO October 24, 2024 12:00am zolpidem tartrate 10 mg oral tablet (20 sources) gamma-Aminobuty chriss Acid-ergic Agonist Start: 11-11-2020 take 1 tablet by mouth once daily zolpidem (Ambien) 10 MG tablet [...] / oxyCODONE hydrochloride 5 mg oral tablet (9 sources) Opioid Agonist Start: 07-16-2019 End: 07-19-2019 Oxycodone-Acetaminop hen 1 TABLET tablet Discontinued 1 {tbl} PO EVERY 6 HOURS NEEDED as needed for Pain 4 3 0 July 16, 2019 July 18, 2019 1:00am July 19, 2019 1:09am Lumbar radiculopathy Radiculopathy, lumbar region Start: 07-16-2019 End: 07-19-2019 take 1 tablet by mouth every six hours as needed Oxycodone-Acetaminophen Discontinued 1 TABLET PO EVERY 6 HOURS NEEDED 4 3 July 16, 2019 July 19, 2019 12:09am calcium carbonate 1500 mg oral tablet (9 sources) Start: 04-07-2013 End: 07-01-2013 take 1 [...] 0 Refill(s) Start Date: 03/30/21 Status: Ordered drospirenone 4 mg oral tablet (5 sources) [...] mg/ml prefilled syringe (20 sources) Progestin Start: 07-09-2024 End: 10-21-2024 medroxyPROGESTERone (Depo-Provera) 150 MG/ML suspension prefilled syringe injection syringe Indications: Encounter for surveillance of contraceptive pills Inject 1 mL (150 mg) into the shoulder, thigh, or buttocks every 90 days 1 mL 09/20/2024 10/21/2024 Discontinued Start: 12-21-2023 End: 10-21-2024 medroxyPROGESTERone (Depo-Pr overa) [...] 150 MG/ML syringe Discontinued 150 mg IM .[id number] May 22, 2020 1:00am October 24, 2024 11:08am Start: 05-22-2020 inject 150 mg by int ramuscular injection every three months Medroxyprogesterone Active 150 MG IM .[id number] May 22, 2020 12:00am medroxyPROGESTER one (Depo-Provera) [...] 29, 2013 1:00am July 01, 2013 7:26pm QUEtiapine 25 mg oral tablet (11 sources) Atypical Antipsychotic Start: 04-23-2020 End: 10-24-2024 take 1-2 tablets by mouth at bedtime Quetiapine 25 MG tablet Discontinued 25 mg PO AT BEDTIME May 22, 2020 1:00am October 24, 2024 11:10am 1-2 tabs rimegepant 75 mg disintegrating oral tablet (20 sources) Start: 06-13-2023 End: 11-07-2024 Rimegepant Sulfate (Nurtec) 75 MG tablet dispersible Take one tablet by mouth as needed for migraine, max once every 48 hours (8 tablets to last 30 days) 8 tablet 3 07/01/2024 11/07/2024 Discontinued rizatriptan 10 mg oral tablet (15 sources) [...] 03/17/2023 Discontinued sertraline 100 mg oral tablet (11 sources) Serotonin Reuptake Inhibitor Start: 08-12-2019 Sertraline [...] completed) traZODone hydrochloride 150 mg oral tablet (9 sources) Serotonin Reuptake Inhibitor Start: 07-16-2019 End: 10-24-2024 take 1 tablet by mouth at bedtime Trazodone 150 MG tablet Discontinued 150 mg PO AT BEDTIME July 16, 2019 1:00am October 24, 2024 11:11am Problems Active Problems Problem Classification Problem Date Documented Da te Episodic/Chronic Abdominal pain (14 sources) Generalized abdominal pain; Translations: [Abdominal pain] Onset: 5 10-24-2024 Episodic Anxiety disorders (8 sources) Anxiety 11-19-2019 Chronic Attention-deficit, conduct, and disruptive behavior disorders (20 sources) Attention deficit hyperactivity disorder; Translations: [Attention-deficit hyperactivity disorder, unspecified type] Onset: 2 12-10-2013 Chronic Contraceptive and procreative management (11 sources) Contraception ; Translations: [Encounter for surveillance of injectable contraceptive] Onset: 5 10-06-2022 Episodic Deficiency and other anemia (1 source) Other hemoglobinopathies; 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 Disorders of teeth and jaw (1 source) Right temporomandibular joint pain dysfunction syndrome; Translations: [Arthralgia of right temporomandibular joint] Episodic Esophageal disorders (11 sources) Gastroesophageal reflux disease without esophagitis; Translations: [Laryngopharyngeal reflux] Onset: 5 12-03-2020 Chronic Genitourinary symptoms and ill-defined conditions (20 sources) Urinary incontinence; Translations: [Unspecified urinary incontinence] Onset: 4 03-22-2022 Chronic Genitourinary symptoms and ill-defined conditions (1 source) Dysuria; Translations: [Dysuria] 12-12-2023 Episodic Headache; including migraine (20 sources) Chronic intractable migraine without aura; Translations: [Chronic migraine without aura, intractable, without status migrainosus] Onset: 4 Chronic Headache; including migraine (1 source) Medication overuse headache; Translations: [Drug-induced headache, not elsewhere classified, not intractable] Episodic Inflammatory diseases of female pelvic organs (6 sources) Vaginitis; Translations: [Acute vaginitis] 10-23-2024 Episodic Mood disorders (20 sources) Bipolar I disorder; Translations: [Bipolar disorder] Onset: 7 07-20-2020 Chronic Mycoses (4 sources) Candidiasis of mouth; Translations: [Candidal stomatitis] Onset: 5 11-20-2024 Episodic Other acquired deformities (20 sources) Postural kyphosis; Translations: [Postural kyphosis, site unspecified] Onset: 0 03-22-2022 Chronic Other circulatory disease (1 source) Clearing throat - hawking; Translations: [Other specified symptoms and signs involving the circulatory and respiratory systems] 11-20-2024 Episodic Other female genital disorders (1 source) Pruritus of vagina; Translations: [Other specified noninflammatory disorders of vagina] 12-13-2023 Episodic Other gastrointestinal disorders (13 sources) Irritable bowel syndrome; Translations: [Irritable bowel syndrome without diarrhea] 05-28-2020 Chronic Other gastrointestinal disorders (2 sources) Constipation alternates with diarrhea; Translations: [Alternating constipation and diarrhea] Episodic Other gastrointestinal disorders (4 sources) Personal history of other diseases of the digestive system; Translations: [History of gastritis] Episodic Other gastrointestinal disorders (10 sources) Diarrhea; Translations: [Diarrhea, unspecified] 10-24-2024 Episodic [...] Translations: [Abnormal weight gain] 10-18-2024 Episodic Other screening for suspected conditions (not mental disorders or infectious disease) (1 source) Cancer cervix screening status; Translations: [Encounter for screening for malignant neoplasm of cervix] 12-13-2023 Episodic Other upper respiratory disease (1 source) Pain in throat; Translations: [Pain in throat] 11-20-2024 Episodic Other upper respiratory infections (8 sources) Acute sinusitis, unspecified; Translations: [Sore throat symptom] Onset: 2 Episodic Screening and history of mental health and substance abuse codes (4 sources) H/O: anxiety state; Translations: [H/O: depression] Episodic Spondylosis; intervertebral disc disorders; other back problems (20 sources) Disorder of lumbar disc; Translations: [Displacement of lumbar intervertebral disc without myelopathy] 10-08-2020 Chronic Superficial injury; contusion (9 sources) Contusion of right hand; Translations: [Contusion of right hand, initial encounter] 11-08-2019 Episodic Unclassified (1 source) Low back pain, unspecified; Translations: [Low back pain, unspecified] Onset: 5 Unclassified (2 sources) Injections; Translations: [Injections] Onset: 4 Urinary tract infections (2 sources) Urinary tract infectious disease; Translations: [Urinary tract infection, site not specified] Onset: 2 Episodic Past or Other Problems Problem Classification Problem Date Documented Da te Episodic/Chronic Bacterial infection; unspecified site (20 sources) Cutaneous actinomycosis; 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] Onset: 12-13-2007 03-22-2022 Episodic Hemorrhage during ; abruptio placenta; placenta [...] unspecified knee] Onset: 04-29-2005 03-22-2022 Episodic Other skin disorders (20 sources) Acne vulgaris; Translations: [Acne vulgaris] Onset: 09-08-2009 03-22-2022 Episodic Other skin disorders (20 sources) Skin tag; Translations: [Other hypertrophic disorders of the skin] Onset: 03-12-2009 03-22-2022 Episodic Sexually transmitted infections (not HIV or hepatitis) (20 sources) Gonorrhea; Translations: [Gonococcal infection, unspecified] Onset: 04-05-2013 03-22-2022 Episodic Spondylosis; intervertebral disc disorders; other back problems (20 sources) Lumbosacral radiculopathy; Translations: [Chronic neck pain] Onset: 12-21-2009 07-29-2019 Episodic Comment on above: at L5 Sprains and strains (20 sources) Sprain of ankle; Translations: [Sprain of unspecified ligament of unspecified ankle, initial encounter] Onset: 04-29-2005 03-22-2022 Episodic Unclassified (1 source) Lumbago with sciatica, right side Onset: 07-17-2018 Unclassified (2 sources) History of clinical finding in subject; Translations: [History of chronic fatigue] Unclassified (1 source) Onset: 11-20-2024 11-20-2024 Viral infection (20 sources) Verruca vulgaris; Translations: [Viral wart, unspecified] Onset: 06-27-2008 03-22-2022 Episodic Results Test Name Value Interpretation Reference Range Facility 36on 12-11-2024 36 Noted Normal [facility] 36 Name of caller: Fadumo lee Contact phone number: [phone] Relationship to Patient: patient Provider: ANTWAN Marsh CNP Practice: [facility] [place] Chief Complaint/Reason for Call: Polina states she would like to inform that Qulipta has helped with her headaches tremendously and has not had a headache since August 28. Please be advised. Best time of day caller can be reached: Any Patient advised that office/PCP has 24-48 business hours to return their call: Yes Normal [facility] Abdomen/Pelvis WITH Contrast on 11-26-2024 Abdomen/Pelvis WITH Contrast [facility] Imaging Services [address] [place] [id number] Abdomen/Pelvis WITH Contrast MR#: [id number] Acct: [id number] Name: POLINA GIRON Rep #: [id number] : 1990 F 34 From: Ten rodriguez MD PCP: Dr. Nataliya Gomez MD Status: REG CLI Study: Abdomen/Pelvis WITH Contrast Date of Exam: Exam# [id number] Ordering Dr: Moses Montalvo DO PROCEDURE: ABDOMEN/PELVIS WITH CONTRAST 11/26/2024 REASON FOR EXAM: ABDOMINAL PAIN 2 year history of abdominal pain. History of IBS. TECHNIQUE: ABDOMEN/PELVIS WITH CONTRAST Coronal and Sagittal reconstruction series were provided. CONTRAST: Isovue-300 VOLUME: 100 mL One or more dose reduction techniques were used (e.g., Automated exposure control, adjustment of the mA and/or kV according to patient size, use of iterative reconstruction technique. RADIATION DOSE SUMMARY: CTDlvol: 12.5 mGy DLP: 1242.65 mGycm COMPARISON: None FINDINGS: Lung bases: Clear. Liver: Fatty infiltration of the liver. Gallbladder: Unremarkable Spleen: Normal size. Pancreas: Normal size without evidence of mass surrounding inflammation or ductal dilation. Adrenals: Unremarkable Kidneys: Normal renal sizes. No hydronephrosis. Bladder: Unremarkable Reproductive Organs: Normal uterine size and contour. Ovaries are unremarkable. Bowel: Scattered sigmoid diverticula. Appendix: Unremarkable Lymph nodes: Unremarkable Vasculature: The abdominal aorta and IVC are normal. Peritoneum / Retroperitoneum: Unremarkable Bones: Disc space narrowing and spondylosis at the L3-L4 level. CT/Abdomen/Pelvis WITH Contrast IMPRESSION: Fatty infiltration of the liver. Reading Location: [id number] CC: Dr. Nataliya Gomez MD; Moses Montalvo DO Timber Appraiser: Signed Normal [facility] ABD Limited w/ Elastographyo n 11-15-2024 ABD Limited w/ Elastography [facility] Imaging Services [address] [place] [address] [id number] ABD Limited w/ Elastography MR#: [id number] Acct: [id number] Name: POLINA GIRON Rep #: [id number] : 1990 F 34 From: Ten rodriguez MD PCP: Dr. Nataliya Gomez MD Status: [facility] Study: ABD Limited w/ Elastography Date of Exam: 11/03 08/27 Exam# [id number] Ordering Dr: Moses Montalvo DO PROCEDURE: ABD LIMITED W/ ELASTOGRAPHY REASON FOR EXAM: ABDOMINAL PAIN COMPARISON: None. TECHNIQUE: Right upper quadrant abdominal ultrasound. Kulwant ElastQ Imaging shear wave elastography for non- invasive assessment of liver tissue stiffness. Purch EPIQ Elite. FINDINGS: LIVER: Size: Unremarkable Length: 16 point cm Echotexture: Diffusely echogenic suggesting fatty infiltration Contour: Normal Lesions: None identified Elastography: EQI Med: 7.4 kPa EQI Med Dominik: 1.5 m/s IQR/Med: 21 %* GALLBLADDER: Normal COMMON BILE DUCT: Normal measuring 4.8 mm . PANCREAS: Normal Visualized portions of the right kidney are unremarkable. No right upper quadrant ascites. US/ABD Limited w/ Elastography IMPRESSION: Kcma-gt-lgbognen hepatic fibrosis. Fatty infiltration of the liver. Reference Values: SRU <1.37 m/s (5.7kPa): No to mild fibrosis 1.37 m/s - 2.2 m/s: Moderate to severe fibrosis >2.2 m/s (15kPa): Significant fibrosis / cirrhosis METAVIR Score F2 or higher: 1.34 m/s (5.7kPa) F3 or higher: 1.55 m/s (7.3kPa) F4: 1.80 m/s (10kPa) * If the IQR/Med is >30%, the variance in the measurements is a large and the accuracy of the measurement may be in question. Reading Location: [facility] CC: Dr. Nataliya Gomez MD; Moses Montalvo, Timber Appraiser: Signed Normal [facility] Absolute lymphocyte countOrd ered By: Nataliya Gomez on 11-08-2024 Lymphocytes Auto (Unsp spec) [#/Vol] 2.07 10*3/uL 0.83-4.51 [facility] Absolute neutrophil countOrd ered By: Nataliya Gomez on 11-08-2024 Neutrophils (Bld) [#/Vol] 5.5 10*3/uL 2.0-7.7 [facility] Anion gap in Serum or Plasma Ordered By: Nataliya Gomez on 11-08-2024 Anion gap [Moles/Vol] 13 mmol/L 5-15 [facility] Automated lymphocyte count a s percentage of total leukocytesOrdered By: Nataliya Gomez on 11-08-2024 Lymphocytes/100 WBC Auto (Unsp spec) 25.4 % 19-41 [facility] BUN/creatinine ratioOrdered By: Nataliya Gomez on 11-08-2024 Urea nitrogen/Creatinine [Mass ratio] 12.0 mg/mg 10-20 [facility] Basophil percentageOrdered B y: Nataliya Gomez on 11-08-2024 Basophils/100 WBC (Bld) 0.2 % 0-1 [facility] Bilirubin, totalOrdered By: Nataliya Gomez on 11-08-2024 Bilirubin [Mass/Vol] 0.33 mg/dL 0.00-1.30 [facility] CBC W/Diff, Automatedon Absolute Lymph 2.07 X10 3/uL Normal 0.83-4.51 [facility] Comment on above: Order Comment: Order Date: 10/10/24Order Info: 0184-1 - CBCD Performed By: #### L 400.7600, M100.0500, L400.0001, M100.677 #### [facility] [address] [place], [address] Absolute Neut 5.5 X10 3/uL Normal 2.0-7.7 [facility] Comment on above: Order Comment: Order Date: 10/10/24Order Info: 018- - CBCD Performed By: #### L 400.7600, M100.0500, L400.0001, M100.677 #### [facility] [address] [place], [address] Basophils/100 WBC (Bld) 0.2 % Normal 0-1 [facility] Comment on above: Order Comment: Order Date: 10/10/24Order Info: 018-1 - CBCD Performed By: #### L 400.7600, M100.0500, L400.0001, M100.677 #### [facility] [address] [place], [address] Eosinophils/100 WBC (Bld) 0.5 % Normal 0-5 [facility] Comment on above: Order Comment: Order Date: 10/10/24Order Info: 0184-1 - CBCD Performed By: #### L 400.7600, M100.0500, L400.0001, M100.677 #### [facility] [address] [place], [address] Erythrocyte distribution width (RBC) [Ratio] 13.0 % Normal 11.6-14.6 [facility] Comment on above: Order Comment: Order Date: 10/10/24Order Info: 0184-1 - CBCD Performed By: #### L 400.7600, M100.0500, L400.0001, M100.677 #### [facility] [address] [place], [address] Hematocrit (Bld) [Volume fraction] 42.9 % Normal 37-47 [facility] Comment on above: Order Comment: Order Date: 10/10/24Order Info: 0184-1 - CBCD Performed By: #### L 400.7600, M100.0500, L400.0001, M100.677 #### [facility] [address] [place], [address] Hemoglobin (Bld) [Mass/Vol] 14.2 g/dL Normal 12.0-15.0 [facility] Comment on above: Order Comment: Order Date: 10/10/24Order Info: 0184- - CBCD Performed By: #### L 400.7600, M100.0500, L400.0001, M100.677 #### [facility] [address] [place], [address] IG% 0.400 Normal 0.0-0.9 [facility] Comment on above: Order Comment: Order Date: 10/10/24Order Info: 0184-1 - CBCD Result Comment: IG% - Immature Granulocytes (promyelocytes, myelocytes and metamyelocytes) > 1% indicates that a LEFT SHIFT is Present. Performed By: #### L 400.7600, M100.0500, L400.0001, M100.677 #### [facility] [address] [place], [address] Lymphocytes/100 WBC (Bld) 25.4 % Normal 19-41 [facility] Comment on above: Order Comment: Order Date: 10/10/24Order Info: 0184-1 - CBCD Performed By: #### L 400.7600, M100.0500, L400.0001, M100.677 #### [facility] [address] [place], [address] MCH (RBC) [Entitic mass] 33.0 pg High 27.0-32.0 [facility] Comment on above: Order Comment: Order Date: 10/10/24Order Info: 0184- - CBCD Performed By: #### L 400.7600, M100.0500, L400.0001, M100.677 #### [facility] [address] [place], [address] MCHC (RBC) [Mass/Vol] 33.1 g/dL Normal 32-36 [facility] Comment on above: Order Comment: Order Date: 10/10/24Order Info: 018- - CBCD Performed By: #### L 400.7600, M100.0500, L400.0001, M100.677 #### [facility] [address] [place], [address] MCV (RBC) [Entitic vol] 99.8 fL High 81-99 [facility] Comment on above: Order Comment: Order Date: 10/10/24Order Info: 018- - CBCD Performed By: #### L 400.7600, M100.0500, L400.0001, M100.677 #### [facility] [address] [place], [address] Monocytes/100 WBC (Bld) 5.9 % Normal 0-10 [facility] Comment on above: Order Comment: Order Date: 10/10/24Order Info: 0184-1 - CBCD Performed By: #### L 400.7600, M100.0500, L400.0001, M100.677 #### [facility] [address] [place], [address] Neutrophils/100 WBC (Bld) 67.6 % Normal 47-70 [facility] Comment on above: Order Comment: Order Date: 10/10/24Order Info: 0184-1 - CBCD Performed By: #### L 400.7600, M100.0500, L400.0001, M100.677 #### [facility] [address] [place], [address] Nucleated RBC (Bld) [#/Vol] 0 10*3/uL Normal 0-5 [facility] Comment on above: Order Comment: Order Date: 10/10/24Order Info: 0184-1 - CBCD Performed By: #### L 400.7600, M100.0500, L400.0001, M100.677 #### [facility] [address] [place], [address] Platelet mean volume (Bld) [Entitic vol] 9.8 fL Normal 6.2-12.0 [facility] Comment on above: Order Comment: Order Date: 10/10/24Order Info: 0184- - CBCD Performed By: #### L 400.7600, M100.0500, L400.0001, M100.677 #### [facility] [address] [place], [address] Platelets (Bld) [#/Vol] 222 10*3/uL Normal 150-450 [facility] Comment on above: Order Comment: Order Date: 10/10/24Order Info: 0184-1 - CBCD Performed By: #### L 400.7600, M100.0500, L400.0001, M100.677 #### [facility] [address] [place], [address] RBC (Bld) [#/Vol] 4.30 10*6/uL Normal 4.2-5.4 [facility] Comment on above: Order Comment: Order Date: 10/10/24Order Info: 0184-1 - CBCD Performed By: #### L 400.7600, M100.0500, L400.0001, M100.677 #### [facility] [address] [place], [address] RDW SD 47.8 fl High 35.1-43.9 [facility] Comment on above: Order Comment: Order Date: 10/10/24Order Info: 0184- - CBCD Performed By: #### L 400.7600, M100.0500, L400.0001, M100.677 #### [facility] [address] [place], [address] WBC (Bld) [#/Vol] 8.2 10*3/uL Normal 4.4-11.0 [facility] Comment on above: Order Comment: Order Date: 10/10/24Order Info: 01809-03 - CBCD Performed By: #### L 400.7600, M100.0500, L400.0001, M100.677 #### [facility] [address] [place], [address] Carbon dioxide, total [Moles /volume] in Central venous bloodOrdered By: Nataliya Gomez on 11-08-2024 CO2 [Moles/Vol] 20.2 mmol/L Low 21.0-32.0 [facility] Chloride assayOrdered By: Paulo Gomez on 11-08-2024 Chloride [Moles/Vol] 105 mmol/L 98-108 [facility] Comprehensive Metabolic Prof ilon 11-08-2024 Albumin [Mass/Vol] 4.1 g/dL Normal 3.5-5.0 [facility] Comment on above: Order Comment: Order Date: 10/10/24Order Info: 0786-1 - CMPOrder Info: 3026-2 - M0Npvxm Info: 3016-3 - TSH Performed By: #### L 400.7600, M100.0500, L400.0001, M100.677 #### [facility] [address] [place], [address] Albumin/Globulin [Mass ratio] 1.5 {ratio} Normal 0.9-2.4 [facility] Comment on above: Order Comment: Order Date: 10/10/24Order Info: 86-1 - CMPOrder Info: 3026-2 - R8Wcvbm Info: 3016-3 - TSH Performed By: #### L 400.7600, M100.0500, L400.0001, M100.677 #### [facility] [address] [place], [address] ALK PHOS 56 U/L Normal 35-104 [facility] Comment on above: Order Comment: Order Date: 10/10/24Order Info: 86-1 - CMPOrder Info: 3025-2 - I5Ihaqa Info: 3015-3 - TSH Performed By: #### L 400.7600, M100.0500, L400.0001, M100.677 #### [facility] [address] [place], [address] ALT [Catalytic activity/Vol] 14 U/L Normal <=34 [facility] Comment on above: Order Comment: Order Date: 10/10/24Order Info: 785-1 - CMPOrder Info: 3026-2 - D9Tyrwc Info: 3015-3 - TSH Performed By: #### L 400.7600, M100.0500, L400.0001, M100.677 #### [facility] [address] [place], [address] AST [Catalytic activity/Vol] 18 U/L Normal <=31 [facility] Comment on above: Order Comment: Order Date: 10/10/24Order Info: 86-1 - CMPOrder Info: 3026-2 - R2Rfhoj Info: 3016-3 - TSH Performed By: #### L 400.7600, M100.0500, L400.0001, M100.677 #### [facility] [address] [place], [address] Bilirubin [Mass/Vol] 0.33 mg/dL Normal 0.00-1.30 [facility] Comment on above: Order Comment: Order Date: 10/10/24Order Info: 0786-1 - CMPOrder Info: 3026-2 - A7Utqwc Info: 3015-3 - TSH Performed By: #### L 400.7600, M100.0500, L400.0001, M100.677 #### [facility] [address] [place], [address] BUN/CRE 12.0 RATIO Normal 10-20 [facility] Comment on above: Order Comment: Order Date: 10/10/24Order Info: 0786-1 - CMPOrder Info: 3025-2 - X6Oqkin Info: 3015-3 - TSH Performed By: #### L 400.7600, M100.0500, L400.0001, M100.677 #### [facility] [address] [place], [address] Calcium [Mass/Vol] 9.7 mg/dL Normal 7.6-11.0 [facility] Comment on above: Order Comment: Order Date: 10/10/24Order Info: 07-1 - CMPOrder Info: 3025-2 - K3Avzxl Info: 3015-3 - TSH Performed By: #### L 400.7600, M100.0500, L400.0001, M100.677 #### [facility] [address] [place], [address] Chloride [Moles/Vol] 105 mmol/L Normal 98-108 [facility] Comment on above: Order Comment: Order Date: 10/10/24Order Info: 0786-1 - CMPOrder Info: 3025-2 - S4Ayqfg Info: 3015-3 - TSH Performed By: #### L 400.7600, M100.0500, L400.0001, M100.677 #### [facility] [address] [place], [address] CO2 [Moles/Vol] 20.2 mmol/L Low 21.0-32.0 [facility] Comment on above: Order Comment: Order Date: 10/10/24Order Info: 0786-1 - CMPOrder Info: 3026-2 - K7Ntmqi Info: 3016-3 - TSH Performed By: #### L 400.7600, M100.0500, L400.0001, M100.677 #### [facility] [address] [place], [address] Creatinine [Mass/Vol] 0.77 mg/dL Normal 0.70-1.20 [facility] Comment on above: Order Comment: Order Date: 10/10/24Order Info: 785-1 - CMPOrder Info: 3026-2 - Q0Wosjs Info: 3015-3 - TSH Performed By: #### L 400.7600, M100.0500, L400.0001, M100.677 #### [facility] [address] [place], [address] GAP 13 Normal 5-15 [facility] Comment on above: Order Comment: Order Date: 10/10/24Order Info: 785- - CMPOrder Info: 3025-2 - K6Suodz Info: 3015-3 - TSH Performed By: #### L 400.7600, M100.0500, L400.0001, M100.677 #### [facility] [address] [place], [address] GFR/1.73 sq M.predicted among non-blacks MDRD (S/P/Bld) [Vol rate/Area] 105 mL/min/{1.73_m2} Normal >60 [facility] Comment on above: Order Comment: Order Date: 10/10/24Order Info: 785-1 - CMPOrder Info: 3026-2 - T2Hfxqn Info: 3016-3 - TSH Result Comment: mL/m in/1.73m2 CKD-EPI Creatinine Equation (2020) Performed By: #### L 400.7600, M100.0500, L400.0001, M100.677 #### [facility] [address] [place], [address] Globulin (S) [Mass/Vol] 2.8 g/dL Normal 2.2-4.2 [facility] Comment on above: Order Comment: Order Date: 10/10/24Order Info: 785-1 - CMPOrder Info: 2 - Z3Vkbbg Info: 3015-3 - TSH Performed By: #### L 400.7600, M100.0500, L400.0001, M100.677 #### [facility] [address] [place], [address] Glucose [Mass/Vol] 98 mg/dL Normal 70-99 [facility] Comment on above: Order Comment: Order Date: 10/10/24Order Info: 785-1 - CMPOrder Info: 2 - G6Dhqwx Info: 3 - TSH Performed By: #### L 400.7600, M100.0500, L400.0001, M100.677 #### [facility] [address] [place], [address] Potassium [Moles/Vol] 3.6 mmol/L Normal 3.3-5.1 [facility] Comment on above: Order Comment: Order Date: 10/10/24Order Info: 785-06 - CMPOrder Info: 2 - C3Qygim Info: 3015-3 - TSH Performed By: #### L 400.7600, M100.0500, L400.0001, M100.677 #### [facility] [address] [place], [address] Sodium [Moles/Vol] 138 mmol/L Normal 133-145 [facility] Comment on above: Order Comment: Order Date: 10/10/24Order Info: 785-1 - CMPOrder Info: 2 - F9Aatzd Info: 3015-3 - TSH Performed By: #### L 400.7600, M100.0500, L400.0001, M100.677 #### [facility] [address] [place], [address] T PROT 6.9 g/dL Normal 5.9-8.4 [facility] Comment on above: Order Comment: Order Date: 10/10/24Order Info: 0786- - CMPOrder Info: 2 - R9Izaxh Info: 3 - TSH Performed By: #### L 400.7600, M100.0500, L400.0001, M100.677 #### [facility] [address] [place], [address] Urea nitrogen [Mass/Vol] 9 mg/dL Normal 4-19 [facility] Comment on above: Order Comment: Order Date: 10/10/24Order Info: 0786- - CMPOrder Info: 30211-04 - S8Mkcpq Info: 3013 - TSH Performed By: #### L 400.7600, M100.0500, L400.0001, M100.677 #### [facility] [address] [facility] [place], [place], [address] Eosinophil percentageOrdered By: Nataliya Gomez on 11-08-2024 Eosinophils/100 WBC (Bld) 0.5 % 0-5 [facility] Erythrocyte distribution wid th ratioOrdered By: Nataliya Gomez on 11-08-2024 Erythrocyte distribution width (RBC) [Ratio] 13.0 % 11.6-14.6 [facility] Erythrocyte distribution wid th standard deviationOrdered By: Nataliya Gomez on 11-08-2024 Erythrocyte distribution width (RBC) [Ratio] 47.8 fl High 35.1-43.9 [facility] Glomerular filtration rate ( GFR) estimation/1.73 sq m using serum, plasma, or whole bOrdered By: Nataliya Gomez on 11-08-2024 GFR/1.73 sq M.predicted among non-blacks MDRD (S/P/Bld) [Vol rate/Area] 105 mL/min/{1.73_m2} >60 [facility] Comment on above: mL/min/1.73m2 CKD-EP I Creatinine Equation (2020) Hematocrit Auto (Bld) [Volum e fraction]Ordered By: Nataliya Gomez on 11-08-2024 Hematocrit (Bld) [Volume fraction] 42.9 % 37-47 [facility] Hemoglobin measurementOrdere d By: Nataliya Gomez on 11-08-2024 Hemoglobin (Bld) [Mass/Vol] 14.2 g/dL 12.0-15.0 [facility] Immature granulocytes/100 WB C Auto (Bld)Ordered By: Nataliya Gomez on 11-08-2024 Immature granulocytes/100 WBC (Bld) 0.400 % 0.0-0.9 [facility] Comment on above: IG% - Immature Granu locytes (promyelocytes, myelocytes and metamyelocytes) > 1% indicates that a LEFT SHIFT is Present. Laboratory - Chemistry and C hemistry - challengeOrdered By: Nataliya Gomez on 11-08-2024 AST [Catalytic activity/Vol] 18 U/L <32 [facility] MCV (mean corpuscular volume ) determinationOrdered By: Nataliya Gomez on 11-08-2024 MCV (RBC) [Entitic vol] 99.8 fL High 81-99 [facility] Mean corpuscular hemoglobin (MCH) determinationOrdered By: Nataliya Gomez on 11-08-2024 MCH (RBC) [Entitic mass] 33.0 pg High 27.0-32.0 [facility] Mean corpuscular hemoglobin concentration (MCHC) determinationOrdered By: Nataliya Gomez on 11-08-2024 MCHC (RBC) [Mass/Vol] 33.1 g/dL 32-36 [facility] Mean platelet volume determi nationOrdered By: Nataliya Gomez on 11-08-2024 Platelet mean volume (Bld) [Entitic vol] 9.8 fL 6.2-12.0 [facility] Monocyte percentageOrdered B y: Nataliya Gomez on 11-08-2024 Monocytes/100 WBC (Bld) 5.9 % 0-10 [facility] Neutrophil percentageOrdered By: Nataliya Gomez on 11-08-2024 Neutrophils/100 WBC (Bld) 67.6 % 47-70 [facility] Nucleated red blood cell per centageOrdered By: Nataliya Gomez on 11-08-2024 Nucleated RBC/100 WBC (Bld) [Ratio] 0 % 0-5 [facility] Platelet countOrdered By: Paulo Gomez on 11-08-2024 Platelets (Bld) [#/Vol] 222 10*3/uL 150-450 [facility] Potassiumon 11-08-2024 Potassium [Moles/Vol] 3.6 mmol/L Normal 3.3-5.1 [facility] Comment on above: Performed By: #### L 400.7600, M100.0500, L400.0001, M100.677 #### [facility] [address] [place], [address] Potassium measurement (mass/ volume)Ordered By: Moses Montalvo on 11-08-2024 Potassium (Unsp spec) [Mass/Vol] 3.6 mmol/L 3.3-5.1 [facility] RBC Auto (Bld) [#/Vol]Ordere d By: Nataliya Gomez on 11-08-2024 RBC (Bld) [#/Vol] 4.30 10*6/uL 4.2-5.4 [facility] Serum creatinine measurement (mass/volume)Ordered By: Nataliya Gomez on 11-08-2024 Creatinine [Mass/Vol] 0.77 mg/dL 0.70-1.20 [facility] Serum globulin measurementOr dered By: Nataliya Gomez on 11-08-2024 Globulin (S) [Mass/Vol] 2.8 g/dL 2.2-4.2 [facility] Serum glucose measurement (m ass/volume)Ordered By: Nataliya Gomez on 11-08-2024 Glucose [Mass/Vol] 98 mg/dL 70-99 [facility] Serum or plasma alanine wells otransferase (ALT) measurementOrdered By: Nataliya Gomez on 11-08-2024 ALT [Catalytic activity/Vol] 14 U/L <35 [facility] Serum or plasma albumin aparna urement (mass/volume)Ordered By: Nataliya Gomez on 11-08-2024 Albumin [Mass/Vol] 4.1 g/dL 3.5-5.0 [facility] Serum or plasma albumin/glob ulin mass ratioOrdered By: Nataliya Gomez on 11-08-2024 Albumin/Globulin [Mass ratio] 1.5 {ratio} 0.9-2.4 [facility] Serum or plasma alkaline trell sphatase measurementOrdered By: Nataliya Patricia on 11-08-2024 ALP [Catalytic activity/Vol] 56 U/L 35-104 [facility] Serum or plasma calcium aparna urement (mass/volume)Ordered By: Nataliya Gomez on 11-08-2024 Calcium [Mass/Vol] 9.7 mg/dL 7.6-11.0 [facility] Serum or plasma urea nitroge n measurement (mass/volume)Ordered By: Nataliya Gomez on 11-08-2024 Urea nitrogen [Mass/Vol] 9 mg/dL 4-19 [facility] Sodium levelOrdered By: Kinza Gomez on 11-08-2024 Sodium [Moles/Vol] 138 mmol/L 133-145 [facility] T4 Total, Thyroxinon 025 T4 [Mass/Vol] 7.2 ug/dL Normal 4.8-13.9 [facility] Comment on above: Order Comment: Order Date: 10/10/24Order Info: 0786-1 - CMPOrder Info: 3026-2 - X3Qgwxu Info: 3016-3 - TSH Performed By: #### L 400.7600, M100.0500, L400.0001, M100.677 #### [facility] [address] [place], [place], [id number] TSH DL <= 0.005 mIU/L QnOrde red By: Nataliya Gomez on 11-08-2024 TSH Qn 0.666 uIU/mL 0.300-4.200 [facility] Thyroid Stim Hormone (TSH)on 11-08-2024 TSH 0.666 uIU/mL Normal 0.300-4.200 [facility] Comment on above: Order Comment: Order Date: 10/10/24Order Info: 0786-1 - CMPOrder Info: 3026-2 - J1Mfill Info: 3016-3 - TSH Performed By: #### L 400.7600, M100.0500, L400.0001, M100.677 #### [facility] [address] [place], [place], [address] ThyroxineOrdered By: Nataliya Gomez on 11-08-2024 T4 [Mass/Vol] 7.2 ug/dL 4.8-13.9 [facility] Total proteinOrdered By: Diana Gomez on 11-08-2024 Protein [Mass/Vol] 6.9 g/dL 5.9-8.4 [facility] Vitamin B12on 11-08-2024 Cobalamin (Vitamin B12) [Mass/Vol] 633 pg/mL Normal 180-914 [facility] Comment on above: Order Comment: Order Date: 10/10/24Order Info: 0786-1 - CMPOrder Info: 3025-07 - I9Aitbd Info: 3016-3 - TSH Performed By: #### L 400.7600, M100.0500, L400.0001, M100.677 #### [facility] [address] [place], [place], [address] Vitamin B12 ser/plasOrdered By: Kinzacj Patricia on 11-08-2024 Cobalamin (Vitamin B12) [Mass/Vol] 633 pg/mL 180-914 [facility] Vitamin D,25 Hydroxyon 11-08 Vitamin D 25-OH 43.4 ng/mL Normal 30-100 [facility] Comment on above: Order Comment: Order Date: 10/10/24Order Info: 0786-1 - CMPOrder Info: 3025-07 - Q7Tblgm Info: 3016-3 - TSH Result Comment: Eleni min D Status Deficiency: <20 ng/mL (50nmol/L) Insufficiency: 20-30 ng/mL (50-75 nmol/L) Sufficiency: 30-100 ng/mL (75-250 nmol/L) Toxicity: >100 ng/mL (>250 nmol/L) Performed By: #### L 400.7600, M100.0500, L400.0001, M100.677 #### [facility] [address] [place], [address] White blood cell (WBC) count Ordered By: Nataliya Gomez on 11-08-2024 WBC (Bld) [#/Vol] 8.2 10*3/uL 4.4-11.0 [facility] 37on 11-07-2024 37 Botox is effective f or treating her migraines but she is ill for 3 days following the injections Will provide samples of Qulipta to dose daily Ubrelvy as needed Normal [facility] Office Visiton 11-07-2024 Follow-up visit [id number] BreeNikolai barksdale 1990 F Date Provider Department Center 11/07/2024 [id number] [facility] SB TONE None Family History Problem Relation Age of Onset ADD / ADHD Mother Anxiety disorder Mother Depression Mother Migraines Mother Family Status - Relation Status Age at Mother Level of Service:04358 [place] OFFICE/OUTPATIENT ESTABLISHED MOD MDM 30 MIN Reason for Visit and Comments: Follow-up [850335] Migraine [696894] Normal [facility] Progress Noteon 11-07-2024 Progress Note 4 samples of QULIPTA were given to the patient Lot:[id number] -10/2026 [facility] Progress Note Visit type: Establis hed Patient Reason for Visit: Follow-up and Migraine Assessment and Plan 1. Intractable chronic migraine without aura and without status migrainosus Subjective HPI: Failed TPX, Imitrex, Excedrin, Maxalt Given Ajovy and Aimovig approved. Aimovig caused worsening of migraines, [facility] Began Botox 06/2023 She reports the Botox is working but causes flu like sx for 3 days Body aches, loss of appetite, very tired and wants to sleep These sx began after the past 2 injections She reports only 1 migraine since 08/15/24 injection REVIEW OF SYSTEMS: Review of Systems Constitutional: Negative. HENT: Negative. Eyes: Negative. Respiratory: Negative. Cardiovascular: Negative. Gastrointestinal: Negative. Endocrine: Negative. Musculoskeletal: Negative. Skin: Negative. Allergic/Immunologic: Negative. Neurological: Positive for headaches. Hematological: Negative. Psychiatric/Behavioral: Negative. Allergies[1] Current Medications[2] Medical History[3] Social History Tobacco Use Smoking status: Every Day Current packs/day: 1.50 Average packs/day: 1.2 packs/day for 28.2 years (34.8 ttl pk-yrs) Types: Cigarettes Start date: 08/22/2011 Smokeless tobacco: Never Substance Use Topics Alcohol use: Never Surgical History[4] Family History[5] Objective Vitals: BP 106/71 (BP Location: Right arm, Patient Position: Sitting, BP Cuff Size: Large adult) Pulse 101 Ht 5' 6 (1.676 m) Wt 240 lb 3.2 oz (109 kg) LMP (LMP Unknown) BMI 38.77 kg/m? General Appearance: Patient is in no apparent [...] TSH VITAMIN B12: No results found for: HETJBSFC82 No results found for: PHENYTOIN, PHENOBARB, VALPROATE, CBMZ No components found for: TOPIRA @RESULTINGLABINFO@ No results found for: LEVETIRACETA, FERRITIN, CRP, FRIEDA, ANCA No results found for: ADELE, IMMUNOGLOBUL, OLIGOBANDS No results found for: OOT91MK, HEPCAB No results found for: CRP, ANATITER, ANCA FERRITIN: No results found for: FERRITIN ---- MR brain w and wo contrast Narrative: Patient Name: POLINA GIRON : 1990 Exam Date/Time: 05/23/2023 15:13 Procedure: MR BRAIN [...] Appear fairly well aerated. Orbits: Within normal li (more content not included)... Normal [facility] Magnetic resonance imaging r eportOrdered By: Kennedy Raygoza on 11-02-2024 Study report [facility] Imaging Services [address] [place] [address] Spine Lumbar (Routine) MR#: [id number] Acct: [id number] Name: POLINA GIRON Rep #: [id number] : 1990 F 34 From: Augie Raygoza MD PCP: Dr. Nataliya Gomez MD Status: REG CL I Study:Spine Lumbar (Routine) Date of Exam: 11/02/24 Exam# [id number] Ordering Dr: Diana Gomez MD PROCEDURE: SPINE LUMBAR (ROUTINE) 11/02/2024 [...] without direct nerve root compression Reading Location: [facility] CC: Dr. Nataliya Gomez MD ~ Timber Appraiser: Signed [facility] Spine Lumbar (Routine)on Spine Lumbar (Routine) [facility] Imaging Services [address] [place], [place] [address] Spine Lumbar (Routine) MR#: [id number] Acct: [id number] Name: POLINA GIRON Rep #: [id number] : 1990 F 34 From: Kennedy Raygoza MD PCP: Dr. Nataliya Gomez MD Status: REG CLI Study: Spine Lumbar (Routine) Date of Exam: 11/02/24 Exam# [id number] Ordering Dr: Nataliya Gomez MD PROCEDURE: SPINE [...] without direct nerve root compression Reading Location: [facility] CC: Dr. Nataliya Gomez MD Timber Appraiser: Signed Normal [facility] ANCAon 11-01-2024 Atypical pANCA <1:20 Normal Neg:<1:20 [facility] Comment on above: Order Comment: Test( s) 775215-Hnqtabdolwsrmm; 778820-Zeumonosiaa; 554925-Cjxmgoihfuy developed and its performance characteristicsdetermined by [employer]. It has not been cleared or approvedby the Food and Drug Administration. Result Comment: The atypical pANCA pattern has been observed in a significant percentage of patients with ulcerative colitis, primary sclerosing cholangitis and autoimmune hepatitis. Performed By: #### L 400.7600, M100.0500, L400.0001, M100.677 #### [facility] [address] [place], [place], [address] Cytoplasmic Ab <1:20 Normal Neg:<1:20 [facility] Comment on above: Order Comment: Test( s) 028967-Kmnuygadckmnei; 010157-Lvqwyiicrzo; 276124-Ydwcosctuvw developed and its performance characteristicsdetermined by [employer]. It has not been cleared or approvedby the Food and Drug Administration. Performed By: #### L 400.7600, M100.0500, L400.0001, M100.677 #### [facility] [address] [place], [address] Perinuclear Ab. <1:20 Normal Neg:<1:20 [facility] Comment on above: Order Comment: Test( s) 069294-Hyhlzdgddewmwd; 188873-Cttduyxaofu; 748951-Cndarvidpsj developed and its performance characteristicsdetermined by [employer]. It has not been cleared or approvedby [...] up testing of positive sera with both TN- 3 and MPO-ANCA enzyme immunoassays. As many as 5% serum samples are positive only by EIA. Ref. AM J Clin Pathol 1999;111:507-513. Performed By: #### L 400.7600, M100.0500, L400.0001, M100.677 #### [facility] [address] [place], [address] Catecholamines, Plasmaon DOPAMINE 12.9 pg/mL Normal 0.0-36.7 [facility] Comment on above: Order Comment: Test( s) 233430-Perulkadmitblt; 613945-Pitwpfpjprc; 706545-Vctcmifdesj developed and its performance characteristicsdetermined by [employer]. It has not been cleared or approvedby the Food and Drug Administration. Performed By: #### L 400.7600, M100.0500, L400.0001, M100.677 #### [facility] [address] [place], [address] EPINEPHRINE 27.5 pg/mL Normal 0.0-55.4 [facility] Comment on above: Order Comment: Test( s) 290675-Cwkguhcqalkzqx; 382510-Frhqlogwbuv; 977523-Kqgmggfhkuz developed and its performance characteristicsdetermined by [employer]. It has not been cleared or approvedby the Food and Drug Administration. Performed By: #### L 400.7600, M100.0500, L400.0001, M100.677 #### [facility] [address] [place], [address] NOREPINEPHRINE 529 pg/mL Abnormal 115-524 [facility] Comment on above: Order Comment: Test( s) 649047-Pcxzrnbcnsljmb; 158507-Hdasxndztth; 423952-Csxztquilwd developed and its performance characteristicsdetermined by [employer]. It has not been cleared or approvedby the Food and Drug Administration. Performed By: #### L 400.7600, M100.0500, L400.0001, M100.677 #### [facility] [address] [place], [address] Celiac Disease Profileon ENDOMYSIAL IGA Negative Normal Negative [facility] Comment on above: Order Comment: Test( s) 248002-Mmrapupxrxcozf; 133646-Leryyyffaha; 012110-Fawnvbzbdic developed and its performance characteristicsdetermined by [employer]. It has not been cleared or approvedby the Food and Drug Administration. Performed By: #### L 400.7600, M100.0500, L400.0001, M100.677 #### [facility] [address] [place], [place], [address] tTG IGA <2 Normal 0-3 [facility] Comment on above: Order Comment: Test( s) 742171-Xnwoomxlllobnm; 574821-Zywsnjeyvyc; 315861-Mbiqxjuatez developed and its performance characteristicsdetermined by [employer]. It has not been cleared or approvedby the Food and Drug Administration. Result Comment: Nega tive 0 - 3 Weak Positive 4 - 10 Positive >10 Tissue Transglutaminase (tTG) has been identified as the endomysial antigen. Studies have demonstr- ated that endomysial IgA antibodies have over 99% specificity for gluten sensitive enteropathy. Performed By: #### L 400.7600, M100.0500, L400.0001, M100.677 #### [facility] [address] [place], [address] Erythropoietinon 11-01-2024 ERYTHROPOIETIN 9.0 mIU/mL Normal 2.6-18.5 [facility] Comment on above: Order Comment: Test( s) 507885-Gxuilnnvptmeoe; 544466-Fcxqlylpnwq; 594760-Qyyistsnkzb developed and its performance characteristicsdetermined by [employer]. It has not been cleared or approvedby the Food and Drug Administration. Result Comment: Vasquez man Ember UniCel DxI 800 Immunoassay System Values obtained with different assay methods or kits cannot be used interchangeably. Results cannot be interpreted as absolute evidence of the presence or absence of malignant disease. Performed By: #### L 400.7600, M100.0500, L400.0001, M100.677 #### [facility] [address] [place], [address] Gastrin, Serumon 11-01-2024 GASTRIN 318 pg/mL High 0-115 [facility] Comment on above: Order Comment: Test( s) 451078-Vmnutylkskjsik; 970579-Iimvzacdkov; 897831-Xyjlwkjbjpg developed and its performance characteristicsdetermined by [employer]. It has not been cleared or approvedby the Food and Drug Administration. Result Comment: [employer] Immulite 2000 Immunochemiluminometric assay (ICMA) Values obtained with different assay methods or kits cannot be used interchangeably. Results cannot be interpreted as absolute evidence of the presence or absence of malignant disease. Performed By: #### L 400.7600, M100.0500, L400.0001, M100.677 #### [facility] [address] [place], [address] Hepatitis Panel Acuteon 05- HEP B CORE,IgM Negative Normal Negative [facility] Comment on above: Order Comment: Test( s) 282967-Qfopiwseubxpgg; 479741-Tdqiqdcziqn; 272673-Fbujeaofptk developed and its performance characteristicsdetermined by [employer]. It has not been cleared or approvedby the Food and Drug Administration. Performed By: #### L 400.7600, M100.0500, L400.0001, M100.677 #### [facility] [address] [place], [address] HEP B SURF AG Negative Normal Negative [facility] Comment on above: Order Comment: Test( s) 352181-Fdngpaawcyzdap; 624512-Hlwlozhowbt; 637154-Kzrkvqpmbbg developed and its performance characteristicsdetermined by [employer]. It has not been cleared or approvedby the Food and Drug Administration. Performed By: #### L 400.7600, M100.0500, L400.0001, M100.677 #### [facility] [address] [place], [address] HEP C VIRUS AB Non-Reactive Normal Non Reactive [facility] Comment on above: Order Comment: Test( s) 288250-Qnsbrmcpzwagie; 486697-Hcesgmuxzry; 798074-Mbnnqhjofta developed and its performance characteristicsdetermined by [employer] [employer]. It has not been cleared or approvedby the Food and Drug Administration. Performed By: #### L 400.7600, M100.0500, L400.0001, M100.677 #### [facility] [address] [place], [address] HEPATITIS A-IgM Negative Normal Negative [facility] Comment on above: Order Comment: Test( s) 985715-Wpxndusoktfera; 523969-Blulrqotalx; 962899-Wqqpjuineit developed and its performance characteristicsdetermined by [employer]. It has not been cleared or approvedby the Food and Drug Administration. Result Comment: A ne gative anti-HAV IgM result suggests no recent or current HAV infection. Performed By: #### L 400.7600, M100.0500, L400.0001, M100.677 #### [facility] [address] [place], [address] ADELE + Protein Elect, Serumon 11-01-2024 Albumin [Mass/Vol] 4.0 g/dL Normal 2.9-4.4 [facility] Comment on above: Order Comment: Test( s) 299190-Inuvaurlynnoxj; 454647-Xucdbnkdenx; 651942-Fofxpwufyvt developed and its performance characteristicsdetermined by [employer]. It has not been cleared or approvedby the Food and Drug Administration.N Performed By: #### L 400.7600, M100.0500, L400.0001, M100.677 #### [facility] [address] [place], [address] Albumin/Globulin [Mass ratio] 1.2 {ratio} Normal 0.7-1.7 [facility] Comment on above: Order Comment: Test( s) 893041-Caepvilzojfzlg; 079011-Ntdgmhuwfie; 076929-Iabukksuzzz developed and its performance characteristicsdetermined by [facility]. It has not been cleared or approvedby the Food and Drug Administration.N Performed By: #### L 400.7600, M100.0500, L400.0001, M100.677 #### [facility] [address] [place], [address] GVOPV-5-RLWX 0.3 g/dL Normal 0.0-0.4 [facility] Comment on above: Order Comment: Test( s) 715338-Pwdozfmnjvrcrs; 166190-Wnroresjbkt; 258361-Blbjbbypyux developed and its performance characteristicsdetermined by [facility]. It has not been cleared or approvedby the Food and Drug Administration.N Performed By: #### L 400.7600, M100.0500, L400.0001, M100.677 #### [facility] [address] [place], [address] ELTWA-3-UCFX 0.9 g/dL Normal 0.4-1.0 [facility] Comment on above: Order Comment: Test( s) 912153-Ahdzoecxberpmy; 183930-Zxmcoxfvafp; 651120-Stzdynqvawe developed and its performance characteristicsdetermined by [facility]. It has not been cleared or approvedby the Food and Drug Administration.N Performed By: #### L 400.7600, M100.0500, L400.0001, M100.677 #### [facility] [address] [place], [address] BETA GLOBULIN 1.2 g/dL Normal 0.7-1.3 [facility] Comment on above: Order Comment: Test( s) 505719-Hrlubehqgvkggf; 143160-Xzqklqztpfq; 123767-Brwlbwtmmdu developed and its performance characteristicsdetermined by [facility]. It has not been cleared or approvedby the Food and Drug Administration.N Performed By: #### L 400.7600, M100.0500, L400.0001, M100.677 #### [facility] [address] [place], [address] GAMMA GLOBULIN 1.0 g/dL Normal 0.4-1.8 [facility] Comment on above: Order Comment: Test( s) 940544-Kzsilwysvbomat; 756592-Pzwadbtqipp; 793899-Tvftavpfpyp developed and its performance characteristicsdetermined by [facility]. It has not been cleared or approvedby the Food and Drug Administration.N Performed By: #### L 400.7600, M100.0500, L400.0001, M100.677 #### [facility] [address] [place], [address] Globulin (S) [Mass/Vol] 3.4 g/dL Normal 2.2-3.9 [facility] Comment on above: Order Comment: Test( s) 876578-Ppjxjkkgnhvggh; 991895-Nhtzpjqprpd; 887260-Fwhxzmagpdl developed and its performance characteristicsdetermined by [employer]. It has not been cleared or approvedby the Food and Drug Administration.N Performed By: #### L 400.7600, M100.0500, L400.0001, M100.677 #### [facility] [address] [place], [address] ADELE RESULT,S Comment Normal . [facility] Comment on above: Order Comment: Test( s) 358619-Gvvnygebegxttl; 090323-Tnnwaurzugq; 404419-Tfsfntbrhmy developed and its performance characteristicsdetermined by [employer]. It has not been cleared or approvedby the Food and Drug Administration.N Result Comment: No m onoclonality detected. Performed By: #### L 400.7600, M100.0500, L400.0001, M100.677 #### [facility] [address] [place], [address] IMMUNOGLOB A QN 104 mg/dL Normal 87-352 [facility] Comment on above: Order Comment: Test( s) 819800-Djesbqhskodnux; 499935-Mxpeoiwpuif; 786498-Vukyfuqttpk developed and its performance characteristicsdetermined by [employer]. It has not been cleared or approvedby the Food and Drug Administration.N Performed By: #### L 400.7600, M100.0500, L400.0001, M100.677 #### [facility] [address] [place], [address] IMMUNOGLOB G QN 998 mg/dL Normal 586-1602 [facility] Comment on above: Order Comment: Test( s) 690185-Vpkjlrjwdekpff; 652384-Jsnvvocirpt; 419834-Qlkwwjwzsbv developed and its performance characteristicsdetermined by [facility]. It has not been cleared or approvedby the Food and Drug Administration.N Performed By: #### L 400.7600, M100.0500, L400.0001, M17 #### [facility] [address] [place], [address] IMMUNOGLOB M QN 69 mg/dL Normal 26-217 [facility] Comment on above: Order Comment: Test( s) 230037-Vdzemadkkngcsj; 193343-Ldvojuilonq; 869502-Jrzbpxupxzj developed and its performance characteristicsdetermined by [facility]. It has not been cleared or approvedby the Food and Drug Administration.N Performed By: #### L 400.7600, M100.0500, L400.0001, M100.677 #### [facility] [address] [place], [address] M-Villa Not Observed Normal Not Observed [facility] Comment on above: Order Comment: Test( s) 690826-Onfwxvepapzeas; 727681-Qrwdnkgbkmw; 517300-Qbrcqfzaxla developed and its performance characteristicsdetermined by [facility]. It has not been cleared or approvedby the Food and Drug Administration.N Performed By: #### L 400.7600, M100.0500, L400.0001, M100.677 #### [facility] [address] [place], [address] NOTE: Comment Normal . [facility] Comment on above: Order Comment: Test( s) 661430-Mqqwbvgelnyakd; 829301-Qchaulgaihj; 608386-Wkqrkrjvqyy developed and its performance characteristicsdetermined by [facility]. It has not been cleared or approvedby the Food and Drug Administration.N Result Comment: Prot ein electrophoresis scan will follow via computer, mail, or double backer delivery. Performed By: #### L 400.7600, M100.0500, L400.0001, M100.677 #### [facility] [address] [place], [place], [address] Protein [Mass/Vol] 7.4 g/dL Normal 6.0-8.5 [facility] Comment on above: Order Comment: Test( s) 901685-Ohvypohpomvjfp; 859469-Qcxcbmzbzfa; 080516-Bzlhiztgohd developed and its performance characteristicsdetermined by [facility]. It has not been cleared or approvedby the Food and Drug Administration.N Performed By: #### L 400.7600, M100.0500, L400.0001, M100.677 #### [facility] [address] [place], [address] Immunoglobulins G/A/M/Cy IMMUNOGLOB E QN 4 IU/mL Low 6-495 [facility] Comment on above: Order Comment: Test( s) 181057-Domfllufdvgtkw; 301402-Pknpdqzrbgl; 024180-Eyzcwxpvfkw developed and its performance characteristicsdetermined by [facility]. It has not been cleared or approvedby the Food and Drug Administration.N Performed By: #### L 400.7600, M100.0500, L400.0001, M100.677 #### [facility] [address] [place], [address] JAK2 Mutation Analysison JAK2 COMMENT Comment Normal . [facility] Comment on above: Order Comment: Test( s) 921079-Ygdefvfmadwuef; 664887-Fwjpadsykhv; 963114-Vzlebmqvxvv developed and its performance characteristicsdetermined by [employer]. It has not been cleared or approvedby the Food and Drug Administration. Result Comment: Lani Molina, PhD, [facility] Director, Molecular Oncology [facility] [place] [address] This test was developed and its performance characteristics determined by [facility]. It has not been cleared or approved by the Food and Drug Administration. Performed By: #### L 400.7600, M100.0500, L400.0001, M100.677 #### [facility] [address] [place], [place], [address] JAK2 COMMENT 2 Comment Normal . [facility] Comment on above: Order Comment: Test( s) 397454-Jabyljfqppkodc; 567872-Ptzkntayuxw; 455621-Zcabakjkzhb developed and its performance characteristicsdetermined by [employer] [facility] center. It has not been cleared or approvedby the Food and Drug Administration. Result Comment: JAK2 is a cytoplasmic tyrosine kinase with a powell role in signal transduction from multiple hematopoietic growth factor receptors. A point mutation within exon 14 of the JAK2 gene ([id number]) encoding a valine to phenylalanine substitution at [...] type (WT) and JAK2 mutant V617F. The [employer] Absolute Quantitation software will compare the patient specimen valuse to the standard curves and generate percent values for wild type and mutant type. In vitro studies have indicated that this assay has an analytical sensitivity of 1%. References: Jaime EJ, Berto PASTOR, Bakari PJ, et al. Acquired mutation of the tyrosine kinase JAK2 in human myeloproliferative disorders. Lancet. 2005 Aug 21; 365(6163):8327-5331. Perry C, David V, Lorrie Waller MELBA. 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 Nature. 2005 Sep 30; 123(6789):0177-3843. Pierce R, Fracisco F, Myles , et al. A gain-of- function mutation of JAK2 in myeloproliferative disorders. N Engl J Med. 2005 Sep 30; 35217):1554-3499. Performed By: #### L 400.7600, M100.0500, L400.0001, M100.677 #### [facility] [address] [place], [place], [id number] JAK2 MUT QUAL Comment Normal . [facility] Comment on above: Order Comment: Test( s) 112777-Izhreyaokksyrc; 423529-Fwnmgdkrqzu; 345883-Bnknfzfycqz developed and its performance characteristicsdetermined by [employer]. It has not been cleared or approvedby [...] with these disorders. Performed By: #### L 400.7600, M100.0500, L400.0001, M100.677 #### [facility] [address] [place], [place], [address] L2100.0000on 11-01-2024 ACCA 10 units Normal 0-90 [facility] Comment on above: Order Comment: Test( s) 214020-Cvrcorzhofsyzz; 395213-Vmorwkpqlai; 793548-Zyyzrinzuze developed and its performance characteristicsdetermined by [employer]. It has not been cleared or approvedby the Food and Drug Administration. Result Comment: Nega tive: <80 Equivocal: 80-90 Positive: >90 Performed By: #### L 400.7600, M100.0500, L400.0001, M100.677 #### [facility] [address] [place], [address] ALCA 3 units Normal 0-60 [facility] Comment on above: Order Comment: Test( s) 290693-Jdirixxhyejivj; 993980-Zqzpacykzdn; 545865-Qaweddcveut developed and its performance characteristicsdetermined by [facility]. It has not been cleared or approvedby the Food and Drug Administration. Result Comment: Nega tive:<55 Equivocal: 55-60 Positive: >60 Performed By: #### L 400.7600, M100.0500, L400.0001, M100.677 #### [facility] [address] [place], [address] AMCA 8 units Normal 0-100 [facility] Comment on above: Order Comment: Test( s) 960463-Wusbgkzlmlepta; 801228-Excdjjivpck; 624180-Jpwagsurbdg developed and its performance characteristicsdetermined by [facility]. It has not been cleared or approvedby the Food and Drug Administration. Result Comment: Nega tive: <90 Equivocal: 90-100 Positive: >100 This test was developed and its performance characteristics determined by [facility]. It has not been cleared or approved by the Food and Drug Administration. The FDA has determined that such clearance or approval is not necessary. Performed By: #### L 400.7600, M100.0500, L400.0001, M100.677 #### [facility] [address] [place], [address] Atypical pANCA Negative Normal Negative [facility] Comment on above: Order Comment: Test( s) 146140-Cglhzuhvapsyxb; 233095-Mnogutubjhf; 254195-Zscbnumdrrl developed and its performance characteristicsdetermined by [facility]. It has not been cleared or approvedby the Food and Drug Administration. Performed By: #### L 400.7600, M100.0500, L400.0001, M100.677 #### [facility] [address] [place], [place], [address] COMMENT Comment Normal . [facility] Comment on above: Order Comment: Test( s) 639131-Uxfbkhcghmybpg; 428556-Blcbtyhtdkg; 334834-Dehgjdcmbuq developed and its performance characteristicsdetermined by [employer]. It has not been cleared or approvedby the Food and Drug Administration. Result Comment: Angeles volodymyr is not suggestive of Inflammatory Bowel Disease Performed By: #### L 400.7600, M100.0500, L400.0001, M100.677 #### [facility] [address] [place], [place], [address] Result Comment: Not infected with HCV unless early or acute infection is suspected (which may be delayed in an immunocompromised individual), or other evidence exists to indicate HCV infection. Dalton 4 units Normal 0-50 [facility] Comment on above: Order Comment: Test( s) 113263-Qcgxwjbrdgpxps; 772534-Xvohsgweqjg; 099829-Kwdooiewejj developed and its performance characteristicsdetermined by [facility]. It has not been cleared or approvedby the Food and Drug Administration. Result Comment: Nega tive: <45 Equivocal: 45-50 Positive: >50 Performed By: #### L 400.7600, M100.0500, L400.0001, M100.677 #### [facility] [address] [place], [place], [address] L3100.4810on 11-01-2024 Chromogranin A 87.6 ng/mL Normal 0.0-101.8 [facility] Comment on above: Order Comment: Test( s) 975566-Lqxemieoyyyiju; 098655-Ywyhgaddtne; 138791-Rkumkkzufqq developed and its performance characteristicsdetermined by [employer]. It has not been cleared or approvedby the Food and Drug Administration. Result Comment: Packaging Sales Representative mogranin A performed by [employer]/1-4 All [employer] methodology Values obtained with different assay methods or kits cannot be used interchangeably. Performed at: [address], [place] [id number] Cable Weaver: Fortunato Santiago PhD, Phone: [phone] Performed at: [place] - [facility] [address] [id number] Cable Weaver: Dia Marquez MD, Phone: [phone] Performed at: [place] [facility] [address] [facility], [place], [place] [id number] Cable Weaver: Collins Doran [facility], Phone: [phone] Performed at: [place] - [facility] [address] [facility], [place] [id number] Cable Weaver: Collins Doran [facility], Phone: [phone] Performed By: #### L 400.7600, M100.0500, L400.0001, M100.677 #### [facility] [address] [place], [address] FREIDA Comprehensive Panelon ANTI-DNA (DS)AB 1 IU/mL Normal 0-9 [facility] Comment on above: Result Comment: Nega tive <5 Equivocal 5 - 9 Positive >9 Performed By: #### L 400.7600, M100.0500, L400.0001, M100.677 #### [facility] [address] [place], [address] ANTI-SS-A < 0.2 Normal 0.0-0.9 [facility] Comment on above: Performed By: #### L 400.7600, M100.0500, L400.0001, M100.677 #### [facility] [address] [place], [address] ANTI-SS-B < 0.2 Normal 0.0-0.9 [facility] Comment on above: Performed By: #### L 400.7600, M100.0500, L400.0001, M100.677 #### [facility] [address] [place], [address] Allergen, Food Profileon CLAM <0.10 Normal Class 0 [facility] Comment on above: Performed By: #### L 400.7600, M100.0500, L400.0001, M100.677 #### [facility] [address] [place], [address] CODFISH <0.10 Normal Class 0 [facility] Comment on above: Performed By: #### L 400.7600, M100.0500, L400.0001, M1.677 #### [facility] [address] [place], [address] COMMENT Comment Normal . [facility] Comment on above: Result Comment: Mirela ahn of Specific IgE Class Description of Class ----- < 0.10 0 Negative 0.10 - 0.31 0/I Equivocal/Low 0.32 - 0.55 I Low 0.56 - 1.40 II Moderate 1.41 - 3.90 III High 3.91 - 19.00 IV Very High 19.01 - 100.00 V Very High >100.00 Very High Performed By: #### L 400.7600, M100.0500, L400.0001, M100.677 #### [facility] [address] [place], [address] CORN <0.10 Normal Class 0 [facility] Comment on above: Performed By: #### L 400.7600, M100.0500, L400.0001, M100.677 #### [facility] [address] [place], [address] EGG, WHITE <0.10 Normal Class 0 [facility] Comment on above: Performed By: #### L 400.7600, M100.0500, L400.0001, M100.677 #### [facility] [address] [place], [address] MILK (COW) <0.10 Normal Class 0 [facility] Comment on above: Performed By: #### L 400.7600, M100.0500, L400.0001, M100.677 #### [facility] [address] [place], [address] PEANUT <0.10 Normal Class 0 [facility] Comment on above: Performed By: #### L 400.7600, M100.0500, L400.0001, M100.677 #### [facility] [address] [place], [address] SCALLOP <0.10 Normal Class 0 [facility] Comment on above: Performed By: #### L 400.7600, M100.0500, L400.0001, M100.677 #### [facility] [address] [place], [address] SESAME SEED <0.10 Normal Class 0 [facility] Comment on above: Result Comment: Perf ormed at: [facility] [address] [id number] Cable Weaver: Fortunato Santiago PhD, Phone: [phone] Performed at: [facility] [address] [id number] Cable Weaver: Dia Marquez MD, Phone: [phone] Performed By: #### L 400.7600, M100.0500, L400.0001, M100.677 #### [facility] [address] [place], [address] SHRIMP <0.10 Normal Class 0 [facility] Comment on above: Performed By: #### L 400.7600, M100.0500, L400.0001, M100.677 #### [facility] [address] [place], [address] SOYBEAN <0.10 Normal Class 0 [facility] Comment on above: Performed By: #### L 400.7600, M100.0500, L400.0001, M100.677 #### [facility] [address] [place], [address] WALNUT,(Food) <0.10 Normal Class 0 [facility] Comment on above: Performed By: #### L 400.7600, M100.0500, L400.0001, M100.677 #### [facility] [address] [place], [address] WHEAT <0.10 Normal Class 0 [facility] Comment on above: Performed By: #### L 400.7600, M100.0500, L400.0001, M100.677 #### [facility] [address] [place], [address] [id number] 10-29-2024 [id number] Entered in error Normal [facility] Absolute lymphocyte countOrd ered By: Moses Montalvo on 10-24-2024 Lymphocytes Auto (Unsp spec) [#/Vol] 3.24 10*3/uL 0.83-4.51 [facility] Absolute neutrophil countOrd ered By: Moses Montalvo on 10-24-2024 Neutrophils (Bld) [#/Vol] 8.3 10*3/uL High 2.0-7.7 [facility] Albumin Elph [Mass/Vol]Order ed By: Moses Montalvo on 10-24-2024 Albumin [Mass/Vol] 4.0 g/dL 2.9-4.4 [facility] Amylaseon 10-24-2024 CYNTHIA 52 U/L Normal 28-100 [facility] Comment on above: Performed By: #### L 400.7600, M100.0500, L400.0001, M100.677 #### [facility] [address] [place], [address] Anion gap in Serum or Plasma Ordered By: Moses Montalvo on 10-24-2024 Anion gap [Moles/Vol] 14 mmol/L 5-15 [facility] Automated lymphocyte count a s percentage of total leukocytesOrdered By: Moses Montalvo on 10-24-2024 Lymphocytes/100 WBC Auto (Unsp spec) 26.4 % 19-41 [facility] BUN/creatinine ratioOrdered By: Moses Montalvo on 10-24-2024 Urea nitrogen/Creatinine [Mass ratio] 11.9 mg/mg 10-20 [facility] Basophil percentageOrdered B y: Moses Montalvo on 10-24-2024 Basophils/100 WBC (Bld) 0.2 % 0-1 [facility] Bilirubin, totalOrdered By: Moses Montalvo on 10-24-2024 Bilirubin [Mass/Vol] 0.28 mg/dL 0.00-1.30 [facility] CBC W/Diff, Automatedon 10-04 Absolute Lymph 3.24 X10 3/uL Normal 0.83-4.51 [facility] Comment on above: Performed By: #### L 400.7600, M100.0500, L400.0001, M100.677 #### [facility] [address] [place], [address] Absolute Neut 8.3 X10 3/uL High 2.0-7.7 [facility] Comment on above: Performed By: #### L 400.7600, M100.0500, L400.0001, M100.677 #### [facility] [address] [place], [address] Basophils/100 WBC (Bld) 0.2 % Normal 0-1 [facility] Comment on above: Performed By: #### L 400.7600, M100.0500, L400.0001, M100.677 #### [facility] [address] [place], [address] Eosinophils/100 WBC (Bld) 0.1 % Normal 0-5 [facility] Comment on above: Performed By: #### L 400.7600, M100.0500, L400.0001, M100.677 #### [facility] [address] [place], [address] Erythrocyte distribution width (RBC) [Ratio] 13.2 % Normal 11.6-14.6 [facility] Comment on above: Performed By: #### L 400.7600, M100.0500, L400.0001, M100.677 #### [facility] [address] [place], [address] Hematocrit (Bld) [Volume fraction] 43.7 % Normal 37-47 [facility] Comment on above: Performed By: #### L 400.7600, M100.0500, L400.0001, M100.677 #### [facility] [address] [place], [address] Hemoglobin (Bld) [Mass/Vol] 14.5 g/dL Normal 12.0-15.0 [facility] Comment on above: Performed By: #### L 400.7600, M100.0500, L400.0001, M100.677 #### [facility] [address] [place], [address] IG% 0.200 Normal 0.0-0.9 [facility] Comment on above: Result Comment: IG% - Immature Granulocytes (promyelocytes, myelocytes and metamyelocytes) > 1% indicates that a LEFT SHIFT is Present. Performed By: #### L 400.7600, M100.0500, L400.0001, M100.677 #### [facility] [address] [place], [address] Lymphocytes/100 WBC (Bld) 26.4 % Normal 19-41 [facility] Comment on above: Performed By: #### L 400.7600, M100.0500, L400.0001, M100.677 #### [facility] [address] [place], [address] MCH (RBC) [Entitic mass] 33.0 pg High 27.0-32.0 [facility] Comment on above: Performed By: #### L 400.7600, M100.0500, L400.0001, M100.677 #### [facility] [address] [place], [address] MCHC (RBC) [Mass/Vol] 33.2 g/dL Normal 32-36 [facility] Comment on above: Performed By: #### L 400.7600, M100.0500, L400.0001, M100.677 #### [facility] [address] [place], [address] MCV (RBC) [Entitic vol] 99.5 fL High 81-99 [facility] Comment on above: Performed By: #### L 400.7600, M100.0500, L400.0001, M100.677 #### [facility] [address] [place], [address] Monocytes/100 WBC (Bld) 5.1 % Normal 0-10 [facility] Comment on above: Performed By: #### L 400.7600, M100.0500, L400.0001, M100.677 #### [facility] [address] [place], [address] Neutrophils/100 WBC (Bld) 68.0 % Normal 47-70 [facility] Comment on above: Performed By: #### L 400.7600, M100.0500, L400.0001, M100.677 #### [facility] [address] [place], [address] Nucleated RBC (Bld) [#/Vol] 0 10*3/uL Normal 0-5 [facility] Comment on above: Performed By: #### L 400.7600, M100.0500, L400.0001, M100.677 #### [facility] [address] [place], [address] Platelet mean volume (Bld) [Entitic vol] 9.9 fL Normal 6.2-12.0 [facility] Comment on above: Performed By: #### L 400.7600, M100.0500, L400.0001, M100.677 #### [facility] [address] [place], [address] Platelets (Bld) [#/Vol] 239 10*3/uL Normal 150-450 [facility] Comment on above: Performed By: #### L 400.7600, M100.0500, L400.0001, M100.677 #### [facility] [address] [place], [address] RBC (Bld) [#/Vol] 4.39 10*6/uL Normal 4.2-5.4 [facility] Comment on above: Performed By: #### L 400.7600, M100.0500, L400.0001, M100.677 #### [facility] [address] [place], [address] RDW SD 48.8 fl High 35.1-43.9 [facility] Comment on above: Performed By: #### L 400.7600, M100.0500, L400.0001, M100.677 #### [facility] [address] [place], [address] WBC (Bld) [#/Vol] 12.3 10*3/uL High 4.4-11.0 [facility] Comment on above: Performed By: #### L 400.7600, M100.0500, L400.0001, M100.677 #### [facility] [address] [place], [address] CPK Total, Creatine Kinaseon 10-24-2024 CPK TOTAL 187 U/L Normal 24-195 [facility] Comment on above: Performed By: #### L 400.7600, M100.0500, L400.0001, M100.677 #### [facility] [address] [place], [address] CRPon 10-24-2024 C-REACTIVE PROT < 3.00 Normal 0.0-3.0 [facility] Comment on above: Performed By: #### L 400.7600, M100.0500, L400.0001, M100.677 #### [facility] [address] [place], [address] Carbon dioxide, total [Moles /volume] in Central venous bloodOrdered By: Moses Montalvo on 10-24-2024 CO2 [Moles/Vol] 17.3 mmol/L Low 21.0-32.0 [facility] Chitobioside IgA antibody as sayOrdered By: Moses Montalvo on 10-24-2024 Chitobioside IgA IA Qn 10 units 0-90 [facility] Comment on above: Negative: <80 Equivo robert: 80-90 Positive: >90 Chloride assayOrdered By: Ra librado Montalvo on 10-24-2024 Chloride [Moles/Vol] 108 mmol/L 98-108 [facility] Comprehensive Metabolic Prof ilon 10-24-2024 Albumin [Mass/Vol] 4.4 g/dL Normal 3.5-5.0 [facility] Comment on above: Performed By: #### L 400.7600, M100.0500, L400.0001, M100.677 #### [facility] [address] [place], [address] Albumin/Globulin [Mass ratio] 1.5 {ratio} Normal 0.9-2.4 [facility] Comment on above: Performed By: #### L 400.7600, M100.0500, L400.0001, M100.677 #### [facility] [address] [place], [address] ALK PHOS 57 U/L Normal 35-104 [facility] Comment on above: Performed By: #### L 400.7600, M100.0500, L400.0001, M100.677 #### [facility] [address] [place], [address] ALT [Catalytic activity/Vol] 24 U/L Normal <=34 [facility] Comment on above: Performed By: #### L 400.7600, M100.0500, L400.0001, M100.677 #### [facility] [address] [place], [address] AST [Catalytic activity/Vol] 20 U/L Normal <=31 [facility] Comment on above: Performed By: #### L 400.7600, M100.0500, L400.0001, M100.677 #### [facility] [address] [place], [address] Bilirubin [Mass/Vol] 0.28 mg/dL Normal 0.00-1.30 [facility] Comment on above: Performed By: #### L 400.7600, M100.0500, L400.0001, M100.677 #### [facility] [address] [place], [address] BUN/CRE 11.9 RATIO Normal 10-20 [facility] Comment on above: Performed By: #### L 400.7600, M100.0500, L400.0001, M100.677 #### [facility] [address] [place], [address] Calcium [Mass/Vol] 9.0 mg/dL Normal 7.6-11.0 [facility] Comment on above: Performed By: #### L 400.7600, M100.0500, L400.0001, M100.677 #### [facility] [address] [place], [address] Chloride [Moles/Vol] 108 mmol/L Normal 98-108 [facility] Comment on above: Performed By: #### L 400.7600, M100.0500, L400.0001, M100.677 #### [facility] [address] [place], [address] CO2 [Moles/Vol] 17.3 mmol/L Low 21.0-32.0 [facility] Comment on above: Performed By: #### L 400.7600, M100.0500, L400.0001, M100.677 #### [facility] [address] [place], [address] Creatinine [Mass/Vol] 0.71 mg/dL Normal 0.70-1.20 [facility] Comment on above: Performed By: #### L 400.7600, M100.0500, L400.0001, M100.677 #### [facility] [address] [place], [address] GAP 14 Normal 5-15 [facility] Comment on above: Performed By: #### L 400.7600, M100.0500, L400.0001, M100.677 #### [facility] [address] [place], [address] GFR/1.73 sq M.predicted among non-blacks MDRD (S/P/Bld) [Vol rate/Area] 114 mL/min/{1.73_m2} Normal >60 [facility] Comment on above: Result Comment: mL/m in/1.73m2 CKD-EPI Creatinine Equation (2020) Performed By: #### L 400.7600, M100.0500, L400.0001, M100.677 #### [facility] [address] [place], [address] Globulin (S) [Mass/Vol] 2.9 g/dL Normal 2.2-4.2 [facility] Comment on above: Performed By: #### L 400.7600, M100.0500, L400.0001, M100.677 #### [facility] [address] [place], [address] Glucose [Mass/Vol] 116 mg/dL High 70-99 [facility] Comment on above: Performed By: #### L 400.7600, M100.0500, L400.0001, M100.677 #### [facility] [address] [place], [address] Potassium [Moles/Vol] 3.0 mmol/L Low 3.3-5.1 [facility] Comment on above: Performed By: #### L 400.7600, M100.0500, L400.0001, M100.677 #### [facility] [address] [place], [address] Sodium [Moles/Vol] 140 mmol/L Normal 133-145 [facility] Comment on above: Performed By: #### L 400.7600, M100.0500, L400.0001, M100.677 #### [facility] [address] [place], [address] T PROT 7.3 g/dL Normal 5.9-8.4 [facility] Comment on above: Performed By: #### L 400.7600, M100.0500, L400.0001, M100.677 #### [facility] [address] [place], [address] Urea nitrogen [Mass/Vol] 9 mg/dL Normal 4-19 [facility] Comment on above: Performed By: #### L 400.7600, M100.0500, L400.0001, M100.677 #### [facility] [address] [place], [address] Culture, Throaton 10-24-2024 CUT Normal throat lois isolated. No beta-hemolytic streptococcus isolated. Normal [facility] Comment on above: Performed By: #### L 400.7600, M100.0500, L400.0001, M100.677 #### [facility] [address] [place], [address] Eosinophil percentageOrdered By: Moses Montalvo on 10-24-2024 Eosinophils/100 WBC (Bld) 0.1 % 0-5 [facility] Erythrocyte Sed Rateon 10-24 SED RATE 11 mm/hr Normal 0-30 [facility] Comment on above: Performed By: #### L 400.7600, M100.0500, L400.0001, M100.677 #### [facility] [address] [place], [address] Erythrocyte distribution wid th ratioOrdered By: Moses Montalvo on 10-24-2024 Erythrocyte distribution width (RBC) [Ratio] 13.2 % 11.6-14.6 [facility] Erythrocyte distribution wid th standard deviationOrdered By: Moses Montalvo on 10-24-2024 Erythrocyte distribution width (RBC) [Ratio] 48.8 fl High 35.1-43.9 [facility] Erythrocyte sedimentation ra teOrdered By: Moses Montalvo on 10-24-2024 ESR (Bld) [Velocity] 11 mm/h 0-30 [facility] Gastrin, serumOrdered By: Ra librado Montalvo on 10-24-2024 Gastrin [Mass/Vol] 318 pg/mL High 0-115 [facility] Comment on above: Siemens Immulite 200 0 Immunochemiluminometric assay (ICMA)Values obtained with different assay methods or kits cannotbe used interchangeably. Results cannot be interpreted asabsolute evidence of the presence or absence of malignantdisease. Gastroenterology Visit Repor ton 10-24-2024 Gastroenterology Visit Report [facility] Gastroenterology [address] [place] [address] OFFICE VISIT Date of Service: 10/24/24 MR#: [id number] Acct: [id number] Name: POLINA GIRON Rep #: [id number] : 1990 Provider: Moses Montalvo DO Age/Sex: 34/F Location: [facility] Status: Signed Intake Vital Signs 12/21/23 10:27 [...] office today for initial consult. *BGI established 5.. pt reports long history of IBS; daily [...] - Unspecif (more content not included)... Normal [facility] Glomerular filtration rate ( GFR) estimation/1.73 sq m using serum, plasma, or whole bOrdered By: Moses Montalvo on 10-24-2024 GFR/1.73 sq M.predicted among non-blacks MDRD (S/P/Bld) [Vol rate/Area] 114 mL/min/{1.73_m2} >60 [facility] Comment on above: mL/min/1.73m2 CKD-EP I Creatinine Equation (2020) Hematocrit Auto (Bld) [Volum e fraction]Ordered By: Moses Montalvo on 10-24-2024 Hematocrit (Bld) [Volume fraction] 43.7 % 37-47 [facility] Hemoglobin measurementOrdere d By: Moses Montalvo on 10-24-2024 Hemoglobin (Bld) [Mass/Vol] 14.5 g/dL 12.0-15.0 [facility] IgEOrdered By: Moses soto on 10-24-2024 IgE 4 IU/mL Low 6-495 [facility] Immature granulocytes/100 WB C Auto (Bld)Ordered By: Moses Montalvo on 10-24-2024 Immature granulocytes/100 WBC (Bld) 0.200 % 0.0-0.9 [facility] Comment on above: IG% - Immature Granu locytes (promyelocytes, myelocytes and metamyelocytes) > 1% indicates that a LEFT SHIFT is Present. Interpretation of serum or p lasma protein pattern by immunofixation (narrative resultOrdered By: Moses Montalvo on 10-24-2024 Protein Fractions Immunofixation Joey [Interp] Not Observed g/dL Not Observed [facility] - Chemistry and C hemistry - challengeOrdered By: Moses Montalvo on 10-24-2024 AST [Catalytic activity/Vol] 20 U/L <32 [facility] - Miscellaneous t estsOrdered By: Moses Montalvo on 05-22-2025 Laboratory comment Joey (Report) Comment . [facility] Comment on above: Pattern is not sugge stive of Inflammatory Bowel Disease Service comment (Unsp spec) [Interp] Comment . [facility] Comment on above: Levels of Specific I gE Class Description of Class ----- < 0.10 0 Negative 0.10 - 0.31 0/I Equivocal/Low 0.32 - 0.55 I Low 0.56 - 1.40 II Moderate 1.41 - 3.90 III High 3.91 - 19.00 IV Very High 19.01 - 100.00 V Very High >100.00 Very High Laminaribioside carbohydrate IgG antibody assayOrdered By: Moses Montalvo on 10-24-2024 Laminaribioside IgG IA Qn 3 units 0-60 [facility] Comment on above: Negative:<55 Equivoc al: 55-60 Positive: >60 Lipaseon 10-24-2024 Lipase [Catalytic activity/Vol] 28 U/L Normal 13-75 [facility] Comment on above: Result Comment: Kait guy note: LIPASE revised reference range effective 22. New Lipase methodology. Expected to produce lower values than the previous assay method. NEW Reference Range: 13 - 75 U/L Performed By: #### L 400.7600, M100.0500, L400.0001, M100.677 #### [facility] [address] [place] [address], [id number] Lipase measurementOrdered By : Moses Montalvo on 10-24-2024 Lipase [Catalytic activity/Vol] 28 U/L 13-75 [facility] Comment on above: Please note:LIPASE r evised reference range effective 22. New Lipase methodology. Expected to produce lower values than the previous assay method. NEW Reference Range: 13 - 75 U/L MCV (mean corpuscular volume ) determinationOrdered By: Moses Montalvo on 10-24-2024 MCV (RBC) [Entitic vol] 99.5 fL High 81-99 [facility] Magnesiumon 05-22-2025 Magnesium [Mass/Vol] 2.0 mg/dL Normal 1.5-2.2 [facility] Comment on above: Performed By: #### L 400.7600, M100.0500, L400.0001, M100.677 #### [facility] [place], [address] Magnesium measurement (mass/ volume)Ordered By: Moses Montalvo on 10-24-2024 Magnesium (Unsp spec) [Mass/Vol] 2.0 mg/dL 1.5-2.2 [facility] Mean corpuscular hemoglobin (MCH) determinationOrdered By: Moses Montalvo on 10-24-2024 MCH (RBC) [Entitic mass] 33.0 pg High 27.0-32.0 [facility] Mean corpuscular hemoglobin concentration (MCHC) determinationOrdered By: Moses Montalvo on 10-24-2024 MCHC (RBC) [Mass/Vol] 33.2 g/dL 32-36 [facility] Mean platelet volume determi nationOrdered By: Moses Montalvo on 10-24-2024 Platelet mean volume (Bld) [Entitic vol] 9.9 fL 6.2-12.0 [facility] Monocyte percentageOrdered B y: Moses Montalvo on 10-24-2024 Monocytes/100 WBC (Bld) 5.1 % 0-10 [facility] Neutrophil percentageOrdered By: Moses Montalvo on 10-24-2024 Neutrophils/100 WBC (Bld) 68.0 % 47-70 [facility] No Panel InformationOrdered By: Moses Montalvo on 10-24-2024 Addendum Document Comment . [facility] Comment on above: Protein electrophore sis scan will follow via computer,mail, or double backer delivery. Hepatitis C Antibody Comment Comment . [facility] Comment on above: Not infected with HC V unless early or acute infection issuspected (which may be delayed in an immunocompromisedindividual), or other evidence exists to indicate HCVinfection. JAK2 Mutation Comment . [facility] Comment on above: Lani Molina, PhD, FACM GDirector, Molecular OncologyLabco Center for Molecular Biology and PathologyResEstherville, [place] [phone] test was developed and its performance characteristicsdetermined by [employer]. It has not been cleared orapproved by the Food and Drug Administration. JAK2 V617F Reviewed By Comment . [facility] Comment on above: JAK2 is a cytoplasmi c tyrosine kinase with a powell role insignal transduction from multiple hematopoietic growthfactor receptors. A point mutation within exon 14 of theJAK2 gene ([id number]) encoding a valine to phenylalaninesubstitution at position 617 of the JAK2 protein (V617F)has been identified in most patients with polycythemiavera, and in about half of those with either essentialthrombocythemia or idiopathic myelofibrosis. The V617F hasalso been detected, although infrequently, in other myeloiddisorders such as chronic myelomonocytic leukemia andchronic neutrophilic luekemia. V617F is an acquiredmutation that alters a highly conserved valine present inthe negative regulatory JH2 domain of the JAK2 proteinand is predicted to dysregulate kinase activity.Methodology:Total genomic DNA was extracted and subjected to TaqManreal-time PCR amplification/detection. Two amplificationproducts per sample were monitored by real-time PCR usingprimers/probes specific to JAK2 wild type (WT) and NQG1yyxjif V617F. The [employer] Absolute Quantitation softwarewill compare the patient specimen valuse to the standardcurves and generate percent values for wild type andmutant type. In vitro studies have indicated that thisassay has an analytical sensitivity of 1%.References:Jaime EJ, Berto LM, Bakari PJ, et al. Acquiredmutation of the tyrosine kinase JAK2 in humanmyeloproliferative disorders. Lancet. 2005 Aug 21;365(0210):9745-5455. Perry Vizcaino, David V, Lorrie Waller MELBA. Aunique clonal JAK2 mutation leading to constitutivesignaling causes polycythaemia vera. Nature. 2005 Sep 30;387(4747):7444-8270.Pierce R, Fracisco F, Myles , et al. A gwux-eo-jblewyvu mutation of JAK2 in myeloproliferative disorders.N Engl J Med. 2005 Sep 30; 352(17):5346-1522. Nucleated red blood cell per centageOrdered By: Moses Montalvo on 10-24-2024 Nucleated RBC/100 WBC (Bld) [Ratio] 0 % 0-5 [facility] Phosphoruson 10-24-2024 Phosphate [Mass/Vol] 2.8 mg/dL Normal 2.7-4.5 [facility] Comment on above: Performed By: #### L 400.7600, M100.0500, L400.0001, M100.677 #### [facility] [address] [place], [address] Plasma epinephrine measureme nt (mass/volume)Ordered By: Moses Montalvo on 10-24-2024 EPINEPHrine (P) [Mass/Vol] 27.5 pg/mL 0.0-55.4 [facility] Plasma norepinephrine measur ement (mass/volume)Ordered By: Moses Montalvo on 10-24-2024 Norepinephrine (P) [Mass/Vol] 529 pg/mL High 115-524 [facility] Platelet countOrdered By: Ra librado Montalvo on 10-24-2024 Platelets (Bld) [#/Vol] 239 10*3/uL 150-450 [facility] Potassium measurement (mass/ volume)Ordered By: Moses Montalvo on 10-24-2024 Potassium (Unsp spec) [Mass/Vol] 3.0 mmol/L Low 3.3-5.1 [facility] RBC Auto (Bld) [#/Vol]Ordere d By: Moses Montalvo on 10-24-2024 RBC (Bld) [#/Vol] 4.39 10*6/uL 4.2-5.4 [facility] Serum DNA double strand anti body assay (units/volume)Ordered By: Moses Montalvo on 10-24-2024 DNA double strand Ab Qn (S) 1 [IU]/mL 0-9 [facility] Comment on above: Negative <5 Equivoca l 5 - 9 Positive >9 Serum Scl-70 antibody assay (units/volume)Ordered By: Moses Montalvo on 10-24-2024 SCL-70 extractable nuclear Ab Qn (S) TNP [facility] Comment on above: Test not performed SCL-70 extractable nuclear Ab Qn (S) <0.2 AI 0.0-0.9 [facility] Comment on above: Previous reported re sult: TNP AIEdited by: DENZEL on 10/30/24:0908 AMENDED REPORT 10/30/24907 ANTISCLER previously reported as: Test not performed Serum black walnut IgE antib liz assay (units/volume)Ordered By: Moses Montalvo on 10-24-2024 Black [place] IgE Qn (S) <0.10 kU/L Class 0 [facility] Serum chromogranin A measure mentOrdered By: Moses Montalvo on 10-24-2024 Serum chromogranin A measurement 87.6 ng/mL 0.0-101.8 [facility] Comment on above: Chromogranin A perfo rmed by [employer]/1-4 All KRYPTORmethodologyValues obtained with different assay methods or kits cannotbe used interchangeably.Performed at: [facility] [employer] [id number] Director: Fortunato Santiago PhD, Phone: [phone] at: [facility] [employer] [id number] Director: Dia Marquez MD, Phone: [phone] at: [facility] [employer] [id number] [place], [place] [id number] Director: Collins Doran [facility], Phone: [phone] at: [facility] [facility] [id number] [place], [place] [id number] Director: Collins Doran [facility], Phone: [phone] Serum clam IgE antibody assa y (units/volume)Ordered By: Moses Montalvo on 10-24-2024 Clam IgE Qn (S) <0.10 kU/L Class 0 [facility] Serum classic neutrophil cyt oplasmic antibody assay (units/volume)Ordered By: Moses Montalvo on 10-24-2024 Neutrophil cytoplasmic Ab.classic Qn (S) <1:20 titer Neg:<1:20 [facility] Serum codfish IgE antibody a ssay (units/volume)Ordered By: Moses Montalvo on 10-24-2024 Codfish IgE Qn (S) <0.10 kU/L Class 0 [facility] Serum corn IgE antibody assa y (units/volume)Ordered By: Moses Montalvo on 10-24-2024 [place] IgE Qn (S) <0.10 kU/L Class 0 [facility] Serum cow milk IgE antibody assay (units/volume)Ordered By: Moses Montalvo on 10-24-2024 Cow milk IgE Qn (S) <0.10 kU/L Class 0 [facility] Serum creatinine measurement (mass/volume)Ordered By: Moses Montalvo on 10-24-2024 Creatinine [Mass/Vol] 0.71 mg/dL 0.70-1.20 [facility] Serum egg white IgE antibody assay (units/volume)Ordered By: Moses Montalvo on 10-24-2024 Egg white IgE Qn (S) <0.10 kU/L Class 0 [facility] Serum globulin measurementOr dered By: Moses Montalvo on 10-24-2024 Globulin (S) [Mass/Vol] 2.9 g/dL 2.2-4.2 [facility] Serum globulin measurement ( mass/volume)Ordered By: Moses Montalvo on 10-24-2024 Globulin (S) [Mass/Vol] 3.4 g/dL 2.2-3.9 [facility] Serum glucose measurement (m ass/volume)Ordered By: Moses Montalvo on 10-24-2024 Glucose [Mass/Vol] 116 mg/dL High 70-99 [facility] Serum or plasma C reactive p rotein measurement (mass/volume)Ordered By: Moses Montalvo on 10-24-2024 CRP [Mass/Vol] mg/L 0.0-3.0 [facility] Serum or plasma IgA measurem ent (mass/volume)Ordered By: Moses Montalvo on 10-24-2024 IgA [Mass/Vol] 104 mg/dL 87-352 [facility] Serum or plasma IgG measurem ent (mass/volume)Ordered By: Moses Montalvo on 10-24-2024 IgG [Mass/Vol] 998 mg/dL 586-1602 [facility] Serum or plasma alanine wells otransferase (ALT) measurementOrdered By: Moses Montalvo on 10-24-2024 ALT [Catalytic activity/Vol] 24 U/L <35 [facility] Serum or plasma albumin aparna urement (mass/volume)Ordered By: Moses Montalvo on 10-24-2024 Albumin [Mass/Vol] 4.4 g/dL 3.5-5.0 [facility] Serum or plasma albumin/glob ulin mass ratioOrdered By: Moses Montalvo on 10-24-2024 Albumin/Globulin [Mass ratio] 1.5 {ratio} 0.9-2.4 [facility] Serum or plasma alkaline trell sphatase measurementOrdered By: Moses Montalvo on 10-24-2024 ALP [Catalytic activity/Vol] 57 U/L 35-104 [facility] Serum or plasma alpha 1 glob ulin measurement by electrophoresis (mass/volume)Ordered By: Moses Montalvo on 10-24-2024 Alpha 1 globulin Elph [Mass/Vol] 0.3 g/dL 0.0-0.4 [facility] Alpha 1 globulin Elph [Mass/Vol] 0.9 g/dL 0.4-1.0 [facility] Serum or plasma amylase aparna urement (enzymatic activity/volume)Ordered By: Moses Montalvo on 10-24-2024 Amylase [Catalytic activity/Vol] 52 U/L 28-100 [facility] Serum or plasma beta globuli n measurement by electrophoresis (mass/volume)Ordered By: Moses Montalvo on 10-24-2024 Beta globulin Elph [Mass/Vol] 1.2 g/dL 0.7-1.3 [facility] Serum or plasma calcium aparna urement (mass/volume)Ordered By: Moses Montalvo on 10-24-2024 Calcium [Mass/Vol] 9.0 mg/dL 7.6-11.0 [facility] Serum or plasma creatine kin ase activityOrdered By: Moses Montalvo on 10-24-2024 CK [Catalytic activity/Vol] 187 U/L 24-195 [facility] Serum or plasma dopamine mikael surement (mass/volume)Ordered By: Moses Montalvo on 10-24-2024 DOPamine [Mass/Vol] 12.9 pg/mL 0.0-36.7 [facility] Serum or plasma erythropoiet in (EPO) measurement (units/volume)Ordered By: Moses Montalvo on 10-24-2024 Erythropoietin (EPO) Qn 9.0 mIU/mL 2.6-18.5 [facility] Comment on above: Gojee el DxI 800 Immunoassay SystemValues obtained with different assay methods or kits cannotbe used interchangeably. Results cannot be interpreted asabsolute evidence of the presence or absence of malignantdisease. Serum or plasma gamma globul in measurement by electrophoresis (mass/volume)Ordered By: Moses Montalvo on 10-24-2024 Gamma globulin Elph [Mass/Vol] 1.0 g/dL 0.4-1.8 [facility] Serum or plasma hepatitis B virus surface antigen detection by immunoassayOrdered By: Moses Montalvo on 10-24-2024 HBV surface Ag IA Ql Negative Negative [facility] Serum or plasma immunoelectr ophoresis interpretation (nominal result)Ordered By: Moses Montalvo on 10-24-2024 Interpretation IEP [Interp] Comment . [facility] Comment on above: No monoclonality det ected. Serum or plasma mannobioside IgG antibody assay by immunoassay (units/volume)Ordered By: Moses Montalvo on 10-24-2024 Mannobioside IgG IA Qn 8 units 0-100 [facility] Comment on above: Negative: <90 Equivo robert: 90-100 Positive: >100 This test was developed and its performance characteristics determined by [employer]. It has not been cleared or approved by the Food and Drug Administration. The FDA has determined that such clearance or approval is not necessary. Serum or plasma protein aparna urement (mass/volume)Ordered By: Moses Montalvo on 10-24-2024 Protein [Mass/Vol] 7.4 g/dL 6.0-8.5 [facility] Serum or plasma urea nitroge n measurement (mass/volume)Ordered By: Moses Montalvo on 10-24-2024 Urea nitrogen [Mass/Vol] 9 mg/dL 4-19 [facility] Serum peanut IgE antibody as say (units/volume)Ordered By: Moses Montalvo on 10-24-2024 Peanut IgE Qn (S) <0.10 kU/L Class 0 [facility] Serum perinuclear neutrophil cytoplasmic antibody titer by immunofluorescenceOrdered By: Moses Montalvo on 10-24-2024 Neutrophil cytoplasmic Ab.perinuclear IF (S) [Titer] <1:20 titer Neg:<1:20 [facility] Comment on above: The presence of posi tive fluorescence exhibiting P-ANCA orC-ANCA patterns alone is not specific for the diagnosis ofWegener's Granulomatosis (WG) or microscopic polyangiitis.Decisions about treatment should not be based solely onANCA IFA results. The [employer] ANCA [employer] Consensusrecommends follow up testing of positive sera with both TN-3 and MPO-ANCA enzyme immunoassays. As many as 5% serumsamples are positive only by EIA. Ref. AM J Clin Qujofn3758;111:507-513. Serum soybean IgE antibody a ssay (units/volume)Ordered By: Moses Montalvo on 10-24-2024 Soybean IgE Qn (S) <0.10 kU/L Class 0 [facility] Serum tissue transglutaminas e (tTG) IgA antibody assay (units/volume)Ordered By: Moses Montalvo on 10-24-2024 tTG IgA Qn (S) <2 U/mL 0-3 [facility] Comment on above: Negative 0 - 3 Weak Positive 4 - 10 Positive >10 Tissue Transglutaminase (tTG) has been identified as the endomysial antigen. Studies have demonstr- ated that endomysial IgA antibodies have over 99% specificity for gluten sensitive enteropathy. Serum wheat IgE antibody ass ay (units/volume)Ordered By: Moses Montalvo on 10-24-2024 Wheat IgE Qn (S) <0.10 kU/L Class 0 [facility] Sodium levelOrdered By: Sophy Vega on 10-24-2024 Sodium [Moles/Vol] 140 mmol/L 133-145 [facility] Total proteinOrdered By: Robby Montalvo on 10-24-2024 Protein [Mass/Vol] 7.3 g/dL 5.9-8.4 [facility] Vitamin B12on 10-24-2024 Cobalamin (Vitamin B12) [Mass/Vol] 627 pg/mL Normal 180-914 [facility] Comment on above: Performed By: #### L 400.7600, M100.0500, L400.0001, M100.677 #### [facility] [address] [place], [address] Vitamin B12 ser/plasOrdered By: Moses Friend on 10-24-2024 Cobalamin (Vitamin B12) [Mass/Vol] 627 pg/mL 180-914 [facility] White blood cell (WBC) count Ordered By: Moses Friend on 10-24-2024 WBC (Bld) [#/Vol] 12.3 10*3/uL High 4.4-11.0 [facility] Bilirubin Test strip Ql (U)O rdered By: Humphrey Andrew on 10-23-2024 Bilirubin Ql (U) Negative Negative [facility] Emergency Department Summary on 10-23-2024 Emergency Department Summary [facility] Medical Records Department [address] [place] [address] Emergency Department Summary 10/23/24 MR#: [id number] Acct: [id number] Name: POLINA GIRON Rep #: [id number] : 1990 34 From: Humphrey Peres PCP: [...] protection. Denies history of STDs. 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 Prior similar symptoms: Yes PFSH PFSH Medical [...] tory medroxyprogesterone 150 mg/mL 150 mg IM .[id number] 05/22/20 Unkno wn History intramuscular syringe multivitamin [...] guarding or rebound tenderness present Narrative: Nursing cytogenetics technologist: External exam there is no lesions noted. [...] Sensorium / (more content not included)... Normal [facility] Ketones Test strip Ql (U)Ord ered By: Humphrey Andrew on 10-23-2024 Ketones Ql (U) Negative Negative [facility] M100.677on 10-23-2024 M100.677 Negative Normal [facility] Comment on above: Performed By: #### L 400.7600, M100.0500, L400.0001, M100.677 #### [facility] [address] [place], [address] M8200.2203on 10-23-2024 M8200.2203 REDRAW. PREVIOUS SPECIMEN REJECTED DUE TO QNS NEED 10 ML. 10/23/24 1436 Love Palumbo. Chlamydia Trachomatis PCR NEGATIVE for Chlamydia trachomatis N. gonorrhoeae PCR Negative for N. gonorrhoeae Normal [facility] Comment on above: Performed By: #### M 8200.2203 #### [facility] [address] [place], [place], [address] Microscopic analysis of urin e for red blood cells (RBC)Ordered By: Humphrey Andrew on 10-23-2024 Microscopic analysis of urine for red blood cells (RBC) 0-5 SEEN /hpf 0-5 [facility] Mucus LM Ql (Urine sed)Order ed By: Humphrey Andrew on 10-23-2024 Mucus Ql (Urine sed) 2+ /hpf [facility] Nitrite Test strip Ql (U)Ord ered By: Humphrey Andrew on 10-23-2024 Nitrite Ql (U) Negative Negative [facility] ,Urineon 10-23-2024 Beta HCG ( test) Ql (U) Negative Normal [facility] Comment on above: Result Comment: Very dilute urine specimens, as indicated by a low specific gravity, may not contain equal opportunity representative levels of hCG. If is still suspected, a first morning urine specimen should be collected 48 hours later and tested. Performed By: #### L 400.7600, M100.0500, L400.0001, M100.677 #### [facility] [address] [place], [place], [id number] Protein Test strip Ql (U)Ord ered By: Humphrey Andrew on 10-23-2024 Protein Ql (U) 30 mg/dl High Negative [facility] Squamous epithelial cells de tection in urine sediment by light microscopyOrdered By: Humphrey Andrew on 10-23-2024 Epithelial cells.squamous LM Ql (Urine sed) 0-5 SEEN /hpf 5-10 [facility] Streptococcus pyogenes rRNA detection in throat by DNA probeOrdered By: Humphrey Andrew on 10-23-2024 S. pyogenes rRNA Probe Ql (Throat) [facility] Throat specimen bacteria yolanda ntification by cultureOrdered By: Humphrey Andrew on 10-23-2024 Bacteria identified Cx Nom (Throat) streptococcus isolated. [facility] Trichomonas vaginalis detect ion by wet preparationOrdered By: Humphrey Andrew on 10-23-2024 T. vaginalis Wet prep Ql (Unsp spec) [facility] Urinalysis, Completeon 10-23 Mucus Ql (Urine sed) 2+ /hpf Normal [facility] Comment on above: Order Comment: CLEAN CATCH Performed By: #### L 400.7600, M100.0500, L400.0001, M100.677 #### [facility] [address] [place], [address] URIC CRYSTALS 1+ /hpf Normal [facility] Comment on above: Order Comment: CLEAN CATCH Performed By: #### L 400.7600, M100.0500, L400.0001, M100.677 #### [facility] [address] [place], [address] EPI,SQUAMOUS 0-5 SEEN Normal 5-10 [facility] Comment on above: Order Comment: CLEAN CATCH Performed By: #### L 400.7600, M100.0500, L400.0001, M100.677 #### [facility] [address] [place], [address] RBC 0-5 SEEN Normal 0-5 [facility] Comment on above: Order Comment: CLEAN CATCH Performed By: #### L 400.7600, M100.0500, L400.0001, M100.677 #### [facility] [address] [place], [address] WBC 0-5 SEEN Normal 0-5 [facility] Comment on above: Order Comment: CLEAN CATCH Performed By: #### L 400.7600, M100.0500, L400.0001, M100.677 #### [facility] [address] [place], [address] BACTERIA 0 SEEN Normal None Seen [facility] Comment on above: Order Comment: CLEAN CATCH Performed By: #### L 400.7600, M100.0500, L400.0001, M100.677 #### [facility] [address] [place], [address] Urine clarityOrdered By: Jono Andrew on 10-23-2024 Clarity (U) Cloudy Clear [facility] Urine color determinationOrd ered By: Humphrey Andrew on 10-23-2024 Color (U) Yellow Yellow [facility] Urine glucose detectionOrder ed By: Humphrey Andrew on 10-23-2024 Glucose Ql (U) Normal mg/dl Normal [facility] Urine leukocyte esterase det ection by dipstickOrdered By: Humphrey Andrew on 10-23-2024 Leukocyte esterase Test strip Ql (U) Negative Negative [facility] Urine pHOrdered By: Humphrey Andrwe on 10-23-2024 pH (U) 5.0 [pH] 5.0 - 8.0 [facility] Urine testOrdered By: Humphrey Andrew on 10-23-2024 HCG ( test) Ql (U) Negative [facility] Comment on above: Very dilute urine sp ecimens, as indicated by a low specificgravity, may not contain equal opportunity representative levels of hCG. If is still suspected, a first morning urinespecimen should be collected 48 hours later and tested. Urine sediment bacteria coun t by microscopy (number/high power field)Ordered By: Humphrey Andrew on 10-23-2024 Bacteria LM.HPF (Urine sed) [#/Area] 0 /[HPF] None Seen [facility] Urine sediment uric acid cry stal count by microscopy (number/high power field)Ordered By: Humphrey Andrew on 10-23-2024 Urate crystals LM.HPF (Urine sed) [#/Area] 1 /[HPF] [facility] Urine specific gravity measu rementOrdered By: Humphrey Andrew on 10-23-2024 Specific gravity (U) [Rel density] 1.020 1.002-1.030 [facility] Urine urobilinogen measureme ntOrdered By: Humphrey Andrew on 10-23-2024 Urobilinogen Ql (U) Normal mg/dl Normal [facility] Wet Prep Trichamonason 10-23 WP Motile Trichomonas NONE SEEN WBC N Normal [facility] Comment on above: Performed By: #### L 400.7600, M100.0500, L400.0001, M100.677 #### [facility] [address] [place], [address] White blood cell countOrdere d By: Humphrey Andrew on 10-23-2024 White blood cell count 0-5 SEEN /hpf 0-5 [facility] 36on 10-21-2024 36 Med request/call nash mar to Dr Kwok and carol [facility] sent [facility] Progress Noteon 10-21-2024 Progress Note Ocella - no aura [facility] 36on 10-18-2024 36 Patient states the S martin is not covered and wants to know if she get get another medication prescribed. She states she wants to continue not having periods and doesn't want it to cause weight gain. Please call and advise. Thank you. [facility] 36on 10-16-2024 36 Prior Auth Slynd initiated through Covermymeds. Powell: [id number] PA denied: [facility] 36 Name of caller: Fadumo lee Contact phone number: [phone] Relationship to Patient: patient Provider: Kerri Practice: [...] business hours to return their call: Yes [facility] Office Visiton 10-16-2024 Follow-up visit [id number] Nikolai Giron 1990 F Date Provider Department Center 10/16/2024 [id number] COELLO [facility] Offi Family History Problem Relation Age of Onset ADD / ADHD Mother Anxiety disorder Mother Depression Mother Migraines Mother Family Status - Relation Status Age at Mother Level of Service:44540 [place] OFFICE/OUTPATIENT ESTABLISHED LOW MDM 20 MIN Reason for Visit and Comments: Contraception [60] - Discuss alternative BC Previously on depo, last injection in August Patient noticing weight gain No periods with depo, Denies pelvic pain [facility] Progress Noteon 10-16-2024 Progress Note Chief Complaint [...] Nausea And Vomiting Other reaction(s): GI Upset Hydrocodone-Acetaminophe n Nausea And Vomiting Other reaction(s): GI Upset Ibuprofen Other reaction(s): GI Upset Normal [facility] Culture, Throaton 10-05-2024 CUT Ampicillin can be us ed for Beta-Lactamase negative isolates. Bacteria Throat Cult Trimeth/Sulfa, Chloramphenicol, Cefotaxime, Ciprofloxacin, Amoxicillin/Clavulanic Acid, and Oral 2nd/3rd Generation Cephalosporins are effective against both Beta-Lactamase positive and Beta-Lactamase negative isolates. Haemophilus influenzae Amount Growth Rare Beta Lactamase-Reportable Negative Normal [facility] Comment on above: Performed By: #### M 100.1000 #### [facility] [address] [place], [address] Throat specimen bacteria yolanda ntification by cultureOrdered By: Ar Villarrela on 10-03-2024 Bacteria identified Cx Nom (Throat) Haemophilus influenzae Abnormal [facility] 36on 09-23-2024 36 Noted. Pt was scheduled Normal [facility] 36 Reason for Dispositi on Requesting regular office appointment Protocols used: Information Only Call - No [id number] S: Pt calling [facility] to discuss control options with her Ob-criminal justice professor provider. B: Pt has gained 40 lbs over the past year. A: Pt thinks this is due to the Depo Provera shot. She would like an appt at the [facility] some time in October and around noon. R: Pt states she just received message from office and they scheduled the visit for her. Asked pt to call back if further assistance is needed. [place] [address] Kwok's Tanesha WADE [place] [address] Name of caller: Fadumo lee Contact phone number: [phone] Relationship to Patient: patient Provider: Dr. Kwok Practice: [facility] Chief Complaint/Reason for Call: Polina states that the Depo injections are causing her to gain a lot of weight and she would like to know if she could stop the injections and use a different contraceptive. Please advise. Best time of day caller can be reached: Any Patient advised that office/PCP has 24-48 business hours to return their call: Yes [facility] 36on 09-05-2024 36 Patient has been contacted [place] [address] Please call pt to se t up an appt [facility] 36on 09-04-2024 36 Noted [place] [address] patient has been notified of providers message She states she will try one more time and if it happens again she will stop the botox injections [place] [address] We will cancel the B otox per her request [place] [address] Spoke with patient s he stated the symptoms started 1 week after her botox injections. She also has scabs on her head. Normal [facility] 36 Lm for patient to ca ll the office back, please relay providers message. [facility] 36 Those symptoms she i s having are NOT from the Botox. She needs to contact her PCP [facility] 36 Having reaction from Botox, flu like symptoms for 3-4 days on head. States she called in and spoke with nurse this AM, was calling back in during office hours to reach someone in office. RN called [facility] neuro backline for further assistance. Office staff advised encounter has been routed to Britni and she will reach out after reviewed. Patient made aware. States it is not an emergency but just wanted to let her know. No further needs at this time. Patient can be reached at [phone]. [facility] 36 S: The patient is calling the [facility] about Botox injections B: She received these [...] Protocols used: Information Only Call - No [id number] [facility] Progress Noteon 08-22-2024 Progress Note Depo Provera given i n Right Dorsogluteal . Patient tolerated injection well and had no concerns. Patient Supplied [facility]: [id number] LOT:[id number] EXP: 07/06/2025 [facility] Lumbar Spine 2 or 3 Viewson 08-19-2024 Lumbar Spine 2 or 3 Views [facility] Imaging Services [facility] [address] [place], [place] [address] Lumbar Spine 2 or 3 Views MR#: [id number] Acct: [id number] Name: POLINA GIRON Rep #: [id number] : 1990 F 34 From: Gonzalo Soto PCP: Dr. Nataliya Gomez MD Status: REG CLI Study: Lumbar Spine 2 or 3 Views Date of Exam: Exam# [id number] Ordering Dr: Nataliya Gomez MD PROCEDURE: LUMBAR [...] If persistent concern, consider MRI Reading Location: [id number] CC: Dr. Nataliya Gomez MD Timber Appraiser: Signed [facility] 07-29-2024 36 The patient has upco sung Botox appt on 08/15/2024 The Botox will be supplied by us at [facility] and delivered to the MD office on 08/06/2024 BOTOX IS PATIENT SUPPLIED!!! # of Units to be Administered: 200 Medication: botox Dosing Schedule: once every 12 weeks Prior Authorization: Approved (pharmacy benefit) [facility] 3607-08-2024 36 [place]: 12/13/23 NOV: Refill pended for approval Depo with 0 refills. [facility] 3607-03-[address] [place] [address] investigating ubrelvy [place] [address] Let her know that we have to get approval for Ubrelvy first--I sent a message to [facility] [place] [address] Is it possible to ge t Ubrelvy approved? 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 Polina states that she is requesting to have a script sent to [id number], as soon as possible. Please advise. Best time of day caller can be reached: Any Patient advised that office/PCP has 24-48 business hours to return their call: No [facility] 36 Lm for patient to [facility] the office back, please let her know samples can not be mailed. [facility] 36 See other TE [facility] 36on 07-02-2024 36 Please see previous TE Message released to patient as written. Patient's further questions if applicable: N/A Were all questions from office addressed or relayed to the patient from encounter: Yes Patient is inquiring if the [facility] pharmacy can deliver samples of Ubrelvy to her. Please advise. [facility] 36 Lm for patient to [facility] the office back, please relay providers message. [facility] 36 Please contact pt an d have her stop in and get samples of Ubrelvy-4 of the 100mgs [facility] 36 S: Patient spoke to CAC nurse [...] > 24 hours and unexplained Protocols used: [id number] [facility] 36 Spoke with Mi today about Nurtec [...] to the office to discuss. Thank you! [facility] 36on 01-06-2025 36 Patient is stating t hat the botox was denied, please advise [facility] 36on 06-07-2024 36 Pt states was not gi ayla any info of why the injections were denied and was told to just resubmit the claim [facility] 36 Lm for patient to ca ll the office back, please get a more detailed message. What was denied? [facility] 36 Name of caller: Fadumo lee Contact phone number: [phone] Relationship to Patient: patient Provider: René Mason Practice: Neurology Chief Complaint/Reason for Call: Polina called advising that her request for approval from the insurance company was denied. Patient advised she why it was denied. Please call patient back and advise. Best time of day caller can be reached: any Patient advised that office/PCP has 24-48 business hours to return their call: Yes [facility] Progress Noteon 06-06-2024 Progress Note Pt supplied depo giv en in left gluteal [id number] LOT [id number] Exp 07/06/2025 [facility] 36on 05-20-2024 36 Spoke with patient a nd answered all questions [facility] 36 Name of caller: Fadumo lee Contact phone number: [phone] Relationship to Patient: patient Provider: ROBERT Mason Practice: [facility] Neurology [place] Chief Complaint/Reason for Call: Patient states that [...] business hours to return their call: No Normal [facility] CBC W/Diff, Automatedon 04-05 Absolute Lymph 1.93 X10 3/uL Normal 0.83-4.51 [facility] Comment on above: Order Comment: Order Date: 04/11/24Order Info: 0184-1 - CBCD Performed By: #### L 400.7600, M100.0500, L400.0001, M100.677 #### [facility] [address] [place], [address] Absolute Neut 7.4 X10 3/uL Normal 2.0-7.7 [facility] Comment on above: Order Comment: Order Date: 04/11/24Order Info: 0184-1 - CBCD Performed By: #### L 400.7600, M100.0500, L400.0001, M100.677 #### [facility] [address] [place], [address] Basophils/100 WBC (Bld) 0.3 % Normal 0-1 [facility] Comment on above: Order Comment: Order Date: 04/11/24Order Info: 183- - CBCD Performed By: #### L 400.7600, M100.0500, L400.0001, M100.677 #### [facility] [address] [place], [address] Eosinophils/100 WBC (Bld) 0.1 % Normal 0-5 [facility] Comment on above: Order Comment: Order Date: 04/11/24Order Info: 018- - CBCD Performed By: #### L 400.7600, M100.0500, L400.0001, M100.677 #### [facility] [address] [place], [address] Erythrocyte distribution width (RBC) [Ratio] 13.2 % Normal 11.6-14.6 [facility] Comment on above: Order Comment: Order Date: 04/11/24Order Info: 0184-1 - CBCD Performed By: #### L 400.7600, M100.0500, L400.0001, M100.677 #### [facility] [address] [place], [address] Hematocrit (Bld) [Volume fraction] 47.8 % High 37-47 [facility] Comment on above: Order Comment: Order Date: 04/11/24Order Info: 018- - CBCD Performed By: #### L 400.7600, M100.0500, L400.0001, M100.677 #### [facility] [address] [place], [address] Hemoglobin (Bld) [Mass/Vol] 15.6 g/dL High 12.0-15.0 [facility] Comment on above: Order Comment: Order Date: 04/11/24Order Info: 018- - CBCD Performed By: #### L 400.7600, M100.0500, L400.0001, M100.677 #### [facility] [address] [place], [address] IG% 0.400 Normal 0.0-0.9 [facility] Comment on above: Order Comment: Order Date: 04/11/24Order Info: 018- - CBCD Result Comment: IG% - Immature Granulocytes (promyelocytes, myelocytes and metamyelocytes) > 1% indicates that a LEFT SHIFT is Present. Performed By: #### L 400.7600, M100.0500, L400.0001, M100.677 #### [facility] [address] [place], [address] Lymphocytes/100 WBC (Bld) 19.8 % Normal 19-41 [facility] Comment on above: Order Comment: Order Date: 04/11/24Order Info: 018- - CBCD Performed By: #### L 400.7600, M100.0500, L400.0001, M100.677 #### [facility] [address] [place], [address] MCH (RBC) [Entitic mass] 32.2 pg High 27.0-32.0 [facility] Comment on above: Order Comment: Order Date: 04/11/24Order Info: 018- - CBCD Performed By: #### L 400.7600, M100.0500, L400.0001, M100.677 #### [facility] [address] [place], [address] MCHC (RBC) [Mass/Vol] 32.6 g/dL Normal 32-36 [facility] Comment on above: Order Comment: Order Date: 04/11/24Order Info: 018- - CBCD Performed By: #### L 400.7600, M100.0500, L400.0001, M100.677 #### [facility] [address] [place], [address] MCV (RBC) [Entitic vol] 98.6 fL Normal 81-99 [facility] Comment on above: Order Comment: Order Date: 04/11/24Order Info: 183- - CBCD Performed By: #### L 400.7600, M100.0500, L400.0001, M100.677 #### [facility] [address] [place], [address] Monocytes/100 WBC (Bld) 3.6 % Normal 0-10 [facility] Comment on above: Order Comment: Order Date: 04/11/24Order Info: 018- - CBCD Performed By: #### L 400.7600, M100.0500, L400.0001, M100.677 #### [facility] [address] [place], [address] Neutrophils/100 WBC (Bld) 75.8 % High 47-70 [facility] Comment on above: Order Comment: Order Date: 04/11/24Order Info: 018-1 - CBCD Performed By: #### L 400.7600, M100.0500, L400.0001, M100.677 #### [facility] [address] [place], [address] Nucleated RBC (Bld) [#/Vol] 0 10*3/uL Normal 0-5 [facility] Comment on above: Order Comment: Order Date: 04/11/24Order Info: 018- - CBCD Performed By: #### L 400.7600, M100.0500, L400.0001, M100.677 #### [facility] [address] [place], [address] Platelet mean volume (Bld) [Entitic vol] 9.9 fL Normal 6.2-12.0 [facility] Comment on above: Order Comment: Order Date: 04/11/24Order Info: 018- - CBCD Performed By: #### L 400.7600, M100.0500, L400.0001, M100.677 #### [facility] [address] [place], [address] Platelets (Bld) [#/Vol] 271 10*3/uL Normal 150-450 [facility] Comment on above: Order Comment: Order Date: 04/11/24Order Info: 018- - CBCD Performed By: #### L 400.7600, M100.0500, L400.0001, M100.677 #### [facility] [address] [place], [address] RBC (Bld) [#/Vol] 4.85 10*6/uL Normal 4.2-5.4 [facility] Comment on above: Order Comment: Order Date: 04/11/24Order Info: 018- - CBCD Performed By: #### L 400.7600, M100.0500, L400.0001, M100.677 #### [facility] [address] [place], [address] RDW SD 47.6 fl High 35.1-43.9 [facility] Comment on above: Order Comment: Order Date: 04/11/24Order Info: 018- - CBCD Performed By: #### L 400.7600, M100.0500, L400.0001, M100.677 #### [facility] [address] [place], [address] WBC (Bld) [#/Vol] 9.7 10*3/uL Normal 4.4-11.0 [facility] Comment on above: Order Comment: Order Date: 04/11/24Order Info: 0184-1 - CBCD Performed By: #### L 400.7600, M100.0500, L400.0001, M100.677 #### [facility] [address] [place], [address] Comprehensive Metabolic Prof ilon 04-15-2024 Albumin [Mass/Vol] 4.0 g/dL Normal 3.2-5.0 [facility] Comment on above: Order Comment: Order Date: 04/11/24Order Info: 0786-1 - CMPOrder Info: 3013 - TSHOrder Date: 04/15/24Order Info: 0553-1 - FSHLH Performed By: #### L 400.7600, M100.0500, L400.0001, M100.677 #### [facility] [address] [place], [address] Albumin/Globulin [Mass ratio] 1.0 {ratio} Normal 0.9-2.4 [facility] Comment on above: Order Comment: Order Date: 04/11/24Order Info: 0786-1 - CMPOrder Info: 3013 - TSHOrder Date: 04/15/24Order Info: 0553-1 - FSHLH Performed By: #### L 400.7600, M100.0500, L400.0001, M100.677 #### [facility] [address] [place], [address] ALK P 59 U/L Normal 45-117 [facility] Comment on above: Order Comment: Order Date: 04/11/24Order Info: 0786-1 - CMPOrder Info: 301-3 - TSHOrder Date: 04/15/24Order Info: 0553-1 - FSHLH Performed By: #### L 400.7600, M100.0500, L400.0001, M100.677 #### [facility] [address] [place], [address] ALT [Catalytic activity/Vol] 24 U/L Normal 13-56 [facility] Comment on above: Order Comment: Order Date: 04/11/24Order Info: 86-1 - CMPOrder Info: 6-3 - TSHOrder Date: 04/15/24Order Info: 0553-1 - FSHLH Performed By: #### L 400.7600, M100.0500, L400.0001, M100.677 #### [facility] [address] [place], [address] AST [Catalytic activity/Vol] 11 U/L Low 15-37 [facility] Comment on above: Order Comment: Order Date: 04/11/24Order Info: 785-1 - CMPOrder Info: 3 - TSHOrder Date: 04/15/24Order Info: 0553-1 - FSHLH Performed By: #### L 400.7600, M100.0500, L400.0001, M100.677 #### [facility] [address] [place], [address] Bilirubin [Mass/Vol] 0.40 mg/dL Normal 0.20-1.00 [facility] Comment on above: Order Comment: Order Date: 04/11/24Order Info: 785-1 - CMPOrder Info: 3015-3 - TSHOrder Date: 04/15/24Order Info: 0553-1 - FSHLH Result Comment: For patients on eltrombopag therapy, use of Dimension [place] TBIL is not recommended. Performed By: #### L 400.7600, M100.0500, L400.0001, M100.677 #### [facility] [address] [place], [address] BUN/CRE 8.8 RATIO Low 10-20 [facility] Comment on above: Order Comment: Order Date: 04/11/24Order Info: 785-1 - CMPOrder Info: 3015-08 - TSHOrder Date: 04/15/24Order Info: 0553-1 - FSHLH Performed By: #### L 400.7600, M100.0500, L400.0001, M100.677 #### [facility] [address] [place], [address] CA,Total 9.4 mg/dL Normal 8.5-10.1 [facility] Comment on above: Order Comment: Order Date: 04/11/24Order Info: 785-06 - CMPOrder Info: 3015-08 - TSHOrder Date: 04/15/24Order Info: 552- - FSHLH Performed By: #### L 400.7600, M100.0500, L400.0001, M100.677 #### [facility] [address] [place], [address] Chloride [Moles/Vol] 112 mmol/L High 98-107 [facility] Comment on above: Order Comment: Order Date: 04/11/24Order Info: 785-06 - CMPOrder Info: 3015-08 - TSHOrder Date: 04/15/24Order Info: 0553-1 - FSHLH Performed By: #### L 400.7600, M100.0500, L400.0001, M100.677 #### [facility] [address] [place], [address] CO2 [Moles/Vol] 18.0 mmol/L Low 21.0-32.0 [facility] Comment on above: Order Comment: Order Date: 04/11/24Order Info: 785- - CMPOrder Info: 3015-08 - TSHOrder Date: 04/15/24Order Info: 0553-1 - FSHLH Performed By: #### L 400.7600, M100.0500, L400.0001, M100.677 #### [facility] [address] [place], [address] Creatinine [Mass/Vol] 0.79 mg/dL Normal 0.55-1.02 [facility] Comment on above: Order Comment: Order Date: 04/11/24Order Info: 0786-1 - CMPOrder Info: [id number] - TSHOrder Date: 04/15/24Order Info: 0553-1 - FSHLH Result Comment: The validity of the calculated GFR GFRAA in patients over 70 years has not been determined. Clinical correlation is essential. Performed By: #### L 400.7600, M100.0500, L400.0001, M100.677 #### [facility] [address] [place], [address] EST GFR - AA 107 mL/min Normal >60 [facility] Comment on above: Order Comment: Order Date: 04/11/24Order Info: 07- - CMPOrder Info: [id number] - TSHOrder Date: 04/15/24Order Info: 0553-1 - FSHLH Result Comment: Afri can [place] GFR Calc Performed By: #### L 400.7600, M100.0500, L400.0001, M100.677 #### [facility] [address] [place], [address] GAP 11 Normal 5-15 [facility] Comment on above: Order Comment: Order Date: 04/11/24Order Info: 0786-1 - CMPOrder Info: 3015-08 - TSHOrder Date: 04/15/24Order Info: 0553-1 - FSHLH Performed By: #### L 400.7600, M100.0500, L400.0001, M100.677 #### [facility] [address] [place], [address] GFR/1.73 sq M.predicted among non-blacks MDRD (S/P/Bld) [Vol rate/Area] 89 mL/min/{1.73_m2} Normal >60 [facility] Comment on above: Order Comment: Order Date: 04/11/24Order Info: 07- - CMPOrder Info: [id number] - TSHOrder Date: 04/15/24Order Info: 53- - FSHLH Result Comment: Non- GFR Calc Performed By: #### L 400.7600, M100.0500, L400.0001, M100.677 #### [facility] [address] [place], [address] Globulin (S) [Mass/Vol] 3.9 g/dL Normal 2.2-4.2 [facility] Comment on above: Order Comment: Order Date: 04/11/24Order Info: 785- - CMPOrder Info: [id number] - TSHOrder Date: 04/15/24Order Info: 552-06 - FSHLH Performed By: #### L 400.7600, M100.0500, L400.0001, M100.677 #### [facility] [address] [place], [address] Glucose [Mass/Vol] 118 mg/dL High 74-106 [facility] Comment on above: Order Comment: Order Date: 04/11/24Order Info: 785-06 - CMPOrder Info: 3015-08 - TSHOrder Date: 04/15/24Order Info: 552- - FSHLH Result Comment: Fast ing Glucose result from 100 to 125 mg/dL suggests IMPAIRED HOMEOSTASIS per A.D.A. criteria. Performed By: #### L 400.7600, M100.0500, L400.0001, M100.677 #### [facility] [address] [place], [address] Potassium [Moles/Vol] 3.6 mmol/L Normal 3.5-5.1 [facility] Comment on above: Order Comment: Order Date: 04/11/24Order Info: 785- - CMPOrder Info: [id number] - TSHOrder Date: 04/15/24Order Info: 53- - FSHLH Performed By: #### L 400.7600, M100.0500, L400.0001, M100.677 #### [facility] [address] [place], [address] Sodium [Moles/Vol] 141 mmol/L Normal 136-145 [facility] Comment on above: Order Comment: Order Date: 04/11/24Order Info: 0786-1 - CMPOrder Info: [id number] - TSHOrder Date: 04/15/24Order Info: 0553-1 - FSHLH Performed By: #### L 400.7600, M100.0500, L400.0001, M100.677 #### [facility] [address] [place], [address] T PROT 7.9 g/dL Normal 6.4-8.2 [facility] Comment on above: Order Comment: Order Date: 04/11/24Order Info: [id number] - CMPOrder Info: 3 - TSHOrder Date: 04/15/24Order Info: 0553-1 - FSHLH Performed By: #### L 400.7600, M100.0500, L400.0001, M100.677 #### [facility] [address] [place], [address] Urea nitrogen [Mass/Vol] 7 mg/dL Normal 7-18 [facility] Comment on above: Order Comment: Order Date: 04/11/24Order Info: 0786-1 - CMPOrder Info: 3 - TSHOrder Date: 04/15/24Order Info: 0553-1 - FSHLH Performed By: #### L 400.7600, M100.0500, L400.0001, M100.677 #### [facility] [address] [place], [address] FSH and LHon 04-15-2024 FSH 4.5 mIU/mL Normal [facility] Comment on above: Order Comment: CLEAN CATCH Result Comment: NORMAL REFERENCE RANGES FEMALE FOLLICULAR 2.3 - 12.6 mIU/mL MID-CYCLE PEAK 5.2 - 17.5 mIU/mL LUTEAL 1.7 - 12.9 mIU/mL POST-MENOPAUSAL ON MHT 5.9 - 72.8 mIU/mL NOT ON MHT 12.7 - 132.2 mlU/mL MALE 0.7 - 10.8 mIU/mL Performed By: #### L 400.7600, M100.0500, L400.0001, M100.677 #### [facility] [address] [place], [address] LH 2.4 mIU/mL Normal [facility] Comment on above: Order Comment: CLEAN CATCH Result Comment: NORMAL REFERENCE RANGES FEMALE FOLLICULAR 1.9 - 26.2 mIU/mL MID-CYCLE PEAK 22.8 - 76.1 mIU/mL LUTEAL 0.6 - 16.6 mIU/mL POST-MENOPAUSAL ON MHT 1.1 - 52.4 mIU/mL NOT ON MHT 8.6 - 61.8 mIU/mL MALE 1.2 - 10.6 mIU/mL Performed By: #### L 400.7600, M100.0500, L400.0001, M100.677 #### [facility] [address] [place], [address] Thyroid Stim Hormone (TSH)on 04-15-2024 TSH 0.701 uIU/mL Normal 0.358-3.740 [facility] Comment on above: Order Comment: Order Date: 04/11/24Order Info: 0786-1 - CMPOrder Info: [id number] - TSHOrder Date: 04/15/24Order Info: 0553-1 - FSHLH Performed By: #### L 400.7600, M100.0500, L400.0001, M100.677 #### [facility] [address] [place], [address] Vitamin D,25 Hydroxyon 04-15 Vitamin D 25-OH 49.6 ng/mL Normal [facility] Comment on above: Order Comment: Order Date: 04/11/24Order Info: [id number] - VITD25 Result Comment: Eleni min D 25(OH) Status Range Deficiency <20 ng/mL (50nmol/L) Insufficiency 20 - 30 ng/mL (50 - 75 nmol/L) Sufficiency 30 - 100 ng/mL (75 - 250 nmol/L) Toxicity >100 ng/mL (>250 nmol/L) Performed By: #### L 400.7600, M100.0500, L400.0001, M100.677 #### [facility] [address] [place], [address] 36on 04-05-2024 36 [place]: 12/13/23 NOV: Refill pended for approval Depo-Provera with 0 refills. [place] [address]on 01-30-2024 36 Patient has been rescheduled [place] [address] Name of Caller: Fadumo jesus Contact Reason for Appointment: Reschedule 01/24 botox appointment for two weeks out Office Name: [facility] Rashawn [address] 01-19-2024 36 Spoke with patient a nd had to cancel the appointment. She will call to reschedule [place] [address] Name of caller: Fadumo jennishamir Contact phone number: [phone] Relationship to Patient: patient Provider: ROBERT Mason Practice: [facility] Chief Complaint/Reason for Call: Pt called [...] business hours to return their call: N/A [place] [address]on 01-11-2024 36 Patients prescriptio n insurance currently doesn't require prescription rx radha sorry about that, thanks! [place] [address] Can we have the auth dates please [place] [address] The patient has upco sung Botox appt on 01/25/24. The Botox will be supplied by us at [facility] and delivered to the MD office on 01/23/24. BOTOX IS PATIENT SUPPLIED!!! # of Units to be Administered: 200 Medication: botox Dosing Schedule: once every 12 weeks Prior Authorization: Approved (pharmacy benefit) [facility] 36on 01-05-2024 36 [place]: 12/13/23 NOV: Refill pended for approval Depo-Provera with 0 refills. [facility] 36on 01-01-2024 36 Message released to patient as written. Patient's further questions if applicable: yes Were all questions from office addressed or relayed to the patient from encounter: Yes Normal [facility] Progress Noteon 12-21-2023 Progress Note Depo given in right gluteal on 12/21/23. Pt out of window. - HPT. Pt tolerated well. [facility]# [id number] LOT# [id number] EXP JANUARY 02 2027 Pt supplied [facility] 36on 12-19-2023 36 Mychart mssg sent. N ot all labs are back [facility] 36 Name of caller: Fadumo lee Contact phone number: [phone] Relationship to Patient: patient Provider: Dr. Kwok Practice: [facility] Chief Complaint/Reason for Call: Polina called in to get the results of her labs. Please call Polina with results Best time of day caller can be reached: any Patient advised that office/PCP has 24-48 business hours to return their call: Yes [facility] Bacteria identified Cx Nom ( U)on 12-15-2023 [facility] Urine cultureon 12-15-2023 Bacteria identified Cx Nom (U) SEE NOTE [facility] Comment on above: CULTURE, URINE, ROUTINE Micro Number: [id number] Test Status: Final Specimen Source: Urine Specimen Quality: Adequate Result: Less than 10,000 CFU/mL of single Gram positive organism isolated. No further testing will be performed. If clinically indicated, recollection using a method to minimize contamination, with prompt transfer to Urine Culture Transport Tube, is recommended. Urinalysis macro (dipstick) panel (U)on 12-13-2023 Bilirubin, UA Negative [facility] Blood, UA Negative [facility] Glucose, UA Negative [facility] Interpretation and review of laboratory results Abnormal [facility] Ketones, POC (mg/dL) 15 mg/dL [facility] Leukocytes, UA Negative [facility] Nitrite, UA Negative [facility] pH, UA 6.0 [facility] Protein, UA Negative [facility] Spec Grav, UA 1.015 [facility] Urobilinogen, UA 0.2 [facility] LABORATORYOrdered By: Isha Mancera on 04-11-2023 S. [...] Group A Strep PCR Negative Normal Negative [facility] ([place]) Comment on above: Performed By: #### S JOSE #### Mirna [address] [address] Group A Strep PCR Int Normal [facility] ([place]) Comment on above: Result Comment: Nega tive [...] infections. See Interp Performed By: #### S TREPA #### [address] [address] XR CHEST 1 VIEWon 04-11-2023 XR CHEST [...] 04/11/2023 2:18:16 PM Ordering Provider: DAWSON Salas [facility] ([place] .Urinalysis Microscopic (AO) on 02-18-2023 UA Bacteria 1+ /hpf Abnormal [facility] ([place] Comment on above: Performed By: #### U A, PREGU, UAMICAO #### [address] [address] UA RBC 0-5 Abnormal None Seen [facility] [place] Comment on above: Performed By: #### U A, PREGU, UAMICAO #### [address] [address] UA Squam Epithelial 0-5 Abnormal None Seen [facility] ([place]) Comment on above: Performed By: #### U A, PREGU, UAMICAO #### [address] [address] UA WBC LOADED Abnormal None Seen [facility] ([place] Comment on above: Performed By: #### U A, PREGU, UAMICAO #### [address] [address] LABORATORYOrdered By: Coby Rivera on 02-18-2023 Appearance [...] HCG ( test) Ql (U) Negative Normal [facility] ([place] Comment on above: Performed By: #### U A, PREGU, UAMICAO #### [address] [address] test (u) int Not detected Invalid Interpretation Code [facility] ([place]) Comment on above: Performed By: #### U A, PREGU, UAMICAO #### [place] [address] UAon 02-18-2023 Color (U) Yellow Normal [facility] ([place] Comment on above: Performed By: #### U A, PREGU, UAMICAO #### [place] [address] Glucose (U) [Mass/Vol] Negative Normal Negative [facility] ([place]) Comment on above: Performed By: #### U A, PREGU, UAMICAO #### [place] [address] Ketones Ql (U) Negative Normal Negative [facility] ([place] Comment on above: Performed By: #### U A, PREGU, UAMICAO #### [place] [address] UA Appear Clear Normal Clear [facility] ([place] Comment on above: Performed By: #### U A, PREGU, UAMICAO #### [place] [address] UA Blood Trace Abnormal Negative [facility] ([place] Comment on above: Performed By: #### U A, PREGU, UAMICAO #### [place] [address] UA Leuk Est Trace Abnormal Negative [facility] ([place] Comment on above: Performed By: #### U A, PREGU, UAMICAO #### [place] [address] UA Nitrite Negative Normal Negative [facility] ([place] Comment on above: Performed By: #### U A, PREGU, UAMICAO #### [place] [address] UA pH 8.0 Normal 5.0 - 8.0 [facility] ([place] Comment on above: Performed By: #### U A, PREGU, UAMICAO #### [place] [address] UA Protein Negative Normal Negative [facility] ([place] Comment on above: Performed By: #### U A, PREGU, UAMICAO #### [place] [address] UA Spec Grav 1.020 Normal 1.015-1.025 [facility] ([place] Comment on above: Performed By: #### U A, PREGU, UAMICAO #### [place] [address] UA Specimen Type Void Normal [facility] ([place] Comment on above: Performed By: #### U A, PREGU, UAMICAO #### [place] [address] UA Urobilinogen 0.2 E.U./dL Normal 0.2-1.0 [facility] ([place] Comment on above: Performed By: #### U A, PREGU, UAMICAO #### [place] [address] Urobilinogen (U) [Mass/Vol] Negative Normal Negative [facility] ([place] Comment on above: Performed By: #### U A, PREGU, UAMICAO #### [place] [address] LABORATORYOrdered By: Isha Mancera on 04-14-2022 Appearance [...] AO Chemistry S GFR Non- 89 ml/min/1.73sqm Inval id Interpretation Code AO Chemistry S LABORATORYOrdered By: [...] Radiology ACCESSION EXAM DATE/TIME PROCEDURE ORDERING PROVIDER [id number] 09/16/2021 13:27 EDT CR Foot Complete 3+ SOPHIE GERMAN Views Bilateral CPT code 86076 Reason For Exam (CR Foot Complete 3+ [...] Transcribed Date and Time: 09/17/2021 1:22 Normal [facility] LABORATORYOrdered By: Justina Wilde on 07-23-2021 Albumin [...] AO Chemistry S GFR Non- 110 ml/min/1.73sqm Inva lid Interpretation Code AO Chemistry S CULTURE URINEon 06-14-2021 CULTURE URINE CULTURE URINE --> Status: F Normal urogenital lois present. Normal [facility] Comment on above: Performed By: #### C /UR #### [facility] [address] [place] [address] Group A Strep Screen by PCRo n 06-13-2021 Group A Strep Screen by PCR Group A Strep Screen by PCR --> Status: F NOT Detected Expected Result: Not Detected Methodology - Real Time PCR (Cepheid) Expected Result: Not Detected Methodology - Real Time PCR (Cepheid) Normal [facility] Comment on above: Performed By: #### C UA2, HCGUR, STRP3 #### [facility] [address] [place] [address] #### GASPC #### [facility] [address] [place] [address] CR Chest PA/LATon 06-12-2021 CR Chest PA/LAT Patient Name: POLINA GIRON Diagnostic Radiology ACCESSION EXAM DATE/TIME PROCEDURE ORDERING PROVIDER [id number] 06/12/2021 11:51 EST CR Chest PA and LAT MD JOVANY, MARTÍN Sanchez CPT code 10610 Reason For Exam (CR Chest PA and [...] Transcribed Date and Time: 06/12/2021 12:01 Normal [facility] Complete Urinalysison 2021 Bacteria Few (1-5) Abnormal Negative [facility] Comment on above: Result Comment: . Performed By: #### C UA2, HCGUR, STRP3 #### [facility] [address] [place] [address] #### GASPC #### [place] [address] [address] RBC, Urine 0 - 2 Normal 0-2 [facility] Comment on above: Result Comment: . Performed By: #### C UA2, HCGUR, STRP3 #### [facility] [address] [place] [address] #### GASPC #### [place] [address] [place] [address] Squamous Epithelial 6 - 10 Abnormal 3-5 [facility] Comment on above: Result Comment: . Performed By: #### C UA2, HCGUR, STRP3 #### [facility] [address] [place] [address] #### GASPC #### [place] [address] [address] VOLUME, URINE 12 ml Normal [facility] Comment on above: Result Comment: . Performed By: #### C UA2, HCGUR, STRP3 #### [facility] [address] [place] [address] #### GASPC #### [facility] [address] [place], [place] WBC, Urine 0 - 2 Normal 0-5 [facility] Comment on above: Result Comment: . Performed By: #### C UA2, HCGUR, STRP3 #### [facility] [address] [place] [address] #### GASPC #### [place] [address] [address] [place], [place] Appearance (U) Clear Normal Clear [facility] Comment on above: Result Comment: . Performed By: #### C UA2, HCGUR, STRP3 #### [facility] [address] [place] [address] #### GASPC #### [place] [address] [address] [place], [place] Bilirubin,Urine Negative Normal Negative [facility] Comment on above: Result Comment: . Performed By: #### C UA2, HCGUR, STRP3 #### [address] [place] [address] #### GASPC #### [place] [address] [address] [place], [place] Color (U) YELLOW Normal Lt. Yellow [facility] Comment on above: Result Comment: . Performed By: #### C UA2, HCGUR, STRP3 #### [facility] [address] [place] [address] #### GASPC #### [place] [address] [address] [place], [place] Glucose Ql (U) Normal Normal Normal (<70) [facility] Comment on above: Result Comment: . Performed By: #### C UA2, HCGUR, STRP3 #### [facility] [address] [place] [address] #### GASPC #### [place] [address] [address] [place], [place] Ketone,Urine 20 mg/dL Abnormal Negative [facility] Comment on above: Result Comment: . Performed By: #### C UA2, HCGUR, STRP3 #### [address] [place] [address] #### GASPC #### [address] [address] Leukocytes,Urine Negative Normal Negative [facility] Comment on above: Result Comment: . Performed By: #### C UA2, HCGUR, STRP3 #### [address] [place] [address] #### GASPC #### [address] [address] Nitrites,Urine Negative Normal Negative [facility] Comment on above: Result Comment: . Performed By: #### C UA2, HCGUR, STRP3 #### [address] [place] [address] #### GASPC #### [address] Occult Blood,Urine Negative Normal Negative [facility] Comment on above: Result Comment: . Performed By: #### C UA2, HCGUR, STRP3 #### [address] [place] [address] #### GASPC #### [address] pH,Urine 6.0 Normal 5.0-8.0 [facility] Comment on above: Result Comment: . Performed By: #### C UA2, HCGUR, STRP3 #### [address] [place] [address] #### GASPC #### [place] [address] [address] [place], [place] Protein (U) [Mass/Vol] 20 mg/dL Abnormal Negative [facility] Comment on above: Result Comment: . Performed By: #### C UA2, HCGUR, STRP3 #### [address] [place] [address] #### GASPC #### [place] [address] [address] [place], [place] Specific [place],Urine 1.019 Normal 1.005 - 1.030 [facility] Comment on above: Result Comment: . Performed By: #### C UA2, HCGUR, STRP3 #### [facility] [address] [place] [address] #### GASPC #### [facility] [address] [place] [address] Urobilinogen,Urine Normal Normal Normal (0-1) [facility] Comment on above: Result Comment: . Performed By: #### C UA2, HCGUR, STRP3 #### [facility] [address] [place] [address] #### GASPC #### [facility] [address] [place] [address] HCG,Urine Qualon 06-12-2021 Beta HCG ( test) Ql (U) Negative Normal Negative [facility] Comment on above: Result Comment: Plea se note: Very dilute urine specimens, as indicated by a low specific gravity, may not contain equal opportunity representative levels of hCG. If is still suspected, a first morning urine specimen should be collected 48 hours later and tested. is the most common reason for HCG in urine, although choriocarcinoma, hydatidiform mole, and certain nontropho- blastic malignancies also result in detectable urinary HCG levels. Sensitivity = 20mIU/mL. Performed By: #### C UA2, HCGUR, STRP3 #### [facility] [address] [place] [address] #### GASPC #### [facility] [address] [place] [address] SARS-CoV-2, Flu A/B and RSVo n 06-12-2021 SARS-CoV-2 (COVID-19) RNA MICHELLE+probe Ql (Unsp spec) SARS-CoV-2 --> Status: F DETECTED Flu A PCR --> Status: F Not Detected. Flu B PCR --> Status: F Not Detected. RSV PCR --> Status: F Not Detected. Expected Result: Not Detected _ Method: Real-time, RT-PCR This assay was developed by [employer] and distributed under an Emergency Use Authorization (EUA) granted by the FDA for the qualitative detection of nucleic acids from SARS-CoV-2, Influenza A, Influenza B, and Respiratory Syncytial Virus. Provider and patient fact sheets can be found at https://www.fda.gov/medi a/466359/download and https://www.fda.gov/medi a/922893/download. Expected Result: Not Detected _ Method: Real-time, RT-PCR This assay was developed by [employer] and distributed under an Emergency Use Authorization (EUA) granted by the FDA for the qualitative detection of nucleic acids from SARS-CoV-2, Influenza A, Influenza B, and Respiratory Syncytial Virus. Provider and patient fact sheets can be found at https://www.[facility].gov/medi a/069028/download and https://www.fda.gov/medi a/081876/download. Normal [facility] Comment on above: Performed By: #### C VFLR #### [facility] [address] [place] [address] , [address] Strep A Rapidon 06-12-2021 S. pyogenes Ag IA Ql (Unsp spec) see below Normal Negative [facility] Comment on above: Result Comment: NEGA TIVE (presumptive) for Group A Streptococcus antigen. Method: Immunochromatographic assay. Confirmatory testing to follow. Confirmatory testing performed at an additional cost. Performed By: #### C UA2, HCGUR, STRP3 #### [facility] [address] [place] [address] #### GASPC #### [address] [address] ED NOTEon 12-23-2020 ED NOTE HNO ID: [id number] Author: Lia Yun RN Service: ? Author Type: Registered Nurse Type: ED Notes Filed: 12/23/2020 8:56 AM Note Text: Patient report to MMT. Patient stable and assisted onto the cot. Patient cooperative. [facility] ED NOTE HNO ID: [id number] Author: Duglas Dumont RN Service: ? Author Type: Registered Nurse Type: ED Notes Filed: 12/23/2020 7:07 AM Note Text: ED security at doorway, patient relaxing at this time. PINK SLIP sent to central intake. [facility] ED NOTE HNO ID: [id number] Author: Duglas Dumont RN Service: ? Author Type: Registered Nurse Type: ED Notes Filed: 12/23/2020 6:37 AM Note Text: Maricel from was called to find out update, do not have an update at this time, said she was going to look into this [facility] ED NOTE HNO ID: [id number] Author: Duglas Dumont RN Service: ? Author Type: Registered Nurse Type: ED Notes Filed: 12/23/2020 6:29 AM Note Text: Patient up out of bed, yelling that she wants to go. Nurse trying to explain that she has been pink slipped and she cannot go. Security at doorway. Patient still yelling wants to talk to her rapid extractor operator. [facility] ED NOTE HNO ID: [id number] Author: Duglas Dumont RN Service: ? Author Type: Registered Nurse Type: ED Notes Filed: 12/23/2020 5:14 AM Note Text: Patient is getting agitated said that she was ready to go, has been here for 2 days, MD Jin talked to patient about the plan... denies want for food or drink [facility] ED NOTE HNO ID: [id number] Author: Duglas Dumont RN Service: ? Author Type: Registered Nurse Type: ED Notes Filed: 12/23/2020 4:48 AM Note Text: Central intake called for update, no new update at this time. Patient was referred out to [facility] and paul tamayo [facility] ED NOTE HNO ID: [id number] Author: Duglas Dumont RN Service: ? Author Type: Registered Nurse Type: ED Notes Filed: 12/23/2020 4:23 AM Note Text: Patient states she is not going to get transfer or she is going to get her rapid extractor operator patient is angry, says she has done everything she has to do here, ready to go to [place] and get her stuff [facility] [facility] HNO ID: [id number] Author: Duglas Dumont RN Service: ? Author Type: Registered Nurse Type: ED Notes Filed: 12/23/2020 4:24 AM Note Text: Spoke with central intake, at this time did not have an update Normal [facility] ED PROV NOTEon 12-23-2020 ED PROV NOTE HNO ID: [id number] Author: Liliam Jin MD Service: ? Author [...] on her own. Patient was accepted at [facility]. Patient will be transferred in stable condition Liliam Jin MD 12/23/2049 Liliam Jin MD 12/23/20 0658 [facility] Acetaminophenon 12-22-2020 Acetaminophen [Mass/Vol] ug/mL Low 10-30 [facility] Comment on above: Result Comment: Toxi c > 150 ug/mL 4 hours post ingestion The Melia Palmer nomogram can be used to estimate the probability of hepatotoxicity via the relationship of plasma acetaminophen concentration to the post ingestion interval. (Robby. Pediatrics. 1975. 55:871 to 876 and Melia et al. Arch Label Maker Med. 1981. 141:380 to 385). Reference ranges and high/low indicator flags are provided as general guidelines only. The treating physician must determine appropriate target levels/dosing based on the specific clinical situation. Performed By: #### C BCDIF, CMP, ACETM, ALCO, SALI ####[facility] Sgdwdmrdot1047 [address] CBC and Differentialon 12-22 Abs Baso <0.03 Normal <0.11 [facility] Comment on above: Performed By: #### C BCDIF, CMP, ACETM, ALCO, SALI ####[facility] [address] [place] [id number] Abs Eosin <0.03 Normal <0.46 [facility] Comment on above: Performed By: #### C BCDIF, CMP, ACETM, ALCO, SALI ####[facility] [address] [place] [phone] Abs Bradford 0.66 k/uL Normal <0.87 [facility] Comment on above: Performed By: #### C BCDIF, CMP, ACETM, ALCO, SALI ####[facility] [address] [place] [address] Abs Neut 8.70 k/uL High 1.45-7.50 [facility] Comment on above: Performed By: #### C BCDIF, CMP, ACETM, ALCO, SALI ####[facility] [address] [place] [address] Absolute nRBC <0.01 Normal <0.01 [facility] Comment on above: Performed By: #### C BCDIF, CMP, ACETM, ALCO, SALI ####[facility] [address] [place] [address] Basophils/100 WBC (Bld) 0.2 % Normal [facility] Comment on above: Performed By: #### C BCDIF, CMP, ACETM, ALCO, SALI ####[facility] [address] [place] [address] DTYPE Auto Diff Normal [facility] Comment on above: Performed By: #### C BCDIF, CMP, ACETM, ALCO, SALI ####[place] [address] Eosinophils/100 WBC (Bld) 0.1 % Normal [facility] Comment on above: Performed By: #### C BCDIF, CMP, ACETM, ALCO, SALI ####[facility] [address] [place] [address] Erythrocyte distribution width (RBC) [Ratio] 13.2 % Normal 11.5-15.0 [facility] Comment on above: Performed By: #### C BCDIF, CMP, ACETM, ALCO, SALI ####[place] [address] Hematocrit (Bld) [Volume fraction] 40.6 % Normal 36.0-46.0 [facility] Comment on above: Performed By: #### C BCDIF, CMP, ACETM, ALCO, SALI ####[facility] [address] [place] [address] Hemoglobin (Bld) [Mass/Vol] 13.7 g/dL Normal 11.5-15.5 [facility] Comment on above: Performed By: #### C BCDIF, CMP, ACETM, ALCO, SALI ####[facility] [address] [place] [address] Lymphocytes (Bld) [#/Vol] 1.25 10*3/uL Normal 1.00-4.00 [facility] Comment on above: Performed By: #### C BCDIF, CMP, ACETM, ALCO, SALI ####[facility] [address] [place] [address] Lymphocytes/100 WBC (Bld) 11.7 % Normal [facility] Comment on above: Performed By: #### C BCDIF, CMP, ACETM, ALCO, SALI ####[facility] [address] [place] [address] MCH 33.3 pG Normal 26.0-34.0 [facility] Comment on above: Performed By: #### C BCDIF, CMP, ACETM, ALCO, SALI ####[facility] [address] [place] [address] MCHC (RBC) [Mass/Vol] 33.7 g/dL Normal 30.5-36.0 [facility] Comment on above: Performed By: #### C BCDIF, CMP, ACETM, ALCO, SALI ####[facility] [address] [place] [address] MCV (RBC) [Entitic vol] 98.8 fL Normal 80.0-100.0 [facility] Comment on above: Performed By: #### C BCDIF, CMP, ACETM, ALCO, SALI ####[facility] [address] [place] [address] Monocytes/100 WBC (Bld) 6.2 % Normal [facility] Comment on above: Performed By: #### C BCDIF, CMP, ACETM, ALCO, SALI ####[facility] [address] [place] [address] Neutrophils/100 WBC (Bld) 81.8 % Normal [facility] Comment on above: Performed By: #### C BCDIF, CMP, ACETM, ALCO, SALI ####[facility] [address] [place] [address] NRBCs 0.0 /100 WBC Normal 0 [facility] Comment on above: Performed By: #### C BCDIF, CMP, ACETM, ALCO, SALI ####[facility] [address] [place] [address] Platelet mean volume (Bld) [Entitic vol] 9.5 fL Normal 9.0-12.7 [facility] Comment on above: Performed By: #### C BCDIF, CMP, ACETM, ALCO, SALI ####[facility] [address] [place] [address] Platelets (Bld) [#/Vol] 246 10*3/uL Normal 150-400 [facility] Comment on above: Performed By: #### C BCDIF, CMP, ACETM, ALCO, SALI ####[place] [address] RBC (Bld) [#/Vol] 4.11 10*6/uL Normal 3.90-5.20 [facility] Comment on above: Performed By: #### C BCDIF, CMP, ACETM, ALCO, SALI ####[facility] [address] [place] [address] WBC (Bld) [#/Vol] 10.64 10*3/uL Normal 3.70-11.00 [facility] Comment on above: Performed By: #### C BCDIF, CMP, ACETM, ALCO, SALI ####[facility] [address] [place] [address] Comp Metabolic Panelon 12-22 Albumin [Mass/Vol] 4.5 g/dL Normal 3.9-4.9 [facility] Comment on above: Performed By: #### C BCDIF, CMP, ACETM, ALCO, SALI ####[facility] [address] [place] [address] ALP [Catalytic activity/Vol] 63 U/L Normal 34-123 [facility] Comment on above: Performed By: #### C BCDIF, CMP, ACETM, ALCO, SALI ####[facility] [address] [place] [address] ALT [Catalytic activity/Vol] 26 U/L Normal 7-38 [facility] Comment on above: Performed By: #### C BCDIF, CMP, ACETM, ALCO, SALI ####[facility] [address] [place] [address] Anion gap [Moles/Vol] 14 mmol/L Normal 9-18 [facility] Comment on above: Performed By: #### C BCDIF, CMP, ACETM, ALCO, SALI ####[facility] [address] [place] [address] AST [Catalytic activity/Vol] 23 U/L Normal 13-35 [facility] Comment on above: Performed By: #### C BCDIF, CMP, ACETM, ALCO, SALI ####[facility] [address] [place] [address] Bilirubin [Mass/Vol] 0.5 mg/dL Normal 0.2-1.3 [facility] Comment on above: Performed By: #### C BCDIF, CMP, ACETM, ALCO, SALI ####[facility] [address] [place] [address] Calcium [Mass/Vol] 9.7 mg/dL Normal 8.5-10.2 [facility] Comment on above: Performed By: #### C BCDIF, CMP, ACETM, ALCO, SALI ####[facility] [address] [place] [address] Chloride [Moles/Vol] 105 mmol/L Normal 97-105 [facility] Comment on above: Performed By: #### C BCDIF, CMP, ACETM, ALCO, SALI ####[facility] [address] [place], [place] [id number] CO2 [Moles/Vol] 21 mmol/L Low 22-30 [facility] Comment on above: Performed By: #### C BCDIF, CMP, ACETM, ALCO, SALI ####[facility] Kmrxcekyat6889 [address] Creatinine [Mass/Vol] 0.69 mg/dL Normal 0.58-0.96 [facility] Comment on above: Performed By: #### C BCDIF, CMP, ACETM, ALCO, SALI ####[facility] Ifgkojtbsg6882 [address] eGFR- Amer. >60 Normal [facility] Comment on above: Performed By: #### C BCDIF, CMP, ACETM, ALCO, SALI ####[facility] [address] [place] [phone] eGFR-All Other Races >60 Normal [facility] Comment on above: Result Comment: eGFR [...] #### C BCDIF, CMP, ACETM, ALCO, SALI ####[facility] Wb[address]fxqpmy3433 [address] Glucose [Mass/Vol] 110 mg/dL High 74-99 [facility] Comment on above: Result Comment: The [place] [employer] (ADA) provides guidance for cutoff [...] Standards of Medical Care in Diabetes 2016, [place] [employer]. Diabetes Care. 2016.39(Suppl 1). Performed By: #### C BCDIF, CMP, ACETM, ALCO, SALI ####[facility] Kbung[address]osf1059 [address] Potassium [Moles/Vol] 3.5 mmol/L Low 3.7-5.1 [facility] Comment on above: Performed By: #### C BCDIF, CMP, ACETM, ALCO, SALI ####[facility] Wngxnhamlx8905 [address] Protein [Mass/Vol] 7.3 g/dL Normal 6.3-8.0 [facility] Comment on above: Performed By: #### C BCDIF, CMP, ACETM, ALCO, SALI ####[facility] [address] [place] [address] Sodium [Moles/Vol] 140 mmol/L Normal 136-144 [facility] Comment on above: Performed By: #### C BCDIF, CMP, ACETM, ALCO, SALI ####[facility] [address] [place] [address] Urea nitrogen [Mass/Vol] 6 mg/dL Low 7-21 [facility] Comment on above: Performed By: #### C BCDIF, CMP, ACETM, ALCO, SALI ####[facility] Fkmerecotx1487 [address] ED NOTEon 12-22-2020 ED NOTE HNO ID: [id number] Author: Duglas Dumont RN Service: ? Author Type: Registered Nurse Type: ED Notes Filed: 12/23/2020 4:30 AM Note Text: After restraint removed noticed bruising to patient bilateral wrist area, around same area that restrained would have been. restraint were not to tight as patient was able to slip out of them. [facility] ED NOTE HNO ID: [id number] Author: Duglas Dumont RN Service: ? Author Type: Registered Nurse Type: ED Notes Filed: 12/22/2020 8:10 PM Note Text: Patient out of restraints at this time. Patient wanted to be out of restraints, patient took off bilateral arm restraints herself. Garrett MATRINEZ called nurse over, talked to patient about being calm and she asked if bilateral leg restraints could come off, took bilateral leg restraints off. Patient resting in bed, cooperative at this time. [facility] ED NOTE HNO ID: [id number] Author: Summer Abarca RN Service: ? Author [...] w help from inhouse oma and yane sitavril holding her down w me medicating. [facility] ED NOTE HNO ID: [id number] Author: Duglas Dumont, MARIE Service: ? Author Type: Registered Nurse Type: ED Notes Filed: 12/22/2020 7:49 PM Note Text: .Assumed care of patient, received report from off going nurse. Patient in 4 point violent restraints at this time, resting in bed. PCNA Garrett at bedside, 1:1 sitter [facility] ED NOTE HNO ID: [id number] Author: Summer Abarca RN Service: ? Author Type: Registered Nurse Type: ED Notes Filed: 12/22/2020 8:11 PM Note Text: Pt still appears agitated and wants to get up- pt at this time in restraints for safety . In house pd outside door, sitter yane in doorway . Pt in nad. Remains on cm. Vss.. restraints not too tight or causing pain. [facility] ED NOTE HNO ID: [id number] Author: Summer Abarca RN Service: ? Author [...] by in-house pd oma, myself and yane wilkins. I had already had the meds drawn [...] for good pulses and not too tight. airborne mission systems to room, colton Waters rn and Marie tate NOM -all aware and down outside door of room 8 . (as well as 2 more security). Pt at no time co pain anywhere and jalil well. Yane wilkins instructed that we need to offer bathrm , food or drink breaks and to cont check all 4 limbs for redness or pain. [facility] ED NOTE HNO ID: [id number] Author: Reddy Gimenez MD Service: ? Author [...] medically clear, awaiting placement. Reddy Gimenez MD [facility] ED NOTE HNO ID: [id number] Author: Summer Abarca RN Service: ? Author Type: Registered Nurse Type: ED Notes Filed: 12/22/2020 3:34 PM Note Text: [facility] ED NOTE HNO ID: [id number] Author: PHIL Regalado Service: ? Author Type: Clinical Welfare Investigator Type: ED Notes Filed: 12/22/2020 3:13 PM Note Text: Cordless phone removed from pt.'s room [facility] ED NOTE HNO ID: [id number] Author: Yane Flores, [place] Service: ? Author Type: Clinical Welfare Investigator Type: ED Notes Filed: 12/22/2020 3:17 PM Note Text: Pt on the phone with intake at this time. [facility] ED NOTE HNO ID: [id number] Author: Summer Abarca RN Service: ? Author Type: Registered Nurse Type: ED Notes Filed: 12/22/2020 3:36 PM Note Text: Went to give these meds, haldol and ativan because pt was starting to get angry again and wanting to leave. [facility] ED NOTE HNO ID: [id number] Author: Yane Flores, CT Service: ? Author Type: Clinical Welfare Investigator Type: ED Notes Filed: 12/22/2020 2:50 PM Note Text: Pt is refusing to keep blood pressure cuff on. Pt is getting agitated. [facility] ED NOTE HNO ID: [id number] Author: Yane Flores, CT Service: ? Author Type: Clinical Welfare Investigator Type: ED Notes Filed: 12/22/2020 12:29 PM Note Text: Pt stated. Would like for her belongings be removed from boyfriends house. [facility] ED NOTE HNO ID: [id number] Author: Summer Abarca RN Service: ? Author Type: Registered Nurse Type: ED Notes Filed: 12/22/2020 11:45 AM Note Text: Pt medicated w 200 ketamine. Director Power. Pt at this time still appears anxious/ [...] pt yelling out I told the fucking copyright expert. I dont fucking care. I better not catch a charge. I was honest. I told them I use marijuana. pt sts hx suicidal. I have been suicidal. I was today. sts this is first time I did anything to hurt myself . [facility] ED NOTE HNO ID: [id number] Author: Alcira Perkins RN Service: ? Author Type: Registered Nurse Type: ED Notes Filed: 12/22/2020 10:52 AM Note Text: Bed: ED-08 Expected date: 12/22/20 Expected time: 10:30 AM Means of arrival: [place] [facility] Comments: [facility] ED PROV NOTEon 12-22-2020 ED PROV NOTE HNO ID: [id number] Author: Cherise Nieves MD Service: ? Author Type: Physician Type: ED Provider Notes Filed: 12/22/2020 1:35 PM Note Text: ED Provider Note Patient Name: Polina Giron SERVICE DATE: 12/22/20 History Patient presents with: Psychiatric Problem: ketamine provided on scene 200--[facility] and then when heard she had to come in got very angry, swinging at everyone, per didnt make contact. pt cut self on wrists and neck. per pt was upset w bf accusing him of using her credit card. pt has psych hx Patient with h/o ADHD and Bipolar disorder who presents with cuts to anterior throat and wrists bilaterally from yesterday. Child Care Centre Manager's department was called to her resident today after she got into a verbal altercation with her S.O.. She accused him of stealing her visa. She was very agitated pacing. Child Care Centre Manager's deputy saw scabbed superficial lacerations to her [...] knee reconstruction, ACL left - SECTION HX 2014 FAMILY HISTORY Problem Relation Age of Onset [...] symmetric. Psych (more content not included)... Normal [facility] Ethanolon 12-22-2020 Ethanol [Mass/Vol] mg/dL Normal <11 [facility] Comment on above: Performed By: #### C BCDIF, CMP, ACETM, ALCO, SALI ####[facility] [address] [place] [phone] Expedited [id number] 12-23-19 21 SARS-CoV-2 (COVID-19) RNA MICHELLE+probe Ql (Unsp spec) UPPER RESPIRATORY TRACT SWAB Normal [facility] Comment on above: Performed By: #### E XCOVD ####[facility] Aym[address]ufhrja4494 [address] SARS-CoV-2 (COVID-19) RNA MICHELLE+probe Ql (Unsp spec) Negative for COVID19 (SARS CoV2) by RT-PCR or equivalent method. Normal Negative for COVID19 (SARS CoV2) by RT-PCR or equivalent method. [facility] Comment on above: Result Comment: This test has been authorized by FDA under an Emergency Use Authorization (EUA). Performed By: #### E XCOVD ####[facility] [address] [place] [phone] Salicylateon 12-22-2020 Salicylate <0.3 Low 3.0-30.0 [facility] Comment on above: Result Comment: The therapeutic range varies and has been reported to be 3.0 to 10.0 mg/dL for anti pyretic/analgesic conditions and 15.0 to 30.0 mg/dL for anti inflammatory/rheumatic fever conditions. Ranges published by the instrument anode machine operator. Reference ranges and high/low indicator flags are provided as general guidelines only. The treating physician must determine appropriate target levels/dosing based on the specific clinical situation. Performed By: #### C BCDIF, CMP, ACETM, ALCO, SALI ####[facility] [address] [place] [address] Toxicology Screen,Uron 12-22 Amphetamines, Urine Positive Critically abnormal Negative [facility] Comment on above: Result Comment: Cuto ff threshold at 1000 ng/mL. Performed By: #### U TOX2, UA ####[place] [address] Barbiturates, Urine Negative Normal Negative [facility] Comment on above: Result Comment: Cuto ff threshold at 200 ng/mL. Performed By: #### U TOX2, UA ####[place] [address] Benzodiazepines, Ur Negative Normal Negative [facility] Comment on above: Result Comment: Cuto ff threshold at 200 ng/mL. Performed By: #### U TOX2, UA ####[place] [address] Cannabinoids, Urine Positive Critically abnormal Negative [facility] Comment on above: Result Comment: Cuto ff threshold at 50 ng/mL. Performed By: #### U TOX2, UA ####[place] [address] Cocaine, Urine Negative Normal Negative [facility] Comment on above: Result Comment: Cuto ff threshold at 300 ng/mL. Performed By: #### U TOX2, UA ####[place] [address] Opiates, Urine Negative Normal Negative [facility] Comment on above: Result Comment: Cuto ff threshold at 300 ng/mL. Performed By: #### U TOX2, UA ####[facility] [address] [place] [address] Oxycodone, Urine Negative Normal Negative [facility] Comment on above: Result Comment: Cuto ff [...] on the same specimen through Client Services ([phone]) if contacted within 48 hours of initial testing. [1]Substance Abuse and Mental Health Services Administration (2012). Clinical Drug Testing in Primary Care Technical Assistance Publication Series 32. Department of Health and Human Services, [place], p.10. Performed By: #### U TOX2, UA ####[facility] [address] [place] [address] Phencyclidine, Urine Negative Normal Negative [facility] Comment on above: Result Comment: Cuto ff threshold at 25 ng/mL. Performed By: #### U TOX2, UA ####[facility] [address] [place] [address] Urinalysison 12-22-2020 Bilirubin, Urine Negative Normal Negative [facility] Comment on above: Performed By: #### U TOX2, UA ####[facility] [address] [place] [address] Clarity (U) Clear Normal Clear [facility] Comment on above: Performed By: #### U TOX2, UA ####[facility] [address] [place] [address] Color (U) Yellow Normal Yellow [facility] Comment on above: Performed By: #### U TOX2, UA ####[place] [address] Glucose Ql (U) Negative Normal Negative [facility] Comment on above: Performed By: #### U TOX2, UA ####[facility] [address] [place] [address] Hemoglobin/Blood,Ur Negative Normal Negative [facility] Comment on above: Performed By: #### U TOX2, UA ####[facility] [address] [place] [address] Ketones Ql (U) 1+ Critically abnormal Negative [facility] Comment on above: Performed By: #### U TOX2, UA ####[facility] [address] [place] [address] Leukest Negative Normal Negative [facility] Comment on above: Performed By: #### U TOX2, UA ####[facility] [address] [place] [address] Nitrite Ql (U) Negative Normal Negative [facility] Comment on above: Performed By: #### U TOX2, UA ####[facility] [address] [place] [address] pH (U) 6.0 [pH] Normal 5.0-8.0 [facility] Comment on above: Performed By: #### U TOX2, UA ####[facility] [address] [place] [address] Protein, Urine Negative Normal Negative [facility] Comment on above: Performed By: #### U TOX2, UA ####[facility] [address] [place] [address] Specific [place], Ur 1.020 Normal 1.005-1.030 [facility] Comment on above: Performed By: #### U TOX2, UA ####[facility] [address] [place] [address] Urobilinogen Qn (U) 0.2 {[place]'U}/dL Normal 0.2-1.0 [facility] Comment on above: Performed By: #### U TOX2, UA ####[facility] [address] [place] [address] Serum Beta HCG East/FH/KRISTY/ME D/SL/LOon 12-21-2020 Serum Beta HCG [facility]//KRISTY/MED/SL/LO Negative Normal Negative [facility] Comment on above: Result Comment: Fals e positives and false negatives are rare but have been described. Clinical correlation of the findings is recommended. Performed By: #### B ETAMM ####[facility] [address] [place] [address] CNPNon 08-04-2020 [facility] Telephone (INTMWS) -------- POLINA GIRON ([id number]) 1990 F Date Time Provider Department 08/04/20 NO PCP INTMWS During your visit today, we recorded the following information about you: Rosangela Moran Raymond RN 08/04/2020 9:04 AM Signed Patient reports [...] itchy. Patient reports her pcp is in [place]. Agreeable to contact pcp for advise. Allergies As of Date: 08/04/2020 Noted Allergy Reaction IBUPROFEN 10/18/2018 8 - GI Upset TYLENOL #3 (CODEINE) 06/01/2007 8 - GI Upset VICODIN (HYDROCODONE-ACETAMINOPH E*06/01/2007 8 - GI Upset Date Reviewed: 07/30/2020 [...] 04/05/2013 Obesity [E66.9] Encounter Status:Closed by Rosangela HOWE RN on 08/04/20 [facility] Sary 08-03-2020 CNPN Telephone (WSTR) -------- POLINA GIRON ([id number]) 1990 F Date Time Provider Department 08/03/20 AR LIMAWSTR During your visit today, we recorded the following information about you: Avani Prieto DAYAN 08/03/2020 10:55 AM Signed Patient calling was in urgent care 07/30/[address] Lima called in rx for Amox 875 mg one tablet twice daily. Patient said she has rash and is itching. Asking if rx should be changed to something else? Patient uses [facility] for her pharmacy. Please advise Ar Lima MD 08/03/2020 11:37 AM Signed I assume amoxicillin was prescribed by ENT. It would be soto to hold the medication if having itching and rash, but please check with the prescribing physician for further recommendations for medication change or evaluation. Gilma Landin LPN 08/03/2020 12:13 PM Signed Pt notified of provider message. Will call ENT dr. Gilma Landin LPN Allergies As of Date: 08/03/2020 Noted Allergy Reaction IBUPROFEN 10/18/2018 8 - GI Upset TYLENOL #3 (CODEINE) 06/01/2007 8 - GI Upset VICODIN (HYDROCODONE-ACETAMINOPH E*06/01/2007 8 - GI Upset Date Reviewed: 07/30/2020 [...] Status:Closed by GILMA LANDIN [facility] (UCWSTR [facility] -------- POLINA GIRON ([id number]) 1990 F Date Time Provider Department 07/30/20 3:30 PM AR LIMA [facility] During your visit today, we recorded the [...] TO ENT - established patient with Grecia HATHAWAY, facilitated appointment this afternoon. 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 Normal [facility] Initial Visit (Gastroenterol ogy)on 05-14-2020 Initial Visit [...] abdominal pain; DERREK = N; Sent To: [facility]; Last Updated By: [employer]; 05/14/2020 1:58:28 PM Nausea with vomiting C Reactive Protein, Serum; Status:Active; Requested for:[id number]; Perform:Lab Services - Lab To Draw (Blood Test); Due:12Aug2020;Ordered; For:Nausea with vomiting; Ordered By:Lacey Javed; CELIAC DISEASE SEROLOGY PANEL; Status:Active; Requested for:[id number]; Perform:Lab Services - Lab To Draw (Blood Test); Due:12Aug2020;Ordered; For:Nausea with vomiting; Ordered By:Lacey Javed; Complete Blood Count + Differential; Status:Active; Requested for:[id number]; Perform:Lab Services - Lab To Draw (Blood [...] Gallbladder; Status:Hold For - Scheduling; Requested for:14May2020; Perform:[facility] Radiology Services Imaging; Due:12Aug2020;Ordered; For:Nausea with vomiting; Ordered By:Lacey Javed; Radiologist [...] mixing and drinking quickly. This product is cwnq-umy-aanaevm. 5. It is medically recommended that you stop smoking. There are several options available to you to assist in quitting. You can try pzki-adn-cftuaro nicotine patches or gum. You can also [...] consent was requested and obtained from POLINA GIRON on this date, 05/14/2020 01:30 PM , for a telehealth visit. GERD and IBS History of Present Wrpoalc19-lreh-bue female spoken to over telephone regarding a [...] cold, hot flashes and impaired glucose tolerance. Jonathan/Lymph: Denies anemia, blood transfusions, chemotherapy, enlarged lymph [...] Recorded By: Iona Fraser; 05/14/2020 1:13:34 PM [place] [facility] Recorded By: Iona Fraser; 05/14/2020 1:13:34 PM Current Meds Medication NameInstruction ARIPiprazole 15 MG Oral Tablet Cyclobenzaprine HCl - 10 MG Oral Tablet Dicyclomine HCl - 10 MG Oral Capsule Gabapentin 300 MG Oral Capsule Gabapentin 600 MG Oral Tablet lamoTRIgine 150 MG Oral Tablet QUEtiapine Fumarate 25 MG Oral Tablet Sertraline HCl - 100 MG Oral Tablet Vitals Vital Signs Recorded: [id number] 01:13PM Height5 ft 6 in Plxqnw350 lb BMI Erlzvzxzwi13.9 BSA Calculated2.04 Physical Exam Patient is alert and oriented throughout telephone call without conversational dyspnea or cough. Time Time Spent With Patient: 13.5 minutes of which greater than 50 percent was spent counseling and or coordinating care. Signatures Electronically signed by : Lacey Javed PA-C; May 14 2020 2:08PM EST (Author) [facility] brotips PROGRESSon 01-14-2019 PROGRESS HNO ID: [id number] Author: Jeni Pimentel Service: ? Author Type: Nurse Practitioner Type: Progress Notes Filed: 01/14/2019 12:49 PM Note Text: Patient no show for PST. Webb in Scheduling notified and will notify Dr. Collier's office. [facility] CNOVon 10-18-2018 CNOV Office Visit (NUAGAK ) -------- POLINA GIRON ([id number]) 1990 F Date Time Provider Department 10/18/18 [...] Age: [age] year old Sex: female MRN/E# [id number] Chief Complaint: Patient presents with: Back Pain: [...] Duration Units: Months Frequency: Continuous Intervention: Medication;Therapeutic techniques-CPRP;Cold;Hea t PAST MEDICAL HISTORY Diagnosis Date - Abnormal [...] mg by mouth once daily. Disp: Rfl: dextroamphetamine-amphet amine (ADDERALL) 20 mg tablet Take 20 mg [...] Ravin Collier MD Referring Provider: SON DELAROSA) [[id number]] Allergies As of Date: 10/18/2018 Noted Allergy Reaction IBUPROFEN 10/18/2018 8 - GI Upset TYLENOL #3 (CODEINE) 06/01/2007 8 - GI Upset VICODIN (HYDROCODONE-ACETAMINOPH E*06/01/2007 8 - GI Upset Date Reviewed: 10/18/2018 [...] Take 100 mg by mouth once shahid* DEXTROAMPHETAMINE-AMPHET AMINE* Take 20 mg by mouth twice shahid* [...] Status:Closed by RAVIN COLLIER MD on 10/18/18 [facility] PROGRESSon 10-18-2018 PROGRESS HNO ID: [id number] Author: Ravin Collier Service: ? Author Type: Physician Type: Progress Notes Filed: 10/18/2018 3:46 PM Note Text: NEUROSURGERY CONSULT NOTE Ravin Collier MD Date of visit: October 17, 2018 Patient Name: Ms.Brittney Rosangela Giron Date of : 1990 Current Age: [age] year old Sex: female MRN/E# [id number] Chief Complaint: Patient presents with: Back Pain: [...] Duration Units: Months Frequency: Continuous Intervention: Medication;Therapeutic techniques-CPRP;Cold;Hea t PAST MEDICAL HISTORY Diagnosis Date - Abnormal [...] mg by mouth once daily. Disp: Rfl: dextroamphetamine-amphet amine (ADDERALL) 20 mg tablet Take 20 mg [...] been discussed at length. [facility] (AGPOB1 ) -------- DEBBIETAMIKAPOLINA M ([id number]) 1990 F Date Time Provider Department 09/04/18 [...] MD, MD 09/04/2018 11:13 AM Signed HPI: Polinajesus Giron is a 28 year old female [...] had injection attempts in the past at [facility] without significant improvement?the pain was not this significant at that time however. Currently taking ibuprofen, motrin, flexeril, diclofenac without significant improvement. Using gabapentin as well from [facility]-but not making any difference @ 100 mg TID. PAST MEDICAL HISTORY Diagnosis Date - Abnormal Pap smear of cervix 05/2013 [facility] - ADHD (attention deficit hyperactivity disorder) - Bipolar disorder (HCC) - Gonorrhea 04/2013 - Obesity - Old disruption of anterior cruciate ligament ACL tear - [facility] - PAST MEDICAL HISTORY OF 04/24/09 [...] by mouth three times daily as needed. dextroamphetamine-amphet amine (ADDERALL) 20 mg tablet Take 20 mg [...] appearing, overweight female in NAD Head: is normocephalic/autraumati c Eyes: EOMI, sclera Clear Psych:Oriented x3. Tearful throughout exam, expresses frustration at ongoing pain, its effect on her day-to-day function Gait: Walks in a slouched forward position Lumbar spine: Range of motion is restricted, patient unable to stand fully erect, leans leftward?with right-sided leaning causes pain in the buttock and down the right leg. Reviewed report from [facility] showing disc extrusion at L4-5 with compression on the nerve root ASSESSMENT: (M54.41, G89.29) Chronic right-sided low back pain with right-sided sciatica PLAN: ? Discussed diagnosis and treatment options. ? Again encouraged attendance at physical therapy. ? Patient is not interested in surgical consultation at this time. ? After discussion?elected to set up referral to Misha/Cassandra pain management at [facility]. With hopes of injection at the L4-5 [...] Obed Samson MD Referring Provider: OBED SAMSON [[id number]] Allergies As of Date: 09/04/2018 Noted Allergy Reaction TYLENOL #3 (CODEINE) 06/01/2007 8 - GI Upset VICODIN (HYDROCODONE-ACETAMINOPH E*06/01/2007 8 - GI Upset Date Reviewed: 09/04/2018 Reviewed by: Obed Samson MD - Fully Assessed Reason for Visit: Follow Up [171] Cmt: Lumbar spine Visit Diagnosis:Chronic right-sided low back pain with right-sided sciatica [M54.41, G89.29] Order(s):MRI LUMBAR SPINE WO RADHAON [[id number]] Order #: [id number] CONSULT TO PAIN MGT ANESTHESIA [[id number]] Order #: [id number]: 1 Prescriptions as of 09/04/2018 Sig: DICLOFENAC POTASSIUM 50 MG TA* Take 1 tablet by mouth three * CYCLOBENZAPRINE 10 MG TABLET Take 1 tablet by mouth three * DEXTROAMPHETAMINE-AMPHET AMINE* Take 20 mg by mouth twice shahid* [...] Status:Closed by OBED SAMSON MD on 09/04/18 [facility] PROGRESSon 09-04-2018 PROGRESS HNO ID: [id number] Author: Obed Samson MD Service: ? Author [...] had injection attempts in the past at [facility] without significant improvement?the pain was not this significant at that time however. Currently taking ibuprofen, motrin, flexeril, diclofenac without significant improvement. Using gabapentin as well from [facility]-but not making any difference @ 100 mg [...] knee reconstruction, ACL left - SECTION HX 2014 Social History Socioeconomic History Marital status: Single [...] by mouth three times daily as needed. dextroamphetamine-amphet amine (ADDERALL) 20 mg tablet Take 20 mg [...] appearing, overweight female in NAD Head: is normocephalic/autraumati c Eyes: EOMI, sclera Clear Psych:Oriented x3. Tearful throughout exam, expresses frustration at ongoing pain, its effect on her day-to-day function Gait: Walks in a slouched forward position Lumbar spine: Range of motion is restricted, patient unable to stand fully erect, leans leftward?with right-sided leaning causes pain in the buttock and down the right leg. Reviewed report from [facility] showing disc extrusion at L4-5 with compression on the nerve root ASSESSMENT: (M54.41, G89.29) Chronic right-sided low back pain with right-sided sciatica PLAN: ? Discussed diagnosis and treatment options. ? Again encouraged attendance at physical therapy. ? Patient is not interested in surgical consultation at this time. ? After discussion?elected to set up referral to Misha/Cassandra pain management at [facility]. With hopes of injection at the L4-5 [...] or fail to improve. Obed Samson MD [facility] PROGRESS HNO ID: [id number] Author: Alena Bauer Service: ? Author Type: Manager Animal Type: Progress Notes Filed: 09/04/2018 11:13 AM [...] Negative for excessive bleeding, clots, bleeding disorders. Normal [facility] CNOVon 07-31-2018 CNOV Office Visit (AGPOB1 ) -------- POLINA GIRON ([id number]) 1990 F Date Time Provider Department 07/31/18 9:15 AM OBED SAMSON AGPOB1 During your visit today, we recorded the following information about you: Respiration Weight Height 18/minute 98 kg 1.676 m [employer] 07/31/2018 9:36 AM Signed REVIEW OF SYSTEMS: [...] by mouth three times daily as needed. dextroamphetamine-amphet amine (ADDERALL) 20 mg tablet Take 20 mg [...] a overweight female in NAD Head: is normocephalic/autraumati c Eyes: EOMI, sclera Clear Psych: Patient is [...] extension; ankle plantar flexion/dorsiflexion; knee flexion/extension; hip flexion/abduction/adduct ion. Lower extremity neuro exam: sensation to soft [...] (CODEINE) 06/01/2007 8 - GI Upset VICODIN (HYDROCODONE-ACETAMINOPH E*06/01/2007 8 - GI Upset Date Reviewed: 07/31/2018 Reviewed by: Obed Samson MD - Fully Assessed Reason for Visit: Follow Up [171] Cmt: back and leg Primary Visit Diagnosis:Chronic right-sided low back pain with right-sided sciatica [M54.41, G89.29] Order(s):MRI LUMBAR SPINE WO IVCON [[id number]] Order #: [id number] FUTURE diclofenac potassium (CATAFLAM) 50 mg tabletTake 1 tablet by mouth three times daily as needed.Disp: 50 tabletRfl: 1 Prescriptions as of 07/31/2018 Sig: CYCLOBENZAPRINE 10 MG TABLET Take 1 tablet by mouth three * DEXTROAMPHETAMINE-AMPHET AMINE* Take 20 mg by mouth twice shahid* [...] Status:Closed by OBED SAMSON MD on 07/31/18 [facility] PROGRESSon 07-31-2018 PROGRESS HNO ID: [id number] Author: Obed Samson MD Service: (none) Author [...] by mouth three times daily as needed. dextroamphetamine-amphet amine (ADDERALL) 20 mg tablet Take 20 mg [...] a overweight female in NAD Head: is normocephalic/autraumati c Eyes: EOMI, sclera Clear Psych: Patient is [...] extension; ankle plantar flexion/dorsiflexion; knee flexion/extension; hip flexion/abduction/adduct ion. Lower extremity neuro exam: sensation to soft [...] improvement. Return for MRIresults. Obed Samson MD [facility] PROGRESS HNO ID: [id number] Author: Written Service: (none) Author Type: Welfare Investigator Type: Progress Notes Filed: 07/31/2018 9:36 AM Note Text: REVIEW OF SYSTEMS: GENERAL: Well developed, well nourished. No acute distress PAIN: Pain 10 CARDIOVASCULAR: Negative for chest pain, leg swelling and palpations. MSK: Negative for joint pain, swelling, back pain, muscle pain. SKIN: Negative for lesions, rash, itching, metal sensitivity NEURO: Numbness/tingling of extremties ENDOCRINE: Negative for Diabetes Type 1 and Type 2 HEMATOLOGY: Negative for excessive bleeding, clots, bleeding disorders. Patient statrts p.t in one week. [facility] CNOVon 07-17-2018 CNOV Office Visit (AGPOB1 ) -------- POLINA GIRON ([id number]) 1990 F Date Time Provider Department 07/17/18 10:30 AM [facility] During your visit today, we recorded the following information about you: Respiration Weight Height 17/minute 98 kg 1.676 m [employer] 07/17/2018 1:37 PM Signed REVIEW OF SYSTEMS: GENERAL: Well developed, well nourished. No acute distress PAIN: Pain 8 CARDIOVASCULAR: Negative for chest pain, leg swelling [...] maybe 4 or 5 months ago @ [facility]. Patient has had low back pain [...] by mouth three times daily as needed. dextroamphetamine-amphet amine (ADDERALL) 20 mg tablet Take 20 mg [...] a overweight female in NAD Head: is normocephalic/autraumati c Eyes: EOMI, sclera Clear Psych: Patient is irritable, she is responsive, and oriented. Gait: walks in bent over posturee Lumbar Spine: appearance: apears to have dextroscoliosis lumbar spine, ROM 60-59-hpixrs to extend, TTP roshni lumbar spine, paraspinal [...] extension; ankle plantar flexion/dorsiflexion; knee flexion/extension; hip flexion/abduction/adduct ion. 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 As directed on packageDisp: 1 PackageRfl: 0 Prescriptions as of 07/17/2018 Sig: CYCLOBENZAPRINE 10 MG TABLET Take 1 tablet by mouth three * DEXTROAMPHETAMINE-AMPHET AMINE* Take 20 mg by mouth twice shahid* [...] SULFATE HFA 90 MCG/ACTUATION AEROSOL INHALER >> [employer] 07/17/2018 10:58 AM >> [employer] Jul 17, 2018 10:58 AM Not stated LAMOTRIGINE 25 MG TABLET >> [employer] 07/17/2018 10:58 AM >> [employer] Jul 17, 2018 10:58 AM Not stated BUPROPION XL 300 MG 24 HR TAB >> [employer] 07/17/2018 10:52 AM >> [employer] Jul 17, 2018 10:52 AM Not given CLONAZEPAM ORAL >> [employer] 07/17/2018 10:58 AM >> [employer] Jul 17, 2018 10:58 AM Not stated [...] Status:Closed by OBED SAMSON MD on 07/17/18 [facility] PROGRESSon 07-17-2018 PROGRESS HNO ID: [id number] Author: Obed Samson MD Service: (none) Author [...] maybe 4 or 5 months ago @ [facility]. Patient has had low back pain [...] by mouth three times daily as needed. dextroamphetamine-amphet amine (ADDERALL) 20 mg tablet Take 20 mg [...] a overweight female in NAD Head: is normocephalic/autraumati c Eyes: EOMI, sclera Clear Psych: Patient is irritable, she is responsive, and oriented. Gait: walks in bent over posturee Lumbar Spine: appearance: apears to have dextroscoliosis lumbar spine, ROM 35-84-nvvokk to extend, TTP roshni lumbar spine, paraspinal [...] extension; ankle plantar flexion/dorsiflexion; knee flexion/extension; hip flexion/abduction/adduct ion. ASSESSMENT: (M54.41, G89.29) Chronic right-sided low back [...] 4 weeks (around 08/14/2018). Obed Samson MD [facility] PROGRESS HNO ID: [id number] Author: Victoria Guerrero) Chew Service: (none) Author Type: Welfare Investigator Type: Progress Notes Filed: 07/17/2018 1:37 PM [...] up straight due to back pain. Normal [facility] Vital Signs Date Time Vital Sign Value Performing Clinician Facility 11-20-2024 09:29-0400 Body mass index (BMI) [Ratio] 39.54 kg/m2 Gonzalo Basutro MD Work Phone: [facility] 11-20-2024 09:29-0400 Body weight 111.13 kg Gonzalo Basurto MD Work Phone: [facility] 11-07-2024 14:00-0400 Body height 167.6 cm Megan Mason APRN - [employer] Work Phone: [facility] 11-07-2024 14:00-0400 Body mass index (BMI) [Ratio] 38.77 kg/m2 Megan Mason APRN - [employer] Work Phone: [facility] 11-07-2024 14:00-0400 Body weight 108.95 kg Megan Mason APRN - [employer] Work Phone: [facility] 11-07-2024 14:00-0400 Diastolic blood pressure 71 mm[Hg] Megan Mason APRN - [employer] Work Phone: [facility] 11-07-2024 14:00-0400 Heart rate 101 /min Megan Mason APRN - [employer] Work Phone: [facility] 11-07-2024 14:00-0400 Systolic blood pressure 106 mm[Hg] Megan Mason APRN [employer] Work Phone: [facility] 10-23-2024 14:55-0400 Heart rate 89 /min Nataliya Gomez MD Work Phone: [facility] 10-23-2024 14:55-0400 Respiratory rate 17 /min Nataliya Gomez MD Work Phone: [facility] 10-23-2024 14:55-0400 SaO2% (BldA) [Mass fraction] 99 % Nataliya Gomez MD Work Phone: [facility] 10-23-2024 12:58-0400 Body temperature 97.9 [degF] Nataliya Gomez MD Work Phone: [facility] 10-23-2024 12:58-0400 Diastolic blood pressure 88 mm[Hg] Nataliya Gomez MD Work Phone: [facility] 10-23-2024 12:58-0400 Systolic blood pressure 136 mm[Hg] Nataliya Gomez MD Work Phone: [facility] 10-23-2024 12:56-0400 Body height 167.64 cm Nataliya Gomez MD Work Phone: [facility] 10-23-2024 12:56-0400 Body mass index (BMI) [Ratio] 38.5 kg/m2 Nataliay Gomez MD Work Phone: [facility] 10-23-2024 12:56-0400 Body weight 108.4 kg Nataliya Gomez MD Work Phone: [facility] 10-16-2024 12:14-0400 Body height 167.6 cm Valeri Kwok MD Work Phone: [facility] 10-16-2024 12:14-0400 Body mass index (BMI) [Ratio] 40.19 kg/m2 Valeri Kwok MD Work Phone: [facility] 10-16-2024 12:14-0400 Body weight 112.95 kg Valeri Kwok MD Work Phone: [facility] 10-16-2024 12:14-0400 Diastolic blood pressure 84 mm[Hg] Valeri Kwok MD Work Phone: [facility] 10-16-2024 12:14-0400 Systolic blood pressure 126 mm[Hg] Valeri Kwok MD Work Phone: [facility] 08-15-2024 13:58-0400 Body height 167.6 cm Megan Colladolellan PATIENT ACCESS - [employer] Work Phone: [facility] 08-15-2024 13:58-0400 Body mass index (BMI) [Ratio] 40.48 kg/m2 Megan Colladolellan PATIENT ACCESS - [employer] Work Phone: [facility] 08-15-2024 13:58-0400 Body weight 113.76 kg Megan Colladolellan PATIENT ACCESS - [employer] Work Phone: [facility] 08-15-2024 13:58-0400 Diastolic blood pressure 80 mm[Hg] Megan Colladolellan PATIENT ACCESS - [employer] Work Phone: [facility] 08-15-2024 13:58-0400 Heart rate 97 /min Megan Colladolellan PATIENT ACCESS - [employer] Work Phone: [facility] 08-15-2024 13:58-0400 Systolic blood pressure 117 mm[Hg] Megan Mason PATIENT ACCESS - [employer] Work Phone: [facility] 05-23-2024 14:32-0500 Body height 167.6 cm Megan Colladolellan PATIENT ACCESS - [employer] Work Phone: [facility] 05-23-2024 14:32-0500 Body mass index (BMI) [Ratio] 39.45 kg/m2 Megan Colladolellan PATIENT ACCESS - [employer] Work Phone: [facility] 05-23-2024 14:32-0500 Body weight 110.86 kg Megan Marlon PATIENT ACCESS - [employer] Work Phone: [facility] 05-23-2024 14:32-0500 Diastolic blood pressure 69 mm[Hg] Megan Mason PATIENT ACCESS - [employer] [facility] Phone: [facility] [facility] 05-23-2024 14:32-0500 Heart rate 81 /min Megan Mason PATIENT ACCESS - TOUR ESCORT Work Phone: [facility] 05-23-2024 14:32-0500 Systolic blood pressure 106 mm[Hg] Megan Mason PATIENT ACCESS - TOUR ESCORT Work Phone: [facility] 02-28-2024 14:39-0400 Body height 167.6 cm Megan Mason PATIENT ACCESS - TOUR ESCORT Work Phone: [facility] 02-28-2024 14:39-0400 Body mass index (BMI) [Ratio] 40.42 kg/m2 Megan Mason PATIENT ACCESS - TOUR ESCORT Work Phone: [facility] 02-28-2024 14:39-0400 Body weight 113.58 kg Megan Mason PATIENT ACCESS - TOUR ESCORT Work Phone: [facility] 02-28-2024 14:39-0400 Diastolic blood pressure 89 mm[Hg] Megan Mason PATIENT ACCESS - TOUR ESCORT Work Phone: [facility] 02-28-2024 14:39-0400 Heart rate 79 /min Megan Mason PATIENT ACCESS - TOUR ESCORT Work Phone: [facility] 02-28-2024 14:39-0400 Systolic blood pressure 125 mm[Hg] Megan Mason PATIENT ACCESS - TOUR ESCORT Work Phone: [facility] 12-13-2023 12:13-0400 Body height 167.6 cm Valeri Kwok MD Work Phone: [facility] 12-13-2023 12:13-0400 Body mass index (BMI) [Ratio] 40.19 kg/m2 Valeri Kwok MD Work Phone: [facility] 12-13-2023 12:13-0400 Body weight 112.95 kg Valeri Kwok MD Work Phone: [facility] 12-13-2023 12:13-0400 Diastolic blood pressure 76 mm[Hg] Valeri Kwok MD Work Phone: [facility] 12-13-2023 12:13-0400 Systolic blood pressure 124 mm[Hg] Valeri Kwok MD Work Phone: [facility] 10-31-2023 12:55-0400 Body height 167.6 cm Megan Marlon PATIENT ACCESS - TOUR ESCORT Work Phone: [facility] 10-31-2023 12:55-0400 Body mass index (BMI) [Ratio] 41.19 kg/m2 Megan Marlon PATIENT ACCESS - TOUR ESCORT Work Phone: [facility] 10-31-2023 12:55-0400 Body weight 115.76 kg Megan Marlon PATIENT ACCESS - TOUR ESCORT Work Phone: [facility] 10-31-2023 12:55-0400 Diastolic blood pressure 82 mm[Hg] Megan Marlon PATIENT ACCESS - TOUR ESCORT Work Phone: [facility] 10-31-2023 12:55-0400 Heart rate 96 /min Megan Marlon PATIENT ACCESS - TOUR ESCORT Work Phone: [facility] 10-31-2023 12:55-0400 Systolic blood pressure 127 mm[Hg] Megan Marlon PATIENT ACCESS - TOUR ESCORT Work Phone: [facility] 06-21-2023 12:17-0500 Body mass index (BMI) [Ratio] 40.19 kg/m2 Megan Marlon PATIENT ACCESS - TOUR ESCORT Work Phone: [facility] 06-21-2023 12:17-0500 Body weight 112.95 kg Megan Marlon PATIENT ACCESS - TOUR ESCORT Work Phone: [facility] 06-21-2023 12:17-0500 Diastolic blood pressure 88 mm[Hg] Megan Mason PATIENT ACCESS - TOUR ESCORT Work Phone: [facility] 06-21-2023 12:17-0500 Heart rate 105 /min Megan Mason PATIENT ACCESS - TOUR ESCORT Work Phone: [facility] 06-21-2023 12:17-0500 Systolic blood pressure 129 mm[Hg] Megan Mason PATIENT ACCESS - TOUR ESCORT Work Phone: [facility] 05-11-2023 08:28-0500 Body mass index (BMI) [Ratio] 39.38 kg/m2 Megan Mason PATIENT ACCESS - TOUR ESCORT Work Phone: [facility] 05-11-2023 08:28-0500 Body weight 110.68 kg Megan Mason PATIENT ACCESS - TOUR ESCORT Work Phone: [facility] 05-11-2023 08:28-0500 Diastolic blood pressure 81 mm[Hg] Megan Mason PATIENT ACCESS - TOUR ESCORT Work Phone: [facility] 05-11-2023 08:28-0500 Heart rate 90 /min Megan Mason PATIENT ACCESS - TOUR ESCORT Work Phone: [facility] 05-11-2023 08:28-0500 Systolic blood pressure 117 mm[Hg] Megan Mason PATIENT ACCESS - TOUR ESCORT Work Phone: [facility] 04-11-2023 14:10-0500 Diastolic Blood Pressure Non-Invasive 89 1 NIDAL CHOUJAA DO [facility] 04-11-2023 14:10-0500 Heart rate 97 /min NIDAL CHOUJAA DO [facility] 04-11-2023 14:10-0500 Reason For Taking VItal Signs NIDAL CHOUJAA DO [facility] 04-11-2023 14:10-0500 Respiratory rate 18 /min NIDAL CHOUJAA DO [facility] 04-11-2023 14:10-0500 Systolic Blood Pressure Non-Invasive 138 1 NIDAL CHOUJAA DO [facility] 04-11-2023 12:33-0500 Heart rate 100 /min NIDAL CHOUJAA DO [facility] 04-11-2023 12:33-0500 Respiratory rate 18 /min NIDAL CHOUJAA DO [facility] 04-11-2023 12:03-0500 Body temperature 98.06 [degF] NIDAL CHOUJAA DO [facility] 04-11-2023 12:03-0500 Diastolic Blood Pressure Non-Invasive 87 1 NIDAL CHOUJAA DO [facility] 04-11-2023 12:03-0500 Heart rate 100 /min NIDAL CHOUJAA DO [facility] 04-11-2023 12:03-0500 Respiratory rate 18 /min NIDAL CHOUJAA DO [facility] 04-11-2023 12:03-0500 Systolic Blood Pressure Non-Invasive 131 1 NIDAL CHOUJAA DO [facility] 02-18-2023 11:38-[address] MONTANA JUSTICE MD [facility] 02-18-2023 11:38-0400 Body temperature 97.7 [degF] DR MONTANA JUSTICE MD [facility] 02-18-2023 11:38-0400 Diastolic Blood Pressure Non-Invasive [address] MONTANA JUSTICE MD [facility] 02-18-2023 11:38-0400 Heart rate 77 /min DR MONTANA JUSTICE MD [facility] 02-18-2023 11:38-0400 Respiratory rate 16 /min DR MONTANA JUSTICE MD [facility] 02-18-2023 11:38-0400 Systolic Blood Pressure Non-Invasive [address] MONTANA JUSTICE MD [facility] 12-18-2022 12:54-0400 Body temperature 98.06 [degF] HELGA PHELPS MD [facility] 12-18-2022 12:54-0400 Diastolic Blood Pressure Non-Invasive 75 1 HELGA PHELPS MD [facility] 12-18-2022 12:54-0400 Heart rate 94 /min HELGA PHELPS MD [facility] 12-18-2022 12:54-0400 Respiratory rate 18 /min HELGA PHELPS MD [facility] 12-18-2022 12:54-0400 Systolic Blood Pressure Non-Invasive 111 1 HELGA PHELPS MD [facility] 10-06-2022 10:18-0400 Body height 167.6 cm [facility] 10-06-2022 10:18-0400 Body mass index (BMI) [Ratio] 38.41 kg/m2 [facility] 10-06-2022 10:18-0400 Body weight 107.96 kg [facility] 10-06-2022 10:18-0400 Diastolic blood pressure 81 mm[Hg] [facility] 10-06-2022 10:18-0400 Heart rate 94 /min [facility] 10-06-2022 10:18-0400 Systolic blood pressure 122 mm[Hg] [facility] 10-06-2022 09:16-0400 Body mass index (BMI) [Ratio] 38.58 kg/m2 Perry Mckeon MD Work Phone: [facility] 10-06-2022 09:16-0400 Body weight 108.41 kg Perry Mckeon MD Work Phone: [facility] 10-06-2022 09:16-0400 Diastolic blood pressure 81 mm[Hg] Perry Mckeon MD Work Phone: [facility] 10-06-2022 09:16-0400 Heart rate 80 /min Perry Mckeon MD Work Phone: [facility] 10-06-2022 09:16-0400 Systolic blood pressure 122 mm[Hg] Perry Mckeon MD Work Phone: [facility] 04-14-2022 12:07-0500 Diastolic blood pressure 61 mm[Hg] AUBREY FROMMELT DO [facility] 04-14-2022 12:07-0500 Heart rate 110 /min AUBREY FROMMELT DO [facility] 04-14-2022 12:07-0500 Respiratory rate 18 /min AUBREY FROMMELT DO [facility] 04-14-2022 12:07-0500 Systolic blood pressure 121 mm[Hg] AUBREY FROMMELT DO [facility] 04-14-2022 10:30-0500 Heart rate 104 /min AUBREY FROMMELT DO [facility] 04-14-2022 10:30-0500 Respiratory rate 18 /min AUBREY FROMMELT DO [facility] 04-14-2022 10:29-0500 Heart rate 118 /min AUBREY FROMMELT DO [facility] 04-14-2022 10:29-0500 Respiratory rate 20 /min AUBREY CASTILLO DO [facility] 04-14-2022 09:43-0500 Body temperature 99.14 [degF] AUBREY CASTILLO DO [facility] 04-14-2022 09:43-0500 Body weight 98.2 kg AUBREY CASTILLO DO [facility] 04-14-2022 09:43-0500 Diastolic Blood Pressure Non-Invasive 98 1 AUBREY CASTILLO DO [facility] 04-14-2022 09:43-0500 Systolic Blood Pressure Non-Invasive 146 1 AUBREY CASTILLO DO [facility] 01-12-2022 21:38-0400 Body temperature 98.06 [degF] DR OBED COURTNEY MD [facility] 01-12-2022 21:38-0400 Diastolic blood pressure 69 mm[Hg] DR OBED COURTNEY MD [facility] 01-12-2022 21:38-0400 Heart rate 80 /min DR OBED COURTNEY MD [facility] 01-12-2022 21:38-0400 Respiratory rate 16 /min DR OBED COURTNEY MD [facility] 01-12-2022 21:38-0400 Systolic blood pressure 103 mm[Hg] DR OBED COURTNEY MD [facility] 12-30-2021 01:11-0400 Heart rate 98 /min MAGNUS OH MD [facility] 12-30-2021 01:11-0400 Respiratory rate 20 /min MAGNUS OH MD [facility] 12-30-2021 00:36-0400 Body temperature 98.42 [degF] MAGNUS OH MD [facility] 12-30-2021 00:36-0400 Diastolic blood pressure 79 mm[Hg] MAGNUS OH MD [facility] 12-30-2021 00:36-0400 Heart rate 100 /min MAGNUS OH MD [facility] 12-30-2021 00:36-0400 Respiratory rate 22 /min MAGNUS OH MD [facility] 12-30-2021 00:36-0400 Systolic blood pressure 131 mm[Hg] MAGNUS OH MD [facility] 10-12-2021 20:58-0400 Body height 167.6 cm Berto Carrera MD Work Phone: [facility] 10-12-2021 20:58-0400 Body temperature 98.6 [degF] Berto Carrera MD Work Phone: [facility] 10-12-2021 20:58-0400 Diastolic blood pressure 71 mm[Hg] Berto Carrera MD Work Phone: [facility] 10-12-2021 20:58-0400 Heart rate 92 /min Berto Carrera MD Work Phone: [facility] 10-12-2021 20:58-0400 Respiratory rate 12 /min Berto Carrera MD Work Phone: [facility] 10-12-2021 20:58-0400 SaO2% (BldA) [Mass fraction] 95 % Berto Carrera MD Work Phone: [facility] 10-12-2021 20:58-0400 Systolic blood pressure 116 mm[Hg] Berto Carrera MD Work Phone: [facility] 05-14-2020 15:13-0500 BMI (Body Mass Index) 33.9 kg/m2 Lacey Cisneroslars [facility] [place] Work Phone: 05-14-2020 15:13-0500 Body weight 95.26 kg Lacey Javed [facility] Work Phone: 05-14-2020 15:13-0500 BSA (Body Surface Area) 2.04 m2 Lacey Javed [facility] [place] Work Phone: 05-14-2020 15:13-0500 Height 167.64 cm Lacey Javed [facility] Work Phone: Encounters Encounter Date Encounter Type Care Provider Facility Start: 12-16-2024 ambulatory [facility] Start: 12-11-2024 End: 12-11-2024 Telephone encounter Megan Rockwell CNP Work Phone: [facility] Comment on above: Med Management (Quli medical technologist update ) Start: 12-11-2024 ambulatory [facility] Start: 11-28-2024 ambulatory [facility] Start: 11-26-2024 End: 11-26-2024 ambulatory Nataliya Gomez MD Work Phone: -Cat Scan [facility] Start: 11-26-2024 End: 11-26-2024 Patient encounter procedure Moses Friend DO -Cat Scan [facility] Work Phone: Start: 11-26-2024 End: 11-26-2024 ambulatory [facility] Facility:[facility] Start: 11-20-2024 End: 11-20-2024 Office outpatient new 45 minutes Gonzalo Basurto MD Work Phone: [facility] Comment on above: Oropharyngeal candid iasis (Primary Dx); Laryngopharyngeal reflux (LPR); Oral thrush; Throat discomfort; Throat clearing Start: 11-20-2024 End: 11-20-2024 ambulatory [facility] Start: 11-15-2024 End: 11-15-2024 ambulatory Nataliya Gomez MD Work Phone: [facility] Work Phone: Start: 11-15-2024 End: 11-15-2024 Patient encounter procedure Moses Montalvo DO -Ultrasound [facility] Work Phone: Start: 11-15-2024 End: 11-15-2024 ambulatory Nataliya Gomez Facility:[facility] Start: 11-08-2024 End: 11-08-2024 Patient encounter procedure Moses Montalvo DO -Laboratory Rosina [facility] Start: 11-08-2024 End: 11-08-2024 Refill Son Silva PharmD [facility] Neurology [facility] Start: 11-07-2024 End: 11-07-2024 Office outpatient visit 25 minutes Megan Mason APRN - TOUR ESCORT Work Phone: [facility] Neuroscience [facility] Comment on above: Intractable chronic migraine without aura and without status migrainosus (Primary Dx) Start: 11-07-2024 End: 11-08-2024 ambulatory Nataliya Gomez Facility:[facility] Start: 11-02-2024 End: 11-02-2024 ambulatory Nataliya Gomez MD Work Phone: [facility] Work Phone: Start: 11-02-2024 End: 11-02-[address] Nataliya Gomez MD -[facility] Work Phone: Start: 11-02-2024 End: 11-02-2024 ambulatory Nataliya Gomez Facility:[facility] Start: 10-24-2024 End: 10-24-2024 ambulatory Nataliya Gomez MD Work Phone: [facility] Work Phone: Start: 10-24-2024 End: 10-24-2024 Patient encounter procedure Moses Montalvo DO -Laboratory Work Phone: Start: 10-24-2024 End: 10-24-2024 Patient encounter procedure Moses Montalvo DO -[facility] Work Phone: Start: 10-24-2024 End: 10-24-2024 ambulatory [facility] Start: 10-24-2024 End: 10-24-2024 ambulatory [facility] Start: 10-23-2024 End: 10-23-2024 Emergency department patient visit Nataliya Gomez MD Work Phone: -Emergency Department Work Phone: Start: 10-21-2024 End: 10-21-2024 Orders Only Valeri Kwok MD Work Phone: [facility] PRE PROCEDURE Start: 10-16-2024 End: 10-16-2024 Telephone encounter Valeri Kwok MD Work Phone: [facility] Obstetrics and Gynecology [facility] Comment on above: Medication Problem Medication Problem ( Patient states the Slynd is not covered and wants to know if she get get another medication prescribed. She states she wants to continue not having periods and doesn't want it to cause weight gain. Please call and advise. Thank you.) Start: 10-16-2024 End: 10-16-2024 Office outpatient visit 15 minutes Valeri Kwok MD Work Phone: [facility] Obstetrics and Gynecology [facility] Comment on above: Weight gain (Primary Dx); Encounter for initial prescription of contraceptive pills Start: 10-16-2024 End: 10-16-2024 ambulatory [facility] Start: 10-03-2024 End: 10-03-[address] Ar Villarreal MD -Laboratory Specimen Work Phone: Start: 10-03-2024 End: 10-03-2024 ambulatory [facility] Start: 09-23-2024 End: 09-25-2024 Telephone encounter Valeri Kwok MD Work Phone: [facility] Obstetrics [facility] Comment on above: Medication Problem Start: 09-05-2024 End: 09-06-2024 Telephone encounter Megan Mason APRN - TOUR ESCORT Work Phone: [facility] Start: 09-04-2024 End: 09-04-2024 ambulatory Tiesha Valles RN [facility] Clinical Communication Start: 09-04-2024 End: 09-04-2024 Patient encounter procedure Tiesha Valles RN [facility] Clinical Communication Start: 08-22-2024 End: 08-22-2024 ambulatory NATALIYA GOMEZ [facility] Start: 08-19-2024 End: 08-19-2024 ambulatory Nataliya Gomez MD Work Phone: [facility] Work Phone: Start: 08-19-2024 End: 08-19-[address] Nataliya Gomez MD -Radiology, [place] Work Phone: Start: 08-19-2024 End: 08-19-2024 ambulatory Nataliya Gomez Facility:[facility] Start: 08-15-2024 End: 08-15-2024 Patient encounter procedure Megan Mason APRN - TOUR ESCORT Work Phone: [facility] Comment on above: Intractable chronic migraine without aura and without status migrainosus (Primary Dx) Start: 08-15-2024 End: 08-15-2024 ambulatory MEGAN MASON [facility] Start: 07-29-2024 End: 07-29-2024 Telephone encounter Megan Mason APRN - TOUR ESCORT Work Phone: [facility] Comment on [facility]: Advice Only Start: 07-06-2024 End: 07-09-2024 Refill Claudia Hall MD Work Phone: [facility] Obstetrics and Gynecology [facility] Comment on above: Encounter for survei llance of contraceptive pills Start: 07-02-2024 End: 07-04-2024 ambulatory Sudhakar Abrams RN [facility] Clinical Communication Start: 07-02-2024 End: 07-04-2024 Patient encounter procedure Sudhakar Abrams RN [facility] Clinical Communication Start: 07-02-2024 End: 07-04-2024 Telephone encounter Megan Mason PATIENT ACCESS - TOUR ESCORT Work Phone: [facility] Comment on above: Medication Question Med Management Start: 07-01-2024 End: 07-01-2024 Refill Megan Mason PATIENT ACCESS - TOUR ESCORT Work Phone: [facility] Clinical Communication Start: 06-06-2024 End: 06-06-2024 [facility] Start: 05-23-2024 End: 05-23-2024 Patient encounter procedure Megan Mason PATIENT ACCESS - TOUR ESCORT Work Phone: [facility] Comment on above: Intractable chronic migraine without aura and without status migrainosus (Primary Dx) Start: 05-23-2024 End: 05-23-2024 ambulatory MEGAN MASON [facility] Start: 04-15-2024 End: 04-15-2024 Refill Megan Mason PATIENT ACCESS - TOUR ESCORT Work Phone: [facility] Start: 04-15-2024 End: 04-15-2024 ambulatory [facility] Start: 04-05-2024 End: 04-05-2024 Refill Claudia Hall MD Work Phone: [facility] Obstetrics and Gynecology - [place] Comment on above: Encounter for survei llance of contraceptive pills Start: 03-14-2024 End: 03-14-2024 ambulatory [facility] Start: 02-28-2024 End: 02-28-2024 ambulatory MEGAN MASON [facility] Start: 02-28-2024 End: 02-28-2024 Patient encounter procedure Megan Mason PATIENT ACCESS - TOUR ESCORT Work Phone: [facility] Neuroscience [facility] Comment on above: Intractable chronic migraine without aura and without status migrainosus (Primary Dx) Start: 02-01-2024 End: 02-01-2024 Refill Megan Mason PATIENT ACCESS - TOUR ESCORT Work Phone: [facility] Clinical Communication Start: 01-30-2024 End: 01-31-2024 Telephone encounter Megan Mason PATIENT ACCESS - TOUR ESCORT Work Phone: [facility] Neuroscience Comment on above: Reschedule Start: 01-12-2024 ambulatory [facility] Start: 01-11-2024 End: 02-16-2024 Telephone encounter Clare Maurice [facility] Comment on above: Other (Botox Deliver y RX [facility]) Start: 01-04-2024 End: 01-05-2024 Refill Drea Preciado MD Work Phone: [facility] Comment on above: Encounter for survei llance of contraceptive pills Start: 01-01-2024 End: 01-01-2024 Telephone encounter Valeri Kwok MD Work Phone: [facility] Obstetrics & Gynecology Comment on above: Results Start: 12-21-2023 End: 12-21-2023 ambulatory [facility] Start: 12-13-2023 End: 12-13-2023 Patient encounter procedure Valeri Kwok MD Work Phone: [facility] Work Phone: Start: 12-13-2023 End: 12-13-2023 Periodic preventive med est patient 18-39 yrs Valeri Kwok MD Work Phone: [facility] Comment on above: Well woman exam with routine gynecological exam (Primary Dx); Dysuria; Cervical cancer screening; Vaginal itching; Stress incontinence of urine Start: 11-19-2023 Refill Drea Soto Work Phone: [facility] Comment on above: Encounter for survei llance of contraceptive pills Start: 10-31-2023 End: 10-31-2023 Patient encounter procedure Megan Mason PATIENT ACCESS - TOUR ESCORT Work Phone: [facility] Comment on above: Intractable chronic migraine without aura and without status migrainosus (Primary Dx) Start: 10-17-2023 ambulatory [facility] Start: 10-17-2023 Patient encounter procedure Princess Rios [facility] Start: 10-05-2023 Refill Megan salazar PATIENT ACCESS - TOUR ESCORT Work Phone: [facility] Clinical Communication Start: 09-11-2023 Refill Drea Soto Work Phone: [facility] Comment on above: Encounter for survei llance of contraceptive pills Start: 08-25-2023 Telephone encounter Megan Bergman PATIENT ACCESS - TOUR ESCORT Work Phone: [facility] Comment on above: Botulinum Toxin Inje ction Start: 08-17-2023 End: 08-17-2023 Office outpatient visit 15 minutes Megan Mason PATIENT ACCESS - TOUR ESCORT Work Phone: [facility] Comment on above: Intractable chronic migraine without aura and without status migrainosus (Primary Dx) Start: 07-27-2023 End: 07-27-2023 ambulatory [facility] Work Phone: Start: 07-27-2023 End: 07-27-2023 Patient encounter procedure [facility] [place] Work Phone: Start: 06-29-2023 Telephone encounter Megan Bergman PATIENT ACCESS - TOUR ESCORT Work Phone: [facility] Comment on above: Results Start: 06-21-2023 End: 06-21-2023 Patient encounter procedure Megan Mason PATIENT ACCESS - TOUR ESCORT Work Phone: [facility] Comment on above: Intractable chronic migraine without aura and without status migrainosus (Primary Dx) Start: 05-23-2023 End: 05-23-2023 Subsequent hospital visit by physician Megan Mason APRN - TOUR ESCORT Work Phone: [facility] Comment on above: Intractable chronic migraine without aura and without status migrainosus Start: 05-15-2023 Telephone encounter Megan Bergman PATIENT ACCESS - TOUR ESCORT Work Phone: [facility] Start: 05-12-2023 Refill Margret Whitt [facility] Neuroscience Start: 05-11-2023 End: 05-11-2023 Office outpatient visit 25 minutes Megan Mason PATIENT ACCESS - TOUR ESCORT Work Phone: [facility] Comment on above: Intractable chronic migraine without aura and without status migrainosus (Primary Dx) Start: 04-14-2023 End: 04-14-2023 ambulatory [facility] Work Phone: Start: 04-14-2023 End: 04-14-2023 Patient encounter procedure [facility], [facility] Work Phone: Start: 04-11-2023 End: 04-11-2023 Emergency department patient visit [facility] Facility:B Start: 04-11-2023 End: 04-11-2023 Emergency department [facility] Start: 03-16-2023 Refill Megan salazar PATIENT ACCESS - TOUR ESCORT Work Phone: [facility] Start: 02-18-2023 End: 02-18-2023 Emergency department patient visit DR MONTANA JUSTICE MD Facility:B Start: 02-18-2023 End: 02-18-2023 Emergency department patient visit DR MONTANA JUSTICE MD [facility] Start: 12-19-2022 Telephone encounter Megan Chu George PATIENT ACCESS - TOUR ESCORT Work Phone: [facility] Comment on above: Advice Only Start: 12-18-2022 End: 12-18-2022 Emergency department patient visit HELGA PHELPS MD Facility:B Start: 12-18-2022 End: 12-18-2022 Emergency department patient visit HELGA PHELPS MD [facility] Start: 12-15-2022 Telephone encounter Megan Chu George PATIENT ACCESS - TOUR ESCORT Work Phone: [facility] Comment on above: Discuss Medications Start: 10-06-2022 Telephone encounter Isabella BREAUX [facility] Clinical Communication Comment on above: pt returning call. O ffice called to change depo appt locatio (pt returning call. Office called to change depo appt location) Start: 10-06-2022 End: 10-06-2022 Patient encounter procedure [facility] [employer] Lab Schedule [facility] Comment on above: Encounter for survei llance of injectable contraceptive Start: 10-06-2022 End: 10-06-2022 Office outpatient new 45 minutes Perry Mckeon MD Work Phone: [facility] Comment on above: Intractable chronic migraine without aura and without status migrainosus (Primary Dx); Medication overuse headache Start: 04-14-2022 End: 04-14-2022 Emergency department patient visit AUBREY CASTILLO DO [facility] Start: 01-12-2022 End: 01-12-2022 Emergency department patient visit DR OBED COURTNEY MD [facility] Start: 12-30-2021 End: 12-30-2021 Emergency department patient visit MAGNUS [place] MD [facility] Start: 10-12-2021 End: 10-12-2021 Emergency department patient visit Berto Carrera MD Work Phone: [facility] ED Comment on above: 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) Start: 07-23-2021 End: 07-23-[address] BEBA HUMPHREYS DO [facility] Start: 03-29-2021 End: 03-29-[address] BEBA HUMPHREYS DO [facility] Start: 10-12-2018 Patient encounter procedure RAVIN COLLIER Facility:[facility] Start: 09-04-2018 End: 09-04-2018 Patient encounter procedure OBED SAMSON Facility:[facility] Start: 08-21-2018 Patient encounter procedure OBED SAMSON Facility:[facility] Start: 08-14-2018 Patient encounter procedure OBED SAMSON Facility:[facility] Start: 07-31-2018 End: 07-31-2018 Patient encounter procedure OBED SAMSON Facility:[facility] Start: 07-17-2018 End: 07-17-2018 Patient encounter procedure OBED SAMSON Facility:[facility] Start: 07-05-2018 Patient encounter procedure OBED SAMSON Facility:[facility] Procedures Date Procedure Procedure Detail Performing Clinician Start: 11-26-2024 Computed tomography of abdomen and pelvis with contrast Nataliya Gomez MD Work Phone: Start: 11-15-2024 Ultrasound elastography of liver Nataliya Gomez MD Work Phone: Start: 11-08-2024 Vitamin D, 25-hydrox y measurement Nataliya Gomez MD Work Phone: Comment on above: Vitamin D StatusDefi ciency: <20 ng/mL (50nmol/L)Insufficiency: 20-30 ng/mL (50-75 nmol/L)Sufficiency: 30-100 ng/mL (75-250 nmol/L)Toxicity: >100 ng/mL (>250 nmol/L) Start: 11-07-2024 Follow-up visit Follow-up MEGAN MASON Start: 11-02-2024 MRI of lumbar spine Diana Gomez MD Work Phone: Start: 10-24-2024 Albumin/Globulin ratio Nataliya Gomez MD Work Phone: Start: 10-24-2024 Antibody measurement Ch anna Gomez MD Work Phone: Comment on above: *Additional results available. Contact laboratory/see report*The atypical pANCA pattern has been observed in asignificant percentage of patients with ulcerative colitis,primary sclerosing cholangitis and autoimmune hepatitis. Start: 10-24-2024 Antibody to centrome re measurement Nataliya Gomez MD Work Phone: Comment on above: Test not performed Previous reported re sult: TNP AIEdited by: DENZEL on 10/30/24:0908 AMENDED REPORT 10/30/24 0908 ANTI-CENT B previously reported as: Test not performed Start: 10-24-2024 Antibody to extracta ble nuclear antigen measurement Nataliya Gomez MD Work Phone: Comment on above: Test not performed Previous reported re sult: TNP AIEdited by: DENZEL on 10/30/24:0908 AMENDED REPORT 10/30/24 0908 BARRAGAN Ab previously reported as: Test not performed Start: 10-24-2024 Antibody to KAYKAY-1 measurement Nataliya Gomez MD Work Phone: Comment on above: Test not performed Previous reported re sult: TNP AIEdited by: DENZEL on 10/30/24:0908 AMENDED REPORT 10/30/24 0908 ANTI-KAYKAY previously reported as: Test not performed Start: 10-24-2024 Antibody to lupus La protein measurement Nataliya Gomez MD Work Phone: Start: 10-24-2024 Antibody to SS-A measurement Nataliya Gomez MD Work Phone: Start: 10-24-2024 Autoantibody measurement Nataliya Gomez MD Work Phone: Comment on above: Test not performed Previous reported re sult: TNP AIEdited by: DENZEL on 10/30/24:0908 AMENDED REPORT 10/30/24 09 ANTICHROMATIN previously reported as: Test not performed Start: 10-24-2024 Endomysial antibody IgA level Nataliya Gomez MD Work Phone: Start: 10-24-2024 Hepatitis A virus an tibody, IgM type Nataliya Gomez MD Work Phone: Comment on above: A negative anti-HAV IgM result suggests no recent orcurrent HAV infection. Start: 10-24-2024 Hepatitis B core ant ibody measurement, IgM type Nataliya Gomez MD Work Phone: Start: 10-24-2024 Hepatitis C antibody measurement Nataliya Gomez MD Work Phone: Start: 10-24-2024 Immunoglobulin M measurement Nataliya Gomez MD Work Phone: Start: 10-24-2024 Measurement of fungal antibody Nataliya Gomez MD Work Phone: Comment on above: Negative: <45 Equivo robert: 45-50 Positive: >50 Start: 10-24-2024 CONCIERGE RECEPTIONIST antibody measurement Nataliya Gomez MD Work Phone: Comment on above: Test not performed Previous reported re sult: TNP AIEdited by: DENZEL on 10/30/24:0908 AMENDED REPORT 10/30/24 0908 CONCIERGE RECEPTIONIST Ab previously reported as: Test not performed Start: 10-24-2024 Scallop RAST Nataliya sneed MD Work Phone: Start: 10-24-2024 Serum inorganic phos phate measurement Nataliya Gomez MD Work Phone: Start: 10-24-2024 Sesame seed JORGE Gomez MD Work Phone: Comment on above: Performed at: [address] [id number] Director: Fortunato Santiago PhD, Phone: [phone] at: [facility] - [facility] [address] [id number] Director: Dia Marquez MD, Phone: [phone] Start: 10-24-2024 Fay Motta Work Phone: Start: 10-24-2024 Targeted analysis fo r gene mutation Nataliya Gomez MD Work Phone: Comment on above: Result: NEGATIVE for the JAK2 V617F mutation.Interpretation: The G to T nucleotide change encoding [id number] mutation was not detected. This result does not ruleout the presence of the JAK2 mutation at a level below thesensitivity of detection of this assay, or the presence ofother mutations within JAK2 not detected by this assay.This result does not rule out a diagnosis of polycythemiavera, essential thrombocythemia or idiopathicmyelofibrosis as the V617F mutation is not detected inall patients with these disorders. Start: 10-23-2024 Urnls dip stick/tabl et reagent auto microscopy Nataliya Gmoez MD Work Phone: Start: 10-23-2024 Bacteria identification test Nataliya Gomez MD Work Phone: Start: 10-23-2024 End: 10-23-2024 Polymerase chain reaction analysis Nataliya Gomez MD Work Phone: Start: 10-23-2024 Streptococcus pyogen es rRNA assay Nataliya Gomez MD Work Phone: Start: 10-23-2024 Trichomonas vaginalis detection Nataliya Gomez MD Work Phone: Start: 10-03-2024 Bacteria identification test Nataliya Gomez MD Work Phone: Start: 08-19-2024 X-ray of lumbar spin e, two or three views Nataliya Gomez MD Work Phone: Start: 12-13-2023 Culture bacterial qu anttative colony count urine Valeri Kwok MD Work [...] protein Debby Javed Start: 05-14-2020 CELIAC DISEASE SEROLOGY PANEL Lacey Javed Start: 05-14-2020 Comprehensive metabo [...] for Adults (1 - 1-dose 75+ series) [facility] Start: 2051 RSV Immunization aged 60 or older (1 - 1-dose 60+ series) RSV Immunization aged 60 or older (1 - 1-dose 60+ series) [facility] Start: 08-10-2041 Zoster Vaccines (1 of 2) Zoster Vaccines (1 of 2) [facility] Start: 12-12-2026 Screening for malignant neoplasm of cervix [facility] Start: 02-03-2025 Influenza vaccination [facility] Start: 01-22-2025 End: 01-22-2025 Patient encounter procedure 01/22/2025 12:00 PM EDT Office Visit [facility]necology - [address] [place] [phone] Valeri Kwok MD [address] [place] [address] [facility] Start: 12-24-2024 End: 12-24-2024 Telemedicine consultation with patient [facility] Start: 11-07-2024 End: 11-07-2024 Patient encounter procedure [facility] Start: 10-24-2024 Acute hepatitis 2000 panel - Serum [facility] Start: 10-24-2024 Catecholamines [Moles/volume] in Plasma [facility] Start: 10-24-2024 Celiac disease screen [facility] Start: 10-24-2024 Chromogranin A measurement [facility] Start: 10-24-2024 Erythropoietin (EPO) [Units/volume] in Serum or Plasma [facility] Start: 10-24-2024 Gastrin [Mass/volume] in Serum or Plasma [facility] Start: 10-24-2024 Immunoglobulin measurement [facility] Start: 10-24-2024 Serum immunofixation [facility] Start: 10-24-2024 [facility] Start: 10-23-2024 [facility] Start: 10-23-2024 Polymerase chain reaction analysis [facility] Start: 10-23-2024 Chlamydia/Neisseria (PCR) Chlamydia/Neisseria (PCR) [facility] Start: 10-23-2024 Throat culture Throat Culture [facility] Start: 10-16-2024 End: 10-16-2024 Patient encounter procedure 10/16/2024 12:00 PM EDT Office Visit [facility]ne[facility] [address] [place] [phone] Valeri Kwok MD [address] [place] [address] [facility] Obstetrics [facility] Gynecology [facility] Start: 08-22-2024 End: 08-22-2024 Patient encounter procedure 08/22/2024 11:30 AM EDT Office Visit [facility] [place] [address] [place] [phone] [facility] - [place] Start: 08-15-2024 End: 08-15-2024 Patient encounter procedure 08/15/2024 2:00 PM EDT Procedure Visit [facility] [address] [place] [phone] Megan Mason APRN - CNP [address] [place] [address] [facility] Start: 06-06-2024 End: 06-06-2024 Patient encounter procedure 06/06/2024 2:00 PM EST Office Visit [facility]necology - [place] [address] [place] [phone] [facility] Start: 06-05-2024 Medicare Advantage Annual Wellness Visit Medicare Advantage Annual Wellness Visit [facility] Start: 05-22-2024 End: 05-22-2024 Patient encounter procedure 05/22/2024 1:30 PM EST Procedure Visit [facility] [address] [place] [address] Megan Mason APRN - TOUR ESCORT [address] [place] [address] [facility] Start: 03-14-2024 End: 03-14-2024 Patient encounter procedure [facility] Start: 02-28-2024 End: 02-28-2024 Patient encounter procedure [facility] Start: 02-04-2024 COVID-19 Vaccine () COVID-19 Vaccine () [facility] Start: 02-04-2024 COVID-19 Vaccine ( season) COVID-19 Vaccine ( season) [facility] Start: 02-04-2024 Influenza vaccination [facility] Start: 01-25-2024 End: 01-25-2024 Patient encounter procedure 01/25/2024 1:00 PM EDT Procedure Visit [facility] [address] [facility] [address] [place] [address] Megan Mason APRN - TOUR ESCORT [address] [place] [address] [facility] Start: 01-23-2024 End: 01-23-2024 Patient encounter procedure 01/23/2024 1:00 PM EDT Procedure Visit [facility] [address] [facility] [address] [place] [phone] Megan Mason APRN - TOUR ESCORT [address] [place] [address] [facility] Start: 01-16-2024 End: 01-16-2024 ambulatory 01/16/2024 2:15 PM EDT Evaluation [facility] Therapy at [address] [place] [phone] Valeri Kwok MD [address] [place] [address] Shelly Mcguire, PT [facility] Therapy at [facility] Start: 12-21-2023 End: 12-21-2023 Patient encounter procedure 12/21/2023 2:00 PM EDT Office Visit [address] [place] [phone] [facility] Start: 12-06-2023 End: 12-06-2023 Patient encounter procedure 12/06/2023 1:00 PM EDT Office Visit [address] [place] [phone] [facility] Start: 11-22-2023 End: 11-22-2023 Patient encounter procedure 11/22/2023 1:00 PM EDT Office Visit [facility] [address] [place] [phone] Valeri Kwok MD [address] [place] [address] [facility] Start: 10-31-2023 End: 10-31-2023 Patient encounter procedure 10/31/2023 1:00 PM EDT Procedure Visit [facility] [address] [facility] [address] [place] [phone] Megan Mason APRN - TOUR ESCORT [address] [facility] [address] [place] [address] [facility] Start: 10-24-2023 End: 10-24-2023 Patient encounter procedure 10/24/2023 8:30 AM EDT Procedure Visit [facility] [address] [facility] [address] [place] [phone] Megan Mason APRN - TOUR ESCORT [address] [facility] [address] [place] [address] [facility] Start: 09-20-2023 End: 09-20-2023 Patient encounter procedure 09/20/2023 1:00 PM EDT Office Visit [facility] [address] [place] [phone] [facility] Start: 09-14-2023 End: 09-14-2023 Patient encounter procedure 09/14/2023 2:00 PM EDT Procedure Visit [facility] [address] [facility] [address] [place] [phone] Megan Mason APRN - CNP [address] [place] [address] [facility] Start: 09-13-2023 End: 09-13-2023 Patient encounter procedure 09/13/2023 1:00 PM EDT Office Visit [facility] [address] [place] [phone] [facility] Start: 08-08-2023 End: 08-08-2023 Patient encounter procedure 08/08/2023 2:00 PM EST Office Visit [facility] [address] [facility] [address] [place] [phone] Megan Mason APRN - TOUR ESCORT [address] [facility] [address] [place] [address] [facility] Start: 06-27-2023 End: 06-27-2023 Patient encounter procedure 06/27/2023 1:00 PM EST Office Visit [facility] [address] [place] [phone] [facility] Start: 06-21-2023 End: 06-21-2023 Patient encounter procedure 06/21/2023 12:30 PM EST Procedure Visit [facility] [address] [facility] [address] [place] [phone] Megan Mason APRN - TOUR ESCORT [address] [place] [address] [facility] Start: 06-05-2023 Medicare Advantage Annual Wellness Visit Medicare Advantage Annual Wellness Visit [facility] Start: 05-24-2023 End: 05-24-2023 Patient encounter procedure 05/24/2023 2:30 PM EST Procedure Visit [facility] [address] [place] [phone] Megan Mason APRN - CNP [address] [place] [address] [facility] Start: 05-23-2023 End: 05-23-2023 Patient encounter procedure 05/23/2023 2:30 PM EST Appointment [facility] MRI [address] [place] [phone] Megan Mason APRN - CNP [address] [place] [address] [facility] MRI Start: 05-11-2023 End: 05-11-2024 MR Brain WO and W contrast IV MR brain w and wo contrast Imaging Routine Intractable chronic migraine without aura and without status migrainosus Expected: 05/11/2023, Expires: 05/11/2024 [facility] Work Phone: Comment on above: Expected: 05/11/2023, Expires: Start: 04-11-2023 End: 04-11-2023 Patient encounter procedure 04/11/2023 11:00 AM EST Office Visit [facility] [address] [place] [phone] [facility] Start: 02-15-2023 End: 02-15-2023 Patient encounter procedure 02/15/2023 10:30 AM EDT Office Visit [facility] [address] [place] [phone] Megan Mason APRN - CNP [address] [place] [address] [facility] Start: 02-03-2023 COVID-19 Vaccine ( season) COVID-19 Vaccine ( season) [facility] Start: 02-03-2023 Influenza vaccination [facility] Start: 12-22-2022 End: 12-22-2022 Patient encounter procedure [facility] Start: 11-11-2022 End: 11-11-2022 Patient encounter procedure 11/11/2022 Office Visit Obstetrics and Gynecology Claudia Hall MD [address] [place], [place] [phone] [facility] Start: 11-11-2022 End: 11-11-2022 Patient encounter procedure 11/11/2022 Office Visit Neurology Megan Mason, ANTWAN - TOUR ESCORT [address] [facility] [address] [place], [place] [phone] [facility] Start: 02-03-2022 Influenza vaccination Flu vaccine (Season Ended) [facility] Start: 12-29-2021 End: 12-29-2021 Patient encounter procedure 12/29/2021 Office Visit Obstetrics and Gynecology Valeri Kwok MD [address] [place], [place] [phone] [facility] Start: 08-10-2021 Screening for malignant neoplasm of cervix [facility] Start: 09-11-2017 DTaP/Tdap/Td vaccine (5 - Td or Tdap) DTaP/Tdap/Td vaccine (5 - Td or Tdap) [facility] Start: 09-11-2017 DTaP/Tdap/Td Vaccines (5 - Td or Tdap) DTaP/Tdap/Td Vaccines (5 - Td or Tdap) [facility] Start: 09-11-2017 DTaP/Tdap/Td Vaccines (8 - Td or Tdap) DTaP/Tdap/Td Vaccines (8 - Td or Tdap) [facility] Start: 09-11-2017 DTaP/Tdap/Td Vaccines (9 - Td or Tdap) DTaP/Tdap/Td Vaccines (9 - Td or Tdap) [facility] Start: 05-18-2017 Pneumococcal 0-64 years Vaccine (2 - PCV) Pneumococcal 0-64 years Vaccine (2 - PCV) [facility] Start: 05-18-2017 Pneumococcal Vaccine: Pediatrics (0 to 5 Years) and At-Risk Patients (6 to 49 Years) (2 of 2 - PCV) Pneumococcal Vaccine: Pediatrics (0 to 5 Years) and At-Risk Patients (6 to 49 Years) (2 of 2 - PCV) [facility] Start: 05-18-2017 Pneumococcal Vaccine: Pediatrics (0 to 5 Years) and At-Risk Patients (6 to 64 Years) (2 - PCV) Pneumococcal Vaccine: Pediatrics (0 to 5 Years) and At-Risk Patients (6 to 64 Years) (2 - PCV) [facility] Start: 05-18-2017 Pneumococcal Vaccine: Pediatrics (0 to 5 Years) and At-Risk Patients (6 to 64 Years) (2 of 2 - PCV) Pneumococcal Vaccine: Pediatrics (0 to 5 Years) and At-Risk Patients (6 to 64 Years) (2 of 2 - PCV) [facility] Start: 05-18-2017 Pneumococcal Vaccine: Pediatrics and At-Risk Adult Patients (2 of 2 - PCV) Pneumococcal Vaccine: Pediatrics and At-Risk Adult Patients (2 of 2 - PCV) [facility] Start: 08-10-2012 Screening for malignant neoplasm of cervix [facility] Start: 09-02-2010 Hepatitis B vaccine (2 of 3 - 3-dose primary series) Hepatitis B vaccine (2 of 3 - 3-dose primary series) [facility] Start: 09-02-2010 Hepatitis B Vaccines (2 of 3 - 3-dose series) Hepatitis B Vaccines (2 of 3 - 3-dose series) [facility] Start: 08-10-2009 Diabetes mellitus screening Diabetes Screening [facility] Start: 08-10-2009 Hepatitis C screening [facility] Start: 05-16-2008 Varicella vaccination [facility] Start: 08-10-2006 HIV screening HIV screen [facility] Start: 2003 Depression Monitoring Depression Monitoring [facility] Start: 2003 Depression Screen Depression Screen [facility] Start: 2003 Depresssion Monitoring Depresssion Monitoring [facility] Start: 08-10-1996 COVID-19 Vaccine (#1) COVID-19 Vaccine (#1) [facility] Start: 08-10-1996 COVID-19 Vaccine (1) COVID-19 Vaccine (1) [facility] Start: 08-10-1992 Varicella vaccine (1 of 2 - 2-dose childhood series) Varicella vaccine (1 of 2 - 2-dose childhood series) [facility] Start: 02-11-1992 COVID-19 Vaccine (#1) COVID-19 Vaccine (#1) [facility] Start: 1991 HIV screening HIV Screening [facility] Start: 1991 Lipid panel Lipid Panel [facility] Start: 1991 Medicare Advantage Annual Wellness Visit (AWV) Medicare Advantage Annual Wellness Visit (AWV) [facility] Start: 1991 Yearly Adult Physical Yearly Adult Physical [facility] Albumin [Moles/volum e] in Serum or Plasma [facility] Albumin/Globulin ratio [facility] Antibody to lupus La protein measurement [facility] Antibody to SS-A measurement [facility] Bacteria identified in Throat by Culture [facility] Chitobioside IgA Ab [Units/volume] in Serum or Plasma by Immunoassay [facility] Clam IgE Ab [Units/v olume] in Serum [facility] Codfish IgE Ab [Units/volume] in Serum [facility] [place] IgE Ab [Units/v olume] in Serum [facility] Cow milk IgE Ab [Units/volume] in Serum [facility] Cytology Cervical or vaginal smear or scraping study Pap Smear Pathology and Cytology Routine Well woman exam with routine gynecological exam Cervical cancer screening 12/13/2023 2:23 PM EDT [facility] Work Phone: DNA double strand Ab [Units/volume] in Serum [facility] DOPamine [Mass/volum e] in Serum or Plasma [facility] Egg white RAST [facility] Electrophoresis: [id number] [facility] Electrophoresis: adarsh ma globulin [facility] EPINEPHrine [Mass/vo lume] in Plasma [facility] Globulin measurement [facility] Hepatitis A virus Ig M Ab [Presence] in Serum [facility] Hepatitis B core ant ibody measurement, IgM type [facility] Hepatitis B surface antigen measurement [facility] Hepatitis C antibody measurement [facility] IgA [Mass/volume] in Serum or Plasma [facility] IgE [Units/volume] i n Serum or Plasma [facility] IgG [Mass/volume] in Serum or Plasma [facility] IgM [Mass/volume] in Serum or Plasma [facility] JAK2 gene p.[id number] e [Presence] in Blood or Tissue by Molecular genetics method [facility] Laboratory data interpretation [facility] Laminaribioside IgG Ab [Units/volume] in Serum or Plasma by Immunoassay [facility] Liver stiffness by US.transient elastography [facility] Mannobioside IgG Ab [Units/volume] in Serum or Plasma by Immunoassay [facility] Measurement of funga l antibody [facility] End: 05-23-2023 [facility] Brain [facility] Comment on above: Once for 1 Occurrences starting 05/23/20 23 until 05/23/2023 Neutrophil cytoplasm ic Ab.classic [Units/volume] in Serum [facility] Neutrophil cytoplasm ic Ab.perinuclear.atypical [Titer] in Serum by Immunofluorescence [facility] OUTSIDE PROCEDURE SCAN OUTSIDE P ROCEDURE SCAN Procedures Ordered: 05/22/2023 [employer] Comment on above: Ordered: 05/22/2023 P-ANCA measurement [facility] Patient Education Preventing Vag initis ED Pharyngitis, Report Pending [facility] Work Phone: Patient referral [facility] Work Phone: Peanut IgE Ab [Units/volume] in Serum [facility] Plasma norepinephrin e measurement [facility] Protein electrophore sis panel - Serum or Plasma [facility] Radionuclide gastric emptying study [facility] Radionuclide study o f abdomen [facility] Scallop [facility] Sesame seed [facility] Shrimp IgE Ab [Units/volume] in Serum [facility] Soybean IgE Ab [Units/volume] in Serum [facility] Tissue transglutamin ase IgA Ab [Units/volume] in Serum [facility] [place] [facility] Wheat IgE Ab [Units/ volume] in Serum [facility] Immunizations Immunization Date Immunization Notes Care Provider Fa sia 05-18-2016 pneumococcal polysaccharide vaccine, [address] BEBA HUMPHREYS DO [facility] 05-18-2016 influenza virus vacc ine, unspecified formulation Isabella De Santiago [facility] 06-05-2011 tetanus and diphther ia toxoids, adsorbed, preservative free, for adult use (5 Lf of tetanus toxoid and 2 Lf of diphtheria toxoid) DR BEBA HUMPHREYS DO [facility] 08-05-2010 hepatitis B vaccine, unspecified formulation DR BEBA HUMPHREYS DO [facility] 04-18-[address] BEBA HUMPHREYS DO [facility] 12-13-[address] BEBA HUMPHREYS DO [facility] 09-12-[address] BEBA HUMPHREYS DO [facility] 09-12-2007 meningococcal polysaccharide (groups A, C, Y and W-135) diphtheria toxoid conjugate vaccine (MCV4P) DR BEBA HUMPHREYS DO [facility] 09-12-2007 tetanus and diphther ia toxoids, adsorbed, preservative free, for adult use (5 Lf of tetanus toxoid and 2 Lf of diphtheria toxoid) DR BEBA HUMPHREYS DO [facility] 02-20-2004 diphtheria, tetanus toxoids and acellular pertussis vaccine DR BEBA HUMPHREYS DO [facility] 02-20-2004 measles/mumps/rubell a virus vaccine DR BEBA HUMPHREYS DO [facility] 02-20-[address], inactivated [address] BEBA HUMPHREYS DO [facility] 05-14-1993 diphtheria, tetanus toxoids and acellular pertussis vaccine DR BEBA HUMPHREYS DO [facility] 05-14-1993 diphtheria, tetanus toxoids and acellular pertussis vaccine, unspecified formulation DR BEBA HUMPHREYS DO [facility] 05-14-1993 measles/mumps/rubell a virus vaccine DR BEBA HUMPHREYS DO [facility] 05-14-1993 poliovirus vaccine, inactivated DR BEBA HUMPHREYS DO [facility] 09-28-1992 diphtheria, tetanus toxoids and acellular pertussis vaccine DR BEBA HUMPHREYS DO [facility] 06-25-1992 diphtheria, tetanus toxoids and acellular pertussis vaccine DR BEBA HUMPHREYS DO [facility] 06-25-1992 haemophilus influenz ae type b vaccine, PRP-T conjugate DR BEBA HUMPHREYS DO [facility] 06-05-[address], inactivated [address] BEBA HUMPHREYS DO [facility] 1991 diphtheria, tetanus toxoids and acellular pertussis vaccine DR BEBA HUMPHREYS DO [facility] [address], [address] BEBA HUMPHREYS DO [facility] Payers Date Payer Category Payer Medicaid [facility] [id number] 2023 Self-pay [id number] 2022 Medicaid [id number] 2022 Medicaid [id number] 2021 Medicare ANTHEM MEDICARE ADVANTAGE [facility] MEDICARE ADVANTAGE [id number] 2021-Present [address] [place] [address] Medicare HMO [id number] 2021 Medicare O [facility] MEDICARE ADVANTAGE [id number] 2021 Medicare [id number] .[id number] 2021 Dual Eligibility Medicare/Medicaid [facility] SECONDARY [id number] 2021 Unknown [id number] 1990 Unknown [id number] 2.840.1.997750.3.579.2 .278 1991 Unknown [id number] 2.840.1.022687.3.579.2 .278 1991 Unknown [id number] 2.840.1.205586.3.579.2 .278 1991 Unknown [id number] 2.840.1.525399.3.579.2 .278 1991 Unknown [id number] 2.840.1.995892.3.579.2 .278 1991 Unknown [id number] 2.840.1.350623.3.579.2 .278 1991 Unknown [id number] 2.16840.1.458639.3.579.2 .278 1991 Unknown [id number] 2.840.1.348578.3.579.2 .627 1991 Unknown [id number] 2.840.1.718643.3.579.2 .627 1991 Unknown [id number] 2.840.1.984634.3.579.2 .627 1991 Unknown [id number] 2.840.1.077572.3.579.2 .1244 Medicaid MEDICAID [id number] Medicare [id number] Unknown [id number] Unknown [id number] 07.21.830.1.811452.3.579.2 .462 Unknown [id number] .0.1.753535.3.579.2 .462 Unknown [id number] .840.1.373111.3.579.2 .462 Unknown [id number] .0.1.029700.3.579.2 .462 Unknown [id number] 840.1.316121.3.579.2 .462 Unknown [id number] 07.21.830.1.477874.3.579.2 .462 Unknown [id number] .840.1.282349.3.579.2 .462 Unknown [id number] .840.1.148283.3.579.2 .462 Unknown [id number] .840.1.926134.3.579.2 .462 Unknown [id number] .840.1.651521.3.579.2 .462 Unknown [id number] .840.1.498507.3.579.2 .462 Unknown [id number] 2.16.840.1.051456.3.579.2 .462 Unknown [id number] 2.16.840.1.039772.3.579.2 .462 Unknown [id number] 2.16.840.1.612812.3.579.2 .462 Unknown [id number] 2.16.840.1.730384.3.579.2 .462 Social History Date Type Detail Facility Start: 08-14-2018 Heavy tobacco smoker (finding) [facility] Start: 1990 Sex Assigned At Female A [facility] Start: 08-22-2011 End: 11-07-2024 Tobacco smoking status DEIS Smokes tobacco daily [employer] Work Phone: Start: 09-22-2018 End: 11-07-2024 Cigarettes smoked current (pack per day) - Reported 0.5 [employer] Work Phone: Start: 09-22-2018 End: 11-07-2024 Tobacco use and exposure Smokeless tobacco non-user [employer] Work Phone: Start: 10-12-2021 End: 11-07-2024 Alcohol intake Lifetime non-drinker (finding) [employer] Work Phone: Start: 09-29-2021 History SDOH Alcohol Frequency 1 [employer] Work Phone: Start: 09-29-2021 History SDOH Social Connections Phone 3 [employer] Work Phone: Start: 09-29-2021 History SDOH Social Connections Membership 2 [employer] Work Phone: Start: 09-29-2021 History SDOH Social Connections Living 7 [employer] Work Phone: Start: 10-02-2021 End: 01-24-2023 Exposure to SARS-CoV-2 (event) Not sure [employer] Work Phone: Start: 08-22-2011 History of tobacco use Cigarette Smoker [facility] Start: 12-15-2022 End: 11-07-2024 Tobacco use panel [facility] Start: 03-24-2022 Sexual orientation Heterosexual (syed rodriguez) [facility] Start: 05-22-2020 Tobacco smoking status NHIS Unknown if ever smoked [facility] Start: 07-16-2019 Cigarettes [facility] Start: 01-03-2022 End: 08-29-2024 Sex Female (finding) [facility] Start: 1990 Sex assigned at Not on file [facility] Work Phone: NEGATED: Highlighted row - - -[facility] Work Phone: NEGATED: Highlighted row Not [facility] Functional Status Date Assessment Result Facility 04-11-2023 Functional Status Standard Safet y ID band on, Call device within reach, Bed in low position, Wheels locked, Bedside Cart Locked, Safety level maintained [facility] 04-11-2023 Functional Status [facility] 02-18-2023 Functional Status Independent [facility] 02-18-2023 Functional Status ID band on [facility] 12-18-2022 Functional Status Independent [facility] 12-18-2022 Functional Status Awake [facility] 04-14-2022 Functional Status Up ad dorita [facility] 12-30-2021 Functional Status ID band on, Call device within reach, Bed in low position, Wheels locked, Visitor at bedside [facility] NEGATED: Highlighted row Functional performance Functional status health issues are not documented Disease [facility] Work Phone: Mental Status Date Assessment Result Facility 04-11-2023 Mental Status Oriented x 4 [facility] 02-18-2023 Mental Status Orientation Orie nted x 4 [facility] 02-18-2023 Mental Status [facility] 12-18-2022 Mental Status Orientation Orie nted x 4 [facility] 04-14-2022 Mental Status Orientation Orie nted x 4 [facility] 01-12-2022 Mental Status Oriented x 4 [facility] 12-30-2021 Mental Status Oriented x 4 [facility] NEGATED: Highlighted row Cognitive function [Interpretation] Cognitive status health issues are not documented Disease -[facility] Work Phone: Clinical Notes 07-30-2020 to 12-11-2024 Telephone Encounter - ANTWAN Marsh CNP - 12/11/2024 9:42 AM EDTTelephone Encounter - ANTWAN Marsh CNP - 12/11/2024 9:42 AM EDTGonzalo Basurto MD - 11/20/2024 9:30 AM EDT Note Date & Type Note Facility 12-11-2024 Telephone encounter Note Noted [facility] 12-11-2024 Miscellaneous Notes Noted Name of caller: Polina Contact phone number: [phone] Relationship to Patient: patient Provider: ANTWAN Marsh CNP Practice: [facility] [place] Chief Complaint/Reason for Call: Polina states she would like to inform that Qulipta has helped with her headaches tremendously and has not had a headache since August 28. Please be advised. Best time of day caller can be reached: Any Patient advised that office/PCP has 24-48 business hours to return their call: Yes documented in this encounter [facility] 12-11-2024 Telephone encounter Note Name of caller: Polina Contact phone number: [phone] Relationship to Patient: patient Provider: ANTWAN Marsh CNP Practice: [facility] [place] Chief Complaint/Reason for Call: Polina states she would like to inform that Qulipta has helped with her headaches tremendously and has not had a headache since August 28. Please be advised. Best time of day caller can be reached: Any Patient advised that office/PCP has 24-48 business hours to return their call: Yes [facility] 11-27-2024 Radiology Diagnostic study note [facility] Imaging Services [address] [place] [address] [id number] Abdomen/Pelvis WITH Contrast MR#: [id number] Acct: [id number] Name: POLINA GIRON Rep #: [id number] : 1990 F 34 From: Corey Vitale MD PCP: Dr. Nataliya Gomez MD Status: REG CL I Study:Abdomen/Pelvis WITH Contrast Date of Ex am: 11/26/24 Exam# [id number] Ordering Dr: Miriam Montalvo DO PROCEDURE: ABDOMEN/PELVIS WITH CONTRAST 11/26/2024 REASON FOR EXAM: ABDOMINAL PAIN 2 year history of abdominal pain. History of IBS. TECHNIQUE: ABDOMEN/PELVIS WITH CONTRAST Coronal and Sagittal reconstruction series were provided. CONTRAST: Isovue-300 VOLUME: 100 mL One or more dose reduction techniques were used (e.g., Automated exposure control, adjustment of the mA and/or kV according to patient size, use of iterative reconstruction technique. RADIATION DOSE SUMMARY: CTDlvol: 12.5 mGy DLP: 1242.65 mGycm COMPARISON: None FINDINGS: Lung bases: Clear. Liver: Fatty infiltration of the liver. Gallbladder: Unremarkable Spleen: Normal size. Pancreas: Normal size without evidence of mass surrounding inflammation or ductal dilation. Adrenals: Unremarkable Kidneys: Normal renal sizes. No hydronephrosis. Bladder: Unremarkable Reproductive Organs: Normal uterine size and contour. Ovaries are unremarkable. Bowel: Scattered sigmoid diverticula. Appendix: Unremarkable Lymph nodes: Unremarkable Vasculature: The abdominal aorta and IVC are normal. Peritoneum / Retroperitoneum: Unremarkable Bones: Disc space narrowing and spondylosis at the L3-L4 level. CT/Abdomen/Pelvis WITH Contrast IMPRESSION: Fatty infiltration of the liver. Reading Location: [id number] CC: Dr. Nataliya Gomez MD; Moses Friend, DO ~ Timber Appraiser: Signed [facility] 11-20-2024 History of Present illness Narrative HPI Polina Giron is a 34 y.o. female presenting for initial evaluation of oral/throat discomfort. Reports her symptoms started 7 weeks ago, endorses occasional irritation/discomfort along her oropharyngeal region. Had multiple throat cultures obtained her first culture revealed haemophilus influenza growth, she was treated with Augmentin. Subsequent cultures did not reveal growth. For the past 2 weeks the patient endorses white coloration along her dorsal tongue. Also endorses throat clearing and globus sensation. Denies dysphagia, odynophagia, neck pain, neck lumps or bumps, fevers, chills, night sweats, or bleeding/hemoptysis, otalgia, weight loss. Medical History[1] Surgical History[2] Medications Ordered Prior to Encounter[3] RX Allergies[4] Review of Systems A detailed 12 point ROS was performed and is negative except as noted in the intake form, HPI and/or Past Medical History Physical Exam CONSTITUTIONAL: Well developed, well nourished. VOICE: Normal voice quality RESPIRATION: Breathing comfortably, no stridor. CV: No clubbing/cyanosis/edema in hands. EYES: EOM Intact, sclera normal. NEURO: Alert and oriented times 3, Cranial nerves V,VII intact and symmetric bilaterally. HEAD AND FACE: Symmetric facial features, no masses or lesions, sinuses nontender to palpation. SALIVARY GLANDS: Parotid and submandibular glands normal bilaterally. EARS: Normal external ears, external auditory canals, and TMs to otoscopy NOSE: External nose midline, anterior rhinoscopy is normal with limited visualization to the anterior aspect of the interior turbinates. No lesions noted. + ORAL CAVITY/OROPHARYNX/LIPS: Normal mucous membranes, normal floor of mouth/tongue/OP, no masses or lesions are noted. Thrush noted along the dorsal tongue PHARYNGEAL CASTILLO AND NASOPHARYNX: No masses noted. Mucosa appears clean and moist NECK/LYMPH: No LAD, no thyroid masses. Trachea palpably midline SKIN: Neck skin is without injury PSYCH: Alert and oriented with appropriate mood and affect PROCEDURE NOTE: FLEXIBLE NASOLARYNGOSCOPY The risks, benefits, and alternatives were explained. The patient wished to proceed and provided verbal consent. INDICATIONS: To visualize anatomy in specific detail; evaluation of symptomatic disorder involving the voice, swallowing, or upper aerodigestive tract, including KATIE. DESCRIPTION OF PROCEDURE: After adequate afrin and lidocaine spray, I advanced the endoscope into the nasal cavity. The nasal cavity, nasopharynx, tongue base, vallecula, posterior/lateral pharyngeal castillo, pyriform, epiglottis, post cricoid area, and larynx were within normal limits. The following specific findings should be noted: No lesions/masses No evidence of thrush along the base of tongue or larynx. Mobile TVCs bilaterally, complete glottic closure Postcricoid edema No pooling of secretions The patient tolerated the procedure without difficulty. Assessment Oral thrush Throat discomfort Laryngopharyngeal reflux Plan 34-year-old female presenting for evaluation of throat discomfort. Exam notable for thrush along her dorsal tongue and diffuse papillitis. CHIEF RISK OFFICER showing evidence of LPR, no base of tongue/laryngeal candidiasis noted. The condition was reviewed and explained, nystatin course prescribed. LPR can also be contributing to her symptomatology. Takes omeprazole 40 mg daily. Dietary modifications for reflux control in addition to OTC Gaviscon use discussed. RTC 6w [1] Past Medical History: Diagnosis Date Bipolar disorder, unspecified (Multi) Bipolar 1 disorder Personal history of other diseases of the digestive system History of gastritis Personal history of other diseases of the digestive system History of irritable bowel syndrome Personal history of other mental and behavioral disorders History of depression Personal history of other mental and behavioral disorders History of anxiety Personal history of other specified conditions History of chronic fatigue [2] Past Surgical History: Procedure Laterality Date OTHER SURGICAL HISTORY 05/14/2020 Appendectomy OTHER SURGICAL HISTORY 05/14/2020 Achilles tendon surgery OTHER SURGICAL HISTORY 05/14/2020 section [3] No current outpatient medications on file prior to visit. No current facility-administered medications on file prior to visit. [4] Allergies Allergen Reactions Codeine Hives Ibuprofen Hives Vicodin [Hydrocodone-Acetaminophen] GI Upset documented in this encounter [facility] Work Phone: 11-20-2024 Instructions Gonzalo Basurto MD - 11/20/2024 9:30 AM EDT REFLUX (GERD / LPR) INFORMATION SHEET TYPES OF REFLUX: * Gastroesophageal Reflux (GERD): Backflow of stomach contents (acid) into the esophagus Symptoms: Heartburn, regurgitation, swallowing problems * Laryngopharyngeal (LPR): Backflow of stomach contents into the voice box and throat Symptoms: Hoarseness, nonproductive throat clearing, cough, swallowing problems, sensation of lump in the throat, sudden shortness of breath or choking sensation (especially at night) WHY DON'T I HAVE HEARTBURN? Many patients with LPRD do not experience significant heartburn (65%). Heartburn occurs when the tissue in the esophagus becomes irritated. The lining in the larynx (voice box) and the upper throat does not have as strong a protective lining as the esophagus, therefore, it is more sensitive to stomach acid. WHAT CAN I DO TO REDUCE REFLUX? * Reduce Stress: Even a moderate amount of stress can dramatically increase the amount of reflux. * Diet: Try to maintain a healthy body weight. Eat sensible, moderate amounts. Eat meals at least 3 hours before bedtime. Avoid bedtime snacks. Certain foods have been shown to cause reflux including: Spicy, acidic and greasy foods Tomato based foods (spaghetti sauce, Niuean foods, etc.) Acidic fruit and juices (orange, tomato, cranberry juice, grapefruit, etc.) Caffeine (tea, coffee, soda, chocolate) Alcohol Dairy products Peppermint * Bedtime: Elevate the head of your bed with 4-6 inch blocks. Do not elevate your head with extra pillows as this can worsen reflux. If the entire head of the bed is tilted upwards, gravity reduces the backflow of acid. * Clothing: Avoid tight belts and other restrictive clothing * Smoking: Avoid smoking and second-hand smoke as this dramatically increases reflux * Medications: NSAIDS (ex. Advil/Motrin type meds), aspirin, steroids can aggravate reflux * Medical Therapy: H2 receptor antagonists - cimetidine, ranitidine, famotidine, etc. o Absorption is reduced 10 to 20 percent by associated antacid administration (ex. Tums) o Achieve less acid suppression than proton pump inhibitors Proton pump inhibitor - omeprazole, lansoprazole, pantoprazole, etc. o PPI's most effective when taken 30 to 60 minutes before meals on an empty stomach o PPI's can effect absorption of medications (Plavix, Coumadin, etc) so check with your pharmacist prior to initiating therapy for any interactions Alginates - Gaviscon and Gaviscon Advance o Block the stomach lining by forming a physical barrier Once on medical therapy for reflux it can take weeks or months for symptom improvement or resolution as underlying damaged tissue heals (think about a burn on your arm will take a long time to completely heal). Persistent symptoms despite appropriate, consistent medical therapy should prompt an evaluation by gastroenterology. [facility] is pleased to meet your health care needs. We strive to deliver the highest quality and most value based care possible. Thank you for giving us the opportunity to serve you. documented in this encounter [facility] Work Phone: 11-15-2024 Radiology Diagnostic study note [facility] Imaging Services [address] [place] [address] [id number] ABD Limited w/ Elastography MR#: [id number] Acct: [id number] Name: POLINA GIRON Rep #: [id number] : 1990 F 34 From: Corey Vitale MD PCP: Dr. Nataliya Gomez MD Status: REG CL I Study:ABD Limited w/ Elastography Date of Exa m: 11/15/24 Exam# [id number] Ordering Dr: Miriam Montalvo DO PROCEDURE: ABD LIMITED W/ ELASTOGRAPHY REASON FOR EXAM: ABDOMINAL PAIN COMPARISON: None. TECHNIQUE: Right upper quadrant abdominal ultrasound. [employer]urch ElastQ Imaging shear wave elastography for non-invasive assessment of liver tissue stiffness. Kulwant EPIQ Elite. FINDINGS: LIVER: Size: Unremarkable Length: 16 point cm Echotexture: Diffusely echogenic suggesting fatty infiltration Contour: Normal Lesions: None identified Elastography: EQI Med: 7.4 kPa EQI Med Dominik: 1.5 m/s IQR/Med: 21 %* GALLBLADDER: Normal COMMON BILE DUCT: Normal measuring 4.8 mm . PANCREAS: Normal Visualized portions of the right kidney are unremarkable. No right upper quadrant ascites. US/ABD Limited w/ Elastography IMPRESSION: Ennb-vk-vivkkrlk hepatic fibrosis. Fatty infiltration of the liver. Reference Values: SRU <1.37 m/s (5.7kPa): No to mild fibrosis 1.37 m/s - 2.2 m/s: Moderate to severe fibrosis >2.2 m/s (15kPa): Significant fibrosis / cirrhosis METAVIR Score F2 or higher: 1.34 m/s (5.7kPa) F3 or higher: 1.55 m/s (7.3kPa) F4: 1.80 m/s (10kPa) * If the IQR/Med is >30%, the variance in the measurements is a large and the accuracy of the measurement may be in question. Reading Location: [id number] CC: Dr. Nataliya Gomez MD; Moses Friend, DO ~ Timber Appraiser: Signed [facility] 11-07-2024 History of Present illness Narrative Visit type: Established Patient Reason for Visit: Follow-up and Migraine Assessment and Plan 1. Intractable chronic migraine without aura and without status migrainosus Subjective HPI: Failed TPX, Imitrex, Excedrin, Maxalt Given Ajovy and Aimovig approved. Aimovig caused worsening of migraines, [facility] Began Botox 06/2023 She reports the Botox is working but causes flu like sx for 3 days Body aches, loss of appetite, very tired and wants to sleep These sx began after the past 2 injections She reports only 1 migraine since 08/15/24 injection REVIEW OF SYSTEMS: Review of Systems Constitutional: Negative. HENT: Negative. Eyes: Negative. Respiratory: Negative. Cardiovascular: Negative. Gastrointestinal: Negative. Endocrine: Negative. Musculoskeletal: Negative. Skin: Negative. Allergic/Immunologic: Negative. Neurological: Positive for headaches. Hematological: Negative. Psychiatric/Behavioral: Negative. Allergies[1] Current Medications[2] Medical History[3] Social History Tobacco Use Smoking status: Every Day Current packs/day: 1.50 Average packs/day: 1.2 packs/day for 28.2 years (34.8 ttl pk-yrs) Types: Cigarettes Start date: 08/22/2011 Smokeless tobacco: Never Substance Use Topics Alcohol use: Never Surgical History[4] Family History[5] Objective Vitals: BP 106/71 (BP Location: Right arm, Patient Position: Sitting, BP Cuff Size: Large adult) Pulse 101 Ht 5' 6 (1.676 m) Wt 240 lb 3.2 oz (109 kg) LMP (LMP Unknown) BMI 38.77 kg/m General Appearance: Patient is in no [...] TSH VITAMIN B12: No results found for: OFDJIBDD20 No results found for: PHENYTOIN, PHENOBARB, VALPROATE, CBMZ No components found for: TOPIRA @RESULTINGLABINFO@ No results found for: LEVETIRACETA, FERRITIN, CRP, FRIEDA, ANCA No results found for: ADELE, IMMUNOGLOBUL, OLIGOBANDS No results found for: OBM02UW, HEPCAB No results found for: CRP, ANATITER, ANCA FERRITIN: No results found for: FERRITIN ---- MR brain w and wo contrast Narrative: Patient Name: POLINA GIRON : 1990 Exam Date/Time: 05/23/2023 15:13 Procedure: MR BRAIN [...] aura and without status migrainosus - Primary Botox is effective for treating her migraines but she is ill for 3 days following the injections Will provide samples of Qulipta to dose daily Ubrelvy as needed ANTWAN Gonsalez CNP Electronically signed by @MEMDNR@ on @TDNR@ at @NOWNR@ I, ANTWAN Gonsalez CNP, furnish ongoing care related to Polina Giron single, serious and complex condition(s) Migraine. I assume responsibility for the patient's ongoing medical care of this condition. [1] Allergies Allergen Reactions Codeine Nausea And Vomiting Other reaction(s): GI Upset Hydrocodone-Acetaminophen Nausea And Vomiting Other reaction(s): GI Upset Ibuprofen Other reaction(s): GI Upset [2] Current Outpatient Medications: albuterol 108 (90 Base) MCG/ACT inhaler, inhale 2 puffs by mouth every 4 hours if needed for wheezing or shortness of breath, Disp: , Rfl: Biotin w/ Vitamins C & E (HAIR SKIN & NAILS GUMMIES PO), Take by mouth., Disp: , Rfl: cholecalciferol (Vitamin D-3) 50 MCG (2000 UT) tablet, Take 50 mcg by mouth daily., Disp: , Rfl: drospirenone-ethinyl estradiol (Morena 28) 3-0.03 MG tablet, 1 tablet daily, skip placebos and start new pack, Disp: 56 tablet, Rfl: 6 hydrOXYzine pamoate (Vistaril) 50 MG capsule, take 1 capsule by mouth three times a day if needed for anxiety or sleep, Disp: , Rfl: lamoTRIgine (LaMICtal) 200 MG tablet, , Disp: , Rfl: Multiple Vitamins-Minerals (ONE-A-DAY WOMENS PO), Take by mouth., Disp: , Rfl: OLANZapine-Samidorphan 5-10 MG tablet, Take by mouth., Disp: , Rfl: omeprazole (PriLOSEC) [address] capsule, Take 40 mg by mouth in the morning., Disp: , Rfl: ondansetron (Zofran) 4 MG tablet, Take 4 mg by mouth., Disp: , Rfl: Ubrogepant (Ubrelvy) 100 MG tablet, Take 100 mg by mouth as needed (migraine)., Disp: 30 tablet, Rfl: 3 Xifaxan 550 MG tablet, , Disp: , Rfl: zolpidem (Ambien) 10 MG tablet, Take 10 mg by mouth Nightly., Disp: , Rfl: hyoscyamine (Anaspaz,Levsin) 0.125 MG tablet, , Disp: , Rfl: [3] Past Medical History: Diagnosis Date ADHD (attention deficit hyperactivity disorder) Anxiety 2009 Back pain Bipolar 2 disorder (CMS/HCC) (HCC) Cluster headache Depression 2004 Headache 2021 Headache, tension-type 2021 Insomnia 2004 Migraine 2021 Peripheral neuropathy Sleep apnea 2006 [4] Past Surgical History: Procedure Laterality Date ANTERIOR CRUCIATE LIGAMENT REPAIR APPENDECTOMY APPENDECTOMY SECTION (HISTORICAL) [5] Family History Problem Relation Name Age of Onset ADD / ADHD Mother Polina Anxiety disorder Mother Polina Depression Mother Polina Migraines Mother Polina 4 samples of QULIPTA were given to the patient Lot:[id number] documented in this encounter [facility] 11-07-2024 Instructions ANTWAN Marsh CNP - 11/07/2024 2:00 PM EDT Botox is effective for treating her migraines but she is ill for 3 days following the injections Will provide samples of Qulipta to dose daily Ubrelvy as needed documented in this encounter [facility] 10-24-2024 Evaluation note Diagnosis Onset Date Resolution Abdominal pain acute October 24, 2024 10:17am Diarrhea acute October 24, 2024 10:17am [facility] [place] Work Phone: 1(986) 962-745705-19-2025 History of Present illness Narrative* Valeri Kwok MD - 10/21/2024 1:21 PM EDT Ocella - no aura documented in this encounterSBethesda North HospitalXbsnxz94-16-8395 Telephone encounter Note* Telephone Encounter - Lisa Ragsdale MA - 10/21/2024 7:51 AM EDT Med request/call routed to Dr Kwok and carol valencia sent [facility] [id number] Miscellaneous Notes* Telephone Encounter - Lisa Ragsdale MA - 10/21/2024 7:51 AM EDT Med request/call routed to Dr Kwok and carol valencia sent * Telephone Encounter - Kim Phan - 10/18/2024 [...] Prior Auth Slynd initiated through Coverm[employer]. Powell: [id number] PA denied: * Telephone Encounter - Mary Kate Logan - 10/16/2024 12:44 PM EDT Name of caller: Polina Contact phone number: [phone] Relationship to Patient: patient Provider: Kerri Practice: [...] return their call: Yes documented in this encounterSBethesda North HospitalGvfmtk17-78-2699 Telephone encounter Note* Telephone Encounter - Kim Phan - 10/18/2024 4:43 PM EDT Patient states the Slynd is not covered and wants to know if she get get another medication prescribed. She states she wants to continue not having periods and doesn't want it to cause weight gain. Please call and advise. Thank you. [facility] JacksonImsehw36-44-2613 Miscellaneous Notes* Telephone Encounter - Kim Phan [...] Prior Auth Slynd initiated through [employer]. Powell: [id number] PA denied: * Telephone Encounter - Mary aKte Logan - 10/16/2024 12:44 PM EDT Name of caller: Polina Contact phone number: [phone] Relationship to Patient: patient Provider: Kerri Practice: [...] return their call: Yes documented in this [facility]05-14-2025 Telephone encounter Note* Telephone Encounter - Lisa Ragdsale MA - 10/16/2024 2:08 PM EDT Images from the original note were not included. Prior Auth Slynd initiated through [employer]. Powell: [id number] PA denied: [facility] [id number] Miscellaneous Notes* Telephone Encounter - Lisa Ragsdale MA - 10/16/2024 2:08 PM EDT Images from the original note were not included. Prior Auth Slynd initiated through [employer]. Powell: [id number] PA denied: * Telephone Encounter - Mary Kate Logan - 10/16/2024 12:44 PM EDT Name of caller: Polina Contact phone number: [phone] Relationship to Patient: patient Provider: Kerri Practice: [...] return their call: Yes documented in this encounterSBethesda North HospitalRdlffs76-37-1432 Telephone encounter Note* Telephone Encounter - Mary Kate Logan - 10/16/2024 12:44 PM EDT Name of caller: Polina Contact phone number: [phone] Relationship to Patient: patient Provider: Kerri Practice: [...] business hours to return their call: Yes [facility] [id number] History of Present illness Narrative* Valeri Kwok [...] Other reaction(s): GI Upset documented in this encounterSBethesda North HospitalPbajdw00-16-7445 Telephone encounter Note* Telephone Encounter - Lisa Ragsdale MA - 09/23/2024 8:57 AM EDT Call routed to Dr Kwok's Tanesha WADE [facility] [id number] Miscellaneous Notes* Telephone Encounter - Lisa Ragsdale MA - 09/23/2024 8:57 AM EDT Call routed to Dr Kwok's Tanesha WADE * Telephone Encounter - Soniya Balderas - 09/23/2024 8:03 AM EDT Name of caller: Polina Contact phone number: [phone] Relationship to Patient: patient Provider: Dr. Kwok Practice: [facility] Chief Complaint/Reason for Call: Polina states that the Depo injections are causing her to gain alot of weight and she would like to know if she could stop the injections and use a different contraceptive. Please advise. Best time of day caller can be reached: Any Patient advised that office/PCP has 24-48 business hours to return their call: Yes documented in this [place] [address]-21-2025 Telephone encounter Note* Telephone Encounter - Soniya Balderas - 09/23/2024 8:03 AM EDT Name of caller: Polina Contact phone number: [phone] Relationship to Patient: patient Provider: Dr. Kwok Practice: [facility] Chief Complaint/Reason for Call: Polina states that the Depo injections are causing her to gain alot of weight and she would like to know if she could stop the injections and use a different contraceptive. Please advise. Best time of day caller can be reached: Any Patient advised that office/PCP has 24-48 business hours to return their call: Yes [place] [id number] Telephone encounter Note* Telephone Encounter - Alyssa Jain MA - 09/05/2024 8:21 AM EDT Patient has been contacted [address]bwkw33-30-8027 Miscellaneous Notes* Telephone Encounter - Alyssa Jain MA - 09/05/2024 8:21 AM EDT Patient has been contacted * Telephone Encounter - ANTWAN Marsh CNP - 09/05/2024 8:09 AM EDT Please call pt to set up an appt documented in this encounterSBethesda North HospitalJeyteh32-95-4381 Telephone encounter Note* Telephone Encounter - ANTWAN Marsh CNP - 09/05/2024 8:09 AM EDT Please call pt to set up an appt [place] [id number] Telephone encounter Note* Telephone Encounter - ANTWAN Marsh CNP - 09/04/2024 9:57 AM EDT Noted [place] [id number] Miscellaneous Notes* Telephone Encounter - ANTWAN Marsh [...] to reach someone in office. RN called [facility] neuro backline for further assistance. Office staff advised encounter has been akilah Ryder and she will reach out after reviewed. Patient made aware. States it is not an emergency but just wanted to let her know. No further needsat this time. Patient can be reached at [phone]. * Telephone Encounter - Tiesha Valles RN - 09/04/2024 7:02 AM EDT S: The patient is calling the [facility] about Botox injections B: She received these [...] Protocols used: Information Only Call - No [id number] documented in this encounterSBethesda North HospitalKgixlu40-49-6021 Telephone encounter Note* Telephone Encounter - Alyssa Jain MA - 09/04/2024 9:02 AM EDT patient has been notified of providers message She states she will try one more time and if it happens again she will stop the botox injections [facility] [id number] Telephone encounter Note* Telephone Encounter - ANTWAN Marsh CNP - 09/04/2024 8:57 AM EDT We will cancel the Botox per her request [place] [id number] Telephone encounter Note* Telephone Encounter - Alyssa Jain MA - 09/04/2024 8:47 AM EDT Spoke with patient she stated the symptoms started 1 week after her botox injections. She also has scabs on her head. [address]Fqpmjp91-57-1243 Telephone encounter Note* Telephone Encounter - Alyssa Jain MA - 09/04/2024 8:46 AM EDT Lm for patient to call the office back, please relay providers message. [facility] JacksonIejwsy18-13-5149 Telephone encounter Note* Telephone Encounter - ANTWAN Marsh CNP - 09/04/2024 8:25 AM EDT Those symptoms she is having are NOT from the Botox. She needs to contact her PCP [facility] [id number] Telephone encounter Note* Telephone Encounter - Yane Sotelo RN - 09/04/2024 7:50 AM EDT Having reaction from Botox, flu like symptoms for 3-4 days on head. States she called in and spoke with nurse this AM, was calling back in during office hours to reach someone in office. RN called [facility] neuro backline for further assistance. Office staff advised encounter has been akilah Ryder and she will reach out after reviewed. Patient made aware. States it is not an emergency but just wanted to let her know. No further needsat this time. Patient can be reached at [phone]. [place] [id number] Telephone encounter Note* Telephone Encounter - Tiesha Valles RN - 09/04/2024 7:02 AM EDT S: The patient is calling the [facility] about Botox injections B: She received these [...] Protocols used: Information Only Call - No [id number] [facility] [id number] Radiology Diagnostic study note [facility] Imaging Services [address] [place] [place] [address] Lumbar Spine 2 or 3 Views MR#: [id number] Acct: [id number] Name: POLINA GIRON Rep #: [id number] : 1990 F 34 From: Arnol Willson MD PCP: Dr. Nataliya Gomez MD Status: REG CL I Study:Lumbar Spine 2 or 3 Views Date of Exam: 08/19/24 Exam# [id number] Ordering Dr: Diana Gomez MD PROCEDURE: LUMBAR [...] If persistent concern, consider MRI Reading Location: [id number] CC: Dr. Nataliya Gomez MD ~ Timber Appraiser: Signed [facility] [place]03-13-2025 History of Present illness Narrative* Megan Mason, ANTWAN - TOUR ESCORT - 08/15/2024 2:00 PM EDT DEPARTMENT OF [...] 2. L Frontalis 10 units 3. R Jackaroo 10 units 4. L Jackaroo 10 units 5. R Temporalis 30 units 6. L Temporalis 30 units 7. R Occipitalis 30 units 8. L Occipitalis 30 units 9. R Trapezious 20 units 10.L Trapezious 20 units Total units injected 200 units. Units discarded 0 units. She reports >75% reduction in migraines with Botox Comments: Botox is Patient Supplied [facility] [phone] [x] Pt tolerated procedure well. Pt advised to avoid exercise or strenuous physical activity for 24hours. Post treatment expectations reviewed in detail. ANTWAN Gonsalez CNP documented in this [facility]03-13-2025 NoteDEPARTMENT OF NEUROLOGY BOTOX PROCEDURE NOTE [...] 2. L Frontalis 10 units 3. R Jackaroo 10 units 4. L Jackaroo 10 units 5. R Temporalis 30 units 6. L Temporalis 30 units 7. R Occipitalis 30 units 8. L Occipitalis 30 units 9. R Trapezious 20 units 10.L Trapezious 20 units Total units injected 200 units. Units discarded 0 units. She reports >75% reduction in migraines with Botox Comments: Botox is Patient Supplied [facility] [id number] [x] Pt tolerated procedure well. Pt advised to avoid exercise or strenuous physical activity for 24 hours. Post treatment expectations reviewed in detail. Megan Mason APRN - [facility]02-24-2025 Telephone encounter Note* Telephone Encounter - Sushma West - 07/29/2024 1:56 PM EST The patient has upcoming Botox appt on 08/15/2024 The Botox will be supplied by at [facility] and delivered to the MD office on 08/06/2024 BOTOX IS PATIENT SUPPLIED!!! # of Units to be Administered: 200 Medication: botox Dosing Schedule: once every 12 weeks Prior Authorization: Approved (pharmacy benefit) [facility] [id number] Miscellaneous Notes* Telephone Encounter - Sushma West - 07/29/2024 1:56 PM EST The patient has upcoming Botox appt on 08/15/2024 The Botox will be supplied by us at [facility] and delivered to the MD office on 08/06/2024 BOTOX IS PATIENT SUPPLIED!!! # of Units to be Administered: 200 Medication: botox Dosing Schedule: once every 12 weeks Prior Authorization: Approved (pharmacy benefit) documented in this [facility]02-03-2025 Telephone encounter Note* Telephone Encounter - Lisa Ragsdale MA - 07/08/2024 8:49 AM EST [place]: 12/13/23 NOV: Refill pended for approval Depo with 0 refills. [facility] [id number] Miscellaneous Notes* Telephone Encounter - Lisa Ragsdale MA - 07/08/2024 8:49 AM EST [place]: 12/13/23 NOV: Refill pended for approval Depo with 0 refills. documented in this encounterSBethesda North HospitalFcvxid64-56-1070 Telephone encounter Note* Telephone Encounter - Margret Whitt [facility] - 07/03/2024 9:13 AM EST [facility] investigating ubrelvy [facility] [id number] Miscellaneous Notes* Telephone Encounter - Margret Whitt [facility] - 07/03/2024 9:13 AM EST [facility] * Telephone Encounter - [...] Name of caller: Polina Contact phone number: [phone] Relationship to Patient: patient Provider: ROBERT Mason Practice: [facility] Neurology Rashawn Chief Complaint/Reason for Call: Polina states that she does not have a transportation to come tothe office and crab picker samples of Ubrelvy. Polina states that she is requesting to have a script sent to [id number], as soon as possible. Please advise. Best [...] encounter: Yes Patient is inquiring if the [facility] pharmacy can deliver samples of Ubrelvy to her. Please advise. documented in this encounterSBethesda North HospitalXhetoh62-26-8039 Telephone encounter Note* Telephone Encounter - ANTWAN Marsh CNP - 07/03/2024 9:05 AM EST Let her know that we have to get approval for Ubrelvy first--I sent a message to [facility] [id number] Telephone encounter Note* Telephone Encounter - ANTWAN Marsh CNP - 07/03/2024 9:04 AM EST Is it possible to get Ubrelvy approved? [facility] [id number] Telephone encounter Note* Telephone Encounter - Soniya Balderas - 07/03/2024 8:37 AM EST Name of caller: Polina Contact phone number: [phone] Relationship to Patient: patient Provider: ROBERT Mason Practice: [facility] Neurology [place] Chief Complaint/Reason for Call: Polina states that she does not have a transportation to come tothe office and crab picker samples of Ubrelvy. Polina states that she is requesting to have a script sent to [email or web address] #[id number], as soon as possible. Please advise. Best time of day caller can be reached: Any Patient advised that office/PCP has 24-48 business hours to return their call: No [address]Vxqmza16-23-5185 Telephone encounter Note* Telephone Encounter - Alyssa Jain MA - 07/03/2024 8:18 AM EST Lm for patient to call the office back, please let her know samples can not be mailed. [facility] Zlfrbl04-31-9166 Telephone encounter Note* Telephone Encounter - Valerie Haley MA - 07/03/2024 7:47 AM EST See other TE [address]Ptuvhx14-87-9938 Miscellaneous Notes* Telephone Encounter - Valerie Haley [...] > 24 hours and unexplained Protocols used: [id number]-JU documented in this encounterSBethesda North HospitalVkxplm21-05-9923 Telephone encounter Note* Telephone Encounter - Jenni Juarez - 07/02/2024 4:01 PM EST Please see previous TE Message released to patient as written. Patient's further questions if applicable: N/A Were all questions from office addressed or relayed to the patient from encounter: Yes Patient is inquiring if the [facility] pharmacy can deliver samples of Ubrelvy to her. Please advise. [facility] [id number] Telephone encounter Note* Telephone Encounter - Valerie Haley MA - 07/02/2024 3:54 PM EST Lm for patient to call the office back, please relay providers message. [facility] [id number] Telephone encounter Note* Telephone Encounter - ANTWAN Marsh CNP - 07/02/2024 3:11 PM EST Please contact pt and have her stop in and get samples of Ubrelvy-4 of the 100mgs [facility] [id number] Telephone encounter Note* Telephone Encounter - Sudhakar [...] > 24 hours and unexplained Protocols used: [id number]-FN [facility] [id number] Telephone encounter Note* Telephone Encounter - Yuriy [...] to the office to discuss. Thank you! [facility] [id number] Miscellaneous Notes* Telephone Encounter - Yuriy Hall [...] to discuss. Thank you! documented in this [facility]12-19-2024 History of Present illness Narrative* Megan Mason, ANTWAN - ROBERT - 05/23/2024 2:30 PM EST DEPARTMENT OF [...] 2. L Frontalis 10 units 3. R Jackaroo 10 units 4. L Jackaroo 10 units 5. R Temporalis 30 units 6. L Temporalis 30 units 7. R Occipitalis 30 units 8. L Occipitalis 30 units 9. R Trapezious 20 units 10.L Trapezious 20 units Total units injected 200 units. Units discarded 0 units. Patient reports only 3 headaches since last Botox injection Comments: Botox is Patient Supplied [facility] [id number] [x] Pt tolerated procedure well. Pt advised to avoid exercise or strenuous physical activity for 24hours. Post treatment expectations reviewed in detail. ANTWAN Gonsalez CNP documented in this [facility]12-19-2024 [facility] B[facility]OX PROCEDURE NOTE FOR HEADACHE [...] 2. L Frontalis 10 units 3. R Jackaroo 10 units 4. L Jackaroo 10 units 5. R Temporalis 30 units 6. L Temporalis 30 units 7. R Occipitalis 30 units 8. L Occipitalis 30 units 9. R Trapezious 20 units 10.L Trapezious 20 units Total units injected 200 units. Units discarded 0 units. Patient reports only 3 headaches since last Botox injection Comments: Botox is Patient Supplied [facility] [id number] [x] Pt tolerated procedure well. Pt advised to avoid exercise or strenuous physical activity for 24 hours. Post treatment expectations reviewed in detail. Megan Mason APRN - [facility]11-01-2024 Telephone encounter Note* Telephone Encounter - Lisa Ragsdale MA - 04/05/2024 2:57 PM EDT [place]: 12/13/23 NOV: Refill pended for approval Depo-Provera with 0 refills. [facility] [id number] Miscellaneous Notes* Telephone Encounter - Lisa Ragsdale MA - 04/05/2024 2:57 PM EDT [place]: 12/13/23 NOV: Refill pended for approval Depo-Provera with 0 refills. documented in this [facility]09-25-2024 History of Present illness Narrative* ANTWAN Marsh [...] 2. L Frontalis 10 units 3. R Jackaroo 10 units 4. L Jackaroo 10 units 5. R Temporalis 30 units 6. L Temporalis 30 units 7. R Occipitalis 30 units 8. L Occipitalis 30 units 9. R Trapezious 20 units 10.L Trapezious 20 units Total units injected 200 units. Units discarded 0 units. She reports only 3 migraine since last Botox injections Comments: Botox is Patient Supplied [facility] [phone] [x] Pt tolerated procedure well. Pt advised to avoid exercise or strenuous physical activity for 24hours. Post treatment expectations reviewed in detail. ANTWAN Gonsalez CNP documented in this [facility]09-25-2024 Miscellaneous Notes* Addendum Note - Valerie Haley MA - 02/28/2024 2:30 PM EDTAddended by: VALERIE HALEY on: 02/28/2024 03:16 PM Modules accepted: Orders * Addendum Note - ANTWAN Marsh CNP - 02/28/2024 2:30 PM EDTAddended by: BRITNI MASON on: 02/28/2024 03:20 PM Modules accepted: Orders documented in this [facility]09-25-2024 Note* Addendum Note - Valerie Haley MA - 02/28/2024 2:30 PM EDTAddended by: VALERIE HALEY on: 02/28/2024 03:16 PM Modules accepted: Orders [facility] [id number] Note* Addendum Note - ANTWAN Marsh CNP - 02/28/2024 2:30 PM EDTAddended by: BRITNI MASON on: 02/28/2024 03:20 PM Modules accepted: Orders [facility] [id number] Note* Addendum Note - Valerie Haley MA - 02/28/2024 2:30 PM EDTAddended by: VALERIE HALEY on: 02/28/2024 03:16 PM Modules accepted: Orders [facility] [id number] Note* Addendum Note - ANTWAN Marsh CNP - 02/28/2024 2:30 PM EDTAddended by: BRITNI MASON on: 02/28/2024 03:20 PM Modules accepted: Orders [place] [id number] Note* Addendum Note - Valerie Haley MA - 02/28/2024 2:30 PM EDTAddended by: VALERIE HALEY on: 02/28/2024 03:16 PM Modules accepted: Orders [place] [id number] Note* Addendum Note - ANTWAN Marsh CNP - 02/28/2024 2:30 PM EDTAddended by: BRITNI MASON on: 02/28/2024 03:20 PM Modules accepted: Orders [place] [id number] Note* Addendum Note - Valerie Haley MA - 02/28/2024 2:30 PM EDTAddended by: VALERIE HALEY on: 02/28/2024 03:16 PM Modules accepted: Orders [place] [id number] Note* Addendum Note - ANTWAN Marsh CNP - 02/28/2024 2:30 PM EDTAddended by: BRITNI MASON on: 02/28/2024 03:20 PM Modules accepted: Orders [place] [id number] Note* Addendum Note - Valerie Haley MA - 02/28/2024 2:30 PM EDTAddended by: VALERIE HALEY on: 02/28/2024 03:16 PM Modules accepted: Orders [place] [id number] Note* Addendum Note - ANTWAN Marsh CNP - 02/28/2024 2:30 PM EDTAddended by: BRITNI MASON on: 02/28/2024 03:20 PM Modules accepted: Orders [place] [id number] Note* Addendum Note - Valerie Haley MA - 02/28/2024 2:30 PM EDTAddended by: VALERIE HALEY on: 02/28/2024 03:16 PM Modules accepted: Orders [place] [id number] Note* Addendum Note - ANTWAN Marsh CNP - 02/28/2024 2:30 PM EDTAddended by: BRITNI MASON on: 02/28/2024 03:20 PM Modules accepted: Orders [place] [id number] Note* Addendum Note - Valerie Haley MA - 02/28/2024 2:30 PM EDTAddended by: VALERIE HALEY on: 02/28/2024 03:16 PM Modules accepted: Orders [place] [id number] Note* Addendum Note - ANTWAN Marsh CNP - 02/28/2024 2:30 PM EDTAddended by: BRITNI MASON on: 02/28/2024 03:20 PM Modules accepted: Orders [place] [id number] NoteDEPARTMENT OF NEUROLOGY BOTOX PROCEDURE NOTE FOR [...] 2. L Frontalis 10 units 3. R Jackaroo 10 units 4. L Jackaroo 10 units 5. R Temporalis 30 units 6. L Temporalis 30 units 7. R Occipitalis 30 units 8. L Occipitalis 30 units 9. R Trapezious 20 units 10.L Trapezious 20 units Total units injected 200 units. Units discarded 0 units. She reports only 3 migraine since last Botox injections Comments: Botox is Patient Supplied [facility] [id number] [x] Pt tolerated procedure well. Pt advised to avoid exercise or strenuous physical activity for 24 hours. Post treatment expectations reviewed in detail. Megan Mason APRN - [facility]09-25-2024 Note Addended by: BRITNI MASON on: 02/28/2024 03:20 PM Modules accepted: [facility]09-25-2024 NoteAddended by: VALERIE HALEY on: 02/28/2024 03:16 PM Modules accepted: [facility]08-27-2024 Telephone encounter Note* Telephone Encounter - Alyssa Jain MA - 01/30/2024 9:40 AM EDT Patient has been [facility]cheduled [facility] [id number] Miscellaneous Notes* Telephone Encounter - Alyssa Jain MA - 01/30/2024 9:40 AM EDT Patient has been rescheduled * Telephone Encounter - Soniya Balderas - 01/30/2024 9:37 AM EDT Name of Caller: Polina Contact Reason for Appointment: Reschedule 01/24 botox appointment for two weeks out Office Name: [facility] Neurology Rashawn documented in this encounterSBethesda North HospitalOtsikm94-50-7258 Telephone encounter Note* Telephone Encounter - Soniya Balderas - 01/30/2024 9:37 AM EDT Name of Caller: Polina Contact Reason for Appointment: Reschedule 01/24 botox appointment for two weeks out Office Name: [facility] Beck [place] [id number] Telephone encounter Note* Telephone Encounter - Clare Maurice - 01/11/2024 1:04 PM EDT Patients prescription insurance currently doesn't require prescription rx pa sorry about that, thanks! [place] [id number] Miscellaneous Notes* Telephone Encounter - Clare Maurice [...] Botox will be supplied by us at [facility] and delivered to the MD office on 01/23/24. BOTOX IS PATIENT SUPPLIED!!! # of Units to be Administered: 200 Medication: botox Dosing Schedule: once every 12 weeks Prior Authorization: Approved (pharmacy benefit) documented in this encounterSBethesda North HospitalRsjkfx86-03-3782 Telephone encounter Note* Telephone Encounter - Alyssa Jain MA - 01/11/2024 9:42 AM EDT Can we have the auth dates please [place] [id number] Telephone encounter Note* Telephone Encounter - Clare Maurice - 01/11/2024 9:37 AM EDT The patient has upcoming Botox appt on 01/25/24. The Botox will be supplied by us at [facility] and delivered to the MD office on 01/23/24. BOTOX IS PATIENT SUPPLIED!!! # of Units to be Administered: 200 Medication: botox Dosing Schedule: once every 12 weeks Prior Authorization: Approved (pharmacy benefit) [facility] [id number] Telephone encounter Note* Telephone Encounter - Lisa Ragsdale MA - 01/05/2024 11:00 AM EDT [place]: 12/13/23 NOV: Refill pended for approval Depo-Provera with 0 refills. [place] [id number] Miscellaneous Notes* Telephone Encounter - Lisa Ragsdale MA - 01/05/2024 11:00 AM EDT [place]: 7/10/24 NOV: Refill pended for approval Depo-Provera with 0 refills. documented in this [facility]07-29-2024 Telephone encounter Note* Telephone Encounter - Soniya Wiseley - 01/01/2024 10:37 AM EDT Message released to patient as written. Patient's further questions if applicable: yes Were all questions from office addressed or relayed to the patient from encounter: Yes [facility] JacksonNcsput73-23-3738 Miscellaneous Notes* Telephone Encounter - Soniyaclemente Haney - 01/01/2024 10:37 AM EDT Message released to patient as written. Patient's further questions if applicable: yes Were all questions from office addressed or relayed to the patient from encounter: Yes documented in this [place] [address]-10-2024 History of Present illness Narrative* Valeri Kwok MD - 12/13/2023 12:15 PM EDT Polina Giron 12/13/2022 33 y.o. Primary Care [...] 2021 Insomnia 2004 Migraine 2021 Sleep apnea 2007 Past Surgical History: Procedure Laterality Date ANTERIOR [...] Resource Strain: Medium Risk (09/29/2021) Received from [facility] Overall Financial Resource Strain (CARDIA) Difficulty of Paying Living Expenses: Somewhat hard Food Insecurity: Food Insecurity Present (09/29/2021) Received from [facility] Hunger Vital Sign Worried About Running Out of Food in the Last Year: Sometimes true Ran Out of Food in the Last Year: Never true Transportation Needs: No Transportation Needs (09/29/2021) Received from [facility] PRAPARE - Transportation Lack of Transportation (Medical): No Lack of Transportation (Non-Medical): No Physical Activity: Insufficiently Active (09/29/2021) Received from [facility] Exercise Vital Sign Days of Exercise per Week: 2 days Minutes of Exercise per Session: 30 min Stress: Stress Concern Present (09/29/2021) Received from [facility] Occupational [facility] - Occupational Stress Questionnaire Feeling of Stress : To some extent Social Connections: Socially Isolated (09/29/2021) [facility] Social Connection and Isolation Panel [NHANES] Frequency of Communication with Friends and Family: Twice a week Frequency of Social Gatherings with Friends and Family: Never Attends Adventism Services: Never Active Member of Clubs or Organizations: No Attends Club or Organization Meetings: Never Marital Status: Never Intimate Partner Violence: Not on file Housing Stability: Low Risk (09/29/2021) Received from [facility] Housing Stability Vital Sign Unable to Pay for Housing in the Last Year: No Number of Places Lived in the Last Year: 2 In the last 12 months, was there a time when you did not have a steady place to sleep or slept in [facility] (including now)?: No MEDICATIONS: Current Outpatient Medications [...] Body mass index is 40.19 kg/m . 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 Pelvic Health Therapy [facility]; Future Normal exam Will try PT for bladder If does not work send to urp/criminal justice professor Cult done Follow up if symptoms worsen or fail to improve. * Tanesha Braxton MA - 12/13/2023 12:15 PM EDT [employer] was offered to the patient for exam. Patient accepted, medical scientific liaison in room during exam and consult. documented in this encounterSBethesda North HospitalZanmmt88-69-5783 Telephone encounter Note* Telephone Encounter - Lisa Ragsdale MA - 11/20/2023 12:02 PM EDT [place]: NOV: 11/22/2023 Refill pended for approval Depo-Provera with 0 refills. [facility] [id number] Miscellaneous Notes* Telephone Encounter - Lisa Ragsdale MA - 11/20/2023 12:02 PM EDT [place]: NOV: 11/22/2023 Refill pended for approval Depo-Provera with 0 refills. documented in this [facility]05-28-2024 History of Present illness Narrative* ANTWAN Marsh [...] 2. L Frontalis 10 units 3. R Jackaroo 10 units 4. L Jackaroo 10 units 5. R Temporalis 30 units 6. L Temporalis 30 units 7. R Occipitalis 30 units 8. L Occipitalis 30 units 9. R Trapezious 20 units 10.L Trapezious 20 units Total units injected 200 units. Units discarded 0 units. Comments: Botox is Patient Supplied [facility] [id number] [x] Pt tolerated procedure well. Pt advised to avoid exercise or strenuous physical activity for 24hours. Post treatment expectations reviewed in detail. ANTWAN Gonsalez CNP documented in this [facility]05-14-2024 Telephone encounter Note* Telephone Encounter - Princess Rios RN - 10/17/2023 8:39 AM EDT S: Patient spoke with [facility] nurse regarding urinary incontinence issues. B: Onset of symptoms/concern since 2013 after she had her baby. A: Pt states she has been having issues with urinary incontinence, frequency at times and some pelvic pressure since 2013. Pt has seen PCP for eval and was told to follow up with [facility] for advice. Denies fever, blood in urine, [...] No - on Depo Protocols used: Urinary Ngcbvfiu-[id number]-RB [facility] [id number] Miscellaneous Notes* Telephone Encounter - Princess Rios RN - 10/17/2023 8:39 AM EDT S: Patient spoke with [facility] nurse regarding urinary incontinence issues. B: Onset of symptoms/concern since 2013 after she had her baby. A: Pt states she has been having issues with urinary incontinence, frequency at times and some pelvic pressure since 2013. Pt has seen PCP for eval and was told to follow up with [employer] for advice. Denies fever, blood in urine, foul odor to urine, pain with urination. Pt is also requesting pap at her next appt. R: Appt scheduled for . Pt requesting appt for November. Ins verified. [...] No - on Depo Protocols used: Urinary Agtctquc-KTLYD-JJ documented in this encounterSBethesda North HospitalTrrggs51-88-0118 Telephone encounter Note* Telephone Encounter - Lisa Ragsdale MA - 09/12/2023 11:01 AM EDT Sent pt mssg via [employer] about her refill request being sent to Dr. Drea Preciado [facility] [id number] Miscellaneous Notes* Telephone Encounter - Lisa Ragsdale MA - 09/12/2023 11:01 AM EDT Sent pt mssg via [employer] about her refill request being sent to Dr. Drea Preciado * Telephone Encounter - Lisa Ragsdale MA - 09/12/2023 10:56 AM EDT [place]: 06/27/23 NOV: 09/20/23 Refill pended for approval Depo-Provera with 0 refills. * Telephone Encounter - Maci Graves - 09/11/2023 4:58 PM EDT Name of caller: Polina Giron Contact phone number: [phone] Relationship to Patient: patient Provider: Ozzy Practice: [facility] Janae Chief Complaint/Reason for Call: Pt called to reschedule her depo shot appt due to ride issues but she also wanted to make sure that she had refills to [facility] and bring with her to the [...] return their call: Yes documented in this encounterSBethesda North HospitalRwpglf10-41-1701 Telephone encounter Note* Telephone Encounter - Lisa Ragsdale MA - 09/12/2023 10:56 AM EDT [place]: 06/27/23 NOV: 09/20/23 Refill pended for approval Depo-Provera with 0 refills. [facility] [id number] Telephone encounter Note* Telephone Encounter - Maci Graves - 09/11/2023 4:58 PM EDT Name of caller: Polina Giron Contact phone number: [phone] Relationship to Patient: patient Provider: Ozzy Practice: [facility] Janae Chief Complaint/Reason for Call: Pt called to reschedule her depo shot appt due to ride issues but she also wanted to make sure that she had refills to [facility] pick[facility] and bring with her to the [...] business hours to return their call: Yes [facility] JacksonNoczvd61-44-8966 Telephone encounter Note* Telephone Encounter - Alyssa Jain MA - 08/25/2023 10:49 AM EDT Noted [facility] [id number] Miscellaneous Notes* Telephone Encounter - Alyssa Jain MA - 08/25/2023 10:49 AM EDT Noted * Telephone Encounter - Sushma West - 08/25/2023 10:45 AM EDT The patient has upcoming Botox appt on 09/13. The Botox will be supplied by us at [facility] and deliveredto the MD office on 09/04. BOTOX IS PATIENT SUPPLIED!!! # of Units to be Administered: 200 Medication: Dosing Schedule: once every 12 weeks Prior Authorization: Approved (pharmacy benefit) [facility] reference #: [id number] Approval dates: 02/10/2023 - 11/08/2023 Number of Units Approved: 200 units per visit documented in this encounterSBethesda North HospitalFvmnel78-20-8297 Telephone encounter Note* Telephone Encounter - Sushma West - 08/25/2023 10:45 AM EDT The patient has upcoming Botox appt on 09/13. The Botox will be supplied by us at [facility] and deliveredto the MD office on 09/04. BOTOX IS PATIENT SUPPLIED!!! # of Units to be Administered: 200 Medication: Dosing Schedule: once every 12 weeks Prior Authorization: Approved (pharmacy benefit) [place] reference #: [id number] Approval dates: 02/10/2023 - 11/08/2023 Number of Units Approved: 200 units per visit [employer] CompanyMalcas09-53-2780 History of Present illness Narrative* Megan Mason, ANTWAN - [facility] - 08/17/2023 2:30 PM EDT Patient was [...] 2008 Back pain Bipolar 2 disorder (CMS/HCC) ([facility]) Cluster headache Depression 2004 Headache 2021 Headache, tension-type 2021 Insomnia 2005 Migraine 2021 Social History Tobacco Use Smoking [...] TSH VITAMIN B12: No results found for: [id number] No results found for: PHENYTOIN, PHENOBARB, VALPROATE, CBMZ No components found for: TOPIRA @RESULTINGLABINFO@ No results found for: LEVETIRACETA, FERRITIN, CRP, FRIEDA, ANCA No results found for: ADELE, IMMUNOGLOBUL, OLIGOBANDS No results found for: IHI00ZD, HEPCAB No results found for: CRP, ANATITER, ANCA FERRITIN: No results found for: FERRITIN ---- MR brain w and wo contrast Narrative: [facility] 1990 [id number] Exam Date/Time: 05/23/2023 15:13 Procedure: MR BRAIN [...] Plan notes found for this encounter. Megan Mason, ANTWAN - ROBERT I spent 20 minutes caring for this patient today, reviewing labs, records, seeing the patient, documenting in the record and arranging for studies. Electronically signed by @ALTA@ on @TDNR@ at @NOWNR@ . The patient [...] stated that they are currently in the state [facility]. If the patient is a minor, permission has been obtained by the parent or guardian for the patient to receive medical care at this visit. documented in this [facility]03-14-2024 Instructions* Patient Instructions* ANTWAN Marsh CNP - 08/17/2023 2:30 PM EDT She reports improvement in migraines with first round of Botox. No adverse reactions Will proceed with second round. Nurtec as needed documented in this [facility]01-25-2024 Telephone encounter Note* Telephone Encounter - Markos Gomes - 06/29/2023 11:13 AM EST Message released to patient as written. Patient's further questions if applicable: Polina expresses understanding of this message. Pleasebe advised. Were all questions from office addressed or relayed to the patient from encounter: Yes [facility] [id number] Miscellaneous Notes* Telephone Encounter - Markos Gomes [...] Name of caller: Polina Contact phone number: [phone] Relationship to Patient: patient Provider: Megan Mason CNP Practice: [facility] Chief Complaint/Reason for Call: Patient states that she would like to discuss the results from herMRI that was completed in May. Please advise. Best time of day caller can be reached: Any Patient advised that office/PCP has 24-48 business hours to return their call: Yes documented in this encounterSBethesda North HospitalTfjdhc64-91-6147 Telephone encounter Note* Telephone Encounter - Alyssa Jain MA - 06/29/2023 10:57 AM EST Lm for patient to call the office back, please relay providers message. [facility] JacksonIsmbpg77-77-4210 Telephone encounter Note* Telephone Encounter - ANTWAN Marsh CNP - 06/29/2023 10:48 AM EST MRI brain-limited by motion but normal [facility] [id number] Telephone encounter Note* Telephone Encounter - Maxime Mcneal - 06/29/2023 9:50 AM EST Name of caller: Polina Contact phone number: [phone] Relationship to Patient: patient Provider: Megan Mason CNP Practice: [facility] Chief Complaint/Reason for Call: Patient states that she would like to discuss the results from herMRI that was completed in May. Please advise. Best time of day caller can be reached: Any Patient advised that office/PCP has 24-48 business hours to return their call: Yes [facility] [id number] History of Present illness Narrative* ANTWAN Marsh [...] 2. L Frontalis 10 units 3. R Jackaroo 10 units 4. L Jackaroo 10 units 5. R Temporalis 30 units 6. L Temporalis 30 units 7. R Occipitalis 30 units 8. L Occipitalis 30 units 9. R Trapezious 20 units 10.L Trapezious 20 units Total units injected 200 units. Units discarded 0 units. This is her first round of Botox Comments: Botox is Patient Supplied [facility] [id number] [x] Pt tolerated procedure well. Pt advised to avoid exercise or strenuous physical activity for 24hours. Post treatment expectations reviewed in detail. ANTWAN Marsh CNP documented in this [facility]12-11-2023 Telephone encounter Note* Telephone Encounter - Margret Whitt [facility] - 05/15/2023 4:18 PM EST Med will be sent to office 05/23 Botox patient supplied Approval [id number] 02/10/23-11/08/23 [facility] supplies [facility] [id number] Miscellaneous Notes* Telephone Encounter - Margret Whitt [facility] - 05/15/2023 4:18 PM EST Med will be sent to office 05/23 Botox patient supplied Approval [id number] 02/10/23-11/08/23 [facility] supplies * Telephone Encounter - lAyssa Jain MA - 05/15/2023 9:41 AM EST [...] she calls back. * Telephone Encounter - Megan Mason APRN - ROBERT - 05/15/2023 8:16 AM EST Received message from [facility] that Botox is approved. Please contact pt to schedule apptand then let [facility] know date of appt please. documented in this encounterSBethesda North HospitalOmxpqb67-67-3151 Telephone encounter Note* Telephone Encounter - Alyssa Jain MA - 05/15/2023 9:41 AM EST Patient has been scheduled for 05/24/23 at 2:30 pm [place] [id number] Telephone encounter Note* Telephone Encounter - Mary Kate Wilhelm - 05/15/2023 9:26 AM EST Patient returned call - unable to get through back line - please return call to patient. [address]Ktrgyn24-64-3656 Telephone encounter Note* Telephone Encounter - Alyssa Jain MA - 05/15/2023 8:24 AM EST Lm for patient to call the office back, please transfer her back to the office when she calls back. [facility] JacksonQvdsih76-66-2595 Telephone encounter Note* Telephone Encounter - ANTWAN Marsh CNP - 05/15/2023 8:16 AM EST Received message from [facility] that Botox is approved. Please contact pt to schedule apptand then let [facility] know date of appt please. [facility] [id number] Telephone encounter Note* Telephone Encounter - Margret Whitt [facility] - 05/12/2023 4:11 PM EST Patient needs scheduled for botox appointment. Please schedule out so that [facility] has time to send tothe office BOTOX IS PATIENT SUPPLIED!!! # of Units to be Administered: 200 Medication: Botox 200 Dosing Schedule: 200 units every 12 weeks Prior Authorization: [place] reference #:[id number] Approval dates: 02/10/23-11/08/23 Number of Units Approved: 200 per visit [facility] JacksonDfulra35-05-2768 Miscellaneous Notes* Telephone Encounter - Margret Whitt RPh - 05/12/2023 4:11 PM EST Patient needs scheduled for botox appointment. Please schedule out so that [facility] has time to send tothe office BOTOX IS PATIENT SUPPLIED!!! # of Units to be Administered: 200 Medication: Botox 200 Dosing Schedule: 200 units every 12 weeks Prior Authorization: [facility] reference #:[id number] Approval dates: 02/10/23-11/08/23 Number of Units Approved: 200 per visit documented in this encounterSBethesda North HospitalCqajfl28-44-7115 History of Present illness Narrative* Megan Mason APRN - [facility] - 05/11/2023 8:30 AM EST Visit [...] 2008 Back pain Bipolar 2 disorder (CMS/HCC) ([facility]) Depression 2004 Headache 2021 Headache, tension-type 2021 [...] TSH VITAMIN B12: No results found for: [id number] No results found for: PHENYTOIN, PHENOBARB, VALPROATE, CBMZ No components found for: TOPIRA @RESULTINGLABINFO@ No results found for: LEVETIRACETA, FERRITIN, CRP, FRIEDA, ANCA No results found for: ADELE, IMMUNOGLOBUL, OLIGOBANDS No results found for: NGX24EX, HEPCAB No results found for: CRP, ANATITER, ANCA FERRITIN: No results found for: FERRITIN ---- XR FOOT STANDARD BILATERAL Narrative: [id number] Radiology ACCESSION EXAM DATE/TIME PROCEDURE ORDERING PROVIDER [phone] 09/16/2021 13:27 EDT CR Foot Complete 3+ SOPHIE GERMAN D Views Bilateral CPT code 53461 Reason For Exam (CR Foot Complete 3+ [...] Plan notes found for this encounter. Megan Marlon, PATIENT ACCESS - TOUR ESCORT I spent 30 minutes caring for this patient today, reviewing labs, records, seeing the patient, documenting in the record and arranging for studies. Electronically signed by @JERMANR@ on @TDNR@ at @NOWNR@ documented in this [facility]12-07-2023 Instructions* Patient Instructions* ANTWAN Marsh CNP [...] 2 hours if needed documented in this [facility]11-07-2023 Hospital Discharge instructions Patient Education 04/11/2023 [...] the smoke from others. You may use gbuh-tsg-njgsqso acetaminophen or ibuprofen for fever, muscle aching, [...] body and be dangerous to your health. Nbud-lnx-nemlcql remedies won't shorten the length of the [...] or as directed by your healthcare provider [id number] [employer] [address] [place] [address]. All rights reserved. This information is not intended as a substitute for professional medical care. Always follow yourhealthcare professional's instructions. Follow Up Care 04/11/2023 12:00:11 With:BERTO NASH MD Address: [address] [place] [phone] When:2-4 days [facility] 11-07-2023 Emergency department Discharge summary Discharge Instructions Thank you for allowing [facility] to assist you with your healthcare needs. [...] NASH MD When Within 2-4 days Where: [facility] [place] [address] [phone] Allergies Vicodin codeine sulfate Medications Please ask [...] the smoke from others. You may use fflm-cpq-dpfinyh acetaminophen or ibuprofen for fever, muscle aching, [...] body and be dangerous to your health. Iinf-her-wdbccar remedies won't shorten the length of the [...] or as directed by your healthcare provider [phone] [employer]. [address] [place] [address]. All rights reserved. This information is not intended as a substitute for professional medical care. Always follow yourhealthcare professional's instructions. Additional Information VACCINATE! IT SAVES LIVES! Members of the community who have not yet received the COVID-19 vaccine and would like to receive it can visit one of [facility] vaccine clinics. There are many vaccine clinic locations within the [facility]. For locations and available times, please visit www.[email or web address].[place].gov/. It is important to note that some COVID mobile vaccine clinics are held outdoors and may be canceled in rainy or stormy conditions. To learn more about pediatric vaccinations (ages 5-11), we invite you to visit the [facility] webpage. https://www.[facility].org/pages/1050-Axjsc-Iiqzoegbypn-Gxsohgjqwi-Lmicc-Ntj stions.htmlTo learn more about the COVID-19 vaccine, we invite you to visit the CDC website for a list of frequently asked questions. https://www.cdc.gov/coronavirus/2019-ncov/vaccines/faq.html [facility] Patient Portal Access Instructions: Stay connected with your healthcare team and access your personal medical information anytime with the [facility] Patient Portal. If you would like a full copy of your medical records please contact the [facility] Medical Records Department Monday through Monday between 8a.m. and 4:30p.m. Please follow the directions below to access the portal: 1.Access the email account you provided upon registration to the [facility].2.Look for an invitation email from [facility].3.Open the email and access the invitation link: Accept Invitation to [facility]4.Fill in the required ellis to create your account. Sign into [email or web address] with your username and password that you [...] you will allow to register on the [facility] Patient Portal for access to your information. You can also access the [facility] Patient Portal on the Qustreet asher. Simply click on Health Records under [facility] and then click on the Lionseek logo. HOW TO SAFELY DISPOSE OF PRESCRIPTION [...] Call your local pharmacy or go to http://bit.Wings Intellect/3N9Tp9m to find one close to you.3.Make use of household items: Use cat litter or old coffee grounds to dispose medications if other options arenot available. Mix your drugs with these household products, seal them in an airtight container andthrow it into the garbage. Call [facility]: [phone] to be sure your drugs can be [...] been reviewed and explained to me and IBREE BRITTNEY M understand my current condition and have read and understand these discharge instructions. I have received a written copy of the plan/instructions. If I have questions, I am aware that I should contact my doctor. Patient/File Keeper Signature: Date/Time: Relationship to Patient: Witness Name/Signature: Date/Time: [facility]11-07-2023 Note ORIGINAL EXAMINATION: ONE XRAY VIEW [...] Sign Date: 04/11/2023 2:18:16 PM Ordering Provider: [employer]10-13-2023 Telephone encounter Note* Telephone Encounter - Perry Mckeon MD - 03/17/2023 4:53 PM EDT Please get a follow up with Britni scheduled [id number] Miscellaneous Notes* Telephone Encounter - Perry Mckeon [...] TABLETS IN 24 HOURS documented in this encounterSBethesda North [id number] Telephone encounter Note* Telephone Encounter - Eliana Watts - 03/17/2023 11:35 AM EDT [place]: 12/15/2022 Requested Prescriptions Pending Prescriptions Disp Refills rizatriptan (Maxalt) 10 MG tablet [Pharmacy Med Name: RIZATRIPTAN 10 MG TABLET] 9 tablet 2 Sig: take 1 tablet by mouth AT ONSET OF MIGRAINE. MAY REPEAT IN 2 HOURS. MAX 3 TABLETS IN 24 HOURS [facility] [id number] Note. MICRO - Microbiology PROCEDURE: Urine Culture [...] Locations *1: This test was performed at: [address], [address] , [facility])02-18-2023 Hospital Discharge instructions Patient Education 02/18/2023 12:38:46 [...] swelling in the outer vaginal area (labia) 2887-9339 [employer]. [address] [place] [address], [place] [address]. All rights reserved. This information is not intended as a substitute for professional medical care. Always follow yourhealthcare professional's instructions. Follow Up Care 02/18/2023 11:31:04 With:EDGAR RIZO Address: [address] [facility] [address]- Business (1) [address] [place] [address]- Business (1) When:2-4 days Comments:Return to ED if symptoms worsen With:NONE PHYSICIAN Address:Unknown When:2-4 days With:Call MARY New Pt. Refferral [phone] Address:Unknown When:2-4 days [facility] 09-16-2023 Evaluation + Plan note Diagnostic Tests Pending * Urine Culture 02/18/23 [facility] 09-16-2023 Emergency department Discharge summary Discharge Instructions Thank you for allowing [facility] to assist you with your healthcare needs. [...] Return to ED if symptoms worsen Where: [address] [place] [address]- Business (1) [address] [place] [address]- Business (1) Follow Up with NONE PHYSICIAN When Within 2-4 days Follow Up with Call MARY Copeland Pt. Refferral [phone] When Within 2-4 days Allergies Vicodin codeine [...] swelling in the outer vaginal area (labia) 9691-7337 [employer] [address] [place] [address]. All rights reserved. This information is not intended as a substitute for professional medical care. Always follow yourhealthcare professional's instructions. Additional Information VACCINATE! IT SAVES LIVES! Members of the community who have not yet received the COVID-19 vaccine and would like to receive it can visit one of [facility] vaccine clinics. There are many vaccine clinic locations within the [facility]. For locations and available times, please visit www.[email or web address].[place].gov/. It is important to note that some COVID mobile vaccine clinics are held outdoors and may be canceled in rainy or stormy conditions. To learn more about pediatric vaccinations (ages 5-11), we invite you to visit the [facility] webpage. https://www.[facility].org/pages/5771-Jyxig-Ipwqnnusjbq-Sltxwzszuf-Uhwuy-Shz stions.htmlTo learn more about the COVID-19 vaccine, we invite you to visit the CDC website for a list of frequently asked questions. https://www.cdc.gov/coronavirus/2019-ncov/vaccines/faq.html [facility] Patient Portal Access Instructions: Stay connected with your healthcare team and access your personal medical information anytime with the [facility] Patient Portal. If you would like a full copy of your medical records please contact the [facility] Medical Records Department Monday through Monday between 8a.m. and 4:30p.m. Please follow the directions below to access the portal: 1.Access the email account you provided upon registration to the hospital.2.Look for an invitation email from [facility].3.Open the email and access the invitation link: Accept Invitation to [facility]4.Fill in the required ellis to create your [...] you will allow to register on the [facility] Patient Portal for access to your information. You can also access the [facility] Patient Portal on the Qustreet asher. Simply click on Health Records under [employer] and then click on the [facility] logo. HOW TO SAFELY DISPOSE OF PRESCRIPTION [...] Call your local pharmacy or go to http://[employer].Wings Intellect/8G0En3w to find one close to you.3.Make use of household items: Use cat litter or old coffee grounds to dispose medications if other options arenot available. Mix your drugs with these household products, seal them in an airtight container andthrow it into the garbage. Call [facility]: [phone] to be sure your drugs can be [...] been reviewed and explained to me and IBREE BRITTNEY M understand my current condition and have read and understand these discharge instructions. I have received a written copy of the plan/instructions. If I have questions, I am aware that I should contact my doctor. Patient/File Keeper Signature: Date/Time: Relationship to Patient: Witness Name/Signature: Date/Time: [facility]07-17-2023 Telephone encounter Note* Telephone Encounter - ANTWAN Marsh CNP - 12/19/2022 12:26 PM EDT I sent a script for Aimovig to [facility]. Thank you Summa [id number] Miscellaneous Notes* Telephone Encounter - ANTWAN Marsh CNP - 12/19/2022 12:26 PM EDT I sent a script for Aimovig to [facility]. Thank you * Telephone Encounter - Sushma West - 12/19/2022 11:11 AM EDT Patients insurance denied the request for Ajovy. Her plan prefers her try Emgality and Aimovig prior to covering Ajovy. Please route prescription of choice to [facility]. Thank you! documented in this encounterSBethesda North HospitalSuornt94-14-8421 Telephone encounter Note* Telephone Encounter - Sushma West - 12/19/2022 11:11 AM EDT Patients insurance denied the request for Ajovy. Her plan prefers her try Emgality and Aimovig prior to covering Ajovy. Please route prescription of choice to [facility]. Thank you! [place] [id number] Hospital Discharge instructions Patient Education 12/18/2022 13:11:02 [...] grows, it spreads out in [place]. Because of how it looks, fungal skin [...] worse Foul-smelling fluid leaking from the skin [phone] [employer]. [address] [place] [address], [place] [address]. All rights reserved. This information is not intended as a substitute for professional medical care. Always follow [facility] professional's instructions. Follow Up Care 12/18/2022 12:47:17 With:PHYSICIAN, NONE Address:Unknown When:2-4 days [facility] Latif 07-16-2023 Note Discharge Instructions Thank you for allowing [facility] to assist you with your healthcare needs. The following is importantdischarge information regarding your hospital visit. Diagnosis from Today's Visit Rash What to Do Next Instructions from Your Care Team No qualifying data available. Post Acute Orders No qualifying data available. You Need to Schedule the Following Appointments Follow Up with PHYSICIAN, NONE When Within 2-4 days Allergies Vicodin codeine [...] skin products with alcohol, spices, astringents, or north fork. Avoid using other medications on the areas [...] may report side effects to FDA at 5-687-QOY-8509. What other drugs will affect ketoconazole topical? Medicine used on the skin is not likely to be affected by other drugs you use. But many drugs can interact with each other. Tell each of your healthcare providers about all medicines you use, including prescription and gqqx-sxj-evgoqew medicines, vitamins, and herbal products. Where can I get more information? Your pharmacist can provide more information about ketoconazole topical. Remember, keep this and all other medicines out of the reach of children, never share your medicines with others, and use this medication only for the indication prescribed. Every effort has been made to ensure that the information provided by [employer]. ('[employer]') is accurate, up-to-date, and complete, but no guarantee is made to that effect. Drug information contained herein may be time sensitive. [employer] information has been compiled for use by healthcare practitioners and consumers in the [place] and therefore [employer] does not warrant that uses outside of the [place] are appropriate, unless specifically indicated otherwise. [employer] drug information does not endorse drugs, diagnose patients or recommend therapy. [employer] drug information isan informational resource designed to [...] effective or appropriate for any given patient. [employer] does not assume any responsibility for any aspect of healthcare administered with the aid of information [employer] provides. The information contained herein is not intended to cover all possible uses, directions, precautions, warnings, drug interactions, allergic reactions, or adverse effects. If you have questions about the drugs you are taking, check with your doctor, nurse or pharmacist. Copyright 1932-5596 [employer]. Version: 5.02. Revision Date: 08/20/2019. Education Materials [...] grows, it spreads out in [place]. Because of how it looks, fungal skin [...] worse Foul-smelling fluid leaking from the skin 8645-9678 [employer]. [address] [place] [address]. All rights reserved. This information is not intended as a substitute for professional medical care. Always follow yourhealthcare professional's instructions. Additional Information VACCINATE! IT SAVES LIVES! Members of the community who have not yet received the COVID-19 vaccine and would like to receive it can visit one of [facility] vaccine clinics. There are many vaccine clinic locations within the [facility]. For locations and available times, please visit www.gettheshot.coronavirus.[place].gov/. It is important to note that some COVID mobile vaccine clinics are held outdoors and may be canceled in rainy or stormy conditions. To learn more about pediatric vaccinations (ages 5-11), we invite you to visit the [employer] [facility] webpage. https://www.[facility].org/pages/2820-Ommyp-Sfxsntolmdg-Vwkvinsruh-Fiwrp-Zrg stions.htmlTo learn more about the COVID-19 vaccine, we invite you to visit the CDC website for a list of frequently asked questions. https://www.cdc.gov/coronavirus/2019-ncov/vaccines/faq.html [facility] Patient Portal Access Instructions: Stay connected with your healthcare team and access your personal medical information anytime with the [facility] Patient Portal. If you would like a full copy of your medical records please contact the [facility] Medical Records Department Monday through Monday between 8a.m. and 4:30p.m. Please follow the directions below to access the portal: 1.Access the email account you provided upon registration to the [facility].2.Look for an invitation email from [facility].3.Open the email and access the invitation link: Accept Invitation to [facility]4.Fill in the required ellis to create your account. Sign into [email or web address] with your username and password that you [...] you will allow to register on the [employer] Patient Portal for access to your information. You can also access the [employer] Patient Portal on the [employer]. Simply click on Health Records under [employer] and then click on the Lionseek logo. HOW TO SAFELY DISPOSE OF PRESCRIPTION [...] Call your local pharmacy or go to http://[employer].Wings Intellect/9X3Tl4w to find one close to you.3.Make use of household items: Use cat litter or old coffee grounds to dispose medications if other options arenot available. Mix your drugs with these household products, seal them in an airtight container andthrow it into the garbage. Call [facility]: [phone] to be sure your drugs can be [...] aware that I should contact my doctor. Patient/File Keeper Signature: Date/Time: Relationship to Patient: Witness Name/Signature: Date/Time: [facility]07-13-2023 Telephone encounter Note* Telephone Encounter - Markos Gomes - 12/15/2022 5:01 PM EDT Message released to patient as written. Patient's further questions if applicable: Polina states she would like to give herself the monthly injections. Polina states she would like her script sent to: [id number] - [place], [address] Polina states she would like a call back with a status update once her scripthas been sent for awareness, because she is not due for her next injection for another month. Please contact Polina and mahad. Were all questions from office addressed or relayed to the patient from encounter: Yes [facility] [id number] Miscellaneous Notes* Telephone Encounter - Markos Gomes - 12/15/2022 5:01 PM EDT Message released to patient as written. Patient's further questions if applicable: Polina states she would like to give herself the monthly injections. Polina states she would like her script sent to: [id number] - [place], [place] - [address] [facility]. Polina states she would like a call back with a status update once her scripthas been sent for awareness, because she is not due for her next injection for another month. Please contact Polina and advise. Were all questions from office addressed or [...] Name of caller: Polina Contact phone number: [phone] Relationship to Patient: patient Provider: Megan Practice: [...] return their call: Yes documented in this [facility]07-13-2023 Telephone encounter Note* Telephone Encounter - ANTWAN Marsh CNP - 12/15/2022 3:45 PM EDT I gave Ajovy injection today. It is up to her. She can give the injections to herself monthly or make an appt to come into the office. I don't treat respiratory diseases. [facility] [id number] Telephone encounter Note* Telephone Encounter - Cynthia Muro - 12/15/2022 3:16 PM EDT Name of caller: Polina Contact phone number: [phone] Relationship to Patient: patient Provider: Megan Practice: [facility] Chief Complaint/Reason for Call: pt had her [...] business hours to return their call: Yes [facility] [id number] History of Present illness Narrative* Elizabeth Brito MA - 10/06/2022 11:15 AM EDT Patient was present for Depo Provera. Patient was given IM Injection in left glute with no blood return. Patient tolerated injection well. NDC: 3043-0749-13 LOT: [id number] EXP: 11/04/2023 documented in this encounterSBethesda North HospitalNncwdn22-19-6042 History of Present illness Narrative* Perry Mckeon MD - 10/06/2022 9:30 AM EDT Images from the original note were not included. [facility] [address] [place] [address] [facility] [address] Dept: [phone] Dept Loc: [phone] Perry Mckeon MD Thank you for your [...] Back pain, and Bipolar 2 disorder (CMS/HCC) ([facility]). Past Surgical History: has a past surgical [...] TSH VITAMIN B12: No results found for: [id number] FERRITIN: No results found for: FERRITIN ---- No results found for: PHENYTOIN, PHENOBARB, VALPROATE, CBMZ No components found for: TOPIRANo results found for: OXCARBAZE, OXCARB @LASTAPPOINTMENTTHISPROV@ XR FOOT STANDARD BILATERAL Narrative: Patient Name: POLINA GIRON Diagnostic Radiology ACCESSION EXAM DATE/TIME PROCEDURE ORDERING PROVIDER [id number] 09/16/2021 13:27 EDT CR Foot Complete 3+ SOPHIE GERMAN Views Bilateral CPT code 73525 Reason For Exam (CR Foot Complete 3+ [...] ADELE, IMMUNOGLOBUL, OLIGOBANDS No results found for: DBR76LZ, HEPCAB No results found for: CRP, ANATITER, [...] and arranging for studies. documented in this [facility]05-04-2023 Telephone encounter Note* Telephone Encounter - Isabella De Santiago LPN - 10/06/2022 8:36 AM EDT pt returning call. Office called to change depo appt location Appt moved [facility] [id number] Miscellaneous Notes* Telephone Encounter - Isabella De Santiago LPN - 10/06/2022 8:36 AM EDT pt returning call. Office called to change depo appt location Appt moved documented in this [facility]11-10-2022 Evaluation + Plan note Diagnostic Tests Pending * Urine Culture 04/14/22 Future Scheduled Tests Radiology* XR Hand Minimum 3 Views Right 07/08/21 [facility] 11-10-2022 Hospital Discharge instructions Patient Education [...] breath Increased wheezing or shortness of breath [phone] [employer] [address] [place] [address]. All rights reserved. This information is not [...] If needed, more treatment may be started. 7351-2901 [employer] [address] [place] [address], [place] [address]. All rights reserved. This information is not intended as a substitute for professional medical care. Always follow yourhealthcare professional's instructions. Follow Up Care 04/14/2022 09:35:16 With:Call MARY Copeland [facility]. [facility] [phone] Address:Unknown When:2-4 days [facility] 11-10-2022 Note Discharge Instructions Thank you for allowing [facility] to assist you with your healthcare needs. The following is importantdischarge information regarding your hospital visit. Diagnosis from Today's Visit Cough Wheeze UTI - Urinary tract infection Vomiting What to Do Next Instructions from Your Care Team No qualifying data available. Post Acute Orders No qualifying data available. You Need to Schedule the Following Appointments Follow Up with Call MARY Copeland Pt. Refferral [phone] When Within 2-4 days Allergies Vicodin codeine [...] or retail pharmacies. Medication Leaflets prednisone (PRED rupret sone) Angel What is the most important [...] may report side effects to FDA at 9-256-ECO-4854. What other drugs will affect prednisone? Sometimes [...] may affect prednisone. This includes prescription and zgtu-psf-mflzwmo medicines, vitamins, and herbal products. Not all [...] to ensure that the information provided by [employer]. [employer]') is accurate, up-to-date, and complete, but no guarantee is made to that effect. Drug information contained herein may be time sensitive. [employer] information has been compiled for use by healthcare practitioners and consumers in the [place] and therefore [employer] does not warrant that uses outside of the [place] are appropriate, unless specifically indicated otherwise. [employer] drug information does not endorse drugs, diagnose patients or recommend therapy. [employer] drug information isan informational resource designed to [...] effective or appropriate for any given patient. [employer] does not assume any responsibility for any aspect of healthcare administered with the aid of information [employer] provides. The information contained herein is not intended to cover all possible uses, directions, precautions, warnings, drug interactions, allergic reactions, or adverse effects. If you have questions about the drugs you are taking, check with your doctor, nurse or pharmacist. Copyright 5408-3115 [employer]. Version: 10. Revision Date: 08/30/2018. cephalexin (sef a CJ [...] may report side effects to FDA at 6-836-USB-6177. What other drugs will affect cephalexin? Tell your doctor about all your other medicines, especially: metformin; or probenecid. This list is not complete. Other drugs may affect cephalexin, including prescription and idqc-erv-sgwuloj medicines, vitamins, and herbal products. Not all [...] to ensure that the information provided by [employer]. [employer]') is accurate, up-to-date, and complete, but no guarantee is made to that effect. Drug information contained herein may be time sensitive. [employer] information has been compiled for use by healthcare practitioners and consumers in the [place] and therefore [employer] does not warrant that uses outside of the [place] are appropriate, unless specifically indicated otherwise. [employer] drug information does not endorse drugs, diagnose patients or recommend therapy. Take5 drug information isan informational resource designed to [...] effective or appropriate for any given patient. [employer] does not assume any responsibility for any aspect of healthcare administered with the aid of information [employer] provides. The information contained herein is not intended to cover all possible uses, directions, precautions, warnings, drug interactions, allergic reactions, or adverse effects. If you have questions about the drugs you are taking, check with your doctor, nurse or pharmacist. Copyright 3081-8152 [employer]. Version: 10.. Revision Date: 06/08/2020. prochlorperazine (oral/injection) (pro klor [...] What is prochlorperazine? Prochlorperazine is a phenothiazine (RSTZ-bt-HQYE-a-zeen) antipsychotic medicine that is used to treat [...] how this medicine will affect you. This medicine may cause dizziness or blurred vision and may [...] may report side effects to FDA at 8-354-ENC-8156. What other drugs will affect prochlorperazine? Using [...] may affect prochlorperazine. This includes prescription and etst-hly-sfxmowp medicines, vitamins, and herbal products. Not all [...] to ensure that the information provided by [employer]. ('[employer]') is accurate, up-to-date, and complete, but no guarantee is made to that effect. Drug information contained herein may be time sensitive. [employer] information has been compiled for use by healthcare practitioners and consumers in the [place] and therefore [employer] does not warrant that uses outside of the [place] are appropriate, unless specifically indicated otherwise. [employer] drug information does not endorse drugs, diagnose patients or recommend therapy. Take5 drug information isan informational resource designed to [...] effective or appropriate for any given patient. [employer] does not assume any responsibility for any aspect of healthcare administered with the aid of information [employer] provides. The information contained herein is not intended to cover all possible uses, directions, precautions, warnings, drug interactions, allergic reactions, or adverse effects. If you have questions about the drugs you are taking, check with your doctor, nurse or pharmacist. Copyright 5998-4865 [employer]. Version: 12.. Revision Date: 09/27/2019. albuterol inhalation [...] may report side effects to FDA at 1-025-JAS-6927. What other drugs will affect albuterol inhalation? [...] may affect albuterol inhalation, including prescription and vhtb-gtr-owryhmc medicines, vitamins, and herbal products. Not all [...] to ensure that the information provided by [employer]. ('[employer]') is accurate, up-to-date, and complete, but no guarantee is made to that effect. Drug information contained herein may be time sensitive. [employer] information has been compiled for use by healthcare practitioners and consumers in the [place] and therefore [employer] does not warrant that uses outside of the [place] are appropriate, unless specifically indicated otherwise. [employer] drug information does not endorse drugs, diagnose patients or recommend therapy. [employer] drug information isan informational resource designed to [...] effective or appropriate for any given patient. [employer] does not assume any responsibility for any aspect of healthcare administered with the aid of information [employer] provides. The information contained herein is not intended to cover all possible uses, directions, precautions, warnings, drug interactions, allergic reactions, or adverse effects. If you have questions about the drugs you are taking, check with your doctor, nurse or pharmacist. Copyright 7155-2687 [employer]. Version: 10.. Revision Date: 04/22/2020. Education Materials Bronchospasm (Adult) [...] (influenza vaccine). When to seek medical advice [facility]22 Note ORIGINAL EXAMINATION: ONE XRAY VIEW [...] Date: 04/14/2022 10:45:23 AM Ordering Provider: AUBREY [facility]11-10-2022 Note ORIGINAL EXAMINATION: ONE XRAY VIEW [...] Date: 04/14/2022 10:45:23 AM Ordering Provider: AUBREY [facility]08-10-2022 Hospital Discharge instructions Patient Education 01/12/2022 21:42:05 [...] information Smokefree.gov. Go to smokefree.gov or call 277-HDEF-NYD (427-428-7893). National Cancer [place] Smoking Quitline. Go to [employer]/glh-wwxp-tul or call 605-33S-VPRD([phone]). 7936-[address] [employer] [place] [address]. All rights reserved. This information is not intended as a substitute for professional medical care. Always follow [facility] professional's instructions. 01/12/2022 21:41:51 Acute Sinusitis Acute [...] is gone, even if you feel better. 4811-5001 [employer]. [address] [place] [address]. All rights reserved. This information is not intended as a substitute for professional medical care. Always follow yourhealthcare professional's instructions. Follow Up Care 01/12/2022 21:34:31 With:EDGAR RIZO MD Address: [address] [place] [address]- When:2-4 days With:Call Physician Referral Address:Unknown When:2-4 days [facility] 08-10-2022 Note Discharge Instructions Thank you for allowing [facility] to assist you with your healthcare needs. [...] RIZO MD When Within 2-4 days Where: [place] [address]- Follow Up with Call Physician Referral When [...] information Smokefree.gov. Go to smokefree.gov or call 667-SSBH-RZU (806-711-6133). National Cancer [place] Smoking Quitline. Go to [employer]/gis-ggcj-wza or call 165-12M-OAGE([phone]). 6244-3615 [employer]. [address] [place] [address]. All rights reserved. This information is not [...] is gone, even if you feel better. [phone] [employer]. [address] [place] [address]. All rights reserved. This information is not intended as a substitute for professional medical care. Always follow yourhealthcare professional's instructions. Additional Information VACCINATE! IT SAVES LIVES! Members of the community who have not yet received the COVID-19 vaccine and would like to receive it can visit one of [facility] vaccine clinics. There are many vaccine clinic locations within the [facility]. For locations and available times, please visit [email or web address]. It is important to note that some COVID mobile vaccine clinics are held outdoors and may be canceled in rainy orstormy conditions. To learn more about pediatric vaccinations (ages 5-11), we invite you to visit the [facility] webpage. https://www.[email or web address].org/pages/3527-Tiaip-Igxdoxdfzeg-Gmuhmrufee-Tzkgf-Erc stions.htmlTo learn more about the COVID-19 vaccine, we invite you to visit the [facility] website for a list of frequently asked questions. [email or web address] [email or web address]/Ybpawrja-aoh-Tzvukfig/kkswg-Nvsoium-Snrgcylbgf _Asked-Questions.pdf [facility] Patient Portal Access Instructions: Stay connected with your healthcare team and access your personal medical information anytime with the [facility] Patient Portal. If you would like a full copy of your medical records please contact the [facility] Medical Records Department Monday through Monday between 8a.m. and 4:30p.m. Please follow the directions below to access the portal: 1.Access the email account you provided upon registration to the [facility].2.Look for an invitation email from [facility].3.Open the email and access the invitation link: Accept Invitation to [employer]4.Fill in the required ellis to create your account. Sign into [email or web address] with your username and password that you [...] you will allow to register on the [employer] Patient Portal for access to your information. You can also access the [employer] Patient Portal on the [employer]. Simply click on Health Records under [employer] and then click on the Lionseek logo. HOW TO SAFELY DISPOSE OF PRESCRIPTION [...] Call your local pharmacy or go to http://[employer].Wings Intellect/3M6Pp5a to find one close to you.3.Make use of household items: Use cat litter or old coffee grounds to dispose medications if other options arenot available. Mix your drugs with these household products, seal them in an airtight container andthrow it into the garbage. Call [facility]: [phone] to be sure your drugs can be [...] and explained to me and I,POLINA GIRON understand my current condition and have read and understand these discharge instructions. I have received a written copy of the plan/instructions. If I have questions, I am aware that I should contact my doctor. Patient/File Keeper Signature: Date/Time: Relationship to Patient: Witness Name/Signature: Date/Time: [facility]07-28-2022 Hospital Discharge instructions Patient Education 12/30/2021 [...] with soap and water or use alcohol-based therapeutic riding instructor to prevent the spread of infection. Wash your hands after touching anyone who is sick. Wash your hands or use alcohol-based therapeutic riding instructor after using the toilet and before meals. [...] Keep uncooked meats away from cooked and zduqu-fv-sgt foods. Medicine You may use acetaminophen or [...] directed by your healthcare provider Min dietz [phone] [employer]. [address] [place] [address], [place] [address]. All rights reserved. This information is not intended as a substitute for professional medical care. Always follow yourhealthcare professional's instructions. Follow Up Care 12/30/2021 00:34:03 With:Follow up with primary care provider Address:Unknown When:2-4 days [facility] 07-28-2022 Note Discharge Instructions Thank you for allowing [facility] to assist you with your healthcare needs. [...] with soap and water or use alcohol-based therapeutic riding instructor to prevent the spread of infection. Wash your hands after touching anyone who is sick. Wash your hands or use alcohol-based therapeutic riding instructor after using the toilet and before meals. [...] Keep uncooked meats away from cooked and eidyh-oo-nwe foods. Medicine You may use acetaminophen or [...] directed by your healthcare provider Min dietz [phone] [employer]. [address] [place] [address], [place] [address]. All rights reserved. This information is not intended as a substitute for professional medical care. Always follow yourhealthcare professional's instructions. Additional Information VACCINATE! IT SAVES LIVES! Members of the community who have not yet received the COVID-19 vaccine and would like to receive it can visit one of [facility] vaccine clinics. There are many vaccine clinic locations within the [facility]. For locations and available times, please visit [email or web address]. It is important to note that some COVID mobile vaccine clinics are held outdoors and may be canceled in rainy orstormy conditions. To learn more about pediatric vaccinations (ages 5-11), we invite you to visit the [facility] webpage. https://www.akGeoli.st [email or web address].org/pages/4101-Dkrsh-Idmihdgmhtg-Lewzsqicoz-Xtait-Nsd stions.htmlTo learn more about the COVID-19 vaccine, we invite you to visit the [facility] website for a list of frequently asked questions. [email or web address]-[email or web address]-[email or web address]/[email or web address]-Blcxxuk-[email or web address] _Asked-Questions.pdf [facility] [employer] Patient Portal Access Instructions: Stay connected with your healthcare team and access your personal medical information anytime with the [employer] Patient Portal. If you would like a full copy of your medical records please contact the [facility] Medical Records Department Monday through Monday between 8a.m. and 4:30p.m. Please follow the directions below to access the portal: 1.Access the email account you provided upon registration to the [facility].2.Look for an invitation email from [facility].3.Open the email and access the invitation link: Accept Invitation to [employer]4.Fill in the required ellis to create your account. Sign into [email or web address] with your username and password that you [...] you will allow to register on the [employer] Patient Portal for access to your information. You can also access the [employer] Patient Portal on the Qustreet asher. Simply click on Health Records under [employer] and then click on the Lionseek logo. HOW TO SAFELY DISPOSE OF PRESCRIPTION [...] Call your local pharmacy or go to http://[employer].Wings Intellect/2H7Bm9r to find one close to you.3.Make use of household items: Use cat litter or old coffee grounds to dispose medications if other options arenot available. Mix your drugs with these household products, seal them in an airtight container andthrow it into the garbage. Call [facility]: [phone] to be sure your drugs can be [...] aware that I should contact my doctor. Patient/File Keeper Signature: Date/Time: Relationship to Patient: Witness Name/Signature: Date/Time: [facility]07[facility]2022 Note Discharge Instructions Thank you for allowing [facility] to assist you with your healthcare needs. [...] MISCellaneous) TENS UNIT Chronic neck pain SA MANPREET TENS UNIT E0730 REDUCING CHRONIC INTRACTABLE PAIN, [...] with soap and water or use alcohol-based therapeutic riding instructor to prevent the spread of infection. Wash your hands after touching anyone who is sick. Wash your hands or use alcohol-based therapeutic riding instructor after using the toilet and before meals. [...] Keep uncooked meats away from cooked and otzeg-uh-hni foods. Medicine You may use acetaminophen or [...] directed by your healthcare provider Min dietz [phone] [employer]. [address] [place] [address], [place] [address]. All rights reserved. This information is not intended as a substitute for professional medical care. Always follow yourhealthcare professional's instructions. Additional Information VACCINATE! IT SAVES LIVES! Members of the community who have not yet received the COVID-19 vaccine and would like to receive it can visit one of [facility] vaccine clinics. There are many vaccine clinic locations within the [facility]. For locations and available times, please visit www.[email or web address]. It is important to note that some COVID mobile vaccine clinics are held outdoors and may be canceled in rainy orstormy conditions. To learn more about pediatric vaccinations (ages 5-11), we invite you to visit the [facility] webpage. https://www.[email or web address]/pages/6259-Onhyw-Mpbocyjegfg-Prgamdkwbx-Hjvsz-Vzm stions.htmlTo learn more about the COVID-19 vaccine, we invite you to visit the [facility] website for a list of frequently asked questions. [email or web address]://[email or web address]/Nhaebaab-jiy-Rblizwbs/vzlgf-Bmfctwv-Mpdqiyekbg _Asked-Questions.pdf [facility] Patient Portal Access Instructions: Stay connected with your healthcare team and access your personal medical information anytime with the [facility] Patient Portal. If you would like a full copy of your medical records please contact the [facility] Medical Records Department Monday through Monday between 8a.m. and 4:30p.m. Please follow the directions below to access the portal: 1.Access the email account you provided upon registration to the hospital.2.Look for an invitation email from [facility].3.Open the email and access the invitation link: Accept Invitation to [employer]4.Fill in the required ellis to create your [...] you will allow to register on the [facility] [employer] Patient Portal for access to your information. You can also access the [facility] Patient Portal on the [employer]oTec. Simply click on Health Records under [employer] and then click on the Mirna logo. [...] Call your local pharmacy or go to http://[employer].Wings Intellect/1D6Zl4k to find one close to you.3.Make use of household items: Use cat litter or old coffee grounds to dispose medications if other options arenot available. Mix your drugs with these household products, seal them in an airtight container andthrow it into the garbage. Call [facility]: [phone] to be sure your drugs can be [...] aware that I should contact my doctor. Patient/File Keeper Signature: Date/Time: Relationship to Patient: Witness Name/Signature: Date/Time: [facility]02-18-2022 Evaluation + Plan note Diagnostic Tests Pending * Vitamin B12 Level 07/23/21 * Antinuclear Antibody Screen, Serum 07/23/21 * Rheumatoid Factor 07/23/21 Future Scheduled Tests Radiology* XR Hand Minimum 3 Views Right 07/08/21 * XR Spine Lumbar AP/LAT 11/18/20 [facility] 02-03-2022 Evaluation + Plan note Future Scheduled Tests Radiology* XR Hand Minimum 3 Views Right 07/08/21 [facility] 02-25-2021 NoteHNO ID: [id number] Author: Ar Lima Service: ? Author Type: [...] CONSULT TO ENT - established patient with [facility], facilitated appointment this afternoon. 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 Appointment Date:06/21/2021 10:35:00 AM Scheduled Provider:BEBA HUMPHREYS DO Location:[facility] Appointment Type: OV Future Scheduled Tests Laboratory* C-Reactive Protein 11/11/20 * Stool for Occult Blood (Lab) 07/20/20 * Thyroid Stimulating Hormone 11/11/20 * Vitamin B12 Level 11/11/20 * Complete Blood Count 07/20/20 * Lamotrigine Level 07/20/20 * Urine test (LAB) 05/01/20 * Vitamin D Level 11/11/20 * Complete Metabolic Panel 07/20/20 Radiology* XR Spine Lumbar AP/LAT 11/18/20 [facility] Evaluation note* Diagnosis Right-sided temporomandibular joint pain-dysfunction syndrome- Primary [facility] Work Phone: Evaluation note* Diagnosis Intractable chronic migraine without aura and without status migrainosus- Primary Medication overuse headache Drug induced headache, not elsewhere classified documented in this encounter [facility] HealthEvaluation noteNo assessment information availableWAshtabula [facility] Hospital Work Phone: Evaluation note* Diagnosis Intractable chronic migraine without aura and without status migrainosus- Primary [facility] Diagnosis Intractable chronic migraine without aura and without status migrainosus [facility]* Diagnosis Intractable chronic migraine without aura and without status migrainosus- Primary [facility]* Diagnosis Encounter for surveillance of injectable contraceptive [facility]* Diagnosis Intractable chronic migraine without aura and without status migrainosus- Primary [facility]* Diagnosis Encounter for surveillance of contraceptive pills [facility]* Diagnosis Encounter for surveillance of contraceptive pills Cervical cancer screening Screening for malignant neoplasm of the cervix Well woman exam with routine gynecological exam Routine gynecological examination documented [facility]* Diagnosis Well woman exam with routine gynecological exam- Primary Routine gynecological examination Dysuria Cervical cancer screening Screening for malignant neoplasm of the cervix Vaginal itching Pruritus of genital organs Stress incontinence of urine [facility]* Diagnosis Encounter for surveillance of contraceptive pills [facility]* Diagnosis Intractable chronic migraine without aura and without status migrainosus- Primary [facility]* Diagnosis Intractable chronic migraine without aura and without status migrainosus- Primary [facility]* Diagnosis Weight gain- Primary Other symptoms concerning nutrition, metabolism, and development Encounter for initial prescription of contraceptive pills documented in this encounter [facility]Evaluation note* Diagnosis Intractable chronic migraine without aura and without status migrainosus- Primary documented in this encounter [facility] note* Diagnosis Oropharyngeal candidiasis- Primary Candidiasis of mouth Laryngopharyngeal reflux (LPR) Oral thrush Candidiasis of mouth Throat discomfort Throat pain Throat clearing Other symptoms involving head and neck documented in this encounter [facility] Work Phone: Hospital course Narrative No data available for this section [facility] Discharge instructions No data available for this section [facility] Discharge instructions* Attachments The following attachments cannot be sent through Care Everywhere. * TMD (Temporomandibular Disorder) (Khmer) documented in this [facility] Work Phone: Hospital Discharge instructions Additional Instructions Strep negative. Throat culture pending. Wet prep negative GC chlamydia pending. Finish steroids as prescribed. Follow-up with Dr. Villarreal. You will be contacted if any cultures are positive.[facility] Work Phone: Reason for referral (narrative)No reason for referral information availableWAshtabula General Hospital Work Phone: Summary Purpose Family History No [...] May 10:46am Living Will No May 22 020 10:23pm Power of Skiff Operator No May 22, 2020 10:23pm Advance Directive Response Recorded Date/ Time Advance Directives No December 20 10:27am Advance Directive Response Recorded Date/ Time Do you have a Healthcare Power of Skiff Operator? No October 23, 2024 1:56pm Advance Directives No December 20 10:27am Reason for Referral Specialty Diagnoses / Procedures Referred By Ariadna ramirez Referred To Contact Physical Therapy Diagnoses Stress incontinence of urine Procedures [place] OFFICE/OUTPATIENT NEW [facility]IGH [facility] 60 MINUTES Valeri Kwok MD [address] [place] [address] [facility] [address] [place] [address] Referral ID Status Reason Start Date Expiration Date Visits Requested Visits Authorized [id number] Pending Review Eval and Treat 12/13/2023 12/07/2024 99 99 Specialty Diagnoses / Procedures Referred By Ariadna ramirez Referred To Contact Diagnoses Intractable chronic migraine without aura and without status migrainosus Megan Mason, PATIENT ACCESS - [facility] [address] [place] [address] Referral ID Status Reason Start Date Expiration Date V isits Requested Visits Authorized [id number] Pending Review 06/21/2023 06/15/2024 1 1 Specialty Diagnoses / Procedures Referred By Contac t Referred To Contact Radiology Diagnoses Intractable chronic migraine without aura and without status migrainosus Procedures MR brain w and wo contrast Megan Mason APRN - [facility] [address] [place] [address] Referral ID Status Reason Start Date Expiration Date V isits Requested Visits Authorized [id number] Authorized 05/11/2023 05/10/2024 1 1 Specialty Diagnoses / Procedures Referred By Contac t Referred To Contact Megan Mason APRN - [facility] [address] [place] [address] Referral ID Status Reason Start Date Expiration Date V isits Requested Visits Authorized [id number] Pending Review 1 1 Chief Complaint and [...] am Diarrhea October 24, 2024 10:17 am Chief Complaint Admit Date Back pain with lump August 19, 2024 4:5 0pm THROAT PAIN October 03, 2024 4:16pm female c/o October 23, 2024 12:55 pm Nausea October 24, 2024 10:17 am NEEDS ORDER October 24, 2024 11:36 am LUMBAR PAIN November 02, 2024 7:58a m DR QUIJANO ORDER ONLY November 08, 2024 11: 24am Chief Complaint Admit Date Back pain with lump August 19, 2024 4:5 0pm THROAT PAIN October 03, 2024 4:16pm female c/o October 23, 2024 12:55 pm Nausea October 24, 2024 10:17 am NEEDS ORDER October 24, 2024 11:36 am LUMBAR PAIN November 02, 2024 7:58a m Chief Complaint Admit Date Back pain with lump August 19, 2024 4:5 0pm THROAT PAIN October 03, 2024 4:16pm female c/o October 23, 2024 12:55 pm Nausea October 24, 2024 10:17 am NEEDS ORDER October 24, 2024 11:36 am LUMBAR PAIN November 02, 2024 7:58a m DR QUIJANO ORDER ONLY November 08, 2024 11: 24am ABD PAIN November 15, 2024 9:36 am Chief Complaint Admit Date Back pain with lump August 19, 2024 4:5 0pm THROAT PAIN October 03, 2024 4:16pm female c/o October 23, 2024 12:55 pm Nausea October 24, 2024 10:17 am NEEDS ORDER October 24, 2024 11:36 am LUMBAR PAIN November 02, 2024 7:58a m DR QUIJANO ORDER ONLY November 08, 2024 11: 24am ABD PAIN November 15, 2024 9:36 am ABDOMINAL PAIN November 26, 2024 2:37 pm Additional Source Comments INFORMATION SOURCE (unrecogn ized section and content) DATE CREATED AUTHOR 09/14/2018 [facility] DATE CREATED AUTHOR AUTHOR'S ORGANIZ ATION 01/14/2019 [facility] DATE CREATED AUTHOR AUTHOR'S ORGANIZ ATION 05/15/2020 [employer] DATE CREATED AUTHOR AUTHOR'S ORGANIZ ATION 12/23/2020 [facility] DATE CREATED AUTHOR AUTHOR'S ORGANIZ ATION 06/21/2021 [facility] DATE CREATED AUTHOR AUTHOR'S ORGANIZ ATION 10/14/[address] [facility] DATE CREATED AUTHOR AUTHOR'S ORGANIZ ATION 04/20/2023 [facility] ([place]) DATE CREATED AUTHOR AUTHOR'S ORGANIZ ATION 12/12/2024 [facility] DATE CREATED AUTHOR AUTHOR'S ORGANIZ ATION 12/15/2024 [facility] DATE CREATED AUTHOR AUTHOR'S ORGANDEBBIE ATION 12/15/2024 [facility] Reason for Visit (unrecogniz ed section and content) Reason Comments Procedure Botulinum Toxin Injection Specialty Diagnoses / Procedures Referred By Contac t Referred To Contact Diagnoses Intractable chronic migraine without aura and without status migrainosus Megan Mason, ANTWAN - [facility] [address] [place] [address] Phone: tel: fax: Referral ID Status Reason Start Date Expiration Date Visits Re quested Visits Authorized [id number] Closed 05/23/2024 05/18/2025 1 1 Reason Comments Procedure Specialty Diagnoses / Procedures Referred By Contac t Referred To Contact Diagnoses Intractable chronic migraine without aura and without status migrainosus Megan Mason APRN - [facility] [address] [place] [address] Referral ID Status Reason Start Date Expiration Date V isits Requested Visits Authorized [id number] Pending Review 02/28/2024 02/22/2025 1 1 Reason Comments Facial Swelling Reason Onset Date Comments pt returning call. Office ca lled to change depo appt locatio 10/06/2022 pt returning call. Office ca lled to change depo appt location Reason Comments New Patient Headache Specialty Diagnoses / Procedures Referred By Contac t Referred To Contact Neurology Diagnoses Other migraine, not intractable, without status migrainosus Procedures [place] OFFICE/OUTPATIENT NEW MODERATE MDM 45-59 MINUTES [address] [place] [address] Perry Mckeon MD [address] [place] [address] Referral ID Status Reason Start Date Expiration Date V isits Requested Visits Authorized [id number] Pending Review 08/25/2022 08/26/2023 1 1 Reason Onset Date Comments Advice Only 12/19/2022 Reason Comments Med Refill Reason Comments Follow-up Headache Specialty Diagnoses / Procedures Referred By Contac t Referred To Contact Radiology Diagnoses Intractable chronic migraine without aura and without status migrainosus Procedures MR brain w and wo contrast Megan Mason, PATIENT ACCESS - [facility] [address] [place] [address] Referral ID Status Reason Start Date Expiration Date Visits Re quested Visits Authorized [id number] Closed 05/11/2023 05/10/2024 1 1 Referral ID Status Reason Start Date Expiration Date V isits Requested Visits Authorized [id number] Pending Review 06/21/2023 06/15/2024 1 1 Reason [...] Expiration Date V isits Requested Visits Authorized [id number] Pending Review 10/31/2023 10/25/2024 1 1 Reason [...] Expiration Date Visits Re quested Visits Authorized [id number] Closed 08/15/2024 08/10/2025 1 1 Reason Onset Date Comments Medication Reaction 09/04/2024 Reason Onset Date Comments Medication Problem 09/23/2024 Reason Onset Date Comments Medication Problem 10/16/2024 Reason Onset Date Comments Medication Problem 10/16/2024 Patient state s the Slynd is not covered and wants to know if she get get another medication prescribed. She states she wants to continue not having periods and doesn't want it to cause weight gain. Please call and advise. Thank you. Reason Comments Contraception Discuss alternative BCPreviously on depo, last injection in AugustPatient noticing weight gain No periods with depo,Denies pelvic pain Reason Comments Follow-up Migraine Reason Comments Mouth Lesions Lesion back of Throa t Reason Onset Date Comments Med Management 12/11/2024 Qul[employer]a update Scheduled Active and Recently Administ ered Medications (unrecognized section and content) Medication Order 10/10/2021 10/11/2021 10/12/2021 acetaminophen (TYLENOL) tablet 1,000 mg (COMPLETED) 1,000 mg, Oral, ONCE, 1 dose, On Mon10/12/21 at 2057, Maximum dose of acetaminophen is 4000 mg from all sources in 24 hours. 2104 (Given - Provid er: Yadira Linder RN) Care Teams (unrecognized sec tion and content) Marketing Manager Health Communications Relationship Specialty Start Date End Date Son Delarosa MD PCP - General 09/22/18 Marketing Manager Health Communications Relationship Specialty Start Date End Date Beba Humphreys DO [address] [place] [address] PCP - General 06/12/21 Marketing Manager Health Communications Relationship Specialty Start Date End Date Beba Humphreys DO [address] [place] [address] PCP - General 06/12/21 Marketing Manager Health Communications Relationship Specialty Start Date End Date [facility] [address] [place] [address] PCP - General 11/11/22 Marketing Manager Health Communications Relationship Specialty Start Date End Date [facility] [address] [place] [address] PCP - General 11/11/22 Team Status: Active Member Role Status Dates No Primary Care Physician Primary Care Provider Active Team Status: Inactive Member Role Status Dates Dr. Ar Villarrael MD Attending Provider, Referring Pr ovider Active No Primary Care Physician Primary Care Provider Active Marketing Manager Health Communications Relationship Specialty Start Date End Date [facility] [address] [facility] [place] [address] PCP - General 11/11/22 Marketing Manager Health Communications Relationship Specialty Start Date End Date [facility] [address] [place] [address] PCP - General 11/11/22 Marketing Manager Health Communications Relationship Specialty Start Date End Date [facility], [facility] [address] [place] [address] PCP - General 11/11/22 Marketing Manager Health Communications Relationship Specialty Start Date End Date [facility], [facility] [address] [facility] [place] [address] PCP - General 11/11/22 Marketing Manager Health Communications Relationship Specialty Start Date End Date [facility], [facility] [address] [place] [facility] [place] [address] PCP - General 11/11/22 Marketing Manager Health Communications Relationship Specialty Start Date End Date Beba Humphreys DO [address] [place] [address] PCP - General 06/12/21 11/10/22 [facility] [address] [place] [address] PCP - General 11/11/22 Marketing Manager Health Communications Relationship Specialty Start Date End Date [facility] [address] [facility] [place] [address] PCP - General 11/11/22 Marketing Manager Health Communications Relationship Specialty Start Date End Date [facility] [address] [facility] [place] [address] PCP - General 11/11/22 Team Status: Active Member Role Status Dates Nataliya Gomez MD Primary Care Provider Active Team Status: Inactive Member Role Status Dates Nataliya Gomez MD Primary Care Provide r, Attending Provider, Referring Provider Active Marketing Manager Health Communications Relationship Specialty Start Date End Date [facility], [facility] [address] [facility] [address] [place] [address] PCP - General 11/11/22 Marketing Manager Health Communications Relationship Specialty Start Date End Date [facility], [facility] [address] [facility] [place] [address] PCP - General 11/11/22 Marketing Manager Health Communications Relationship Specialty Start Date End Date Natlaiya Gomez MD [address] [place] [address] [address] [place] [address] PCP - General Family Medicine 10/31/23 Marketing Manager Health Communications Relationship Specialty Start Date End Date Nataliya Gomez MD [address] [place] [address] [address] [place] [address] PCP - General Family Medicine 10/31/23 Marketing Manager Health Communications Relationship Specialty Start Date End Date Nataliya Gomez MD [address] [facility] [address] [place] [address] PCP - General Family Medicine 10/31/23 Marketing Manager Health Communications Relationship Specialty Start Date End Date Nataliya Gomez MD [address] [place] [address] [address] [place] [address] PCP - General Family Medicine 10/31/23 Marketing Manager Health Communications Relationship Specialty Start Date End Date Nataliya Gomez MD [address] [place] [address] [address] [place] [address] PCP - General Family Medicine 10/31/23 Marketing Manager Health Communications Relationship Specialty Start Date End Date Nataliya Gomez MD [address] [place] [address] [address] [place] [address] PCP - General Family Medicine 10/31/23 Marketing Manager Health Communications Relationship Specialty Start Date End Date Nataliya Gomez MD [address] [facility] [address] [place] [address] PCP - General Family Medicine 10/31/23 Team Status: Inactive Member Role Status Dates Nataliya Gomez MD Primary Care Provider Active St art: August 19, 2024 End: August 19, 2024 Nataliya Gomze MD Attending Provider Active Start : August 19, 2024 End: August 19, 2024 Nataliya Gomez MD Referring Provider Active Start : August 19, 2024 End: August 19, 2024 Marketing Manager Health Communications Relationship Specialty Start Date End Date Nataliya Gomez MD [address] [place] [address] [address] [place] [address] PCP - General Family Medicine 10/31/23 Marketing Manager Health Communications Relationship Specialty Start Date End Date Nataliya Gomez MD [address] [place] [address] [address] [place] [address] PCP - General Family Medicine 10/31/23 Marketing Manager Health Communications Relationship Specialty Start Date End Date Nataliya Gomez MD [address] [place] [address] [address] [place] [address] PCP - General Family Medicine 10/31/23 Marketing Manager Health Communications Relationship Specialty Start Date End Date Nataliya Gomez MD [address] [place] [address] [address] [place] [address] PCP - General Family Medicine 10/31/23 Marketing Manager Health Communications Relationship Specialty Start Date End Date Nataliya Gomez MD [address] [place] [address] [address] [place] [address] PCP - General Family Medicine 10/31/23 Marketing Manager Health Communications Relationship Specialty Start Date End Date Nataliya Gomez MD [address] [place] [address] [address] [place] [address] PCP - General Family Medicine 10/31/23 Marketing Manager Health Communications Relationship Specialty Start Date End Date Nataliya Gomez MD [address] [place] [address] [address] [place] [address] PCP - General Family Medicine 10/31/23 Team [...] October 24, 2024 End: October 24, 2024 Natlaiya Gomez MD Referring Provider Active Start : [...] October 24, 2024 End: October 24, 2024 Marketing Manager Health Communications Relationship Specialty Start Date End Date Nataliya Gomez MD [address] [facility] [address] [place] [address] PCP - General Family Medicine 10/31/23 Team Status: Inactive Member Role Status Sandra Gomez MD Primary Care Provider Active St art: October 23, 2024 End: October 23, 2024 Dr. Humphrey Andrew DO Attending Provider Active Start : October 23, 2024 End: October 23, 2024 Dr. Humphrey Andrew DO Emergency Provider Active Start : October 23, 2024 End: October 23, 2024 Team Status: Inactive Member Role Status Sandra Gomez MD Primary Care Provider Active St art: November 02, 2024 End: November 02, 2024 Nataliya Gomez MD Attending Provider Active Start : November 02, 2024 End: November 02, 2024 Nataliya Gomez MD Referring Provider Active Start : November 02, 2024 End: November 02, 2024 Team Status: Inactive Member Role Status Sandra Gomez MD Primary Care Provider Active St art: November 08, 2024 End: November 08, 2024 Dr. Moses Montalvo DO Attending Provider Active Start: November 08, 2024 End: November 08, 2024 Dr. Moses Montalvo DO Referring Provider Active Start: November 08, 2024 End: November 08, 2024 Marketing Manager Health Communications Relationship Specialty Start Date End Date Nataliya Gomez MD [address] [place] [address] PCP - General Family Medicine 11/01/24 Team Status: Inactive Member Role Status Sandra Gomez MD Primary Care Provider Active St art: November 15, 2024 End: November 15, 2024 Dr. Moses Montalvo DO Attending Provider Active Start: November 15, 2024 End: November 15, 2024 Dr. Moses Montalvo DO Referring Provider Active Start: November 15, 2024 End: November 15, 2024 Team Status: Active Member Role/Relationship Status Sandra Gomez MD Primary Care Provider Active Team Status: Inactive Member Role/Relationship Status Sandra Gomez MD Primary Care Provider Active St art: August 19, 2024 End: August 19, 2024 Nataliya Gomez MD Attending Provider Active Start : August 19, 2024 End: August 19, 2024 Nataliya Gomez MD Referring Provider Active Start : August 19, 2024 End: August 19, 2024 Team Status: Inactive Member Role/Relationship Status Sandra Gomez MD Primary Care Provider Active St art: October 03, 2024 End: October 03, 2024 Dr. Ar Villarreal MD Attending Provider Active Start: October 03, 2024 End: October 03, 2024 Dr. Ar Villarreal MD Referring Provider Active Start: October 03, 2024 End: October 03, 2024 Team Status: Inactive Member Role/Relationship Status Sandra Gomez MD Primary Care Provider Active St art: October 23, 2024 End: October 23, 2024 Dr. Humphrey Andrew DO Attending Provider Active Start : October 23, 2024 End: October 23, 2024 Dr. Humphrey Andrew DO Emergency Provider Active Start : October 23, 2024 End: October 23, 2024 Team Status: Inactive Member Role/Relationship Status Sandra Gomez MD Primary Care Provider Active St art: October 24, 2024 End: October 24, 2024 Nataliya Gomez MD Referring Provider Active Start : October 24, 2024 End: October 24, 2024 Dr. Moses Montalvo DO Attending Provider Active Start: October 24, 2024 End: October 24, 2024 Team Status: Inactive Member Role/Relationship Status Sandra Gomez MD Primary Care Provider Active St art: October 24, 2024 End: October 24, 2024 Dr. Moses Montalvo DO Attending Provider Active Start: October 24, 2024 End: October 24, 2024 Dr. Moses Montalvo DO Referring Provider Active Start: October 24, 2024 End: October 24, 2024 Team Status: Inactive Member Role/Relationship Status Sandra Gomez MD Primary Care Provider Active St art: November 02, 2024 End: November 02, 2024 Nataliya Gomez MD Attending Provider Active Start : November 02, 2024 End: November 02, 2024 Nataliya Gomez MD Referring Provider Active Start : November 02, 2024 End: November 02, 2024 Team Status: Inactive Member Role/Relationship Status Sandra Gomez MD Primary Care Provider Active St art: November 08, 2024 End: November 08, 2024 Dr. Moses Montalvo DO Attending Provider Active Start: November 08, 2024 End: November 08, 2024 Dr. Moses Montalvo DO Referring Provider Active Start: November 08, 2024 End: November 08, 2024 Team Status: Inactive Member Role/Relationship Status Sandra Gomez MD Primary Care Provider Active St art: November 15, 2024 End: November 15, 2024 Dr. Moses Montalvo DO Attending Provider Active Start: November 15, 2024 End: November 15, 2024 Dr. Moses Montalvo DO Referring Provider Active Start: November 15, 2024 End: November 15, 2024 Team Status: Inactive Member Role/Relationship Status Dates Nataliya Gomez MD Primary Care Provider Active St art: November 26, 2024 End: November 26, 2024 Dr. Moses Montalvo DO Attending Provider Active Start: November 26, 2024 End: November 26, 2024 Dr. Moses Montalvo DO Referring Provider Active Start: November 26, 2024 End: November 26, 2024 Marketing Manager Health Communications Relationship Specialty Start Date End Date Nataliya Gomez MD [address] [place] [address] [place] [address] PCP - General Family Medicine 10/31/23 Care Team (unrecognized sect ion and content) Care Team Personnel Name: Susan Rodriguezreros Brooke PT Position: P3 Scheduling - Corporate Travel Coordinator Advanced Member Role: Other Name: PHYSICIAN, NONE Position: Physician Member Role: Primary Care Physician Care Team Related Persons Name: YEIMI GANDARA Address: [address] [phone] [place] Name: SILVANA GIRON Address: [address] [place], [place] [id number] [place] Address: Temporary [address] [facility] [id number] Care Team Personnel Name: Susan Rodriguez PT Position: P3 Scheduling - Corporate Travel Coordinator Advanced Member Role: Other Name: PHYSICIAN, NONE Position: Physician Member Role: Primary Care Physician Care Team Related Persons Name: YEIMI GANDARA Address: [address] [phone] [place] Name: SILVANA GIRON Address: [address] [place], [place] [id number] [place] Address: Temporary [address] [facility] [phone] Care Team Personnel Name: Susan Rodriguez PT Position: P3 Scheduling - Corporate Travel Coordinator Advanced Member Role: Other Name: PHYSICIAN, NONE Position: Physician Member Role: Primary Care Physician Name: AUBREY CASTILLO DO Position: ED Physician Member Role: ED Physician Address: Address: [address] [place], [place] [address] Name: MARIE Allen Position: AO RN Member Role: ED RN Care Team Related Persons Name: YEIMI GANDARA Address: Home [address] [place], [place] [id number] [place] Name: SILVANA GIRON Address: [address] [place], [place] [phone] [place] Address: [facility] [address] [facility] [id number] Goals (unrecognized section and content) Goals may [...] BE BASED ON THE PRIMARY CLINICAL RECORDS. [facility] [employer] [facility]. provides no warranty or guarantee of the accuracy or completeness of information in this document.
[2024-12-16 06:08] VITALS: BP 109/71; PULSE 80; RESP 17; TEMP 36.4; O2SAT 97; BMI 38.0
[2024-12-16] MEDS: Lactated Ringers 1,000 ML 15 ML IV (06:08)
[2024-12-16 06:15] LABS: Internal QC Validated? YES +Cl - CLEAR BKGD; Pregnancy, Urine Negative Negative; Record Kit Lot#,Urine Preg 0000962302
--- NOTE | 2024-12-16 06:22 | PCM.PRE.AN2 ---
ASA Classification* ASA Classification ASA Classification: 2 Assessment & Plan Anesthesia* Anesthesia Assessment Anesthesia Assessment: Discussed sedation and/or anesthesia options, risks, benefits, and alternatives with patient/parents/legal guardian/POA. Questions invited. The patient/parents/legal guardian/POA seems to understand and agrees to proceed with anesthesia plan. Reviewed the physical assessment, medical history, allergy history and patient home medications list prior to surgery/procedure/anesthetic and documented any changes. Performed airway and anesthesia risk assessments. Anesthesia Type Anesthesia Type: MAC History Source History Obtained from:: Patient and Chart Anesthesia Focused Assessment* Temperature: 97.6 F Pulse Rate: 80 Blood Pressure: 109/71 Respiratory Rate: 17 Pulse Ox: 97 Oxygen Delivery Method: Room Air Airway Assessment Mouth opens: >3 cm Mallampati Score: II Teeth Condition: Intact Neck Range of motion (ROM): Full ROM Labs Anesthesia Preop lab: CBC WBC 8.2 K/mm3 (4.4-11.0) 11/08/24 11:11/08/24 RBC 4.30 M/mm3 (4.2-5.4) 11/08/24 11:25 11/08/24 Hgb 14.2 g/dL (12.0-15.0) 11/08/24 11:11/08/24 Hct 42.9 % (37-47) 11/08/24 11:25 11/08/24 Plt Count 222 K/mm3 (150-450) 11/08/24 11:25 11/08/24 CHEMISTRY Potassium 3.6 mmol/L (3.3-5.1) 11/08/24 12:21 11/08/24 Sodium 138 mmol/L (133-145) 11/08/24 11:25 11/08/24 Magnesium 2.0 mg/dL (1.5-2.2) 10/24/24 11:43 10/24/24 Phosphorus 2.8 mg/dL (2.7-4.5) 10/24/24 11:10/24/24 BUN 9 mg/dL (4-19) 11/08/24 11:25 11/08/24 Creatinine 0.77 mg/dL (0.70-1.20) 11/08/24 11:25 11/08/24 Glucose 98 mg/dL (70-99) 11/08/24 11:25 11/08/24 TSH 0.666 uIU/mL (0.300-4.200) 11/08/24 11:25 11/08/24 COAG PT 12.7 SECONDS (11.7-14.9) 12/28/13 03:00 12/28/13 HCG, Quant < 1 mIU/mL (1-3) 05/20/19 14:58 05/20/19 Urine Test Negative Negative 12/16/24 05:57 12/16/24 Pre-Assessment Diagnosis/Proposed Procedure Planned Operative Procedure(s): EGD Anesthesia History Anesthesia History - [facility] floor: Anesthesia History - [facility] floor Hx Hospitalization No 12/13/24 08:38 Any Problems With Anesthesia No 12/13/24 08:38 Cholinesterase deficiency No 12/13/24 08:38 You/Your Family Experience No 12/13/24 08:38 fever (hyperthermia) with Relationship Recent Exposure to Contagious No 12/16/24 06:08 Disease Does patient have nerve No 12/13/24 08:38 stimulator Patient instructed to have device shut off --Does patient have Pacemaker No 12/16/24 06:08 or ICD? When Was Last Pacemaker Check QUESTION #4 FULL TEXT: You/Your Family Experience fever (hyperthermia) with Anesthesia Last Oral Intake Last Oral intake: Last Oral Intake NPO since 02:30 12/16/24 06:08 Meds taken in AM with sips of No 12/16/24 06:08 water? Meds patient instructed to take am of surgery PONV PONV - [facility] floor: PONV - [facility] floor Female Yes 12/13/24 08:38 HX of Motion Sickness No 12/13/24 08:38 HX of N/V After Surgery No 12/13/24 08:38 Non-Smoker No 12/13/24 08:38 Duration of Surgery greater No 12/13/24 08:38 than 60 minutes Number of Risk Factors 1 12/13/24 08:38 PONV Score Low Risk 12/13/24 08:38 Height & Weight Height & Weight: Anesthesia: Height & Weight Height 5 ft 6 in 12/16/24 06:08 Weight: 107 kg 12/16/24 06:08 Body Mass Index (BMI) 38.0 12/16/24 06:08 Respiratory Assessment Respiratory Assessment - [facility] floor: Respiratory Tract Infection Hx - [facility] floor Hx Respiratory Tract Infection No 12/13/24 08:38 STOP Sleep Apnea STOP Sleep Apnea - [facility] floor: STOP Sleep Apnea - [facility] floor Hx Hypertension No 12/13/24 08:38 Hx Sleep Apnea No 12/13/24 08:38 CPAP BIPAP Do you snore loudly (louder No 12/13/24 08:38 than talking or can be heard Do you often feel tired/ Yes 12/13/24 08:38 fatigued/ sleepy during daytime? Has anyone observed you stop No 12/13/24 08:38 breathing during sleep? STOP Results Negative 12/13/24 08:38 QUESTION #5 FULL TEXT : Do you snore loudly (louder than talking or can be heard through closed doors)? 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 confused, unrespo /Reproduction History /Reproductive History - [facility] floor: /Reproductive Hx- [facility] floor Hx Now No 12/13/24 08:38 Gestational Age (in weeks): EDC: Hx Hx Para Hx Section SAB No 12/13/24 08:38 Active Medications Active Medications: Current Medications Generic Name Dose Route Start Last Admin Trade Name Freq PRN Reason Stop Dose Admin Lactated Ringer's 1,000 mls @ 15 mls/hr 12/16/24 06:00 12/16/24 06:08 IV 15 mls/hr .Q48H KAR Administration PFSH Medical History ADHD Marijuana use Arthritis Fatty liver Easy bruising Leg cramps Migraine headache Gastric reflux Shortness of breath on exertion Smoker History of pain when walking History of echocardiogram IBS (irritable bowel syndrome) Bipolar disorder Low back pain Depression Anxiety Home Medications ?Medication ?Instructions ?Recorded ?Last Taken ?Type biotin 2,500 mcg chewable tablet 2,500 mcg PO DAILY 10/24/24 12/15/24 History dextroamphetamine-amphetamine 30 30 mg PO QDAY 10/24/24 12/15/24 History mg tablet (Adderall) gabapentin 600 mg tablet 800 mg PO TID 10/24/24 12/16/24 History lamotrigine 150 mg tablet 100 mg PO QHS 10/24/24 12/15/24 History omeprazole 40 mg capsule,delayed 40 mg PO QDAY 10/24/24 12/16/24 History release promethazine 12.5 mg tablet 12.5 mg PO Q6H PRN nausea and 10/24/24 Unknown History vomiting rifaximin 550 mg tablet (Xifaxan) 550 mg PO TID 10/24/24 12/15/24 History zolpidem 10 mg tablet (Ambien) 10 mg PO QHS 10/24/24 12/15/24 History prochlorperazine maleate 10 mg 10 mg PO Q8H PRN nausea and 11/04/24 Unknown Rx tablet (Compazine) vomiting #30 tabs dicyclomine 20 mg tablet 20 mg PO TID #90 tabs 11/19/24 12/16/24 Rx prochlorperazine 25 mg rectal 25 mg MS BID PRN nausea and 11/28/24 Unknown Rx suppository (Compazine) vomiting #12 ea albuterol sulfate 90 mcg/actuation 2 puff inhalation 4X/DAY PRN PRN 12/12/24 Unknown History aerosol inhaler shortness of breath or wheezing atogepant 60 mg tablet (Qulipta) 60 mg PO DAILY 12/12/24 12/16/24 History cholecalciferol (vitamin D3) 50 50 mcg PO DAILY 12/12/24 12/15/24 History mcg (2,000 unit) tablet (Vitamin D3) drospirenone 3 mg-ethinyl 1 tab PO DAILY 12/12/24 12/15/24 History estradiol 0.03 mg tablet (Zainab) oxybutynin chloride 10 mg 10 mg PO DAILY 12/12/24 12/16/24 History tablet,extended release 24 hr tizanidine 4 mg tablet 4 mg PO QHS 12/12/24 12/15/24 History Allergy/AdvReac Type Severity Reaction Status Date / Time ibuprofen AdvReac Intermediate Hives Verified 12/16/24 06:06 codeine AdvReac Upset Verified 12/16/24 06:06 Stomach hydrocodone bitartrate (From AdvReac Upset Verified 12/16/24 06:06 Vicodin) Stomach Surgical History (Updated 12/13/24 @ 08:48 by Genoveva Benitez) History of History of appendectomy Hx of knee surgery Social History (Updated 10/24/24 @ 10:56 by Meme Suazo) housing: apartment current occupational status: disabled Smoking Status: Current every day smoker tobacco type: cigarettes alcohol intake: never substance use type: marijuana what type of physical activity do you participate in: walking Review of Systems (Anesthesia) ROS Narrative System reviewed and no additional complaints, except as documented. Physical Exam Const alert and oriented x3 Neck full ROM Cardio regular rate and regular rhythm Back/Spine normal ROM Extremity full ROM Neuro oriented x3 and moves all extremities
[2024-12-16 06:23] VITALS: BP 109/71; PULSE 80; RESP 17; TEMP 36.4; O2SAT 97
--- NOTE | 2024-12-16 06:30 | EGD_PTH ---
PATIENT: CARLOS NELSON LOC: EN U#:[id number] AGE/SX: 34/F ROOM: RE12/16/[address]: Dr. Moses Montalvo DO : 1990 BED: DIS: 12/16/2024 SPEC #: [id number] RECD: 12/16/24 07:33 STATUS: SAMUEL REQ #: [id number] LISSETT: 12/16/24 06:[address]: Moses Montalvo DEPT: SURGICAL PATHOLOGY RECD BY: Brian Painter ENTERED: 12/16/24 11:14 SP TYPE: EGD BIOPSY OT DR: Nataliya Oliveira MD Tissues: A - Esophagus, NOS Procedures: Surgery Specimen Level IV HEADER OPERATION: EGD, biopsy PRE-OP DIAGNOSIS: Abdominal pain, diarrhea, irritable bowel syndrome TISSUE SUBMITTED: A- Distal esophagus biopsy MICROSCOPIC DIAGNOSIS A. Distal esophagus, biopsy: * Benign squamous epithelium without active inflammation * Oxynto-cardiac mucosa with chronic inflammation * No goblet cell metaplasia is identified MICROSCOPIC DESCRIPTION Slides are reviewed. GROSS DESCRIPTION A. Received in fixative is one container labeled with the patient's name and designated Distal esophagus biopsy. The specimen consists of two irregular fragments of light harrison soft tissue that in aggregate measure 0.5 and 0.7 cm. The specimen is totally submitted in one cassette. DRISS/ 12/16/2024 CPT:49861
--- NOTE | 2024-12-16 06:42 | PCM.HP.STD ---
HPI - General General Date of Admission: 12/16/24 Date of Service: 12/16/24 Chief Complaint: Nausea, vomiting and diarrhea HPI Narrative CARLOS NELSON, is a 34 F who presents for the evaluation of nausea, vomiting and occasional diarrhea. *BGI established 10.24.24 pt reports long history of IBS; daily is experiencing nausea, vomiting, and diarrhea. Pt reports difficulty swallowing due to increased mucous. Pt reports daily marijuana use for back pain. Pt reports that she has never had a colonoscopy or EGD, was scheduled for a colonoscopy a few years ago but states that pills she has to take for the prep made her sick. [facility] Medical History ADHD Marijuana use Arthritis Fatty liver Easy bruising Leg cramps Migraine headache Gastric reflux Shortness of breath on exertion Smoker History of pain when walking History of echocardiogram IBS (irritable bowel syndrome) Bipolar disorder Low back pain Depression Anxiety Home Medications ?Medication ?Instructions ?Recorded ?Last Taken ?Type biotin 2,500 mcg chewable tablet 2,500 mcg PO DAILY 10/24/24 12/15/24 History dextroamphetamine-amphetamine 30 30 mg PO QDAY 10/24/24 12/15/24 History mg tablet (Adderall) gabapentin 600 mg tablet 800 mg PO TID 10/24/24 12/16/24 History lamotrigine 150 mg tablet 100 mg PO QHS 10/24/24 12/15/24 History omeprazole 40 mg capsule,delayed 40 mg PO QDAY 10/24/24 12/16/24 History release promethazine 12.5 mg tablet 12.5 mg PO Q6H PRN nausea and 10/24/24 Unknown History vomiting rifaximin 550 mg tablet (Xifaxan) 550 mg PO TID 10/24/24 12/15/24 History zolpidem 10 mg tablet (Ambien) 10 mg PO QHS 10/24/24 12/15/24 History prochlorperazine maleate 10 mg 10 mg PO Q8H PRN nausea and 11/04/24 Unknown Rx tablet (Compazine) vomiting #30 tabs dicyclomine 20 mg tablet 20 mg PO TID #90 tabs 11/19/24 12/16/24 Rx prochlorperazine 25 mg rectal 25 mg AL BID PRN nausea and 11/28/24 Unknown Rx suppository (Compazine) vomiting #12 ea albuterol sulfate 90 mcg/actuation 2 puff inhalation 4X/DAY PRN PRN 12/12/24 Unknown History aerosol inhaler shortness of breath or wheezing atogepant 60 mg tablet (Qulipta) 60 mg PO DAILY 12/12/24 12/16/24 History cholecalciferol (vitamin D3) 50 50 mcg PO DAILY 12/12/24 12/15/24 History mcg (2,000 unit) tablet (Vitamin D3) drospirenone 3 mg-ethinyl 1 tab PO DAILY 12/12/24 12/15/24 History estradiol 0.03 mg tablet (Zainab) oxybutynin chloride 10 mg 10 mg PO DAILY 12/12/24 12/16/24 History tablet,extended release 24 hr tizanidine 4 mg tablet 4 mg PO QHS 12/12/24 12/15/24 History Allergy/AdvReac Type Severity Reaction Status Date / Time ibuprofen AdvReac Intermediate Hives Verified 12/16/24 06:06 codeine AdvReac Upset Verified 12/16/24 06:06 Stomach hydrocodone bitartrate (From AdvReac Upset Verified 12/16/24 06:06 Vicodin) Stomach Surgical History History of History of appendectomy Hx of knee surgery Social History housing: apartment current occupational status: disabled Smoking Status: Current every day smoker tobacco type: cigarettes alcohol intake: never substance use type: marijuana what type of physical activity do you participate in: walking ROS Constitutional Constitutional: Denies fatigue, fever(s), poor appetite, weight gain or weight loss Gastrointestinal Gastrointestinal: Denies belching, bloating, change in bowel habits, change in stool character, chewing difficulty, coffee ground emesis, constipation, cramping, diarrhea, dyspepsia, dysphagia, early satiety, excessive flatus, fecal incontinence, heartburn, hematemesis, hematochezia, hemorrhoids, loose stools, melena, nausea, odynophagia, rectal bleeding, tenesmus, vomiting or weight changes Vital Signs Vital Signs Vital Signs: 12/16/24 06:08 12/16/24 06:08 12/16/24 06:23 Temperature 97.6 F L 97.6 F L Temperature Source Temporal Pulse Rate 80 80 Respiratory Rate 17 17 Respiratory Pattern Normal Blood Pressure 109/71 109/71 Blood Pressure Mean 83 Blood Pressure Source Monitor Blood Pressure Position Semi-Fowlers Blood Pressure Location Left Arm Pulse Ox 97 97 Oxygen Delivery Method Room Air Room Air Weight Weight: 235 lb 14.314 oz Body Mass Index (BMI) 38.0 Physical Exam Const alert, oriented x3, no apparent distress and healthy appearing General Appearance: cooperative GI normal to inspection, nondistended, normoactive bowel sounds, soft to palpation, non-tender and non-distended Percussion: normal to percussion Rectal Exam: deferred Results Lab / Micro Data Labs: Laboratory Results - last 24 hr 12/16/24 05:57: Urine Test Negative Assessment & Plan Assessment/Plan (1) Abdominal pain: (2) Diarrhea: (3) IBS (irritable bowel syndrome): PLAN: Assessment and Plan Assessment and Plan (1) Abdominal pain: Status: Acute (2) Diarrhea: Status: Acute Plan: 34-year-old with intermittent abdominal pain and alternating constipation and diarrhea. She has a previous diagnosis of IBS with diarrhea on Xifaxan 550 mg p.o. 3 times a day by her primary. She also admits to THC usage for previous diagnosis of anxiety and depression. She is also diagnosed with ADD and is on Adderall and has chronic pain. She takes gabapentin 800 mg p.o. 3 times daily for chronic pain in lamotrigine 200 mg p.o. twice daily. The differential diagnosis for symptoms do include IBS with diarrhea along with marijuana hyperemesis, pancreatitis, celiac disease, inflammatory bowel disease. We will do biochemical workup and we will also order gallbladder ultrasound and HIDA scan with CCK. Orders: Orders Celiac Disease Profile Today R10.9 - Unspecified abdominal pain, R19.7 - Diarrhea, unspecified CRP Today R10.9 - Unspecified abdominal pain, R19.7 - Diarrhea, unspecified Erythrocyte Sed Rate Today R10.9 - Unspecified abdominal pain, R19.7 - Diarrhea, unspecified Hepatitis Panel Acute Today R10.9 - Unspecified abdominal pain, R19.7 - Diarrhea, unspecified Immunoglobulins G/A/M/E Today R10.9 - Unspecified abdominal pain, R19.7 - Diarrhea, unspecified ANCA Today R10.9 - Unspecified abdominal pain, R19.7 - Diarrhea, unspecified Lipase Today R10.9 - Unspecified abdominal pain, R19.7 - Diarrhea, unspecified Amylase Today R10.9 - Unspecified abdominal pain, R19.7 - Diarrhea, unspecified CPK Total, Creatine Kinase Today R10.9 - Unspecified abdominal pain, R19.7 - Diarrhea, unspecified FRIEDA Comprehensive Panel Today R10.9 - Unspecified abdominal pain, R19.7 - Diarrhea, unspecified ADELE + Protein Elect, Serum Today R10.9 - Unspecified abdominal pain, R19.7 - Diarrhea, unspecified Erythropoietin Today R10.9 - Unspecified abdominal pain, R19.7 - Diarrhea, unspecified JAK2 Mutation Analysis Today R10.9 - Unspecified abdominal pain, R19.7 - Diarrhea, unspecified IBD Expanded Profile Today R10.9 - Unspecified abdominal pain, R19.7 - Diarrhea, unspecified Allergen, Food Profile Today R10.9 - Unspecified abdominal pain, R19.7 - Diarrhea, unspecified Gastrin, Serum Today R10.9 - Unspecified abdominal pain, R19.7 - Diarrhea, unspecified Vitamin B12 Today R10.9 - Unspecified abdominal pain, R19.7 - Diarrhea, unspecified Magnesium Today R10.9 - Unspecified abdominal pain, R19.7 - Diarrhea, unspecified Phosphorus Today R10.9 - Unspecified abdominal pain, R19.7 - Diarrhea, unspecified Comprehensive Metabolic Profil Today R10.9 - Unspecified abdominal pain, R19.7 - Diarrhea, unspecified CBC W/Diff, Automated Today R10.9 - Unspecified abdominal pain, R19.7 - Diarrhea, unspecified Chromogranin A Today R10.9 - Unspecified abdominal pain, R19.7 - Diarrhea, unspecified Catecholamines, Plasma Today R10.9 - Unspecified abdominal pain, R19.7 - Diarrhea, unspecified Hepatobilliary Img w/Pharm Int Today R10.9 - Unspecified abdominal pain, R19.7 - Diarrhea, unspecified ABD Limited w/ Elastography Today R10.9 - Unspecified abdominal pain, R19.7 - Diarrhea, unspecified Gastric Emptying Study Today R10.9 - Unspecified abdominal pain, R19.7 - Diarrhea, unspecified Medications: Discontinued prednisone Discontinued Reason: Pt no longer taking 60 mg (3 x 20 mg) PO DAILY 15 tabs 0RF ondansetron Discontinued Reason: Pt no longer taking 4 mg PO Q8H PRN PRN 10 tabs Nausea
[2024-12-16 07:00] VITALS: BP 109/71; BP 120/103; PULSE 96; RESP 16; TEMP 36.4; O2SAT 97
--- NOTE | 2024-12-16 07:04 | OP.EGD_ITS ---
Patient Name: Polina Giron Procedure Date: 12/16/2024 6:36 AM Date of : 1990 Age: 34 Procedure: Upper GI endoscopy Indications: Epigastric abdominal pain, Functional Dyspepsia, Heartburn, Suspected esophageal reflux Providers: Moses Montalvo DO Referring MD: Nataliya Oliveira Md Medicines: Monitored Anesthesia Care Patient Profile: This is a 34 year old female. Refer to note in patient chart for documentation of history and physical. Patient has symptoms of acute abdominal cramping, chronic epigastric abdominal pain, acute dyspepsia, chronic nausea, chronic regurgitation and chronic vomiting. Complications: No immediate complications. Procedure: Pre-Anesthesia Assessment: - Prior to the procedure, a History and Physical was performed, and patient medications and allergies were reviewed. The patient is competent. The risks and benefits of the procedure and the sedation options and risks were discussed with the patient. All questions were answered and informed consent was obtained. Patient identification and proposed procedure were verified by the physician in the pre-procedure area. Mental Status Examination: alert and oriented. Airway Examination: normal oropharyngeal airway and neck mobility. Respiratory Examination: clear to auscultation. CV Examination: normal. Prophylactic Antibiotics: The patient does not require prophylactic antibiotics. Prior Anticoagulants: The patient has taken no anticoagulant or antiplatelet agents except for NSAID medication. ASA Grade Assessment: II - A patient with mild systemic disease. After reviewing the risks and benefits, the patient was deemed in satisfactory condition to undergo the procedure. The anesthesia plan was to use monitored anesthesia care (MAC). Immediately prior to administration of medications, the patient was re-assessed for adequacy to receive sedatives. The heart rate, respiratory rate, oxygen saturations, blood pressure, adequacy of pulmonary ventilation, and response to care were monitored throughout the procedure. The physical status of the patient was re-assessed after the procedure. After obtaining informed consent, the endoscope was passed under direct vision. Throughout the procedure, the patient's blood pressure, pulse, and oxygen saturations were monitored continuously. The Endoscope was introduced through the mouth, and advanced to the second part of duodenum. The upper GI endoscopy was accomplished without difficulty. The patient tolerated the procedure well. Scope In: 6:52:18 AM Scope Out: 6:54:41 AM Total Procedure Duration Time 0 hours 2 minutes 23 seconds Findings: The Z-line was irregular and was found 40 cm from the incisors. Biopsies were taken with a cold forceps for histology. Verification of patient identification for the specimen was done. Estimated blood loss was minimal. Suspect gastroparesis due to absence of peristalsis, patient symptoms and retained gastric contents. No gross lesions were noted in the duodenal bulb. Impression: - Z-line irregular, 40 cm from the incisors. Biopsied. - Gastroparesis, idiopathic etiology. - No gross lesions in the duodenal bulb. Recommendation: - Discharge patient to home. - Resume previous diet. - Continue present medications. - Await pathology results. - Gastric emptying study Procedure Code(s): --- Professional --- 45186, Esophagogastroduodenoscopy, flexible, transoral; with biopsy, single or multiple CPT copyright 2021 [employer]. All rights reserved. The codes documented in this report are preliminary and upon handbag stitcher review may be revised to meet current compliance requirements. Moses Montalvo DO 12/16/2024 7:02:38 AM This report has been signed electronically. Number of Addenda: 0 Note Initiated On: 12/16/2024 6:36 AM
--- NOTE | 2024-12-16 07:04 | OP.CCLET_ITS ---
12/16/2024 Nataliya Oliveira Md Re : Upper GI endoscopy procedure for Polina Yee Tee This procedure was performed on Monday, December 16, 2024. My impressions and recommendations are as follows: Impressions : - Z-line irregular, 40 cm from the incisors. Biopsied. - Gastroparesis, idiopathic etiology. - No gross lesions in the duodenal bulb. Recommendations : - Discharge patient to home. - Resume previous diet. - Continue present medications. - Await pathology results. - Gastric emptying study My findings are described in the full procedure note, which is enclosed. If I can be of further assistance, please feel free to contact me at . Sincerely, Moses Montalvo, 12/16/2024 7:02:38 AM This report has been signed electronically.
[2024-12-16 07:05] VITALS: BP 109/71; BP 124/82; PULSE 82; RESP 16; O2SAT 97
[2024-12-16 07:10] VITALS: BP 109/71; BP 110/62; BP 120/103; PULSE 76; PULSE 86; RESP 16; TEMP 36.1; TEMP 36.4; O2SAT 96; O2SAT 98
--- NOTE | 2024-12-16 07:10 | PCM.POST.ANE ---
Anesthesia: Postop Eval I Current Vital Signs Temperature: 97 F Pulse Rate: 86 Blood Pressure: 120/103 Respiratory Rate: 16 Pulse Ox: 98 Oxygen Delivery Method: Room Air Assessment Airway patent: Yes Spontaneous unlabored respirations: Yes Mental status: Awake and Calm nausea: No Vomiting: No Anesthesia Complication: No Fluid Hydration Crystalloid volume administer (ml): 300 Total IV fluid infused: 300 Progress Note Anesthesia document: Postop Eval 1 completed: Yes
[2024-12-16 07:23] VITALS: BP 109/71
--- NOTE | 2024-12-16 07:40 | PCM.POSTANE2 ---
Anesthesia Postop Eval I Sum Postop Eval Completion status Anesthesia document: Postop Eval 1 completed: Yes Anesthesia Postop Eval I Summary Anesthesia Postop Eval I Summary: Anesthesia Postop Eval I: Assessment Summary Airway patent Yes 12/16/24 07:10 [email or web address] Spontaneous unlabored Yes 12/16/24 07:10 [email or web address] respirations Mental status Awake,Calm 12/16/24 07:10 [email or web address] nausea No 12/16/24 07:10 [email or web address] Vomiting No 12/16/24 07:10 [email or web address] Anesthesia Postop Eval I: Fluid Summary Crystalloid volume administer 300 12/16/24 07:10 [email or web address] (ml) Colloids volume administered ( ml) Blood Product volume administered (ml) Total IV fluid infused 300 12/16/24 07:10 [email or web address] Anesthesia Postop Eval I: Summary Notes Anesthesia Complication No 12/16/24 07:10 [email or web address] Anesthesia Complication Comment: Post-operative progress note Anesthesia: Postop Eval II Evaluation Mental status: Awake and Calm Pain Level: 0 nausea: No Vomiting: No Complications Anesthesia Complication: No
== END 2024-12-16 07:38 | disposition home or self-care (01) ==
LOC: EN 05:30 → AC 05:31
PROVIDERS: Anesthesiology; PCP Family Medicine; Referring Provider Family Medicine; Visit Provider Internal Medicine Gastroenterology
PROC: 0DJ08ZZ Inspection of Upper Intestinal Tract, Via Natural or Artificial Opening Endoscopic (ICD-10-PCS; CPT 43235; principal; 2024-12-16 06:25)
DX: K31.84 Gastroparesis (principal); K58.2 Mixed irritable bowel syndrome; G89.29 Other chronic pain; F90.9 Attention-deficit hyperactivity disorder, unspecified type; F17.210 Nicotine dependence, cigarettes, uncomplicated; Z79.899 Other long term (current) drug therapy
CPT/HCPCS: 43239; 81025; 88305; J2405

== ENCOUNTER → 2025-01-15 | Outpatient (CLI) | payer MEDICARE, MEDICAID, SELFPAY ==
--- NOTE | 2025-01-15 11:08 | NM_ITS ---
PROCEDURE: GASTRIC EMPTYING STUDY 01/15/2025 REASON FOR EXAM: GASTROPARESIS COMPARISON: None TECHNIQUE: The patient ingested a standard meal of oatmeal,, and water. There was no vomiting postprandially. Anterior and posterior planar images of the upper abdomen were obtained for 1 minute immediately following the meal at 1h, 2h and 4h if more than 10% of the activity persisted within the stomach. Regions of interest were drawn, and a geometric mean was used to calculate a [id number]. RADIOPHARMACEUTICAL: Sulfur colloid DOSE 1.2mCi FINDINGS: Percent activity remaining in stomach: 1 hour 65 % (normal 37-90%) NM/Gastric Emptying Study IMPRESSION: Normal gastric emptying examination. Reading Location: [facility]
== END | disposition home or self-care (01) ==
LOC: NM 11:06
PROVIDERS: PCP Family Medicine; Referring Provider Internal Medicine Gastroenterology; Visit Provider Internal Medicine Gastroenterology
DX: K31.84 Gastroparesis (principal)
CPT/HCPCS: 78264; A9541

== ENCOUNTER 2025-05-22 02:19 | Emergency (ER) | payer MEDICARE, MEDICAID, SELFPAY ==
[2025-05-22 02:19] VITALS: BP 149/93; PULSE 73; RESP 20; TEMP 36.2; O2SAT 100; BMI 36.3
--- OUTSIDE RECORDS SUMMARY | 2025-05-22 02:59 | XMS RPT_ITS | CCD ---
Author Organization [facility] Care Team Providers Care Journalism Professor Name Role Phone CELESTE SAMSON Attending Unavailable IMCA Referring Unavailable BURSLEY, CHRISTOPHER Primary Care Unavailable CELESTE SAMSON Attending Unavailable IMCA Referring Unavailable ALEXANDRA, CHRISTOPHER Primary Care Unavailable CELESTE SAMSON Attending Unavailable CELESTE SAMSON Referring Unavailable BURSLEY, CHRISTOPHER Primary Care Unavailable CELESTE SAMSON Attending Unavailable IMCA Referring Unavailable BURSLEY, CHRISTOPHER Primary Care Unavailable CELESTE SAMSON Attending Unavailable CELESTE SAMSON Referring Unavailable BURSLEY, CHRISTOPHER Primary Care Unavailable CELESTE SAMSON Attending Unavailable CELESTE SAMSON Referring Unavailable BURSLEY, CHRISTOPHER Primary Care Unavailable ASHER COLLIER Attending Unavailable BURSLEY, CHRISTOPHER Referring Unavailable BURSLEY, CHRISTOPHER Primary Care Unavailable Lacey Javed Unavailable Unavailable Beba Humphreys Unavailable Unavailable DR BEBA HUMPHREYS DO Primary Care Physician Mendy Rodriguez PT Unavailable Unavailable Alexandra HOLLAND, Son Primary Care Provider [phone] PHYSICIAN, NONE Primary Care Physician Unavailab Beba Green DO Primary Care Provider [phone] [facility] Physicians Primary Care Provider Unav ailable SEVERINO BLACKWELL DO Attending Unavailable PHYSICIAN, NONE Primary Care Unavailable HELGA PHELPS MD Attending Unavailable PHYSICIAN, NONE Primary Care Unavailable VINH HOLLAND, DR MONTANA Pelayo Attending Kenya womack PHYSICIAN, NONE Primary Care Unavailable Beba Humphreys DO Primary Care Provider Patricia MD, Chalon J Primary Care Provider Patricia HOLLAND, Nataliya Primary Care Provider [phone] Nataliya Gomez MD Attending Provider [phone] Nataliya Gomez MD Referring Provider Patricia HOLLAND Kinzabenjy J Primary Care Provider Cherelle HOLLAND, Dr. Joyner Attending Provider Dr. Sid Villarreal MD Referring Provider Lorrie RODRIGUEZ, Dr. Yin Emergency Provider [phone] Katia RODRIGUEZ, Dr. Lopes Attending Provider Katia RODRIGUEZ, Dr. Lopes Referring Provider Lorrie RODRIGUEZ, Dr. Yin Attending Provider [phone] Patricia HOLLAND Kinzabenjy J Primary Care Provider Katia RODRIGUEZ, Dr. Lopes Other Provider TEMO MALIK Attending Unavailable PATRICIA, CHALON J Primary Care Unavailable TEMO MALIK Attending Unavailable PATRICIA, CHALON J Primary Care Unavailable Nataliya Gomez MD Primary Care Provider [phone] Nataliya Gomez MD Referring Provider [phone] Nataliya Gomez MD Attending Provider [phone] MEGAN MASON Attending Unavailable PATRICIA, CHALON Primary Care Unavailable MEGAN MASON Attending Unavailable PATRICIA, CHALON Primary Care Unavailable MEGAN MASON Attending Unavailable PATRICIA, CHALON Primary Care Unavailable PATRICIA, CHALON Primary Care Unavailable MEGAN MASON Attending Unavailable PATRICIA, CHALON Primary Care Unavailable MEGAN MASON Referring Unavailable PATRICIA, CHALON Primary Care Unavailable PATRICIA, CHALON Primary Care Unavailable VALERI KWOK Attending Unavailable PATRICIA, CHALON Primary Care Unavailable VALERI KWOK Attending Unavailable PATRICIA, CHALON Primary Care Unavailable MEGAN MASON Attending Unavailable PATRICIA, CHALON Primary Care Unavailable Patricia HOLLAND, Nataliya Primary Care Provider [phone] Shira HOLLAND, Dr. Cash Attending Provider Dominique HOLLAND, Dr. Gardner Attending Provider [phone] PATRICIA HOLLAND, CHALON Primary Care Physician [phone] CASSANDRA DPRosangela, BLACK Beach Attending Unavailable PATRICIA , CHALON Primary Care Unavailable SUPPBLACK PERKINS DPM Attending Unavailable PATRICIA , CHALON Primary Care Unavailable Friend, Moses Referring Unavailable Patricia, Chalon Primary Care Unavailable Friend, Moses Attending Unavailable Patricia, Chalon Primary Care Unavailable Humphrey Andrew Attending Unavailable Patricia, Chalon Attending Unavailable Patricia, Chalon Primary Care Unavailable Friend, Moses Referring Unavailable Patricia, Chalon Primary Care Unavailable Friend, Moses Attending Unavailable Patricia, Chalon Referring Unavailable Patricia, Chalon Primary Care Unavailable Friend, Moses Attending Unavailable Patricia, Chalon Primary Care Unavailable Jj Fox Attending Unavailable Schneider, Shailesh Attending Unavailable Patricia, Chalon Primary Care Unavailable Patricia, Chalon Referring Unavailable Patricia, Chalon Referring Unavailable Patricia, Chalon Primary Care Unavailable Friend, Moses Attending Unavailable Patricia, Chalon Referring Unavailable SchneiderShailesh Attending Unavailable Patricia, Chalon Primary Care Unavailable Patricia, Chalon Referring Unavailable Patricia, Chalon Primary Care Unavailable Friend, Moses Attending Unavailable Friend, Moses Consulting Unavailable Friend, Moses Referring Unavailable Patricia, Chalon Primary Care Unavailable Friend, Moses Attending Unavailable Friend, Moses Referring Unavailable Patricia, Chalon Primary Care Unavailable Friend, Moses Attending Unavailable Patricia, Chalon Primary Care Unavailable Friend, Moses Attending Unavailable Friend, Moses Referring Unavailable Friend, Moses Referring Unavailable Patricia, Chalon Primary Care Unavailable Friend, Moses Attending Unavailable Patricia, Chalon Attending Unavailable Patricia, Chalon Primary Care Unavailable Patricia, Chalon Referring Unavailable Patricia, Chalon Attending Unavailable Patricia, Chalon Primary Care Unavailable Patricia, Chalon Referring Unavailable Patricia, Chalon Primary Care Unavailable Friend, Moses Attending Unavailable Friend, Moses Referring Unavailable Patricia, Chalon Primary Care Unavailable Sid Villarreal Referring Unavailable Sid Villarreal Attending Unavailable Patricia, Chalon Referring Unavailable Patricia, Chalon Primary Care Unavailable Friend, Moses Attending Unavailable Allergies Allergy Classification Reported Allergen(s) Allergy Type Date of Onset Reaction(s) Facility Acetaminophen / HYDROcodone (2 sources) Acetaminophen / HYDROcodone Drug Allergy 7 Nausea And Vomiting [facility] NSAIDs (2 sources) Ibuprofen Drug Allergy 9 [facility] Opioid Agonists (2 sources) Codeine Drug Allergy 7 Nausea And Vomiting [facility] (20 sources) Acetaminophen / HYDROcodone; Translations: [HYDROCODONE-ACET AMINOPHEN] Drug Allergy 7 Nausea And Vomiting, GI Upset [facility] (20 sources) Codeine; Translations: [CODEINE] Drug Allergy 7 Nausea And Vomiting, [facility] (11 sources) Acetaminophen / HYDROcodone; Translations: [acetaminophen-hy drocodone] Drug Allergy vomiting, nausea -[facility] Work Phone: (20 sources) Ibuprofen; Translations: [IBUPROFEN] Drug Allergy 9 [facility] (15 sources) HYDROcodone; Translations: [hydrocodone bitartrate] Drug Allergy 0 Upset [facility] (1 source) Ibuprofen Drug Allergy 5 [facility] Repository Medications Current Medications Medication Drug Class(es) Dates Sig (Normalized) Sig (Original) acetaminophen 325 mg / HYDROcodone bitartrate 5 mg oral tablet (1 source) Opioid Agonist Start: 03-14-2025 acetaminophen-hyd rocodone 325 mg-5 mg oral tablet Dose = 1 tab(s), Oral, TID, PRN for pain, tab(s), 0 Refill(s), 98.2 Start Date: 03/14/25 Status: Ordered Medication Dispense Status: Completed Total Allowed Fills: 1 Fills Dispensed: 0 [id number] 200 actuat albuterol 0.09 mg/actuat metered dose inhaler (20 sources) beta2-Adrenergic Agonist Start: 12-12-2024 Albuterol Sulfate 90 mcg/actuation HFA aerosol inhaler Active 2 NMA INHALATION 4 TIMES DAILY NEEDED as needed for shortness of breath or wheezing December 12, 2024 12:00am Start: 01-17-2022 take 2 puff(s) by in halation four times daily as needed for wheezing ProAir HFA MDI (90 mcg/inh) inhalation aerosol 2 puff(s), Inhalation, QID, PRN as needed for wheezing, # 1 EA, 1 Refill(s), [facility], 167.6, cm, 06/21/21 10:12:00 EST, Height, kg, 06/21/21 10:12:00 EST, Dosing Weight Start Date: 06/21/21 Status: Ordered Start: 06-21-2021 take 2 puff(s) by in halation four times daily as needed for wheezing ProAir HFA MDI (90 mcg/inh) inhalation aerosol 2 puff(s), Inhalation, QID, PRN as needed for wheezing, # 1 EA, 1 Refill(s), Pharmacy: [facility], 167.6, cm, 06/21/21 10:12:00 EST, Height, kg, 06/21/21 10:12:00 EST, Dosing Weight Start Date: 06/21/21 Status: Ordered Start: 12-03-2020 take 2 puff(s) by in halation four times daily as needed for wheezing ProAir HFA MDI (90 mcg/inh) inhalation aerosol 2 puff(s), Inhalation, QID, PRN as needed for wheezing, # 1 EA, 1 Refill(s), Pharmacy: [id number], 167.6, cm, 12/03/20 14:18:00 [...] (20 sources) Central Nervous System Stimulant Start: 03-14-2025 amphetamine-dextro amphetamine 30 mg oral tablet Dose : 30 mg = 1 tab(s), Oral, qAM, 0 Refill(s), 98.2 Start Date: 03/14/25 Status: Ordered Medication Dispense Status: Completed Total Allowed Fills: 1 Fills Dispensed: 0 Start: 10-24-2024 take 1 tablet by suman once daily Dextroamphetamine-Amphetamine (Adderall) 30 mg tablet Active 30 mg PO daily 0 October 24, 2024 12:00am Start: 07-19-2024 take 2 tablets by mo [facility] every twelve hours amphetamine-dextroamphetamine (Adderall) 12.5 mg [...] 2013 12:00am July 01, 2013 7:26pm Atogepant (5 sources) Start: 12-12-2024 take 1 tablet by mouth once daily Atogepant (Atogepant 60 Mg Tablet) 60 mg tablet Active 60 mg PO DAILY December 12, 2024 12:00am Atogepant (Qulipta) 60 MG tablet (12 sources) Start: 11-08-2024 take 1 tablet by mouth once daily in the evening Atogepant (Qulipta) 60 MG tablet Indications: Migraine Take 1 tablet by mouth daily. 90 tablet 3 11/13/2024 3:58 PM EDT 11/08/2024 Active Start: 11-08-2024 take 1 tablet by suman th once daily Atogepant (Qulipta) 60 MG tablet Indications: Migraine Take 1 tablet by mouth daily. 90 tablet 3 11/08/2024 Active atogepant 60 MG Oral Tablet [Qulipta] (1 source) Start: 03-14-2025 Qulipta 60 mg oral tablet Dose : 60 mg = 1 tab(s), Oral, qDay, 0 Refill(s) Start Date: 03/14/25 Status: Ordered Medication Dispense Status: Completed Total Allowed Fills: 1 Fills Dispensed: 0 B-Plex (Vitamin B Complex) oral tablet (9 sources) Start: 11-11-2020 take 1 tablet by mouth once daily B-Plex (Vitamin B Complex) oral tablet Dose = 1 tab(s), Oral, Daily, okay to change to brand covered by insurance., # 30 tab(s), 0 Refill(s), Pharmacy: [facility] [place] [address], 167.6, cm, 11/11/20 15:37:00 EDT, Height, kg, 11/11/20 15:37:00 EDT, Dosing Weight Start Date: 11/11/20 Status: Ordered Medication Dispense Status: Completed Quantity: 30.0 Unit: tab(s) Total Allowed Fills: 1 Fills Dispensed: 0 Start: 11-11-2020 take 1 tablet by suman th once daily B-Plex (Vitamin B Complex) oral tablet Dose = 1 tab(s), Oral, Daily, okay to change to brand covered by insurance., # 30 tab(s), 0 Refill(s), [facility], 167.6, cm, 11/11/20 15:37:00 EDT, Height, [...] Date: 04/11/23 Stop Date: 04/21/23 Status: Ordered biotin 1 mg oral tablet (11 sources) Start: 03-14-2025 biotin 1000 mc g oral tablet Dose : 1,000 mcg = 1 tab(s), Oral, qDay, 0 Refill(s) Start Date: 03/14/25 Status: Ordered Medication Dispense Status: Completed Total Allowed Fills: 1 Fills Dispensed: 0 Start: 10-24-2024 take 1 tablet by suman once daily Biotin 2,500 mcg tablet,chewable Active 2500 ug PO DAILY October 24, 2024 12:00am Start: 10-24-2024 Biotin 2,500 m cg tablet,chewable Active ug PO DAILY October 24, 2024 12:00am Biotin w/ Vitamins C & E (DAWSON IR SKIN & NAILS GUMMIES PO) (20 sources) [...] take 1 tablet by mouth once daily Cholecalciferol (Vitamin D3) (Vitamin D3) 50 mcg (2,000 unit) tablet Active 50 ug PO DAILY December 12, 2024 12:00am cholestyramine resin 4000 mg powder for oral suspension (7 sources) Bile Acid Sequestrant Start: 03-14-2025 take 1 dose by mouth once daily as needed cholestyramine 4 g/9 g oral powder for reconstitution 1 packet(s), Oral, Daily, PRN abdominal discomfort, 0 Refill(s) Start Date: 03/14/25 Status: Ordered Medication Dispense Status: Completed Total Allowed Fills: 1 Fills Dispensed: 0 Start: 01-30-2025 Cholestyramine (With Sugar) 4 gram powder Active 4 g PO TWICE A DAY 378 2 January 30, 2025 2:20pm Start: 01-13-2025 End: 01-30-2025 take 1 dose by mouth twice daily Cholestyramine (With Sugar) 4 gram powder Discontinued 4 g PO TWICE A DAY 378 January 13, 2025 12:00am January 30, 2025 2:20pm administer w/meal; avoid other meds within 1hr before or 4-6hr after dose Start: 01-13-2025 take 1 dose by mouth twice daily Cholestyramine (With Sugar) 4 gram powder Active 4 g PO TWICE A DAY 378 January 13, 2025 12:00am administer w/meal; avoid other meds within 1hr before or 4-6hr after dose clotrimazole 10 mg oral lozenge (10 sources) Azole Antifungal Start: 12-11-2024 clotrimazole (Mycelex) 10 MG sai 12/11/2024 Active diazePAM 5 mg oral tablet (2 sources) Benzodiazepine Start: 09-13-2024 diazePAM ([place] um) 5 mg tablet take 1 tablet by mouth ONCE 15 MINUTES PRIOR TO MRI 09/13/2024 Active dicyclomine hydrochloride 20 mg oral tablet (16 sources) Anticholinergic Start: 03-14-2025 dicyclomine 20 mg oral tablet Dose : 20 mg = 1 tab(s), Oral, BID Start Date: 03/14/25 Status: Ordered Medication Dispense Status: Completed Total Allowed Fills: 1 Fills Dispensed: 0 Start: 11-19-2024 End: 01-02-2025 take 1 tablet by mouth three times daily Dicyclomine 20 mg tablet Active 20 mg PO THREE TIMES A DAY 90 January 02, 2025 8:36am Start: 05-14-2020 take 1 tablet by suman 30 minutes before mealtime as needed for [...] d... Start Date: 03/31/21 Status: Ordered drospirenone / Ethinyl Estradiol (20 sources) Progestin, Estrogen Start: 03-14-2025 take 1 tablet by mouth once daily drospirenone-ethinyl estradiol 3 mg-0.03 mg oral tablet Dose = 1 tab(s), Oral, qDay, # 28 tab(s), 0 Refill(s) Start Date: 03/14/25 Status: Ordered Medication Dispense Status: Completed Quantity: 28.0 Unit: tab(s) Total Allowed Fills: 1 Fills Dispensed: 0 Start: 12-12-2024 take 3 tablets by mo [facility] once daily Drospirenone-Ethinyl Estradiol [Drospirenone 3 Mg-Ethinyl Estradiol 0.03 Mg Tablet] (Drospirenone 3 Mg-Ethinyl Estradiol 0.03 Mg ) 3-0.03 mg tablet Active 1 {tbl} PO DAILY December 12, 2024 12:00am Start: 10-21-2024 drospirenone-e thinyl estradiol ([place]na 28) 3-0.03 MG tablet 1 tablet daily, skip placebos and start new pack 56 tablet 6 10/21/2024 Active famotidine 40 mg oral tablet (8 sources) Histamine-2 Receptor Antagonist Start: 03-22-2021 famotidine 40 mg ora l tablet Dose : 40 mg = 1 tab(s), Oral, qHS, for reflux, # 30 tab(s), 11 Refill(s), Pharmacy: [facility] [id number] [address] [facility], 169.5, cm, 03/22/21 10:28:00 EDT, Height, kg, 12/03/20 14:28:00 EDT, Dosing Weight Start Date: 03/22/21 Status: Ordered gabapentin 800 mg oral tablet (20 sources) Anti-epileptic Agent Start: 03-14-2025 gabapenti n 800 mg oral tablet Dose : 800 mg = 1 tab(s), Oral, TID, PRN Pain, # 90 tab(s), 0 Refill(s), 98.2 Start Date: 03/14/25 Status: Ordered Medication Dispense Status: Completed Quantity: 90.0 Unit: tab(s) Total Allowed Fills: 1 Fills Dispensed: 0 Start: 10-24-2024 Gabapentin 600 mg tablet Active 800 mg PO THREE TIMES A [...] mg oral capsule (20 sources) Antihistamine Start: 03-14-2025 hydrOXYzine pa moate 50 mg oral capsule Dose : 50 mg = 1 cap(s), Oral, TID, PRN for anxiety, 0 Refill(s) Start Date: 03/14/25 Status: Ordered Medication Dispense Status: Completed Total Allowed Fills: 1 Fills Dispensed: 0 Start: 08-01-2022 take 1 capsule by mo uth three times daily for anxiety hydrOXYzine pamoate [...] (Anaspaz,Levsin) 0.125 MG tablet 06/12/2023 Active ibuprofen 200 mg oral tablet (9 sources) Nonsteroidal Anti-inflammatory Drug Start: 03-14-2025 ibuprofen 200 mg ora l tablet Dose : 400 mg = 2 tab(s), Oral, q4h, PRN as needed for pain, Take with food or milk., # 120 tab(s), 0 Refill(s) Start Date: 03/14/25 Status: Ordered Medication Dispense Status: Completed Quantity: 120.0 Unit: tab(s) Total Allowed Fills: 1 Fills Dispensed: 0 Start: 06-21-2021 ibuprofen 800 mg oral tablet Dose : 800 mg = 1 tab(s), Oral, q12h, PRN as needed for pain, # 60 tab(s), 2 Refill(s), [facility], DDD (degenerative disc disease), lumbar, 167.6, cm, 06/21/21 10:12:00 EST, Height, kg, 06/21/21 10:12:00 EST, Dosing Weight Start Date: 06/21/21 Status: Ordered Start: 03-22-2021 ibuprofen 800 mg oral tablet Dose : 800 mg = 1 tab(s), Oral, q12h, PRN as needed for pain, # 60 tab(s), 2 Refill(s), Pharmacy: [facility], DDD (degenerative disc disease), lumbar, 169.5, cm, 03/22/21 10:28:00 EDT, Height, kg, 12/03/20 14:28:00 EDT, Dosing Weight Start Date: 03/22/21 Status: Ordered ipratropium bromide 0.042 mg/actuat metered dose nasal spray (1 source) Anticholinergic Start: 03-14-2025 ipratropium 42 mcg/inh (0.06%) nasal spray 84 mcg Dose = 2 spray(s), Nasal, TID, PRN as needed for allergy symptoms Start Date: 03/14/25 Status: Ordered Medication Dispense Status: Completed Total Allowed Fills: 1 Fills Dispensed: 0 ketoconazole 20 mg/ml topical cream (1 source) Azole Antifungal Start: 12-18-2022 End: 01-15-2023 ketoconazole 2% topical cream Apply 1 asher, Topical, BID, X 14 day(s), # 30 gram(s), 1 Refill(s), Cream, 98.2 Start Date: 12/18/22 Stop Date: 01/15/23 Status: Ordered lamoTRIgine 150 mg oral tablet (20 sources) Mood Stabilizer, Anti-epileptic Agent Start: 10-24-2024 Lamotrigine 150 mg tablet Active 100 mg PO AT BEDTIME October 24, 2024 11:08am Start: 10-24-2024 Lamotrigine 15 0 mg tablet Active 200 mg PO TWICE A DAY October 24, 2024 11:08am Start: 10-08-2020 End: 12-15-2022 lamoTRIgine (LaMICtal) 200 M G tablet 06/12/2023 Active Start: 10-03-2019 End: 10-24-2024 take 1 tablet by mouth twice daily Lamotrigine 150 MG tablet Discontinued 150 mg PO TWICE A DAY May 22, 2020 1:00am October 24, 2024 11:15am End: 11-07-2024 take 4 tablets by mouth in the morning lamoTRIgine (LaMICtal) 25 MG tablet Take 100 mg by mouth in the morning. 11/07/2024 Discontinued magnesium oxide 500 mg oral tablet (3 sources) Start: 01-28-2025 take 2 tablets by mouth at bedtime Magnesium Oxide 500 mg magnesium tablet Active 1000 mg PO AT BEDTIME 60 30 3 January 28, 2025 12:00am 1 ml medroxyPROGESTERone acetate 150 mg/ml prefilled syringe (20 sources) Progestin Start: 07-09-2024 End: 10-21-2024 medroxyPROGESTERone 150 mg/mL injection syringe 07/09/2024 Active Start: 12-21-2023 End: 10-21-2024 medroxyPROGESTERone [...] 150 MG/ML syringe Discontinued 150 mg IM .[id number] May 22, 2020 1:00am October 24, 2024 11:08am Start: 05-22-2020 inject 150 mg by int ramuscular injection every three months Medroxyprogesterone Active 150 MG IM .[id number] May 22, 2020 12:00am medroxyPROGESTER one (Depo-Provera) 150 MG/ML injection Inject 150 mg into the shoulder, thigh, or buttocks every 90 minutes as needed. 0 Active mirtazapine 15 mg oral tablet (1 [...] Take by mouth. 0 Active Multivitamin preparation (9 sources) Start: 12-24-2018 take 1 tablet by mouth once daily Multivitamin Dose = 1 tab(s), Oral, Daily, 0 Refill(s) Start Date: 12/24/18 Status: Ordered Medication Dispense Status: Completed Total Allowed Fills: 1 Fills Dispensed: 0 Start: 12-24-2018 take 1 tablet by suman th once daily Multivitamin Dose = 1 tab(s), Oral, Daily, 0 Refill(s) Start Date: 12/24/18 Status: Ordered Multivitamin With Minerals (2 sources) Start: 05-22-2020 Multivitamin W ith Minerals Active 1 EACH PO DAILY May 22, 2020 12:00am nystatin [id number] unt/ml oral suspension (2 sources) Polyene Antifungal [...] (Duplicate order) OLANZapine 5 mg oral tablet (2 sources) Atypical Antipsychotic Start: 11-05-2024 take 1 tablet by mouth once daily at bedtime OLANZapine (ZyPREXA) 5 mg tablet Take 1 tablet (5 mg) by mouth once daily at bedtime. 11/05/2024 Active olanzapine 5 MG / samidorphan 10 MG Oral Tablet [Lybalvi] (1 source) Start: 03-14-2025 take 1 tablet by mouth once daily at bedtime Lybalvi 5 mg-10 mg oral tablet Dose = 1 tab(s), Oral, qHS, swallow whole Start Date: 03/14/25 Status: Ordered Medication Dispense Status: Completed Total Allowed Fills: 1 Fills Dispensed: 0 omeprazole 40 mg delayed release oral capsule (20 sources) Proton Pump Inhibitor Start: 03-14-2025 omeprazole 40 mg oral delayed release capsule Dose : 40 mg = 1 cap(s), Oral, qDay, before a meal, # 30 cap(s), 0 Refill(s) Start Date: 03/14/25 Status: Ordered Medication Dispense Status: Completed Quantity: 30.0 Unit: cap(s) Total Allowed Fills: 1 Fills Dispensed: 0 Start: 04-07-2022 take 1 capsule by [facility] once daily Omeprazole 40 mg capsule,delayed release(DR/EC) Active 40 mg PO daily October 24, 2024 12:00am ondansetron 4 mg oral tablet (20 sources) Serotonin-3 Receptor Antagonist Start: 05-22-2020 End: 10-24-2024 take 1 tablet by mouth every eight hours as needed for nausea Ondansetron 4 MG tablet Discontinued 4 mg PO EVERY 8 HOURS NEEDED as needed for Nausea May 22, 2020 1:00am October 24, 2024 11:09am Start: 09-22-2018 End: 01-04-2022 ondansetron 4 mg oral tablet Dose : 4 mg = 1 tab(s), Oral, q6h, PRN Nausea/Vomiting, # 60 tab(s), 1 Refill(s), [facility], 167.6, cm, 06/21/21 10:12:00 EST, Height, kg, 06/21/21 10:12:00 EST, Dosing Weight Start Date: 06/21/21 Status: Ordered Medication Dispense Status: Completed Quantity: 60.0 Unit: tab(s) Total Allowed Fills: 2 Fills Dispensed: 0 Indications: Nausea; Start: 06-29-2013 End: 07-01-2013 take 1 tablet by mouth every eight hours as needed for nausea Ondansetron 4 MG tablet Discontinued 4 mg PO EVERY 8 HOURS NEEDED as needed for Nausea June 29, 2013 1:00am July 01, 2013 7:26pm 24 hr oxybutynin chloride 10 mg extended release oral tablet (8 sources) Cholinergic Muscarinic Antagonist Start: 03-14-2025 take 1 tablet by mouth every hour, then take 1 tablet by mouth once daily oxybutynin 10 mg/24 hr oral tablet, extended release Dose : 10 mg = 1 tab(s), Oral, qDay, # 30 tab(s), 0 Refill(s) Start Date: 03/14/25 Status: Ordered Medication Dispense Status: Completed Quantity: 30.0 Unit: tab(s) Total Allowed Fills: 1 Fills Dispensed: 0 Start: 12-12-2024 take 1 tablet by suman th once daily Oxybutynin Chloride 10 mg tablet extended release 24hr Active 10 mg PO DAILY December 12, 2024 12:00am Start: 11-02-2024 take 1 tablet by suman th every twenty-four hours in the morning oxyBUTYnin XL (Ditropan-XL) 10 mg 24 hr tablet Take 1 tablet (10 mg) by mouth early in the morning.. 11/02/2024 Active oxyCODONE hydrochloride 5 mg oral tablet (2 sources) Opioid Agonist Start: 09-26-2024 take 1 tablet by mouth every twelve hours oxyCODONE (Roxicodone) 5 mg immediate release tablet Take 1 tablet (5 mg) by mouth every 12 hours. 09/26/2024 Active prochlorperazine 25 mg rectal suppository (20 sources) Phenothiazine Start: 11-28-2024 Prochlorperazine (Compazine) 25 mg suppository Active 25 mg RC TWICE A DAY as needed for nausea and vomiting 05 06November 28, 2024 12:00am Start: 11-04-2024 End: 02-07-2025 take 1 tablet by mouth every eight hours as needed for nausea and vomiting Prochlorperazine Maleate (Compazine) 10 mg tablet Discontinued 10 mg PO Q8H as needed for nausea and vomiting November 04, 2024 12:00am February 07, 2025 8:06am Start: 12-27-2023 take 1 tablet by suman [...] Ordered promethazine hydrochloride 12.5 mg oral tablet (13 sources) Phenothiazine Start: 03-14-2025 promethazine 1 2.5 mg oral tablet Dose : 12.5 mg = 1 tab(s), Oral, TID, PRN for nausea/vomiting Start Date: 03/14/25 Status: Ordered Medication Dispense Status: Completed Total Allowed Fills: 1 Fills Dispensed: 0 Start: 10-24-2024 take 1 tablet by suman th every six hours as needed for nausea and vomiting Promethazine 12.5 mg tablet Active 12.5 mg PO EVERY 6 HOURS as needed for nausea and vomiting October 24, 2024 12:00am Start: 10-10-2024 take 1 tablet by suman th every eight hours for nausea promethazine (Phenergan) 12.5 mg tablet take 1 tablet by mouth every 8 hours if needed if needed for nausea 10/10/2024 Active rifAXIMin 550 mg oral tablet (20 sources) Rifamycin Antibacterial Start: 03-14-2025 Xifaxa n 550 mg oral tablet Dose : 550 mg = 1 tab(s), Oral, TID Start Date: 03/14/25 Status: Ordered Medication Dispense Status: Completed Total Allowed Fills: 1 Fills Dispensed: 0 Start: 06-19-2023 take 1 tablet by suman th three times daily Rifaximin (Xifaxan) 550 mg tablet Active 550 mg PO THREE TIMES A DAY October 24, 2024 12:00am ubrogepant 100 mg oral table t (20 sources) Start: 03-14-2025 Ubrelvy 100 mg oral tablet Dose : 100 mg = 1 tab(s), Oral, Once, PRN as needed for migraine headache, may repeat dose in 2 hours if needed, # 2 tab(s), 0 Refill(s) Start Date: 03/14/25 Status: Ordered Medication Dispense Status: Completed Quantity: 2.0 Unit: tab(s) Total Allowed Fills: 1 Fills Dispensed: 0 Start: 07-04-2024 Ubrogepant (Ub relvy) 100 MG tablet Take 100 mg by mouth as needed (migraine). 30 tablet 3 07/05/2024 9:23 AM EST 07/04/2024 Active Vitamin D3 50 mcg (2000 intl units) oral capsule (1 source) Start: 03-14-2025 Vitamin D3 50 mcg (2000 intl units) oral capsule Dose : 50 mcg = 1 cap(s), Oral, Daily, 0 Refill(s) Start Date: 03/14/25 Status: Ordered Medication Dispense Status: Completed Total Allowed Fills: 1 Fills Dispensed: 0 zolpidem tartrate 10 mg oral tablet (20 sources) gamma-Aminobutyric Acid-ergic Agonist Start: 11-11-2020 zolpidem 10 mg oral tablet Dose : 10 mg = 1 tab(s), Oral, qHS, 0 Refill(s), 86.4 Start Date: 11/11/20 Status: Ordered Medication Dispense Status: Completed Total Allowed Fills: 1 Fills Dispensed: 0 Start: 04-07-2013 End: 07-01-2013 take 1 tablet [...] / oxyCODONE hydrochloride 5 mg oral tablet (14 sources) Opioid Agonist Start: 07-16-2019 End: 07-19-2019 [...] 12:09am calcium carbonate 1500 mg oral tablet (14 sources) Start: 04-07-2013 End: 07-01-2013 take 1 [...] End: 05-23-2023 gadobutrol (Gadavist) injection 11 mL linaclotide 0.072 mg oral capsule (14 sources) Guanylate Cyclase-C Agonist Start: 12-17-2024 End: 01-28-2025 take 1 capsule by mouth once daily in the morning Linaclotide (Linzess) 72 mcg capsule Discontinued 72 ug PO EVERY MORNING 30 December 17, 2024 12:00am January 28, 2025 11:02am Multivitamin With Minerals 1 EACH tablet (12 sources) Start: 05-22-2020 End: 12-12-2024 take 1 tablet by mouth once daily Multivitamin With Minerals 1 EACH tablet Discontinued 1 NMA PO DAILY May 22, 2020 1:00am December 12, 2024 9:49am Start: 05-22-2020 take 1 tablet by suman th once daily Multivitamin With Minerals 1 EACH tablet Active 1 NMA PO DAILY May 22, 2020 1:00am Olanzapine-Samidorphan (10 sources) Start: 10-24-2024 End: 12-12-2024 Olanzapine-Samidorphan (Lyba lvi) 5-10 mg tablet Discontinued 1 {tbl} PO daily October 24, 2024 12:00am December 12, 2024 9:49am Start: 10-24-2024 Olanzapine-Ozzie idorphan (Lybalvi) 5-10 mg tablet Active 1 {tbl} PO daily October 24, 2024 12:00am OLANZapine-Samidorphan 5-10 MG tablet (20 sources) End: 12-24-2024 OLANZapine-Samidorphan 5-10 MG tablet Take by mouth. 12/24/2024 Discontinued OLANZapine-Samid orphan 5-10 MG tablet Take by mouth. Active OLANZapine-Samid orphan 5-10 MG tablet Take by mouth. 0 Active potassium chloride 10 meq extended release oral capsule (10 sources) Start: 10-24-2024 End: 12-12-2024 take 1 capsule by mouth once daily Potassium Chloride 10 mEq capsule, extended release Discontinued 10 meq PO daily 20 0 October 24, 2024 12:00am December 12, 2024 9:49am predniSONE 20 mg oral tablet (20 sources) [...] Date: 01/17/22 Status: Ordered Start: 07-16-2019 End: 12-12-2024 take 3 tablets by mouth once daily Prednisone 20 mg tablet Discontinued 60 mg PO DAILY 12 October 23, 2024 12:00am December 12, 2024 9:49am Start: 07-16-2019 take 60 mg by mouth once daily Prednisone Active 60 MG PO DAILY July 16, 2019 12:00am QUEtiapine 25 mg oral tablet (16 sources) Atypical Antipsychotic Start: 04-23-2020 End: 10-24-2024 [...] hours. 9 tablet 2 12/15/2022 03/17/2023 Discontinued 72 hr scopolamine 0.0139 mg/hr transdermal system (15 sources) Anticholinergic Start: 11-27-2024 End: 12-11-2024 Scopolamine Base 1 mg over 3 days patch 3 day Discontinued 1 NMA TD Every 3 Days 5 14 0 November 27, 2024 4:19pm December 10, 2024 12:00am December 11, 2024 12:06am Start: 11-04-2024 End: 11-18-2024 Scopolamine Base 1 mg over 3 days patch 3 day Discontinued 1 NMA TD Every 3 Days 5 14 0 November 04, 2024 12:00am November 17, 2024 12:00am November 18, 2024 12:07am sertraline 100 mg oral tablet (16 sources) Serotonin Reuptake Inhibitor Start: 08-12-2019 Sertraline [...] as needed for migraine (may repeat x1). October repeat dose once in 2 hours if no relief. Do not exceed 2 doses in 24 hours. 9 tablet 2 10/06/2022 12/15/2022 Discontinued (Ineffective) tiZANidine 4 mg oral capsule (20 sources) Central alpha-2 Adrenergic Agonist Start: 10-24-2024 End: 12-12-2024 Tizanidine (Zanaflex) 4 mg capsule Discontinued 20 mg PO AT BEDTIME October 24, 2024 12:00am December 12, 2024 9:50am Start: 03-22-2021 take 1 tablet by suman th at bedtime Tizanidine 4 mg tablet Active 4 mg PO AT BEDTIME December 12, 2024 12:00am topiramate 50 mg oral tablet (8 sources) [...] completed) traZODone hydrochloride 150 mg oral tablet (14 sources) Serotonin Reuptake Inhibitor Start: 07-16-2019 End: 10-24-2024 take 1 tablet by mouth at bedtime Trazodone 150 MG tablet Discontinued 150 mg PO AT BEDTIME July 16, 2019 1:00am October 24, 2024 11:11am Vitamin D (10 sources) Start: 10-24-2024 End: 12-12-2024 vitamin D Discontinued PO October 24, 2024 12:00am December 12, 2024 9:51am Start: 10-24-2024 vitamin D Acti ve PO October 24, 2024 12:00am Problems Active Problems Problem Classification Problem Date Documented Da te Episodic/Chronic Abdominal pain (20 sources) Generalized abdominal pain; Translations: [Abdominal pain] Onset: 5 10-24-2024 Episodic Anxiety disorders (9 sources) Anxiety 11-19-2019 Chronic Attention-deficit, conduct, and disruptive behavior disorders (20 sources) Attention deficit hyperactivity disorder; Translations: [Attention-deficit hyperactivity disorder, unspecified type] Onset: 2 12-10-2013 Chronic Deficiency and other anemia (1 source) Other hemoglobinopathies; 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 Disorders of teeth and jaw (1 source) Right temporomandibular joint pain dysfunction syndrome; Translations: [Arthralgia of right temporomandibular joint] Episodic Esophageal disorders (13 sources) Gastroesophageal reflux disease without esophagitis; Translations: [Laryngopharyngeal reflux] Onset: 5 12-03-2020 Chronic Genitourinary symptoms and ill-defined conditions (20 sources) Urinary incontinence; Translations: [Unspecified urinary incontinence] Onset: 4 03-22-2022 Chronic Genitourinary symptoms and ill-defined conditions (1 source) Dysuria; Translations: [Dysuria] 12-12-2023 Episodic Headache; including migraine (20 sources) Chronic intractable migraine without aura; Translations: [Chronic migraine without aura, intractable, without status migrainosus] Onset: 5 Chronic Headache; including migraine (1 source) Medication overuse headache; Translations: [Drug-induced headache, not elsewhere classified, not intractable] Episodic Inflammatory diseases of female pelvic organs (11 sources) Vaginitis; Translations: [Acute vaginitis] 10-23-2024 Episodic Mood disorders (20 sources) Bipolar I disorder; Translations: [Bipolar disorder] Onset: 7 07-20-2020 Chronic Mycoses (5 sources) Candidiasis of mouth; Translations: [Candidal stomatitis] Onset: 5 11-20-2024 Episodic Other acquired deformities (20 sources) Postural kyphosis; Translations: [Postural kyphosis, site unspecified] Onset: 0 03-22-2022 Chronic Other acquired deformities (1 source) Scoliosis deformity of spine; Translations: [Scoliosis, unspecified] 02-07-2025 Chronic Other acquired deformities (1 source) Leg length inequality; Translations: [Unequal limb length (acquired), unspecified site] 02-07-2025 Episodic Other circulatory disease (2 sources) Clearing throat - hawking; Translations: [Other specified symptoms and signs involving the circulatory and respiratory systems] 11-20-2024 Episodic Other circulatory disease (2 sources) Other specified symptoms and signs involving the circulatory and respiratory systems; Translations: [Other specified symptoms and signs involving the circulatory and respiratory systems] Onset: 5 Episodic Other disorders of stomach and duodenum (1 source) Gastroparesis; Translations: [Gastroparesis] Onset: 5 Episodic Other female genital disorders (1 source) Pruritus of vagina; Translations: [Other specified noninflammatory disorders of vagina] 12-13-2023 Episodic Other gastrointestinal disorders (20 sources) Irritable bowel syndrome; Translations: [Irritable bowel syndrome without diarrhea] 05-28-2020 Chronic Comment on above: ON MED Other gastrointestinal disorders (1 source) Irritable bowel syndrome without diarrhea; Translations: [Irritable bowel syndrome, unspecified] Onset: 5 Chronic Other gastrointestinal disorders (2 sources) Constipation alternates with diarrhea; Translations: [Alternating constipation and diarrhea] Episodic Other gastrointestinal disorders (4 sources) Personal history of other diseases of the digestive system; Translations: [History of gastritis] Episodic Other gastrointestinal disorders (20 sources) Diarrhea; Translations: [Diarrhea, unspecified] 10-24-2024 Episodic Other gastrointestinal disorders (4 sources) Constipation; Translations: [Constipation, unspecified] 01-28-2025 Episodic Other gastrointestinal disorders (2 sources) Diarrhea, unspecified; Translations: [Diarrhea, unspecified] Onset: 5 Episodic Other lower respiratory disease (1 source) Cough; Translations: [Cough, unspecified] Onset: 2 Episodic Other lower respiratory disease (2 sources) Wheezing; Translations: [Wheezing] Onset: 2 Episodic Other nutritional; endocrine; and metabolic disorders (20 sources) Obesity; Translations: [Obesity, unspecified] Onset: 2 03-22-2022 Chronic Other nutritional; endocrine; and metabolic disorders (4 sources) Body mass index 30+ - obesity; Translations: [Obesity, unspecified] 02-07-2025 Chronic Other nutritional; endocrine; and metabolic disorders (1 source) Weight increased; Translations: [Abnormal weight gain] 10-18-2024 Episodic Other screening for suspected conditions (not mental disorders or infectious disease) (1 source) Cancer cervix screening status; Translations: [Encounter for screening for malignant neoplasm of cervix] 12-13-2023 Episodic Other upper respiratory disease (2 sources) Pain in throat; Translations: [Pain in throat] 11-20-2024 Episodic Other upper respiratory disease (2 sources) Pain in throat; Translations: [Pain in throat] Onset: 5 Episodic Screening and history of mental health [...] on above: at L5 Superficial injury; contusion (14 sources) Contusion of right hand; Translations: [Contusion [...] forms of actinomycosis] Onset: 12-13-2007 03-22-2022 Episodic Contraceptive and procreative management (11 sources) Contraception ; Translations: [Encounter for surveillance of injectable contraceptive] Onset: 08-22-2024 10-06-2022 Episodic Hemorrhage during ; abruptio placenta; placenta [...] of the skin] Onset: 03-12-2009 03-22-2022 Episodic Other upper respiratory infections (13 sources) Acute sinusitis, unspecified; Translations: [Sore throat symptom] Onset: 01-12-2022 Episodic Sexually transmitted infections (not HIV or [...] subject; Translations: [History of chronic fatigue] Unclassified (2 sources) Onset: 11-20-2024 11-20-2024 Viral infection (20 sources) Verruca vulgaris; Translations: [Viral wart, unspecified] Onset: 06-27-2008 03-22-2022 Episodic Results Test Name Value Interpretation Reference Range Facility L/S Spine Bending Flex/[place] 02-07-2025 L/S Spine Bending Flex/Ext [facility] [address] [place] [address] [id number] L/S Spine Bending Flex/Ext MR#: [id number] Acct: [id number] Name: CARLOS GIRON NELLY Rep #: [id number] : 1990 F 34 From: Latrell Andrew MD PCP: Dr. Nataliya Gomez MD Status: DEP AMB Study: L/S Spine Bending Flex/Ext Date of Exam: 02/07 Exam# [id number] Ordering Dr: Shailesh Schneider MD EXAM: XR Lumbosacral Spine Flexion/Extension Only, 2 or 3 Views CLINICAL INDICATION: BACK PAIN TECHNIQUE: Lateral flexion/extension views of the lumbar spine and sacrum. COMPARISON: No relevant prior studies available. FINDINGS: VERTEBRAE: Degenerative facet arthropathy throughout the lumbar spine, most prominent in the lower lumbar spine. Normal sagittal alignment. No acute fracture or significant dynamic instability. SACRUM/COCCYX: Unremarkable as visualized. No acute fracture. DISC SPACES: Degenerative disc disease throughout the lumbar spine. SOFT TISSUES: Unremarkable. RAD/L/S Spine Bending Flex/Ext IMPRESSION: 1. No acute fracture or significant dynamic instability. 2. If symptoms persist, further evaluation with MRI is recommended. 3. Degenerative changes lumbar spine as described. Reading Location: [id number] CC: Dr. Nataliya Gomez MD; Dr. Shailesh Schneider MD End Packer: Signed Normal [facility] Orthopedic Visit Reporton Orthopedic Visit Report [facility] [address] [place] [address] OFFICE VISIT Date of Service: 02/07/25 MR#: [id number] Acct: [id number] Name: CARLOS GIRON Rep #: [id number] : 1990 Provider: Dr. Shailesh Schneider MD Age/Sex: 34/F Location: [facility] Status: Signed Intake Vital Signs 12/16/24 06:08 02/07/25 08:03 Height 5 ft 6 in 5 ft 6 in Weight: 230 lb BMI 37.1 Intake Visit Reasons: LUMBAR SPINE Chief Complaint: lumbar spine pain Is patient in pain?: Yes (lumbar spine) Pain scale (1-10): 8 Allergies ibuprofen Adverse Reaction (Intermediate, Verified 02/07/25 08:05) Hives codeine Adverse Reaction (Verified 02/07/25 08:05) Upset Stomach hydrocodone bitartrate (From Vicodin) Adverse Reaction (Verified 02/07/25 08:05) Upset Stomach Medications ???Medication ???Instructions ???Recorded ???Confirmed ???Type biotin 2,500 mcg chewable tablet 2,500 mcg PO DAILY 10/24/24 History dextroamphetamine-amphet amine 30 30 mg PO QDAY 10/24/24 02/07/25 Hi story mg tablet (Adderall) gabapentin 600 mg tablet 800 mg PO TID 10/24/24 02/07/25 Hi story lamotrigine 150 mg tablet 100 mg PO QHS 10/24/24 02/07/25 Hi story omeprazole 40 mg capsule,delayed 40 mg PO QDAY 10/24/24 02/07/25 Hi story release promethazine 12.5 mg tablet 12.5 mg PO Q6H PRN nausea and 10/0402/07/25 History vomiting rifaximin 550 mg tablet (Xifaxan) 550 mg PO TID 10/24/24 02/07/25 H istory zolpidem 10 mg tablet (Ambien) 10 mg PO QHS 10/24/24 02/07/25 His tory prochlorperazine 25 mg rectal 25 mg [place] BID PRN nausea and 02/07/25 Rx suppository (Compazine) vomiting #12 ea albuterol sulfate 90 mcg/actuation 2 puff inhalation 4X/DAY PRN PRN 12/12/24 02/07/25 History aerosol inhaler shortness of breath or wheezing atogepant 60 mg tablet (Qulipta) 60 mg PO DAILY 12/12/24 02/07/25 H istory cholecalciferol (vitamin D3) 50 50 mcg PO DAILY 12/12/24 02/07/25 History mcg (2,000 unit) tablet (Vitamin D3) drospirenone 3 mg-ethinyl 1 tab PO DAILY 12/12/24 02/07/25 H istory estradiol 0.03 mg tablet (Zainab) oxybutynin chloride 10 mg 10 mg PO DAILY 12/12/24 02/07/25 H istory tablet,extended release 24 hr tizanidine 4 mg tablet 4 mg PO QHS 12/12/24 02/07/25 Hist ory dicyclomine 20 mg tablet 20 mg PO TID #90 tabs 01/02/2510/27 Rx magnesium oxide 1,000 mg (2 x 500 mg magnesium) PO 01/28/25 02/07/25 Rx QHS 1 month #60 tabs cholestyramine (with sugar) 4 gram 4 g PO BID #378 GMS 01/30/2510/27 Rx oral powder PFSH Medical History (Updated 02/07/25 @ 08:[address] Shailesh Schneider MD) Lumbar stenosis Lumbar disc herniation Leg length discrepancy Scoliosis Lumbar degenerative disc disease Obesity (BMI 30-39.9) ADHD Marijuana use Arthritis Fatty liver Easy bruising Leg cramps Migraine headache Gastric reflux Shortness of breath on exertion Smoker History of pain when walking History of echocardiogram IBS (irritable bowel syndrome) Bipolar disorder Low back pain Depression Anxiety Surgical History History of History of appendectomy Hx of knee surgery Social History housing: apartment current occupational status: disabled Smoking Status: Current every day smoker tobacco type: cigarettes alcohol intake: never substance use type: marijuana what type of physical activity do you participate in: walking HPI LUMBAR SPINE Details: This documentation accurately reflects the service provided and the decisions made by me, Dr. Shailesh Schneider MD 02/07/25 3003. Part of today???s visit was documented by Marley Connors RN, acting as scribe. CARLOS GIRON is a 34 year old F here today for lumbar spine pain. She reports back pain for at least 7 years. She complains of bilateral low back pain that extends down the right posterior leg down to the ankle. She also reports numbness and tingling into her bilateral legs. She also reports muscle spasms into her calf in the left leg. She has done PT and reports it made the pain worse. She did see Dr. Wall in the past but it has been a few years since she has seen him. She did get injections at that time but reports they were not helpful. She states her pcp prescribed a short course of pain medication that was helpful. She denies previous injury or surgery. She is able to walk long distances but reports it is very painful. Sitting for long periods also exacerbates her pain. She states at times she has to lean on the shopping cart at the grocery store. She reports weakness in her legs and arms. She does not have diabetes. She does not have heart or lung problems. She does g (more content not included)... Normal [facility] Gastroenterology Visit Repor ton 01-28-2025 Gastroenterology Visit Report [facility] [address] [place] [address] OFFICE VISIT Date of Service: 01/28/25 MR#: [id number] Acct: [id number] Name: CARLOS GIRON Rep #: [id number] : 1990 Provider: Moses Montlavo DO Age/Sex: 34/F Location: [facility] Status: Signed Intake Vital Signs 10/23/24 12:56 12/16/24 06:08 Height 5 ft 6 in 5 ft 6 in Intake Visit Reasons: 3 M FU Allergies ibuprofen Adverse Reaction (Intermediate, Verified 12/16/24 06:06) Hives codeine Adverse Reaction (Verified 12/16/24 06:06) Upset Stomach hydrocodone bitartrate (From Vicodin) Adverse Reaction (Verified 12/16/24 06:06) Upset Stomach Medications ???Medication ???Instructions ???Recorded ???Confirmed ???Type biotin 2,500 mcg chewable tablet 2,500 mcg PO DAILY 10/24/24 History dextroamphetamine-amphet amine 30 30 mg PO QDAY 10/24/24 01/28/25 Hi story mg tablet (Adderall) gabapentin 600 mg tablet 800 mg PO TID 10/24/24 01/28/25 Hi story lamotrigine 150 mg tablet 100 mg PO QHS 10/24/24 01/28/25 Hi story omeprazole 40 mg capsule,delayed 40 mg PO QDAY 10/24/24 01/28/25 Hi story release promethazine 12.5 mg tablet 12.5 mg PO Q6H PRN nausea and 10/0401/28/25 History vomiting rifaximin 550 mg tablet (Xifaxan) 550 mg PO TID 10/24/24 01/28/25 H istory zolpidem 10 mg tablet (Ambien) 10 mg PO QHS 10/24/24 01/28/25 His tory prochlorperazine maleate 10 mg 10 mg PO Q8H PRN nausea and 01/28/25 Rx tablet (Compazine) vomiting #30 tabs prochlorperazine 25 mg rectal 25 mg IL BID PRN nausea and 01/28/25 Rx suppository (Compazine) vomiting #12 ea albuterol sulfate 90 mcg/actuation 2 puff inhalation 4X/DAY PRN PRN 12/12/24 01/28/25 History aerosol inhaler shortness of breath or wheezing atogepant 60 mg tablet (Qulipta) 60 mg PO DAILY 12/12/24 01/28/25 H istory cholecalciferol (vitamin D3) 50 50 mcg PO DAILY 12/12/24 01/28/25 History mcg (2,000 unit) tablet (Vitamin D3) drospirenone 3 mg-ethinyl 1 tab PO DAILY 12/12/24 01/28/25 H istory estradiol 0.03 mg tablet (Zainab) oxybutynin chloride 10 mg 10 mg PO DAILY 12/12/24 01/28/25 H istory tablet,extended release 24 hr tizanidine 4 mg tablet 4 mg PO QHS 12/12/24 01/28/25 Hist ory dicyclomine 20 mg tablet 20 mg PO TID #90 tabs 01/02/25 Rx cholestyramine (with sugar) 4 gram 4 g PO BID #378 grams 01/13/25 0 01/28/25 Rx oral powder magnesium oxide 1,000 mg (2 x 500 mg magnesium) PO 01/28/25 01/28/25 Rx QHS 1 month #60 tabs PFSH Medical History ADHD Marijuana use Arthritis Fatty liver Easy bruising Leg cramps Migraine headache Gastric reflux Shortness of breath on exertion Smoker History of pain when walking History of echocardiogram IBS (irritable bowel syndrome) Bipolar disorder Low back pain Depression Anxiety Surgical History History of History of appendectomy Hx of knee surgery Social History housing: apartment current occupational status: disabled Smoking Status: Current every day smoker tobacco type: cigarettes alcohol intake: never substance use type: marijuana what type of physical activity do you participate in: walking HPI HPI Details: CARLOS GIRON, is a 34 F who presents to the office today for follow up. *BGI established 5.22.25 pt reports long history [...] take for the prep made her sick. US and elastography 6. hepatic measurement 16cm with fatty infiltration, stiffness measures 7.4kPa compatible with F3-F4 Metavir score. abd/pelvis CT 6.25 Fatty infiltration of the liver. EGD 7.25 Z-line irregular, 40 cm from the incisors. Biopsied. Gastroparesis, idiopathic etiology. No gross lesions in the duodenal bulb. GET 8.13.25 WNL OV 8.26.25 pt reports worsening symptoms of N/V, alternating diarrhea and constipation, abd pain, gas/bloating, and HB. Pt reports that she was taking Linzess, but has stopped it due to worsening constipation. ROS Const Constitutional: Positive for fatigue, headache(s) and weight change; No fever(s) ENT ENT: Positive for headache(s); No difficulty swallowing Gastro GI: Positive for abdominal pain, bloating, change in bowel habits, constipation, diarrhea, heartburn, excessive flatus, nausea/dyspepsia and vomiting; No (more content not included)... Normal [facility] Progress Noteon 01-22-2025 Progress Note Chief Complaint Patient presents with Follow-up 3 month follow up, med check for [place], skipping placebos Patient was identified and seen today via Telehealth by agreement and consent. I used the following Telehealth technology: Audio and video capabilities. Patient location: Patient Location: Home. This patient encounter is appropriate and reasonable under the circumstances: other . The patient has been advised of [...] stated that they are currently in the [facility]. If the patient is a minor, permission has been obtained by the parent or guardian for the patient to receive medical care at this visit. HPI Doing well No periods, no cramping No more weight gain ROS: Constitutional - denies fevers or chills Resp - denies CP or SOB CV - denies CP GI - denies nausea, vomiting - denies frequency and dysuria Medical History[1] Surgical History[2] Allergies[3] @MEDCMED@ 1.676 m (5' 6) Wt 109 kg (240 lb) BMI 38.74 kg/m? PE: Well developed, well nourished Normocephalic, atraumatic Neuro - Pt A&Ox3, NAD Psych - normal affect and behavior Carlos was seen today for follow-up. Diagnoses and all orders for this visit: Encounter for surveillance of contraceptive pills (Primary) Doing well Cont OCP Follow up for annual. [1] Past Medical History: Diagnosis Date ADHD (attention deficit hyperactivity disorder) Anxiety 2008 Back pain Bipolar 2 disorder (CMS/HCC) (HCC) Cluster headache Depression 2004 Headache 2021 Headache, tension-type 2021 Insomnia 2004 Migraine 2021 Peripheral neuropathy Sleep apnea 2006 [2] Past Surgical History: Procedure Laterality Date ANTERIOR CRUCIATE LIGAMENT REPAIR APPENDECTOMY APPENDECTOMY SECTION (HISTORICAL) [3] Allergies Allergen Reactions Codeine Nausea And Vomiting Other reaction(s): GI Upset Hydrocodone-Acetaminophe n Nausea And Vomiting Other reaction(s): GI Upset Ibuprofen Other reaction(s): GI Upset Normal [facility] Gastric Emptying Studyon Gastric Emptying Study [facility] Imaging Services [facility] [place] [address] Gastric Emptying Study MR#: [id number] Acct: [id number] Name: CARLOS GIRON Rep #: [id number] : 1990 F 34 From: Ten rodriguez MD PCP: Dr. Nataliya Gomez MD Status: REG CLI Study: Gastric Emptying Study Date of Exam: 01/15/25 Exam# [id number] Ordering Dr: Moses Montalvo DO PROCEDURE: GASTRIC EMPTYING STUDY 01/15/2025 REASON FOR EXAM: GASTROPARESIS COMPARISON: None TECHNIQUE: The patient ingested a standard meal of oatmeal,, and water. There was no vomiting postprandially. Anterior and posterior planar images of the upper abdomen were obtained for 1 minute immediately following the meal at 1h, 2h and 4h if more than 10% of the activity persisted within the stomach. Regions of interest were drawn, and a geometric mean was used to calculate a [id number]-nkknq. RADIOPHARMACEUTICAL: Sulfur colloid DOSE 1.2mCi FINDINGS: Percent activity remaining in stomach: 1 hour 65 % (normal 37-90%) NM/Gastric Emptying Study IMPRESSION: Normal gastric emptying examination. Reading Location: [id number] CC: Dr. Nataliya Gomez MD; Moses Montalvo DO End Packer: Signed Normal [facility] FRIEDA CASCADE(FRIEDA,IFA W/RFL AN D REFL 11 AB CASCADE)on 01-05-2025 FRIEDA SCREEN, IFA Positive Abnormal NEGATIVE [facility] Comment on above: Result Comment: FRIEDA IFA is a first line screen for detecting the presence of up to approximately 150 autoantibodies in various autoimmune diseases. A positive FRIEDA IFA result is suggestive of autoimmune disease and reflexes to titer, pattern and the 3 tiered Multiplex 11 Antibody [place]. Testing in the [place] stops at the first positive result, and does not preclude additional positive results. Further laboratory testing may be considered if clinically indicated. For additional information, please refer to http://education.Visual.ly/faq/GYS543 (This link is being provided for informational/ educational purposes only.) Performed By: #### 9 4959, 41729 #### [facility]/[place] [address] [place], [place] Mortgage Broker: Skyler Ramos M.D.,PhD #### 23250, 8475, %53234, 23247, 8472, 498, 1759, %IN9, 7083, %77386, %99834 #### [facility] [address], [address] [place], [place] [address] Mortgage Broker: Andres Daniel MD #### 20895 #### [facility], [address] [place] [address] Mortgage Broker: Allison Delong MD,PhD,[place] ANCA SCREEN WITH MPO AND PR3 WITH REFLEX TO ANCA TITERon 01-05-2025 ANCA SCREEN Negative Normal Negative [facility] Comment on above: Result Comment: ANCA screen uses indirect immunofluorescence to detect antibodies to neutrophil cytoplasmic antigens. A positive screen reflexes to titer and pattern. Patterns include cytoplasmic (c-ANCA) and perinuclear (p-ANCA) both of which are associated with vasculitis, and atypical p-ANCA which is associated with inflammatory bowel disease and other disorders. Performed By: #### 9 0349, 35706 #### [facility]/[address] [place], [place] Mortgage Broker: Skyler Ramos M.D.,PhD #### 39561, 8475, %98386, 70085, 8472, 498, 1759, %IN9, 7083, %47736, %05512 #### [facility] [address], [address] [place] [address] Mortgage Broker: Andres Daniel MD #### 89312 #### [facility], [address] [place] [address] Mortgage Broker: Allison Delong MD,PhD,[place] MYELOPEROXIDASE ANTIBODY <1.0 Normal <1.0 [facility] Comment on above: Result Comment: Value Interpretation <1.0 AI: No Antibody Detected >or=1.0 AI: Antibody Detected Autoantibodies to myeloperoxidase (MPO) are commonly associated with the following small-vessel vasculitides: microscopic polyangiitis, polyarteritis nodosa, Churg-Truman syndrome, necrotizing and crescentic glomerulonephritis and occasionally granulomatosis with polyangiitis (GPA, Danielle's). The perinuclear IFA pattern, (p-ANCA) is based largely on autoantibody to myeloperoxidase which serves as the primary antigen. These autoantibodies are present in active disease. Performed By: #### 9 5669, 50517 #### [facility]/[place] [address] [facility] Dr [place], [place] Mortgage Broker: Skyler Ramos M.D.,PhD #### 18608, 8475, %19750, 30038, 8472, 498, 1759, %IN9, 7083, %63152, %18447 #### [facility] [address], [address] [place] [address] Mortgage Broker: Andres Daniel MD #### 45229 #### [facility], [address] [place] [address] Mortgage Broker: Allison Delong MD,PhD,MICH PROTEINASE-3 ANTIBODY <1.0 Normal <1.0 [facility] Comment on above: Result Comment: Value Interpretation <1.0 AI: No Antibody Detected >or=1.0 AI: Antibody Detected Autoantibodies to proteinase-3 (IL-3) are accepted as characteristic for granulomatosis with polyangiitis (GPA, Danielle's), and are detectable in 95% of the histologically proven cases. The cytoplasmic IFA pattern, (c-ANCA), is based largely on autoantibody to IL-3 which serves as the primary antigen. These autoantibodies are present in active disease. Performed By: #### 9 4439, 91767 #### [facility]/[place] [address] [facility] [address] [place] Mortgage Broker: Skyler Ramos M.D.,PhD #### 67311, 8475, %12296, 66156, 8472, 498, 1759, %IN9, 7083, %05796, %33522 #### [facility] [address], [address] [place] [address] Mortgage Broker: Andres Daniel MD #### 45050 #### [facility], [address] [place] [address] Mortgage Broker: Allison Delong MD,PhD,[place]ICH ANTINUCLEAR ANTIBODIES TITER AND PATTERNon 01-05-2025 FRIEDA PATTERN Nuclear, Few Nuclear Dots Abnormal [facility] Comment on above: Result Comment: Nucl ear dots (1-6 in number per cell) pattern is seen in Sjogren's syndrome, systemic lupus erythematosus (SLE), systemic sclerosis (scleroderma), polymyositis, and asymptomatic individuals. AC-7: Few Nuclear Dots International Consensus on FRIEDA Patterns (https://doi.org/10.1515/oufn-8212-2096) Performed By: #### 9 0349, 16631 #### [facility]/[place] [address] [facility] [place] Mortgage Broker: Skyler Ramos M.D.,PhD #### 51900, 8475, %61339, 28571, 8472, 498, 1759, %IN9, 7083, %47324, %67338 #### [facility] [address], [address] [place] [address] Mortgage Broker: Andres Daniel MD #### 36949 #### [facility], [address] [place] [address] Mortgage Broker: Allison Delong MD,PhD,MICH FRIEDA TITER 1:40 High [facility] Comment on above: Result Comment: A lo w level FRIEDA titer may be present in pre-clinical autoimmune diseases and normal individuals. Reference Range <1:40 Negative 1:40-1:80 Low Antibody Level >1:80 Elevated Antibody Level Performed By: #### 9 0349, 62468 #### [facility]/[place] [address] [facility] [place] Mortgage Broker: Skyler Ramos M.D.,PhD #### 95649, 8475, %19956, 36046, 8472, 498, 1759, %IN9, 7083, %61233, %29378 #### [facility] [address], [address] [place] [address] Mortgage Broker: Andres Daniel MD #### 40799 #### [facility], [address] [place] [address] Mortgage Broker: Allison Delong MD,PhD,MICH CBC (H/H, RBC, INDICES, WBC, PLT)on 01-05-2025 Erythrocyte distribution width (RBC) [Ratio] 11.8 % Normal 11.0-15.0 [facility] Comment on above: Performed By: #### 9 0349, 33026 #### [facility]/[address] [place] Mortgage Broker: Skyler Ramos M.D.,PhD #### 55117, 8475, %42728, 27461, 8472, 498, 1759, %IN9, 7083, %98272, %96674 #### [facility] [address], [address] [place] [address] Mortgage Broker: Andres Daniel MD #### 66407 #### [facility], [address] [place] [address] Mortgage Broker: Allison Delong MD,PhD,MICH Hematocrit (Bld) [Volume fraction] 43.5 % Normal 35.0-45.0 [facility] Comment on above: Performed By: #### 9 0349, 86366 #### [facility]/[address] [place] Mortgage Broker: Skyler Ramos M.D.,PhD #### 66223, 8475, %29228, 48398, 8472, 498, 1759, %IN9, 7083, %56416, %24292 #### [facility] [place] [address] Mortgage Broker: Andres Daniel MD #### 70892 #### [facility]/[place] [phone] Mortgage Broker: Allison Delong MD,PhD,MICH Hemoglobin (Bld) [Mass/Vol] 14.1 g/dL Normal 11.7-15.5 [facility] Comment on above: Performed By: #### 9 0349, 90347 #### [facility]/[address] [place] Mortgage Broker: Skyler Ramos M.D.,PhD #### 37528, 8475, %62604, 61763, 8472, 498, 1759, %IN9, 7083, %82631, %66473 #### [facility] [place] [address] Mortgage Broker: Andres Daniel MD #### 59515 #### [facility]/[address] Mortgage Broker: Allison Delong MD,PhD,MICH MCH (RBC) [Entitic mass] 32.3 pg Normal 27.0-33.0 [facility] Comment on above: Performed By: #### 9 0389, 25022 #### [facility]/[address] [place] Mortgage Broker: Skyler Ramos M.D.,PhD #### 23758, 8475, %16349, 47593, 8472, 498, 1759, %IN9, 7083, %41321, %26681 #### [facility] [address], [address] [place], [place] [address] Mortgage Broker: Andres Daniel MD #### 79615 #### [facility], [address] [place] [address] Mortgage Broker: Allison Delong MD,PhD,MICH MCHC (RBC) [Mass/Vol] 32.4 g/dL Normal 32.0-36.[address] [facility] Comment on above: Result Comment: For adults, a slight decrease in the calculated MCHC value (in the range of 30 to 32 g/dL) is most likely not clinically significant; however, it should be interpreted with caution in correlation with other red cell parameters and the patient's clinical condition. Performed By: #### 9 0819, 83565 #### [facility]/[address] [place] Mortgage Broker: Skyler Ramos M.D.,PhD #### 42778, 8475, %03636, 50488, 8472, 498, 1759, %IN9, 7083, %56843, %23468 #### [facility] [address], [address] [place] [address] Mortgage Broker: Andres Daniel MD #### 52342 #### [facility], [address] [place] [address] Mortgage Broker: Allison Delong MD,PhD,MICH MCV (RBC) [Entitic vol] 99.8 fL Normal 80.0-100.0 [facility] Comment on above: Performed By: #### 9 6909, 46606 #### [facility]/[place] [address] [place] Mortgage Broker: Skyler Ramos M.D.,PhD #### 97948, 8475, %42239, 79184, 8472, 498, 1759, %IN9, 7083, %78358, %89122 #### [facility] [place] [address], [address] [place] [address] Mortgage Broker: Andres Daniel MD #### 07285 #### [facility], [facility] [place] [address] Mortgage Broker: Allison Delong MD,PhD,MICH Platelet mean volume (Bld) [Entitic vol] 9.4 fL Normal 7.5-12.5 [facility] Comment on above: Performed By: #### 9 0349, 96997 #### [facility]/[place] [address] [facility] [place] Mortgage Broker: Skyler Ramos M.D.,PhD #### 77004, 8475, %91770, 13914, 8472, 498, 1759, %IN9, 7083, %29532, %03040 #### [facility] of [address] , [address] [place], [place] [address] Mortgage Broker: Andres Daniel MD #### 69018 #### [facility], [address] [place] [address] Mortgage Broker: Allison Delong MD,PhD,MICH Platelets (Bld) [#/Vol] 230 10*3/uL Normal 140-400 [facility] Comment on above: Performed By: #### 9 0349, 34928 #### [facility] [address] [facility] [place] Mortgage Broker: Skyler Ramos M.D.,PhD #### 72629, 8475, %67695, 21424, 8472, 498, 1759, %IN9, 7083, %98304, %24150 #### [facility] of [place] [address], [address] [place] [address] Mortgage Broker: Andres Daniel MD #### 77643 #### [facility], [address] [place] [address] Mortgage Broker: Allison Delong MD,PhD,MICH RBC (d) [#/Vol] 4.36 10*6/uL Normal 3.80-5.10 [facility] Comment on above: Performed By: #### 9 0349, 06045 #### [facility]/[address] [place] Mortgage Broker: Skyler Ramos M.D.,PhD #### 01054, 8475, %72440, 19153, 8472, 498, 1759, %IN9, 7083, %88029, %63199 #### [facility] [address], [address] [place] [address] Mortgage Broker: Andres Daniel MD #### 56656 #### [facility], [address] [place] [address] Mortgage Broker: Allison Delong MD,PhD,MICH WBC ([facility]) [#/Vol] 7.3 10*3/uL Normal 3.8-10.8 [facility] Comment on above: Performed By: #### 9 0349, 48999 #### [facility]/[address] [place] Mortgage Broker: Skyler Ramos M.D.,PhD #### 09088, 8475, %13917, 13137, 8472, 498, 1759, %IN9, 7083, %92539, %33490 #### [facility] [place] [address] [address] , [address] [place] [address] Mortgage Broker: Andres Daniel MD #### 50414 #### [facility], [address] [place] [phone] Mortgage Broker: Allison Delong MD,PhD,MICH HEPATITIS B SURFACE AB IMMUN ITY, QNon 01-05-2025 HEPATITIS B SURFACE AB IMMUNITY, QN <5 Low > OR = 10 [facility] Comment on above: Result Comment: Patient does not have immunity to hepatitis B virus. For additional information, please refer to http://Endosee.The Chapar.Greysox/faq/MLO667 (This link is being provided for informational/ educational purposes only). Performed By: #### 9 0349, 39272 #### [facility]/[place] [address] [facility] [place] Mortgage Broker: Skyler Ramos M.D.,PhD #### 77042, 8475, %09164, 70341, 8472, 498, 1759, %IN9, 7083, %55185, %11930 #### [facility] [address], [address] [place] [address] Mortgage Broker: Andres Daniel MD #### 50890 #### [facility], [address] [place], [place] [address] Mortgage Broker: Allison Delong MD,PhD,MICH HEPATITIS B SURFACE ANTIGEN W/REFL CONFIRMon 01-05-2025 HEPATITIS B SURFACE ANTIGEN Non-Reactive Normal NON-REACTIV E [facility] Comment on above: Result Comment: For additional information, please refer to http://Endosee.The Chapar.Greysox/faq/YRM103 (This link is being provided for informational/ educational purposes only.) Performed By: #### 9 0349, 15004 #### [facility]/[place] [address] [facility] [place] Mortgage Broker: Skyler Ramos M.D.,PhD #### 06108, 8475, %73155, 94475, 8472, 498, 1759, %IN9, 7083, %22341, %29239 #### [facility] [address] , [address] [place] [address] Mortgage Broker: Andres Daniel MD #### 12239 #### [facility], [address] [place] [address] Mortgage Broker: Allison Delong MD,PhD,MICH HEPATITIS C AB W/REFL TO HCV RNA, QN, PCRon 01-05-2025 HEPATITIS C ANTIBODY Non-Reactive Normal NON-JOY CTIV E [facility] Comment on above: Result Comment: HCV antibody was non-reactive. There is no laboratory evidence of HCV infection. In most cases, no further action is required. However, if recent HCV exposure is suspected, a test for HCV RNA (test code 21564) is suggested. For additional information please refer to http://education.Rallyhood/faq/SEP45w1 (This link is being provided for informational/ educational purposes only.) Performed By: #### 9 0349, 61201 #### [facility] [address] [facility] [place], [place] Mortgage Broker: Skyler Ramos M.D.,PhD #### 28237, 8475, %11264, 29429, 8472, 498, 1759, %IN9, 7083, %86489, %35967 #### [facility] [address], [address] [place] [address] Mortgage Broker: Andres Daniel MD #### 93265 #### [facility]/[place] [facility], [address] [place] [address] Mortgage Broker: Allison Delong MD,PhD,MICH HIV 1/2 ANTIGEN/ANTIBODY,FOU RTH GENERATION W/RFLon 01-05-2025 HIV AG/AB, 4TH GEN Non-Reactive Normal NON-REACT IV E [facility] Comment on above: Performed By: #### 9 0349, 55191 #### [facility]/[place] [address] [facility] [place] Mortgage Broker: Skyler Ramos M.D.,PhD #### 80458, 8475, %72210, 20093, 8472, 498, 1759, %IN9, 7083, %05823, %35651 #### [facility] [address] [facility], [address] [place] [address] Mortgage Broker: Andres Daniel MD #### 48533 #### [facility], [address] [place] [address] Mortgage Broker: Allison Delong MD,PhD,MICH HIV FINAL INTERPRETATION Normal [facility] Comment on above: Result Comment: HIV Negative HIV-1 antigen and HIV-1/HIV-2 antibodies were not detected. There is no laboratory evidence of HIV infection. Performed By: #### 9 0349, 80542 #### [facility]/[place] [address] [facility] [place] Mortgage Broker: Skyler Ramos M.D.,PhD #### 09244, 8475, %76209, 73234, 8472, 498, 1759, %IN9, 7083, %23877, %60990 #### [facility] [address], [address] [place] [address] Mortgage Broker: Andres Daniel MD #### 45441 #### [facility], [address] [facility] [place] Mortgage Broker: Allison Delong MD,PhD,MICH IMMUNOGLOBULINSon 01-05-2025 IMMUNOGLOBULIN A 86 mg/dL Normal 47-310 [facility] Comment on above: Performed By: #### 9 0349, 74870 #### [facility]/[address] [place], [place] Mortgage Broker: Skyler Ramos M.D.,PhD #### 24159, 8475, %72631, 53796, 8472, 498, 1759, %IN9, 7083, %30303, %48900 #### [facility] of [place] [address] [place] [address] Mortgage Broker: Andres Daniel MD #### 68413 #### [facility], [address] [place] [address] Mortgage Broker: Allison Delong MD,PhD,MICH IMMUNOGLOBULIN G 890 mg/dL Normal 600-1640 [facility] Comment on above: Performed By: #### 9 0349, 59638 #### [facility]/[address] [place] Mortgage Broker: Skyler Ramos M.D.,PhD #### 67073, 8475, %11954, 01544, 8472, 498, 1759, %IN9, 7083, %76131, %04762 #### [facility] of [address] [place] [address] Mortgage Broker: Andres Daniel MD #### 91177 #### [facility], [address] [place], [place] [address] Mortgage Broker: Allison Delong MD,PhD,MICH IMMUNOGLOBULIN M 57 mg/dL Normal 50-300 [facility] Comment on above: Performed By: #### 9 0349, 52561 #### [facility]/[place] [address] [facility] [place] Mortgage Broker: Skyler Ramos M.D.,PhD #### 84084, 8475, %57563, 07974, 8472, 498, 1759, %IN9, 7083, %60229, %01640 #### [facility] of [place] [address] , [address] [place] [address] Mortgage Broker: Andres Daniel MD #### 81085 #### [facility], [address] [place] [address] Mortgage Broker: Allison Delong MD,PhD,MICH INTERPRETATIONon 01-05-2025 INTERPRETATION Normal [facility] Comment on above: Result Comment: All three negative tiers indicate the absence of detectable antibodies to component analytes consisting of double stranded DNA (dsDNA), chromatin, ribonucleoprotein (CORPORATE LAWYER), Barragan/CORPORATE LAWYER (Sm/CORPORATE LAWYER), Barragan (Sm), SS-A, SS-B, Marium-1, Scl-70, centromere B and ribosomal P. A negative result should be interpreted in the context of the clinical and laboratory findings. Performed By: #### 9 0349, 11542 #### [facility]/[place] [address] [facility] [address] [place] Mortgage Broker: Skyler Ramos M.D.,PhD #### 11525, 8475, %53667, 67836, 8472, 498, 1759, %IN9, 7083, %78404, %53369 #### [facility] [address], [address] [place], [place] [address] Mortgage Broker: Andres Daniel MD #### 51774 #### [facility], [address] [place] [address] Mortgage Broker: Allison Delong MD,PhD,MICH STREPTOCOCCUS PNEUMONIAE AB (IGG) (23 SEROTYPES)on 01-05-2025 SEROTYPE 1 (1) 0.4 Normal [facility] Comment on above: Performed By: #### 9 0349, 77956 #### [facility]/[place] [address] [facility] [address] [place] Mortgage Broker: Skyler Ramos M.D.,PhD #### 23848, 8475, %05536, 28290, 8472, 498, 1759, %IN9, 7083, %39407, %24808 #### [facility] of [place] [address], [address] [place] [address] Mortgage Broker: Andres Daniel MD #### 68346 #### [facility]/[place] [facility], [address] [place] [address] Mortgage Broker: Allison Delong MD,PhD,MICH SEROTYPE 12 (12F) <0.3 Normal [facility] Comment on above: Performed By: #### 9 0349, 72025 #### [facility]/[address] [place] Mortgage Broker: Skyler Ramos M.D.,PhD #### 55361, 8475, %87288, 92263, 8472, 498, 1759, %IN9, 7083, %93858, %85762 #### [facility] of [place] [address], [address] [place] [address] Mortgage Broker: Andres Daniel MD #### 10900 #### [facility]/[place] [address] [place] [address] Mortgage Broker: Allison Delong MD,PhD,MICH SEROTYPE 14 (14) 72.2 Normal [facility] Comment on above: Performed By: #### 9 034, 56916 #### [facility]/[address] [place] Mortgage Broker: Skyler Ramos M.D.,PhD #### 17381, 8475, %18416, 21868, 8472, 498, 1759, %IN9, 7083, %67546, %76328 #### [facility] of [facility] [address], [address] [place] [address] Mortgage Broker: Andres Daniel MD #### 03512 #### [facility], [address] [place], [place] [address] Mortgage Broker: Allison Delong MD,PhD,MICH SEROTYPE 17 (17F) 1.4 Normal [facility] Comment on above: Performed By: #### 9 0349, 84143 #### [facility]/[address] [place] Mortgage Broker: Skyler Ramos M.D.,PhD #### 15248, 8475, %04070, 15290, 8472, 498, 1759, %IN9, 7083, %02244, %95950 #### [facility] [address], [address] [place] [address] Mortgage Broker: Andres Daniel MD #### 10887 #### [facility], [address] [place], [place] [address] Mortgage Broker: Allison Delong MD,PhD,MICH SEROTYPE 19 (19F) 3.7 Normal [facility] Comment on above: Performed By: #### 9 0349, 36851 #### [facility]/[address] [place] Mortgage Broker: Skyler Ramos M.D.,PhD #### 55842, 8475, %98787, 36695, 8472, 498, 1759, %IN9, 7083, %19289, %64152 #### [facility] [address] , [address] [place], [place] [phone] Mortgage Broker: Andres Daniel MD #### 32466 #### [facility], [address] [place], [place] [address] Mortgage Broker: Allison Delong MD,PhD,MICH SEROTYPE 2 (2) 15.8 Normal [facility] Comment on above: Performed By: #### 9 0349, 28303 #### [facility]/[address] [place] Mortgage Broker: Skyler Ramos M.D.,PhD #### 51705, 8475, %17134, 22217, 8472, 498, 1759, %IN9, 7083, %25493, %91396 #### [facility] [address], [address] [place] [address] Mortgage Broker: Andres Daniel MD #### 32294 #### [facility], [address] [place] [address] Mortgage Broker: Allison Delong MD,PhD,MICH SEROTYPE 20 (20) 7.6 Normal [facility] Comment on above: Performed By: #### 9 0349, 54895 #### [facility]/[address] [place] Mortgage Broker: Skyler Ramos M.D.,PhD #### 80476, 8475, %99980, 44351, 8472, 498, 1759, %IN9, 7083, %30971, %08045 #### [facility] [address], [address] [place] [address] Mortgage Broker: Andres Daniel MD #### 69736 #### [facility], [address] [address] Mortgage Broker: Allison Delong MD,PhD,MICH SEROTYPE 22 (22F) 0.4 Normal [facility] Comment on above: Performed By: #### 9 0349, 75295 #### [facility]/[address] [place], [place] Mortgage Broker: Skyler Ramos M.D.,PhD #### 96373, 8475, %64637, 00343, 8472, 498, 1759, %IN9, 7083, %03630, %04803 #### [facility] of [place] [address], [address] [place] [address] Mortgage Broker: Andres Daniel MD #### 85825 #### [facility], [address] [place] [address] Mortgage Broker: Allison Delong MD,PhD,MICH SEROTYPE 23 (23F) <0.3 Normal [facility] Comment on above: Performed By: #### 9 0349, 83816 #### [facility]/[address] [place], [place] Mortgage Broker: Skyler Ramos M.D.,PhD #### 58592, 8475, %56609, 35148, 8472, 498, 1759, %IN9, 7083, %62209, %34866 #### [facility] of [place] [address], [address] [place] [address] Mortgage Broker: Andres Daniel MD #### 35210 #### [facility], [address] [place] [address] Mortgage Broker: Allison Delong MD,PhD,MICH SEROTYPE 26 (6B) 1.1 Normal [facility] Comment on above: Performed By: #### 9 0349, 72671 #### [facility] [address] [place], [place] Mortgage Broker: Skyler Ramos M.D.,PhD #### 42534, 8475, %71770, 56034, 8472, 498, 1759, %IN9, 7083, %39217, %71274 #### [facility] of [facility] [address], [address] [place] [address] Mortgage Broker: Andres Daniel MD #### 06983 #### [facility], [facility] [place] Mortgage Broker: Allison Delong MD,PhD,MICH SEROTYPE 3 (3) 0.7 Normal [facility] Comment on above: Performed By: #### 9 0349, 46230 #### [facility]/[address] [place] Mortgage Broker: Skyler Ramos M.D.,PhD #### 17254, 8475, %92014, 71489, 8472, 498, 1759, %IN9, 7083, %75225, %88796 #### [facility] [address], [address] [place] [address] Mortgage Broker: Andres Daniel MD #### 15276 #### [facility], [address] [place] [address] Mortgage Broker: Allison Delong MD,PhD,MICH SEROTYPE 34 (10A) <0.3 Normal [facility] Comment on above: Performed By: #### 9 9869, 51136 #### [facility]/[address] [place] Mortgage Broker: kSyler Ramos M.D.,PhD #### 10436, 8475, %56848, 08454, 8472, 498, 1759, %IN9, 7083, %64537, %70681 #### [facility] [place] , [address] [place] [address] Mortgage Broker: Andres Daniel MD #### 23134 #### [facility], [address] [place], [place] Mortgage Broker: Allison Delong MD,PhD,MICH SEROTYPE 4 (4) <0.3 Normal [facility] Comment on above: Performed By: #### 9 0349, 36140 #### [facility]/[address] [place], [place] Mortgage Broker: Skyler Ramos M.D.,PhD #### 16998, 8475, %29554, 83275, 8472, 498, 1759, %IN9, 7083, %81068, %85376 #### [facility] [address], [address] [place] [address] Mortgage Broker: Andres Daniel MD #### 69114 #### [facility], [facility] [place] [address] Mortgage Broker: Allison Delong MD,PhD,MICH SEROTYPE 43 (11A) <0.3 Normal [facility] Comment on above: Performed By: #### 9 034, 41018 #### [facility]/[address] [place] Mortgage Broker: Skyler Ramos M.D.,PhD #### 34421, 8475, %17912, 24675, 8472, 498, 1759, %IN9, 7083, %50047, %80478 #### [facility] [address], [address] [place] [address] Mortgage Broker: Andres Daniel MD #### 25129 #### [facility], [address] [place] [address] Mortgage Broker: Allison Delong MD,PhD,MICH SEROTYPE 5 (5) 0.7 Normal [facility] Comment on above: Performed By: #### 9 0349, 70961 #### [facility]/[address] [place], [place] Mortgage Broker: Skyler Ramos M.D.,PhD #### 40697, 8475, %14923, 70720, 8472, 498, 1759, %IN9, 7083, %02510, %06961 #### [facility] of [place] [address], [address] [place] [address] Mortgage Broker: Andres Daniel MD #### 30490 #### [facility], [address] [place] [address] Mortgage Broker: Allison Delong MD,PhD,MICH SEROTYPE 51 7F) 7.1 Normal [facility] Comment on above: Performed By: #### 9 0349, 13767 #### [facility]/[address] [place] Mortgage Broker: Skyler Ramos M.D.,PhD #### 18605, 8475, %23489, 55979, 8472, 498, 1759, %IN9, 7083, %69182, %79738 #### [facility] [place] [address], [address] [place] [address] Mortgage Broker: Andres Daniel MD #### 24898 #### [facility], [address] [place] [address] Mortgage Broker: Allison Delong MD,PhD,MICH SEROTYPE 54 (80B 12.2 Normal [facility] Comment on above: Performed By: #### 9 0349, 76460 #### [facility] [address] [place] Mortgage Broker: Skyler Ramos M.D.,PhD #### 66939, 8475, %87642, 61290, 8472, 498, 1759, %IN9, 7083, %65362, %36020 #### [facility] of [facility] [address], [address] [place] [address] Mortgage Broker: Andres Daniel MD #### 07262 #### [facility], [address] [place], [place] Mortgage Broker: Allison Delong MD,PhD,MICH SEROTYPE 56 (18C) <0.3 Normal [facility] Comment on above: Performed By: #### 9 0349, 41936 #### [facility]/[address] [place] Mortgage Broker: Skyler Ramos M.D.,PhD #### 41065, 8475, %36128, 69047, 8472, 498, 1759, %IN9, 7083, %57310, %95649 #### [facility] [address] [place] [address] , [address] [place] [address] Mortgage Broker: Andres Daniel MD #### 83102 #### [facility], [address] [place], [place] Mortgage Broker: Allison Delong MD,PhD,MICH SEROTYPE 57 (19A) 21.6 Normal [facility] Comment on above: Performed By: #### 9 0349, 62493 #### [facility]/[address] [place] Mortgage Broker: Skyler Ramos M.D.,PhD #### 24794, 8475, %78249, 12189, 8472, 498, 1759, %IN9, 7083, %66292, %79709 #### [facility] [address], [address] [place], [place] [address] Mortgage Broker: Andres Daniel MD #### 97729 #### [facility], [address] [place] [address] Mortgage Broker: Allison Delong MD,PhD,MICH SEROTYPE 68 (9V) <0.3 Normal [facility] Comment on above: Performed By: #### 9 0349, 99709 #### [facility] [address] [facility] [address] [place], [place] Mortgage Broker: Skyler Ramos M.D.,PhD #### 06205, 8475, %87300, 91527, 8472, 498, 1759, %IN9, 7083, %30967, %84207 #### [facility] [address] [facility], [address] [place] [address] Mortgage Broker: Andres Daniel MD #### 55887 #### [facility], [address] [place] [address] Mortgage Broker: Allison Delong MD,PhD,MICH SEROTYPE 70 (33F) 0.9 Normal [facility] Comment on above: Result Comment: Sero logic correlates of protection against pneumococcal disease have not been rigorously established for all patient populations. Published data and expert consensus (including WHO) suggest protection from invasive disease usually occurs at levels >or =0.3-0.50 mcg/mL for healthy children receiving pneumococcal conjugate vaccines. Higher titers may be necessary to protect from non-invasive infection (e.g., pneumonia, otitis, sinusitis). Expert opinion suggests that a cut-off of >= 1.3 mcg/mL may be a more relevant value to assess antibody responses after pneumococcal polysaccharide vaccines or for immunocompromised patients. In addition to antibody quantity, protection also depends on antibody avidity and opsonophagocytic activity. Some experts consider that post-vaccination (4-6 weeks) IgG seroconversion and/or 2- to 4-fold rise in IgG titers for >50% to 70% of vaccine serotypes demonstrates a normal post-vaccine serologic response. Persons with high initial serotype-specific titers may have less robust responses. [employer] uses a multi-analyte immunodetection (MAID) method. The method employs the [employer] flow cytometric system which measures multiple analytes simultaneously. The FDA standard reference serum 89-S is used as the calibration standard. Results are reported in mcg/mL. This assay detects all of the 23 of the serotypes in the 23-valent polysaccharide vaccine and 12 of the 13 serotypes in the 13-valent conjugate vaccine. This test was developed and its analytical performance characteristics have been determined by [employer]. It has not been cleared or approved by FDA. This assay has been validated pursuant to the CLIA regulations and used for clinical purposes. For additional information, please refer to http://education.[employer]/faq/OEY626 (This link is being provided for informational/ educational purposes only.) Performed By: #### 9 0349, 74049 #### [facility]/[address] [place] Mortgage Broker: Skyler Ramos M.D.,PhD #### 96471, 8475, %23833, 50095, 8472, 498, 1759, %IN9, 7083, %29356, %91806 #### [facility] [address], [address] [place] [address] Mortgage Broker: Andres Daniel MD #### 18082 #### [facility], [address] [place] [address] Mortgage Broker: Allison Delong MD,PhD,MICH SEROTYPE 8 (8) 1.3 Normal [employer] Comment on above: Performed By: #### 9 0349, 00962 #### [facility]/[address] [facility] [place] Mortgage Broker: Skyler Ramos M.D.,PhD #### 12943, 8475, %57449, 27281, 8472, 498, 1759, %IN9, 7083, %44049, %86710 #### [facility] [address], [address] [place], [place] [address] Mortgage Broker: Andres Daniel MD #### 26675 #### [facility], [address] [place] [address] Mortgage Broker: Allison Delong MD,PhD,MICH SEROTYPE 9 (9N) <0.3 Normal [facility] Comment on above: Performed By: #### 9 0349, 41337 #### [facility] [address] [facility] [place] Mortgage Broker: Skyler Ramos M.D.,PhD #### 61382, 8475, %81113, 04672, 8472, 498, 1759, %IN9, 7083, %51428, %42159 #### [facility] [address], [address] [place], [place] [address] Mortgage Broker: Andres Daniel MD #### 96345 #### [facility], [address] [place] [address] Mortgage Broker: Allison Delong MD,PhD,MICH SYPHILIS ANTIBODY CASCADING [facility] 01-05-2025 T. PALLIDUM AB Negative Normal Negative [facility] Comment on above: Result Comment: No antibodies to T. pallidum (the agent causing syphilis) were detected in the specimen. This result, however, does not exclude very recent T. pallidum infection; testing of a second specimen, collected 2-4 weeks after this specimen, is recommended if the index of suspicion for recent infection is high. Performed By: #### 9 0349, 43712 #### [facility] [address] [facility] [place] Mortgage Broker: Skyler Ramos M.D.,PhD #### 26663, 8475, %84126, 36801, 8472, 498, 1759, %IN9, 7083, %64669, %91979 #### [facility] [address], [address] [place] [address] Mortgage Broker: Andres Daniel MD #### 56022 #### [facility], [address] [place] [address] Mortgage Broker: Allison Delong MD,PhD,MICH TIER 1on 01-05-2025 CHROMATIN (NUCLEOSOMAL) ANTIBODY <1.0 NEG Normal <1.0 NEG [facility] Comment on above: Performed By: #### 9 0349, 86797 #### [facility]/[address] [place] Mortgage Broker: Skyler Ramos M.D.,PhD #### 30438, 8475, %54582, 26799, 8472, 498, 1759, %IN9, 7083, %16652, %57031 #### [facility] [address] [place] [address], [address] [place] [address] Mortgage Broker: Andres Daniel MD #### 19541 #### [facility], [address] [place] [address] Mortgage Broker: Allison Delong MD,PhD,MICH DNA (DS) ANTIBODY 1 IU/mL Normal [facility] Comment on above: Result Comment: IU/m L Interpretation < or = 4 Negative 5-9 Indeterminate > or = 10 Positive Performed By: #### 9 0349, 79243 #### [facility]/[address] [place] Mortgage Broker: Skyler Ramos M.D.,PhD #### 58514, 8475, %69162, 88369, 8472, 498, 1759, %IN9, 7083, %96932, %11775 #### [facility] [address], [address] [place] [address] Mortgage Broker: Andres Daniel MD #### 44369 #### [facility], [address] [place] [address] Mortgage Broker: Alliosn Delong MD,PhD,MICH CORPORATE LAWYER ANTIBODY <1.0 NEG Normal <1.0 NEG [facility] Comment on above: Performed By: #### 9 0349, 35482 #### [facility]/[address] [place] Mortgage Broker: Skyler Ramos M.D.,PhD #### 08245, 8475, %38679, 88289, 8472, 498, 1759, %IN9, 7083, %64389, %10060 #### [facility] [address], [address] [place], [place] [address] Mortgage Broker: Andres Daniel MD #### 39471 #### [facility], [address] [place], [place] Mortgage Broker: Allison Delong MD,PhD,MICH SM ANTIBODY <1.0 NEG Normal <1.0 NEG [facility] Comment on above: Performed By: #### 9 0349, 37085 #### [facility]/[address] [place] Mortgage Broker: Skyler Ramos M.D.,PhD #### 07042, 8475, %99063, 39845, 8472, 498, 1759, %IN9, 7083, %50495, %99388 #### [facility] [address], [address] [place] [address] Mortgage Broker: Andres Daniel MD #### 16140 #### [facility], [address] [facility] [place] Mortgage Broker: Allison Delong MD,PhD,MICH SM/CORPORATE LAWYER ANTIBODY <1.0 NEG Normal <1.0 NEG [facility] Comment on above: Performed By: #### 9 0349, 95413 #### [facility] [address] [place], [place] Mortgage Broker: Skyler Ramos M.D.,PhD #### 21945, 8475, %87992, 81011, 8472, 498, 1759, %IN9, 7083, %98466, %87189 #### [facility] [place] [address] Mortgage Broker: Andres Daniel MD #### 10272 #### [facility], [address] [place], [place] [address] Mortgage Broker: Allison Delong MD,PhD,MICH [facility] 2 01-05-2025 MARIUM-1 ANTIBODY <1.0 NEG Normal <1.0 NEG [facility] Comment on above: Performed By: #### 9 0349, 46574 #### [facility]/[address] [place] Mortgage Broker: Skyler Ramos M.D.,PhD #### 94365, 8475, %98370, 48954, 8472, 498, 1759, %IN9, 7083, %10004, %35730 #### [facility] [place] [address] Mortgage Broker: Andres Daniel MD #### 40000 #### [facility], [address] [place], [place] [address] Mortgage Broker: Allison Delong MD,PhD,MICH SCL-70 ANTIBODY <1.0 NEG Normal <1.0 NEG [facility] Comment on above: Performed By: #### 9 0349, 97500 #### [facility] [address] [place] [address] [place] Mortgage Broker: Skyler Ramos M.D.,PhD #### 56838, 8475, %24132, 79028, 8472, 498, 1759, %IN9, 7083, %89976, %89451 #### [facility] [place] [address], [address] [place] [address] Mortgage Broker: Andres Daniel MD #### 20098 #### [facility], [address] [place] [place] [address] Mortgage Broker: Allison Delong MD,PhD,MICH SJOGREN'S ANTIBODY (SS-A) <1.0 NEG Normal <1.0 NEG [facility] Comment on above: Performed By: #### 9 0349, 84171 #### [facility]/[address] [place] Mortgage Broker: Skyler Ramos M.D.,PhD #### 93221, 8475, %55095, 06324, 8472, 498, 1759, %IN9, 7083, %01924, %21150 #### [facility] [address] , [address] [place] [address] Mortgage Broker: Andres Daniel MD #### 57462 #### [facility], [address] [facility] [place] Mortgage Broker: Allison Delong MD,PhD,MICH SJOGREN'S ANTIBODY (SS-B) <1.0 NEG Normal <1.0 NEG [facility] Comment on above: Performed By: #### 9 0349, 55716 #### [facility]/[address] [place] Mortgage Broker: Skyler Ramos M.D.,PhD #### 88169, 8475, %04562, 71598, 8472, 498, 1759, %IN9, 7083, %79362, %42509 #### [facility] [address] , [address] [place] [address] Mortgage Broker: Andres Daniel MD #### 42352 #### [facility], [address] [place], [place] [address] Mortgage Broker: Allison Delong MD,PhD,MICH [address] 01-05-2025 CENTROMERE B ANTIBODY <1.0 NEG Normal <1.[address] [facility] Comment on above: Performed By: #### 9 0349, 37982 #### [facility]/[address] [place] Mortgage Broker: Skyler Ramos M.D.,PhD #### 92279, 8475, %80391, 98784, 8472, 498, 1759, %IN9, 7083, %87355, %56955 #### [facility] [place] [address] Mortgage Broker: Andres Daniel MD #### 80890 #### [facility]/[place] [phone] Mortgage Broker: Allison Delong MD,PhD,MICH RIBOSOMAL P ANTIBODY <1.0 NEG Normal <1.0 NEG [facility] Comment on above: Result Comment: The [place] does not rule out autoimmune disease characterized by other autoantibody specificities such as rheumatoid arthritis, autoimmune hepatitis, primary biliary cholangitis, autoimmune thyroiditis, Walthall's disease, pernicious anemia, autoimmune neuropathies, vasculitis, celiac disease and bullous disease. Please contact your local [facility] laboratory if you are interested in additional testing. Performed By: #### 9 0349, 40206 #### [facility]/[place] [address] [facility] [place] Mortgage Broker: Skyler Ramos M.D.,PhD #### 77121, 8475, %84214, 88590, 8472, 498, 1759, %IN9, 7083, %40524, %42055 #### [facility] [address], [address] [place], [place] [address] Mortgage Broker: Andres Daniel MD #### 55370 #### [facility], [address] [place] [address] Mortgage Broker: Allison Delong MD,PhD,MICH 12-31-2024 36 Message released to patient as written. Patient's further questions if applicable: N/a Were all questions from office addressed or relayed to the patient from encounter: Yes [facility] 36 Lm for patient to [facility] the office back, please relay providers message. [place] [address] The pt is incorrect. She must be seen in the office at least once a year. This could change depending on the need of care. [facility] 36 Spoke to pt and let pt know that I will forward this message on to provider that they will be able to ok moving appointments to VV or not but pt does have to be seen in office at least once a year and pt states Christina said she doesn't need to be seen in office there is nothing wrong with her. [facility] 36 Name of caller: Fadumo lee Contact phone number: [phone] Relationship to Patient: patient Provider: Rosangela Mason Practice: Neurology Chief Complaint/Reason for Call: Patient called stating that from now on all her appointments will need to be Telehealth appointments due to her not being able to get rides. Please be advised. Best time of day caller can be reached: Any Patient advised that office/PCP has 24-48 business hours to return their call: N/A [facility] 3612-24-2024 36 Change appointment VV [facility] 36 Virtual is fine [facility] 36 Name of Caller: Fadumo kellogg Contact Reason for Appointment: Patient called to schedule 4 month follow up. Scheduled for 04/25/25 and asking if appointment can be a virtual visit due to her living almost an hour away. Please call patient back to confirm. Office Name: Neurology Medication Refills need, if any: N/A Medication Name: N/A [facility] 36 Lm for patient to [facility] the office back, please schedule pt a 4 month follow up appointment with Christina. Thanks [facility] 37on 12-24-2024 37 Continue Qulipta shahid ly Ubrevly as needed Normal [facility] Progress Noteon 12-24-2024 Progress Note Patient was identifi ed and seen today via Telehealth by agreement and consent. I used the following Telehealth technology: Audio and video capabilities. Patient location: Patient Location: Home. This patient encounter is appropriate and reasonable under the circumstances: transportation issuesVisit type: Established Patient Reason for Visit: Follow-up and Migraine Assessment and Plan 1. Intractable chronic migraine without aura and without status migrainosus Subjective HPI: Failed TPX, Imitrex, Excedrin, Maxalt Given Ajovy and Aimovig approved. Aimovig caused worsening of migraines, Nurtec Began Botox 06/2023 Caused flu like sx for 3 days post injection-Body aches, loss of appetite, very tired and wants to sleep Switch to Qulipta Ubrelvy prn She reports the last headache she had was the end of August No side effects REVIEW OF SYSTEMS: Review of Systems Constitutional: Negative. HENT: Negative. Eyes: Negative. Respiratory: Negative. Cardiovascular: Negative. Gastrointestinal: Negative. Endocrine: Negative. Genitourinary: Negative. Musculoskeletal: Negative. Skin: Negative. Allergic/Immunologic: Negative. Neurological: Positive for headaches. Hematological: Negative. Psychiatric/Behavioral: Negative. Allergies[1] Current Medications[2] Medical History[3] Social History Tobacco Use Smoking status: Every Day Current packs/day: 1.50 Average packs/day: 1.2 packs/day for 28.3 years (35.0 ttl pk-yrs) Types: Cigarettes Start date: 08/22/2011 Smokeless tobacco: Never Substance Use Topics Alcohol use: Never Surgical History[4] Family History[5] Objective Vitals: There were no vitals taken for this visit. Neurologic: Mentation: Alert and oriented x [address], [address] and time. Data Reviewed and Summarized DIAGNOSTIC TESTING CBC: [...] TSH VITAMIN B12: No results found for: [id number] No results found for: PHENYTOIN, PHENOBARB, VALPROATE, CBMZ No components found for: TOPIRA @RESULTINGLABINFO@ No results found for: LEVETIRACETA, FERRITIN, CRP, FRIEDA, ANCA No results found for: ADELE, IMMUNOGLOBUL, OLIGOBANDS No results found for: CTW14MA, HEPCAB No results found for: CRP, ANATITER, ANCA FERRITIN: No results found for: FERRITIN ---- MR brain w and wo contrast Narrative: [facility] 1990 [id number] Exam Date/Time: 05/23/2023 15:13 Procedure: MR BRAIN [...] Electronically Signed Date/Time: 05/28/2023 4:10 PM EST @LASTAPPOINTMENTTHISPROV @ IMPRESSION and PLAN: Problem List Items Addressed This Visit None Visit Diagnoses Intractable chronic migraine without aura and without status migrainosus - Primary Continue Qulipta daily Ubrevly as needed Megan Mason APRN - (more content not included)... Normal [facility] EGD Reporton 12-16-2024 EGD Report [facility] Medical Records Department [address] [place] [address] EGD Report MR#: [id number] Acct: [id number] Name: CARLOS GIRON Rep #: [id number] : 1990 34 From: Moses Montalvo DO PCP: Dr. Nataliya Gomez MD Status:REG [facility] Patient Name: Carlos Giron Procedure Date: 12/16/2024 6:36 AM Date of : 1990 Age: 34 Procedure: Upper GI endoscopy Indications: Epigastric abdominal pain, Functional Dyspepsia, Heartburn, Suspected esophageal reflux Providers: Mosse Montalvo DO Referring MD: Nataliya Gomez Md Medicines: Monitored Anesthesia Care Patient Profile: This is a 34 year old female. Refer to note in patient chart for documentation of history and physical. Patient has symptoms of acute abdominal cramping, chronic epigastric abdominal pain, acute dyspepsia, chronic nausea, chronic regurgitation and chronic vomiting. Complications: No immediate complications. Procedure: Pre-Anesthesia Assessment: - Prior to the procedure, a History and Physical was performed, and patient medications and allergies were reviewed. The patient is competent. The risks and benefits of the procedure and the sedation options and risks were discussed with the patient. All questions were answered and informed consent was obtained. Patient identification and proposed procedure were verified by the physician in the pre-procedure area. Mental Status Examination: alert and oriented. Airway Examination: normal oropharyngeal airway and neck mobility. Respiratory Examination: clear to auscultation. CV Examination: normal. Prophylactic Antibiotics: The patient does not require prophylactic antibiotics. Prior Anticoagulants: The patient has taken no anticoagulant or antiplatelet agents except for NSAID medication. ASA Grade Assessment: II - A patient with mild systemic disease. After reviewing the risks and benefits, the patient was deemed in satisfactory condition to undergo the procedure. The anesthesia plan was to use monitored anesthesia care (MAC). Immediately prior to administration of medications, the patient was re-assessed for adequacy to receive sedatives. The heart rate, respiratory rate, oxygen saturations, blood pressure, adequacy of pulmonary ventilation, and response to care were monitored throughout the procedure. The physical status of the patient was re-assessed after the procedure. After obtaining informed consent, the endoscope was passed under direct vision. Throughout the procedure, the patient's blood pressure, pulse, and oxygen saturations were monitored continuously. The Endoscope was introduced through the mouth, and advanced to the second part of duodenum. The upper GI endoscopy was accomplished without difficulty. The patient tolerated the procedure well. Scope In: 6:52:18 AM Scope Out: 6:54:41 AM Total Procedure Duration Time 0 hours 2 minutes 23 seconds Findings: The Z-line was irregular and was found 40 cm from the incisors. Biopsies were taken with a cold forceps for histology. Verification of patient identification for the specimen was done. Estimated blood loss was minimal. Suspect gastroparesis due to absence of peristalsis, patient symptoms and retained gastric contents. No gross lesions were noted in the duodenal bulb. Impression: - Z-line irregular, 40 cm from the incisors. Biopsied. - Gastroparesis, idiopathic etiology. - No gross lesions in the duodenal bulb. Recommendation: - Discharge patient to home. - Resume previous diet. - Continue present medications. - Await pathology results. - Gastric emptying study Procedure Code(s): --- Professional --- 73729, Esophagogastroduodenosco py, flexible, transoral; with biopsy, single or multiple CPT copyright 2021 [employer]. All rights reserved. The codes documented in this report are preliminary and upon machine joiner cementer review may be revised to meet current compliance requirements. Moses Montalvo DO 12/16/2024 7:02:38 AM This report has been signed electronically. Number of Addenda: 0 Note Initiated On: 12/16/2024 6:36 AM 12/16/24 0703 Date Moses Kyle Signature: Date (if indicated) CC: Dr. Nataliya Gomez MD; Moses Montalvo DO Date Dictated: 12/16/24635 Date Transcribed: End Packer: NICOLLE Signed [facility] MR/POSTOP.ANE 12-16-2024 MR/POSTOP.[facility] Medical Records Department [address] [place] [address] Anesthesia Postop Eval I 12/16/24709 MR#: [id number] Acct: [id number] Name: DEBBIECARLOS LUNDBERG NELLY Rep #: [id number] : 1990 34 From: Owen Grace PCP: Dr. Nataliya Gomez MD Status:REG SD Y Race: C Location: [place] [address] Anesthesia: Postop Eval I Current Vital Signs Temperature: 97 F Pulse Rate: 86 Blood Pressure: 120/103 Respiratory Rate: 16 Pulse Ox: 98 Oxygen Delivery Method: Room Air Assessment Airway patent: Yes Spontaneous unlabored respirations: Yes Mental status: Awake and Calm nausea: No Vomiting: No Anesthesia Complication: No Fluid Hydration Crystalloid volume administer (ml): 300 Total IV fluid infused: 300 Progress Note Anesthesia document: Postop Eval 1 completed: Yes 12/16/24709 Date Owen Marc Signature: CC: Signed [facility] MR/[id number] 12-16-2024 MR/POSTOPA50 [address] Medical Records Department [address] [place] [address] Anesthesia Postop Eval II 12/16/2440 MR#: [id number] Acct: [id number] Name: CARLOS GIRON Rep #: [id number] : 1990 34 From: Rafael Whiting MD PCP: Dr. Nataliya Gomez MD Status:DEP [facility] Y Race: C Location: [place] Anesthesia Postop Eval I Sum Postop Eval Completion status Anesthesia document: Postop Eval 1 completed: Yes Anesthesia Postop Eval I Summary Anesthesia Postop Eval I Summary: Anesthesia Postop Eval I: Assessment Summary Airway patent Yes 12/16/24 07:10 [email or web address] Spontaneous unlabored Yes 12/16/24 07:10 [email or web address] respirations Mental status Awake,Calm 12/16/24 07:10 [email or web address] nausea No 12/16/24 07:10 [email or web address] Vomiting No 12/16/24 07:10 [email or web address] Anesthesia Postop Eval I: Fluid Summary Crystalloid volume administer 300 12/16/24 07:10 [email or web address] (ml) Colloids volume administered ( ml) Blood Product volume administered (ml) Total IV fluid infused 300 12/16/24 07:10 [email or web address] Anesthesia Postop Eval I: Summary Notes Anesthesia Complication No 12/16/24 07:10 [email or web address] Anesthesia Complication Comment: Post-operative progress note Anesthesia: Postop Eval II Evaluation Mental status: Awake and Calm Pain Level: 0 nausea: No Vomiting: No Complications Anesthesia Complication: No 12/16/24739 Date Rafael Whiting MD Cosigner Signature: Date CC: Signed Normal [facility] ,Urineon 12-16-2024 Beta HCG ( test) Ql (U) Negative Normal [facility] Comment on above: Result Comment: Very dilute urine specimens, as indicated by a low specific gravity, may not contain new accounts representative levels of hCG. If is still suspected, a first morning urine specimen should be collected 48 hours later and tested. Performed By: #### M [id number] #### [facility] [address] [place], [address] Surgery Specimen Level [place] 12-16-2024 Surgery Specimen Level IV Patient Age/Sex Location Account Attending Physician CARLOS GIRON 34/F EN [id number] Moses Montalvo DO Specimen: [id number] Received: 12/16/24 Status: SAMUEL Blanchard Num: [id number] Spec Type: EGD BIOPSY Subm Dr: Moses Montalvo, HEADER OPERATION: EGD, biopsy PRE-OP DIAGNOSIS: Abdominal pain, diarrhea, irritable bowel syndrome TISSUE SUBMITTED: A- Distal esophagus biopsy MICROSCOPIC DIAGNOSIS A. Distal esophagus, biopsy: * Benign squamous epithelium without active inflammation * Oxynto-cardiac mucosa with chronic inflammation * No goblet cell metaplasia is identified MICROSCOPIC DESCRIPTION Slides are reviewed. GROSS DESCRIPTION A. Received in fixative is one container labeled with the patient's name and designated Distal esophagus biopsy. The specimen consists of two irregular fragments of light harrison soft tissue that in aggregate measure 0.5 and 0.7 cm. The specimen is totally submitted in one cassette. Anthony 12/16/2024 CPT:32255 Patient Age/Sex Location Account Attending Physician CARLOS GIRON 34/ EN [id number] Moses Montalvo DO Signed (signature on file) Dr. Eliseo Soto MD 12/24/24 2158 Normal [facility] Comment on above: Performed By: #### L 503.0106, L506.1001 #### [facility] [address] [place], [address] Urine testOrdered By: Jerardo Emerson on 12-16-2024 HCG ( test) Ql (U) Negative [facility] Comment on above: Very dilute urine sp ecimens, as indicated by a low specificgravity, may not contain new accounts representative levels of hCG. If is still suspected, a first morning urinespecimen should be collected 48 hours later and tested. 36on 12-11-2024 36 Noted Normal [facility] 36 Name of caller: Fadumo lee Contact phone number: [phone] Relationship to Patient: patient Provider: ANTWAN Marsh CNP Practice: [facility] [place] Chief Complaint/Reason for Call: Carlos states she would like to inform that Qulipta has helped with her headaches tremendously and has not had a headache since August 28. Please be advised. Best time of day caller can be reached: Any Patient advised that office/PCP has 24-48 business hours to return their call: Yes Normal [facility] Abdomen/Pelvis WITH Contrast on 11-26-2024 Abdomen/Pelvis WITH Contrast [facility] [address] [place] [address] Abdomen/Pelvis WITH Contrast MR#: [id number] Acct: [id number] Name: CARLOS GIRON Rep #: [id number] : 1990 F 34 From: Ten rodriguez MD PCP: Dr. Nataliya Gomez MD Status: REG CLI Study: Abdomen/Pelvis WITH Contrast Date of Exam: Exam# [id number] Ordering Dr: Moses Montalvo DO PROCEDURE: ABDOMEN/PELVIS [...] Fatty infiltration of the liver. Reading Location: [id number] CC: Dr. Nataliya Gomez MD; Moses Montalvo DO End Packer: Signed Normal [facility] ABD Limited w/ Elastographyo n 11-15-2024 ABD Limited w/ Elastography [facility] [address] [place] [address] ABD Limited w/ Elastography MR#: [id number] Acct: [id number] Name: CARLOS GIRON Rep #: [id number] : 1990 F 34 From: Ten rodriguez MD PCP: Dr. Nataliya Gomez MD Status: REG CLI Study: ABD Limited w/ Elastography Date of Exam: 11/03 08/27 Exam# [id number] Ordering Dr: Moses Montalvo DO PROCEDURE: ABD LIMITED W/ ELASTOGRAPHY REASON FOR EXAM: ABDOMINAL PAIN COMPARISON: None. TECHNIQUE: Right upper quadrant abdominal ultrasound. Kulwant ElastQ Imaging shear wave elastography for non- invasive assessment of liver tissue stiffness. Kulwant EPIQ [...] quadrant ascites. US/ABD Limited w/ Elastography IMPRESSION: Bhht-nv-myzamzzp hepatic fibrosis. Fatty infiltration of the liver. [...] measurement may be in question. Reading Location: [id number] CC: Dr. Nataliya Gomez MD; Moses Montalvo DO End Packer: Signed Normal [facility] Absolute lymphocyte countOrd ered By: Nataliya Gomez on 11-08-2024 Lymphocytes Auto (Unsp spec) [#/Vol] 2.07 10*3/uL 0.83-4.51 [facility] Absolute neutrophil countOrd ered By: Nataliya Gomez on 11-08-2024 Neutrophils (Bld) [#/Vol] 5.5 10*3/uL 2.0-7.7 [facility] Anion gap in Serum or Plasma Ordered By: Nataliya Gomez on 11-08-2024 Anion gap [Moles/Vol] 13 mmol/L 5-15 [facility] Automated lymphocyte count a s percentage of total leukocytesOrdered By: Nataliya Gomez on 11-08-2024 Lymphocytes/100 WBC Auto (Unsp spec) 25.4 % 19-41 [facility] BUN/creatinine ratioOrdered By: Nataliya Gomez on 11-08-2024 Urea nitrogen/Creatinine [Mass ratio] 12.0 mg/mg 10-20 [facility] Basophil percentageOrdered B y: Nataliya Gomez on 11-08-2024 Basophils/100 WBC (Bld) 0.2 % 0-1 [facility] Bilirubin, totalOrdered By: Nataliya Gonzalezke on 11-08-2024 Bilirubin [Mass/Vol] 0.33 mg/dL 0.00-1.30 [facility] CBC W/Diff, Automatedon Absolute Lymph 2.07 X10 3/uL Normal 0.83-4.51 [facility] Comment on above: Order Comment: Order Date: 10/10/24 Order Info: 0184-1 - CBCD Performed By: #### L 501.9310, L100.0100, L500.4050, L501.9520 #### [facility] [address] [place], [address] Absolute Neut 5.5 X10 3/uL Normal 2.0-7.7 [facility] Comment on above: Order Comment: Order Date: 10/10/24 Order Info: 0184-1 - CBCD Performed By: #### L 501.9310, L100.0100, L500.4050, L501.9520 #### [facility] [address] [place], [address] Basophils/100 WBC (Bld) 0.2 % Normal 0-1 [facility] Comment on above: Order Comment: Order Date: 10/10/24 Order Info: 0184-1 - CBCD Performed By: #### L 501.9310, L100.0100, L500.4050, L501.9520 #### [facility] [address] [place], [address] Eosinophils/100 WBC (Bld) 0.5 % Normal 0-5 [facility] Comment on above: Order Comment: Order Date: 10/10/24 Order Info: 0184-1 - CBCD Performed By: #### L 501.9310, L100.0100, L500.4050, L501.9520 #### [facility] [address] [place], [address] Erythrocyte distribution width (RBC) [Ratio] 13.0 % Normal 11.6-14.6 [facility] Comment on above: Order Comment: Order Date: 10/10/24 Order Info: 0184- - CBCD Performed By: #### L 501.9310, L100.0100, L500.4050, L501.9520 #### [facility] [address] [place], [address] Hematocrit (Bld) [Volume fraction] 42.9 % Normal 37-47 [facility] Comment on above: Order Comment: Order Date: 10/10/24 Order Info: 0184- - CBCD Performed By: #### L 501.9310, L100.0100, L500.4050, L501.9520 #### [facility] [address] [place], [address] Hemoglobin (Bld) [Mass/Vol] 14.2 g/dL Normal 12.0-15.0 [facility] Comment on above: Order Comment: Order Date: 10/10/24 Order Info: 0184-1 - CBCD Performed By: #### L 501.9310, L100.0100, L500.4050, L501.9520 #### [facility] [address] [place], [address] IG% 0.400 Normal 0.0-0.9 [facility] Comment on above: Order Comment: Order Date: 10/10/24 Order Info: 0184-1 - CBCD Result Comment: IG% - Immature Granulocytes (promyelocytes, myelocytes and metamyelocytes) > 1% indicates that a LEFT SHIFT is Present. Performed By: #### L 501.9310, L100.0100, L500.4050, L501.9520 #### [facility] [address] [place], [address] Lymphocytes/100 WBC (Bld) 25.4 % Normal 19-41 [facility] Comment on above: Order Comment: Order Date: 10/10/24 Order Info: 0184-1 - CBCD Performed By: #### L 501.9310, L100.0100, L500.4050, L501.9520 #### [facility] [address] [place], [address] MCH (RBC) [Entitic mass] 33.0 pg High 27.0-32.0 [facility] Comment on above: Order Comment: Order Date: 10/10/24 Order Info: 0184-1 - CBCD Performed By: #### L 501.9310, L100.0100, L500.4050, L501.9520 #### [facility] [address] [place], [address] MCHC (RBC) [Mass/Vol] 33.1 g/dL Normal 32-36 [facility] Comment on above: Order Comment: Order Date: 10/10/24 Order Info: 0184-1 - CBCD Performed By: #### L 501.9310, L100.0100, L500.4050, L501.9520 #### [facility] [address] [place], [address] MCV (RBC) [Entitic vol] 99.8 fL High 81-99 [facility] Comment on above: Order Comment: Order Date: 10/10/24 Order Info: 0184-1 - CBCD Performed By: #### L 501.9310, L100.0100, L500.4050, L501.9520 #### [facility] [address] [place], [address] Monocytes/100 WBC (Bld) 5.9 % Normal 0-10 [facility] Comment on above: Order Comment: Order Date: 10/10/24 Order Info: 0184-1 - CBCD Performed By: #### L 501.9310, L100.0100, L500.4050, L501.9520 #### [facility] [address] [place], [address] Neutrophils/100 WBC (Bld) 67.6 % Normal 47-70 [facility] Comment on above: Order Comment: Order Date: 10/10/24 Order Info: 0184-1 - CBCD Performed By: #### L 501.9310, L100.0100, L500.4050, L501.9520 #### [facility] [address] [place], [address] Nucleated RBC (Bld) [#/Vol] 0 10*3/uL Normal 0-5 [facility] Comment on above: Order Comment: Order Date: 10/10/24 Order Info: 0184-1 - CBCD Performed By: #### L 501.9310, L100.0100, L500.4050, L501.9520 #### [facility] [address] [place], [address] Platelet mean volume (Bld) [Entitic vol] 9.8 fL Normal 6.2-12.0 [facility] Comment on above: Order Comment: Order Date: 10/10/24 Order Info: 0184-1 - CBCD Performed By: #### L 501.9310, L100.0100, L500.4050, L501.9520 #### [facility] [address] [place], [address] Platelets (Bld) [#/Vol] 222 10*3/uL Normal 150-450 [facility] Comment on above: Order Comment: Order Date: 10/10/24 Order Info: 0184-1 - CBCD Performed By: #### L 501.9310, L100.0100, L500.4050, L501.9520 #### [facility] [address] [place], [address] RBC (Bld) [#/Vol] 4.30 10*6/uL Normal 4.2-5.4 [facility] Comment on above: Order Comment: Order Date: 10/10/24 Order Info: 0184-1 - CBCD Performed By: #### L 501.9310, L100.0100, L500.4050, L501.9520 #### [facility] [address] [place], [address] RDW SD 47.8 fl High 35.1-43.9 [facility] Comment on above: Order Comment: Order Date: 10/10/24 Order Info: 0184- - CBCD Performed By: #### L 501.9310, L100.0100, L500.4050, L501.9520 #### [facility] [address] [place], [address] WBC (Bld) [#/Vol] 8.2 10*3/uL Normal 4.4-11.0 [facility] Comment on above: Order Comment: Order Date: 10/10/24 Order Info: 0184-1 - CBCD Performed By: #### L 501.9310, L100.0100, L500.4050, L501.9520 #### [facility] [address] [place], [address] Carbon dioxide, total [Moles /volume] in Central venous bloodOrdered By: Nataliya Gomez on 11-08-2024 CO2 [Moles/Vol] 20.2 mmol/L Low 21.0-32.0 [facility] Chloride assayOrdered By: Paulo Gomez on 11-08-2024 Chloride [Moles/Vol] 105 mmol/L 98-108 [facility] Comprehensive Metabolic Prof ilon 11-08-2024 Albumin [Mass/Vol] 4.1 g/dL Normal 3.5-5.0 [facility] Comment on above: Order Comment: Order Date: 10/10/24 Order Info: 86-1 - CMP Order Info: 3026-2 - T4 Order Info: 3015-3 - TSH Performed By: #### L 501.9310, L100.0100, L500.4050, L501.9520 #### [facility] [address] [place], [address] Albumin/Globulin [Mass ratio] 1.5 {ratio} Normal 0.9-2.4 [facility] Comment on above: Order Comment: Order Date: 10/10/24 Order Info: 785-1 - CMP Order Info: 3026-2 - T4 Order Info: 3 - TSH Performed By: #### L 501.9310, L100.0100, L500.4050, L501.9520 #### [facility] [address] [place], [address] ALK PHOS 56 U/L Normal 35-104 [facility] Comment on above: Order Comment: Order Date: 10/10/24 Order Info: 0786-1 - CMP Order Info: 2 - T4 Order Info: 3 - TSH Performed By: #### L 501.9310, L100.0100, L500.4050, L501.9520 #### [facility] [address] [place], [address] ALT [Catalytic activity/Vol] 14 U/L Normal <=34 [facility] Comment on above: Order Comment: Order Date: 10/10/24 Order Info: 0786-1 - CMP Order Info: 3026-2 - T4 Order Info: 3015-3 - TSH Performed By: #### L 501.9310, L100.0100, L500.4050, L501.9520 #### [facility] [address] [place], [address] AST [Catalytic activity/Vol] 18 U/L Normal <=31 [facility] Comment on above: Order Comment: Order Date: 10/10/24 Order Info: 86-1 - CMP Order Info: 3025-2 - T4 Order Info: 3 - TSH Performed By: #### L 501.9310, L100.0100, L500.4050, L501.9520 #### [facility] [address] [place], [address] Bilirubin [Mass/Vol] 0.33 mg/dL Normal 0.00-1.30 [facility] Comment on above: Order Comment: Order Date: 10/10/24 Order Info: 1 - CMP Order Info: 2 - T4 Order Info: 3 - TSH Performed By: #### L 501.9310, L100.0100, L500.4050, L501.9520 #### [facility] [address] [place], [address] BUN/CRE 12.0 RATIO Normal 10-20 [facility] Comment on above: Order Comment: Order Date: 10/10/24 Order Info: 785-1 - CMP Order Info: 2 - T4 Order Info: 3 - TSH Performed By: #### L 501.9310, L100.0100, L500.4050, L501.9520 #### [facility] [address] [place], [address] Calcium [Mass/Vol] 9.7 mg/dL Normal 7.6-11.0 [facility] Comment on above: Order Comment: Order Date: 10/10/24 Order Info: 0786-1 - CMP Order Info: 3026-2 - T4 Order Info: 3 - TSH Performed By: #### L 501.9310, L100.0100, L500.4050, L501.9520 #### [facility] [address] [place], [address] Chloride [Moles/Vol] 105 mmol/L Normal 98-108 [facility] Comment on above: Order Comment: Order Date: 10/10/24 Order Info: 0786-1 - CMP Order Info: 3026-2 - T4 Order Info: 301-3 - TSH Performed By: #### L 501.9310, L100.0100, L500.4050, L501.9520 #### [facility] [address] [place], [address] CO2 [Moles/Vol] 20.2 mmol/L Low 21.0-32.0 [facility] Comment on above: Order Comment: Order Date: 10/10/24 Order Info: 785-1 - CMP Order Info: 3026-2 - T4 Order Info: 301-3 - TSH Performed By: #### L 501.9310, L100.0100, L500.4050, L501.9520 #### [facility] [address] [place], [address] Creatinine [Mass/Vol] 0.77 mg/dL Normal 0.70-1.20 [facility] Comment on above: Order Comment: Order Date: 10/10/24 Order Info: 0786-1 - CMP Order Info: 3026-2 - T4 Order Info: 3016-3 - TSH Performed By: #### L 501.9310, L100.0100, L500.4050, L501.9520 #### [facility] [address] [place], [address] GAP 13 Normal 5-15 [facility] Comment on above: Order Comment: Order Date: 10/10/24 Order Info: 0786-1 - CMP Order Info: 3026-2 - T4 Order Info: 3016-3 - TSH Performed By: #### L 501.9310, L100.0100, L500.4050, L501.9520 #### [facility] [address] [place], [address] GFR/1.73 sq M.predicted among non-blacks MDRD (S/P/Bld) [Vol rate/Area] 105 mL/min/{1.73_m2} Normal >60 [facility] Comment on above: Order Comment: Order Date: 10/10/24 Order Info: 0786-1 - CMP Order Info: 3026-2 - T4 Order Info: 3015-3 - TSH Result Comment: mL/m in/1.73m2 CKD-EPI Creatinine Equation (2020) Performed By: #### L 501.9310, L100.0100, L500.4050, L501.9520 #### [facility] [address] [place], [address] Globulin (S) [Mass/Vol] 2.8 g/dL Normal 2.2-4.2 [facility] Comment on above: Order Comment: Order Date: 10/10/24 Order Info: 0786-1 - CMP Order Info: 3026-2 - T4 Order Info: 301-3 - TSH Performed By: #### L 501.9310, L100.0100, L500.4050, L501.9520 #### [facility] [address] [place], [address] Glucose [Mass/Vol] 98 mg/dL Normal 70-99 [facility] Comment on above: Order Comment: Order Date: 10/10/24 Order Info: 0786-1 - CMP Order Info: 3026-2 - T4 Order Info: 3016-3 - TSH Performed By: #### L 501.9310, L100.0100, L500.4050, L501.9520 #### [facility] [address] [place], [address] Potassium [Moles/Vol] 3.6 mmol/L Normal 3.3-5.1 [facility] Comment on above: Order Comment: Order Date: 10/10/24 Order Info: 0786-1 - CMP Order Info: 3026-2 - T4 Order Info: 6-3 - TSH Performed By: #### L 501.9310, L100.0100, L500.4050, L501.9520 #### [facility] [address] [place], [address] Sodium [Moles/Vol] 138 mmol/L Normal 133-145 [facility] Comment on above: Order Comment: Order Date: 10/10/24 Order Info: 0786-1 - CMP Order Info: 6-2 - T4 Order Info: 3 - TSH Performed By: #### L 501.9310, L100.0100, L500.4050, L501.9520 #### [facility] [address] [place], [address] T PROT 6.9 g/dL Normal 5.9-8.4 [facility] Comment on above: Order Comment: Order Date: 10/10/24 Order Info: 0786-1 - CMP Order Info: 6-2 - T4 Order Info: 3 - TSH Performed By: #### L 501.9310, L100.0100, L500.4050, L501.9520 #### [facility] [address] [place], [address] Urea nitrogen [Mass/Vol] 9 mg/dL Normal 4-19 [facility] Comment on above: Order Comment: Order Date: 10/10/24 Order Info: 0786-1 - CMP Order Info: 3026-2 - T4 Order Info: 3015-3 - TSH Performed By: #### L 501.9310, L100.0100, L500.4050, L501.9520 #### [facility] [address] [place], [address] Eosinophil percentageOrdered By: Nataliya Gomez on 11-08-2024 Eosinophils/100 WBC (Bld) 0.5 % 0-5 [facility] Erythrocyte distribution wid th ratioOrdered By: Nataliya Gomez on 11-08-2024 Erythrocyte distribution width (RBC) [Ratio] 13.0 % 11.6-14.6 [facility] Erythrocyte distribution wid th standard deviationOrdered By: Nataliya Gomez on 11-08-2024 Erythrocyte distribution width (RBC) [Ratio] 47.8 fl High 35.1-43.9 [facility] Glomerular filtration rate ( GFR) estimation/1.73 sq m using serum, plasma, or whole bOrdered By: Nataliya Gomez on 11-08-2024 GFR/1.73 sq M.predicted among non-blacks MDRD (S/P/Bld) [Vol rate/Area] 105 mL/min/{1.73_m2} >60 [facility] Comment on above: mL/min/1.73m2 CKD-EP I Creatinine Equation (2020) Hematocrit Auto (Bld) [Volum e fraction]Ordered By: Nataliya Gomez on 11-08-2024 Hematocrit (Bld) [Volume fraction] 42.9 % 37-47 [facility] Hemoglobin measurementOrdere d By: Nataliya Gomez on 11-08-2024 Hemoglobin (Bld) [Mass/Vol] 14.2 g/dL 12.0-15.0 [facility] Immature granulocytes/100 WB C Auto (Bld)Ordered By: Nataliya Gomez on 11-08-2024 Immature granulocytes/100 WBC (Bld) 0.400 % 0.0-0.9 [facility] Comment on above: IG% - Immature Granu locytes (promyelocytes, myelocytes and metamyelocytes) > 1% indicates that a LEFT SHIFT is Present. Laboratory - Chemistry and C hemistry - challengeOrdered By: Nataliya Gomez on 11-08-2024 AST [Catalytic activity/Vol] 18 U/L <32 [facility] MCV (mean corpuscular volume ) determinationOrdered By: Nataliya Gomez on 11-08-2024 MCV (RBC) [Entitic vol] 99.8 fL High 81-99 [facility] Mean corpuscular hemoglobin (MCH) determinationOrdered By: Nataliya Gomez 11-08-2024 MCH (RBC) [Entitic mass] 33.0 pg High 27.0-32.0 [facility] Mean corpuscular hemoglobin concentration (MCHC) determinationOrdered By: Nataliya Gomez on 11-08-2024 MCHC (RBC) [Mass/Vol] 33.1 g/dL 32-36 [facility] Mean platelet volume determi nationOrdered By: Nataliya Gomez on 11-08-2024 Platelet mean volume (Bld) [Entitic vol] 9.8 fL 6.2-12.0 [facility] Monocyte percentageOrdered B y: Nataliya Gomez on 11-08-2024 Monocytes/100 WBC (Bld) 5.9 % 0-10 [facility] Neutrophil percentageOrdered By: Nataliya Gomez on 11-08-2024 Neutrophils/100 WBC (Bld) 67.6 % 47-70 [facility] Nucleated red blood cell per centageOrdered By: Nataliya Gomez on 11-08-2024 Nucleated RBC/100 WBC (Bld) [Ratio] 0 % 0-5 [facility] Platelet countOrdered By: Paulo Gomez on 11-08-2024 Platelets (Bld) [#/Vol] 222 10*3/uL 150-450 [facility] Potassiumon 11-08-2024 Potassium [Moles/Vol] 3.6 mmol/L Normal 3.3-5.1 [facility] Comment on above: Performed By: #### L 503.0106, L506.1001 #### [facility] [address] [place], [place] [address] [place], [address] Potassium measurement (mass/ volume)Ordered By: Moses Montalvo on 11-08-2024 Potassium (Unsp spec) [Mass/Vol] 3.6 mmol/L 3.3-5.1 [facility] RBC Auto (Bld) [#/Vol]Ordere d By: Nataliya Gomez on 11-08-2024 RBC (Bld) [#/Vol] 4.30 10*6/uL 4.2-5.4 [facility] Serum creatinine measurement (mass/volume)Ordered By: Nataliya Gomez on 11-08-2024 Creatinine [Mass/Vol] 0.77 mg/dL 0.70-1.20 [facility] Serum globulin measurementOr dered By: Nataliya Gomez on 11-08-2024 Globulin (S) [Mass/Vol] 2.8 g/dL 2.2-4.2 [facility] Serum glucose measurement (m ass/volume)Ordered By: Nataliya Gomez on 11-08-2024 Glucose [Mass/Vol] 98 mg/dL 70-99 [facility] Serum or plasma alanine wells otransferase (ALT) measurementOrdered By: Nataliya Gomez on 11-08-2024 ALT [Catalytic activity/Vol] 14 U/L <35 [facility] Serum or plasma albumin aparna urement (mass/volume)Ordered By: Nataliya Gomez on 11-08-2024 Albumin [Mass/Vol] 4.1 g/dL 3.5-5.0 [facility] Serum or plasma albumin/glob ulin mass ratioOrdered By: Nataliya Gomez on 11-08-2024 Albumin/Globulin [Mass ratio] 1.5 {ratio} 0.9-2.4 [facility] Serum or plasma alkaline trell sphatase measurementOrdered By: Nataliya Gomez on 11-08-2024 ALP [Catalytic activity/Vol] 56 U/L 35-104 [facility] Serum or plasma calcium aparna urement (mass/volume)Ordered By: Nataliya Gomez on 11-08-2024 Calcium [Mass/Vol] 9.7 mg/dL 7.6-11.0 [facility] Serum or plasma urea nitroge n measurement (mass/volume)Ordered By: Nataliya Gomez on 11-08-2024 Urea nitrogen [Mass/Vol] 9 mg/dL 4-19 [facility] Sodium levelOrdered By: Kinza Gomez on 11-08-2024 Sodium [Moles/Vol] 138 mmol/L 133-145 [facility] T4 Total, Thyroxinon 025 T4 [Mass/Vol] 7.2 ug/dL Normal 4.8-13.9 [facility] Comment on above: Order Comment: Order Date: 10/10/24 Order Info: 0786-1 - CMP Order Info: 3026-2 - T4 Order Info: 3016-3 - TSH Performed By: #### L 501.9310, L100.0100, L500.4050, L501.9520 #### [facility] [address] [place], [address] TSH DL <= 0.005 mIU/L QnOrde red By: Nataliya Gomez on 11-08-2024 TSH Qn 0.666 uIU/mL 0.300-4.200 [facility] Thyroid Stim Hormone (TSH)on 11-08-2024 TSH 0.666 uIU/mL Normal 0.300-4.200 [facility] Comment on above: Order Comment: Order Date: 10/10/24 Order Info: 0786-1 - CMP Order Info: 2 - T4 Order Info: 3015-08 - TSH Performed By: #### L 501.9310, L100.0100, L500.4050, L501.9520 #### [facility] [address] [place], [address] ThyroxineOrdered By: Nataliya Gomez on 11-08-2024 T4 [Mass/Vol] 7.2 ug/dL 4.8-13.9 [facility] Total proteinOrdered By: Diana Gomez on 11-08-2024 Protein [Mass/Vol] 6.9 g/dL 5.9-8.4 [facility] Vitamin B12on 11-08-2024 Cobalamin (Vitamin B12) [Mass/Vol] 633 pg/mL Normal 180-914 [facility] Comment on above: Order Comment: Order Date: 10/10/24 Order Info: 0786-1 - CMP Order Info: 3025-2 - T4 Order Info: 3 - TSH Performed By: #### L 503.0106, L506.1001 #### [facility] [address] [place], [address] Vitamin B12 ser/plasOrdered By: Nataliya Gomez on 11-08-2024 Cobalamin (Vitamin B12) [Mass/Vol] 633 pg/mL 180-914 [facility] Vitamin D,25 Hydroxyon 11-08 Vitamin D 25-OH 43.4 ng/mL Normal 30-100 [facility] Comment on above: Order Comment: Order Date: 10/10/24 Order Info: 0786-1 - CMP Order Info: 3026-2 - T4 Order Info: 3016-3 - TSH Result Comment: Eleni min D Status Deficiency: <20 ng/mL (50nmol/L) Insufficiency: 20-30 ng/mL (50-75 nmol/L) Sufficiency: 30-100 ng/mL (75-250 nmol/L) Toxicity: >100 ng/mL (>250 nmol/L) Performed By: #### L 503.0106, L506.1001 #### [facility] [address] [place], [address] White blood cell (WBC) count Ordered By: Nataliya Gomez on 11-08-2024 WBC (Bld) [#/Vol] 8.2 10*3/uL 4.4-11.0 [facility] 37on 11-07-2024 37 Botox is effective f or treating her migraines but she is ill for 3 days following the injections Will provide samples of Qulipta to dose daily Ubrelvy as needed Normal [facility] Office Visiton 11-07-2024 Follow-up visit [id number] Nikolai Giron 1990 F Date Provider Department Center 11/07/2024 [id number] [facility] TONE None Family History Problem Relation Age of Onset ADD / ADHD Mother Anxiety disorder Mother Depression Mother Migraines Mother Family Status - Relation Status Age at Mother Level of Service:83012 [place] OFFICE/OUTPATIENT ESTABLISHED MOD MDM 30 MIN Reason for Visit and Comments: Follow-up [945890] Migraine [037472] Normal [facility] Progress Noteon 11-07-2024 Progress Note 4 samples of QULIPTA were given to the patient Lot:[id number] Normal [facility] Progress Note Visit type: Establis hed Patient Reason for Visit: Follow-up and Migraine Assessment and Plan 1. Intractable chronic migraine without aura and without status migrainosus Subjective HPI: Failed TPX, Imitrex, Excedrin, Maxalt Given Ajovy and Aimovig approved. Aimovig caused worsening of migraines, Tyrese Began Botox 06/2023 She reports the Botox [...] TSH VITAMIN B12: No results found for: [id number] No results found for: PHENYTOIN, PHENOBARB, VALPROATE, CBMZ No components found for: TOPIRA @RESULTINGLABINFO@ No results found for: LEVETIRACETA, FERRITIN, CRP, FRIEDA, ANCA No results found for: ADELE, IMMUNOGLOBUL, OLIGOBANDS No results found for: DRZ11JA, HEPCAB No results found for: CRP, ANATITER, ANCA FERRITIN: No results found for: FERRITIN ---- MR brain w and wo contrast Narrative: [facility] Name[facility]IR[facility] 1990 [id number] Exam Date/Time: 05/23/2023 15:13 Procedure: MR BRAIN [...] normal li (more content not included)... Normal [facility] Magnetic resonance imaging r eportOrdered By: Kennedy Raygoza on 11-02-2024 Study report [facility] [address] [place] [id number] Spine Lumbar (Routine) MR#: [id number] Acct: [id number] Name: CARLOS GIRON Rep #: [id number] : 1990 F 34 From: Augie Raygoza MD PCP: Dr. Nataliya Gomez MD Status: REG CL I Study:Spine Lumbar (Routine) Date of Exam: 11/02/24 Exam# [id number] Ordering Dr: Diana Gomez MD PROCEDURE: SPINE [...] without direct nerve root compression [facility] CC: Dr. Nataliya Gomez MD ~ End Packer: Signed [facility] Spine Lumbar (Routine)on Spine Lumbar (Routine) [facility] [address] [place] [address] Spine Lumbar (Routine) MR#: [id number] Acct: [id number] Name: CARLOS GIRON Rep #: [id number] : 1990 F 34 From: Kennedy Raygoza MD PCP: Dr. Nataliya Gomez MD Status: REG CLI Study: Spine Lumbar (Routine) Date of Exam: 11/02/24 Exam# [id number] Ordering Dr: Nataliya Gomez MD PROCEDURE: SPINE [...] without direct nerve root compression Reading Location: [facility] CC: Dr. Nataliya Gomez MD End Packer: Signed Normal [facility] ANCAon 11-01-2024 Atypical pANCA <1:20 Normal Neg:<1:20 [facility] Comment on above: Order Comment: Test( s) 664817-Uijtrfeodivoxf; 106433-Sdnnzxlmngf; 468084-Gbefrxsutxv developed and its performance characteristicsdetermined by [facility]. It has not been cleared or approvedby the Food and Drug Administration. Result Comment: The atypical pANCA pattern has been observed in a significant percentage of patients with ulcerative colitis, primary sclerosing cholangitis and autoimmune hepatitis. Performed By: #### M 8200.2203 #### [facility] [place], [address] Cytoplasmic Ab <1:20 Normal Neg:<1:20 [facility] Comment on above: Order Comment: Test( s) 430942-Kgidsmimjadeuf; 546363-Lkgknffapvn; 374038-Lnlirjhyzup developed and its performance characteristicsdetermined by [facility]. It has not been cleared or approvedby the Food and Drug Administration. Performed By: #### M 8200.2203 #### [facility] [address] [place], [place], [address] Perinuclear Ab. <1:20 Normal Neg:<1:20 [facility] Comment on above: Order Comment: Test( s) 675645-Kaziqnaslxbazm; 320318-Sdttkbuawlt; 048951-Lcamoyjzxin developed and its performance characteristicsdetermined by [facility]. It has not been cleared or approvedby [...] up testing of positive sera with both IL- 3 and MPO-ANCA enzyme immunoassays. As many as 5% serum samples are positive only by EIA. Ref. AM J Clin Pathol 1999;111:507-513. Performed By: #### M 8200.2203 #### [facility] [address] [place], [place], [address] Catecholamines, Plasmaon DOPAMINE 12.9 pg/mL Normal 0.0-36.7 [facility] Comment on above: Order Comment: Test( s) 718191-Ecomcovykderew; 261161-Tpudaqbcqlc; 122785-Vannibgoynm developed and its performance characteristicsdetermined by [facility]. It has not been cleared or approvedby the Food and Drug Administration. Performed By: #### M 100.1000 #### [facility] [address] [place], [place], [address] EPINEPHRINE 27.5 pg/mL Normal 0.0-55.4 [facility] Comment on above: Order Comment: Test( s) 910664-Xvbgbhkgwhvvbs; 923171-Lebrwavavhz; 342472-Mmpxauybdwy developed and its performance characteristicsdetermined by [facility]. It has not been cleared or approvedby the Food and Drug Administration. Performed By: #### M 100.1000 #### [facility] [address] [place], [place], [address] NOREPINEPHRINE 529 pg/mL Abnormal 115-524 [facility] Comment on above: Order Comment: Test( s) 616394-Fmdldxveiwhjht; 880304-Oumxltqftgh; 831808-Yfhvumkojkz developed and its performance characteristicsdetermined by [facility]. It has not been cleared or approvedby the Food and Drug Administration. Performed By: #### M 100.1000 #### [facility] [address] [place], [place], [address] Celiac Disease Profileon ENDOMYSIAL IGA Negative Normal Negative [facility] Comment on above: Order Comment: Test( s) 940696-Ebyvlmgcxrgrze; 020797-Zpqzbdaavjv; 019545-Momfdehreku developed and its performance characteristicsdetermined by [facility]. It has not been cleared or approvedby the Food and Drug Administration. Performed By: #### M 8200.2203 #### [facility] [address] [place], [place], [address] tTG IGA <2 Normal 0-3 [facility] Comment on above: Order Comment: Test( s) 597741-Curdkdsnsjktym; 320887-Lsuhvulqeyt; 685709-Ntbeqgfykvd developed and its performance characteristicsdetermined by [facility]. It has not been cleared or approvedby the Food and Drug Administration. Result Comment: Nega tive 0 - 3 Weak Positive 4 - 10 Positive >10 Tissue Transglutaminase (tTG) has been identified as the endomysial antigen. Studies have demonstr- ated that endomysial IgA antibodies have over 99% specificity for gluten sensitive enteropathy. Performed By: #### M 8200.2203 #### [facility] [address] [place], [place], [address] Erythropoietinon 11-01-2024 ERYTHROPOIETIN 9.0 mIU/mL Normal 2.6-18.5 [facility] Comment on above: Order Comment: Test( s) 559696-Ptgacodmawvgiu; 975563-Lqmyicyjrpj; 504729-Dwqgdjewiwc developed and its performance characteristicsdetermined by [facility]. It has not been cleared or approvedby the Food and Drug Administration. Result Comment: [employer] UniCel DxI 800 Immunoassay System Values obtained with different assay methods or kits cannot be used interchangeably. Results cannot be interpreted as absolute evidence of the presence or absence of malignant disease. Performed By: #### M 100.1000 #### [facility] [address] [place], [address] Gastrin, Serumon 11-01-2024 GASTRIN 318 pg/mL High 0-115 [facility] Comment on above: Order Comment: Test( s) 812286-Tpezvnkttsbmbe; 177485-Ovzhotstwzx; 296994-Pgupqliuhab developed and its performance characteristicsdetermined by [facility]. It has not been cleared or approvedby the Food and Drug Administration. Result Comment: [employer] 2000 Immunochemiluminometric assay (ICMA) Values obtained with different assay methods or kits cannot be used interchangeably. Results cannot be interpreted as absolute evidence of the presence or absence of malignant disease. Performed By: #### M 8200.2203 #### [facility] [address] [place], [place], [address] Hepatitis Panel Acuteon 05- HEP B CORE,IgM Negative Normal Negative [facility] Comment on above: Order Comment: Test( s) 246088-Fozjwhzvoebfef; 967903-Zvniydkffbw; 121675-Yrwaswsqyiz developed and its performance characteristicsdetermined by [facility]. It has not been cleared or approvedby the Food and Drug Administration. Performed By: #### M 100.1000 #### [facility] [address] [place], [place], [address] HEP B SURF AG Negative Normal Negative [facility] Comment on above: Order Comment: Test( s) 440142-Oulrjxzbneapyf; 455901-Bgyrklryqnz; 861960-Wntmqnumrwv developed and its performance characteristicsdetermined by [facility]. It has not been cleared or approvedby the Food and Drug Administration. Performed By: #### M 100.1000 #### [facility] [address] [place], [place], [address] HEP C VIRUS AB Non-Reactive Normal Non Reactive [facility] Comment on above: Order Comment: Test( s) 585466-Ldozzkeobchlrh; 931309-Nfgelluieul; 637612-Nwtavtyeeli developed and its performance characteristicsdetermined by [facility]. It has not been cleared or approvedby the Food and Drug Administration. Performed By: #### M 100.1000 #### [facility] [address] [place], [place], [address] HEPATITIS A-IgM Negative Normal Negative [facility] Comment on above: Order Comment: Test( s) 401789-Evzijubyrlioip; 909503-Kwlfwveilhx; 425411-Jvssfenqcbb developed and its performance characteristicsdetermined by [facility]. It has not been cleared or approvedby the Food and Drug Administration. Result Comment: A ne gative anti-HAV IgM result suggests no recent or current HAV infection. Performed By: #### M 100.1000 #### [facility] [address] [place], [place], [address] ADELE + Protein Elect, Serumon 11-01-2024 Albumin [Mass/Vol] 4.0 g/dL Normal 2.9-4.4 [facility] Comment on above: Order Comment: Test( s) 697585-Qdlozvpmbyuvgm; 452272-Doietrohuxu; 699255-Xmvvaqbblhf developed and its performance characteristicsdetermined by [facility]. It has not been cleared or approvedby the Food and Drug Administration.N Performed By: #### M 100.1000 #### [facility] [address] [place], [place], [address] Albumin/Globulin [Mass ratio] 1.2 {ratio} Normal 0.7-1.7 [facility] Comment on above: Order Comment: Test( s) 225956-Wtsneunvmmzyfa; 839115-Ezthzhtpnoa; 772184-Nlrgxlukkra developed and its performance characteristicsdetermined by [facility]. It has not been cleared or approvedby the Food and Drug Administration.N Performed By: #### M 100.1000 #### [facility] [address] [place], [address] SPPCL-5-XUZH 0.3 g/dL Normal 0.0-0.4 [facility] Comment on above: Order Comment: Test( s) 863991-Uphlrjxzxlyfhz; 654186-Ckmnwrcpsyo; 630876-Sutqyiuguit developed and its performance characteristicsdetermined by [facility]. It has not been cleared or approvedby the Food and Drug Administration.N Performed By: #### M 100.1000 #### [facility] [address] [place], [address] WXVET-5-MQZT 0.9 g/dL Normal 0.4-1.0 [facility] Comment on above: Order Comment: Test( s) 810052-Tswhxlyefiepvu; 565859-Vfwahzrkoan; 747065-Bcgbjrkyngv developed and its performance characteristicsdetermined by [facility]. It has not been cleared or approvedby the Food and Drug Administration.N Performed By: #### M 100.1000 #### [facility] [address] [place], [address] (373) BETA GLOBULIN 1.2 g/dL Normal 0.7-1.3 [facility] Comment on above: Order Comment: Test( s) 079644-Stjzoxleiuteaw; 028766-Rwjqcyjvtar; 111470-Cwltyxurwzk developed and its performance characteristicsdetermined by [facility]. It has not been cleared or approvedby the Food and Drug Administration.N Performed By: #### M 100.1000 #### [facility] [address] [place] [place], [address] (798) GAMMA GLOBULIN 1.0 g/dL Normal 0.4-1.8 [facility] Comment on above: Order Comment: Test( s) 139778-Inloncdadoaaut; 924467-Ixypqdzzfgb; 942988-Iyefepmmyzw developed and its performance characteristicsdetermined by [facility]. It has not been cleared or approvedby the Food and Drug Administration.N Performed By: #### M 100.1000 #### [facility] [address] [place], [address] Globulin (S) [Mass/Vol] 3.4 g/dL Normal 2.2-3.9 [facility] Comment on above: Order Comment: Test( s) 974008-Asuvcorerwsbrf; 361133-Vdwgtdcweoe; 387615-Kqlbnjdqhwr developed and its performance characteristicsdetermined by [facility]. It has not been cleared or approvedby the Food and Drug Administration.N Performed By: #### M 100.1000 #### [facility] [address] [place], [place], [address] (339) ADELE RESULT,S Comment Normal . [facility] Comment on above: Order Comment: Test( s) 163862-Ctdspgezbgzcba; 785557-Qtmwqalgpan; 116383-Rqyaqvdufov developed and its performance characteristicsdetermined by [facility]. It has not been cleared or approvedby the Food and Drug Administration.N Result Comment: No m onoclonality detected. Performed By: #### M 100.1000 #### [facility] [address] [place], [address] IMMUNOGLOB A QN 104 mg/dL Normal 87-352 [facility] Comment on above: Order Comment: Test( s) 481717-Thdstnyfcpyyqm; 306343-Kmwztryicvf; 518877-Heranwxbvdv developed and its performance characteristicsdetermined by [facility]. It has not been cleared or approvedby the Food and Drug Administration.N Performed By: #### M 100.1000 #### [facility] [address] [place], [address] IMMUNOGLOB G QN 998 mg/dL Normal 586-1602 [facility] Comment on above: Order Comment: Test( s) 528118-Zxnfrmguguxhyt; 935306-Hwuccgdksxw; 385067-Baoqxfzhdqd developed and its performance characteristicsdetermined by [facility]. It has not been cleared or approvedby the Food and Drug Administration.N Performed By: #### M 100.1000 #### [facility] [address] [place], [place], [address] IMMUNOGLOB M QN 69 mg/dL Normal 26-217 [facility] Comment on above: Order Comment: Test( s) 374418-Orqbjfvfadujst; 114085-Bmjrizabjhz; 431181-Gejyyswuuix developed and its performance characteristicsdetermined by [facility]. It has not been cleared or approvedby the Food and Drug Administration.N Performed By: #### M 100.1000 #### [facility] [address] [place], [place], [address] M-[place] Not Observed Normal Not Observed [facility] Comment on above: Order Comment: Test( s) 680263-Boiydiuxxnrvqc; 918359-Rdvrodumjfv; 094657-Vfkgeimhhbk developed and its performance characteristicsdetermined by [facility]. It has not been cleared or approvedby the Food and Drug Administration.N Performed By: #### M 100.1000 #### [facility] [address] [place], [place], [address] NOTE: Comment Normal . [facility] Comment on above: Order Comment: Test( s) 570561-Lzqbzbkibaooyf; 739044-Zdkhyvisaaq; 179391-Bnevfgfswmn developed and its performance characteristicsdetermined by [facility]. It has not been cleared or approvedby the Food and Drug Administration.N Result Comment: Prot ein electrophoresis scan will follow via computer, mail, or travel counselor delivery. Performed By: #### M 100.1000 #### [facility] [address] [place], [place], [address] Protein [Mass/Vol] 7.4 g/dL Normal 6.0-8.5 [facility] Comment on above: Order Comment: Test( s) 447720-Hwbxenygyzfeqa; 861862-Gnnffupcnvl; 450504-Iulmxrcmvdt developed and its performance characteristicsdetermined by [facility]. It has not been cleared or approvedby the Food and Drug Administration.N Performed By: #### M 100.1000 #### [facility] [address] [place], [address] Immunoglobulins G/A/M/Cy IMMUNOGLOB E QN 4 IU/mL Low 6-495 [facility] Comment on above: Order Comment: Test( s) 316994-Hgqnnktrhrwrzy; 981347-Fxbhdmqzdob; 306212-Fifqkmgsvzl developed and its performance characteristicsdetermined by [facility]. It has not been cleared or approvedby the Food and Drug Administration.N Performed By: #### M 100.1000 #### [facility] [address] [place], [place], [address] JAK2 Mutation Analysison JAK2 COMMENT Comment Normal . [facility] Comment on above: Order Comment: Test( s) 205105-Texxzcavhhuhcd; 647227-Jipdwzlpcep; 354091-Dummjrimqix developed and its performance characteristicsdetermined by [facility]. It has not been cleared or approvedby the Food and Drug Administration. Result Comment: Lani Molina, PhD, [facility] Director, Molecular Oncology [facility] [place] [address] This test was developed and its performance characteristics determined by [facility]. It has not been cleared or approved by the Food and Drug Administration. Performed By: #### M 100.1000 #### [facility] [address] [place], [place], [address] JAK2 COMMENT 2 Comment Normal . [facility] Comment on above: Order Comment: Test( s) 616446-Iujzahvyqxdhut; 755967-Jphuhvzymvy; 156857-Nezuoudrmia developed and its performance characteristicsdetermined by [facility]. It has not been cleared or approvedby the Food and Drug Administration. Result Comment: JAK2 is a cytoplasmic tyrosine kinase with a powell role in signal transduction from multiple hematopoietic growth factor receptors. 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 [employer] Absolute Quantitation software will compare the patient specimen valuse to the standard curves and generate percent values for wild type and mutant type. In vitro studies have indicated that this assay has an analytical sensitivity of 1%. References: Jaime EJ, Marcus PASTOR, Bakari PJ, et al. Acquired mutation of the tyrosine kinase JAK2 in human myeloproliferative disorders. Lancet. 2005 Aug 21; 365(8773):5766-2075. Perry Vizcaino, David V, Lorrie Waller JP. 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 Nature. 2005 Sep 30; 290(0172):6318-0317. Pierce R, Fracisco F, Myles , et al. A gain-of- function mutation of JAK2 in myeloproliferative disorders. N Engl J Med. 2005 Sep 30; 35217):5804-7607. Performed By: #### M 100.1000 #### [facility] [place], [address] JAK2 MUT QUAL Comment Normal . [facility] Comment on above: Order Comment: Test( s) 539179-Fyscejddvnaktl; 451312-Qtajwodbgrn; 867236-Myqcsxkyzkq developed and its performance characteristicsdetermined by YEOXIN VMall. It has not been cleared or approvedby [...] patients with these disorders. Performed By: #### M 100.1000 #### [facility] [address] [place], [address] L2100.0000on 11-01-2024 ACCA 10 units Normal 0-90 [facility] Comment on above: Order Comment: Test( s) 655011-Cronulebzbfnri; 788111-Fyyylmvzecn; 625596-Lnatfjnqrvf developed and its performance characteristicsdetermined by [facility]. It has not been cleared or approvedby the Food and Drug Administration. Result Comment: Nega tive: <80 Equivocal: 80-90 Positive: >90 Performed By: #### M 100.1000 #### [facility] [address] [place], [address] ALCA 3 units Normal 0-60 [facility] Comment on above: Order Comment: Test( s) 063961-Vcnmvrsfbobwtk; 225607-Ufjgmwjgqus; 652869-Bandnjrahbo developed and its performance characteristicsdetermined by [facility]. It has not been cleared or approvedby the Food and Drug Administration. Result Comment: Nega tive:<55 Equivocal: 55-60 Positive: >60 Performed By: #### M 100.1000 #### [facility] [address] [place], [address] AMCA 8 units Normal 0-100 [facility] Comment on above: Order Comment: Test( s) 011337-Wxdbzjrlhzsbkn; 445705-Qllrvkwfhvj; 001404-Vthbkehaklf developed and its performance characteristicsdetermined by [facility]. [...] approval is not necessary. Performed By: #### M 100.1000 #### [facility] [address] [place], [place], [address] Atypical pANCA Negative Normal Negative [facility] Comment on above: Order Comment: Test( s) 433610-Wlpoebscftrezo; 525751-Gxsjltcffav; 615179-Nmbppjeincl developed and its performance characteristicsdetermined by YEOXIN VMall. It has not been cleared or approvedby the Food and Drug Administration. Performed By: #### M 100.1000 #### [facility] [address] [place], [place], [address] COMMENT Comment Normal . [facility] Comment on above: Order Comment: Test( s) 077286-Ljtagayrbfowvp; 123934-Fcgtcmrrzax; 328549-Titcxfaaxnr developed and its performance characteristicsdetermined by YEOXIN VMall. It has not been cleared or approvedby the Food and Drug Administration. Result Comment: Angeles volodymyr is not suggestive of Inflammatory Bowel Disease Performed By: #### M 100.1000 #### [facility] [address] [place], [place], [address] Result Comment: Not infected with HCV unless early or acute infection is suspected (which may be delayed in an immunocompromised individual), or other evidence exists to indicate HCV infection. Dalton 4 units Normal 0-50 [facility] Comment on above: Order Comment: Test( s) 090120-Kmwsvtekpftpzn; 011682-Omhxoboaonc; 636046-Xcsvwdzgwne developed and its performance characteristicsdetermined by YEOXIN VMall. It has not been cleared or approvedby the Food and Drug Administration. Result Comment: Nega tive: <45 Equivocal: 45-50 Positive: >50 Performed By: #### M 100.1000 #### [facility] [address] [place], [place], [address] L3100.4810on 11-01-2024 Chromogranin A 87.6 ng/mL Normal 0.0-101.8 [facility] Comment on above: Order Comment: Test( s) 520527-Ebvicrcbmrecwd; 067912-Ostpqdzhraq; 469109-Gehoaslgsbc developed and its performance characteristicsdetermined by YEOXIN VMall. It has not been cleared or approvedby the Food and Drug Administration. Result Comment: Rubber Stamp Die Inspector mogranin A performed by [employer] KRYPTOR methodology Values obtained with different assay methods or kits cannot be used interchangeably. Performed at: - [facility] [id number] [place], [place] [id number] Main Line Assembler: Fortunato Santiago PhD, Phone: [phone] Performed at: - [facility] [address] [id number] Main Line Assembler: Dia Marquez MD, Phone: [phone] Performed at: [place] [facility] [address] [facility], [place], [place] [id number] Main Line Assembler: Collins Doran [facility], Phone: [phone] Performed at: [place] - [facility] [address] [facility], [place], [place] [id number] Main Line Assembler: Collins Doran [facility], Phone: [phone] Performed By: #### M 100.1000 #### [facility] [address] [place], [place], [id number] FRIEDA Comprehensive Panelon ANTI-DNA (DS)AB 1 IU/mL Normal 0-9 [facility] Comment on above: Result Comment: Nega tive <5 Equivocal 5 - 9 Positive >9 Performed By: #### M 100.1000 #### [facility] [address] [place], [place], [address] ANTI-SS-A < 0.2 Normal 0.0-0.9 [facility] Comment on above: Performed By: #### M 100.1000 #### [facility] [address] [place], [place], [address] ANTI-SS-B < 0.2 Normal 0.0-0.9 [facility] Comment on above: Performed By: #### M 100.1000 #### [facility] [address] [place], [place], [address] Allergen, Food Profileon CLAM <0.10 Normal Class 0 [facility] Comment on above: Performed By: #### M 100.1000 #### [facility] [address] [place], [address] CODFISH <0.10 Normal Class 0 [facility] Comment on above: Performed By: #### M 100.1000 #### [facility] [address] [place], [address] COMMENT Comment Normal . [facility] Comment on above: Result Comment: Mirela ahn of Specific IgE Class Description of Class ----- < 0.10 0 Negative 0.10 - 0.31 0/I Equivocal/Low 0.32 - 0.55 I Low 0.56 - 1.40 II Moderate 1.41 - 3.90 III High 3.91 - 19.00 IV Very High 19.01 - 100.00 V Very High >100.00 Very High Performed By: #### M 100.1000 #### [facility] [address] [place], [address] CORN <0.10 Normal Class 0 [facility] Comment on above: Performed By: #### M 100.1000 #### [facility] [address] [place], [address] EGG, WHITE <0.10 Normal Class 0 [facility] Comment on above: Performed By: #### M 100.1000 #### [facility] [address] [place], [address] MILK (COW) <0.10 Normal Class 0 [facility] Comment on above: Performed By: #### M 100.1000 #### [facility] [address] [place], [address] PEANUT <0.10 Normal Class 0 [facility] Comment on above: Performed By: #### M 100.1000 #### [facility] [address] [place], [address] SCALLOP <0.10 Normal Class 0 [facility] Comment on above: Performed By: #### M 100.1000 #### [facility] [address] [place], [address] SESAME SEED <0.10 Normal Class 0 [facility] Comment on above: Result Comment: Perf ormed at: [facility] [address] [id number] Main Line Assembler: Fortunato Santiago PhD, Phone: [phone] Performed at: [facility] [address] [id number] Main Line Assembler: Dia Marquez MD, Phone: [phone] Performed By: #### M 100.1000 #### [facility] [address] [place], [address] SHRIMP <0.10 Normal Class 0 [facility] Comment on above: Performed By: #### M 100.1000 #### [facility] [address] [place], [address] SOYBEAN <0.10 Normal Class 0 [facility] Comment on above: Performed By: #### M 100.1000 #### [facility] [address] [place], [address] WALNUT,(Food) <0.10 Normal Class 0 [facility] Comment on above: Performed By: #### M 100.1000 #### [facility] [address] [place], [address] WHEAT <0.10 Normal Class 0 [facility] Comment on above: Performed By: #### M 100.1000 #### [facility] [address] [place], [address] [id number] 10-29-2024 [id number] Entered in error Normal [facility] Absolute lymphocyte countOrd ered By: Moses Friend on 10-24-2024 Lymphocytes Auto (Unsp spec) [#/Vol] 3.24 10*3/uL 0.83-4.51 [facility] Absolute neutrophil countOrd ered By: Moses Katia on 10-24-2024 Neutrophils (Bld) [#/Vol] 8.3 10*3/uL High 2.0-7.7 [facility] Albumin Elph [Mass/Vol]Order ed By: Moses Katia on 10-24-2024 Albumin [Mass/Vol] 4.0 g/dL 2.9-4.4 [facility] Amylaseon 10-24-2024 CYNTHIA 52 U/L Normal 28-100 [facility] Comment on above: Performed By: #### M 100.1000 #### [facility] [address] [place], [address] Anion gap in Serum or Plasma Ordered By: Mosesajith Montalvo on 10-24-2024 Anion gap [Moles/Vol] 14 mmol/L 5-15 [facility] Automated lymphocyte count a s percentage of total leukocytesOrdered By: Moses Montalvo on 10-24-2024 Lymphocytes/100 WBC Auto (Unsp spec) 26.4 % 19-41 [facility] BUN/creatinine ratioOrdered By: Mosesmanuelito Montalvo on 10-24-2024 Urea nitrogen/Creatinine [Mass ratio] 11.9 mg/mg 10-20 [facility] Basophil percentageOrdered B y: Mosesajith Montalvo on 10-24-2024 Basophils/100 WBC (Bld) 0.2 % 0-1 [facility] Bilirubin, totalOrdered By: Moses Montalvo on 10-24-2024 Bilirubin [Mass/Vol] 0.28 mg/dL 0.00-1.30 [facility] CBC W/Diff, Automatedon 10-04 Absolute Lymph 3.24 X10 3/uL Normal 0.83-4.51 [facility] Comment on above: Performed By: #### M 100.1000 #### [facility] [address] [place], [address] Absolute Neut 8.3 X10 3/uL High 2.0-7.7 [facility] Comment on above: Performed By: #### M 100.1000 #### [facility] [address] [place], [address] Basophils/100 WBC (Bld) 0.2 % Normal 0-1 [facility] Comment on above: Performed By: #### M 100.1000 #### [facility] [address] [place], [address] Eosinophils/100 WBC (Bld) 0.1 % Normal 0-5 [facility] Comment on above: Performed By: #### M 100.1000 #### [facility] [address] [place], [address] Erythrocyte distribution width (RBC) [Ratio] 13.2 % Normal 11.6-14.6 [facility] Comment on above: Performed By: #### M 100.1000 #### [facility] [address] [place], [address] Hematocrit (Bld) [Volume fraction] 43.7 % Normal 37-47 [facility] Comment on above: Performed By: #### M 100.1000 #### [facility] [address] [place], [address] Hemoglobin (Bld) [Mass/Vol] 14.5 g/dL Normal 12.0-15.0 [facility] Comment on above: Performed By: #### M 100.1000 #### [facility] [address] [place], [address] IG% 0.200 Normal 0.0-0.9 [facility] Comment on above: Result Comment: IG% - Immature Granulocytes (promyelocytes, myelocytes and metamyelocytes) > 1% indicates that a LEFT SHIFT is Present. Performed By: #### M 100.1000 #### [facility] [address] [place], [address] Lymphocytes/100 WBC (Bld) 26.4 % Normal 19-41 [facility] Comment on above: Performed By: #### M 100.1000 #### [facility] [address] [place], [address] MCH (RBC) [Entitic mass] 33.0 pg High 27.0-32.0 [facility] Comment on above: Performed By: #### M 100.1000 #### [facility] [address] [place], [address] MCHC (RBC) [Mass/Vol] 33.2 g/dL Normal 32-36 [facility] Comment on above: Performed By: #### M 100.1000 #### [facility] [address] [place], [address] MCV (RBC) [Entitic vol] 99.5 fL High 81-99 [facility] Comment on above: Performed By: #### M 100.1000 #### [facility] [address] [place], [address] Monocytes/100 WBC (Bld) 5.1 % Normal 0-10 [facility] Comment on above: Performed By: #### M 100.1000 #### [facility] [address] [place], [address] Neutrophils/100 WBC (Bld) 68.0 % Normal 47-70 [facility] Comment on above: Performed By: #### M 100.1000 #### [facility] [address] [place], [address] Nucleated RBC (Bld) [#/Vol] 0 10*3/uL Normal 0-5 [facility] Comment on above: Performed By: #### M 100.1000 #### [facility] [address] [place], [address] Platelet mean volume (Bld) [Entitic vol] 9.9 fL Normal 6.2-12.0 [facility] Comment on above: Performed By: #### M 100.1000 #### [facility] [address] [place], [address] Platelets (Bld) [#/Vol] 239 10*3/uL Normal 150-450 [facility] Comment on above: Performed By: #### M 100.1000 #### [facility] [address] [place], [address] RBC (Bld) [#/Vol] 4.39 10*6/uL Normal 4.2-5.4 [facility] Comment on above: Performed By: #### M 100.1000 #### [facility] [address] [place], [address] RDW SD 48.8 fl High 35.1-43.9 [facility] Comment on above: Performed By: #### M 100.1000 #### [facility] [address] [place], [address] WBC (Bld) [#/Vol] 12.3 10*3/uL High 4.4-11.0 [facility] Comment on above: Performed By: #### M 100.1000 #### [facility] [address] [place], [address] CPK Total, Creatine Kinaseon 10-24-2024 CPK TOTAL 187 U/L Normal 24-195 [facility] Comment on above: Performed By: #### M 100.1000 #### [facility] [address] [place], [address] CRPon 10-24-2024 C-REACTIVE PROT < 3.00 Normal 0.0-3.0 [facility] Comment on above: Performed By: #### M 100.1000 #### [facility] [address] [place], [address] Carbon dioxide, total [Moles /volume] in Central venous bloodOrdered By: Moses Montalvo on 10-24-2024 CO2 [Moles/Vol] 17.3 mmol/L Low 21.0-32.0 [facility] Chitobioside IgA antibody as sayOrdered By: Moses Friend on 10-24-2024 Chitobioside IgA IA Qn 10 units 0-90 [facility] Comment on above: Negative: <80 Equivo robert: 80-90 Positive: >90 Chloride assayOrdered By: Ra pavon Friend on 10-24-2024 Chloride [Moles/Vol] 108 mmol/L 98-108 [facility] Comprehensive Metabolic Prof ilon 10-24-2024 Albumin [Mass/Vol] 4.4 g/dL Normal 3.5-5.0 [facility] Comment on above: Performed By: #### M 100.1000 #### [facility] [address] [place], [address] Albumin/Globulin [Mass ratio] 1.5 {ratio} Normal 0.9-2.4 [facility] Comment on above: Performed By: #### M 100.1000 #### [facility] [address] [place], [address] ALK PHOS 57 U/L Normal 35-104 [facility] Comment on above: Performed By: #### M 100.1000 #### [facility] [address] [place], [address] ALT [Catalytic activity/Vol] 24 U/L Normal <=34 [facility] Comment on above: Performed By: #### M 100.1000 #### [facility] [address] [place], [address] AST [Catalytic activity/Vol] 20 U/L Normal <=31 [facility] Comment on above: Performed By: #### M 100.1000 #### [facility] [address] [place], [address] Bilirubin [Mass/Vol] 0.28 mg/dL Normal 0.00-1.30 [facility] Comment on above: Performed By: #### M 100.1000 #### [facility] [address] [place], [address] BUN/CRE 11.9 RATIO Normal 10-20 [facility] Comment on above: Performed By: #### M 100.1000 #### [facility] [address] [place], [address] Calcium [Mass/Vol] 9.0 mg/dL Normal 7.6-11.0 [facility] Comment on above: Performed By: #### M 100.1000 #### [facility] [address] [place], [address] Chloride [Moles/Vol] 108 mmol/L Normal 98-108 [facility] Comment on above: Performed By: #### M 100.1000 #### [facility] [address] [place], [address] CO2 [Moles/Vol] 17.3 mmol/L Low 21.0-32.0 [facility] Comment on above: Performed By: #### M 100.1000 #### [facility] [address] [place], [address] Creatinine [Mass/Vol] 0.71 mg/dL Normal 0.70-1.20 [facility] Comment on above: Performed By: #### M 100.1000 #### [facility] [address] [place], [address] GAP 14 Normal 5-15 [facility] Comment on above: Performed By: #### M 100.1000 #### [facility] [address] [place], [address] GFR/1.73 sq M.predicted among non-blacks MDRD (S/P/Bld) [Vol rate/Area] 114 mL/min/{1.73_m2} Normal >60 [facility] Comment on above: Result Comment: mL/m in/1.73m2 CKD-EPI Creatinine Equation (2020) Performed By: #### M 100.1000 #### [facility] [address] [place], [address] Globulin (S) [Mass/Vol] 2.9 g/dL Normal 2.2-4.2 [facility] Comment on above: Performed By: #### M 100.1000 #### [facility] [address] [place], [address] Glucose [Mass/Vol] 116 mg/dL High 70-99 [facility] Comment on above: Performed By: #### M 100.1000 #### [facility] [address] [place], [address] Potassium [Moles/Vol] 3.0 mmol/L Low 3.3-5.1 [facility] Comment on above: Performed By: #### M 100.1000 #### [facility] [address] [place], [address] Sodium [Moles/Vol] 140 mmol/L Normal 133-145 [facility] Comment on above: Performed By: #### M 100.1000 #### [facility] [address] [place], [address] T PROT 7.3 g/dL Normal 5.9-8.4 [facility] Comment on above: Performed By: #### M 100.1000 #### [facility] [address] [place], [address] Urea nitrogen [Mass/Vol] 9 mg/dL Normal 4-19 [facility] Comment on above: Performed By: #### M 100.1000 #### [facility] [address] [place], [address] Culture, Throaton 10-24-2024 CUT Normal throat lois isolated. No beta-hemolytic streptococcus isolated. Normal [facility] Comment on above: Performed By: #### M 100.1000 #### [facility] [address] [place], [place], [address] Eosinophil percentageOrdered By: Moses Montalvo on 10-24-2024 Eosinophils/100 WBC (Bld) 0.1 % 0-5 [facility] Erythrocyte Sed Rateon 10-24 SED RATE 11 mm/hr Normal 0-30 [facility] Comment on above: Performed By: #### M 100.1000 #### [facility] [address] [place], [place], [address] Erythrocyte distribution wid th ratioOrdered By: Mosesajith Montalvo on 10-24-2024 Erythrocyte distribution width (RBC) [Ratio] 13.2 % 11.6-14.6 [facility] Erythrocyte distribution wid th standard deviationOrdered By: Mosesajith Montalvo on 10-24-2024 Erythrocyte distribution width (RBC) [Ratio] 48.8 fl High 35.1-43.9 [facility] Erythrocyte sedimentation ra teOrdered By: Moses Montalvo on 10-24-2024 ESR (Bld) [Velocity] 11 mm/h 0-30 [facility] Gastrin, serumOrdered By: Ra librado Montalvo on 10-24-2024 Gastrin [Mass/Vol] 318 pg/mL High 0-115 [facility] Comment on above: Siemens Immulite 200 0 Immunochemiluminometric assay (ICMA)Values obtained with different assay methods or kits cannotbe used interchangeably. Results cannot be interpreted asabsolute evidence of the presence or absence of malignantdisease. Gastroenterology Visit Repor ton 10-24-2024 Gastroenterology Visit Report [facility] [address] [place] [address] OFFICE VISIT Date of Service: 10/24/24 MR#: [id number] Acct: [id number] Name: CARLOS GIRON Rep #: [id number] : 1990 Provider: Moses Montalvo DO Age/Sex: 34/F Location: [facility] Status: Signed Intake Vital Signs 12/21/23 10:27 10/23/24 12:56 Height 5 ft 6 in 5 ft 6 in Intake Visit Reasons: Nausea Allergies codeine Adverse Reaction (Verified 10/24/24 10:54) Upset Stomach hydrocodone bitartrate (From Vicodin) Adverse Reaction (Verified 10/24/24 10:54) Upset Stomach PFSH Medical History (Updated 10/24/24 @ 11:[address] Lopes Friend, DO) IBS (irritable bowel syndrome) Bipolar disorder Low back pain Depression Anxiety Social History (Updated 10/24/24 @ 10:56 by Meme Suazo) housing: apartment current occupational status: disabled Smoking Status: Current every day smoker tobacco type: e-cigarettes alcohol intake: never substance use type: marijuana what type of physical activity do you participate in: walking HPI HPI Details: CARLOS GIRON, is a 34 F who presents to the office today for initial consult. *BGI established 10.24.24 pt reports long history of IBS; daily [...] - Unspecif (more content not included)... Normal [facility] Glomerular filtration rate ( GFR) estimation/1.73 sq m using serum, plasma, or whole bOrdered By: Moses Montalvo on 10-24-2024 GFR/1.73 sq M.predicted among non-blacks MDRD (S/P/Bld) [Vol rate/Area] 114 mL/min/{1.73_m2} >60 [facility] Comment on above: mL/min/1.73m2 CKD-EP I Creatinine Equation (2020) Hematocrit Auto (Bld) [Volum e fraction]Ordered By: Moses Montalvo on 10-24-2024 Hematocrit (Bld) [Volume fraction] 43.7 % 37-47 [facility] Hemoglobin measurementOrdere d By: Moses Montalvo on 10-24-2024 Hemoglobin (Bld) [Mass/Vol] 14.5 g/dL 12.0-15.0 [facility] IgEOrdered By: Moses soto on 10-24-2024 IgE 4 IU/mL Low 6-495 [facility] Immature granulocytes/100 WB C Auto (Bld)Ordered By: Moses Montalvo on 10-24-2024 Immature granulocytes/100 WBC (Bld) 0.200 % 0.0-0.9 [facility] Comment on above: IG% - Immature Granu locytes (promyelocytes, myelocytes and metamyelocytes) > 1% indicates that a LEFT SHIFT is Present. Interpretation of serum or p lasma protein pattern by immunofixation (narrative resultOrdered By: Moses Montalvo on 10-24-2024 Protein Fractions Immunofixation Joey [Interp] Not Observed g/dL Not Observed [facility] - Chemistry and C hemistry - challengeOrdered By: Moses Montalvo on 10-24-2024 AST [Catalytic activity/Vol] 20 U/L <32 [facility] - Miscellaneous t estsOrdered By: Moses Montalvo on 10-24-2024 Laboratory comment Joey (Report) Comment . [facility] Comment on above: Pattern is not sugge stive of Inflammatory Bowel Disease Service comment (Unsp spec) [Interp] Comment . [facility] Comment on above: Levels of Specific I [...] Laminaribioside IgG IA Qn 3 units 0-60 [facility] Comment on above: Negative:<55 Equivoc al: 55-60 Positive: >60 Lipaseon 10-24-2024 Lipase [Catalytic activity/Vol] 28 U/L Normal 13-75 [facility] Comment on above: Result Comment: Kait guy note: LIPASE revised reference range effective 22. New Lipase methodology. Expected to produce lower values than the previous assay method. NEW Reference Range: 13 - 75 U/L Performed By: #### M 100.1000 #### [facility] [address] [place], [address] Lipase measurementOrdered By : Moses Montalvo on 10-24-2024 Lipase [Catalytic activity/Vol] 28 U/L 13-75 [facility] Comment on above: Please note:LIPASE r evised reference range effective 22. New Lipase methodology. Expected to produce lower values than the previous assay method. NEW Reference Range: 13 - 75 U/L MCV (mean corpuscular volume ) determinationOrdered By: Moses Montalvo on 10-24-2024 MCV (RBC) [Entitic vol] 99.5 fL High 81-99 [facility] Magnesiumon 10-24-2024 Magnesium [Mass/Vol] 2.0 mg/dL Normal 1.5-2.2 [facility] Comment on above: Performed By: #### M 100.1000 #### [facility] [address] [place], [address] Magnesium measurement (mass/ volume)Ordered By: Moses Montalvo on 05-22-2025 Magnesium (Unsp spec) [Mass/Vol] 2.0 mg/dL 1.5-2.2 [facility] Mean corpuscular hemoglobin (MCH) determinationOrdered By: Moses Montalvo on 10-24-2024 MCH (RBC) [Entitic mass] 33.0 pg High 27.0-32.0 [facility] Mean corpuscular hemoglobin concentration (MCHC) determinationOrdered By: Moses Montalvo on 10-24-2024 MCHC (RBC) [Mass/Vol] 33.2 g/dL 32-36 [facility] Mean platelet volume determi nationOrdered By: Mosesmanuelito Montalvo on 10-24-2024 Platelet mean volume (Bld) [Entitic vol] 9.9 fL 6.2-12.0 [facility] Monocyte percentageOrdered B y: Mosesajith Montalvo on 10-24-2024 Monocytes/100 WBC (Bld) 5.1 % 0-10 [facility] Neutrophil percentageOrdered By: Mosesmanuelito Montalvo on 10-24-2024 Neutrophils/100 WBC (Bld) 68.0 % 47-70 [facility] No Panel InformationOrdered By: Moses Montalvo on 10-24-2024 Addendum Document Comment . [facility] Comment on above: Protein electrophore sis scan will follow via computer,mail, or travel counselor delivery. Hepatitis C Antibody Comment Comment . [facility] Comment on above: Not infected with HC V unless early or acute infection issuspected (which may be delayed in an immunocompromisedindividual), or other evidence exists to indicate HCVinfection. JAK2 Mutation Comment . [facility] Comment on above: Lani Molina, PhD, FACM GDirector, Molecular OncologyLabco Center for Molecular Biology and PathologyResEncinitas, [place] [phone] test was developed and its performance characteristicsdetermined by YEOXIN VMall. It has not been cleared orapproved by the Food and Drug Administration. JAK2 V617F Reviewed By Comment . [facility] Comment on above: JAK2 is a cytoplasmi c tyrosine kinase with a powell role insignal transduction from multiple hematopoietic growthfactor receptors. 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 The [employer] Absolute Quantitation softwarewill compare the patient specimen valuse to the standardcurves and generate percent values for wild type andmutant type. In vitro studies have indicated that thisassay has an analytical sensitivity of 1%.References:Jaime EJ, Marcus PASTOR, Bakari PJ, et al. Acquiredmutation of the tyrosine kinase JAK2 in humanmyeloproliferative disorders. Lancet. 2005 Aug 21;365(9777):3284-3980. Perry Vizcaino, David V, Lorrie Waller MELBA. Aunique clonal JAK2 mutation leading to constitutivesignaling causes polycythaemia vera. Nature. 2005 Sep 30;562(7961):1212-2226.Pierce R, Fracisco F, Myles , et al. A cyro-ao-eaguqfec mutation of JAK2 in myeloproliferative disorders.N Engl J Med. 2005 Sep 30; 35217):6843-3367. Nucleated red blood cell per centageOrdered By: Moses Montalvo on 10-24-2024 Nucleated RBC/100 WBC (Bld) [Ratio] 0 % 0-5 [facility] Phosphoruson 10-24-2024 Phosphate [Mass/Vol] 2.8 mg/dL Normal 2.7-4.5 [facility] Comment on above: Performed By: #### M 100.1000 #### [facility] [address] [place], [place], [address] Plasma epinephrine measureme nt (mass/volume)Ordered By: Moses Montalvo on 10-24-2024 EPINEPHrine (P) [Mass/Vol] 27.5 pg/mL 0.0-55.4 [facility] Plasma norepinephrine measur ement (mass/volume)Ordered By: Moses Montalvo on 10-24-2024 Norepinephrine (P) [Mass/Vol] 529 pg/mL High 115-524 [facility] Platelet countOrdered By: Ra librado Montalvo on 10-24-2024 Platelets (Bld) [#/Vol] 239 10*3/uL 150-450 [facility] Potassium measurement (mass/ volume)Ordered By: Moses Montalvo on 10-24-2024 Potassium (Unsp spec) [Mass/Vol] 3.0 mmol/L Low 3.3-5.1 [facility] RBC Auto (Bld) [#/Vol]Ordere d By: Moses Montalvo on 10-24-2024 RBC (Bld) [#/Vol] 4.39 10*6/uL 4.2-5.4 [facility] Serum DNA double strand anti body assay (units/volume)Ordered By: Moses Montalvo on 10-24-2024 DNA double strand Ab Qn (S) 1 [IU]/mL 0-9 [facility] Comment on above: Negative <5 Equivoca l 5 - 9 Positive >9 Serum Scl-70 antibody assay (units/volume)Ordered By: Moses Montalvo on 10-24-2024 SCL-70 extractable nuclear Ab Qn (S) TNP [facility] Comment on above: Test not performed SCL-70 extractable nuclear Ab Qn (S) <0.2 AI 0.0-0.9 [facility] Comment on above: Previous reported re sult: TNP AIEdited by: DENZEL on 10/30/24:0908 AMENDED REPORT 10/30/24 0908 ANTISCLER previously reported as: Test not performed Serum black walnut IgE antib liz assay (units/volume)Ordered By: Moses Montalvo on 10-24-2024 Black [place] IgE Qn (S) <0.10 kU/L Class 0 [facility] Serum chromogranin A measure mentOrdered By: Moses Montalvo on 10-24-2024 Serum chromogranin A measurement 87.6 ng/mL 0.0-101.8 [facility] Comment on above: Chromogranin A perfo rmed by [employer] KRYPTORmethodologyValues obtained with different assay methods or kits cannotbe used interchangeably.Performed at: [facility] [place] [id number] [place], [place] [id number] Director: Fortunato Santiago PhD, Phone: [phone] at: [address] [id number] Director: Dia Marquez MD, Phone: [phone] at: [facility] [employer] [id number] [place], [place] [id number] Director: Collins Doran [facility], Phone: [phone] at: [facility] [id number] [place], [place] [id number] Director: Collins Doran [facility], Phone: [phone] Serum clam IgE antibody assa y (units/volume)Ordered By: Moses Montalvo on 10-24-2024 Clam IgE Qn (S) <0.10 kU/L Class 0 [facility] Serum classic neutrophil cyt oplasmic antibody assay (units/volume)Ordered By: Moses Montalvo on 10-24-2024 Neutrophil cytoplasmic Ab.classic Qn (S) <1:20 titer Neg:<1:20 [facility] Serum codfish IgE antibody a ssay (units/volume)Ordered By: Moses Montalvo on 10-24-2024 Codfish IgE Qn (S) <0.10 kU/L Class 0 [facility] Serum corn IgE antibody assa y (units/volume)Ordered By: Moses Montalvo on 10-24-2024 Shelby IgE Qn (S) <0.10 kU/L Class 0 [facility] Serum cow milk IgE antibody assay (units/volume)Ordered By: Moses Montalvo on 10-24-2024 Cow milk IgE Qn (S) <0.10 kU/L Class 0 [facility] Serum creatinine measurement (mass/volume)Ordered By: Moses Montalvo on 10-24-2024 Creatinine [Mass/Vol] 0.71 mg/dL 0.70-1.20 [facility] Serum egg white IgE antibody assay (units/volume)Ordered By: Moses Montalvo on 10-24-2024 Egg white IgE Qn (S) <0.10 kU/L Class 0 [facility] Serum globulin measurementOr dered By: Moses Montalvo on 10-24-2024 Globulin (S) [Mass/Vol] 2.9 g/dL 2.2-4.2 [facility] Serum globulin measurement ( mass/volume)Ordered By: Moses Montalvo on 10-24-2024 Globulin (S) [Mass/Vol] 3.4 g/dL 2.2-3.9 [facility] Serum glucose measurement (m ass/volume)Ordered By: Moses Montalvo on 10-24-2024 Glucose [Mass/Vol] 116 mg/dL High 70-99 [facility] Serum or plasma C reactive p rotein measurement (mass/volume)Ordered By: Moses Montalvo on 10-24-2024 CRP [Mass/Vol] mg/L 0.0-3.0 [facility] Serum or plasma IgA measurem ent (mass/volume)Ordered By: Moses Montalvo on 10-24-2024 IgA [Mass/Vol] 104 mg/dL 87-352 [facility] Serum or plasma IgG measurem ent (mass/volume)Ordered By: Moses Montalvo on 10-24-2024 IgG [Mass/Vol] 998 mg/dL 586-1602 [facility] Serum or plasma alanine wells otransferase (ALT) measurementOrdered By: Moses Montalvo on 10-24-2024 ALT [Catalytic activity/Vol] 24 U/L <35 [facility] Serum or plasma albumin aparna urement (mass/volume)Ordered By: Moses Montalvo on 10-24-2024 Albumin [Mass/Vol] 4.4 g/dL 3.5-5.0 [facility] Serum or plasma albumin/glob ulin mass ratioOrdered By: Moses Montalvo on 10-24-2024 Albumin/Globulin [Mass ratio] 1.5 {ratio} 0.9-2.4 [facility] Serum or plasma alkaline trell sphatase measurementOrdered By: Moses Montalvo on 10-24-2024 ALP [Catalytic activity/Vol] 57 U/L 35-104 [facility] Serum or plasma alpha 1 glob ulin measurement by electrophoresis (mass/volume)Ordered By: Moses Montalvo on 10-24-2024 Alpha 1 globulin Elph [Mass/Vol] 0.3 g/dL 0.0-0.4 [facility] Alpha 1 globulin Elph [Mass/Vol] 0.9 g/dL 0.4-1.0 [facility] Serum or plasma amylase aparna urement (enzymatic activity/volume)Ordered By: Moses Montalvo on 10-24-2024 Amylase [Catalytic activity/Vol] 52 U/L 28-100 [facility] Serum or plasma beta globuli n measurement by electrophoresis (mass/volume)Ordered By: Moses Montalvo on 10-24-2024 Beta globulin Elph [Mass/Vol] 1.2 g/dL 0.7-1.3 [facility] Serum or plasma calcium aparna urement (mass/volume)Ordered By: Moses Montalvo on 10-24-2024 Calcium [Mass/Vol] 9.0 mg/dL 7.6-11.0 [facility] Serum or plasma creatine kin ase activityOrdered By: Moses Montalvo on 10-24-2024 CK [Catalytic activity/Vol] 187 U/L 24-195 [facility] Serum or plasma dopamine mikael surement (mass/volume)Ordered By: Moses Montalvo on 10-24-2024 DOPamine [Mass/Vol] 12.9 pg/mL 0.0-36.7 [facility] Serum or plasma erythropoiet in (EPO) measurement (units/volume)Ordered By: Moses Montalvo on 10-24-2024 Erythropoietin (EPO) Qn 9.0 mIU/mL 2.6-18.5 [facility] Comment on above: [employer] el DxI 800 Immunoassay SystemValues obtained with different assay methods or kits cannotbe used interchangeably. Results cannot be interpreted asabsolute evidence of the presence or absence of malignantdisease. Serum or plasma gamma globul in measurement by electrophoresis (mass/volume)Ordered By: Moses Montalvo on 10-24-2024 Gamma globulin Elph [Mass/Vol] 1.0 g/dL 0.4-1.8 [facility] Serum or plasma hepatitis B virus surface antigen detection by immunoassayOrdered By: Moses Montalvo on 10-24-2024 HBV surface Ag IA Ql Negative Negative [facility] Serum or plasma immunoelectr ophoresis interpretation (nominal result)Ordered By: Moses Montalvo on 10-24-2024 Interpretation IEP [Interp] Comment . [facility] Comment on above: No monoclonality det ected. Serum or plasma mannobioside IgG antibody assay by immunoassay (units/volume)Ordered By: Moses Montalvo on 10-24-2024 Mannobioside IgG IA Qn 8 units 0-100 [facility] Comment on above: Negative: <90 Equivo robert: 90-100 Positive: >100 This test was developed and its performance characteristics determined by YEOXIN VMall. It has not been cleared or approved by the Food and Drug Administration. The FDA has determined that such clearance or approval is not necessary. Serum or plasma protein aparna urement (mass/volume)Ordered By: Moses Montalvo on 10-24-2024 Protein [Mass/Vol] 7.4 g/dL 6.0-8.5 [facility] Serum or plasma urea nitroge n measurement (mass/volume)Ordered By: Moses Montalvo on 10-24-2024 Urea nitrogen [Mass/Vol] 9 mg/dL 4-19 [facility] Serum peanut IgE antibody as say (units/volume)Ordered By: Moses Montalvo on 10-24-2024 Peanut IgE Qn (S) <0.10 kU/L Class 0 [facility] Serum perinuclear neutrophil cytoplasmic antibody titer by immunofluorescenceOrdered By: Moses Montalvo on 10-24-2024 Neutrophil cytoplasmic Ab.perinuclear IF (S) [Titer] <1:20 titer Neg:<1:20 [facility] Comment on above: The presence of posi tive fluorescence exhibiting P-ANCA orC-ANCA patterns alone is not specific for the diagnosis ofWegener's Granulomatosis (WG) or microscopic polyangiitis.Decisions about treatment should not be based solely onANCA IFA results. The International ANCA Group Consensusrecommends follow up testing of positive sera with both IL-3 and MPO-ANCA enzyme immunoassays. As many as 5% serumsamples are positive only by EIA. Ref. AM J Clin Heomzy1160;111:507-513. Serum soybean IgE antibody a ssay (units/volume)Ordered By: Moses Montalvo on 10-24-2024 Soybean IgE Qn (S) <0.10 kU/L Class 0 [facility] Serum tissue transglutaminas e (tTG) IgA antibody assay (units/volume)Ordered By: Moses Montalvo on 10-24-2024 tTG IgA Qn (S) <2 U/mL 0-3 [facility] Comment on above: Negative 0 - 3 Weak Positive 4 - 10 Positive >10 Tissue Transglutaminase (tTG) has been identified as the endomysial antigen. Studies have demonstr- ated that endomysial IgA antibodies have over 99% specificity for gluten sensitive enteropathy. Serum wheat IgE antibody ass ay (units/volume)Ordered By: Moses Montalvo on 10-24-2024 Wheat IgE Qn (S) <0.10 kU/L Class 0 [facility] Sodium levelOrdered By: Sophy Vega on 10-24-2024 Sodium [Moles/Vol] 140 mmol/L 133-145 [facility] Total proteinOrdered By: Robby Montalvo on 10-24-2024 Protein [Mass/Vol] 7.3 g/dL 5.9-8.4 [facility] Vitamin B12on 10-24-2024 Cobalamin (Vitamin B12) [Mass/Vol] 627 pg/mL Normal 180-914 [facility] Comment on above: Performed By: #### M 100.1000 #### [facility] [address] [place] [address], [address] Vitamin B12 ser/plasOrdered By: Moses Montalvo on 10-24-2024 Cobalamin (Vitamin B12) [Mass/Vol] 627 pg/mL 180-914 [facility] White blood cell (WBC) count Ordered By: Moses Montalvo on 10-24-2024 WBC (Bld) [#/Vol] 12.3 10*3/uL High 4.4-11.0 [facility] Bilirubin Test strip Ql (U)O rdered By: Humphrey Andrew on 10-23-2024 Bilirubin Ql (U) Negative Negative [facility] Emergency Department Summary on 10-23-2024 Emergency Department Summary [facility] Medical Records Department [address] [place] [address] Emergency Department Summary 10/23/24 MR#: [id number] Acct: [id number] Name: CARLOS GIRON Rep #: [id number] : 1990 34 From: Humphrey Peres PCP: [...] protection. Denies history of STDs. 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 [...] Sensorium / (more content not included)... Normal [facility] Ketones Test strip Ql (U)Ord ered By: Humphrey Andrew on 10-23-2024 Ketones Ql (U) Negative Negative [facility] M100.677on 10-23-2024 M100.677 Negative Normal [facility] Comment on above: Performed By: #### L 503.0106, L506.1001 #### [facility] [address] [place], [address] M8200.2203on 10-23-2024 M8200.2203 REDRAW. PREVIOUS SPECIMEN REJECTED DUE TO QNS NEED 10 ML. 10/23/24 1436 [address] [place]. Chlamydia Trachomatis PCR NEGATIVE for Chlamydia trachomatis N. gonorrhoeae PCR Negative for N. gonorrhoeae Normal [facility] Comment on above: Performed By: #### M 8200.2203 #### [facility] [address] [place], [address] Microscopic analysis of urin e for red blood cells (RBC)Ordered By: Humphrey Andrew on 10-23-2024 Microscopic analysis of urine for red blood cells (RBC) 0-5 SEEN /hpf 0-5 [facility] Mucus LM Ql (Urine sed)Order ed By: Humphrey Andrew on 10-23-2024 Mucus Ql (Urine sed) 2+ /hpf [facility] Nitrite Test strip Ql (U)Ord ered By: Humphrey Andrew on 10-23-2024 Nitrite Ql (U) Negative Negative [facility] ,Urineon 10-23-2024 Beta HCG ( test) Ql (U) Negative Normal [facility] Comment on above: Result Comment: Very dilute urine specimens, as indicated by a low specific gravity, may not contain new accounts representative levels of hCG. If is still suspected, a first morning urine specimen should be collected 48 hours later and tested. Performed By: #### L 503.0106, L506.1001 #### [facility] [address] [place], [place], [address] Protein Test strip Ql (U)Ord ered By: Humphrey Andrew on 10-23-2024 Protein Ql (U) 30 mg/dl High Negative [facility] Squamous epithelial cells de tection in urine sediment by light microscopyOrdered By: Humphrey Andrew on 10-23-2024 Epithelial cells.squamous LM Ql (Urine sed) 0-5 SEEN /hpf 5-10 [facility] Streptococcus pyogenes rRNA detection in throat by DNA probeOrdered By: Humphrey Andrew on 10-23-2024 S. pyogenes rRNA Probe Ql (Throat) [facility] Throat specimen bacteria yolanda ntification by cultureOrdered By: Humphrey Andrew on 10-23-2024 Bacteria identified Cx Nom (Throat) streptococcus isolated. [facility] Trichomonas vaginalis detect ion by wet preparationOrdered By: Humphrey Andrew on 10-23-2024 T. vaginalis Wet prep Ql (Unsp spec) [facility] Urinalysis, Completeon 10-23 Mucus Ql (Urine sed) 2+ /hpf Normal [facility] Comment on above: Order Comment: Order Date: 10/10/24 Order Info: [id number] - CMP Order Info: 3026-2 - T4 Order Info: 3015-3 - TSH Performed By: #### L 503.0106, L506.1001 #### [facility] [address] [place], [address] URIC CRYSTALS 1+ /hpf Normal [facility] Comment on above: Order Comment: Order Date: 10/10/24 Order Info: [id number] - CMP Order Info: 3026-2 - T4 Order Info: 3015-3 - TSH Performed By: #### L 503.0106, L506.1001 #### [facility] [address] [place], [address] EPI,SQUAMOUS 0-5 SEEN Normal 5-10 [facility] Comment on above: Order Comment: Order Date: 10/10/24 Order Info: [id number] - CMP Order Info: 3026-2 - T4 Order Info: 3016-3 - TSH Performed By: #### L 503.0106, L506.1001 #### [facility] [address] [place], [address] RBC 0-5 SEEN Normal 0-5 [facility] Comment on above: Order Comment: Order Date: 10/10/24 Order Info: 86-1 - CMP Order Info: 3026-2 - T4 Order Info: [id number] - TSH Performed By: #### L 503.0106, L506.1001 #### [facility] [address] [place], [address] WBC 0-5 SEEN Normal 0-5 [facility] Comment on above: Order Comment: Order Date: 10/10/24 Order Info: [id number] - CMP Order Info: 3026-2 - T4 Order Info: 301-3 - TSH Performed By: #### L 503.0106, L506.1001 #### [facility] [address] [place], [address] BACTERIA 0 SEEN Normal None Seen [facility] Comment on above: Order Comment: Order Date: 10/10/24 Order Info: [id number] - CMP Order Info: 3026-2 - T4 Order Info: 3016-3 - TSH Performed By: #### L 503.0106, L506.1001 #### [facility] [address] [place], [address] Urine clarityOrdered By: Jono Andrew on 10-23-2024 Clarity (U) Cloudy Clear [facility] Urine color determinationOrd ered By: Humphrey Andrew on 10-23-2024 Color (U) Yellow Yellow [facility] Urine glucose detectionOrder ed By: Humphrey Andrew on 10-23-2024 Glucose Ql (U) Normal mg/dl Normal [facility] Urine leukocyte esterase det ection by dipstickOrdered By: Humphrey Andrew on 10-23-2024 Leukocyte esterase Test strip Ql (U) Negative Negative [facility] Urine pHOrdered By: Humphrey Andrew on 10-23-2024 pH (U) 5.0 [pH] 5.0 - 8.0 [facility] Urine testOrdered By: Humphrey Andrew on 10-23-2024 HCG ( test) Ql (U) Negative [facility] Comment on above: Very dilute urine sp ecimens, as indicated by a low specificgravity, may not contain new accounts representative levels of hCG. If is still suspected, a first morning urinespecimen should be collected 48 hours later and tested. Urine sediment bacteria coun t by microscopy (number/high power field)Ordered By: Humphrey Andrew on 10-23-2024 Bacteria LM.HPF (Urine sed) [#/Area] 0 /[HPF] None Seen [facility] Urine sediment uric acid cry stal count by microscopy (number/high power field)Ordered By: Humphrey Andrew on 10-23-2024 Urate crystals LM.HPF (Urine sed) [#/Area] 1 /[HPF] [facility] Urine specific gravity measu rementOrdered By: Humphrey Andrew on 10-23-2024 Specific gravity (U) [Rel density] 1.020 1.002-1.030 [facility] Urine urobilinogen measureme ntOrdered By: Humphrey Andrew on 10-23-2024 Urobilinogen Ql (U) Normal mg/dl Normal [facility] Wet Prep Trichamonason 10-23 WP Motile Trichomonas NONE SEEN WBC N Normal [facility] Comment on above: Performed By: #### L 503.0106, L506.1001 #### [facility] [address] [place], [address] White blood cell countOrdere d By: Humphrey Andrew on 10-23-2024 White blood cell count 0-5 SEEN /hpf 0-5 [facility] 36on 10-21-2024 36 Med request/call nash manuel to Dr Kwok and [facility] sent [facility] Progress Noteon 10-21-2024 Progress Note Ocella - no aura [facility] 36on 10-18-2024 36 Patient states the Nunu salazar is not covered and wants to know if she get get another medication prescribed. She states she wants to continue not having periods and doesn't want it to cause weight gain. Please call and advise. Thank you. [facility] 36on 10-16-2024 36 Prior Auth Slynd initiated through Covermymeds. Powell: [id number] [place] denied: [facility] 36 Name of caller: Fadumo lee Contact phone number: [phone] Relationship to Patient: patient Provider: Kerri Practice: [...] business hours to return their call: Yes [facility] Office Visiton 10-16-2024 Follow-up visit [id number] Nikolai Giron 1990 F Date Provider Department Center 10/16/2024 [id number]-KABUCIBYYTVALERI COELLO [facility] Offi Family History Problem Relation Age of Onset ADD / ADHD Mother Anxiety disorder Mother Depression Mother Migraines Mother Family Status - Relation Status Age at Mother Level of Service:[address] [place] OFFICE/OUTPATIENT ESTABLISHED LOW MDM 20 MIN Reason for Visit and Comments: Contraception [60] - Discuss alternative BC Previously on depo, last injection in August Patient noticing weight gain No periods with depo, Denies pelvic pain [facility] Progress Noteon 10-16-2024 Progress Note Chief Complaint [...] dry Psych - normal affect and behavior Carlos was seen today for contraception. Diagnoses and [...] Back pain Bipolar 2 disorder (CMS/HCC) ([facility]) Cluster headache Depression 2004 Headache 2021 Headache, tension-type 2021 Insomnia 2004 Migraine 2021 Sleep apnea 2006 [2] Past Surgical History: Procedure Laterality Date ANTERIOR CRUCIATE LIGAMENT REPAIR APPENDECTOMY APPENDECTOMY SECTION (HISTORICAL) [3] Allergies Allergen Reactions Codeine Nausea And Vomiting Other reaction(s): GI Upset Hydrocodone-Acetaminophe n Nausea And Vomiting Other reaction(s): GI Upset Ibuprofen Other reaction(s): GI Upset Normal [facility] Culture, Throaton 10-05-2024 CUT Ampicillin can be us ed for Beta-Lactamase negative isolates. Bacteria Throat Cult Trimeth/Sulfa, Chloramphenicol, Cefotaxime, Ciprofloxacin, Amoxicillin/Clavulanic Acid, and Oral 2nd/3rd Generation Cephalosporins are effective against both Beta-Lactamase positive and Beta-Lactamase negative isolates. Haemophilus influenzae Amount Growth Rare Beta Lactamase-Reportable Negative Normal [facility] Comment on above: Performed By: #### M 100.1000 #### [facility] [address] [place], [address] Throat specimen bacteria yolanda ntification by cultureOrdered By: Sid Villarreal on 10-03-2024 Bacteria identified Cx Nom (Throat) Haemophilus influenzae Abnormal [facility] 36on 09-23-2024 36 Noted. Pt was scheduled Normal S 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 B: Pt has gained 40 lbs over the past year. A: Pt thinks this is due to the Depo Provera shot. She would like an appt [facility] some time in October and around noon. R: Pt states she just received message from office and they scheduled the visit for her. Asked pt to call back if further assistance is needed. [facility] [address] Kwok's Tanesha WADE [facility] 36 Name of caller: Fadumo lee Contact phone number: [phone] Relationship to Patient: patient Provider: Dr. Kwok Practice: [facility] Chief Complaint/Reason for Call: Carlos states that the Depo injections are causing her to gain a lot of weight and she would like to know if she could stop the injections and use a different contraceptive. Please advise. Best time of day caller can be reached: Any Patient advised that office/PCP has 24-48 business hours to return their call: Yes [facility] 36on 09-05-2024 36 Patient has been contacted [place] [address] Please call pt to se t up an appt [facility] 36on 09-04-2024 36 Noted [place] [address] patient has been notified of providers message She states she will try one more time and if it happens again she will stop the botox injections [place] [address] We will cancel the B otox per her request [place] [address] Spoke with patient s he stated the symptoms started 1 week after her botox injections. She also has scabs on her head. [facility] 36 Lm for patient to ca ll the office back, please relay providers message. [place] [address] Those symptoms she i s having are NOT from the Botox. She needs to contact her PCP [place] [address] Having reaction from Botox, flu like symptoms for 3-4 days on head. States she called in and spoke with nurse this AM, was calling back in during office hours to reach someone in office. RN called [facility] neuro backline for further assistance. Office staff advised encounter has been routed to Christina and she will reach out after reviewed. Patient made aware. States it is not an emergency but just wanted to let her know. No further needs at this time. Patient can be reached at [phone]. [facility] 36 S: The patient is calling the [facility] about Botox injections B: She received [...] Protocols used: Information Only Call - No [id number] [facility] Progress Noteon 08-22-2024 Progress Note Depo Provera given i n Right Dorsogluteal . Patient tolerated injection well and had no concerns. Patient Supplied [facility]: [address]-3 [id number] EXP: 07/06/2025 [facility] Lumbar Spine 2 or 3 Viewson 08-19-2024 Lumbar Spine 2 or 3 Views [facility] [address] [place], [place] [address] Lumbar Spine 2 or 3 Views MR#: [id number] Acct: [id number] Name: CARLOS GIRON Rep #: [id number] : 1990 F 34 From: [place] PCP: Dr. Nataliya Gomez MD Status: REG CLI Study: Lumbar Spine 2 or 3 Views Date of Exam: Exam# [id number] Ordering Dr: Nataliya Gomez MD PROCEDURE: LUMBAR [...] If persistent concern, consider MRI Reading Location: [facility] CC: Dr. Nataliya Gomez MD End Packer: Signed [facility] 07-29-2024 36 The patient has upco sung Botox appt on 08/15/2024 The Botox will be supplied by us at [facility] and delivered to the MD office on 08/06/2024 BOTOX IS PATIENT SUPPLIED!!! # of Units to be Administered: 200 Medication: botox Dosing Schedule: once every 12 weeks Prior Authorization: Approved (pharmacy benefit) [facility] 07-08-2024 36 [place]: 12/13/23 NOV: Refill pended for approval Depo with [address] 07-03-[address] [place] [address] investigating ubrelvy [place] [address] Let her know that we have to get approval for Ubrelvy first--I sent a message to [facility] [place] [address] Is it possible to ge t Ubrelvy approved? 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 Carlos states that she is requesting to have a script sent to [id number], as soon as possible. Please advise. Best time of day caller can be reached: Any Patient advised that office/PCP has 24-48 business hours to return their call: No [facility] 36 Lm for patient to [facility] the office back, please let her know samples can not be mailed. [facility] 36 See other TE [facility] 36on 07-02-2024 36 Please see previous TE Message released to patient as written. Patient's further questions if applicable: N/A Were all questions from office addressed or relayed to the patient from encounter: Yes Patient is inquiring if the [facility] pharmacy can deliver samples of Ubrelvy to her. Please advise. [facility] 36 Lm for patient to [facility] the office back, please relay providers message. [place] [address] Please contact pt an d have her stop in and get samples of Ubrelvy-4 of the 100mgs [place] [address] S: Patient spoke to [facility] nurse regarding migraine B: Onset of symptoms/concerns [...] > 24 hours and unexplained Protocols used: [id number] [facility] 36 Spoke with Mi today [...] to the office to discuss. Thank you! [place] [address]on 06-10-2024 36 Patient is stating t hat the botox was denied, please advise [place] [address]on 06-07-2024 36 Pt states was not gi ayla any info of why the injections were denied and was told to just resubmit the claim [facility] 36 Lm for patient to ca ll the office back, please get a more detailed message. What was denied? Normal [facility] 36 Name of caller: Fadumo lee Contact phone number: [phone] Relationship to Patient: patient Provider: René Mason Practice: Neurology Chief Complaint/Reason for Call: Carlos called advising that her request for approval from the insurance company was denied. Patient advised she why it was denied. Please call patient back and advise. Best time of day caller can be reached: any Patient advised that office/PCP has 24-48 business hours to return their call: Yes Normal [facility] Progress Noteon 06-06-2024 Progress Note Pt supplied depo giv en in left gluteal [id number] Exp 07/06/2025 Normal [facility] 36on 05-20-2024 36 Spoke with patient a nd answered all questions [facility] 36 Name of caller: Fadumo lee Contact phone number: [phone] Relationship to Patient: patient Provider: ROBERT Mason Practice: [facility] [place] Chief Complaint/Reason for Call: Patient states that [...] hours to return their call: No Normal [facility] CBC W/Diff, Automatedon 04-05 Absolute Lymph 1.93 X10 3/uL Normal 0.83-4.51 [facility] Comment on above: Order Comment: Order Date: 04/11/24Order Info: 0184-1 - CBCD Performed By: #### M 8200.2203 #### [facility] [address] [place], [address] Absolute Neut 7.4 X10 3/uL Normal 2.0-7.7 [facility] Comment on above: Order Comment: Order Date: 04/11/24Order Info: 0184-1 - CBCD Performed By: #### M 8200.2203 #### [facility] [address] [place], [address] Basophils/100 WBC (Bld) 0.3 % Normal 0-1 [facility] Comment on above: Order Comment: Order Date: 04/11/24Order Info: 0184-1 - CBCD Performed By: #### M 8200.2203 #### [facility] [address] [place], [address] Eosinophils/100 WBC (Bld) 0.1 % Normal 0-5 [facility] Comment on above: Order Comment: Order Date: 04/11/24Order Info: 0184-1 - CBCD Performed By: #### Rosangela 8200.2203 #### [facility] [address] [place], [address] Erythrocyte distribution width (RBC) [Ratio] 13.2 % Normal 11.6-14.6 [facility] Comment on above: Order Comment: Order Date: 04/11/24Order Info: 0184-1 - CBCD Performed By: #### M 8200.2203 #### [facility] [address] [place], [address] Hematocrit (Bld) [Volume fraction] 47.8 % High 37-47 [facility] Comment on above: Order Comment: Order Date: 04/11/24Order Info: 0184-1 - CBCD Performed By: #### M 8200.2203 #### [facility] [address] [place], [address] Hemoglobin (Bld) [Mass/Vol] 15.6 g/dL High 12.0-15.0 [facility] Comment on above: Order Comment: Order Date: 04/11/24Order Info: 0184-1 - CBCD Performed By: #### M 8200.2203 #### [facility] [address] [place], [address] IG% 0.400 Normal 0.0-0.9 [facility] Comment on above: Order Comment: Order Date: 04/11/24Order Info: 018- - CBCD Result Comment: IG% - Immature Granulocytes (promyelocytes, myelocytes and metamyelocytes) > 1% indicates that a LEFT SHIFT is Present. Performed By: #### Rosangela 8200.2203 #### [facility] [address] [place], [address] Lymphocytes/100 WBC (Bld) 19.8 % Normal 19-41 [facility] Comment on above: Order Comment: Order Date: 04/11/24Order Info: 183- - CBCD Performed By: #### Rosangela 8200.2203 #### [facility] [address] [place], [address] MCH (RBC) [Entitic mass] 32.2 pg High 27.0-32.0 [facility] Comment on above: Order Comment: Order Date: 04/11/24Order Info: 018- - CBCD Performed By: #### Rosangela 8200.2203 #### [facility] [address] [place], [address] MCHC (RBC) [Mass/Vol] 32.6 g/dL Normal 32-36 [facility] Comment on above: Order Comment: Order Date: 04/11/24Order Info: 018- - CBCD Performed By: #### Rosangela 8200.2203 #### [facility] [address] [place], [address] MCV (RBC) [Entitic vol] 98.6 fL Normal 81-99 [facility] Comment on above: Order Comment: Order Date: 04/11/24Order Info: 018- - CBCD Performed By: #### Rosangela 8200.2203 #### [facility] [address] [place], [address] Monocytes/100 WBC (Bld) 3.6 % Normal 0-10 [facility] Comment on above: Order Comment: Order Date: 04/11/24Order Info: 0184-1 - CBCD Performed By: #### M 8200.2203 #### [facility] [address] [place], [address] Neutrophils/100 WBC (Bld) 75.8 % High 47-70 [facility] Comment on above: Order Comment: Order Date: 04/11/24Order Info: 0184-1 - CBCD Performed By: #### M 8200.2203 #### [facility] [address] [place], [address] Nucleated RBC (Bld) [#/Vol] 0 10*3/uL Normal 0-5 [facility] Comment on above: Order Comment: Order Date: 04/11/24Order Info: 0184-1 - CBCD Performed By: #### M 8200.2203 #### [facility] [address] [place], [address] Platelet mean volume (Bld) [Entitic vol] 9.9 fL Normal 6.2-12.0 [facility] Comment on above: Order Comment: Order Date: 04/11/24Order Info: 0184-1 - CBCD Performed By: #### M 8200.2203 #### [facility] [address] [place], [address] Platelets (Bld) [#/Vol] 271 10*3/uL Normal 150-450 [facility] Comment on above: Order Comment: Order Date: 04/11/24Order Info: 0184-1 - CBCD Performed By: #### M 8200.2203 #### [facility] [address] [place], [address] RBC (Bld) [#/Vol] 4.85 10*6/uL Normal 4.2-5.4 [facility] Comment on above: Order Comment: Order Date: 04/11/24Order Info: 018- - CBCD Performed By: #### M 8200.2203 #### [facility] [address] [place], [place], [address] RDW SD 47.6 fl High 35.1-43.9 [facility] Comment on above: Order Comment: Order Date: 04/11/24Order Info: 018- - CBCD Performed By: #### Rosangela 8200.2203 #### [facility] [address] [place], [place], [address] WBC (Bld) [#/Vol] 9.7 10*3/uL Normal 4.4-11.0 [facility] Comment on above: Order Comment: Order Date: 04/11/24Order Info: 01809-03 - CBCD Performed By: #### Rosangela 8200.2203 #### [facility] [address] [place], [address] Comprehensive Metabolic Prof sdon 04-15-2024 Albumin [Mass/Vol] 4.0 g/dL Normal 3.2-5.0 [facility] Comment on above: Order Comment: Order Date: 04/11/24Order Info: 0786-1 - CMPOrder Info: 3016-3 - TSHOrder Date: 04/15/24Order Info: 0553-1 - FSHLH Performed By: #### Rosangela 8200.2203 #### [facility] [address] [place], [place], [address] Albumin/Globulin [Mass ratio] 1.0 {ratio} Normal 0.9-2.4 [facility] Comment on above: Order Comment: Order Date: 04/11/24Order Info: 0786-1 - CMPOrder Info: 3016-3 - TSHOrder Date: 04/15/24Order Info: 0553-1 - FSHLH Performed By: #### M 8200.2203 #### [facility] [address] [place], [place], [address] ALK P 59 U/L Normal 45-117 [facility] Comment on above: Order Comment: Order Date: 04/11/24Order Info: 0786-1 - CMPOrder Info: 3015-3 - TSHOrder Date: 04/15/24Order Info: 0553-1 - FSHLH Performed By: #### M 8200.2203 #### [facility] [address] [place], [address] ALT [Catalytic activity/Vol] 24 U/L Normal 13-56 [facility] Comment on above: Order Comment: Order Date: 04/11/24Order Info: 86-1 - CMPOrder Info: 3015-3 - TSHOrder Date: 04/15/24Order Info: 0553-1 - FSHLH Performed By: #### M 8200.2203 #### [facility] [address] [place], [address] AST [Catalytic activity/Vol] 11 U/L Low 15-37 [facility] Comment on above: Order Comment: Order Date: 04/11/24Order Info: 86-1 - CMPOrder Info: 3015-3 - TSHOrder Date: 04/15/24Order Info: 0553-1 - FSHLH Performed By: #### M 8200.2203 #### [facility] [address] [place], [address] Bilirubin [Mass/Vol] 0.40 mg/dL Normal 0.20-1.00 [facility] Comment on above: Order Comment: Order Date: 04/11/24Order Info: 86-1 - CMPOrder Info: 3015-3 - TSHOrder Date: 04/15/24Order Info: 0553-1 - FSHLH Result Comment: For patients on eltrombopag therapy, use of Dimension Dalton TBIL is not recommended. Performed By: #### M 8200.2203 #### [facility] [address] [place], [address] BUN/CRE 8.8 RATIO Low 10-20 [facility] Comment on above: Order Comment: Order Date: 04/11/24Order Info: 86-1 - CMPOrder Info: 3 - TSHOrder Date: 04/15/24Order Info: 0553-1 - FSHLH Performed By: #### M 8200.2203 #### [facility] [address] [place], [address] (479) CA,Total 9.4 mg/dL Normal 8.5-10.1 [facility] Comment on above: Order Comment: Order Date: 04/11/24Order Info: 86-1 - CMPOrder Info: 3015-08 - TSHOrder Date: 04/15/24Order Info: 552-1 - FSHLH Performed By: #### M 8200.2203 #### [facility] [address] [place], [address] Chloride [Moles/Vol] 112 mmol/L High 98-107 [facility] Comment on above: Order Comment: Order Date: 04/11/24Order Info: 785-1 - CMPOrder Info: 3015-08 - TSHOrder Date: 04/15/24Order Info: 53-1 - FSHLH Performed By: #### M 8200.2203 #### [facility] [address] [place], [address] CO2 [Moles/Vol] 18.0 mmol/L Low 21.0-32.0 [facility] Comment on above: Order Comment: Order Date: 04/11/24Order Info: 785-1 - CMPOrder Info: 3 - TSHOrder Date: 04/15/24Order Info: 53-1 - FSHLH Performed By: #### M 8200.2203 #### [facility] [address] [place], [address] Creatinine [Mass/Vol] 0.79 mg/dL Normal 0.55-1.02 [facility] Comment on above: Order Comment: Order Date: 04/11/24Order Info: 785-1 - CMPOrder Info: 3015-08 - TSHOrder Date: 04/15/24Order Info: 552- - FSHLH Result Comment: The validity of the calculated GFR GFRAA in patients over 70 years has not been determined. Clinical correlation is essential. Performed By: #### M 8200.2203 #### [facility] [address] [place], [place], [address] EST GFR - AA 107 mL/min Normal >60 [facility] Comment on above: Order Comment: Order Date: 04/11/24Order Info: 785- - CMPOrder Info: 3015-08 - TSHOrder Date: 04/15/24Order Info: 552-06 - FSHLH Result Comment: Afri can Sudanese GFR Calc Performed By: #### M 8200.2203 #### [facility] [address] [place], [address] GAP 11 Normal 5-15 [facility] Comment on above: Order Comment: Order Date: 04/11/24Order Info: 785- - CMPOrder Info: 3015-08 - TSHOrder Date: 04/15/24Order Info: 552-06 - FSHLH Performed By: #### M 8200.2203 #### [facility] [address] [place], [address] GFR/1.73 sq M.predicted among non-blacks MDRD (S/P/Bld) [Vol rate/Area] 89 mL/min/{1.73_m2} Normal >60 [facility] Comment on above: Order Comment: Order Date: 04/11/24Order Info: 785-1 - CMPOrder Info: 3015-08 - TSHOrder Date: 04/15/24Order Info: 552- - FSHLH Result Comment: Non- GFR Calc Performed By: #### M 8200.2203 #### [facility] [address] [place], [place], [address] Globulin (S) [Mass/Vol] 3.9 g/dL Normal 2.2-4.2 [facility] Comment on above: Order Comment: Order Date: 04/11/24Order Info: 785- - CMPOrder Info: 3015-08 - TSHOrder Date: 04/15/24Order Info: 552- - FSHLH Performed By: #### M 8200.2203 #### [facility] [address] [place], [address] Glucose [Mass/Vol] 118 mg/dL High 74-106 [facility] Comment on above: Order Comment: Order Date: 04/11/24Order Info: 785-06 - CMPOrder Info: 3015-08 - TSHOrder Date: 04/15/24Order Info: 552- - FSHLH Result Comment: Fast ing Glucose result from 100 to 125 mg/dL suggests IMPAIRED HOMEOSTASIS per A.D.A. criteria. Performed By: #### Rosangela 8200.2203 #### [facility] [address] [place], [place], [address] Potassium [Moles/Vol] 3.6 mmol/L Normal 3.5-5.1 [facility] Comment on above: Order Comment: Order Date: 04/11/24Order Info: 785-06 - CMPOrder Info: 3015-08 - TSHOrder Date: 04/15/24Order Info: 552- - FSHLH Performed By: #### Rosangela 8200.2203 #### [facility] [address] [place], [place], [address] Sodium [Moles/Vol] 141 mmol/L Normal 136-145 [facility] Comment on above: Order Comment: Order Date: 04/11/24Order Info: 785- - CMPOrder Info: 3015-08 - TSHOrder Date: 04/15/24Order Info: 552- - FSHLH Performed By: #### M 8200.2203 #### [facility] [address] [place], [address] T PROT 7.9 g/dL Normal 6.4-8.2 [facility] Comment on above: Order Comment: Order Date: 04/11/24Order Info: 86-1 - CMPOrder Info: 3015-3 - TSHOrder Date: 04/15/24Order Info: 0553-1 - FSHLH Performed By: #### M 8200.2203 #### [facility] [address] [place], [place], [address] Urea nitrogen [Mass/Vol] 7 mg/dL Normal 7-18 [facility] Comment on above: Order Comment: Order Date: 04/11/24Order Info: 785-1 - CMPOrder Info: 3015-3 - TSHOrder Date: 04/15/24Order Info: 0553-1 - FSHLH Performed By: #### M 8200.2203 #### [facility] [address] [place], [place], [address] FSH and LHon 04-15-2024 FSH 4.5 mIU/mL Normal [facility] Comment on above: Order Comment: Order Date: 04/11/24Order Info: 785-1 - CMPOrder Info: 3015-3 - TSHOrder Date: 04/15/24Order Info: 0553-1 - FSHLH Result Comment: NORMAL REFERENCE RANGES FEMALE FOLLICULAR 2.3 - 12.6 mIU/mL MID-CYCLE PEAK 5.2 - 17.5 mIU/mL LUTEAL 1.7 - 12.9 mIU/mL POST-MENOPAUSAL ON MHT 5.9 - 72.8 mIU/mL NOT ON MHT 12.7 - 132.2 mlU/mL MALE 0.7 - 10.8 mIU/mL Performed By: #### M 8200.2203 #### [facility] [address] [place], [place], [address] LH 2.4 mIU/mL Normal [facility] Comment on above: Order Comment: Order Date: 04/11/24Order Info: 785-1 - CMPOrder Info: 3015-3 - TSHOrder Date: 04/15/24Order Info: 0553-1 - FSHLH Result Comment: NORMAL REFERENCE RANGES FEMALE FOLLICULAR 1.9 - 26.2 mIU/mL MID-CYCLE PEAK 22.8 - 76.1 mIU/mL LUTEAL 0.6 - 16.6 mIU/mL POST-MENOPAUSAL ON MHT 1.1 - 52.4 mIU/mL NOT ON MHT 8.6 - 61.8 mIU/mL MALE 1.2 - 10.6 mIU/mL Performed By: #### M 8200.2203 #### [facility] [address] [place], [address] Thyroid Stim Hormone (TSH)on 04-15-2024 TSH 0.701 uIU/mL Normal 0.358-3.740 [facility] Comment on above: Order Comment: Order Date: 04/11/24Order Info: 0786-1 - CMPOrder Info: 3016-3 - TSHOrder Date: 04/15/24Order Info: 0553-1 - FSHLH Performed By: #### Rosangela 8200.2203 #### [facility] [address] [place], [place], [address] Vitamin D,25 Hydroxyon 04-15 Vitamin D 25-OH 49.6 ng/mL Normal [facility] Comment on above: Order Comment: Order Date: 04/11/24Order Info: 43015-8 - VITD25 Result Comment: Eleni min D 25(OH) Status Range Deficiency <20 ng/mL (50nmol/L) Insufficiency 20 - 30 ng/mL (50 - 75 nmol/L) Sufficiency 30 - 100 ng/mL (75 - 250 nmol/L) Toxicity >100 ng/mL (>250 nmol/L) Performed By: #### M 8200.2203 #### [facility] [address] [place], [address] 36on 04-05-2024 36 [place]: 12/13/23 NOV: Refill pended for approval Depo-Provera with 0 refills. [facility] 36on 01-30-2024 36 Patient has been rescheduled [facility] 36 Name of Caller: Fadumo lee Contact Reason for Appointment: Reschedule 01/24 botox appointment for two weeks out Office Name: [facility] [place] Normal [facility] SHS Bacteria identified Cx Nom ( U)on 12-15-2023 [facility] Urine cultureon 12-15-2023 Bacteria identified Cx Nom (U) SEE NOTE [facility] Comment on above: CULTURE, URINE, ROUTINE Micro Number: [id number] Test Status: Final Specimen Source: Urine Specimen Quality: Adequate Result: Less than 10,000 CFU/mL of single Gram positive organism isolated. No further testing will be performed. If clinically indicated, recollection using a method to minimize contamination, with prompt transfer to Urine Culture Transport Tube, is recommended. Urinalysis macro (dipstick) panel (U)on 12-13-2023 Bilirubin, UA Negative [facility] Blood, UA Negative [facility] Glucose, UA Negative [facility] Interpretation and review of laboratory results Abnormal [facility] Ketones, POC (mg/dL) 15 mg/dL [facility] Leukocytes, UA Negative [facility] Nitrite, UA Negative [facility] pH, UA 6.0 [facility] Protein, UA Negative [facility] Spec Grav, UA 1.015 [facility] Urobilinogen, UA 0.2 [facility] alth [facility] LABORATORYOrdered By: Isha Mancera on 04-11-2023 S. [...] Group A Strep PCR Negative Normal Negative [facility] ([place]) Comment on above: Performed By: #### S JOSE #### [place] [address] [place], [place] [address] Group A Strep PCR Int Normal [facility] ([place]) Comment on above: Result Comment: Nega tive [...] Interp Performed By: #### S JOSE #### [address] [address] XR CHEST 1 VIEWon 04-11-2023 XR CHEST [...] Date: 04/11/2023 2:18:16 PM Ordering Provider: DAWSON BECKETT Normal [facility] ([place]) .Urinalysis Microscopic (AO) on 02-18-2023 UA Bacteria 1+ /hpf Abnormal [facility] ([place]) Comment on above: Performed By: #### U PANFILO Philip UAMICAO #### [facility] [address] [place], [place] [address] UA RBC 0-5 Abnormal None Seen [facility] ([place]) Comment on above: Performed By: #### U A, PREGU, UAMICAO #### [facility] [address] [place], [place] [address] UA Squam Epithelial 0-5 Abnormal None Seen [facility] ([place]) Comment on above: Performed By: #### U A, PREGU, UAMICAO #### [place] [address] [place], [place] [address] UA WBC LOADED Abnormal None Seen [facility] ([place]) Comment on above: Performed By: #### U A, PREGU, UAMICAO #### [place] [address] [place], [place] [address] LABORATORYOrdered By: Coby Rivera on 02-18-2023 Appearance [...] HCG ( test) Ql (U) Negative Normal [facility] ([place]) Comment on above: Performed By: #### U A, PREGU, UAMICAO #### [place] [address] test (u) int Not detected Invalid Interpretation Code [facility] ([place]) Comment on above: Performed By: #### U A, PREGU, UAMICAO #### [place] [address] UAon 02-18-2023 Color (U) Yellow Normal [facility] ([place]) Comment on above: Performed By: #### U A, PREGU, UAMICAO #### [address] [address] Glucose (U) [Mass/Vol] Negative Normal Negative [facility] ([place]) Comment on above: Performed By: #### U A, PREGU, UAMICAO #### [address] [address] Ketones Ql (U) Negative Normal Negative [facility] ([place]) Comment on above: Performed By: #### U A, PREGU, UAMICAO #### [address] [address] UA Appear Clear Normal Clear [facility] ([place]) Comment on above: Performed By: #### U A, PREGU, UAMICAO #### [address] [address] UA Blood Trace Abnormal Negative [facility] ([place]) Comment on above: Performed By: #### U A, PREGU, UAMICAO #### [place] [address] UA Leuk Est Trace Abnormal Negative [facility] ([place]) Comment on above: Performed By: #### U A, PREGU, UAMICAO #### [place] [address] UA Nitrite Negative Normal Negative [facility] ([place]) Comment on above: Performed By: #### U A, PREGU, UAMICAO #### [place] [address] UA pH 8.0 Normal 5.0 - 8.0 [facility] ([place]) Comment on above: Performed By: #### U A, PREGU, UAMICAO #### [place] [address] UA Protein Negative Normal Negative [facility] ([place]) Comment on above: Performed By: #### U A, PREGU, UAMICAO #### [place] [address] UA Spec Grav 1.020 Normal 1.015-1.025 [facility] ([place]) Comment on above: Performed By: #### U A, PREGU, UAMICAO #### [place] [address] UA Specimen Type Void Normal [facility] ([place]) Comment on above: Performed By: #### U A, PREGU, UAMICAO #### [place] [address] UA Urobilinogen 0.2 E.U./dL Normal 0.2-1.0 [facility] ([place]) Comment on above: Performed By: #### U A, PREGU, UAMICAO #### [place] [address] Urobilinogen (U) [Mass/Vol] Negative Normal Negative [facility] ([place]) Comment on above: Performed By: #### U A, PREGU, UAMICAO #### [place] [address] [place], [place] [address] LABORATORYOrdered By: Isha Mancera on 04-14-2022 Appearance [...] Justina Summers on 12-30-2021 Appearance (U) Clear (7/28/22 12:47 AM) Invalid Interpretation Code Clear AO [...] Foot Complete 3+ Views Bilateral Patient Name: CARLOS GIRON Diagnostic Radiology ACCESSION EXAM DATE/TIME PROCEDURE ORDERING PROVIDER [id number] 09/16/2021 13:27 EDT CR Foot Complete 3+ SOPHIE GERMAN Views Bilateral CPT code 76557 Reason For Exam (CR Foot Complete 3+ [...] Transcribed Date and Time: 09/17/2021 1:22 Normal [facility] LABORATORYOrdered By: Justina Wilde on 07-23-2021 [...] Status: F Normal urogenital lois present. Normal [employer] Comment on above: Performed By: #### C /UR #### [facility] [address] [place] [id number] Group A Strep Screen by PCRo n 06-13-2021 Group A Strep Screen by PCR Group A Strep Screen by PCR --> Status: F NOT Detected Expected Result: Not Detected Methodology - Real Time PCR (Cepheid) Expected Result: Not Detected Methodology - Real Time PCR (Cepheid) Normal [facility] Comment on above: Performed By: #### C UA2, HCGUR, STRP3 #### [facility] [address] [place] [address] #### [facility]ASPC #### [address] [address] CR Chest PA/LATon 06-12-2021 CR Chest PA/LAT Patient Name: CARLOS GIRON Diagnostic Radiology ACCESSION EXAM DATE/TIME PROCEDURE ORDERING PROVIDER [id number] 06/12/2021 11:51 EST CR Chest PA and LAT MD JOVANY, MARTÍN Sanchez CPT code 07218 Reason For Exam (CR Chest PA and [...] Report Dictated on Final Dictating Physician: MD EVERARDO, BUDDY Signed Date and Time: 06/12/2021 12:00 pm Signed by: MD MCGEE AHMAD Transcribed Date and Time: 06/12/2021 12:01 Normal [facility] Complete Urinalysison 2021 Bacteria Few (1-5) Abnormal Negative [facility] Comment on above: Result Comment: . Performed By: #### C UA2, HCGUR, STRP3 #### [facility] [address] [place] [address] #### [facility] #### [address], [place] RBC, Urine 0 - 2 Normal 0-2 [facility] Comment on above: Result Comment: . Performed By: #### C UA2, HCGUR, STRP3 #### [facility] [address] [place] [address] #### [facility] #### [place] [address] [address] [place], [place] Squamous Epithelial 6 - 10 Abnormal 3-5 [facility] Comment on above: Result Comment: . Performed By: #### C UA2, HCGUR, STRP3 #### [address] [address] #### [facility] #### [place] [address] [address] [place], [place] VOLUME, URINE 12 ml Normal [facility] Comment on above: Result Comment: . Performed By: #### C UA2, HCGUR, STRP3 #### [address] [address] #### [facility] #### [place] [address] [address] [place], [place] WBC, Urine 0 - 2 Normal 0-5 [facility] Comment on above: Result Comment: . Performed By: #### C UA2, HCGUR, STRP3 #### [address] [address] #### [facility] #### [place] [address] [address] [place], [place] Appearance (U) Clear Normal Clear [facility] Comment on above: Result Comment: . Performed By: #### C UA2, HCGUR, STRP3 #### [facility] [address] [place] [address] #### [facility] #### [place] [address] [address] [place], [place] Bilirubin,Urine Negative Normal Negative [facility] Comment on above: Result Comment: . Performed By: #### C UA2, HCGUR, STRP3 #### [facility] [address] [place] [id number] #### [facility] #### [place] [address] [address] [place], [place] Color (U) YELLOW Normal Lt. Yellow [facility] Comment on above: Result Comment: . Performed By: #### C UA2, HCGUR, STRP3 #### [address] [place] [address] #### [facility] #### [place] [address] [address] [place], [place] Glucose Ql (U) Normal Normal Normal (<70) [facility] Comment on above: Result Comment: . Performed By: #### C UA2, HCGUR, STRP3 #### [address] [place] [address] #### [facility] #### [place] [address] [place] Ketone,Urine 20 mg/dL Abnormal Negative [facility] Comment on above: Result Comment: . Performed By: #### C UA2, HCGUR, STRP3 #### [address] [place] [address] #### [facility] #### [address] [place], [place] Leukocytes,Urine Negative Normal Negative [facility] Comment on above: Result Comment: . Performed By: #### C UA2, HCGUR, STRP3 #### [address] [place] [address] #### [facility] #### [place] [address] [address] [place], [place] Nitrites,Urine Negative Normal Negative [facility] Comment on above: Result Comment: . Performed By: #### C UA2, HCGUR, STRP3 #### [address] [place] [address] #### [facility] #### [place] [address] [address] [place], [place] Occult Blood,Urine Negative Normal Negative [facility] Comment on above: Result Comment: . Performed By: #### C UA2, HCGUR, STRP3 #### [facility] [address] [place] [address] #### [facility] #### [place] [address] [place] [address] pH,Urine 6.0 Normal 5.0-8.0 [facility] Comment on above: Result Comment: . Performed By: #### C UA2, HCGUR, STRP3 #### [address] [place] [address] #### [facility] #### [place] [address] [address] [place], [place] Protein (U) [Mass/Vol] 20 mg/dL Abnormal Negative [facility] Comment on above: Result Comment: . Performed By: #### C UA2, HCGUR, STRP3 #### [address] [place] [address] #### [facility] #### [place] [address] [address] [place], [place] Specific Standard,Urine 1.019 Normal 1.005 - 1.030 [facility] Comment on above: Result Comment: . Performed By: #### C UA2, HCGUR, STRP3 #### [address] [place] [address] #### [facility] #### [place] [address] [place] [address] Urobilinogen,Urine Normal Normal Normal (0-1) [facility] Comment on above: Result Comment: . Performed By: #### C UA2, HCGUR, STRP3 #### [address] [place] [address] #### [facility] #### [place] [address] [place] [address] HCG,Urine Qualon 06-12-2021 Beta HCG ( test) Ql (U) Negative Normal Negative [facility] Comment on above: Result Comment: Plea se note: Very dilute urine specimens, as indicated by a low specific gravity, may not contain new accounts representative levels of hCG. If is still suspected, a first morning urine specimen should be collected 48 hours later and tested. is the most common reason for HCG in urine, although choriocarcinoma, hydatidiform mole, and certain nontropho- blastic malignancies also result in detectable urinary HCG levels. Sensitivity = 20mIU/mL. Performed By: #### C UA2, HCGUR, STRP3 #### [facility] [address] [place] [address] #### [facility]ASPC #### [facility] [address] [place] [address] SARS-CoV-2, Flu A/B and RSVo n 06-12-2021 SARS-CoV-2 (COVID-19) RNA MICHELLE+probe Ql (Unsp spec) SARS-CoV-2 --> Status: F DETECTED Flu A PCR --> Status: F Not Detected. Flu B PCR --> Status: F Not Detected. RSV PCR --> Status: F Not Detected. Expected Result: Not Detected _ Method: Real-time, RT-PCR This assay was developed by [employer] and distributed under an Emergency Use Authorization (EUA) granted by the FDA for the qualitative detection of nucleic acids from SARS-CoV-2, Influenza A, Influenza B, and Respiratory Syncytial Virus. Provider and patient fact sheets can be found at https://www.fda.gov/medi a/350632/download and https://www.fda.gov/medi a/740904/download. Expected Result: Not Detected _ Method: Real-time, RT-PCR This assay was developed by [employer] and distributed under an Emergency Use Authorization (EUA) granted by the FDA for the qualitative detection of nucleic acids from SARS-CoV-2, Influenza A, Influenza B, and Respiratory Syncytial Virus. Provider and patient fact sheets can be found at https://www.fda.gov/medi a/719495/download and https://www.fda.gov/medi a/739353/download. Normal [facility] Comment on above: Performed By: #### C VFLR #### [facility] [address] [place] [address] , [address] Strep A Rapidon 06-12-2021 S. pyogenes Ag IA Ql (Unsp spec) see below Normal Negative [facility] Comment on above: Result Comment: NEGA TIVE (presumptive) for Group A Streptococcus antigen. Method: Immunochromatographic assay. Confirmatory testing to follow. Confirmatory testing performed at an additional cost. Performed By: #### C UA2, HCGUR, STRP3 #### [facility] [address] [place] [address] #### GASPC #### [facility] [address] [place] [address] ED NOTEon 12-23-2020 ED NOTE HNO ID: [id number] Author: Lia Yun, MARIE Service: ? Author Type: Registered Nurse Type: ED Notes Filed: 12/23/2020 8:56 AM Note Text: Patient report to MMT. Patient stable and assisted onto the cot. Patient cooperative. [facility] ED NOTE HNO ID: [id number] Author: Agustina Dumont RN Service: ? Author Type: Registered Nurse Type: ED Notes Filed: 12/23/2020 7:07 AM Note Text: ED security at doorway, patient relaxing at this time. PINK SLIP sent to central intake. [facility] ED NOTE HNO ID: [id number] Author: Agustina Dumont RN Service: ? Author Type: Registered Nurse Type: ED Notes Filed: 12/23/2020 6:37 AM Note Text: Maricel from was called to find out update, do not have an update at this time, said she was going to look into this [facility] ED NOTE HNO ID: [id number] Author: Agustina Dumont RN Service: ? Author Type: Registered Nurse Type: ED Notes Filed: 12/23/2020 6:29 AM Note Text: Patient up out of bed, yelling that she wants to go. Nurse trying to explain that she has been pink slipped and she cannot go. Security at doorway. Patient still yelling wants to talk to her ecommerce analyst. [facility] ED NOTE HNO ID: [id number] Author: Agustina Dumont RN Service: ? Author Type: Registered Nurse Type: ED Notes Filed: 12/23/2020 5:14 AM Note Text: Patient is getting agitated said that she was ready to go, has been here for 2 days, MD Jin talked to patient about the plan... denies want for food or drink [facility] ED NOTE HNO ID: [id number] Author: Agustina Dumont RN Service: ? Author Type: Registered Nurse Type: ED Notes Filed: 12/23/2020 4:48 AM Note Text: Central intake called for update, no new update at this time. Patient was referred out to LUCY and paul tamayo [facility] ED NOTE HNO ID: [id number] Author: Agustina Dumont RN Service: ? Author Type: Registered Nurse Type: ED Notes Filed: 12/23/2020 4:23 AM Note Text: Patient states she is not going to get transfer or she is going to get her ecommerce analyst patient is angry, says she has done everything she has to do here, ready to go to [place] and get her stuff [facility] ED NOTE HNO ID: [id number] Author: Agustina Dumont RN Service: ? Author Type: Registered Nurse Type: ED Notes Filed: 12/23/2020 4:24 AM Note Text: Spoke with central intake, at this time did not have an update [facility] ED PROV NOTEon 12-23-2020 ED PROV NOTE HNO ID: [id number] Author: Liliam Jin MD Service: ? Author [...] on her own. Patient was accepted at [facility]. Patient will be transferred in stable condition Liliam Jin MD 12/23/20 0649 Liliam Jin MD 12/23/20 0658 [facility] Acetaminophenon 12-22-2020 Acetaminophen [Mass/Vol] ug/mL Low 10-30 [facility] Comment on above: Result Comment: Toxi c > 150 ug/mL 4 hours post ingestion The Melia Palmer nomogram can be used to estimate the probability of hepatotoxicity via the relationship of plasma acetaminophen concentration to the post ingestion interval. (Robby. Pediatrics. 1975. 55:871 to 876 and Melia et al. [employer] Med. 1981. 141:380 to 385). Reference ranges and high/low indicator flags are provided as general guidelines only. The treating physician must determine appropriate target levels/dosing based on the specific clinical situation. Performed By: #### C BCDIF, CMP, ACETM, ALCO, SALI ####[facility] [address] [place] [address] CBC and Differentialon 12-22 Abs Baso <0.03 Normal <0.11 [facility] Comment on above: Performed By: #### C BCDIF, CMP, ACETM, ALCO, SALI ####[place] [address] Abs Eosin <0.03 Normal <0.46 [facility] Comment on above: Performed By: #### C BCDIF, CMP, ACETM, ALCO, SALI ####[place] [address] Abs Montmorency 0.66 k/uL Normal <0.87 [facility] Comment on above: Performed By: #### C BCDIF, CMP, ACETM, ALCO, SALI ####[place] [address] Abs Neut 8.70 k/uL High 1.45-7.50 [facility] Comment on above: Performed By: #### C BCDIF, CMP, ACETM, ALCO, SALI ####[place] [address] Absolute nRBC <0.01 Normal <0.01 [facility] Comment on above: Performed By: #### C BCDIF, CMP, ACETM, ALCO, SALI ####[place] [address] Basophils/100 WBC (Bld) 0.2 % Normal [facility] Comment on above: Performed By: #### C BCDIF, CMP, ACETM, ALCO, SALI ####[place] [address] DTYPE Auto Diff Normal [facility] Comment on above: Performed By: #### C BCDIF, CMP, ACETM, ALCO, SALI ####[place] [address] Eosinophils/100 WBC (Bld) 0.1 % Normal [facility] Comment on above: Performed By: #### C BCDIF, CMP, ACETM, ALCO, SALI ####[place] [address] Erythrocyte distribution width (RBC) [Ratio] 13.2 % Normal 11.5-15.0 [facility] Comment on above: Performed By: #### C BCDIF, CMP, ACETM, ALCO, SALI ####[place] [address] Hematocrit (Bld) [Volume fraction] 40.6 % Normal 36.0-46.0 [facility] Comment on above: Performed By: #### C BCDIF, CMP, ACETM, ALCO, SALI ####[place] [address] Hemoglobin (Bld) [Mass/Vol] 13.7 g/dL Normal 11.5-15.5 [facility] Comment on above: Performed By: #### C BCDIF, CMP, ACETM, ALCO, SALI ####[place] [address] Lymphocytes (Bld) [#/Vol] 1.25 10*3/uL Normal 1.00-4.00 [facility] Comment on above: Performed By: #### C BCDIF, CMP, ACETM, ALCO, SALI ####[place] [address] Lymphocytes/100 WBC (Bld) 11.7 % Normal [facility] Comment on above: Performed By: #### C BCDIF, CMP, ACETM, ALCO, SALI ####[place] [address] MCH 33.3 pG Normal 26.0-34.0 [facility] Comment on above: Performed By: #### C BCDIF, CMP, ACETM, ALCO, SALI ####[facility] [address]90 [address] MCHC (RBC) [Mass/Vol] 33.7 g/dL Normal 30.5-36.0 [facility] Comment on above: Performed By: #### C BCDIF, CMP, ACETM, ALCO, SALI ####[facility] [address] MCV (RBC) [Entitic vol] 98.8 fL Normal 80.0-100.0 [facility] Comment on above: Performed By: #### C BCDIF, CMP, ACETM, ALCO, SALI ####[facility] [address] [place], [place] [id number] Monocytes/100 WBC (Bld) 6.2 % Normal [facility] Comment on above: Performed By: #### C BCDIF, CMP, ACETM, ALCO, SALI ####[facility] [address] [place], [place] [id number] Neutrophils/100 WBC (Bld) 81.8 % Normal [facility] Comment on above: Performed By: #### C BCDIF, CMP, ACETM, ALCO, SALI ####[facility] [address] [place], [place] [phone] NRBCs 0.0 /100 WBC Normal 0 [facility] Comment on above: Performed By: #### C BCDIF, CMP, ACETM, ALCO, SALI ####[facility] [address] [place] [address] Platelet mean volume (Bld) [Entitic vol] 9.5 fL Normal 9.0-12.7 [facility] Comment on above: Performed By: #### C BCDIF, CMP, ACETM, ALCO, SALI ####[facility] [address]35 [address] Platelets (Bld) [#/Vol] 246 10*3/uL Normal 150-400 [facility] Comment on above: Performed By: #### C BCDIF, CMP, ACETM, ALCO, SALI ####[facility] [address] RBC (Bld) [#/Vol] 4.11 10*6/uL Normal 3.90-5.20 [facility] Comment on above: Performed By: #### C BCDIF, CMP, ACETM, ALCO, SALI ####[facility] [address] [place] [address] WBC (Bld) [#/Vol] 10.64 10*3/uL Normal 3.70-11.00 [facility] Comment on above: Performed By: #### C BCDIF, CMP, ACETM, ALCO, SALI ####[facility] [address] [place] [address] Comp Metabolic Panelon 12-22 Albumin [Mass/Vol] 4.5 g/dL Normal 3.9-4.9 [facility] Comment on above: Performed By: #### C BCDIF, CMP, ACETM, ALCO, SALI ####[facility] [address] [place] [address] ALP [Catalytic activity/Vol] 63 U/L Normal 34-123 [facility] Comment on above: Performed By: #### C BCDIF, CMP, ACETM, ALCO, SALI ####[facility] [address] [place] [address] ALT [Catalytic activity/Vol] 26 U/L Normal 7-38 [facility] Comment on above: Performed By: #### C BCDIF, CMP, ACETM, ALCO, SALI ####[facility] [address] [place] [address] Anion gap [Moles/Vol] 14 mmol/L Normal 9-18 [facility] Comment on above: Performed By: #### C BCDIF, CMP, ACETM, ALCO, SALI ####[facility] [address] [place] [address] AST [Catalytic activity/Vol] 23 U/L Normal 13-35 [facility] Comment on above: Performed By: #### C BCDIF, CMP, ACETM, ALCO, SALI ####[facility] [address] [place] [address] Bilirubin [Mass/Vol] 0.5 mg/dL Normal 0.2-1.3 [facility] Comment on above: Performed By: #### C BCDIF, CMP, ACETM, ALCO, SALI ####[facility] [address] [place] [address] Calcium [Mass/Vol] 9.7 mg/dL Normal 8.5-10.2 [facility] Comment on above: Performed By: #### C BCDIF, CMP, ACETM, ALCO, SALI ####[facility] [address] [place] [address] Chloride [Moles/Vol] 105 mmol/L Normal 97-105 [facility] Comment on above: Performed By: #### C BCDIF, CMP, ACETM, ALCO, SALI ####[facility] [address] [place] [address] CO2 [Moles/Vol] 21 mmol/L Low 22-30 [facility] Comment on above: Performed By: #### C BCDIF, CMP, ACETM, ALCO, SALI ####[facility] [address] [place] [address] Creatinine [Mass/Vol] 0.69 mg/dL Normal 0.58-0.96 [facility] Comment on above: Performed By: #### C BCDIF, CMP, ACETM, ALCO, SALI ####[facility] [address] [place] [address] eGFR- Amer. >60 Normal [facility] Comment on above: Performed By: #### C BCDIF, CMP, ACETM, ALCO, SALI ####[facility] [address] [place] [address] eGFR-All Other Races >60 Normal [facility] Comment on above: Result Comment: eGFR [...] #### C BCDIF, CMP, ACETM, ALCO, SALI ####[facility] [address] [place] [address] Glucose [Mass/Vol] 110 mg/dL High 74-99 [facility] Comment on above: Result Comment: The [place] [employer] (ADA) provides guidance for cutoff [...] Standards of Medical Care in Diabetes 2016, [place] [employer]. Diabetes Care. 2016.39(Suppl 1). Performed By: #### C BCDIF, CMP, ACETM, ALCO, SALI ####[facility] [address] [place] [address] Potassium [Moles/Vol] 3.5 mmol/L Low 3.7-5.1 [facility] Comment on above: Performed By: #### C BCDIF, CMP, ACETM, ALCO, SALI ####[place] [address] Protein [Mass/Vol] 7.3 g/dL Normal 6.3-8.0 [facility] Comment on above: Performed By: #### C BCDIF, CMP, ACETM, ALCO, SALI ####[facility] [address] [place] [address] Sodium [Moles/Vol] 140 mmol/L Normal 136-144 [facility] Comment on above: Performed By: #### C BCDIF, CMP, ACETM, ALCO, SALI ####[facility] [address] [place] [address] Urea nitrogen [Mass/Vol] 6 mg/dL Low 7-21 [facility] Comment on above: Performed By: #### C BCDIF, CMP, ACETM, ALCO, SALI ####[facility] [address] [place] [address] ED NOTEon 07-20-2021 ED NOTE HNO ID: [id number] Author: Agustina Dumont RN Service: ? Author Type: Registered Nurse Type: ED Notes Filed: 12/23/2020 4:30 AM Note Text: After restraint removed noticed bruising to patient bilateral wrist area, around same area that restrained would have been. restraint were not to tight as patient was able to slip out of them. [facility] ED NOTE HNO ID: [id number] Author: Agustina Dumont RN Service: ? Author Type: Registered [...] resting in bed, cooperative at this time. [facility] ED NOTE HNO ID: [id number] Author: Summer Abarca RN Service: ? Author Type: Registered Nurse Type: ED Notes Filed: 12/22/2020 8:03 PM Note Text: Report off to agustina uriostegui. Pt in restraints still w sitter at bs doing every 15 min checks on her. Agustina aware that pt was medicated and placed in restraints at 1705. Made aware that we need new doctor order if still in restraints at 4 hrs from then. Pt was medicated at 1703. w help from inhouse oma and rachelle sitter holding her down w me medicating. [facility] ED NOTE HNO ID: [id number] Author: Agustina Dumont RN Service: ? Author Type: Registered Nurse Type: ED Notes Filed: 12/22/2020 7:49 PM Note Text: .Assumed care of patient, received report from off going nurse. Patient in 4 point violent restraints at this time, resting in bed. DARIELA Tucker at bedside, 1:1 sitter [facility] ED NOTE HNO ID: [id number] Author: Summer Abarca RN Service: ? Author Type: Registered Nurse Type: ED Notes Filed: 12/22/2020 8:11 PM Note Text: Pt still appears agitated and wants to get up- pt at this time in restraints for safety . In house pd outside door, sitter rachelle in doorway . Pt in nad. Remains on cm. Vss.. restraints not too tight or causing pain. Normal [facility] ED NOTE HNO ID: [id number] Author: Summer Abarca RN Service: ? Author [...] 8 by in-house pd oma, myself and rachelle wilkins. I had already had the meds [...] for good pulses and not too tight. corn lab technician to room, colton Waters rn and Marie tate NOM -all aware and down outside door of room 8 . (as well as 2 more security). Pt at no time co pain anywhere and jalil well. Rachelle tech instructed that we need to offer bathrm , food or drink breaks and to cont check all 4 limbs for redness or pain. Normal [facility] ED NOTE HNO ID: [id number] Author: Reddy Gimenez MD Service: ? Author Type: Physician Type: ED Notes Filed: 12/22/2020 10:30 PM Note Text: ED Attending Continuation of Care Note December 22, 2020 4:56 PM Carlos Giron was endorsed to me by Dr. [...] medically clear, awaiting placement. Reddy Gimenez MD [facility] ED NOTE HNO ID: [id number] Author: Summer Abarca RN Service: ? Author Type: Registered Nurse Type: ED Notes Filed: 12/22/2020 3:34 PM Note Text: [facility] ED NOTE HNO ID: [id number] Author: PHIL Regalado Service: ? Author Type: Clinical Security System Sales Consultant Type: ED Notes Filed: 12/22/2020 3:13 PM Note Text: Cordless phone removed from pt.'s room [facility] ED NOTE HNO ID: [id number] Author: PHIL Regalado Service: ? Author Type: Clinical Security System Sales Consultant Type: ED Notes Filed: 12/22/2020 3:17 PM Note Text: Pt on the phone with intake at this time. [facility] ED NOTE HNO ID: [id number] Author: Summer Abarca RN Service: ? Author Type: Registered Nurse Type: ED Notes Filed: 12/22/2020 3:36 PM Note Text: Went to give these meds, haldol and ativan because pt was starting to get angry again and wanting to leave. [facility] ED NOTE HNO ID: [id number] Author: PHIL Regalado Service: ? Author Type: Clinical Security System Sales Consultant Type: ED Notes Filed: 12/22/2020 2:50 PM Note Text: Pt is refusing to keep blood pressure cuff on. Pt is getting agitated. [facility] ED NOTE HNO ID: [id number] Author: Rachelle Flores, PHIL Service: ? Author Type: Clinical Security System Sales Consultant Type: ED Notes Filed: 12/22/2020 12:29 PM Note Text: Pt stated. Would like for her belongings be removed from boyfriends house. [facility] ED NOTE HNO ID: [id number] Author: Summer Abarca RN Service: ? 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 Pt at this time still appears anxious/ [...] pt yelling out I told the fucking printer's devil. I dont fucking care. I better not catch a charge. I was honest. I told them I use marijuana. pt sts hx suicidal. I have been suicidal. I was today. sts this is first time I did anything to hurt myself . [facility] ED NOTE HNO ID: [id number] Author: Alcira Perkins RN Service: ? Author Type: Registered Nurse Type: ED Notes Filed: 12/22/2020 10:52 AM Note Text: Bed: ED-08 Expected date: 12/22/20 Expected time: 10:30 AM Means of arrival: [facility] /EMS Comments: [facility] ED PROV NOTEon 12-22-2020 ED PROV NOTE HNO ID: [id number] Author: Cherise Nieves MD Service: ? Author Type: Physician Type: ED Provider Notes Filed: 12/22/2020 1:35 PM Note Text: ED Provider Note Patient Name: Carlos Giron SERVICE DATE: 12/22/20 History Patient presents with: Psychiatric Problem: ketamine provided on scene 200--pt walked to [facility]. and then when heard she had to come in got very angry, swinging at everyone, per discovery manager didnt make contact. pt cut self on [...] of anterior cruciate ligament ACL tear - [facility] - PAST MEDICAL HISTORY OF 04/24/09 normal [...] symmetric. Psych (more content not included)... Normal [facility] Ethanolon 12-22-2020 Ethanol [Mass/Vol] mg/dL Normal <11 [facility] Comment on above: Performed By: #### C BCDIF, CMP, ACETM, ALCO, SALI ####[facility] [address] [place] [address] Expedited [id number] 12-23-19 21 SARS-CoV-2 (COVID-19) RNA MICHELLE+probe Ql (Unsp spec) UPPER RESPIRATORY TRACT SWAB Normal [facility] Comment on above: Performed By: #### E XCOVD ####[facility] [address] [place] [address] SARS-CoV-2 (COVID-19) RNA MICHELLE+probe Ql (Unsp spec) Negative for COVID19 (SARS CoV2) by RT-PCR or equivalent method. Normal Negative for COVID19 (SARS CoV2) by RT-PCR or equivalent method. [facility] Comment on above: Result Comment: This test has been authorized by FDA under an Emergency Use Authorization (EUA). Performed By: #### E XCOVD ####[facility] [address] [place] [address] Salicylateon 12-22-2020 Salicylate <0.3 Low 3.0-30.0 [facility] Comment on above: Result Comment: The therapeutic range varies and has been reported to be 3.0 to 10.0 mg/dL for anti pyretic/analgesic conditions and 15.0 to 30.0 mg/dL for anti inflammatory/rheumatic fever conditions. Ranges published by the instrument loan officer. Reference ranges and high/low indicator flags are provided as general guidelines only. The treating physician must determine appropriate target levels/dosing based on the specific clinical situation. Performed By: #### C BCDIF, CMP, ACETM, ALCO, SALI ####[facility] [address] [place] [address] Toxicology Screen,Uron 12-22 Amphetamines, Urine Positive Critically abnormal Negative [facility] Comment on above: Result Comment: Cuto ff threshold at 1000 ng/mL. Performed By: #### U TOX2, UA ####[facility] [address] [place] [address] Barbiturates, Urine Negative Normal Negative [facility] Comment on above: Result Comment: Cuto ff threshold at 200 ng/mL. Performed By: #### U TOX2, UA ####[facility] [address] [place] [address] Benzodiazepines, Ur Negative Normal Negative [facility] Comment on above: Result Comment: Cuto ff threshold at 200 ng/mL. Performed By: #### U TOX2, UA ####[facility] [address] [place] [address] Cannabinoids, Urine Positive Critically abnormal Negative [facility] Comment on above: Result Comment: Cuto ff threshold at 50 ng/mL. Performed By: #### U TOX2, UA ####[facility] [address] [place] [address] Cocaine, Urine Negative Normal Negative [facility] Comment on above: Result Comment: Cuto ff threshold at 300 ng/mL. Performed By: #### U TOX2, UA ####[facility] [address] [place] [address] Opiates, Urine Negative Normal Negative [facility] Comment on above: Result Comment: Cuto ff threshold at 300 ng/mL. Performed By: #### U TOX2, UA ####[facility] [address] [place] [address] Oxycodone, Urine Negative Normal Negative [facility] Comment on above: Result Comment: [...] on the same specimen through Client Services ([phone]) if contacted within 48 hours of initial testing. [1]Substance Abuse and Mental Health Services Administration (2012). Clinical Drug Testing in Primary Care Technical Assistance Publication Series 32. Department of Health and Human Services, [place], p.10. Performed By: #### U TOX2, UA ####[facility] [address] [place] [address] Phencyclidine, Urine Negative Normal Negative [facility] Comment on above: Result Comment: Cuto ff threshold at 25 ng/mL. Performed By: #### U TOX2, UA ####[facility] [address] [place] [address] Urinalysison 12-22-2020 Bilirubin, Urine Negative Normal Negative [facility] Comment on above: Performed By: #### U TOX2, UA ####[facility] [address] [place] [address] Clarity (U) Clear Normal Clear [facility] Comment on above: Performed By: #### U TOX2, UA ####[facility] [address] [place] [address] Color (U) Yellow Normal Yellow [facility] Comment on above: Performed By: #### U TOX2, UA ####[facility] [address] [place] [address] Glucose Ql (U) Negative Normal Negative [facility] Comment on above: Performed By: #### U TOX2, UA ####[facility] [address] [place] [address] Hemoglobin/Blood,Ur Negative Normal Negative [facility] Comment on above: Performed By: #### U TOX2, UA ####[facility] [address] [place] [address] Ketones Ql (U) 1+ Critically abnormal Negative [facility] Comment on above: Performed By: #### U TOX2, UA ####[facility] [address] [place] [address] Leukest Negative Normal Negative [facility] Comment on above: Performed By: #### U TOX2, UA ####[facility] [address] [place] [address] Nitrite Ql (U) Negative Normal Negative [facility] Comment on above: Performed By: #### U TOX2, UA ####[facility] [address] [place] [address] pH (U) 6.0 [pH] Normal 5.0-8.0 [facility] Comment on above: Performed By: #### U TOX2, UA ####[facility] [address] [place] [address] Protein, Urine Negative Normal Negative [facility] Comment on above: Performed By: #### U TOX2, UA ####[facility] [address] [place] [phone] Specific Standard, Ur 1.020 Normal 1.005-1.030 [facility] Comment on above: Performed By: #### U TOX2, UA ####[facility] [address] [place] [phone] Urobilinogen Qn (U) 0.2 {[place]'U}/dL Normal 0.2-1.0 [facility] Comment on above: Performed By: #### U TOX2, UA ####[facility] [address] [place] [phone] Serum Beta HCG East/FH/KRISTY/ME D/SL/LOon 12-21-2020 Serum Beta HCG East/FH/KRISTY/MED/SL/LO Negative Normal Negative [facility] Comment on above: Result Comment: Fals e positives and false negatives are rare but have been described. Clinical correlation of the findings is recommended. Performed By: #### B ETAMM ####[facility] [address] [place] [phone] [facility] CARLOS GIRON ([id number]) 1990 F Date Time Provider Department 08/04/20 [...] itchy. Patient reports her pcp is in [place]. Agreeable to contact pcp for advise. Allergies [...] Status:Closed by Rosangela ANDRADE RN on 08/04/20 [facility] C[facility] Telephone (UCWSTR) -------- CARLOS GIRON ([id number]) 1990 F Date Time Provider Department 08/03/20 [facility] During your visit today, we recorded the following information about you: Avani Prieto LPN 08/03/2020 10:55 AM Signed Patient calling was in urgent care 07/30/[address] Lima called in rx for Amox 875 mg one tablet twice daily. Patient said she has rash and is itching. Asking if rx should be changed to something else? Patient [facility]. Please advise Sid Lima MD 08/03/2020 11:37 AM Signed I [...] by GILMA LANDIN LPN on 08/03/20 Normal [facility] CNOVon 07-30-2020 CNOV Office Visit (UCWSTR ) -------- CARLOS GIRON ([id number]) 1990 F Date Time Provider Department 07/30/20 3:30 PM SID LIMA [facility] During your visit today, we recorded the following information about you: Temperature Pulse Respiration Blood pressure 98.6 degrees 98/minute 18/minute 102/72 Weight 92.8 kg Sid Lima MD 07/30/2020 4:34 PM Signed Patient [...] of anterior cruciate ligament ACL tear - PM - PAST MEDICAL HISTORY OF 04/24/09 normal [...] with [facility], facilitated appointment this afternoon. Sid Lima MD Referring Provider: SELF [200] Allergies [...] of submandibular gland [K11.20] Order(s):CONSULT TO ENT [9000] Order #: [id number]: 1 FUTURE Prescriptions as of 07/30/2020 Sig: [...] 07/30/2020 3:44 PM >> MARYURI AGUIAR LPN [facility] Jul 30, 2020 3:44 PM Taking Problem [...] Gonorrhea [A54.9] (more content not included)... Normal [facility] Initial Visit (Gastroenterol ogy)on 05-14-2020 Initial [...] abdominal pain; DERREK = N; Sent To: [facility]; Last Updated By: [employer]; 05/14/2020 1:58:28 PM Nausea with vomiting C [...] Gallbladder; Status:Hold For - Scheduling; Requested for:14May2020; Perform:[facility]; Due:12Aug2020;Ordered; For:Nausea with vomiting; [...] mixing and drinking quickly. This product is zdzq-bjt-lauabog. 5. It is medically recommended that you stop smoking. There are several options available to you to assist in quitting. You can try emhd-wsi-xloevak nicotine patches or gum. You can also [...] Verbal consent was requested and obtained from CARLOS GIRON on this date, 05/14/2020 01:30 PM , for a telehealth visit. GERD and IBS History of Present Lhjxlvq23-ewnu-iqj female spoken to over telephone regarding a [...] Recorded By: Iona Fraser; 05/14/2020 1:13:34 PM [place] [facility] Recorded By: Iona Fraser; 05/14/2020 1:13:34 PM Current Meds Medication NameInstruction ARIPiprazole 15 MG Oral Tablet Cyclobenzaprine HCl - 10 MG Oral Tablet Dicyclomine HCl - 10 MG Oral Capsule Gabapentin 300 MG Oral Capsule Gabapentin 600 MG Oral Tablet lamoTRIgine 150 MG Oral Tablet QUEtiapine Fumarate 25 MG Oral Tablet Sertraline HCl - 100 MG Oral Tablet Vitals Vital Signs Recorded: [id number] 01:13PM Height5 ft 6 in Brmqxa273 lb BMI Jxccfgjhmr91.9 BSA Calculated2.04 Physical Exam Patient is alert and oriented throughout telephone call without conversational dyspnea or cough. Time Time Spent With Patient: 13.5 minutes of which greater than 50 percent was spent counseling and or coordinating care. Signatures Electronically signed by : Lacey Javed PA-C; May 14 2020 2:08PM EST (Author) Normal [facility] PROGRESSon 01-14-2019 PROGRESS HNO ID: [id number] Author: Jeni Pimentel Service: ? Author Type: Nurse Practitioner Type: Progress Notes Filed: 01/14/2019 12:49 PM Note Text: Patient no show for PST. Webb in Scheduling notified and will notify Dr. Collier's office. [facility] CNOVon 10-18-2018 OV Office Visit (GILDAAGAK ) -------- CARLOS GIRON ([id number]) 1990 F Date Time Provider Department 10/18/18 2:45 PM ASHER COLLIER During your visit today, we recorded the following information about you: Pulse Respiration Blood pressure Weight 88/minute 18/minute 148/80 88 kg Height 1.676 m Asher Collier MD 10/18/2018 3:46 PM Signed NEUROSURGERY CONSULT NOTE Asher Collier MD Date of visit: October 17, 2018 Patient Name: Ms.Brittney Rosangela Giron Date of : 1990 Current Age: [age] year old Sex: female MRN/E# [id number] Chief Complaint: Patient presents with: Back Pain: [...] patient's questions have been discussed at length. Asher Collier MD Referring Provider: SON DELAROSA) [[id number]] Allergies As of Date: 10/18/2018 Noted Allergy Reaction IBUPROFEN 10/18/2018 8 - GI Upset TYLENOL #3 (CODEINE) 06/01/2007 8 - GI Upset VICODIN (HYDROCODONE-ACETAMINOPH E*06/01/2007 8 - GI Upset Date Reviewed: 10/18/2018 Reviewed by: Asher Collier - Fully Assessed Reason for Visit: [...] Obesity [E66.9] Letter Text Encounter Status:Closed by ASHER COLLIER MD on 10/18/18 [facility] PROGRESSon 10-18-2018 PROGRESS HNO ID: [id number] Author: Asher Collier Service: ? Author Type: Physician Type: Progress Notes Filed: 10/18/2018 3:46 PM Note Text: NEUROSURGERY CONSULT NOTE Asher Collier MD Date of visit: October 17, 2018 Patient Name: Ms.Brittney Rosangela Giron Date of : 1990 Current Age: [age] year old Sex: female MRN/E# [id number] Chief Complaint: Patient presents with: Back Pain: [...] patient's questions have been discussed at length. Asher Collier MD [facility] CNOVon 09-04-2018 OV Office Visit (AGPOB1 ) -------- CARLOS GIRON ([id number]) 1990 F Date Time Provider Department 09/04/18 10:15 AM CELESTE SAMSON AGPOB1 During your visit today, we [...] Negative for excessive bleeding, clots, bleeding disorders. Celeste Samson MD, MD 09/04/2018 11:13 AM Signed HPI: Carlos Giron is a 28 year old female [...] had injection attempts in the past at [facility] without significant improvement?the pain was not this significant at that time however. Currently taking ibuprofen, motrin, flexeril, diclofenac without significant improvement. Using gabapentin as well from [facility]-but not making any difference @ 100 mg [...] down the right leg. Reviewed report from [facility] showing disc extrusion at L4-5 with compression on the nerve root ASSESSMENT: (M54.41, G89.29) Chronic right-sided low back pain with right-sided sciatica PLAN: ? Discussed diagnosis and treatment options. ? Again encouraged attendance at physical therapy. ? Patient is not interested in surgical consultation at this time. ? After discussion?elected to set up referral to Misha/Cassandra pain management at [facility]. With hopes of injection at the L4-5 [...] if symptoms worsen or fail to improve. Celeste Samson MD Referring Provider: CELESTE SAMSON [[id number]] Allergies As of Date: 09/04/2018 Noted Allergy Reaction TYLENOL #3 (CODEINE) 06/01/2007 8 - GI Upset VICODIN (HYDROCODONE-ACETAMINOPH E*06/01/2007 8 - GI Upset Date Reviewed: 09/04/2018 Reviewed by: Celeste Samson MD - Fully Assessed Reason for Visit: Follow Up [171] Cmt: Lumbar spine Visit Diagnosis:Chronic right-sided low back pain with right-sided sciatica [M54.41, G89.29] Order(s):MRI LUMBAR SPINE WO IVCON [[id number]] Order #: [id number] CONSULT TO PAIN MGT ANESTHESIA [[id number]] Order #: [id number]: 1 Prescriptions as of 09/04/2018 Sig: DICLOFENAC [...] and Disposition History Recorded Encounter Status:Closed by CELESTE SAMSON MD on 09/04/18 [facility] PROGRESSon 09-04-2018 PROGRESS HNO ID: [id number] Author: Celeste Samson MD Service: ? Author Type: Physician Type: Progress Notes Filed: 09/04/2018 11:13 AM Note Text: HPI: Carlos Giron is a 28 year old female [...] had injection attempts in the past at [facility] without significant improvement?the pain was not this significant at that time however. Currently taking ibuprofen, motrin, flexeril, diclofenac without significant improvement. Using gabapentin as well from [facility]-but not making any difference @ 100 mg TID. PAST MEDICAL HISTORY Diagnosis Date - Abnormal Pap smear of cervix 05/2013 [facility] - ADHD (attention deficit hyperactivity disorder) - Bipolar disorder (HCC) - Gonorrhea 04/2013 - Obesity - Old disruption of anterior cruciate ligament ACL tear - [facility] - PAST MEDICAL HISTORY OF 04/24/09 normal [...] down the right leg. Reviewed report from [facility] showing disc extrusion at L4-5 with compression on the nerve root ASSESSMENT: (M54.41, G89.29) Chronic right-sided low back pain with right-sided sciatica PLAN: ? Discussed diagnosis and treatment options. ? Again encouraged attendance at physical therapy. ? Patient is not interested in surgical consultation at this time. ? After discussion?elected to set up referral to Misha/Cassandra pain management at [facility]. With hopes of injection at the L4-5 [...] if symptoms worsen or fail to improve. Celeste Samson MD [facility] PROGRESS HNO ID: [id number] Author: Alena KeeLehigh Valley Hospital - PoconoYamileth Bauer Service: ? Author Type: Tire Fixer Type: Progress Notes Filed: 09/04/2018 11:13 AM [...] Negative for excessive bleeding, clots, bleeding disorders. [facility] CNOVon 07-31-2018 CNOV Office Visit (AGPOB1 ) -------- CARLOS GIRON ([id number]) 1990 F Date Time Provider Department 07/31/18 9:15 AM CELESTE SAMSON AGB1 During your visit today, we recorded the following information about you: Respiration Weight Height 18/minute 98 kg 1.676 m Peterson Crook 07/31/2018 9:36 AM Signed REVIEW OF SYSTEMS: GENERAL: Well developed, well nourished. No acute distress PAIN: Pain 7/10 CARDIOVASCULAR: Negative for chest pain, leg swelling and palpations. MSK: Negative for joint pain, swelling, back pain, muscle pain. SKIN: Negative for lesions, rash, itching, metal sensitivity NEURO: Numbness/tingling of extremties ENDOCRINE: Negative for Diabetes Type 1 and Type 2 HEMATOLOGY: Negative for excessive bleeding, clots, bleeding disorders. Patient statrts p.t in one week. Celeste Samson MD, MD 07/31/2018 9:36 AM Signed HPI: Carlos Giron is a 27 year old female [...] lack of any improvement. Return for MRIresults. Celeste Samson MD Referring Provider: SELF [200] Allergies As of Date: 07/31/2018 Noted Allergy Reaction TYLENOL #3 (CODEINE) 06/01/2007 8 - GI Upset VICODIN (HYDROCODONE-ACETAMINOPH E*06/01/2007 8 - GI Upset Date Reviewed: 07/31/2018 Reviewed by: Celeste Samson MD - Fully Assessed Reason for Visit: Follow Up [171] Cmt: back and leg Primary Visit Diagnosis:Chronic right-sided low back pain with right-sided sciatica [M54.41, G89.29] Order(s):MRI LUMBAR SPINE WO IVCON [[id number]] Order #: [id number] FUTURE diclofenac potassium (CATAFLAM) 50 mg tabletTake [...] and Disposition History Recorded Encounter Status:Closed by CELESTE SAMSON MD on 07/31/18 [facility] PROGRESSon 07-31-2018 PROGRESS HNO ID: [id number] Author: Celeste Samson MD Service: (none) Author Type: Physician Type: Progress Notes Filed: 07/31/2018 9:36 AM Note Text: HPI: Carlos Giron is a 27 year old female [...] lack of any improvement. Return for MRIresults. Celeste Samson MD [facility] PROGRESS HNO ID: [id number] Author: Victoria ([employer] Reich Service: (none) Author Type: Security System Sales Consultant Type: Progress Notes Filed: 07/31/2018 9:36 AM [...] Patient statrts p.t in one week. Normal [facility] CNOVon 07-17-2018 CNOV Office Visit (AGPOB1 ) -------- CARLOS GIRON ([id number]) 1990 F Date Time Provider Department 07/17/18 10:30 AM CELESTE SAMSON AGPOB1 During your visit today, we recorded the following information about you: Respiration Weight Height 17/minute 98 kg 1.676 m [employer] 07/17/2018 1:37 PM Signed REVIEW OF SYSTEMS: [...] sit up straight due to back pain. Celeste Samson MD, MD 07/17/2018 1:45 PM Addendum HPI: Carlos Giron is a 27 year old female [...] maybe 4 or 5 months ago @ [facility]. Patient has had low back pain since age 15-it is central low back pain-and now has the pain down the right leg that radiates and causes numbness and tingling. Has not been to PT; Uses naproxen, ibuprofen, mobic; shots in the back no help (before the fall); has medicare and [employer]. Has health mental health issues and is disabled bc of this. PAST MEDICAL HISTORY Diagnosis Date - Abnormal Pap smear of cervix 05/2013 [facility] - ADHD (attention deficit hyperactivity disorder) - Bipolar disorder (HCC) - Gonorrhea 04/2013 - Obesity - Old disruption of anterior cruciate ligament ACL tear - PM - PAST MEDICAL HISTORY OF 04/24/09 normal [...] apears to have dextroscoliosis lumbar spine, ROM 59-48-vryjni to extend, TTP roshni lumbar spine, paraspinal [...] Return in about 4 weeks (around 08/14/2018). 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] Order(s):XR LUMBAR LIMITED 2V FLEX/EXT [[id number]] Order #: [id number] CONSULT TO PHYSICAL THERAPY (AG) [[id number]] Order #: [id number]: 1 methylPREDNISolone (MEDROL, RACHEL,) 4 mg Dose-PackTake [...] SULFATE HFA 90 MCG/ACTUATION AEROSOL INHALER >> [facility] 07/17/2018 10:58 AM >> [employer] Meeta Jul 17, 2018 10:58 AM Not stated LAMOTRIGINE 25 MG TABLET >> [facility] 07/17/2018 10:58 AM >> REICH [employer] hal Jul 17, 2018 10:58 AM Not stated BUPROPION XL 300 MG 24 HR TAB >> [facility] 07/17/2018 10:52 AM >> REICH [employer] hal Jul 17, 2018 10:52 AM Not given CLONAZEPAM ORAL >> [facility] 07/17/2018 10:58 AM >> REICH [employer] Jul 17, 2018 10:58 AM Not stated [...] and Disposition History Recorded Encounter Status:Closed by CELESTE SAMSON MD on 07/17/18 [facility] PROGRESSon 07-17-2018 PROGRESS HNO ID: [id number] Author: Celeste Samson MD Service: (none) Author Type: Physician Type: Progress Notes Filed: 07/17/2018 1:45 PM Note Text: HPI: Carlos Giron is a 27 year old female [...] maybe 4 or 5 months ago @ [facility]. Patient has had low back pain since age 15-it is central low back pain-and now has the pain down the right leg that radiates and causes numbness and tingling. Has not been to PT; Uses naproxen, ibuprofen, mobic; shots in the back no help (before the fall); has medicare and Jike Xueyuan. Has health mental health issues and is [...] apears to have dextroscoliosis lumbar spine, ROM [id number] to extend, TTP roshni lumbar spine, paraspinal [...] Return in about 4 weeks (around 08/14/2018). Celeste Samson MD Normal [facility] PROGRESS HNO ID: [id number] Author: Victoria (Tech) Reich Service: (none) Author Type: Security System Sales Consultant Type: Progress Notes Filed: 07/17/2018 1:37 PM [...] up straight due to back pain. Normal [facility] Vital Signs Date Time Vital Sign Value Performing Clinician Facility 03-14-2025 08:190400 Body height 167.6 cm BLACK TRUJILLO DPM [facility] 03-14-2025 08:19-0400 Body weight 106.8 kg BLACK TRUJILLO DPM [facility] 03-14-2025 08:19-0400 Body weight 38.02 kg/m2 BLACK TRUJILLO DPM [facility] 03-14-2025 08:19-0400 Diastolic Blood Pressure Non-Invasive 77 mm[Hg] BLACK SUPPAN DPM [facility] 03-14-2025 08:19-0400 Heart rate 81 /min BLACK SUPPAN DPM [facility] 03-14-2025 08:19-0400 Respiratory rate 20 /min BLACK SUPPAN DPM [facility] 03-14-2025 08:19-0400 Systolic Blood Pressure Non-Invasive 114 mm[Hg] BLACK SOTELOAN DPM [facility] 02-07-2025 08:03-0400 Body height 167.64 cm Nataliya Gomez MD Work Phone: [facility] 02-07-2025 08:03-0400 Body mass index (BMI) [Ratio] 37.1 kg/m2 Nataliya Gomez MD Work Phone: [facility] 02-07-2025 08:03-0400 Body weight 104.32 kg Nataliya Gomez MD Work Phone: [facility] 12-24-2024 13:46-0400 Body height 167.6 cm Temo Basurto MD Work Phone: [facility] 12-24-2024 13:46-0400 Body mass index (BMI) [Ratio] 39.54 kg/m2 Temo Basurto MD Work Phone: [facility] 12-24-2024 13:46-0400 Body weight 111.13 kg Temo Basurto MD Work Phone: [facility] 12-16-2024 07:10-0400 Body temperature 97 [degF] Nataliya Gomez MD Work Phone: [facility] 12-16-2024 07:10-0400 Diastolic blood pressure 103 mm[Hg] Nataliya Gomez MD Work Phone: [facility] 12-16-2024 07:10-0400 Heart rate 86 /min Nataliya Gomez MD Work Phone: [facility] 12-16-2024 07:10-0400 Respiratory rate 16 /min Nataliya Gomez MD Work Phone: [facility] 12-16-2024 07:10-0400 SaO2% (BldA) [Mass fraction] 98 % Nataliya Gomez MD Work Phone: [facility] 12-16-2024 07:10-0400 Systolic blood pressure 120 mm[Hg] Nataliya Gomez MD Work Phone: [facility] 12-16-2024 06:08-0400 Body height 167.64 cm Nataliya Gomez MD Work Phone: [facility] 12-16-2024 06:08-0400 Body mass index (BMI) [Ratio] 38 kg/m2 Nataliya Gomez MD Work Phone: [facility] 12-16-2024 06:08-0400 Body weight 107 kg Nataliya Gomez MD Work Phone: [facility] 11-20-2024 09:29-0400 Body mass index (BMI) [Ratio] 39.54 kg/m2 Temo Basurto MD Work Phone: [facility] 11-20-2024 09:29-0400 Body weight 111.13 kg Temo Basurto MD Work Phone: [facility] 11-07-2024 14:00-0400 Body height 167.6 cm Megan Rockwell CNP Work Phone: [facility] 11-07-2024 14:00-0400 Body mass index (BMI) [Ratio] 38.77 kg/m2 Megan Mason APRN - SMASHER Work Phone: [facility] 11-07-2024 14:00-0400 Body weight 108.95 kg Megan Mason [employer]IGH [employer]CHOOL PHYSICAL EDUCATION TEACHER - SMASHER Work Phone: [facility] 11-07-2024 14:00-0400 Diastolic blood pressure 71 mm[Hg] Megan Mason [employer]IGH SCHOOL PHYSICAL EDUCATION TEACHER - SMASHER Work Phone: [facility] 11-07-2024 14:00-0400 Heart rate 101 /min Megan Mason [employer] PH[employer]ICAL EDUCATION TEACHER - SMASHER Work Phone: [facility] 11-07-2024 14:00-0400 Systolic blood pressure 106 mm[Hg] Megan Mason HIGH SCHO[employer] PHYSICAL EDUCATION TEACHER - SMASHER Work Phone: [facility] 10-23-2024 14:55-0400 Heart rate 89 /min Nataliya Gomez MD Work Phone: [facility] 10-23-2024 14:55-0400 Respiratory rate 17 /min Nataliya Gomez MD Work Phone: [facility] 10-23-2024 14:55-0400 SaO2% (BldA) [Mass fraction] 99 % Nataliya Gomez MD Work Phone: [facility] 10-23-2024 12:58-0400 Body temperature 97.9 [degF] Nataliya Gomez MD Work Phone: [facility] 10-23-2024 12:58-0400 Diastolic blood pressure 88 mm[Hg] Nataliya Gomez MD Work Phone: [facility] 10-23-2024 12:58-0400 Systolic blood pressure 136 mm[Hg] Nataliya Gomez MD Work Phone: [facility] 10-23-2024 12:56-0400 Body height 167.64 cm Nataliya Gomez MD Work Phone: [facility] 10-23-2024 12:56-0400 Body mass index (BMI) [Ratio] 38.5 kg/m2 Nataliya Gomez MD Work Phone: [facility] 10-23-2024 12:56-0400 Body weight 108.4 kg Nataliya Gomez MD Work Phone: [facility] 10-16-2024 12:14-0400 Body height 167.6 cm Valeri Kwok MD Work Phone: [facility] 10-16-2024 12:14-0400 Body mass index (BMI) [Ratio] 40.19 kg/m2 Valeri Kwok MD Work Phone: [facility] 10-16-2024 12:14-0400 Body weight 112.95 kg Valeri Kwok MD Work Phone: [facility] 10-16-2024 12:14-0400 Diastolic blood pressure 84 mm[Hg] Valeri Kwok MD Work Phone: [facility] 10-16-2024 12:14-0400 Systolic blood pressure 126 mm[Hg] Valeri Kwok MD Work Phone: [facility] 08-15-2024 13:58-0400 Body height 167.6 cm Megan Mason HIGH SCHOOL PHYSICAL EDUCATION TEACHER - SMASHER Work Phone: [facility] 08-15-2024 13:58-0400 Body mass index (BMI) [Ratio] 40.48 kg/m2 Megan Mason HIGH SCHOOL PHYSICAL EDUCATION TEACHER - SMASHER Work Phone: [facility] 08-15-2024 13:58-0400 Body weight 113.76 kg Megan Mason [employer]IGH [employer]CHO[employer] PH[employer]ICAL EDUCATION TEACHER - SMASHER Work Phone: [facility] 08-15-2024 13:58-0400 Diastolic blood pressure 80 mm[Hg] Megan Mason HIGH SCHOOL PHYSICAL EDUCATION TEACHER - SMASHER Work Phone: [facility] 08-15-2024 13:58-0400 Heart rate 97 /min Megan Mason [employer]IGH [employer]CHO[employer] PH[employer]ICAL EDUCATION TEACHER - SMASHER Work Phone: [facility] 08-15-2024 13:58-0400 Systolic blood pressure 117 mm[Hg] Megan Mason HIGH SCHOOL PHYSICAL EDUCATION TEACHER - SMASHER Work Phone: [facility] 05-23-2024 14:32-0500 Body height 167.6 cm Megan Mason HIGH SCHOOL PHYSICAL EDUCATION TEACHER - SMASHER Work Phone: [facility] 05-23-2024 14:32-0500 Body mass index (BMI) [Ratio] 39.45 kg/m2 Megan Mason HIGH SCHOOL PHYSICAL EDUCATION TEACHER - SMASHER Work Phone: [facility] 05-23-2024 14:32-0500 Body weight 110.86 kg Megan Mason HIGH SCHOOL PHYSICAL EDUCATION TEACHER - SMASHER Work Phone: [facility] 05-23-2024 14:32-0500 Diastolic blood pressure 69 mm[Hg] Megan Mason HIGH SCHOOL PHYSICAL EDUCATION TEACHER - SMASHER Work Phone: [facility] 05-23-2024 14:32-0500 Heart rate 81 /min Megan Mason HIGH SCHOOL PHYSICAL EDUCATION TEACHER - SMASHER Work Phone: [facility] 05-23-2024 14:32-0500 Systolic blood pressure 106 mm[Hg] Megan Mason HIGH SCHOOL PHYSICAL EDUCATION TEACHER - SMASHER Work Phone: [facility] 02-28-2024 14:39-0400 Body height 167.6 cm Megan Mason HIGH SCHOOL PHYSICAL EDUCATION TEACHER - SMASHER Work Phone: [facility] 02-28-2024 14:39-0400 Body mass index (BMI) [Ratio] 40.42 kg/m2 Megan Mason HIGH SCHOOL PHYSICAL EDUCATION TEACHER - SMASHER Work Phone: [facility] 02-28-2024 14:39-0400 Body weight 113.58 kg Megan Mason HIGH SCHOOL PHYSICAL EDUCATION TEACHER - SMASHER Work Phone: [facility] 02-28-2024 14:39-0400 Diastolic blood pressure 89 mm[Hg] Megan Mason HIGH SCHOOL PHYSICAL EDUCATION TEACHER - SMASHER Work Phone: [facility] 02-28-2024 14:39-0400 Heart rate 79 /min Megan Marlon HIGH SCHOOL PHYSICAL EDUCATION TEACHER - SMASHER Work Phone: [facility] 02-28-2024 14:39-0400 Systolic blood pressure 125 mm[Hg] Megan Marlon HIGH SCHOOL PHYSICAL EDUCATION TEACHER - SMASHER Work Phone: [facility] 12-13-2023 12:13-0400 Body height 167.6 cm Valeri Kwok MD Work Phone: [facility] 12-13-2023 12:13-0400 Body mass index (BMI) [Ratio] 40.19 kg/m2 Valeri Kwok MD Work Phone: [facility] 12-13-2023 12:13-0400 Body weight 112.95 kg Valeri Kwok MD Work Phone: [facility] 12-13-2023 12:13-0400 Diastolic blood pressure 76 mm[Hg] Valeri Kwok MD Work Phone: [facility] 12-13-2023 12:13-0400 Systolic blood pressure 124 mm[Hg] Valeri Kwok MD Work Phone: [facility] 10-31-2023 12:55-0400 Body height 167.6 cm Megan Marlon HIGH SCHOOL PHYSICAL EDUCATION TEACHER - SMASHER Work Phone: [facility] 10-31-2023 12:55-0400 Body mass index (BMI) [Ratio] 41.19 kg/m2 Megan Mason HIGH SCHOOL PHYSICAL EDUCATION TEACHER - SMASHER Work Phone: [facility] 10-31-2023 12:55-0400 Body weight 115.76 kg Megan Mason HIGH SCHOOL PHYSICAL EDUCATION TEACHER - SMASHER Work Phone: [facility] 10-31-2023 12:55-0400 Diastolic blood pressure 82 mm[Hg] Megan Mason HIGH SCHOOL PHYSICAL EDUCATION TEACHER - SMASHER Work Phone: [facility] 10-31-2023 12:55-0400 Heart rate 96 /min Megan Mason HIGH SCHOOL PHYSICAL EDUCATION TEACHER - SMASHER Work Phone: [facility] 10-31-2023 12:55-0400 Systolic blood pressure 127 mm[Hg] Megan Mason HIGH SCHOOL PHYSICAL EDUCATION TEACHER - SMASHER Work Phone: [facility] 06-21-2023 12:17-0500 Body mass index (BMI) [Ratio] 40.19 kg/m2 Megan Colladolellan [employer]IGH SCHOOL PHYSICAL EDUCATION TEACHER - SMASHER Work Phone: [facility] 06-21-2023 12:17-0500 Body weight 112.95 kg Megan Mason HIGH [employer]CHOOL PHYSICAL EDUCATION TEACHER - SMASHER Work Phone: [facility] 06-21-2023 12:17-0500 Diastolic blood pressure 88 mm[Hg] Megan Mason HIGH SCHOOL PHYSICAL EDUCATION TEACHER - SMASHER Work Phone: [facility] 06-21-2023 12:17-0500 Heart rate 105 /min Megan Colladolellan HIGH SCHOOL PHYSICAL EDUCATION TEACHER - SMASHER Work Phone: [facility] 06-21-2023 12:17-0500 Systolic blood pressure 129 mm[Hg] Megan Mason HIGH SCHOOL PHYSICAL EDUCATION TEACHER - SMASHER Work Phone: [facility] 05-11-2023 08:28-0500 Body mass index (BMI) [Ratio] 39.38 kg/m2 Megan Mason [employer]IGH [employer]CHO[employer] PHYSICAL EDUCATION TEACHER - SMASHER Work Phone: [facility] 05-11-2023 08:28-0500 Body weight 110.68 kg Megan Mason HIGH SCHOOL PHYSICAL EDUCATION TEACHER - SMASHER Work Phone: [facility] 05-11-2023 08:28-0500 Diastolic blood pressure 81 mm[Hg] Megan Marlon [employer]IGH SCHOOL PHYSICAL EDUCATION TEACHER - SMASHER Work Phone: [facility] 05-11-2023 08:28-0500 Heart rate 90 /min Megan Marlon HIGH SCHOOL PHYSICAL EDUCATION TEACHER - SMASHER Work Phone: [facility] 05-11-2023 08:28-0500 Systolic blood pressure 117 mm[Hg] Megan Mason HIGH SCHOOL PHYSICAL EDUCATION TEACHER - SMASHER Work Phone: [facility] 04-11-2023 14:10-0500 Diastolic Blood Pressure Non-Invasive 89 1 NIDAL CHOUJAA DO [facility] 04-11-2023 14:10-0500 Heart rate 97 /min NIDAL CHOUJAA DO [facility] 04-11-2023 14:10-0500 Reason For Taking VItal Signs NIDAL CHOUJAA DO [facility] 04-11-2023 14:10-0500 Respiratory rate 18 /min NIDAL CHOUJAA DO [facility] 04-11-2023 14:10-0500 Systolic Blood Pressure Non-Invasive 138 1 NIDAL CHOUJAA DO [facility] 04-11-2023 12:33-0500 Heart rate 100 /min NIDAL CHOUJAA DO [facility] 04-11-2023 12:33-0500 Respiratory rate 18 /min NIDAL CHOUJAA DO [facility] 04-11-2023 12:03-0500 Body temperature 98.06 [degF] NIDAL CHOUJAA DO [facility] 04-11-2023 12:03-0500 Diastolic Blood Pressure Non-Invasive 87 1 NIDAL CHOUJAA DO [facility] 04-11-2023 12:03-0500 Heart rate 100 /min NIDAL CHOUJAA DO [facility] 04-11-2023 12:03-0500 Respiratory rate 18 /min NIDAL CHOUJAA DO [facility] 04-11-2023 12:03-0500 Systolic Blood Pressure Non-Invasive 131 1 NIDAL CHOUJAA DO [facility] 02-18-2023 11:38-[address] MONTANA JUSTICE MD [facility] 02-18-2023 11:38-0400 Body temperature 97.7 [degF] DR MONTANA JUSTICE MD [facility] 02-18-2023 11:38-0400 Diastolic Blood Pressure Non-Invasive [address] MONTANA JUSTICE MD [facility] 02-18-2023 11:38-0400 Heart rate 77 /min DR MONTANA JUSTICE MD [facility] 02-18-2023 11:38-0400 Respiratory rate 16 /min DR MONTANA JUSTICE MD [facility] 02-18-2023 11:38-0400 Systolic Blood Pressure Non-Invasive [address] MONTANA JUSTICE MD [facility] 12-18-2022 12:54-0400 Body temperature 98.06 [degF] HELGA PHELPS MD [facility] 12-18-2022 12:54-0400 Diastolic Blood Pressure Non-Invasive 75 1 HELGA PHELPS MD [facility] 12-18-2022 12:54-0400 Heart rate 94 /min HELGA PHELPS MD [facility] 12-18-2022 12:54-0400 Respiratory rate 18 /min HELGA PHELPS MD [facility] 12-18-2022 12:54-0400 Systolic Blood Pressure Non-Invasive 111 1 HELGA PHELPS MD [facility] 10-06-2022 10:18-0400 Body height 167.6 cm [facility] Schedule [facility] 10-06-2022 10:18-0400 Body mass index (BMI) [Ratio] 38.41 kg/m2 [facility] Schedule [facility] 10-06-2022 10:18-0400 Body weight 107.96 kg [facility] Schedule [facility] 10-06-2022 10:18-0400 Diastolic blood pressure 81 mm[Hg] [facility] Schedule [facility] 10-06-2022 10:18-0400 Heart rate 94 /min [facility] Schedule [facility] 10-06-2022 10:18-0400 Systolic blood pressure 122 mm[Hg] [facility] Schedule [facility] 10-06-2022 09:16-0400 Body mass index (BMI) [Ratio] 38.58 kg/m2 Perry Mckeon MD Work Phone: [facility] 10-06-2022 09:16-0400 Body weight 108.41 kg Perry Mckeon MD Work Phone: [facility] 10-06-2022 09:16-0400 Diastolic blood pressure 81 mm[Hg] Perry Mckeon MD Work Phone: [facility] 10-06-2022 09:16-0400 Heart rate 80 /min Perry Mckeon MD Work Phone: [facility] 10-06-2022 09:16-0400 Systolic blood pressure 122 mm[Hg] Perry Mckeon MD Work Phone: [facility] 04-14-2022 12:07-0500 Diastolic blood pressure 61 mm[Hg] AUBREY CASTILLO DO [facility] 04-14-2022 12:07-0500 Heart rate 110 /min AUBREY CASTILLO DO [facility] 04-14-2022 12:07-0500 Respiratory rate 18 /min AUBREY FROMMELT DO [facility] 04-14-2022 12:07-0500 Systolic blood pressure 121 mm[Hg] AUBREY FROMMELT DO [facility] 04-14-2022 10:30-0500 Heart rate 104 /min AUBREY FROMMELT DO [facility] 04-14-2022 10:30-0500 Respiratory rate 18 /min AUBREY FROMMELT DO [facility] 04-14-2022 10:29-0500 Heart rate 118 /min AUBREY FROMMELT DO [facility] 04-14-2022 10:29-0500 Respiratory rate 20 /min AUBREY FROMMELT DO [facility] 04-14-2022 09:43-0500 Body temperature 99.14 [degF] AUBREY MARTINMELT DO [facility] 04-14-2022 09:43-0500 Body weight 98.2 kg AUBREY FROMMELT DO [facility] 04-14-2022 09:43-0500 Diastolic Blood Pressure Non-Invasive 98 1 AUBREY MARTINMELT DO [facility] 04-14-2022 09:43-0500 Systolic Blood Pressure Non-Invasive 146 1 AUBREY MARTINMELT DO [facility] 01-12-2022 21:38-0400 Body temperature 98.06 [degF] DR CELESTE COURTNEY MD [facility] 01-12-2022 21:38-0400 Diastolic blood pressure 69 mm[Hg] DR CELESTE COURTNEY MD [facility] 01-12-2022 21:38-0400 Heart rate 80 /min DR CELESTE COURTNEY MD [facility] 01-12-2022 21:38-0400 Respiratory rate 16 /min DR CELESTE COURTNEY MD [facility] 01-12-2022 21:38-0400 Systolic blood pressure 103 mm[Hg] DR CELESTE COURTNEY MD [facility] 12-30-2021 01:11-0400 Heart rate 98 /min MAGNUS OH MD [facility] 12-30-2021 01:11-0400 Respiratory rate 20 /min MAGNUS OH MD [facility] 12-30-2021 00:36-0400 Body temperature 98.42 [degF] MAGNUS OH MD [facility] 12-30-2021 00:36-0400 Diastolic blood pressure 79 mm[Hg] MAGNUS OH MD [facility] 12-30-2021 00:36-0400 Heart rate 100 /min MAGNUS OH MD [facility] 12-30-2021 00:36-0400 Respiratory rate 22 /min MAGNUS OH MD [facility] 12-30-2021 00:36-0400 Systolic blood pressure 131 mm[Hg] MAGNUS OH MD [facility] 10-12-2021 20:58-0400 Body height 167.6 cm Marcus Carrera MD Work Phone: [facility] 10-12-2021 20:58-0400 Body temperature 98.6 [degF] Marcus Carrera MD Work Phone: [facility] 10-12-2021 20:58-0400 Diastolic blood pressure 71 mm[Hg] Marcus Carrera MD Work Phone: [facility] 10-12-2021 20:58-0400 Heart rate 92 /min Marcus Carrera MD Work Phone: [facility] 10-12-2021 20:58-0400 Respiratory rate 12 /min Marcus Carrera MD Work Phone: [facility] 10-12-2021 20:58-0400 SaO2% (BldA) [Mass fraction] 95 % Marcus Carrera MD Work Phone: [facility] 10-12-2021 20:58-0400 Systolic blood pressure 116 mm[Hg] Marcus Carrera MD Work Phone: [facility] 05-14-2020 15:13-0500 BMI (Body Mass Index) 33.9 kg/m2 Lacey Javed [facility] Work Phone: 05-14-2020 15:13-0500 Body weight 95.26 kg Lacey Javed [facility] Work Phone: 05-14-2020 15:13-0500 BSA (Body Surface Area) 2.04 m2 Lacey Javed [facility] Work Phone: 05-14-2020 15:13-0500 Height 167.64 cm Lacey Javed [facility] Work Phone: Encounters Encounter Date Encounter Type Care Provider Facility Start: 04-04-2025 Encounter for other preprocedural examination [facility] Start: 03-21-2025 ambulatory BLACK PORTERM Faci lity:[facility] Start: 03-14-2025 End: 03-14-2025 Admission to establishment BLACK TRUJILLO DPM [facility] Start: 03-14-2025 End: 03-14-2025 ambulatory BLACK TRUJILLO DPM Facility[facility] Start: 02-07-2025 End: 02-07-[address] Jj Fox MD -[facility] Start: 02-07-2025 End: 02-07-2025 ambulatory Nataliya Gomez MD Work Phone: -[facility] Start: 01-28-2025 End: 01-28-2025 Patient encounter procedure Moses Katia DO -[facility] Work Phone: Start: 01-28-2025 End: 01-28-2025 ambulatory Nataliya Gomez MD Work Phone: -[facility] Start: 01-22-2025 End: 01-22-2025 ambulatory VALERI KWOK [facility] Start: 01-15-2025 End: 01-15-2025 ambulatory Nataliya Gomez MD Work Phone: -Nuclear Medicine [facility] Start: 01-15-2025 End: 01-15-2025 Patient encounter procedure Moses Montalvo DO -Nuclear Medicine [facility] Work Phone: Start: 01-15-2025 End: 01-15-2025 ambulatory Moses Montalvo Facility:[facility] Start: 12-24-2024 End: 12-24-2024 Telephone encounter Megan Mason APRN - SMASHER Work Phone: [facility] Comment on above: Appointment Start: 12-24-2024 End: 12-24-2024 Office outpatient visit 15 minutes Temo Basurto MD Work Phone: [facility] Comment on above: Throat discomfort (P rimary Dx); Oral thrush; Laryngopharyngeal reflux (LPR); Throat clearing Intractable chronic migraine without aura and without status migrainosus (Primary Dx) Start: 12-24-2024 End: 12-24-2024 ambulatory MEGAN MASON [facility] Start: 12-24-2024 End: 12-24-2024 ambulatory [facility] Start: 12-16-2024 ambulatory Nataliya Gomez Facility:[facility] Start: 12-16-2024 Non-patient / Non-visit Moses Tariq kavon DO -[facility] Start: 12-16-2024 End: 12-16-2024 Admission to same day surgery center Moses Montalvo DO -Endoscopy Work Phone: Start: 12-16-2024 End: 12-16-2024 ambulatory Nataliya Gomez MD Work Phone: -Endoscopy Start: 12-11-2024 End: 12-11-2024 Telephone encounter Megan Mason APRN - SMASHER Work Phone: [facility] Comment on above: Med Management (Quli mud analysis well logging captain update ) Start: 12-11-2024 ambulatory Moses Katia Facility :[facility] Start: 11-28-2024 ambulatory Moses [place] Facility :[facility] Start: 11-26-2024 End: 11-26-2024 ambulatory Nataliya Gomez MD Work Phone: -Cat Scan [facility] Start: 11-26-2024 End: 11-26-2024 Patient encounter procedure Moses Montalvo DO -Cat Scan [facility] Work Phone: Start: 11-26-2024 End: 11-26-2024 ambulatory Nataliya Gomez Facility:[facility] Start: 11-20-2024 End: 11-20-2024 Office outpatient new 45 minutes Temo Basurto MD Work Phone: [facility] Comment on above: Oropharyngeal candid iasis (Primary Dx); Laryngopharyngeal reflux (LPR); Oral thrush; Throat discomfort; Throat clearing Start: 11-20-2024 End: 11-20-2024 ambulatory [facility] Start: 11-15-2024 End: 11-15-2024 ambulatory Nataliya Gomez MD Work Phone: [facility] Work Phone: Start: 11-15-2024 End: 11-15-2024 Patient encounter procedure Moses Montalvo DO -Ultrasound [facility] Work Phone: Start: 11-15-2024 End: 11-15-2024 ambulatory Moses Montalvo Facility:[facility] Start: 11-08-2024 End: 11-08-2024 Patient encounter procedure Moses Montalvo DO -Laboratory Rosina Mason Start: 11-08-2024 End: 11-08-2024 Refill Son Silva PharmD [facility] Neurology [facility] Start: 11-07-2024 End: 11-07-2024 Office outpatient visit 25 minutes Megan Marlon HIGH [employer]CHO[employer] PH[employer]ICAL EDUCATION TEACHER - [facility] Work Phone: [facility] Comment on above: Intractable chronic migraine without aura and without status migrainosus (Primary Dx) Start: 11-07-2024 End: 11-08-2024 ambulatory MEGANTamera MASON [facility]ly [facility] Start: 11-02-2024 End: 11-02-2024 ambulatory Nataliya Gomez MD Work Phone: [facility] Work Phone: Start: 11-02-2024 End: 11-02-[address] Nataliya Gomez MD -[facility] Work Phone: Start: 11-02-2024 End: 11-02-2024 ambulatory Nataliya Gomez Facility:[facility] Start: 10-24-2024 End: 10-24-2024 ambulatory Nataliya Gomez MD Work Phone: [facility] Work Phone: Start: 10-24-2024 End: 10-24-2024 Patient encounter procedure Mosesmanuelito Montalvo DO -Laboratory Work Phone: Start: 10-24-2024 End: 10-24-2024 Patient encounter procedure Moses Montalvo DO -[facility] Work Phone: Start: 10-24-2024 End: 10-24-2024 ambulatory Nataliya Gomez [facility] Start: 10-24-2024 End: 10-24-2024 ambulatory [facility] Facility:[facility] Start: 10-23-2024 End: 10-23-2024 Emergency department patient visit Nataliya Gomez MD Work Phone: -Emergency Department Work Phone: Start: 10-21-2024 End: 10-21-2024 Orders Only Valeri Kwok MD Work Phone: [facility] PRE PROCEDURE Start: 10-16-2024 End: 10-16-2024 Telephone encounter Valeri Kwok MD Work Phone: [facility] Comment on above: Medication Problem Medication Problem ( Patient states the Slynd is not covered and wants to know if she get get another medication prescribed. She states she wants to continue not having periods and doesn't want it to cause weight gain. Please call and advise. Thank you.) Start: 10-16-2024 End: 10-16-2024 Office outpatient visit 15 minutes Valeri Kwok MD Work Phone: [facility] Comment on above: Weight gain (Primary Dx); Encounter for initial prescription of contraceptive pills Start: 10-16-2024 End: 10-16-2024 ambulatory VALERI KWOK [facility] Start: 10-03-2024 End: 10-03-[address] Sid Villarreal MD -Laboratory Specimen Work Phone: Start: 10-03-2024 End: 10-03-20[facility] Start: 09-23-2024 End: 09-25-2024 Telephone encounter Valeri Kwok MD Work Phone: [facility] Comment on above: Medication Problem Start: 09-05-2024 End: 09-06-2024 Telephone encounter Megan Rockwell CNP Work Phone: [facility] Start: 09-04-2024 End: 09-04-2024 ambulatory [facility] Start: 09-04-2024 End: 09-04-2024 Patient encounter procedure [facility] Start: 08-22-2024 End: 08-22-2024 ambulatory NATALIYA GOMEZ [facility] Start: 08-19-2024 End: 08-19-2024 ambulatory Nataliya Gomez MD Work Phone: [facility] Work Phone: Start: 08-19-2024 End: 08-19-[address] Nataliya Gomez MD -Radiology, [place] Work Phone: Start: 08-19-2024 End: 08-19-2024 ambulatory Nataliya Gomez Facility:[facility] Start: 08-15-2024 End: 08-15-2024 Patient encounter procedure Megan Mason [employer] - SMASHER Work Phone: [facility] Comment on above: Intractable chronic migraine without aura and without status migrainosus (Primary Dx) Start: 08-15-2024 End: 08-15-2024 ambulatory MEGAN MASON [facility] Start: 07-29-2024 End: 07-29-2024 Telephone encounter Megan Mason [employer]UC[employer] TE[employer]ER - SMASHER Work Phone: [facility] Neurology [facility] Comment on above: Advice Only Start: 07-06-2024 End: 07-09-2024 Refill Claudia Hall MD Work Phone: [facility] Obstetrics and Gynecology - [place] Comment on above: Encounter for survei llance of contraceptive pills Start: 07-02-2024 End: 07-04-2024 ambulatory [facility] Start: 07-02-2024 End: 07-04-2024 Patient encounter procedure [facility]akar [facility] Start: 07-02-2024 End: 07-04-2024 Telephone encounter Megan Mason [employer] TE[employer]ER - SMASHER Work Phone: [facility] Comment on above: Medication Question Med Management Start: 07-01-2024 End: 07-01-2024 Refill Megan Mason [employer]UC[employer] TE[employer]ER - SMASHER Work Phone: [facility] Clinical Communication Start: 06-06-2024 End: 06-06-2024 ambulatory NATALIYA GOMEZ [facility] Start: 05-23-2024 End: 05-23-2024 Patient encounter procedure Megan Mason [employer] TE[employer]ER - SMASHER Work Phone: [facility] Comment on above: Intractable chronic migraine without aura and without status migrainosus (Primary Dx) Start: 05-23-2024 End: 05-23-2024 ambulatory MEGANLIZBETH MASON [facility] Start: 04-15-2024 End: 04-15-2024 Refill Megan Mason [employer] TE[employer]ER - SMASHER Work Phone: [facility] Start: 04-15-2024 End: 04-15-2024 [facility] Start: 04-05-2024 End: 04-05-2024 Refill Claudia Hall MD Work Phone: [facility] Obstetrics and Gynecology - [place] Comment on above: Encounter for survei llance of contraceptive pills Start: 03-14-2024 End: 03-14-2024 ambulatory NATALIYA GOMEZ [facility] Start: 02-28-2024 End: 02-28-2024 ambulatory MEGANLIZBETH MASON [facility] Start: 02-28-2024 End: 02-28-2024 Patient encounter procedure Megan Mason [employer]UCATION TEACHER - SMASHER Work Phone: [facility] Comment on above: Intractable chronic migraine without aura and without status migrainosus (Primary Dx) Start: 02-01-2024 End: 02-01-2024 Refill Megan Mason [employer]UC[employer] TE[employer]ER - SMASHER Work Phone: [facility] Clinical Communication Start: 01-30-2024 End: 01-31-2024 Telephone encounter Megan Mason [employer]UCATION TEACHER - SMASHER Work Phone: [facility] Comment on above: Reschedule Start: 01-11-2024 End: 02-16-2024 Telephone encounter Clare Maurice [facility] Comment on above: Other (Botox Deliver y RX [facility]) Start: 01-04-2024 End: 01-05-2024 Refill Drea Preciado MD Work Phone: [facility] Comment on above: Encounter for survei llance of contraceptive pills Start: 01-01-2024 End: 01-01-2024 Telephone encounter Valeri Kwok MD Work Phone: [facility] Obstetrics & Gynecology Comment on above: Results Start: 12-13-2023 End: 12-13-2023 Patient encounter procedure Valeri Kwok MD Work Phone: [facility] Work Phone: Start: 12-13-2023 End: 12-13-2023 Periodic preventive med est patient 18-39 yrs Valeri Kwok MD Work Phone: [facility] Comment on above: Well woman exam with routine gynecological exam (Primary Dx); Dysuria; Cervical cancer screening; Vaginal itching; Stress incontinence of urine Start: 11-19-2023 Refill Drea Soto Work Phone: [facility] Comment on above: Encounter for survei llance of contraceptive pills Start: 10-31-2023 End: 10-31-2023 Patient encounter procedure Megan Mason [employer]UC[employer] TE[employer]ER - SMASHER Work Phone: [facility] Comment on above: Intractable chronic migraine without aura and without status migrainosus (Primary Dx) Start: 10-17-2023 ambulatory Princess Rios RN [facility] C linical Communication Start: 10-17-2023 Patient encounter procedure Princess Rios RN [facility] Clinical Communication Start: 10-05-2023 Refill Megan salazar [employer]UC[employer] TEACHER - SMASHER Work Phone: [facility] Clinical Communication Start: 09-11-2023 Refill Drea Soto Work Phone: [facility] Comment on above: Encounter for survei llance of contraceptive pills Start: 08-25-2023 Telephone encounter Megan Bergman [employer]UCATION TEACHER - SMASHER Work Phone: [facility] Comment on above: Botulinum Toxin Inje ction Start: 08-17-2023 End: 08-17-2023 Office outpatient visit 15 minutes Megan Mason [employer]UC[employer] TEACHER - SMASHER Work Phone: [facility] Comment on above: Intractable chronic migraine without aura and without status migrainosus (Primary Dx) Start: 07-27-2023 End: 07-27-2023 ambulatory [facility] Work Phone: Start: 07-27-2023 End: 07-27-2023 Patient encounter procedure [facility]-Radiology, [place] Work Phone: Start: 06-29-2023 Telephone encounter Megan Bergman [employer]UC[employer] TEACHER - SMASHER Work Phone: [facility] Comment on above: Results Start: 06-21-2023 End: 06-21-2023 Patient encounter procedure Megan Mason [employer]UCATION TEACHER - SMASHER Work Phone: [facility] Comment on above: Intractable chronic migraine without aura and without status migrainosus (Primary Dx) Start: 05-23-2023 End: 05-23-2023 Subsequent hospital visit by physician Megan Mason APRN - SMASHER Work Phone: [facility] MRI Comment on above: Intractable chronic migraine without aura and without status migrainosus Start: 05-15-2023 Telephone encounter Megan Bergman [employer]UCATION TEACHER - SMASHER Work Phone: [facility] Start: 05-12-2023 Refill Margret Whitt [facility] Neuroscience Start: 05-11-2023 End: 05-11-2023 Office outpatient visit 25 minutes Megan Mason [employer]UCATION TEACHER - SMASHER Work Phone: [facility] Comment on above: Intractable chronic migraine without aura and without status migrainosus (Primary Dx) Start: 04-14-2023 End: 04-14-2023 ambulatory [facility] Work Phone: Start: 04-14-2023 End: 04-14-2023 Patient encounter procedure [facility]-Radiology, [facility] Work Phone: Start: 04-11-2023 End: 04-11-2023 Emergency department patient visit REEDMARKEL WANGTamera RODRIGUEZ Facility:[facility] Start: 04-11-2023 End: 04-11-2023 [facility] Start: 03-16-2023 Refill Megan salazar [employer]UCATION TEACHER - SMASHER Work Phone: [facility] Start: 02-18-2023 End: 02-18-2023 Emergency department patient visit DR MONTANA JUSTICE MD Facility:[facility] Start: 02-18-2023 End: 02-18-2023 Emergency department patient visit DR MONTANA JUSTICE MD [facility] Start: 12-19-2022 Telephone encounter Megan Bergman [employer]UCATION TEACHER - SMASHER Work Phone: [facility] Comment on above: Advice Only Start: 12-18-2022 End: 12-18-2022 Emergency department patient visit HELGA PHELPS MD Facility:[facility] Start: 12-18-2022 End: 12-18-2022 Emergency department patient visit HELGA PHELPS MD [facility] Start: 12-15-2022 Telephone encounter Megan Bergman [employer]UCATION TEACHER - SMASHER Work Phone: [facility] Comment on above: Discuss Medications Start: 10-06-2022 Telephone encounter Isabella BREAUX [facility] Clinical Communication Comment on above: pt returning call. O ffice called to change depo appt locatio (pt returning call. Office called to change depo appt location) Start: 10-06-2022 End: 10-06-2022 Patient encounter procedure [facility]stetrics [facility] Gyne[facility] Comment on above: Encounter for survei llance of injectable contraceptive Start: 10-06-2022 End: 10-06-2022 Office outpatient new 45 minutes Perry Mckeon MD Work Phone: [facility] Comment on above: Intractable chronic migraine without aura and without status migrainosus (Primary Dx); Medication overuse headache Start: 04-14-2022 End: 04-14-2022 Emergency department patient visit AUBREY CASTILLO DO [facility] Start: 01-12-2022 End: 01-12-2022 Emergency department patient visit DR CELESTE COURTNEY MD [facility] Start: 12-30-2021 End: 12-30-2021 Emergency department patient visit MAGNUS OH MD [facility] Start: 10-12-2021 End: 10-12-2021 Emergency department patient visit Marcus Carrera MD Work Phone: [facility] Comment on above: 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 Start: 09-04-2018 End: 09-04-2018 Patient encounter procedure CELESTE SAMSON Facility:[facility] Start: 08-21-2018 Patient encounter procedure CELESTE SAMSON Facility:[facility] Start: 08-14-2018 Patient encounter procedure CELESTE SAMSON Facility:[facility] Start: 07-31-2018 End: 07-31-2018 Patient encounter procedure CELESTE SAMSON Facility:[facility] Start: 07-17-2018 End: 07-17-2018 Patient encounter procedure CELESTE SAMSON Facility:[facility] Start: 07-05-2018 Patient encounter procedure CELESTE SAMSON Facility:[facility] Procedures Date Procedure Procedure Detail Performing Clinician Start: 01-15-2025 Radionuclide gastric emptying study Nataliya Gomez MD Work Phone: Start: 12-16-2024 Esophagogastroduodenoscopy Nataliya Soto Work Phone: Start: 11-26-2024 Computed tomography of abdomen and pelvis with contrast Nataliya Gomez MD Work Phone: Start: 11-15-2024 Ultrasound elastography of liver Nataliya Gomez MD Work Phone: Start: 11-08-2024 Vitamin D, 25-hydroxy measurement Nataliya Gomez MD Work Phone: Comment on above: Vitamin D StatusDeficiency: <20 ng/mL (5 0nmol/L)Insufficiency: 20-30 ng/mL (50-75 nmol/L)Sufficiency: 30-100 ng/mL (75-250 nmol/L)Toxicity: >100 ng/mL (>250 nmol/L) Start: 11-07-2024 Follow-up visit Follow-up MEGAN MASON Start: 11-02-2024 MRI of lumbar spine Nataliya Gomez MD Work Phone: Start: 10-24-2024 Albumin/Globulin ratio Nataliya Gomez MD Work Phone: Start: 10-24-2024 Antibody measurement Nataliya Gomez MD Work Phone: Comment on above: *Additional results available. Contact l aboratory/see report*The atypical pANCA pattern has been observed in asignificant percentage of patients with ulcerative colitis,primary sclerosing cholangitis and autoimmune hepatitis. Start: 10-24-2024 Antibody to centromere measurement Gustavo Gomez MD Work Phone: Comment on above: Test not performed Previous reported re sult: TNP AIEdited by: INFCE on 10/30/24:0908 AMENDED REPORT 10/30/24 0908 ANTI-CENT B previously reported as: Test not performed Start: 10-24-2024 Antibody to extractable nuclear antigen measurement Nataliya Gomez MD Work Phone: Comment on above: Test not performed Previous reported re sult: TNP AIEdited by: INFCE on 10/30/24:0908 AMENDED REPORT 10/30/24 09 BARRAGAN Ab previously reported as: Test not performed Start: 10-24-2024 Antibody to MARIUM-1 measurement Nataliya Gomez MD Work Phone: Comment on above: Test not performed Previous reported re sult: TNP AIEdited by: INFCE on 10/30/24:0908 AMENDED REPORT 10/30/24 09 ANTI-MARIUM previously reported as: Test not performed Start: 10-24-2024 Antibody to lupus La protein measurement Nataliya Gomez MD Work Phone: Start: 10-24-2024 Antibody to SS-A measurement Nataliya Gomez MD Work Phone: Start: 10-24-2024 Autoantibody measurement Nataliya Gomez MD Work Phone: Comment on above: Test not performed Previous reported re sult: TNP AIEdited by: INFCE on 10/30/24:0908 AMENDED REPORT 10/30/24 09 ANTICHROMATIN previously reported as: Test not performed Start: 10-24-2024 Endomysial antibody IgA level Nataliya sneed MD Work Phone: Start: 10-24-2024 Hepatitis A virus antibody, IgM type Nataliya Gomez MD Work Phone: Comment on above: A negative anti-HAV IgM result suggests no recent orcurrent HAV infection. Start: 10-24-2024 Hepatitis B core antibody measurement, IgM type Nataliya Gomez MD Work Phone: Start: 10-24-2024 Hepatitis C antibody measurement Nataliya Gomez MD Work Phone: Start: 10-24-2024 Immunoglobulin M measurement Nataliya Gomez MD Work Phone: Start: 10-24-2024 Measurement of fungal antibody Nataliya walker MD Work Phone: Comment on above: Negative: <45 Equivocal: 45-50 Positive: >50 Start: 10-24-2024 [employer] antibody measurement Nataliya Gomez MD Work Phone: Comment on above: Test not performed Previous reported re sult: TNP AIEdited by: DENZEL on 10/30/24:0908 AMENDED REPORT 10/30/24 0908 [employer] Ab previously reported as: Test not performed Start: 10-24-2024 Scallop JORGE Gomez MD Work Phone: Start: 10-24-2024 Serum inorganic phosphate measurement Nataliya Gomez MD Work Phone: Start: 10-24-2024 Sesame seed JORGE Gomez MD Work Phone: Comment on above: Performed at: [facility] [employer] [place] [id number] [place], [place] [id number] Director: Fortunato Santiago PhD, Phone: [phone] at: [facility] [address] [id number] Director: Dia Marquez MD, Phone: [phone] Start: 10-24-2024 Shrimp JORGE Gomez MD Work Phone: Start: 10-24-2024 Targeted analysis for gene mutation Nataliya Gomez MD Work Phone: Comment on above: Result: NEGATIVE for the JAK2 [id number] muta tion.Interpretation: The G to T nucleotide change encoding [id number] mutation was not detected. This result does [...] with these disorders. Start: 10-23-2024 Urnls dip stick/tablet reagent auto microscopy Nataliya Gomez MD Work Phone: Start: 10-23-2024 Bacteria identification test Nataliya Gomez MD Work Phone: Start: 10-23-2024 End: 10-23-2024 Polymerase chain reaction analysis Gustavo Gomez MD Work Phone: Start: 10-23-2024 Streptococcus pyogenes rRNA assay Nataliya Gomez MD Work Phone: Start: 10-23-2024 Trichomonas vaginalis detection Nataliya lake MD Work Phone: Start: 10-03-2024 Bacteria identification test Nataliya Gomez MD Work Phone: Start: 08-19-2024 X-ray of lumbar spine, two or three views Nataliya Gomez MD Work Phone: Start: 12-13-2023 Culture bacterial quanttative colony count urine Valeri Kwok MD Work Phone: Start: 12-13-2023 Urnls dip stick/tablet rgnt non-auto w/o micrscp Valeri Kwok MD Work Phone: Start: 12-13-2023 Microscopic observation [Identifier] in Cervix by Cyto stain Valeri Kwok MD Work Phone: Start: 07-27-2023 X-ray of lumbosacral spine Start: 04-14-2023 Radiography of esophagus Start: 06-01-2020 Endoscopy - Upper GI Lacey Tello Start: 05-14-2020 Blood count complete auto&auto difrntl wbc Lacey Tello Start: 05-14-2020 C-reactive protein Lacey Tello Start: 05-14-2020 CELIAC DISEASE SEROLOGY PANEL Lacey Cisnerosashley sousa Start: 05-14-2020 Comprehensive metabolic 2000 panel Lacey Tello Start: 05-14-2020 TSH WITH REFLEX TO FREE T4 IF ABNORMAL Lacey Javed Start: 05-14-2020 [...] for Adults (1 - 1-dose 75+ series) [facility] Start: 2051 RSV Immunization aged 60 or older (1 - 1-dose 60+ series) RSV Immunization aged 60 or older (1 - 1-dose 60+ series) [facility] Start: 08-10-2041 Zoster Vaccines (1 of 2) Zoster Vaccines (1 of 2) [facility] Start: 12-12-2026 Screening for malignant neoplasm of cervix [facility] Start: 04-25-2025 End: 04-25-2025 Telemedicine consultation with patient 04/25/2025 11:00 AM EST Telemedicine [facility] [address] [facility] [address] [place] [address] Megan Mason, ANTWAN - SMASHER [address] [place] [address] [facility] Start: 02-07-2025 X-ray of lumbosacral spine L/S Spine Bending Flex/Ext [facility] Start: 02-07-2025 XR Spine Lumbar and Sacrum Views [facility] Start: 02-03-2025 Influenza vaccination [facility] Start: 01-22-2025 End: 01-22-2025 Patient encounter procedure 01/22/2025 12:00 PM EDT Office Visit [facility] Ob[facility] Gyne[facility] [address] [place] [id number] Valeri Kwok MD [address] [place] [address] [facility] Obstetrics and Gynecology [facility] Start: 01-22-2025 End: 01-22-2025 Telemedicine consultation with patient 01/22/2025 12:00 PM EDT Telemedicine [facility] Ob[facility]s [facility] Gynecology [address] [place] [phone] Valeri Kwok MD [address] [place] [address] [facility] Gynecology [facility] Start: 01-17-2025 End: 01-17-2025 Patient encounter procedure 01/17/2025 12:00 PM EDT Office Visit [address] [phone] [facility] [address] [place] [address] [facility] Start: 12-24-2024 End: 12-24-2025 CBC W Auto Differential panel - Blood CBC and Auto Differential Lab Routine Oral thrush Expected: 12/24/2024 (Approximate), Expires: 12/24/2025 [facility] Service Area Work Phone: Comment on above: Expected: 12/24/2024 (Approximate), Expi res: 12/24/2025 Start: 12-24-2024 End: 12-24-2024 Telemedicine consultation with patient [facility] Start: 12-16-2024 Egd transoral biopsy single/multiple EGD BIOPSY SINGLE/MULTIPLE [facility] Start: 12-16-2024 Patient discharge [facility] Start: 12-13-2024 Yearly Adult Physical Yearly Adult Physical [facility] Start: 11-07-2024 End: 11-07-2024 Patient encounter procedure [facility] Start: 10-24-2024 Acute hepatitis 2000 panel - Serum [facility] Start: 10-24-2024 Catecholamines [Moles/volume] in Plasma [facility] Start: 10-24-2024 Celiac disease screen [facility] Start: 10-24-2024 Chromogranin A measurement [facility] Start: 10-24-2024 Erythropoietin (EPO) [Units/volume] in Serum or Plasma [facility] Start: 10-24-2024 Gastrin [Mass/volume] in Serum or Plasma [facility] Start: 10-24-2024 Immunoglobulin measurement [facility] Start: 10-24-2024 Serum immunofixation [facility] Start: 10-24-2024 [facility] Start: 10-23-2024 [facility] Start: 10-23-2024 Polymerase chain reaction analysis [facility] Start: 10-23-2024 Chlamydia/Neisseria (PCR) Chlamydia/Neisseria (PCR) [facility] Start: 10-23-2024 Throat culture Throat Culture [facility] Start: 10-16-2024 End: 10-16-2024 Patient encounter procedure 10/16/2024 12:00 PM EDT Office Visit [facility] Obstetrics [facility]cology [place] [address] [place] [address] Valeri Kwok MD [address] [place] [id number] [facility] Obstetrics and Gynecology - [place] Start: 08-22-2024 End: 08-22-2024 Patient encounter procedure 08/22/2024 11:30 AM EDT Office Visit [facility] [address] [place] [phone] [facility] [facility] Obstetrics and Gynecology - [place] Start: 08-15-2024 End: 08-15-2024 Patient encounter procedure 08/15/2024 2:00 PM EDT Procedure Visit [facility] [address] [place] [address] Megan Mason APRN - SMASHER [address] [place] [address] [facility] Start: 06-06-2024 End: 06-06-2024 Patient encounter procedure 06/06/2024 2:00 PM EST Office Visit [facility] Obstetrics and Gynecology [facility] [address] [place] [phone] [facility] Obstetrics and Gynecology [facility] Start: 06-05-2024 Medicare Advantage Annual Wellness Visit Medicare Advantage Annual Wellness Visit [facility] Start: 05-22-2024 End: 05-22-2024 Patient encounter procedure 05/22/2024 1:30 PM EST Procedure Visit [facility] [address] [place] [address] Megan Mason APRN - SMASHER [address] [place] [address] [facility] Start: 03-14-2024 End: 03-14-2024 Patient [address] [facility] Start: 02-28-2024 End: 02-28-2024 Patient encounter procedure [facility] Start: 02-04-2024 COVID-19 Vaccine ( season) COVID-19 Vaccine ( season) [facility] Start: 02-04-2024 COVID-19 Vaccine ( season) COVID-19 Vaccine ( season) [facility] Start: 02-04-2024 Influenza vaccination [facility] Start: 01-25-2024 End: 01-25-2024 Patient encounter procedure 01/25/2024 1:00 PM EDT Procedure Visit [facility] [address] [facility] [address] [place] [address] Megan Mason APRN - SMASHER [address] [place] [address] [facility] Start: 01-23-2024 End: 01-23-2024 Patient encounter procedure 01/23/2024 1:00 PM EDT Procedure Visit [facility] [address] [facility] [address] [place] [address] Megan Mason APRN - SMASHER [address] [place] [address] [facility] Start: 01-16-2024 End: 01-16-2024 ambulatory 01/16/2024 2:15 PM EDT Evaluation [facility] at [address] [place] [phone] Valeri Kwok MD [address] [place] [address] Shelly Mcguire, PT [facility] Therapy at [facility] Start: 12-21-2023 End: 12-21-2023 Patient encounter procedure 12/21/2023 2:00 PM EDT Office Visit [facility] [address] [place] [phone] [facility] Start: 12-06-2023 End: 12-06-2023 Patient encounter procedure 12/06/2023 1:00 PM EDT Office Visit [facility] [address] [place] [address] [facility] Start: 11-22-2023 End: 11-22-2023 Patient encounter procedure 11/22/2023 1:00 PM EDT Office Visit [facility] [address] [place] [phone] Valeri Kwok MD [address] [place] [address] [facility] Start: 10-31-2023 End: 10-31-2023 Patient encounter procedure 10/31/2023 1:00 PM EDT Procedure Visit [facility] [address] [facility] [address] [place] [phone] Megan Mason APRN - SMASHER [address] [facility] [address] [place] [address] [facility] Start: 10-24-2023 End: 10-24-2023 Patient encounter procedure 10/24/2023 8:30 AM EDT Procedure Visit [facility] [address] [facility] [address] [place] [phone] Megan Mason APRN - SMASHER [address] [facility] [address] [place] [address] [facility] Start: 09-20-2023 End: 09-20-2023 Patient encounter procedure 09/20/2023 1:00 PM EDT Office Visit [facility] [address] [place] [phone] [facility] Start: 09-14-2023 End: 09-14-2023 Patient encounter procedure 09/14/2023 2:00 PM EDT Procedure Visit [facility] [address] [facility] [address] [place] [phone] Megan Mason APRN - SMASHER [address] [facility] [address] [place] [address] [facility] Start: 09-13-2023 End: 09-13-2023 Patient encounter procedure 09/13/2023 1:00 PM EDT Office Visit [facility] [address] [place] [phone] [facility] Start: 08-08-2023 End: 08-08-2023 Patient encounter procedure 08/08/2023 2:00 PM EST Office Visit [facility] [address] [place] [phone] Megan Mason APRN - SMASHER [address] [place] [address] [facility] Start: 06-27-2023 End: 06-27-2023 Patient encounter procedure 06/27/2023 1:00 PM EST Office Visit [facility] [address] [place] [phone] [facility] Start: 06-21-2023 End: 06-21-2023 Patient encounter procedure 06/21/2023 12:30 PM EST Procedure Visit [facility] [address] [place] [phone] Megan Mason APRN - SMASHER [address] [place] [address] [facility] Start: 06-05-2023 Medicare Advantage Annual Wellness Visit Medicare Advantage Annual Wellness Visit [facility] Start: 05-24-2023 End: 05-24-2023 Patient encounter procedure 05/24/2023 2:30 PM EST Procedure Visit [facility] [address] [place] [phone] Megan Mason APRN - SMASHER [address] [place] [address] [facility] Start: 05-23-2023 End: 05-23-2023 Patient encounter procedure 05/23/2023 2:30 PM EST Appointment [facility] MRI [address] [place] [phone] Megan Mason APRN - CNP [address] [place] [address] [facility] MRI Start: 05-11-2023 End: 05-11-2024 MR Brain WO and W contrast IV MR brain w and wo contrast Imaging Routine Intractable chronic migraine without aura and without status migrainosus Expected: 05/11/2023, Expires: 05/11/2024 [facility] Work Phone: Comment on above: Expected: 05/11/2023, Expires: Start: 04-11-2023 End: 04-11-2023 Patient encounter procedure 04/11/2023 11:00 AM EST Office Visit [facility] [address] [place] [phone] [facility] Start: 02-15-2023 End: 02-15-2023 Patient encounter procedure 02/15/2023 10:30 AM EDT Office Visit [facility] [address] [place] [phone] Megan Mason APRN - CNP [address] [place] [address] [facility] Start: 02-03-2023 COVID-19 Vaccine ( season) COVID-19 Vaccine ( season) [facility] Start: 02-03-2023 Influenza vaccination [facility] Start: 12-22-2022 End: 12-22-2022 Patient encounter procedure [facility] Start: 11-11-2022 End: 11-11-2022 Patient encounter procedure 11/11/2022 Office Visit Obstetrics and Gynecology Claudia Hall MD [address] [place] [place] [place] [address] [facility] Start: 11-11-2022 End: 11-11-2022 Patient encounter procedure 11/11/2022 Office Visit Neurology Megan Mason, [employer]UC[employer]ER - SMASHER [address] [facility] [address] [place] [address] [facility] Start: 02-03-2022 Influenza vaccination Flu vaccine (Season Ended) [facility] Start: 12-29-2021 End: 12-29-2021 Patient encounter procedure 12/29/2021 Office Visit Obstetrics and Gynecology Valeri Kwok MD [address] [place] [address] [facility] Start: 08-10-2021 Screening for malignant neoplasm of cervix [facility] Start: 09-11-2017 DTaP/Tdap/Td vaccine (5 - Td or Tdap) DTaP/Tdap/Td vaccine (5 - Td or Tdap) [facility] Start: 09-11-2017 DTaP/Tdap/Td Vaccines (5 - Td or Tdap) DTaP/Tdap/Td Vaccines (5 - Td or Tdap) [facility] Start: 09-11-2017 DTaP/Tdap/Td Vaccines (8 - Td or Tdap) DTaP/Tdap/Td Vaccines (8 - Td or Tdap) [facility] Start: 09-11-2017 DTaP/Tdap/Td Vaccines (9 - Td or Tdap) DTaP/Tdap/Td Vaccines (9 - Td or Tdap) [facility] Start: 05-18-2017 Pneumococcal 0-64 years Vaccine (2 - PCV) Pneumococcal 0-64 years Vaccine (2 - PCV) [facility] Start: 05-18-2017 Pneumococcal Vaccine: Pediatrics (0 to 5 Years) and At-Risk Patients (6 to 49 Years) (2 of 2 - PCV) Pneumococcal Vaccine: Pediatrics (0 to 5 Years) and At-Risk Patients (6 to 49 Years) (2 of 2 - PCV) [facility] Start: 05-18-2017 Pneumococcal Vaccine: Pediatrics (0 to 5 Years) and At-Risk Patients (6 to 64 Years) (2 - PCV) Pneumococcal Vaccine: Pediatrics (0 to 5 Years) and At-Risk Patients (6 to 64 Years) (2 - PCV) [facility] Start: 05-18-2017 Pneumococcal Vaccine: Pediatrics (0 to 5 Years) and At-Risk Patients (6 to 64 Years) (2 of 2 - PCV) Pneumococcal Vaccine: Pediatrics (0 to 5 Years) and At-Risk Patients (6 to 64 Years) (2 of 2 - PCV) [facility] Start: 05-18-2017 Pneumococcal Vaccine: Pediatrics and At-Risk Adult Patients (2 of 2 - PCV) Pneumococcal Vaccine: Pediatrics and At-Risk Adult Patients (2 of 2 - PCV) [facility] Start: 08-10-2012 Screening for malignant neoplasm of cervix [facility] Start: 09-02-2010 Hepatitis B vaccine (2 of 3 - 3-dose primary series) Hepatitis B vaccine (2 of 3 - 3-dose primary series) [facility] Start: 09-02-2010 Hepatitis B Vaccines (2 of 3 - 3-dose series) Hepatitis B Vaccines (2 of 3 - 3-dose series) [facility] Start: 08-10-2009 Diabetes mellitus screening Diabetes Screening [facility] Start: 08-10-2009 Hepatitis C screening [facility] Start: 05-16-2008 Varicella vaccination [facility] Start: 08-10-2006 HIV screening HIV screen [facility] Start: 08-10-2004 Varicella vaccination Varicella Vaccines (1 of 2 - 13+ 2-dose series) [facility] Start: 2003 Depression Monitoring Depression Monitoring [facility] Start: 2003 Depression Screen Depression Screen [facility] Start: 2003 Depresssion Monitoring Depresssion Monitoring [facility] Start: 08-10-1996 COVID-19 Vaccine (#1) COVID-19 Vaccine (#1) [facility] Start: 08-10-1996 COVID-19 Vaccine (1) COVID-19 Vaccine (1) [facility] Start: 08-10-1992 Varicella vaccine (1 of 2 - 2-dose childhood series) Varicella vaccine (1 of 2 - 2-dose childhood series) [facility] Start: 02-11-1992 COVID-19 Vaccine (#1) COVID-19 Vaccine (#1) [facility] Start: 1991 HIV screening HIV Screening [facility] Start: 1991 Lipid panel Lipid Panel [facility] Start: 1991 Medicare Advantage Annual Wellness Visit (AWV) Medicare Advantage Annual Wellness Visit (AWV) [facility] Start: 1991 Yearly Adult Physical Yearly Adult Physical [facility] Albumin [Moles/volum e] in Serum or Plasma [facility] Albumin/Globulin ratio [facility] Antibody to lupus La protein measurement [facility] Antibody to SS-A measurement [facility] Bacteria identified in Throat by Culture [facility] Chitobioside IgA Ab [Units/volume] in Serum or Plasma by Immunoassay [facility] Clam IgE Ab [Units/v olume] in Serum [facility] Codfish IgE Ab [Units/volume] in Serum [facility] Shelby IgE Ab [Units/v olume] in Serum [facility] Cow milk IgE Ab [Units/volume] in Serum [facility] Cytology Cervical or vaginal smear or scraping study Pap Smear Pathology and Cytology Routine Well woman exam with routine gynecological exam Cervical cancer screening 12/13/2023 2:23 PM EDT [facility] Work Phone: DNA double strand Ab [Units/volume] in Serum [facility] DOPamine [Mass/volum e] in Serum or Plasma [facility] Egg white [facility] Electrophoresis: [id number] [facility] Electrophoresis: adarsh ma globulin [facility] EPINEPHrine [Mass/vo lume] in Plasma [facility] Globulin measurement [facility] Hepatitis A virus Ig M Ab [Presence] in Serum [facility] Hepatitis B core ant ibody measurement, IgM type [facility] Hepatitis B surface antigen measurement [facility] Hepatitis C antibody measurement [facility] IgA [Mass/volume] in Serum or Plasma [facility] IgE [Units/volume] i n Serum or Plasma [facility] IgG [Mass/volume] in Serum or Plasma [facility] IgM [Mass/volume] in Serum or Plasma [facility] JAK2 gene p.[id number] e [Presence] in Blood or Tissue by Molecular genetics method [facility] Laboratory data interpretation [facility] Laminaribioside IgG Ab [Units/volume] in Serum or Plasma by Immunoassay [facility] Liver stiffness by US.transient elastography [facility] Mannobioside IgG Ab [Units/volume] in Serum or Plasma by Immunoassay [facility] Measurement of funga l antibody [facility] End: 05-23-2023 MR Brain WO and [facility] Work [facility]: Comment on above: Once for 1 Occurrences starting 05/23/20 23 until 05/23/2023 Neutrophil cytoplasm ic Ab.classic [Units/volume] in Serum [facility] Neutrophil cytoplasm ic Ab.perinuclear.atypical [Titer] in Serum by Immunofluorescence [facility] OUTSIDE PROCEDURE SCAN OUTSIDE P ROCEDURE SCAN Procedures Ordered: 05/22/2023 [facility] Comment on above: Ordered: 05/22/2023 P-ANCA measurement [facility] Patient Education Preventing Vag initis ED Pharyngitis, Report Pending [facility] Work Phone: Patient referral [facility] Work Phone: Peanut IgE Ab [Units/volume] in Serum [facility] Plasma norepinephrin e measurement [facility] Protein electrophore sis panel - Serum or Plasma [facility] Radionuclide gastric emptying study [facility] Radionuclide study o f abdomen [facility] Scallop [facility] Sesame seed [facility] Shrimp IgE Ab [Units/volume] in Serum [facility] Soybean IgE Ab [Units/volume] in Serum [facility] Tissue transglutamin ase IgA Ab [Units/volume] in Serum [facility] Tyonek [facility] Wheat IgE Ab [Units/ volume] in Serum [facility] Immunizations Immunization Date Immunization Notes Care Provider Rossana stovall 05-18-2016 pneumococcal polysaccharide vaccine, [address] BEBA HUMPHREYS DO [facility] 05-18-2016 influenza virus vacc ine, unspecified formulation [facility] 06-05-2011 tetanus and diphther ia toxoids, adsorbed, preservative free, for adult use (5 Lf of tetanus toxoid and 2 Lf of diphtheria toxoid) DR BEBA HUMPHREYS DO [facility] 08-05-2010 hepatitis B vaccine, unspecified formulation DR BEBA HUMPHREYS DO [facility] 04-18-[address] BEBA HUMPHREYS DO [facility] 12-13-[address] BEBA HUMPHREYS DO [facility] 09-12-[address] BEBA HUMPHREYS DO [facility] 09-12-2007 meningococcal polysaccharide (groups A, C, Y and W-135) diphtheria toxoid conjugate vaccine (MCV4P) DR BEBA HUMPHREYS DO [facility] 09-12-2007 tetanus and diphther ia toxoids, adsorbed, preservative free, for adult use (5 Lf of tetanus toxoid and 2 Lf of diphtheria toxoid) DR BEBA HUMPHREYS DO [facility] 02-20-2004 diphtheria, tetanus toxoids and acellular pertussis vaccine DR BEBA HUMPHREYS DO [facility] 02-20-2004 measles/mumps/rubell a virus vaccine DR BEBA HUMPHREYS DO [facility] 02-20-[address], inactivated [address] BEBA HUMPHREYS DO [facility] 05-14-1993 diphtheria, tetanus toxoids and acellular pertussis vaccine DR BEBA HUMPHREYS DO [facility] 05-14-1993 diphtheria, tetanus toxoids and acellular pertussis vaccine, unspecified formulation DR BEBA HUMPHREYS DO [facility] 05-14-1993 measles/mumps/rubell a virus vaccine DR BEBA HUMPHREYS DO [facility] 05-14-1993 poliovirus vaccine, inactivated DR BEBA HUMPHREYS DO [facility] 09-28-1992 diphtheria, tetanus toxoids and acellular pertussis vaccine DR BEBA HUMPHREYS DO [facility] 06-25-1992 diphtheria, tetanus toxoids and acellular pertussis vaccine DR BEBA HUMPHREYS DO [facility] 06-25-1992 haemophilus influenz ae type b vaccine, PRP-T conjugate DR BEBA HUMPHREYS DO [facility] 06-05-[address], inactivated [address] BEBA HUMPHREYS DO [facility] 1991 diphtheria, tetanus toxoids and acellular pertussis vaccine DR BEBA HUMPHREYS DO [facility] 1991 poliovirus vaccine, inactivated DR BEBA HUMPHREYS DO [facility] Payers Date Payer Category Payer Self-pay [id number] 2023 [facility] MEDICAID ONLY [id number] 2022 Medicaid [id number] 2022 Private Health Insurance [id number] 2021 Medicare HMO [id number] 2021 Medicare [id number] .[id number] 2021 Dual Eligibility Medicare/Medicaid Organization [facility] [id number] 2021 Unknown [id number] 2021 Medicaid [id number] 2019 Medicare [id number] 1.13.680.2 .[id number] 1991 Unknown [id number] 2.16.840.1.736139.3.579.2 .278 1991 Unknown [id number] 2.16.840.1.118234.3.579.2 .278 1991 Unknown [id number] 2.16.840.1.222159.3.579.2 .278 1991 Unknown [id number] 2.16.840.1.741789.3.579.2 .278 1991 Unknown [id number] 2.16.840.1.557303.3.579.2 .278 1991 Unknown [id number] 2.16.840.1.507164.3.579.2 .278 1991 Unknown [id number] 2.16.840.1.487327.3.579.2 .278 1991 Unknown [id number] 2.16.840.1.482616.3.579.2 .627 1991 Unknown [id number] 2.16.840.1.684487.3.579.2 .627 1991 Unknown [id number] 2.16.840.1.894483.3.579.2 .627 1991 Unknown [id number] 2.16.840.1.373419.3.579.2 .627 1991 Unknown [id number] 2.16.840.1.071581.3.579.2 .627 1991 Unknown [id number] 2.840.1.718286.3.579.2 .1244 1991 Unknown [id number] 2.840.1.858504.3.579.2 .1244 Medicaid MEDICAID 0 [id number] Medicare [id number] Unknown [id number] Unknown [id number] 2.840.1.559950.3.579.2 .462 Unknown [id number] .0.1.846479.3.579.2 .462 Unknown [id number] 2.0.1.970460.3.579.2 .462 Unknown [id number] .0.1.983533.3.579.2 .462 Unknown [id number] .0.1.852901.3.579.2 .462 Unknown [id number] 2.0.1.405745.3.579.2 .462 Unknown [id number] .0.1.944175.3.579.2 .462 Unknown [id number] .0.1.218463.3.579.2 .462 Unknown [id number] .0.1.937680.3.579.2 .462 Unknown [id number] .0.1.407916.3.579.2 .462 Unknown [id number] 2.840.1.787402.3.579.2 .462 Unknown [id number] 2.840.1.942092.3.579.2 .462 Unknown [id number] 2.840.1.900710.3.579.2 .462 Unknown [id number] 2.16.840.1.501320.3.579.2 .462 Unknown [id number] 2.16.840.1.476965.3.579.2 .462 Unknown [id number] 2.16.840.1.346463.3.579.2 .462 Unknown [id number] 2.16.840.1.589103.3.579.2 .462 Unknown [id number] 2.16.840.1.100769.3.579.2 .462 Unknown [id number] 2.16.840.1.122974.3.579.2 .462 Social History Date Type Detail Facility Start: 08-14-2018 End: 03-14-2025 Heavy tobacco smoker (finding) [facility] Start: 1990 Sex Assigned At Female A [facility] Start: 09-22-2018 End: 12-13-2024 Tobacco smoking status PAIS Smokes tobacco daily [facility] Work Phone: Start: 09-22-2018 End: 12-24-2024 Cigarettes smoked current (pack per day) - Reported 0.5 [facility] Work Phone: Start: 09-22-2018 End: 11-07-2024 Tobacco use and exposure Smokeless tobacco non-user [facility] Work Phone: Start: 10-12-2021 End: 12-24-2024 Alcohol intake Lifetime non-drinker (finding) [facility] Work Phone: Start: 09-29-2021 History SDOH Alcohol Frequency 1 [facility] Work Phone: Start: 09-29-2021 History SDOH Social Connections Phone 3 [facility] Work Phone: Start: 09-29-2021 History SDOH [employer] Membership 2 [facility] Work Phone: Start: 09-29-2021 History SDOH [facility] Living 7 [facility] Work Phone: Start: 10-02-2021 End: 01-24-2023 Exposure to SARS-CoV-2 (event) Not sure [facility] Work Phone: Start: 08-22-2011 History of tobacco use Cigarette Smoker [facility] Start: 12-15-2022 End: 12-24-2024 Tobacco use panel [facility] Start: 03-24-2022 Sexual orientation Heterosexual (fin michael) [facility] Start: 05-22-2020 Tobacco smoking status NHIS Unknown if ever smoked [facility] Start: 07-16-2019 Cigarettes [facility] Start: 11-28-2018 End: 01-03-2022 Sex Female (finding) [facility] Start: 1990 Sex assigned at Not on file [facility] Work Phone: Start: 04-29-2022 End: 03-14-2025 Sex Female [facility] NEGATED: Highlighted row - - [facility] Work Phone: NEGATED: Highlighted row Not [facility] Goals Date Patient Goal Desired Activity /State Functional Status Date Assessment Result Facility 03-14-2025 Functional Status Sensory Deficits None A [facility] 04-11-2023 Functional Status Standard Safet y ID band on, Call device within reach, Bed in low position, Wheels locked, Bedside Cart Locked, Safety level maintained [facility] 04-11-2023 Functional Status [facility] 02-18-2023 Functional Status Independent [facility] 02-18-2023 Functional Status ID band on [facility] 12-18-2022 Functional Status Independent [facility] 12-18-2022 Functional Status Awake [facility] 04-14-2022 Functional Status Up ad dorita [facility] 12-30-2021 Functional Status ID band on, Call device within reach, Bed in low position, Wheels locked, Visitor at bedside [facility] NEGATED: Highlighted row Functional performance Functional status health issues are not documented Disease [facility] Work Phone: Mental Status Date Assessment Result Facility 12-16-2024 Cognitive function Voice/Name [facility] Work Phone: 04-11-2023 Mental Status Oriented x 4 [facility] 02-18-2023 Mental Status Orientation Orie nted x 4 [facility] 02-18-2023 [facility] 12-18-[facility]22 Mental Status Orientation Orie nted x 4 [facility] 04-14-2022 Mental Status Orientation Orie nted x 4 [facility] 01-12-2022 Mental Status Oriented x 4 [facility] 12-30-2021 Mental Status Oriented x 4 [facility] NEGATED: Highlighted row Cognitive function [Interpretation] Cognitive status health issues are not documented Disease [facility] Gastroenterology-[facility] Work Phone: Clinical Notes 07-30-2020 to 01-15-2025 Telephone Encounter - Jenni Juarez - 12/31/2024 10:06 AM EDTTelephone Encounter - Jenni Juarez - 12/31/2024 10:06 AM EDTTelephone Encounter - Ibeth Melendrez - 12/31/2024 8:09 AM EDT Note Date & Type Note Facility 01-15-2025 Nuclear medicine Diagnostic study note [facility] Imaging Services [address] [place] [address] Gastric Emptying Study MR#: [id number] Acct: [id number] Name: CARLOS GIRON Rep #: [id number] : 1990 F 34 From: Corey Vitale MD PCP: Dr. Nataliya Gomez MD Status: REG CL I Study:Gastric Emptying Study Date of Exam: 01/15/25 Exam# [id number] Ordering Dr: Miriam Montalvo DO PROCEDURE: GASTRIC EMPTYING STUDY 01/15/2025 REASON FOR EXAM: GASTROPARESIS COMPARISON: None TECHNIQUE: The patient ingested a standard meal of oatmeal,, and water. There was no vomiting postprandially. Anterior and posterior planar images of the upper abdomen were obtained for 1 minute immediately following the meal at 1h, 2h and 4h if more than 10% of the activity persisted within the stomach. Regions of interest were drawn, and a geometric mean was used to calculate a sodo-xoksgzrp-tqwwd. RADIOPHARMACEUTICAL: Sulfur colloid DOSE 1.2mCi FINDINGS: Percent activity remaining in stomach: 1 hour 65 % (normal 37-90%) NM/Gastric Emptying Study IMPRESSION: Normal gastric emptying examination. Reading Location: [id number] CC: Dr. Nataliya Gomez MD; Moses Montalvo DO ~ End Packer: Signed [facility] 12-31-2024 Telephone encounter Note Message released to patient as written. Patient's further questions if applicable: N/a Were all questions from office addressed or relayed to the patient from encounter: Yes [facility] 12-31-2024 Miscellaneous Notes Message released to patient as written. Patient's further questions if applicable: N/a Were all questions from office addressed or relayed to the patient from encounter: Yes Lm for patient to call the office back, please relay providers message. The pt is incorrect. She must be seen in the office at least once a year. This could change depending on the need of care. Spoke to pt and let pt know that I will forward this message on to provider that they will be able to ok moving appointments to VV or not but pt does have to be seen in office at least once a year and pt states Christina said she doesn't need to be seen in office there is nothing wrong with her. Name of caller: Carlos Contact phone number: [phone] Relationship to Patient: patient Provider: Rosangela Mason Practice: Neurology Chief Complaint/Reason for Call: Patient called stating that from now on all her appointments will need to be Telehealth appointments due to her not being able to get rides. Please be advised. Best time of day caller can be reached: Any Patient advised that office/PCP has 24-48 business hours to return their call: N/A Change appointment VV Virtual is fine Name of Caller: Zhanna Contact Reason for Appointment: Patient called to schedule 4 month follow up. Scheduled for 04/25/25 and asking if appointment can be a virtual visit due to her living almost an hour away. Please call patient back to confirm. Office Name: Neurology Medication Refills need, if any: N/A Medication Name: N/A Lm for patient to call the office back, please schedule pt a 4 month follow up appointment with Christina. Thanks documented in this encounter [facility] 12-31-2024 Telephone encounter Note Lm for patient to call the office back, please relay providers message. [facility] 12-31-2024 Telephone encounter Note The pt is incorrect. She must be seen in the office at least once a year. This could change depending on the need of care. [facility] 12-31-2024 Telephone encounter Note Spoke to pt and let pt know that I will forward this message on to provider that they will be able to ok moving appointments to VV or not but pt does have to be seen in office at least once a year and pt states Christina said she doesn't need to be seen in office there is nothing wrong with her. [facility] 12-31-2024 Telephone encounter Note Name of caller: Carlos Contact phone number: [phone] Relationship to Patient: patient Provider: Rosangela Mason Practice: Neurology Chief Complaint/Reason for Call: Patient called stating that from now on all her appointments will need to be Telehealth appointments due to her not being able to get rides. Please be advised. Best time of day caller can be reached: Any Patient advised that office/PCP has 24-48 business hours to return their call: N/A [facility] 12-24-2024 Telephone encounter Note Change appointment VV [facility] 12-24-2024 Miscellaneous Notes Change appointment VV Virtual is fine Name of Caller: Zhanna Contact Reason for Appointment: Patient called to schedule 4 month follow up. Scheduled for 04/25/25 and asking if appointment can be a virtual visit due to her living almost an hour away. Please call patient back to confirm. Office Name: Neurology Medication Refills need, if any: N/A Medication Name: N/A Lm for patient to call the office back, please schedule pt a 4 month follow up appointment with Christina. Thanks documented in this encounter [facility] 12-24-2024 History of Presen t illness Narrative HPI 12/24/24 (telehealth visit) S/p clotrimazole pearls. 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 Recall Carlos Giron is a 34 y.o. female presenting [...] intake form, HPI and/or Past Medical History Assessment Oral thrush Throat discomfort Laryngopharyngeal reflux Plan 34-year-old female presenting for evaluation of throat discomfort. Exam notable for thrush along her dorsal tongue and diffuse papillitis. 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 The condition was reviewed and explained, nystatin course prescribed. LPR can also be contributing to her symptomatology. Takes omeprazole 40 mg daily. Dietary modifications for reflux control in addition to OTC Gaviscon use discussed. 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 RTC 6w [1] Past Medical History: Diagnosis Date Bipolar disorder, unspecified (Multi) Bipolar 1 disorder Fatigue GERD (gastroesophageal reflux disease) Migraine Obesity Personal history of other diseases of the digestive system History of gastritis Personal history of other diseases of the digestive system History of irritable bowel syndrome Personal history of other mental and behavioral disorders History of depression Personal history of other mental and behavioral disorders History of anxiety Personal history of other specified conditions History of chronic fatigue Sleep difficulties [2] Past Surgical History: Procedure Laterality Date OTHER SURGICAL HISTORY 05/14/2020 Appendectomy OTHER SURGICAL HISTORY 05/14/2020 Achilles tendon surgery OTHER SURGICAL HISTORY 05/14/2020 section [3] Current Outpatient Medications on File Prior to Visit Medication Sig Dispense Refill amphetamine-dextroamphetamine (Adderall) 12.5 mg tablet Take 2 tablets (25 mg) by mouth every 12 hours. diazePAM (Valium) 5 mg tablet take 1 tablet by mouth ONCE 15 MINUTES PRIOR TO MRI oxyBUTYnin XL (Ditropan-XL) 10 mg 24 hr tablet Take 1 tablet (10 mg) by mouth early in the morning.. prochlorperazine (Compazine) 5 mg tablet Take 1 tablet (5 mg) by mouth every 12 hours. promethazine (Phenergan) 12.5 mg tablet take 1 tablet by mouth every 8 hours if needed if needed for nausea tiZANidine (Zanaflex) 4 mg tablet take 1 tablet by mouth twice a day if needed for BACK PAIN Botox 200 unit injection [] clotrimazole (Mycelex) 10 mg sai Use 1 tablet (10 mg) in the mouth or throat 3 times daily (morning, midday, late afternoon) for 10 days. 30 Sai 0 medroxyPROGESTERone 150 mg/mL injection syringe OLANZapine (ZyPREXA) 5 mg tablet Take 1 tablet (5 mg) by mouth once daily at bedtime. oxyCODONE (Roxicodone) 5 mg immediate release tablet Take 1 tablet (5 mg) by mouth every 12 hours. predniSONE (Deltasone) 20 mg tablet Take 3 tablets (60 mg) by mouth early in the morning.. No current facility-administered medications on file prior to visit. [4] Allergies Allergen Reactions Codeine Hives Ibuprofen Hives Vicodin [Hydrocodone-Acetaminophen] GI Upset documented in this encounter [facility] Work Phone: 12-24-2024 Telephone encounter Note Virtual is fine [facility] 12-24-2024 Telephone encounter Note Name of Caller: Zhanna Contact Reason for Appointment: Patient called to schedule 4 month follow up. Scheduled for 04/25/25 and asking if appointment can be a virtual visit due to her living almost an hour away. Please call patient back to confirm. Office Name: Neurology Medication Refills need, if any: N/A Medication Name: N/A [facility] 12-24-2024 Telephone encounter Note Lm for patient to call the office back, please schedule pt a 4 month follow up appointment with Christina. Thanks [facility] 12-24-2024 History of Presen t illness Narrative Patient was identified and seen today via Telehealth by agreement and consent. I used the following Telehealth technology: Audio and video capabilities. Patient location: Patient Location: Home. This patient encounter is appropriate and reasonable under the circumstances: transportation issuesVisit type: Established Patient Reason for Visit: Follow-up and Migraine Assessment and Plan 1. Intractable chronic migraine without aura and without status migrainosus Subjective HPI: Failed TPX, Imitrex, Excedrin, Maxalt Given Ajovy and Aimovig approved. Aimovig caused worsening of migraines, Nurtec Began Botox 06/2023 Caused flu like sx for 3 days post injection-Body aches, loss of appetite, very tired and wants to sleep Switch to Qulipta Ubrelvy prn She reports the last headache she had was the end of August No side effects REVIEW OF SYSTEMS: Review of Systems Constitutional: Negative. HENT: Negative. Eyes: Negative. Respiratory: Negative. Cardiovascular: Negative. Gastrointestinal: Negative. Endocrine: Negative. Genitourinary: Negative. Musculoskeletal: Negative. Skin: Negative. Allergic/Immunologic: Negative. Neurological: Positive for headaches. Hematological: Negative. Psychiatric/Behavioral: Negative. Allergies[1] Current Medications[2] Medical History[3] Social History Tobacco Use Smoking status: Every Day Current packs/day: 1.50 Average packs/day: 1.2 packs/day for 28.3 years (35.0 ttl pk-yrs) Types: Cigarettes Start date: 08/22/2011 Smokeless tobacco: Never Substance Use Topics Alcohol use: Never Surgical History[4] Family History[5] Objective Vitals: There were no vitals taken for this visit. Neurologic: Mentation: Alert and oriented x 3 to person, place and time. Data Reviewed and Summarized DIAGNOSTIC TESTING CBC: [...] TSH VITAMIN B12: No results found for: [id number] No results found for: PHENYTOIN, PHENOBARB, VALPROATE, CBMZ No components found for: TOPIRA @RESULTINGLABINFO@ No results found for: LEVETIRACETA, FERRITIN, CRP, FRIEDA, ANCA No results found for: ADELE, IMMUNOGLOBUL, OLIGOBANDS No results found for: [id number], HEPCAB No results found for: CRP, ANATITER, ANCA FERRITIN: No results found for: FERRITIN ---- MR brain w and wo contrast Narrative: Patient Name: CARLOS GIRON : 1990 [id number] Exam Date/Time: 05/23/2023 15:13 Procedure: MR BRAIN [...] aura and without status migrainosus - Primary Continue Qulipta daily Ubrevly as needed Megan Mason APRN - ROBERT I spent [...] stated that they are currently in the [facility]. If the patient is a minor, permission has been obtained by the parent or guardian for the patient to receive medical care at this visit. I, ANTWAN Gonsalez CNP, furnish ongoing care related to Carlos Giron single, serious and complex condition(s) Migraine. [...] or shortness of breath, Disp: , Rfl: Atogepant (Qulipta) 60 MG tablet, Take 1 tablet by mouth daily., Disp: 90 tablet, Rfl: 3 Biotin w/ Vitamins C & E (HAIR SKIN & NAILS GUMMIES PO), Take by mouth., Disp: , Rfl: cholecalciferol (Vitamin D-3) 50 MCG (2000 UT) tablet, Take 50 mcg by mouth daily., Disp: , Rfl: clotrimazole (Mycelex) 10 MG sai, , Disp: , Rfl: drospirenone-ethinyl estradiol (Morena 28) 3-0.03 MG tablet, 1 tablet daily, skip placebos and start new pack, Disp: 56 tablet, Rfl: 6 hydrOXYzine pamoate (Vistaril) 50 MG capsule, take 1 capsule by mouth three times a day if needed for anxiety or sleep, Disp: , Rfl: hyoscyamine (Anaspaz,Levsin) 0.125 MG tablet, , Disp: , Rfl: lamoTRIgine (LaMICtal) 200 MG tablet, , Disp: , Rfl: Linzess 72 MCG capsule, , Disp: , Rfl: Multiple Vitamins-Minerals (ONE-A-DAY [...] mg by mouth Nightly., Disp: , Rfl: [3] Past Medical History: [...] Age of Onset ADD / ADHD Mother Carlos Anxiety disorder Mother Carlos Depression Mother Carlos Migraines Mother Carlos documented in this encounter [facility] 12-24-2024 Instructions ANTWAN Marsh CNP - 12/24/2024 1:00 PM EDT Continue Qulipta daily Ubrevly as needed documented in this encounter [facility] 12-16-2024 Consult note [facility] 12-16-2024 Procedure note [facility] 12-16-2024 Procedure note [facility] 12-16-2024 History and physi robert note [facility] 12-16-2024 Note [facility] Medical Records Department [address] [place] [address] History Physical Exam 12/16/24 0642 MR#: [id number] Acct: [id number] Name: CARLOS GIRON Rep #: [id number] : 1990 34 From: Moses Montalvo DO PCP: Dr. Nataliya Gomez MD Status:[facility] Location: [place] [address] HPI - General General Date of Admission: 12/16/24 Date of Service: 12/16/24 Chief Complaint: Nausea, vomiting and diarrhea HPI Narrative CARLOS GIRON, is a 34 F who presents for the evaluation of nausea, vomiting and occasional diarrhea. *BGI established 5.22.25 pt reports long history [...] take for the prep made her sick. [facility] Medical History ADHD Marijuana use Arthritis Fatty liver Easy bruising Leg cramps Migraine headache Gastric reflux Shortness of breath on exertion Smoker History of pain when walking History of echocardiogram IBS (irritable bowel syndrome) Bipolar disorder Low back pain Depression Anxiety Home Medications ???Medication ???Instructions ???Recorded ???Last Taken ???Type biotin 2,500 mcg chewable tablet 2,500 mcg PO DAILY 10/24/24 History dextroamphetamine-amphetamine 30 30 mg PO QDAY 10/24/24 12/15/24 Hi story mg tablet (Adderall) gabapentin 600 mg tablet 800 mg PO TID 10/24/24 12/16/24 Hi story lamotrigine 150 mg tablet 100 mg PO QHS 10/24/24 12/15/24 Hi story omeprazole 40 mg capsule,delayed 40 mg PO QDAY 10/24/24 12/16/24 Hi story release promethazine 12.5 mg tablet 12.5 mg PO Q6H PRN nausea and 10/04 07/30 Unknown History vomiting rifaximin 550 mg tablet (Xifaxan) 550 mg PO TID 10/24/24 12/15/24 H istory zolpidem 10 mg tablet (Ambien) 10 mg PO QHS 10/24/24 12/15/24 His tory prochlorperazine maleate 10 mg 10 mg PO Q8H PRN nausea and Unknown Rx tablet (Compazine) vomiting #30 tabs dicyclomine 20 mg tablet 20 mg PO TID #90 tabs 11/19/24 Rx prochlorperazine 25 mg rectal 25 mg IL BID PRN nausea and Unknown Rx suppository (Compazine) vomiting #12 ea albuterol sulfate 90 mcg/actuation 2 puff inhalation 4X/DAY PRN PRN 12/12/24 Unknown History aerosol inhaler shortness of breath or wheezing atogepant 60 mg tablet (Qulipta) 60 mg PO DAILY 12/12/24 12/16/24 H istory cholecalciferol (vitamin D3) 50 50 mcg PO DAILY 12/12/24 12/15/24 History mcg (2,000 unit) tablet (Vitamin D3) drospirenone 3 mg-ethinyl 1 tab PO DAILY 12/12/24 12/15/24 H istory estradiol 0.03 mg tablet (Zainab) oxybutynin chloride 10 mg 10 mg PO DAILY 12/12/24 12/16/24 H istory tablet,extended release 24 hr tizanidine 4 mg tablet 4 mg PO QHS 12/12/24 12/15/24 Hist ory Allergy/AdvReac Type Severity Reaction Status Date / Time ibuprofen AdvReac Intermediate Hives Verified 12/16/24 06:06 codeine AdvReac Upset Verified 12/16/24 06:06 Stomach hydrocodone bitartrate (From AdvReac Upset Verified 12/16/24 06:06 Vicodin) Stomach Surgical History History of History of appendectomy Hx of knee surgery Social History housing: apartment current occupational status: disabled Smoking Status: Current every day smoker tobacco type: cigarettes alcohol intake: never substance use type: marijuana what type of physical activity do you participate in: walking ROS Constitutional Constitutional: Denies fatigue, fever(s), poor appetite, weight gain or weight loss Gastrointestinal Gastrointestinal: Denies belching, bloating, change in bowel habits, change in stool character, chewing difficulty, coffee ground emesis, constipation, cramping, diarrhea, dyspepsia, dysphagia, early satiety, excessive flatus, fecal incontinence, heartburn, hematemesis, hematochezia, hemorrhoids, loose stools, melena, nausea, odynophagia, rectal bleeding, tenesmus, vomiting or weight changes Vital Signs Vital Signs Vital Signs: 12/16/24 06:08 12/16/24 06:08 12/16/24 06:23 Temperature 97.6 F L 97.6 F L Temperature Source Temporal Pulse Rate 80 80 Respiratory Rate 17 17 Respiratory Pattern Normal Blood Pressure 109/71 109/71 Blood Pressure Mean 83 Blood Pressure Source Monitor Blood Pressure Position Semi-Fowlers Blood Pressure Location Left Arm Pulse Ox 97 97 Oxygen Delivery Method Room Air Room Air Weight Weight: 235 lb 14.314 oz (more content not included)... [facility] 12-16-2024 Consult note [facility] 12-11-2024 Telephone encounter Note Noted [facility] 12-11-2024 Miscellaneous Notes Noted Name of caller: Carlos Contact phone number: [phone] Relationship to Patient: patient Provider: ANTWAN Marsh CNP Practice: [facility] [place] Chief Complaint/Reason for Call: Carlos states she would like to inform that Qulipta has helped with her headaches tremendously and has not had a headache since August 28. Please be advised. Best time of day caller can be reached: Any Patient advised that office/PCP has 24-48 business hours to return their call: Yes documented in this encounter [facility] 12-11-2024 Telephone encounter Note Name of caller: Carlos Contact phone number: [phone] Relationship to Patient: patient Provider: ANTWAN Marsh CNP Practice: [facility] [place] Chief Complaint/Reason for Call: Carlos states she would like to inform that Qulipta has helped with her headaches tremendously and has not had a headache since August 28. Please be advised. Best time of day caller can be reached: Any Patient advised that office/PCP has 24-48 business hours to return their call: Yes [facility] 11-27-2024 Radiology Diagnostic study note [facility] Imaging Services [address] [place] [address] Abdomen/Pelvis WITH Contrast MR#: [id number] Acct: [id number] Name: CARLOS GIRON Rep #: [id number] : 1990 F 34 From: Corey Vitale MD PCP: Dr. Nataliya Gomez MD Status: REG CL I Study:Abdomen/Pelvis WITH Contrast Date of Ex am: 11/26/24 Exam# [id number] Ordering Dr: Miriam Montalvo DO PROCEDURE: ABDOMEN/PELVIS [...] Fatty infiltration of the liver. Reading Location: [id number] CC: Dr. Nataliya Gomez MD; Moses Montalvo DO ~ End Packer: Signed [facility] 11-20-2024 History of Present illness Narrative ALEJANDRO Giron is a 34 y.o. female presenting [...] along her dorsal tongue and diffuse papillitis. 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 [facility] is pleased to meet your health care needs. We strive to deliver the highest quality and most value based care possible. Thank you for giving us the opportunity to serve you. documented in this encounter [facility] Work Phone: 11-15-2024 Radiology Diagnostic study note [facility] Imaging Services [address] [place] [address] ABD Limited w/ Elastography MR#: [id number] Acct: [id number] Name: CARLOS GIRON Rep #: [id number] : 1990 F 34 From: Corey Vitale MD PCP: Dr. Nataliya Gomez MD Status: REG CL I Study:ABD Limited w/ Elastography Date of Exa m: 11/15/24 Exam# [id number] Ordering Dr: Miriam Montalvo DO PROCEDURE: ABD LIMITED W/ ELASTOGRAPHY REASON FOR EXAM: ABDOMINAL PAIN COMPARISON: None. TECHNIQUE: Right upper quadrant abdominal ultrasound. [facility] ElastQ Imaging shear wave elastography for non-invasive [...] quadrant ascites. US/ABD Limited w/ Elastography IMPRESSION: Nopd-vm-mpvdodzv hepatic fibrosis. Fatty infiltration of the liver. [...] measurement may be in question. Reading Location: [id number] CC: Dr. Nataliya Gomez MD; Moses Friend, ~ End Packer: Signed [facility] 11-07-2024 History of Present illness Narrative Visit type: Established Patient Reason for Visit: Follow-up and Migraine Assessment and Plan 1. Intractable chronic migraine without aura and without status migrainosus Subjective HPI: Failed TPX, Imitrex, Excedrin, Maxalt Given Ajovy and Aimovig approved. Aimovig caused worsening of migraines, [facility] Began Botox 06/2023 She reports the Botox [...] TSH VITAMIN B12: No results found for: [id number] No results found for: PHENYTOIN, PHENOBARB, VALPROATE, CBMZ No components found for: TOPIRA @RESULTINGLABINFO@ No results found for: LEVETIRACETA, FERRITIN, CRP, FRIEDA, ANCA No results found for: ADELE, IMMUNOGLOBUL, OLIGOBANDS No results found for: [id number], HEPCAB No results found for: CRP, ANATITER, ANCA FERRITIN: No results found for: FERRITIN ---- MR brain w and wo contrast Narrative: Patient Name: CARLOS GIRON : 1990 Exam Date/Time: 05/23/2023 15:13 [...] needed ANTWAN Gonsalez CNP Electronically signed by @ALTA@ on @TDNR@ at @NOWNR@ I, ANTWAN Gonsalez CNP, furnish ongoing care related to Carlos Giron single, serious and complex condition(s) Migraine. [...] , Rfl: cholecalciferol (Vitamin D-3) 50 MCG (1999 UT) tablet, Take 50 mcg by mouth [...] 2004 Migraine 2021 Peripheral neuropathy Sleep apnea 2007 [4] Past Surgical History: Procedure Laterality Date ANTERIOR CRUCIATE LIGAMENT REPAIR APPENDECTOMY APPENDECTOMY SECTION (HISTORICAL) [5] Family History Problem Relation Name Age of Onset ADD / ADHD Mother Carlos Anxiety disorder Mother Carlos Depression Mother Carlos Migraines Mother Carlos 4 samples of QULIPTA were given to the patient [id number] documented in this encounter [facility] 11-07-2024 Instructions ANTWAN Marsh CNP - 11/07/2024 2:00 PM EDT Botox is effective for treating her migraines but she is ill for 3 days following the injections Will provide samples of Qulipta to dose daily Ubrelvy as needed documented in this encounter [facility] 10-24-2024 Evaluation note Diagnosis Onset Date Resolution Abdominal pain acute October 24, 2024 10:17am Diarrhea acute October 24, 2024 10:17am [facility] Work Phone: 1(598) 306-790405-22-2025 Evaluation note* Diagnosis Onset Date Resolution Status Admit Date Abdominal pain acute October 24, 2024 10:17am Diarrhea acute October 24, 2024 10:17am Abdominal pain acute December 16, 2024 5:29am Diarrhea acute December 16 5:29am IBS (irritable bowel syndrome) acute December 16, 2024 5:29am [facility] Work Phone: 1(627) 803-577605-22-2025 Evaluation note* Diagnosis Onset Date Resolution Status Admit Date Abdominal pain acute October 24, 2024 10:17am Diarrhea acute October 24, 2024 10:17am Abdominal pain acute December 16, 2024 5:29am Diarrhea acute December 16 5:29am IBS (irritable bowel syndrome) acute December 16, 2024 5:29am Abdominal pain acute January 10:54am Constipation acute January 28, 2025 10:54am Diarrhea acute January 28, 025 10:54am Lumbar degenerative disc disease acute February 07 7:46am Obesity (BMI 30-39.9) acute Feb 7:46am [facility] Work Phone: [phone]) [phone] History of Present illness Narrative* Valeri Kwok MD - 10/21/2024 1:21 PM EDT Ocella - no aura documented in this encounterSKindred HealthcareSpskdy00-49-0720 Telephone encounter Note* Telephone Encounter - Lisa Ragsdale MA - 10/21/2024 7:51 AM EDT Med request/call routed to Dr Kwok and carol valencia sent [facility] [id number] Miscellaneous Notes* Telephone Encounter - Lisa Ragsdale [...] Prior Auth Slynd initiated through Coverm[employer]eds. Powell: [id number] PA denied: * Telephone Encounter - Mary Kate Logan - 10/16/2024 12:44 PM EDT Name of caller: Carlos Contact phone number: [phone] Relationship to Patient: patient Provider: Kerri Practice: [...] return their call: Yes documented in this encounterSKindred HealthcareFtkksp13-03-6114 Telephone encounter Note* Telephone Encounter - Kim Phan - 10/18/2024 4:43 PM EDT Patient states the Slynd is not covered and wants to know if she get get another medication prescribed. She states she wants to continue not having periods and doesn't want it to cause weight gain. Please call and advise. Thank you. [facility] DublinCzsjce01-81-9180 Miscellaneous Notes* Telephone Encounter - Kim Phan [...] Prior Auth Slynd initiated through [employer]. Powell: [id number] PA denied: * Telephone Encounter - Mary Kate Logan - 10/16/2024 12:44 PM EDT Name of caller: Carlos Contact phone number: [phone] Relationship to Patient: patient Provider: Kerri Practice: [...] return their call: Yes documented in this [facility]05-14-2025 Telephone encounter Note* Telephone Encounter - Lisa Ragsdale MA - 10/16/2024 2:08 PM EDT Images from the original note were not included. Prior Auth Slynd initiated through [employer]. Powell: [id number] PA denied: [facility] DublinKntrwb03-35-4556 Miscellaneous Notes* Telephone Encounter - Lisa Ragsdale MA - 10/16/2024 2:08 PM EDT Images from the original note were not included. Prior Auth Slynd initiated through [employer]. Powell: [id number] PA denied: * Telephone Encounter - Mary Kate Logan - 10/16/2024 12:44 PM EDT Name of caller: Carlos Contact phone number: [phone] Relationship to Patient: patient Provider: Kerri Practice: [...] return their call: Yes documented in this [facility]05-14-2025 Telephone encounter Note* Telephone Encounter - Mary Kate Logan - 10/16/2024 12:44 PM EDT Name of caller: Carlos Contact phone number: [phone] Relationship to Patient: patient Provider: Kerri Practice: [...] business hours to return their call: Yes [facility] DublinHpktpo92-51-2028 History of Present illness Narrative* Valeri Kwok [...] dry Psych - normal affect and behavior Carlos was seen today for contraception. Diagnoses and [...] Other reaction(s): GI Upset documented in this encounterSKindred HealthcareTwzrqt25-80-0905 Telephone encounter Note* Telephone Encounter - Lisa Ragsdale MA - 09/23/2024 8:57 AM EDT Call routed to Dr Medinas Tanesha WADE [facility] DublinCtnpln39-31-0324 Miscellaneous Notes* Telephone Encounter - Lisa Ragsdale MA - 09/23/2024 8:57 AM EDT Call routed to Tanesha Khalil MA * Telephone Encounter - Soniya Balderas - 09/23/2024 8:03 AM EDT Name of caller: Carlos Contact phone number: [phone] Relationship to Patient: patient Provider: Dr. Kwok Practice: [facility] Chief Complaint/Reason for Call: Carlos states that the Depo injections are causing her to gain alot of weight and she would like to know if she could stop the injections and use a different contraceptive. Please advise. Best time of day caller can be reached: Any Patient advised that office/PCP has 24-48 business hours to return their call: Yes documented in this encounterSKindred HealthcareVzmpci34-78-9565 Telephone encounter Note* Telephone Encounter - Soniya Balderas - 09/23/2024 8:03 AM EDT Name of caller: Carlos Contact phone number: [phone] Relationship to Patient: patient Provider: Dr. Kwok Practice: [facility] Chief Complaint/Reason for Call: Carlos states that the Depo injections are causing her to gain alot of weight and she would like to know if she could stop the injections and use a different contraceptive. Please advise. Best time of day caller can be reached: Any Patient advised that office/PCP has 24-48 business hours to return their call: Yes [facility] DublinHlpslt42-30-0525 Telephone encounter Note* Telephone Encounter - Alyssa Jain MA - 09/05/2024 8:21 AM EDT Patient has been contacted [facility] DublinFbqdgi91-55-2529 Miscellaneous Notes* Telephone Encounter - Alyssa Jain MA - 09/05/2024 8:21 AM EDT Patient has been contacted * Telephone Encounter - Megan Mason APRN - ROBERT - 09/05/2024 8:09 AM EDT Please call pt to set up an appt documented in this encounterSKindred HealthcareRdvqgy06-68-6374 Telephone encounter Note* Telephone Encounter - ANTWAN Marsh CNP - 09/05/2024 8:09 AM EDT Please call pt to set up an appt [place] [id number] Telephone encounter Note* Telephone Encounter - ANTWAN Marsh CNP - 09/04/2024 9:57 AM EDT Noted [place] [id number] Miscellaneous Notes* Telephone Encounter - ANTWAN Marsh [...] contact her PCP * Telephone Encounter - Rachelle Sotelo RN - 09/04/2024 7:50 AM EDT Having reaction from Botox, flu like symptoms for 3-4 days on head. States she called in and spoke with nurse this AM, was calling back in during office hours to reach someone in office. RN called [facility] neuro backline for further assistance. Office staff advised encounter has been akilah Ryder and she will reach out after reviewed. Patient made aware. States it is not an emergency but just wanted to let her know. No further needsat this time. Patient can be reached at [phone]. * Telephone Encounter - Tiesha Valles RN - 09/04/2024 7:02 AM EDT S: The patient is calling the [facility] about Botox injections B: She received [...] Protocols used: Information Only Call - No [id number] documented in this [facility]04-02-2025 Telephone encounter Note* Telephone Encounter - Alyssa Jain MA - 09/04/2024 9:02 AM EDT patient has been notified of providers message She states she will try one more time and if it happens again she will stop the botox injections [facility] DublinZwxfyt64-16-2742 Telephone encounter Note* Telephone Encounter - ANTWAN Marsh CNP - 09/04/2024 8:57 AM EDT We will cancel the Botox per her request [facility] DublinDftkmg08-39-4881 Telephone encounter Note* Telephone Encounter - Alyssa Jain MA - 09/04/2024 8:47 AM EDT Spoke with patient she stated the symptoms started 1 week after her botox injections. She also has scabs on her head. [place] [id number] Telephone encounter Note* Telephone Encounter - Alyssa Jain MA - 09/04/2024 8:46 AM EDT Lm for patient to call the office back, please relay providers message. [place] [id number] Telephone encounter Note* Telephone Encounter - ANTWAN Marsh CNP - 09/04/2024 8:25 AM EDT Those symptoms she is having are NOT from the Botox. She needs to contact her PCP [place] [id number] Telephone encounter Note* Telephone Encounter - Rachelle Sotelo RN - 09/04/2024 7:50 AM EDT Having reaction from Botox, flu like symptoms for 3-4 days on head. States she called in and spoke with nurse this AM, was calling back in during office hours to reach someone in office. RN called [facility] neuro backline for further assistance. Office staff advised encounter has been akilah Ryder and she will reach out after reviewed. Patient made aware. States it is not an emergency but just wanted to let her know. No further needsat this time. Patient can be reached at [phone]. [address]Kpciks87-88-4400 Telephone encounter Note* Telephone Encounter - Tiesha Valles RN - 09/04/2024 7:02 AM EDT S: The patient is calling the [facility] about Botox injections B: She received [...] Protocols used: Information Only Call - No [id number]-FM [facility] [id number] Radiology Diagnostic study note [facility] [address] [place] [address] Lumbar Spine 2 or 3 Views MR#: [id number] Acct: [id number] Name: CARLOS GIRON Rep #: [id number] : 1990 F 34 From: Arnol Willson MD PCP: Dr. Nataliya Gomez MD Status: REG CL I Study:Lumbar Spine 2 or 3 Views Date of Exam: 08/19/24 Exam# [id number] Ordering Dr: Diana Gomez MD PROCEDURE: LUMBAR [...] If persistent concern, consider MRI Reading Location: [id number] CC: Dr. Nataliya Gomez MD ~ End Packer: Signed [facility]03-13-2025 History of Present illness Narrative* ANTWAN Marsh CNP - 08/15/2024 2:00 PM EDT DEPARTMENT OF NEUROLOGY BOTOX PROCEDURE NOTE FOR HEADACHE Date: 08/15/2024 Patient: Carlos Giron : 1990 Diagnosis: Intractable chronic migraine [...] 2. L Frontalis 10 units 3. R Pest Control Specialist 10 units 4. L Pest Control Specialist 10 units 5. R Temporalis 30 units 6. L Temporalis 30 units 7. R Occipitalis 30 units 8. L Occipitalis 30 units 9. R Trapezious 20 units 10.L Trapezious 20 units Total units injected 200 units. Units discarded 0 units. She reports >75% reduction in migraines with Botox Comments: Botox is Patient Supplied [facility] [phone] [x] Pt tolerated procedure well. Pt advised to avoid exercise or strenuous physical activity for 24hours. Post treatment expectations reviewed in detail. ANTWAN Gonsalez CNP documented in this [facility]03-13-2025 NoteDEPARTMENT OF NEUROLOGY BOTOX PROCEDURE NOTE FOR HEADACHE Date: 08/15/2024 Patient: Carlos Giron : 1990 Diagnosis: Intractable chronic migraine [...] 2. L Frontalis 10 units 3. R Pest Control Specialist 10 units 4. L Pest Control Specialist 10 units 5. R Temporalis 30 units 6. L Temporalis 30 units 7. R Occipitalis 30 units 8. L Occipitalis 30 units 9. R Trapezious 20 units 10.L Trapezious 20 units Total units injected 200 units. Units discarded 0 units. She reports >75% reduction in migraines with Botox Comments: Botox is Patient Supplied [facility] [phone] [x] Pt tolerated procedure well. Pt advised to avoid exercise or strenuous physical activity for 24 hours. Post treatment expectations reviewed in detail. Megan Mason APRN - [facility]02-24-2025 Telephone encounter Note* Telephone Encounter - Sushma West - 07/29/2024 1:56 PM EST The patient has upcoming Botox appt on 08/15/2024 The Botox will be supplied by at [facility] and delivered to the MD office on 08/06/2024 BOTOX IS PATIENT SUPPLIED!!! # of Units to be Administered: 200 Medication: botox Dosing Schedule: once every 12 weeks Prior Authorization: Approved (pharmacy benefit) [facility] [id number] Miscellaneous Notes* Telephone Encounter - Sushma West - 07/29/2024 1:56 PM EST The patient has upcoming Botox appt on 08/15/2024 The Botox will be supplied by us at [facility] and delivered to the MD office on 08/06/2024 BOTOX IS PATIENT SUPPLIED!!! # of Units to be Administered: 200 Medication: botox Dosing Schedule: once every 12 weeks Prior Authorization: Approved (pharmacy benefit) documented in this [facility]02-03-2025 Telephone encounter Note* Telephone Encounter - Lisa Ragsdale MA - 07/08/2024 8:49 AM EST [place]: 12/13/23 NOV: Refill pended for approval Depo with 0 refills. [facility] DublinTietth26-12-0138 Miscellaneous Notes* Telephone Encounter - Lisa Ragsdale MA - 07/08/2024 8:49 AM EST [place]: 12/13/23 NOV: Refill pended for approval Depo with 0 refills. documented in this encounterSKindred HealthcareOdhaem86-99-3777 Telephone encounter Note* Telephone Encounter - Margret Whitt [facility] - 07/03/2024 9:13 AM EST [facility] investigating ubrelvy Electronically signed by Margret Whitt [facility] at 07/03/2024 9:13 AM EST [facility] [id number] Miscellaneous Notes* Telephone Encounter - Margret Whitt [facility] - 07/03/2024 9:13 AM EST [facility] Electronically signed by Margret Whitt [facility] at 07/03/2024 9:13 AM EST * Telephone Encounter - ANTWAN Marsh CNP - 07/03/2024 9:05 AM EST Let her know that we have to get approval for Ubrelvy first--I sent a message to [facility] * Telephone Encounter - ANTWAN Marsh CNP - 07/03/2024 9:04 AM EST Is it possible to get Ubrelvy approved? * Telephone Encounter - Soniya Balderas - 07/03/2024 8:37 AM EST Name of caller: Carlos Contact phone number: [phone] Relationship to Patient: patient Provider: ROBERT Mason Practice: [facility] [place] Chief Complaint/Reason for Call: Carlos states that she does not have a transportation to come tothe office and pepper picker samples of Ubrelvy. Carlos states that she is requesting to have a script sent to [id number], as soon as possible. Please advise. Best [...] encounter: Yes Patient is inquiring if the [facility] pharmacy can deliver samples of Ubrelvy to her. Please advise. documented in this encounterSKindred HealthcareQophdz90-72-6934 Telephone encounter Note* Telephone Encounter - ANTWAN Marsh CNP - 07/03/2024 9:05 AM EST Let her know that we have to get approval for Ubrelvy first--I sent a message to [facility] DublinCtmcsf25-98-9808 Telephone encounter Note* Telephone Encounter - ANTWAN Marsh CNP - 07/03/2024 9:04 AM EST Is it possible to get Ubrelvy approved? [facility] [id number] Telephone encounter Note* Telephone Encounter - Soniya Balderas - 07/03/2024 8:37 AM EST Name of caller: Carlos Contact phone number: [phone] Relationship to Patient: patient Provider: ROBERT Mason Practice: [facility] [place] Chief Complaint/Reason for Call: Carlos states that she does not have a transportation to come tothe office and pepper picker samples of Ubrelvy. Carlos states that she is requesting to have a script sent to [facility] #[id number], as soon as possible. Please advise. Best time of day caller can be reached: Any Patient advised that office/PCP has 24-48 business hours to return their call: No [facility] Gzkbip05-32-8275 Telephone encounter Note* Telephone Encounter - Alyssa Jain MA - 07/03/2024 8:18 AM EST Lm for patient to call the office back, please let her know samples can not be mailed. [facility] Jzsuis18-14-8485 Telephone encounter Note* Telephone Encounter - Valerie Haley MA - 07/03/2024 7:47 AM EST See other TE [facility] Gvxqac62-02-2045 Miscellaneous Notes* Telephone Encounter - Valerie Haley [...] > 24 hours and unexplained Protocols used: Wctnkexq-[id number]-HT documented in this [facility]01-28-2025 Telephone encounter Note* Telephone Encounter - Jenni Juarez - 07/02/2024 4:01 PM EST Please see previous TE Message released to patient as written. Patient's further questions if applicable: N/A Were all questions from office addressed or relayed to the patient from encounter: Yes Patient is inquiring if the [facility] pharmacy can deliver samples of Ubrelvy to her. Please advise. [facility] [id number] Telephone encounter Note* Telephone Encounter - Valerie Haley MA - 07/02/2024 3:54 PM EST Lm for patient to call the office back, please relay providers message. [facility] DublinWxvzkr71-86-1462 Telephone encounter Note* Telephone Encounter - ANTWAN Marsh CNP - 07/02/2024 3:11 PM EST Please contact pt and have her stop in and get samples of Ubrelvy-4 of the 100mgs [facility] DublinEsevzp27-91-7820 Telephone encounter Note* Telephone Encounter - Sudhakar [...] > 24 hours and unexplained Protocols used: [id number]-IB [facility] [id number] Telephone encounter Note* Telephone Encounter - Yuriy [...] to the office to discuss. Thank you! [facility] DublinOditwh69-69-0089 Miscellaneous Notes* Telephone Encounter - Yuriy Hall [...] to discuss. Thank you! documented in this [facility]12-19-2024 History of Present illness Narrative* Megan Mason APRN - SMASHER - 05/23/2024 2:30 PM EST DEPARTMENT OF NEUROLOGY BOTOX PROCEDURE NOTE FOR HEADACHE Date: 05/23/2024 Patient: Carlos Giron : 1990 Diagnosis: Intractable chronic migraine [...] 2. L Frontalis 10 units 3. R Pest Control Specialist 10 units 4. L Pest Control Specialist 10 units 5. R Temporalis 30 units 6. L Temporalis 30 units 7. R Occipitalis 30 units 8. L Occipitalis 30 units 9. R Trapezious 20 units 10.L Trapezious 20 units Total units injected 200 units. Units discarded 0 units. Patient reports only 3 headaches since last Botox injection Comments: Botox is Patient Supplied [facility] [phone] [x] Pt tolerated procedure well. Pt advised to avoid exercise or strenuous physical activity for 24hours. Post treatment expectations reviewed in detail. Megan Mason APRN - ROBERT documented in this [facility]12-19-2024 [facility]EP[facility] B[facility]OX PROCEDURE NOTE FOR HEADACHE Date: 05/23/2024 Patient: Carlos Giron : 1990 Diagnosis: Intractable chronic migraine [...] 2. L Frontalis 10 units 3. R Pest Control Specialist 10 units 4. L Pest Control Specialist 10 units 5. R Temporalis 30 units 6. L Temporalis 30 units 7. R Occipitalis 30 units 8. L Occipitalis 30 units 9. R Trapezious 20 units 10.L Trapezious 20 units Total units injected 200 units. Units discarded 0 units. Patient reports only 3 headaches since last Botox injection Comments: Botox is Patient Supplied [facility] [id number] [x] Pt tolerated procedure well. Pt advised to avoid exercise or strenuous physical activity for 24 hours. Post treatment expectations reviewed in detail. Megan Mason APRN - [facility]Formerly [facility]11-01-2024 Telephone encounter Note* Telephone Encounter - Lisa Ragsdale MA - 04/05/2024 2:57 PM EDT [place]: 12/13/23 NOV: Refill pended for approval Depo-Provera with 0 refills. [place] [id number] Miscellaneous Notes* Telephone Encounter - Lisa Ragsdale MA - 04/05/2024 2:57 PM EDT [place]: 12/13/23 NOV: Refill pended for approval Depo-Provera with 0 refills. documented in this [facility]09-25-2024 History of Present illness Narrative* ANTWAN Marsh CNP - 02/28/2024 2:30 PM EDT DEPARTMENT OF NEUROLOGY BOTOX PROCEDURE NOTE FOR HEADACHE Date: 02/27/2023 Patient: Carlos Giron : 1990 Diagnosis: Intractable chronic migraine [...] 2. L Frontalis 10 units 3. R Pest Control Specialist 10 units 4. L Pest Control Specialist 10 units 5. R Temporalis 30 units 6. L Temporalis 30 units 7. R Occipitalis 30 units 8. L Occipitalis 30 units 9. R Trapezious 20 units 10.L Trapezious 20 units Total units injected 200 units. Units discarded 0 units. She reports only 3 migraine since last Botox injections Comments: Botox is Patient Supplied [facility] [phone] [x] Pt tolerated procedure well. Pt advised to avoid exercise or strenuous physical activity for 24hours. Post treatment expectations reviewed in detail. ANTWAN Gonsalez CNP documented in this [facility]09-25-2024 Miscellaneous Notes* Addendum Note - Valerie Haley MA - 02/28/2024 2:30 PM EDTAddended by: VALERIE HALEY on: 02/28/2024 03:16 PM Modules accepted: Orders * Addendum Note - ANTWAN Marsh CNP - 02/28/2024 2:30 PM EDTAddended by: CHRISTINA MASON on: 02/28/2024 03:20 PM Modules accepted: Orders documented in this [facility]09-25-2024 Note* Addendum Note - Valerie Haley MA - 02/28/2024 2:30 PM EDTAddended by: VALERIE HALEY on: 02/28/2024 03:16 PM Modules accepted: Orders [facility] [id number] Note* Addendum Note - ANTWAN Marsh CNP - 02/28/2024 2:30 PM EDTAddended by: CHRISTINA MASON on: 02/28/2024 03:20 PM Modules accepted: Orders [facility] [id number] Note* Addendum Note - Valerie Haley MA - 02/28/2024 2:30 PM EDTAddended by: VALERIE HALEY on: 02/28/2024 03:16 PM Modules accepted: Orders [facility] DublinPpjqmt87-08-1805 Note* Addendum Note - ANTWAN Marsh CNP - 02/28/2024 2:30 PM EDTAddended by: CHRISTINA MASON on: 02/28/2024 03:20 PM Modules accepted: Orders [place] [id number] Note* Addendum Note - Valerie Haley MA - 02/28/2024 2:30 PM EDTAddended by: VALERIE HALEY on: 02/28/2024 03:16 PM Modules accepted: Orders [place] [id number] Note* Addendum Note - ANTWAN Marsh CNP - 02/28/2024 2:30 PM EDTAddended by: CHRISTINA MASON on: 02/28/2024 03:20 PM Modules accepted: Orders [place] [id number] Note* Addendum Note - Valerie Haley MA - 02/28/2024 2:30 PM EDTAddended by: VALERIE HALEY on: 02/28/2024 03:16 PM Modules accepted: Orders [place] [id number] Note* Addendum Note - ANTWAN Marsh CNP - 02/28/2024 2:30 PM EDTAddended by: CHRISTINA MASON on: 02/28/2024 03:20 PM Modules accepted: Orders [place] [id number] Note* Addendum Note - Valerie Haley MA - 02/28/2024 2:30 PM EDTAddended by: VALERIE HALEY on: 02/28/2024 03:16 PM Modules accepted: Orders [place] [id number] Note* Addendum Note - ANTWAN Marsh CNP - 02/28/2024 2:30 PM EDTAddended by: CHRISTINA MASON on: 02/28/2024 03:20 PM Modules accepted: Orders [place] [id number] Note* Addendum Note - Valerie Haley MA - 02/28/2024 2:30 PM EDTAddended by: VALERIE HALEY on: 02/28/2024 03:16 PM Modules accepted: Orders [place] [id number] Note* Addendum Note - ANTWAN Marsh CNP - 02/28/2024 2:30 PM EDTAddended by: CHRISTINA MASON on: 02/28/2024 03:20 PM Modules accepted: Orders [place] [id number] Note* Addendum Note - Valerie Haley MA - 02/28/2024 2:30 PM EDTAddended by: VALERIE HALEY on: 02/28/2024 03:16 PM Modules accepted: Orders [place] [id number] Note* Addendum Note - ANTWAN Marsh CNP - 02/28/2024 2:30 PM EDTAddended by: CHRISTINA MASON on: 02/28/2024 03:20 PM Modules accepted: Orders [facility] [id number] NoteDEPARTMENT OF NEUROLOGY BOTOX PROCEDURE NOTE FOR HEADACHE Date: 02/27/2023 Patient: Carlos Giron : 1990 Diagnosis: Intractable chronic migraine [...] 2. L Frontalis 10 units 3. R Pest Control Specialist 10 units 4. L Pest Control Specialist 10 units 5. R Temporalis 30 units 6. L Temporalis 30 units 7. R Occipitalis 30 units 8. L Occipitalis 30 units 9. R Trapezious 20 units 10.L Trapezious 20 units Total units injected 200 units. Units discarded 0 units. She reports only 3 migraine since last Botox injections Comments: Botox is Patient Supplied [facility] [phone] [x] Pt tolerated procedure well. Pt advised to avoid exercise or strenuous physical activity for 24 hours. Post treatment expectations reviewed in detail. Megan Mason APRN - [facility]Formerly [facility]09-25-2024 Note Addended by: CHRISTINA MASON on: 02/28/2024 03:20 PM Modules accepted: [facility]09-25-2024 NoteAddended by: VALERIE HALEY on: 02/28/2024 03:16 PM Modules accepted: [facility]08-27-2024 Telephone encounter Note* Telephone Encounter - Alyssa Jain MA - 01/30/2024 9:40 AM EDT Patient has been rescheduled [place] [id number] Miscellaneous Notes* Telephone Encounter - Alyssa Jain MA - 01/30/2024 9:40 AM EDT Patient has been rescheduled * Telephone Encounter - Soniya Balderas - 01/30/2024 9:37 AM EDT Name of Caller: Carlos Contact Reason for Appointment: Reschedule 01/24 botox appointment for two weeks out Office Name: [facility] [place] documented in this encounterSKindred [id number] Telephone encounter Note* Telephone Encounter - Soniya Balderas - 01/30/2024 9:37 AM EDT Name of Caller: Carlos Contact Reason for Appointment: Reschedule 01/24 botox appointment for two weeks out Office Name: [facility] [place] [id number] Telephone encounter Note* Telephone Encounter - Clare Maurice - 01/11/2024 1:04 PM EDT Patients prescription insurance currently doesn't require prescription rx pa sorry about that, thanks! [place] [id number] Miscellaneous Notes* Telephone Encounter - Clare Maurice [...] Botox will be supplied by us at [facility] and delivered to the MD office on 01/23/24. BOTOX IS PATIENT SUPPLIED!!! # of Units to be Administered: 200 Medication: botox Dosing Schedule: once every 12 weeks Prior Authorization: Approved (pharmacy benefit) documented in this encounterSKindred [id number] Telephone encounter Note* Telephone Encounter - Alyssa Jain MA - 01/11/2024 9:42 AM EDT Can we have the auth dates please [facility] [id number] Telephone encounter Note* Telephone Encounter - Clare Maurice - 01/11/2024 9:37 AM EDT The patient has upcoming Botox appt on 01/25/24. The Botox will be supplied by us at [facility] and delivered to the MD office on 01/23/24. BOTOX IS PATIENT SUPPLIED!!! # of Units to be Administered: 200 Medication: botox Dosing Schedule: once every 12 weeks Prior Authorization: Approved (pharmacy benefit) [facility] [id number] Telephone encounter Note* Telephone Encounter - Lisa Ragsdale MA - 01/05/2024 11:00 AM EDT [place]: 12/13/23 NOV: Refill pended for approval Depo-Provera with 0 refills. [facility] [id number] Miscellaneous Notes* Telephone Encounter - Lisa Ragsdale MA - 01/05/2024 11:00 AM EDT [place]: 12/13/23 NOV: Refill pended for approval Depo-Provera with 0 refills. documented in this encounterSKindred [id number] Telephone encounter Note* Telephone Encounter - Soniya Haney - 01/01/2024 10:37 AM EDT Message released to patient as written. Patient's further questions if applicable: yes Were all questions from office addressed or relayed to the patient from encounter: Yes [facility] [id number] Miscellaneous Notes* Telephone Encounter - Soniya Haney - 01/01/2024 10:37 AM EDT Message released to patient as written. Patient's further questions if applicable: yes Were all questions from office addressed or relayed to the patient from encounter: Yes documented in this [place] [id number] History of Present illness Narrative* Valeri Kwok MD - 12/13/2023 12:15 PM EDT Carlos Giron 12/13/2022 33 y.o. Primary Care Physician: Nataliya Gomez MD Chief Complaint Patient presents with Follow-up Urinary incontinence for years Vaginal itching IBS HPI : Carlos Giron is a 33 y.o. female here [...] 2009 Back pain Bipolar 2 disorder (CMS/HCC) ([facility]) Cluster headache Depression 2004 Headache 2021 Headache, tension-type 2021 Insomnia 2004 Migraine 2021 Sleep apnea 2006 Past Surgical History: Procedure Laterality Date ANTERIOR CRUCIATE LIGAMENT REPAIR APPENDECTOMY APPENDECTOMY SECTION (HISTORICAL) Family History Problem Relation Name Age of Onset ADD / ADHD Mother Carlos Anxiety disorder Mother Carlos Depression Mother Carlos Migraines Mother Carlos Social History Socioeconomic History Marital status: Single [...] Resource Strain: Medium Risk (09/29/2021) Received from [facility] Overall Financial Resource Strain (CARDIA) Difficulty of Paying Living Expenses: Somewhat hard Food Insecurity: Food Insecurity Present (09/29/2021) Received from [facility] Hunger Vital Sign Worried About Running Out of Food in the Last Year: Sometimes true Ran Out of Food in the Last Year: Never true Transportation Needs: No Transportation Needs (09/29/2021) Received from [facility] PRAPARE - Transportation Lack of Transportation (Medical): No Lack of Transportation (Non-Medical): No Physical Activity: Insufficiently Active (09/29/2021) Received from [facility] Exercise Vital Sign Days of Exercise per Week: 2 days Minutes of Exercise per Session: 30 min Stress: Stress Concern Present (09/29/2021) Received from [facility] [employer] - Occupational Stress Questionnaire Feeling of Stress : To some extent Social Connections: Socially Isolated (09/29/2021) Received from [facility] Social Connection and Isolation Panel [NHANES] Frequency of Communication with Friends and Family: Twice a week Frequency of Social Gatherings with Friends and Family: Never Attends Denominational Services: Never Active Member of Clubs or Organizations: No Attends Club or Organization Meetings: Never Marital Status: Never Intimate Partner Violence: Not on file Housing Stability: Low Risk (09/29/2021) Received from [facility] Housing Stability Vital Sign Unable to Pay for Housing in the Last Year: No Number of Places Lived in the Last Year: 2 In the last 12 months, was there a time when you did not have a steady place to sleep or slept in [facility] (including now)?: No MEDICATIONS: Current Outpatient [...] Body mass index is 40.19 kg/m . VEHICLE DISMANTLER EXAM: EXTERNAL GENITALIA: normal female structures VAGINA: [...] Normal mood and affect, A&O x3. ASSESSMENT/PLAN: Carlos was seen today for follow-up. Diagnoses and [...] bladder If does not work send to urp/engineer assistant Cult done Follow up if symptoms worsen or fail to improve. * Tanesha Braxton MA - 12/13/2023 12:15 PM EDT Electric Blanket Wirer was offered to the patient for exam. Patient accepted, nurses medical assistants phlebotomists in room during exam and consult. documented in this [facility]06-17-2024 Telephone encounter Note* Telephone Encounter - Lisa Ragsdale MA - 11/20/2023 12:02 PM EDT [place]: NOV: 11/22/2023 Refill pended for approval Depo-Provera with 0 refills. [facility] [id number] Miscellaneous Notes* Telephone Encounter - Lisa Ragsdale MA - 11/20/2023 12:02 PM EDT [place]: NOV: 11/22/2023 Refill pended for approval Depo-Provera with 0 refills. documented in this [facility]05-28-2024 History of Present illness Narrative* ANTWAN Marsh CNP - 10/31/2023 1:00 PM EDT DEPARTMENT OF NEUROLOGY BOTOX PROCEDURE NOTE FOR HEADACHE Date: 10/31/2023 Patient: Carlos Giron : 1990 Diagnosis: Intractable chronic migraine [...] 2. L Frontalis 10 units 3. R Pest Control Specialist 10 units 4. L Pest Control Specialist 10 units 5. R Temporalis 30 units 6. L Temporalis 30 units 7. R Occipitalis 30 units 8. L Occipitalis 30 units 9. R Trapezious 20 units 10.L Trapezious 20 units Total units injected 200 units. Units discarded 0 units. Comments: Botox is Patient Supplied [facility] [phone] [x] Pt tolerated procedure well. Pt advised to avoid exercise or strenuous physical activity for 24hours. Post treatment expectations reviewed in detail. ANTWAN Gonsalez CNP documented in this [facility]05-14-2024 Telephone encounter Note* Telephone Encounter - [...] and was told to follow up with Machine Setter [employer] for advice. Denies fever, blood in urine, [...] No - on Depo Protocols used: Urinary Wdgsbgaj-YXLEE-KW T [facility] [id number] Miscellaneous Notes* Telephone Encounter - Princess Rios [...] and was told to follow up with [employer] for advice. Denies fever, blood in urine, [...] No - on Depo Protocols used: Urinary Adomlfwm-VLBCC-JJ documented in this encounterSKindred [id number] Telephone encounter Note* Telephone Encounter - Lisa Ragsdale MA - 09/12/2023 11:01 AM EDT Sent pt mssg via [employer] about her refill request being sent to Dr. Drea Preciado [facility] [id number] Miscellaneous Notes* Telephone Encounter - Lisa Ragsdale MA - 09/12/2023 11:01 AM EDT Sent pt mssg via [employer] about her refill request being sent to Dr. Drea Preciado * Telephone Encounter - Lisa Ragsdale MA - 09/12/2023 10:56 AM EDT [place]: 06/27/23 NOV: 09/20/23 Refill pended for approval Depo-Provera with 0 refills. * Telephone Encounter - Maci Graves - 09/11/2023 4:58 PM EDT Name of caller: Carlos Giron Contact phone number: [phone] Relationship to Patient: patient Provider: Ozzy Practice: [facility] Chief Complaint/Reason for Call: Pt called to reschedule her depo shot appt due to ride issues but she also wanted to make sure that she had refills to pepper picker and bring with her to the [...] return their call: Yes documented in this encounterSKindred HealthcareQarsvq65-82-8566 Telephone encounter Note* Telephone Encounter - Lisa Ragsdale MA - 09/12/2023 10:56 AM EDT [place]: 06/27/23 NOV: 09/20/23 Refill pended for approval Depo-Provera with 0 refills. [facility] [id number] Telephone encounter Note* Telephone Encounter - Maci Graves - 09/11/2023 4:58 PM EDT Name of caller: Carlos Giron Contact phone number: [phone] Relationship to Patient: patient Provider: Ozzy Practice: [facility] Chief Complaint/Reason for Call: Pt called to reschedule her depo shot appt due to ride issues but she also wanted to make sure that she had refills to pepper picker and bring with her to the [...] to return their call: Yes [facility] [id number] Telephone encounter Note* Telephone Encounter - Alyssa Jain MA - 08/25/2023 10:49 AM EDT Noted [facility] [id number] Miscellaneous Notes* Telephone Encounter - Alyssa Jain MA - 08/25/2023 10:49 AM EDT Noted * Telephone Encounter - Sushma West - 08/25/2023 10:45 AM EDT The patient has upcoming Botox appt on 09/13. The Botox will be supplied by us at [facility] and deliveredto the MD office on 09/04. BOTOX IS PATIENT SUPPLIED!!! # of Units to be Administered: 200 Medication: Dosing Schedule: once every 12 weeks Prior Authorization: Approved (pharmacy benefit) [place] reference #: [id number] Approval dates: 02/10/2023 - 11/08/2023 Number of Units Approved: 200 units per visit documented in this encounterSKindred HealthcareLttdix66-54-7983 Telephone encounter Note* Telephone Encounter - Sushma West - 08/25/2023 10:45 AM EDT The patient has upcoming Botox appt on 09/13. The Botox will be supplied by us at [facility] and deliveredto the MD office on 09/04. BOTOX IS PATIENT SUPPLIED!!! # of Units to be Administered: 200 Medication: Dosing Schedule: once every 12 weeks Prior Authorization: Approved (pharmacy benefit) [place] reference #: [id number] Approval dates: 02/10/2023 - 11/08/2023 Number of Units Approved: 200 units per visit [facility] [id number] History of Present illness Narrative* ANTWAN Marsh CNP - 08/17/2023 2:30 PM EDT Patient was [...] Age of Onset ADD / ADHD Mother Carlos Anxiety disorder Mother Carlos Depression Mother Carlos Migraines Mother Carlos Objective Vitals: There were no vitals taken [...] TSH VITAMIN B12: No results found for: [id number] No results found for: PHENYTOIN, PHENOBARB, VALPROATE, CBMZ No components found for: TOPIRA @RESULTINGLABINFO@ No results found for: LEVETIRACETA, FERRITIN, CRP, FRIEDA, ANCA No results found for: ADELE, IMMUNOGLOBUL, OLIGOBANDS No results found for: TKK67QK, HEPCAB No results found for: CRP, ANATITER, ANCA FERRITIN: No results found for: FERRITIN ---- MR brain w and wo contrast Narrative: Patient Name: CARLOS GIRON : 1990 [facility]#: [id number] Exam Date/Time: 05/23/2023 15:13 Procedure: MR BRAIN [...] signed by @JERMANR@ on @TDNR@ at @NOWNR@ . The patient [...] that they are currently in the state [facility]. If the patient is a minor, permission has been obtained by the parent or guardian for the patient to receive medical care at this visit. documented in this [facility]03-14-2024 Instructions* Patient Instructions* ANTWAN Marsh CNP - 08/17/2023 2:30 PM EDT She reports improvement in migraines with first round of Botox. No adverse reactions Will proceed with second round. Nurtec as needed documented in this [facility]01-25-2024 Telephone encounter Note* Telephone Encounter - Markos Gomes - 06/29/2023 11:13 AM EST Message released to patient as written. Patient's further questions if applicable: Carlos expresses understanding of this message. Pleasebe advised. Were all questions from office addressed or relayed to the patient from encounter: Yes [facility] [id number] Miscellaneous Notes* Telephone Encounter - Markos Gomes - 06/29/2023 11:13 AM EST Message released to patient as written. Patient's further questions if applicable: Carlos expresses understanding of this message. Pleasebe advised. [...] 06/29/2023 9:50 AM EST Name of caller: Carlos Contact phone number: [phone] Relationship to Patient: patient Provider: Megan Mason CNP Practice: [facility] Neuro Chief Complaint/Reason for Call: Patient states that she would like to discuss the results from herMRI that was completed in May. Please advise. Best time of day caller can be reached: Any Patient advised that office/PCP has 24-48 business hours to return their call: Yes documented in this encounterSKindred HealthcareOlerby47-22-7544 Telephone encounter Note* Telephone Encounter - Alyssa Jain MA - 06/29/2023 10:57 AM EST Lm for patient to call the office back, please relay providers message. [facility] [id number] Telephone encounter Note* Telephone Encounter - ANTWAN Marsh CNP - 06/29/2023 10:48 AM EST MRI brain-limited by motion but normal [facility] [id number] Telephone encounter Note* Telephone Encounter - Maxime Mcneal - 06/29/2023 9:50 AM EST Name of caller: Carlos Contact phone number: [phone] Relationship to Patient: patient Provider: Megan Mason CNP Practice: [facility] Chief Complaint/Reason for Call: Patient states that she would like to discuss the results from herMRI that was completed in May. Please advise. Best time of day caller can be reached: Any Patient advised that office/PCP has 24-48 business hours to return their call: Yes [facility] [id number] History of Present illness Narrative* ANTWAN Marsh CNP - 06/21/2023 12:30 PM EST DEPARTMENT OF NEUROLOGY BOTOX PROCEDURE NOTE FOR HEADACHE Date: 06/21/2023 Patient: Carlos Giron : 1990 Diagnosis: Intractable chronic migraine [...] 2. L Frontalis 10 units 3. R Pest Control Specialist 10 units 4. L Pest Control Specialist 10 units 5. R Temporalis 30 units 6. L Temporalis 30 units 7. R Occipitalis 30 units 8. L Occipitalis 30 units 9. R Trapezious 20 units 10.L Trapezious 20 units Total units injected 200 units. Units discarded 0 units. This is her first round of Botox Comments: Botox is Patient Supplied [facility] [phone] [x] Pt tolerated procedure well. Pt advised to avoid exercise or strenuous physical activity for 24hours. Post treatment expectations reviewed in detail. MeganANTWAN Gomez CNP documented in this [facility]12-11-2023 Telephone encounter Note* Telephone Encounter - Margret Whitt RPh - 05/15/2023 4:18 PM EST Med will be sent to office 05/23 Botox patient supplied Approval [id number] [facility]10/23[facility]11/08/[facility] Electronically signed by Margret Whitt [facility] at 05/15/2023 4:21 PM EST [facility] [id number] Miscellaneous Notes* Telephone Encounter - Margret Whitt RP - 05/15/2023 4:18 PM EST Med will be sent to office 05/23 Botox patient supplied Approval [id number] 02/10/23-11/08/23 [facility] Electronically signed by Margret Whitt [facility] at 05/15/2023 4:21 PM EST * Telephone Encounter - Alyssa Jain MA [...] date of appt please. documented in this encounterSKindred HealthcareFkxnsq31-61-3093 Telephone encounter Note* Telephone Encounter - Alyssa Jain MA - 05/15/2023 9:41 AM EST Patient has been scheduled for 05/24/23 at 2:30 pm [facility] [id number] Telephone encounter Note* Telephone Encounter - Mary Kate Wilhelm - 05/15/2023 9:26 AM EST Patient returned call - unable to get through back line - please return call to patient. [place] [id number] Telephone encounter Note* Telephone Encounter - Alyssa Jain MA - 05/15/2023 8:24 AM EST Lm for patient to call the office back, please transfer her back to the office when she calls back. [facility] [id number] Telephone encounter Note* Telephone Encounter - ANTWAN Marsh CNP - 05/15/2023 8:16 AM EST Received message from [facility] that Botox is approved. Please contact pt to schedule apptand then let [facility] know date of appt please. [facility] [id number] Telephone encounter Note* Telephone Encounter - Margret Whitt RP - 05/12/2023 4:11 PM EST Patient needs scheduled for botox appointment. Please schedule out so that [facility] has time to send tot office BOTOX IS PATIENT SUPPLIED!!! # of Units to be Administered: 200 Medication: Botox 200 Dosing Schedule: 200 units every 12 weeks Prior Authorization: RADHA reference #:[id number] Approval dates: 02/10/23-11/08/23 Number of Units Approved: 200 per visit Electronically signed by Margret Whitt [facility] at 05/12/2023 4:14 PM EST [facility] [id number] Miscellaneous Notes* Telephone Encounter - Margret Whitt [facility] - 05/12/2023 4:11 PM EST Patient needs scheduled for botox appointment. Please schedule out so that [facility] has time to send tot office BOTOX IS PATIENT SUPPLIED!!! # of Units to be Administered: 200 Medication: Botox 200 Dosing Schedule: 200 units every 12 weeks Prior Authorization: RADHA reference #:[id number] Approval dates: 02/10/23-11/08/23 Number of Units Approved: 200 per visit Electronically signed by Margret Whitt [facility] at 05/12/2023 4:14 PM EST documented in this [facility]12-07-2023 History of Present illness Narrative* Megan Mason APRN - [facility] - 05/11/2023 8:30 AM EST Visit [...] Back pain Bipolar 2 disorder (CMS/HCC) ([facility]) Depression 2004 Headache 2021 Headache, tension-type 2021 [...] Age of Onset ADD / ADHD Mother Carlos Objective Vitals: BP 117/81 (BP Location: Right [...] TSH VITAMIN B12: No results found for: [id number] No results found for: PHENYTOIN, PHENOBARB, VALPROATE, CBMZ No components found for: TOPIRA @RESULTINGLABINFO@ No results found for: LEVETIRACETA, FERRITIN, CRP, FRIEDA, ANCA No results found for: ADELE, IMMUNOGLOBUL, OLIGOBANDS No results found for: NGG19UE, HEPCAB No results found for: CRP, ANATITER, ANCA FERRITIN: No results found for: FERRITIN ---- XR FOOT STANDARD BILATERAL Narrative: [id number] Radiology ACCESSION EXAM DATE/TIME PROCEDURE ORDERING PROVIDER [id number] 09/16/2021 13:27 EDT CR Foot Complete 3+ SOPHIE GERMAN D Views Bilateral CPT code 94831 Reason For Exam (CR Foot Complete 3+ [...] signed by @MEMDNR@ on @TDNR@ at @NOWNR@ documented in this [facility]12-07-2023 Instructions* Patient Instructions* ANTWAN Marsh CNP [...] 2 hours if needed documented in this [facility]11-07-2023 Hospital Discharge instructions Patient Education 04/11/2023 [...] the smoke from others. You may use yybt-jmt-wtzvdnq acetaminophen or ibuprofen for fever, muscle aching, [...] body and be dangerous to your health. Tlzb-ktb-cquotry remedies won't shorten the length of the [...] or as directed by your healthcare provider [phone] [employer]. [address] [place] [address]. All rights reserved. This information is not intended as a substitute for professional medical care. Always follow yourhealthcare professional's instructions. Follow Up Care 04/11/2023 12:00:11 With:MARCUS NASH MD Address: [address] [place] [address]- [phone] When:2-4 days [facility] 11-07-2023 Emergency department Discharge summary Discharge Instructions Thank you for allowing [facility] to assist you with your healthcare needs. The following is importantdischarge information regarding your hospital visit. Diagnosis from Today's Visit Body aches Sore throat - Adult Viral syndrome Wheezing What to Do Next Instructions from Your Care Team No qualifying data available. Post Acute Orders No qualifying data available. You Need to Schedule the Following Appointments Follow Up with MARCUS NASH MD When Within 2-4 days Where: [facility] [place] [address] [phone] Allergies Vicodin codeine sulfate Medications Please ask [...] the smoke from others. You may use bbqd-pqs-jdwpflc acetaminophen or ibuprofen for fever, muscle aching, [...] body and be dangerous to your health. Vhir-qnq-sfrykbx remedies won't shorten the length of the [...] or as directed by your healthcare provider [phone] [employer]. [address] [place] [address]. All rights reserved. This information is not intended as a substitute for professional medical care. Always follow yourhealthcare professional's instructions. Additional Information VACCINATE! IT SAVES LIVES! Members of the community who have not yet received the COVID-19 vaccine and would like to receive it can visit one of [facility] vaccine clinics. There are many vaccine clinic locations within the [facility]. For locations and available times, please visit www.[email or web address].[place].gov/. It is important to note that some COVID mobile vaccine clinics are held outdoors and may be canceled in rainy or stormy conditions. To learn more about pediatric vaccinations (ages 5-11), we invite you to visit the [facility] webpage. https://www.[facility].org/pages/6125-Srhey-Vlffjvfdptv-Bgtsqauwvr-Fvhcf-Fvz stions.htmlTo learn more about the COVID-19 vaccine, we invite you to visit the CDC website for a list of frequently asked questions. https://www.cdc.gov/coronavirus/2019-ncov/vaccines/faq.html [facility] Patient Portal Access Instructions: Stay connected with your healthcare team and access your personal medical information anytime with the [facility] Patient Portal. If you would like a full copy of your medical records please contact the [facility] Medical Records Department Monday through Monday between 8a.m. and 4:30p.m. Please follow the directions below to access the portal: 1.Access the email account you provided upon registration to the [facility].2.Look for an invitation email from [facility].3.Open the email and access the invitation link: Accept Invitation to [facility]4.Fill in the required ellis to create your account. Sign into [email or web address] with your username and password that you [...] you will allow to register on the [facility] Patient Portal for access to your information. You can also access the [facility] Patient Portal on the Healthcare Bluebook. Simply click on Health Records under [employer] and then click on the [employer] logo. HOW TO SAFELY DISPOSE OF PRESCRIPTION [...] Call your local pharmacy or go to http://Siamab [employer].Incipient/[email or web address] to find one close to you.3.Make use of household items: Use cat litter or old coffee grounds to dispose medications if other options arenot available. Mix your drugs with these household products, seal them in an airtight container andthrow it into the garbage. Call [facility]: [phone] to be sure your drugs can be [...] been reviewed and explained to me and I,CARLOS GIRON M understand my current condition and have read and understand these discharge instructions. I have received a written copy of the plan/instructions. If I have questions, I am aware that I should contact my doctor. Patient/Floor Director Signature: Date/Time: Relationship to Patient: Witness Name/Signature: Date/Time: [facility]11-07-2023 Note ORIGINAL EXAMINATION: ONE XRAY VIEW [...] Sign Date: 04/11/2023 2:18:16 PM Ordering Provider: [facility]10-13-2023 Telephone encounter Note* Telephone Encounter - Perry Mckeon MD - 03/17/2023 4:53 PM EDT Please get a follow up with Christina scheduled [id number] Miscellaneous Notes* Telephone Encounter - Perry Mckeon MD - 03/17/2023 4:53 PM EDT Please get a follow up with Christina scheduled * Telephone Encounter - Eliana Watts - 03/17/2023 11:35 AM EDT [place]: 12/15/2022 Requested Prescriptions Pending Prescriptions Disp Refills rizatriptan (Maxalt) 10 MG tablet [Pharmacy Med Name: RIZATRIPTAN 10 MG TABLET] 9 tablet 2 Sig: take 1 tablet by mouth AT ONSET OF MIGRAINE. MAY REPEAT IN 2 HOURS. MAX 3 TABLETS IN 24 HOURS documented in this [facility]10-13-2023 Telephone encounter Note* Telephone Encounter - Eliana Mac - 03/17/2023 11:35 AM EDT [place]: 12/15/2022 Requested Prescriptions Pending Prescriptions Disp Refills rizatriptan (Maxalt) 10 MG tablet [Pharmacy Med Name: RIZATRIPTAN 10 MG TABLET] 9 tablet 2 Sig: take 1 tablet by mouth AT ONSET OF MIGRAINE. MAY REPEAT IN 2 HOURS. MAX 3 TABLETS IN 24 HOURS [facility] [id number] Note. MICRO - Microbiology PROCEDURE: Urine Culture [...] Locations *1: This test was performed at: [facility], [address] [place] [address], [address] , [facility] ([place])02-18-2023 Hospital Discharge instructions Patient Education 02/18/2023 12:38:46 [...] swelling in the outer vaginal area (labia) 7176-0280 The [employer]. [address] [place] [address], [place] [address]. All rights reserved. This information is not intended as a substitute for professional medical care. Always follow yourhealthcare professional's instructions. Follow Up Care 02/18/2023 11:31:04 With:EDGAR RIZO Address: [address] [place] [address]- Business (1) [address] [place] [address]- Business (1) When:2-4 days Comments:Return to ED if symptoms worsen With:NONE PHYSICIAN Address:Unknown When:2-4 days With:Call AMB New Pt. Refferral [phone] Address:Unknown When:2-4 days [facility] 09-16-2023 Evaluation + Plan note Diagnostic Tests Pending * Urine Culture 02/18/23 [facility] 09-16-2023 Emergency department Discharge summary Discharge Instructions Thank you for allowing [facility] to assist you with your healthcare needs. [...] ED if symptoms worsen Where: [address] [place] [address]- Business (1) [address] [place] [address]- Business (1) Follow Up with NONE PHYSICIAN When Within 2-4 days Follow Up with Call AMB New Pt. Refferral [phone] When Within 2-4 days Allergies Vicodin codeine [...] swelling in the outer vaginal area (labia) 8218-3191 [employer]. [address] [place] [address]. All rights reserved. This information is not intended as a substitute for professional medical care. Always follow yourhealthcare professional's instructions. Additional Information VACCINATE! IT SAVES LIVES! Members of the community who have not yet received the COVID-19 vaccine and would like to receive it can visit one of [facility] vaccine clinics. There are many vaccine clinic locations within the [facility]. For locations and available times, please visit www.[email or web address].[place].gov/. It is important to note that some COVID mobile vaccine clinics are held outdoors and may be canceled in rainy or stormy conditions. To learn more about pediatric vaccinations (ages 5-11), we invite you to visit the [facility] webpage. https://www.[facility].org/pages/0813-Zxica-Eaqlqxdotlu-Vgyaucihvg-Auzhv-Ujv stions.htmlTo learn more about the COVID-19 vaccine, we invite you to visit the CDC website for a list of frequently asked questions. https://www.cdc.gov/coronavirus/2019-ncov/vaccines/faq.html [facility] Patient Portal Access Instructions: Stay connected with your healthcare team and access your personal medical information anytime with the [facility] Patient Portal. If you would like a full copy of your medical records please contact the [facility] Medical Records Department Monday through Monday between 8a.m. and 4:30p.m. Please follow the directions below to access the portal: 1.Access the email account you provided upon registration to the [facility].2.Look for an invitation email from [facility].3.Open the email and access the invitation link: Accept Invitation to [facility]4.Fill in the required ellis to create your account. Sign into [email or web address] App with your username and password that you [...] you will allow to register on the [facility] Patient Portal for access to your information. You can also access the [facility] Patient Portal on the Healthcare Bluebook. Simply click on Health Records under [employer] and then click on the [employer] logo. HOW TO SAFELY DISPOSE OF PRESCRIPTION [...] Call your local pharmacy or go to http://bit.Incipient/3H9In4l to find one close to you.3.Make use of household items: Use cat litter or old coffee grounds to dispose medications if other options arenot available. Mix your drugs with these household products, seal them in an airtight container andthrow it into the garbage. Call [facility]: [phone] to be sure your drugs can be [...] been reviewed and explained to me and I,CARLOS GIRON M understand my current condition and have read and understand these discharge instructions. I have received a written copy of the plan/instructions. If I have questions, I am aware that I should contact my doctor. Patient/Floor Director Signature: Date/Time: Relationship to Patient: Witness Name/Signature: Date/Time: [facility]07-17-2023 Telephone encounter Note* Telephone Encounter - Megan Mason APRN - SMASHER - 12/19/2022 12:26 PM EDT I sent a script for Aimovig to [facility]. Thank you [facility] [id number] Miscellaneous Notes* Telephone Encounter - ANTWAN Marsh CNP - 12/19/2022 12:26 PM EDT I sent a script for Aimovig to [facility]. Thank you * Telephone Encounter - Sushma West - 12/19/2022 11:11 AM EDT Patients insurance denied the request for Ajovy. Her plan prefers her try Emgality and Aimovig prior to covering Ajovy. Please route prescription of choice to [facility]. Thank you! documented in this encounterSKindred [id number] Telephone encounter Note* Telephone Encounter - Sushma West - 12/19/2022 11:11 AM EDT Patients insurance denied the request for Ajovy. Her plan prefers her try Emgality and Aimovig prior to covering Ajovy. Please route prescription of choice to [facility]. Thank you! [facility] [id number] Hospital Discharge instructions Patient Education 12/18/2022 13:11:02 [...] grows, it spreads out in a red allakaket. Because of how it looks, fungal skin [...] worse Foul-smelling fluid leaking from the skin 5937-0805 [employer]. [address] [place] [address], [place] [address]. All rights reserved. This information is not intended as a substitute for professional medical care. Always follow yourhealthcare professional's instructions. Follow Up Care 12/18/2022 12:47:17 With:PHYSICIANSNEHAL Address:Unknown When:2-4 days [facility] 07-16-2023 Note Discharge Instructions Thank you for allowing [facility] to assist you with your healthcare needs. [...] pharmacies. Medication Leaflets ketoconazole topical (misha toe MARTELLE na axel) Extina, Ketodan, Kuric, Nizoral A-D, Nizoral Topical, [...] skin products with alcohol, spices, astringents, or [place]. Avoid using other medications on the areas [...] may report side effects to FDA at 3-201-DQQ-3930. What other drugs will affect ketoconazole topical? Medicine used on the skin is not likely to be affected by other drugs you use. But many drugs can interact with each other. Tell each of your healthcare providers about all medicines you use, including prescription and ovbd-jei-ahqppth medicines, vitamins, and herbal products. Where can I get more information? Your pharmacist can provide more information about ketoconazole topical. Remember, keep this and all other medicines out of the reach of children, never share your medicines with others, and use this medication only for the indication prescribed. Every effort has been made to ensure that the information provided by [employer]. ('Multum') is accurate, up-to-date, and complete, but no guarantee is made to that effect. Drug information contained herein may be time sensitive. makexyz information has been compiled for use by healthcare practitioners and consumers in the [place] and therefore makexyz does not warrant that uses outside of the [place] are appropriate, unless specifically indicated otherwise. [employer] drug information does not endorse drugs, diagnose patients or recommend therapy. [employer] drug information isan informational resource designed to [...] effective or appropriate for any given patient. makexyz does not assume any responsibility for any aspect of healthcare administered with the aid of information makexyz provides. The information contained herein is not intended to cover all possible uses, directions, precautions, warnings, drug interactions, allergic reactions, or adverse effects. If you have questions about the drugs you are taking, check with your doctor, nurse or pharmacist. Copyright 8952-4247 Interview [employer]. Version: 5.02. Revision Date: 08/20/2019. Education Materials [...] grows, it spreads out in a red allakaket. Because of how it looks, fungal skin [...] worse Foul-smelling fluid leaking from the skin 1414-6679 [employer]. [address] [place] [address]. All rights reserved. This information is not intended as a substitute for professional medical care. Always follow yourhealthcare professional's instructions. Additional Information VACCINATE! IT SAVES LIVES! Members of the community who have not yet received the COVID-19 vaccine and would like to receive it can visit one of [facility] vaccine clinics. There are many vaccine clinic locations within the [facility]. For locations and available times, please visit www.[email or web address].[place].gov/. It is important to note that some COVID mobile vaccine clinics are held outdoors and may be canceled in rainy or stormy conditions. To learn more about pediatric vaccinations (ages 5-11), we invite you to visit the [facility] webpage. https://www.[facility].org/pages/8080-Vacrb-Vmsnfbfsgdm-Bjjbrgwerm-Relzm-Fcr stions.htmlTo learn more about the COVID-19 vaccine, we invite you to visit the CDC website for a list of frequently asked questions. https://www.cdc.gov/coronavirus/2019-ncov/vaccines/faq.html [facility] Patient Portal Access Instructions: Stay connected with your healthcare team and access your personal medical information anytime with the [facility] Patient Portal. If you would like a full copy of your medical records please contact the [facility] Medical Records Department Monday through Monday between 8a.m. and 4:30p.m. Please follow the directions below to access the portal: 1.Access the email account you provided upon registration to the [facility].2.Look for an invitation email from [facility].3.Open the email and access the invitation link: Accept Invitation to [facility]4.Fill in the required ellis to create your account. Sign into [email or web address] with your username and password that you [...] you will allow to register on the [facility] Patient Portal for access to your information. You can also access the [facility] Patient Portal on the Healthcare Bluebook. Simply click on Health Records under [employer] and then click on the [employer] logo. HOW TO SAFELY DISPOSE OF PRESCRIPTION [...] Call your local pharmacy or go to http://Siam[employer].Incipient/9I6Ov5w to find one close to you.3.Make use of household items: Use cat litter or old coffee grounds to dispose medications if other options arenot available. Mix your drugs with these household products, seal them in an airtight container andthrow it into the garbage. Call [facility]: [phone] to be sure your drugs can be [...] been reviewed and explained to me and I,CARLOS GIRON M understand my current condition and have read and understand these discharge instructions. I have received a written copy of the plan/instructions. If I have questions, I am aware that I should contact my doctor. Patient/Floor Director Signature: Date/Time: Relationship to Patient: Witness Name/Signature: Date/Time: [facility]07-13-2023 Telephone encounter Note* Telephone Encounter - Markos Gomes - 12/15/2022 5:01 PM EDT Message released to patient as written. Patient's further questions if applicable: Carlos states she would like to give herself the monthly injections. Carlos states she would like her script sent to: [id number] - [place], [place] - [address] [facility]. Carlos states she would like a call back with a status update once her scripthas been sent for awareness, because she is not due for her next injection for another month. Please contact Carlos and mahad. Were all questions from office addressed or relayed to the patient from encounter: Yes [facility] [id number] Miscellaneous Notes* Telephone Encounter - Markos Gomes - 12/15/2022 5:01 PM EDT Message released to patient as written. Patient's further questions if applicable: Carlos states she would like to give herself the monthly injections. Carlos states she would like her script sent to: [id number] - [place], [place] - [address]. Carlos states she would like a call back with a status update once her scripthas been sent for awareness, because she is not due for her next injection for another month. Please contact Carlos and advise. Were all questions from office [...] 12/15/2022 3:16 PM EDT Name of caller: Carlos Contact phone number: [phone] Relationship to Patient: patient Provider: Megan Practice: [facility] Chief Complaint/Reason for Call: pt had her [...] return their call: Yes documented in this [facility]07-13-2023 Telephone encounter Note* Telephone Encounter - ANTWAN Marsh CNP - 12/15/2022 3:45 PM EDT I gave Ajovy injection today. It is up to her. She can give the injections to herself monthly or make an appt to come into the office. I don't treat respiratory diseases. [facility] [id number] Telephone encounter Note* Telephone Encounter - Cynthia Muro - 12/15/2022 3:16 PM EDT Name of caller: Carlos Contact phone number: [phone] Relationship to Patient: patient Provider: Megan Practice: [facility] Chief Complaint/Reason for Call: pt had her [...] business hours to return their call: Yes [facility] [id number] History of Present illness Narrative* Elizabeth Brito MA - 10/06/2022 11:15 AM EDT Patient was present for Depo Provera. Patient was given IM Injection in left glute with no blood return. Patient tolerated injection well. NDC: 6821-9502-86 LOT: [id number] EXP: 11/04/2023 documented in this [facility]05-04-2023 History of Present illness Narrative* Perry Mckeon MD - 10/06/2022 9:30 AM EDT Images from the original note were not included. [facility] [address] [facility] [address] Dept: [phone] Dept Loc: [phone] Perry Mckeon MD Thank you for your [...] pain, and Bipolar 2 disorder (CMS/HCC) ([facility]). Past Surgical History: has a past surgical history that includes Appendectomy; Anterior cruciate ligament repair; Cesareansection; and Appendectomy. Medications: Current Outpatient Medications: amphetamine-dextroamphetamine (Adderall) 20 MG tablet, , Disp: , Rfl: Biotin w/ Vitamins C & E (HAIR SKIN & NAILS GUMMIES PO), Take by mouth., Disp: , Rfl: cholecalciferol (Vitamin D-3) 50 MCG (1999 [place]) tablet, Take 50 mcg by mouth [...] TSH VITAMIN B12: No results found for: [id number] FERRITIN: No results found for: FERRITIN ---- No results found for: PHENYTOIN, PHENOBARB, VALPROATE, CBMZ No components found for: TOPIRANo results found for: OXCARBAZE, OXCARB @LASTAPPOINTMENTTHISPROV@ XR FOOT STANDARD BILATERAL Narrative: Patient Name: CARLOS GIRON Diagnostic Radiology ACCESSION EXAM DATE/TIME PROCEDURE ORDERING PROVIDER [id number] 09/16/2021 13:27 EDT CR Foot Complete 3+ SOPHIE GERMAN D Views Bilateral CPT code 02334 Reason For Exam (CR Foot Complete 3+ [...] ADELE, IMMUNOGLOBUL, OLIGOBANDS No results found for: OMP95NT, HEPCAB No results found for: CRP, ANATITER, [...] and arranging for studies. documented in this [facility]05-04-2023 Telephone encounter Note* Telephone Encounter - Isabella De Santiago LPN - 10/06/2022 8:36 AM EDT pt returning call. Office called to change depo appt location Appt moved [facility] [id number] Miscellaneous Notes* Telephone Encounter - Isabella De Santiago LPN - 10/06/2022 8:36 AM EDT pt returning call. Office called to change depo appt location Appt moved documented in this [facility]11-10-2022 Evaluation + Plan note Diagnostic Tests Pending * Urine Culture 04/14/22 Future Scheduled Tests Radiology* XR Hand Minimum 3 Views Right 07/08/21 [facility] 11-10-2022 Hospital Discharge instructions Patient Education [...] breath Increased wheezing or shortness of breath 4017-3907 The [employer]. [address] [place] [address], [place] [address]. All rights reserved. This information is not [...] If needed, more treatment may be started. 7678-8273 The [employer]. [address] [place] [address], [place] [address]. All rights reserved. This information is not intended as a substitute for professional medical care. Always follow yourhealthcare professional's instructions. Follow Up Care 04/14/2022 09:35:16 With:Call MARY Copeland Pt. Refferral [phone] Address:Unknown When:2-4 days [facility] 11-10-2022 Note Discharge Instructions Thank you for allowing [facility] to assist you with your healthcare needs. The following is importantdischarge information regarding your hospital visit. Diagnosis from Today's Visit Cough Wheeze UTI - Urinary tract infection Vomiting What to Do Next Instructions from Your Care Team No qualifying data available. Post Acute Orders No qualifying data available. You Need to Schedule the Following Appointments Follow Up with Call MARY Copeland Pt. Refferral [phone] When Within 2-4 days Allergies Vicodin codeine [...] or retail pharmacies. Medication Leaflets prednisone (PRED rupert sonhal) Angel What is the most important information [...] may report side effects to FDA at 3-466-ASJ-3255. What other drugs will affect prednisone? Sometimes [...] may affect prednisone. This includes prescription and npsd-rlj-eiaygjk medicines, vitamins, and herbal products. Not all [...] to ensure that the information provided by Interview Master. ('Multum') is accurate, up-to-date, and complete, but no guarantee is made to that effect. Drug information contained herein may be time sensitive. makexyz information has been compiled for use by healthcare practitioners and consumers in the [place] and therefore makexyz does not warrant that uses outside of the [place] are appropriate, unless specifically indicated otherwise. [employer] drug information does not endorse drugs, diagnose patients or recommend therapy. [employer] drug information isan informational resource designed to [...] effective or appropriate for any given patient. makexyz does not assume any responsibility for any aspect of healthcare administered with the aid of information [facility] provides. The information contained herein is not intended to cover all possible uses, directions, precautions, warnings, drug interactions, allergic reactions, or adverse effects. If you have questions about the drugs you are taking, check with your doctor, nurse or pharmacist. Copyright 6634-5787 [facility] Centerwesync.tv. Version: 10.. Revision Date: 08/30/2018. cephalexin (sef [...] may report side effects to FDA at 5-902-JBB-6172. What other drugs will affect cephalexin? Tell your doctor about all your other medicines, especially: metformin; or probenecid. This list is not complete. Other drugs may affect cephalexin, including prescription and lxia-wzd-xmiorzz medicines, vitamins, and herbal products. Not all [...] to ensure that the information provided by Interview Master. ('Multum') is accurate, up-to-date, and complete, but no guarantee is made to that effect. Drug information contained herein may be time sensitive. makexyz information has been compiled for use by healthcare practitioners and consumers in the [place] and therefore makexyz does not warrant that uses outside of the [place] are appropriate, unless specifically indicated otherwise. [employer] drug information does not endorse drugs, diagnose patients or recommend therapy. [employer] drug information isan informational resource designed to [...] effective or appropriate for any given patient. makexyz does not assume any responsibility for any aspect of healthcare administered with the aid of information makexyz provides. The information contained herein is not intended to cover all possible uses, directions, precautions, warnings, drug interactions, allergic reactions, or adverse effects. If you have questions about the drugs you are taking, check with your doctor, nurse or pharmacist. Copyright 1822-9099 Interview Master. Version: 10.03. Revision Date: 06/08/2020. prochlorperazine (oral/injection) (pro klor PER tamera merlos) What is the most important information [...] What is prochlorperazine? Prochlorperazine is a phenothiazine (LFZN-jr-YEBS-a-zeen) antipsychotic medicine that is used to treat [...] may report side effects to FDA at 3-496-KRS-7159. What other drugs will affect prochlorperazine? Using [...] may affect prochlorperazine. This includes prescription and guno-mni-dvszaqj medicines, vitamins, and herbal products. Not all [...] to ensure that the information provided by Interview Master. ('Multum') is accurate, up-to-date, and complete, but no guarantee is made to that effect. Drug information contained herein may be time sensitive. makexyz information has been compiled for use by healthcare practitioners and consumers in the [place] and therefore makexyz does not warrant that uses outside of the [place] are appropriate, unless specifically indicated otherwise. [employer] drug information does not endorse drugs, diagnose patients or recommend therapy. [employer] drug information isan informational resource designed to [...] effective or appropriate for any given patient. [employer] does not assume any responsibility for any aspect of healthcare administered with the aid of information makexyz provides. The information contained herein is not intended to cover all possible uses, directions, precautions, warnings, drug interactions, allergic reactions, or adverse effects. If you have questions about the drugs you are taking, check with your doctor, nurse or pharmacist. Copyright 0995-3694 Interview Master. Version: 12.. Revision Date: 09/27/2019. albuterol inhalation [...] may report side effects to FDA at 6-513-OSZ-4505. What other drugs will affect albuterol inhalation? [...] may affect albuterol inhalation, including prescription and uzxu-ifh-hwrbipo medicines, vitamins, and herbal products. Not all [...] to ensure that the information provided by Interview Master. ('Multum') is accurate, up-to-date, and complete, but no guarantee is made to that effect. Drug information contained herein may be time sensitive. makexyz information has been compiled for use by healthcare practitioners and consumers in the [place] and therefore makexyz does not warrant that uses outside of the [place] are appropriate, unless specifically indicated otherwise. make[employer]'s drug information does not endorse drugs, diagnose patients or recommend therapy. [employer] drug information isan informational resource designed to [...] effective or appropriate for any given patient. [employer] does not assume any responsibility for any aspect of healthcare administered with the aid of information makexyz provides. The information contained herein is not intended to cover all possible uses, directions, precautions, warnings, drug interactions, allergic reactions, or adverse effects. If you have questions about the drugs you are taking, check with your doctor, nurse or pharmacist. Copyright 7874-2042 Interview Master. Version: 10.. Revision Date: 04/22/2020. Education Materials [...] (influenza vaccine). When to seek medical advice [facility]11-10-2022 Note ORIGINAL EXAMINATION: ONE XRAY VIEW [...] Date: 04/14/2022 10:45:23 AM Ordering Provider: AUBREY [facility]11-10-2022 Note ORIGINAL EXAMINATION: ONE XRAY VIEW [...] Date: 04/14/2022 10:45:23 AM Ordering Provider: AUBREY [facility]08-10-2022 Hospital Discharge instructions Patient Education 01/12/2022 21:42:05 [...] information Smokefree.gov. Go to smokefree.gov or call 824-VDIQ-ZBC ([phone]). National [employer] Smoking Quitline. Go to [employer]/hfb-zndm-ckj or call 532-15A-XDKR([phone]). 9243-0548 [employer]. [address] [place] [address]. All rights reserved. This information is not intended as a substitute for professional medical care. Always follow yourhealthcare professional's instructions. 01/12/2022 21:41:51 Acute Sinusitis Acute [...] is gone, even if you feel better. 7842-1095 [employer]. [address] [place] [address]. All rights reserved. This information is not intended as a substitute for professional medical care. Always follow yourhealthcare professional's instructions. Follow Up Care 01/12/2022 21:34:31 With:EDGAR RIZO MD Address: [address] [place] [address]- When:2-4 days With:Call Physician Referral Address:Unknown When:2-4 days [facility] 08-10-2022 Note Discharge Instructions Thank you for allowing [facility] to assist you with your healthcare needs. [...] When Within 2-4 days Where: [place] [address]- Follow Up with Call Physician [...] (DME MISCellaneous) TENS UNIT Chronic neck pain [facility] TENS UNIT E0730 REDUCING CHRONIC INTRACTABLE PAIN, [...] information Smokefree.gov. Go to smokefree.gov or call 988-ZELP-MNZ ([phone]). National Cancer [employer] Smoking Quitline. Go to [employer]/ffy-wqqo-rne or call [phone]-EYLM([phone]). 7819-4579 [employer]. [address] [place] [address]. All rights reserved. This information is not [...] is gone, even if you feel better. 8158-2907 [employer]. [address] [place] [address], [place] [address]. All rights reserved. This information is not intended as a substitute for professional medical care. Always follow yourhealthcare professional's instructions. Additional Information VACCINATE! IT SAVES LIVES! Members of the community who have not yet received the COVID-19 vaccine and would like to receive it can visit one of [facility] vaccine clinics. There are many vaccine clinic locations within the [facility]. For locations and available times, please visit [email or web address]. It is important to note that some COVID mobile vaccine clinics are held outdoors and may be canceled in rainy orstormy conditions. To learn more about pediatric vaccinations (ages 5-11), we invite you to visit the [facility] webpage. https://www.[facility].org/pages/0897-Yqmsh-Xfelhuhlqwt-Eakaklcjyz-Plnpe-Ebb stions.htmlTo learn more about the COVID-19 vaccine, we invite you to visit the [facility] website for a list of frequently asked questions. https://[email or web address]/assets/Mjbdvkpj-isr-Ropirhpu/pgpdt-Bdsxckt-Ubzkyzukdp _Asked-Questions.pdf [facility] Patient Portal Access Instructions: Stay connected with your healthcare team and access your personal medical information anytime with the [facility] Patient Portal. If you would like a full copy of your medical records please contact the [facility] Medical Records Department Monday through Monday between 8a.m. and 4:30p.m. Please follow the directions below to access the portal: 1.Access the email account you provided upon registration to the [facility].2.Look for an invitation email from [facility].3.Open the email and access the invitation link: Accept Invitation to [employer]4.Fill in the required ellis to create your account. Sign into [email or web address] with your username and password that you [...] you will allow to register on the [employer] Patient Portal for access to your information. You can also access the [employer] Patient Portal on the Healthcare Bluebook. Simply click on Health Records under [employer] and then click on the [employer] logo. HOW TO SAFELY DISPOSE OF PRESCRIPTION [...] Call your local pharmacy or go to http://bit.ly/4K8Yn9k to find one close to you.3.Make use of household items: Use cat litter or old coffee grounds to dispose medications if other options arenot available. Mix your drugs with these household products, seal them in an airtight container andthrow it into the garbage. Call [facility]: [phone] to be sure your drugs can be [...] been reviewed and explained to me and I,CARLOS GIRON M understand my current condition and have read and understand these discharge instructions. I have received a written copy of the plan/instructions. If I have questions, I am aware that I should contact my doctor. Patient/Floor Director Signature: Date/Time: Relationship to Patient: Witness Name/Signature: Date/Time: [facility]07-28-2022 Hospital Discharge instructions Patient Education 12/30/2021 [...] with soap and water or use alcohol-based pipe finishing supervisor to prevent the spread of infection. Wash your hands after touching anyone who is sick. Wash your hands or use alcohol-based pipe finishing supervisor after using the toilet and before meals. [...] Keep uncooked meats away from cooked and ndman-fn-xpg foods. Medicine You may use acetaminophen or [...] directed by your healthcare provider Min dietz [phone] [employer]. [address] [place] [address], [place] [address]. All rights reserved. This information is not intended as a substitute for professional medical care. Always follow yourhealthcare professional's instructions. Follow Up Care 12/30/2021 00:34:03 With:Follow up with primary care provider Address:Unknown When:2-4 days [facility] 07-28-2022 Note Discharge Instructions Thank you for allowing [facility] to assist you with your healthcare needs. [...] (DME MISCellaneous) TENS UNIT Chronic neck pain [facility] TENS UNIT E0730 REDUCING CHRONIC INTRACTABLE PAIN, [...] with soap and water or use alcohol-based pipe finishing supervisor to prevent the spread of infection. Wash your hands after touching anyone who is sick. Wash your hands or use alcohol-based pipe finishing supervisor after using the toilet and before meals. [...] Keep uncooked meats away from cooked and ppzlj-ab-vtj foods. Medicine You may use acetaminophen or [...] directed by your healthcare provider Min dietz [phone] [employer]. [address] [place] [address]. All rights reserved. This information is not intended as a substitute for professional medical care. Always follow yourhealthcare professional's instructions. Additional Information VACCINATE! IT SAVES LIVES! Members of the community who have not yet received the COVID-19 vaccine and would like to receive it can visit one of [facility] vaccine clinics. There are many vaccine clinic locations within the [facility]. For locations and available times, please visit [email or web address]. It is important to note that some COVID mobile vaccine clinics are held outdoors and may be canceled in rainy orstormy conditions. To learn more about pediatric vaccinations (ages 5-11), we invite you to visit the [facility] webpage. https://www.[facility].org/pages/5623-Jcfqc-Svrkblvufrk-Ppmbowlslb-Ocbly-Mqd stions.htmlTo learn more about the COVID-19 vaccine, we invite you to visit the [facility] website for a list of frequently asked questions. https://[email or web address]/assets/Mfkzklps-cnj-Pycdieqa/agjnl-Mpqbzjw-Lhhpbmbyki _Asked-Questions.pdf [facility] Patient Portal Access Instructions: Stay connected with your healthcare team and access your personal medical information anytime with the [facility] Patient Portal. If you would like a full copy of your medical records please contact the [facility] Medical Records Department Monday through Monday between 8a.m. and 4:30p.m. Please follow the directions below to access the portal: 1.Access the email account you provided upon registration to the [facility].2.Look for an invitation email from [facility].3.Open the email and access the invitation link: Accept Invitation to [employer]4.Fill in the required ellis to create your account. Sign into [email or web address] with your username and password that you [...] you will allow to register on the [facility] Patient Portal for access to your information. You can also access the [facility] Patient Portal on the [employer] asher. Simply click on Health Records under [employer] and then click on the [employer] logo. HOW TO SAFELY DISPOSE OF PRESCRIPTION [...] Call your local pharmacy or go to http://Siamab [employer]rapeutics.Incipient/7W6Vy1f to find one close to you.3.Make use of household items: Use cat litter or old coffee grounds to dispose medications if other options arenot available. Mix your drugs with these household products, seal them in an airtight container andthrow it into the garbage. Call [facility]: [phone] to be sure your drugs can be [...] been reviewed and explained to me and I,CARLOS GIRON M understand my current condition and have read and understand these discharge instructions. I have received a written copy of the plan/instructions. If I have questions, I am aware that I should contact my doctor. Patient/Floor Director Signature: Date/Time: Relationship to Patient: Witness Name/Signature: Date/Time: [facility]07-28-2022 Note Discharge Instructions Thank you for allowing [facility] to assist you with your healthcare needs. [...] with soap and water or use alcohol-based pipe finishing supervisor to prevent the spread of infection. Wash your hands after touching anyone who is sick. Wash your hands or use alcohol-based pipe finishing supervisor after using the toilet and before meals. [...] Keep uncooked meats away from cooked and xpzzj-ka-goa foods. Medicine You may use acetaminophen or [...] directed by your healthcare provider Min dietz 5974-1577 [employer]. [address] [place] [address]. All rights reserved. This information is not intended as a substitute for professional medical care. Always follow yourhealthcare professional's instructions. Additional Information VACCINATE! IT SAVES LIVES! Members of the community who have not yet received the COVID-19 vaccine and would like to receive it can visit one of [facility] vaccine clinics. There are many vaccine clinic locations within the [facility]. For locations and available times, please visit [email or web address]. It is important to note that some COVID mobile vaccine clinics are held outdoors and may be canceled in rainy orstormy conditions. To learn more about pediatric vaccinations (ages 5-11), we invite you to visit the [facility] webpage. https://www.[facility].org/pages/7065-Rjhqy-Gdygqyhscvh-Navrwonqes-Yorya-Gou stions.htmlTo learn more about the COVID-19 vaccine, we invite you to visit the [employer] website for a list of frequently asked questions. https://Cubiez.ShopEx/assets/Kfpimuqa-dnl-Ykqodkut/sjdsa-Hhdzllo-Rdipelqvge _Asked-Questions.pdf [facility] Patient Portal Access Instructions: Stay connected with your healthcare team and access your personal medical information anytime with the [facility] Patient Portal. If you would like a full copy of your medical records please contact the [facility] Medical Records Department Monday through Monday between 8a.m. and 4:30p.m. Please follow the directions below to access the portal: 1.Access the email account you provided upon registration to the [facility].2.Look for an invitation email from [facility].3.Open the email and access the invitation link: Accept Invitation to [facility]4.Fill in the required ellis to create your account. Sign into [email or web address] with your username and password that you [...] you will allow to register on the [facility] Patient Portal for access to your information. You can also access the [facility] Patient Portal on the [employer] asher. Simply click on Health Records under [employer] and then click on the Domingo logo. HOW TO SAFELY DISPOSE OF PRESCRIPTION [...] Call your local pharmacy or go to http://bit.ly/2H6Lg3q to find one close to you.3.Make use of household items: Use cat litter or old coffee grounds to dispose medications if other options arenot available. Mix your drugs with these household products, seal them in an airtight container andthrow it into the garbage. Call [facility]: [phone] to be sure your drugs can be [...] been reviewed and explained to me and I,CARLOS GIRON M understand my current condition and have read and understand these discharge instructions. I have received a written copy of the plan/instructions. If I have questions, I am aware that I should contact my doctor. Patient/Floor Director Signature: Date/Time: Relationship to Patient: Witness Name/Signature: Date/Time: [facility]02-18-2022 Evaluation + Plan note Diagnostic Tests Pending * Vitamin B12 Level 07/23/21 * Antinuclear Antibody Screen, Serum 07/23/21 * Rheumatoid Factor 07/23/21 Future Scheduled Tests Radiology* XR Hand Minimum 3 Views Right 07/08/21 * XR Spine Lumbar AP/LAT 11/18/20 [facility] 02-03-2022 Evaluation + Plan note Future Scheduled Tests Radiology* XR Hand Minimum 3 Views Right 07/08/21 [facility] 02-25-2021 NoteHNO ID: [id number] Author: Sid Lima Service: ? Author Type: Physician Type: [...] of anterior cruciate ligament ACL tear [facility] MED[facility] HISTORY OF 04/24/09 normal [...] CONSULT TO ENT - established patient with [facility], facilitated appointment this afternoon. Sid Lima, [facility] note Author Rafael Whiting [facility] Note Date/Time December 16, 2024 6:28 am [facility] Medical Records Department [address] [place] [address] Pre-Anesthesia Evaluation 12/16/24 0622 MR#: [id number] Acct: [id number] Name: CARLOS GIRON Rep #:[id number] : 1990 34 From: Rafael Whiting MD PCP: Dr. Nataliya Gomez MD Status:REG SD C Y Race: C Location: [place] [address] ASA Classification* ASA Classification ASA Classification: 2 Assessment & Plan Anesthesia* Anesthesia Assessment Anesthesia Assessment: Discussed sedation and/or anesthesia options, risks, benefits, and alternatives with patient/parents/legal guardian/POA. Questions invited. The patient/parents/legal guardian/POA seems to understand and agrees to proceedwith anesthesia plan. Reviewed the physical assessment, medical history, allergy history and patient home medications list prior to surgery/procedure/anesthetic and documented any changes. Performed airway and anesthesia risk assessments. Anesthesia Type Anesthesia Type: MAC History Source History Obtained from:: Patient and Chart Anesthesia Focused Assessment* Temperature: 97.6 F Pulse Rate: 80 Blood Pressure: 109/71 Respiratory Rate: 17 Pulse Ox: 97 Oxygen Delivery Method: Room Air Airway Assessment Mouth opens: >3 cm Mallampati Score: II Teeth Condition: Intact Neck Range of motion (ROM): Full ROM Labs Anesthesia Preop lab: CBC WBC 8.2 K/mm3 (4.4-11.0) 11/08/24 11:25 11/08/24 RBC 4.30 M/mm3 (4.2-5.4) 11/08/24 11:25 11/08/24 Hgb 14.2 g/dL (12.0-15.0) 11/08/24 11:25 11/08/24 Hct 42.9 % (37-47) 11/08/24 11:25 11/08/24 Plt Count 222 K/mm3 (150-450) 11/08/24 11:25 11/08/24 CHEMISTRY Potassium 3.6 mmol/L (3.3-5.1) 11/08/24 12:21 11/08/24 Sodium 138 mmol/L (133-145) 11/08/24 11:25 11/08/24 Magnesium 2.0 mg/dL (1.5-2.2) 10/24/24 11:43 10/24/24 Phosphorus 2.8 mg/dL (2.7-4.5) 10/24/24 11:43 10/24/24 BUN 9 mg/dL (4-19) 11/08/24 11:25 11/08/24 Creatinine 0.77 mg/dL (0.70-1.20) 11/08/24 11:25 11/08/24 Glucose 98 mg/dL (70-99) 11/08/24 11:25 11/08/24 TSH 0.666 uIU/mL (0.300-4.200) 11/08/24 11:25 0611/27 COAG PT 12.7 SECONDS (11.7-14.9) 12/28/13 03:00 HCG, Quant < 1 mIU/mL (1-3) 05/20/19 14:58 05/20/19 Urine Test Negative Negative 12/16/24 05:57 12/16/24 Pre-Assessment Diagnosis/Proposed Procedure Planned Operative Procedure(s): EGD Anesthesia History 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 When Was Last Pacemaker Check QUESTION #4 FULL TEXT: You/Your Family Experience fever (hyperthermia) with Anesthesia Last Oral Intake Last Oral intake: Last Oral Intake NPO since 02:30 12/16/24 06:08 Meds taken in AM with sips of No 12/16/24 06:08 water? Meds patient instructed to take am of surgery PONV PONV - junior mechanical engineer: PONV - junior mechanical engineer Female Yes 12/13/24 08:38 HX of Motion Sickness No 12/13/24 08:38 HX of N/V After Surgery No 12/13/24 08:38 Non-Smoker No 12/13/24 08:38 Duration of Surgery greater No 12/13/24 08:38 than 60 minutes Number of Risk Factors 1 12/13/24 08:38 PONV Score Low Risk 12/13/24 08:38 Height & Weight Height & Weight: Anesthesia: Height & Weight Height 5 ft 6 in 12/16/24 06:08 Weight: 107 kg 12/16/24 06:08 Body Mass Index (BMI) 38.0 12/16/24 06:08 Respiratory Assessment Respiratory Assessment - junior mechanical engineer: Respiratory Tract Infection Hx - junior mechanical engineer Hx Respiratory Tract Infection No 12/13/24 08:38 STOP Sleep Apnea STOP Sleep Apnea - junior mechanical engineer: STOP Sleep Apnea - junior mechanical engineer Hx Hypertension No 12/13/24 08:38 Hx Sleep Apnea No 12/13/24 08:38 CPAP BIPAP Do you snore loudly (louder No 12/13/24 08:38 than talking or can be heard Do you often feel tired/ Yes 12/13/24 08:38 fatigued/ sleepy during daytime? Has anyone observed you stop No 12/13/24 08:38 breathing during sleep? STOP Results Negative 12/13/24 08:38 QUESTION #5 FULL TEXT : Do you snore loudly (louder than talking or can be heard through closed doors)? 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 confused, unrespo /Reproduction History /Reproductive History - junior mechanical engineer: /Reproductive Hx- junior mechanical engineer Hx Now No 12/13/24 08:38 Gestational Age (in weeks): EDC: Hx Hx Para Hx Section SAB No 12/13/24 08:38 Active Medications Active Medications: Current Medications Generic Name Dose Route Start Last Admin Trade Name Freq PRN Reason Stop Dose Admin Lactated Ringer's 1,000 mls @ 15 mls/hr 12/16/24 06:00 12/16/24 06:08 IV 15 mls/hr .Q48H KAR Administration PFSH Medical History ADHD Marijuana use Arthritis Fatty liver Easy bruising Leg cramps Migraine headache Gastric reflux Shortness of breath on exertion Smoker History of pain when walking History of echocardiogram IBS (irritable bowel syndrome) Bipolar disorder Low back pain Depression Anxiety Home Medications ?Medication ?Instructions ?Recorded ?Last Taken ?Type biotin 2,500 mcg chewable tablet 2,500 mcg PO DAILY 12/15/24 History dextroamphetamine-amphetamine 30 30 mg PO QDAY 5 12/15/24 History mg tablet (Adderall) gabapentin 600 mg tablet 800 mg PO TID 10/24/2412/16 History lamotrigine 150 mg tablet 100 mg PO QHS 10/24/2412/15 History omeprazole 40 mg capsule,delayed 40 mg PO QDAY 5 12/16/24 History release promethazine 12.5 mg tablet 12.5 mg PO Q6H PRN nausea and 10/24/24 Unknown History vomiting rifaximin 550 mg tablet (Xifaxan) 550 mg PO TID 12/15/24 History zolpidem 10 mg tablet (Ambien) 10 mg PO QHS 10/24/24 0 12/15/24 History prochlorperazine maleate 10 mg 10 mg PO Q8H PRN nausea and 11/04/24 Unknown Rx tablet (Compazine) vomiting #30 tabs dicyclomine 20 mg tablet 20 mg PO TID #90 tabs 12/16/24 Rx prochlorperazine 25 mg rectal 25 mg [place] BID PRN nausea and 11/28/24 Unknown Rx suppository (Compazine) vomiting #12 ea albuterol sulfate 90 mcg/actuation 2 puff inhalation 4 X/DAY PRN PRN 12/12/24 Unknown History aerosol inhaler shortness of breath or wheez ing atogepant 60 mg tablet (Qulipta) 60 mg PO DAILY 12/16/24 History cholecalciferol (vitamin D3) 50 50 mcg PO DAILY 12/15/24 History mcg (2,000 unit) tablet (Vitamin D3) drospirenone 3 mg-ethinyl 1 tab PO DAILY 12/12/2412/03 History estradiol 0.03 mg tablet (Zainab) oxybutynin chloride 10 mg 10 mg PO DAILY 12/12/2412/03 History tablet,extended release 24 hr tizanidine 4 mg tablet 4 mg PO QHS 12/12/24 5 History Allergy/AdvReac Type Severity Reaction Status Date / Time ibuprofen AdvReac Intermediate Hives Verified 12/16/24 06:06 codeine AdvReac Upset Verified 12/16/24 06:06 Stomach hydrocodone bitartrate (From AdvReac Upset Verified 12/16/24 06:06 Vicodin) Stomach Surgical History (Updated 12/13/24 @ 08:48 by Genoveva Benitez) History of History of appendectomy Hx of knee surgery Social History (Updated 10/24/24 @ 10:56 by Meme Suazo) housing: apartment current occupational status: disabled Smoking Status: Current every day smoker tobacco type: cigarettes alcohol intake: never substance use type: marijuana what type of physical activity do you participate in: walking Review of Systems (Anesthesia) ROS Narrative System reviewed and no additional complaints, except as documented. Physical Exam Const alert and oriented x3 Neck full ROM Cardio regular rate and regular rhythm Back/Spine normal ROM Extremity full ROM Neuro oriented x3 and moves all extremities 12/16/2428 <Electronically signed by Rafael Soto> Date _ Rafael Whiting MD Cosign Signature: Date CC: ~ Signed [facility] Work Phone: Consult note Author AA Owen Grace [facility] Note Date/Time December 16, 2024 7:38 am [facility] Medical Records Department [address] [place] [address] Anesthesia Postop Eval I 12/16/24 0710 MR#: [id number] Acct: [id number] Name: CARLOS GIRON Rep #:[id number] : 1990 34 From: Owen Grace PCP: Dr. Nataliya Gomez MD Status:REG SD C Y Race: C Location: [place] [address] Anesthesia: Postop Eval I Current Vital Signs Temperature: 97 F Pulse Rate: 86 Blood Pressure: 120/103 Respiratory Rate: 16 Pulse Ox: 98 Oxygen Delivery Method: Room Air Assessment Airway patent: Yes Spontaneous unlabored respirations: Yes Mental status: Awake and Calm nausea: No Vomiting: No Anesthesia Complication: No Fluid Hydration Crystalloid volume administer (ml): 300 Total IV fluid infused: 300 Progress Note Anesthesia document: Postop Eval 1 completed: Yes 12/16/24 0710 <Electronically signed by Owen Grace > Date _ Owen Lovettignalexis Signature: Date CC: ~ Signed [facility] Work Phone: Evaluation + Plan note Future Appointments Appointment Date:03/30/2021 08:45:00 AM Scheduled Provider:TEMO FRANCO MD Location:[facility] PM 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 Appointment Date:06/21/2021 10:35:00 AM Scheduled Provider:BEBA HUMPHREYS DO Location:[facility] Appointment Type: OV Future Scheduled Tests Laboratory* C-Reactive Protein 11/11/20 * Stool for Occult Blood (Lab) 07/20/20 * Thyroid Stimulating Hormone 11/11/20 * Vitamin B12 Level 11/11/20 * Complete Blood Count 07/20/20 * Lamotrigine Level 07/20/20 * Urine test (LAB) 05/01/20 * Vitamin D Level 11/11/20 * Complete Metabolic Panel 07/20/20 Radiology* XR Spine Lumbar AP/LAT 11/18/20 [facility] Evaluation + Plan note Future Appointments [facility] Evaluation note* Diagnosis Right-sided temporomandibular joint pain-dysfunction syndrome- Primary documented in this encounter [facility] Work Phone: Evaluation note* Diagnosis Intractable chronic migraine without aura and without status migrainosus- Primary Medication overuse headache Drug induced headache, not elsewhere classified [facility] information [facility] Work Phone: Evaluation note* Diagnosis Intractable chronic migraine without aura and without status migrainosus- Primary [facility]* Diagnosis Intractable chronic migraine without aura and without status migrainosus [facility]* Diagnosis Intractable chronic migraine without aura and without status migrainosus- Primary [facility] Diagnosis Encounter for surveillance of injectable contraceptive [facility] Diagnosis Intractable chronic migraine without aura and without status migrainosus- Primary [facility]* Diagnosis Encounter for surveillance of contraceptive pills [facility]* Diagnosis Encounter for surveillance of contraceptive pills Cervical cancer screening Screening for malignant neoplasm of the cervix Well woman exam with routine gynecological exam Routine gynecological examination [facility] Diagnosis Well woman exam with routine gynecological exam- Primary Routine gynecological examination Dysuria Cervical cancer screening Screening for malignant neoplasm of the cervix Vaginal itching Pruritus of genital organs Stress incontinence of urine [facility] Diagnosis Encounter for surveillance of contraceptive pills [facility]* Diagnosis Intractable chronic migraine without aura and without status migrainosus- Primary [facility]* Diagnosis Intractable chronic migraine without aura and without status migrainosus- Primary [facility]* Diagnosis Weight gain- Primary Other symptoms concerning nutrition, metabolism, and development Encounter for initial prescription of contraceptive pills [facility]* Diagnosis Intractable chronic migraine without aura and without status migrainosus- Primary [facility]* Diagnosis Oropharyngeal candidiasis- Primary Candidiasis of mouth Laryngopharyngeal reflux (LPR) Oral thrush Candidiasis of mouth Throat discomfort Throat pain Throat clearing Other symptoms involving head and neck documented in this encounter [facility] Work Phone: Evaluation note* Diagnosis Throat discomfort- Primary Throat pain Oral thrush Candidiasis of mouth Laryngopharyngeal reflux (LPR) Throat clearing Other symptoms involving head and neck documented in this encounter [facility] Work Phone: History and physical note Author Moses Montalvo [facility] Note Date/Time December 16, 2024 6:44 am [facility] Medical Records Department [address] [place] [address] History & Physical Exam 12/16/24 0642 MR#: [id number] Acct: [id number] Name: CRALOS GIRON Rep #:[id number] : 1990 34 From: Moses Montalvo DO PCP: Dr. Nataliya Gomez MD Status:REG SD C Location: [place] [address] HPI - General General Date of Admission: 12/16/24 Date of Service: 12/16/24 Chief Complaint: Nausea, vomiting and diarrhea HPI Narrative CARLOS GIRON, is a 34 F who presents for the evaluation of nausea, vomiting andoccasional diarrhea. *BGI established 5.22.25 pt reports long history [...] take for the prep made her sick. [facility] Medical History ADHD Marijuana use Arthritis Fatty liver Easy bruising Leg cramps Migraine headache Gastric reflux Shortness of breath on exertion Smoker History of pain when walking History of echocardiogram IBS (irritable bowel syndrome) Bipolar disorder Low back pain Depression Anxiety Home Medications ?Medication ?Instructions ?Recorded ?Last Taken ?Type biotin 2,500 mcg chewable tablet 2,500 mcg PO DAILY 12/15/24 History dextroamphetamine-amphetamine 30 30 mg PO QDAY 5 12/15/24 History mg tablet (Adderall) gabapentin 600 mg tablet 800 mg PO TID 10/24/2412/16 History lamotrigine 150 mg tablet 100 mg PO QHS 10/24/2412/15 History omeprazole 40 mg capsule,delayed 40 mg PO QDAY 5 12/16/24 History release promethazine 12.5 mg tablet 12.5 mg PO Q6H PRN nausea and 10/24/24 Unknown History vomiting rifaximin 550 mg tablet (Xifaxan) 550 mg PO TID 12/15/24 History zolpidem 10 mg tablet (Ambien) 10 mg PO QHS 10/24/24 0 12/15/24 History prochlorperazine maleate 10 mg 10 mg PO Q8H PRN nausea and 11/04/24 Unknown Rx tablet (Compazine) vomiting #30 tabs dicyclomine 20 mg tablet 20 mg PO TID #90 tabs 12/16/24 Rx prochlorperazine 25 mg rectal 25 mg IL BID PRN nausea and 11/28/24 Unknown Rx suppository (Compazine) vomiting #12 ea albuterol sulfate 90 mcg/actuation 2 puff inhalation 4 X/DAY PRN PRN 12/12/24 Unknown History aerosol inhaler shortness of breath or wheez ing atogepant 60 mg tablet (Qulipta) 60 mg PO DAILY 12/16/24 History cholecalciferol (vitamin D3) 50 50 mcg PO DAILY 12/15/24 History mcg (2,000 unit) tablet (Vitamin D3) drospirenone 3 mg-ethinyl 1 tab PO DAILY 12/12/2412/03 History estradiol 0.03 mg tablet (Zainab) oxybutynin chloride 10 mg 10 mg PO DAILY 12/12/2412/03 History tablet,extended release 24 hr tizanidine 4 mg tablet 4 mg PO QHS 12/12/24 5 History Allergy/AdvReac Type Severity Reaction Status Date / Time ibuprofen AdvReac Intermediate Hives Verified 12/16/24 06:06 codeine AdvReac Upset Verified 12/16/24 06:06 Stomach hydrocodone bitartrate (From AdvReac Upset Verified 12/16/24 06:06 Vicodin) Stomach Surgical History History of History of appendectomy Hx of knee surgery Social History housing: apartment current occupational status: disabled Smoking Status: Current every day smoker tobacco type: cigarettes alcohol intake: never substance use type: marijuana what type of physical activity do you participate in: walking ROS Constitutional Constitutional: Denies fatigue, fever(s), poor appetite, weight gain or weight loss Gastrointestinal Gastrointestinal: Denies belching, bloating, change in bowel habits, change in stool character, chewing difficulty, coffee ground emesis, constipation, cramping, diarrhea, dyspepsia, dysphagia, early satiety, excessive flatus, fecalincontinence, heartburn, hematemesis, hematochezia, hemorrhoids, loose stools, melena, nausea, odynophagia, rectal bleeding, tenesmus, vomiting or weight changes Vital Signs Vital Signs Vital Signs: 12/16/24 06:08 12/16/24 06:08 12/16/24 06:23 Temperature 97.6 F L 97.6 F L Temperature Source Temporal Pulse Rate 80 80 Respiratory Rate 17 17 Respiratory Pattern Normal Blood Pressure 109/71 109/71 Blood Pressure Mean 83 Blood Pressure Source Monitor Blood Pressure Position Semi-Fowlers Blood Pressure Location Left Arm Pulse Ox 97 97 Oxygen Delivery Method Room Air Room Air Weight Weight: 235 lb 14.314 oz Body Mass Index (BMI) 38.0 Physical Exam Const alert, oriented x3, no apparent distress and healthy appearing General Appearance: cooperative GI normal to inspection, nondistended, normoactive bowel sounds, soft to palpation,non-tender and non-distended Percussion: normal to percussion Rectal Exam: deferred Results Lab / Micro Data Labs: Laboratory Results - last 24 hr 12/16/24 05:57: Urine Test Negative Assessment & Plan Assessment/Plan (1) Abdominal pain: (2) Diarrhea: (3) IBS (irritable bowel syndrome): PLAN: Assessment and Plan Assessment and Plan (1) [...] and we will also order gallbladder ultrasound andHIDA scan with CCK. Orders: Orders Celiac Disease [...] - Diarrhea, unspecified Amylase Today R10.9 - Unspecified abdominal pain, R19.7 - Diarrhea, unspecified CPK Total, Creatine Kinase Today R10.9 - Unspecified abdominal pain, R19.7 - Diarrhea, unspecified FRIEDA Comprehensive Panel Today R10.9 - Unspecified abdominal pain, R19.7 - Diarrhea, unspecified ADELE + Protein Elect, Serum Today R10.9 - Unspecified abdominal pain, R19.7 - Diarrhea, unspecified Erythropoietin Today R10.9 - Unspecified abdominal pain, R19.7 - Diarrhea, unspecified JAK2 Mutation Analysis Today R10.9 - Unspecified abdominal pain, R19.7 - Diarrhea, unspecified IBD Expanded Profile Today R10.9 - Unspecified abdominal pain, R19.7 - Diarrhea, unspecified Allergen, Food Profile Today R10.9 - Unspecified abdominal pain, R19.7 - Diarrhea, unspecified Gastrin, Serum Today R10.9 - Unspecified abdominal pain, R19.7 - Diarrhea, unspecified Vitamin B12 Today R10.9 - Unspecified abdominal pain, R19.7 - Diarrhea, unspecified Magnesium Today R10.9 - Unspecified abdominal pain, R19.7 - Diarrhea, unspecified Phosphorus Today R10.9 - Unspecified abdominal pain, R19.7 - Diarrhea, unspecified Comprehensive Metabolic Profil Today R10.9 - Unspecified abdominal pain, R19.7 - Diarrhea, unspecified CBC W/Diff, Automated Today R10.9 - Unspecified abdominal pain, R19.7 - Diarrhea, unspecified Chromogranin A Today R10.9 - Unspecified abdominal pain, R19.7 - Diarrhea, unspecified Catecholamines, Plasma Today R10.9 - Unspecified abdominal pain, R19.7 - Diarrhea, unspecified Hepatobilliary Img w/Pharm Int Today R10.9 - Unspecified abdominal pain, R19.7 - Diarrhea, unspecified ABD Limited w/ Elastography Today R10.9 - Unspecified abdominal pain, R19.7 - Diarrhea, unspecified Gastric Emptying Study Today R10.9 - Unspecified abdominal pain, R19.7 - Diarrhea, unspecified Medications: Discontinued prednisone Discontinued Reason: Pt no longer taking 60 mg (3 x 20 mg) PO DAILY 15 tabs 0RF ondansetron Discontinued Reason: Pt no longer taking 4 mg PO Q8H PRN PRN 10 tabs Nausea 12/16/24 0644 <Electronically signed by Moses Montalvo DO> Cosigner Signature (if applicable): CC: Dr. Nataliya Gomez MD; Moses Montalvo DO~ Signed [facility] Work Phone: Hospital course Narrative No data available for this section [facility] Discharge instructions No data available for this section [facility] Discharge instructions* Attachments The following attachments cannot be sent through Care Everywhere. * TMD (Temporomandibular Disorder) (Cypriot) documented in this [facility] Work Phone: Hospital Discharge instructions Additional Instructions Strep negative. Throat culture pending. Wet prep negative GC chlamydia pending. Finish steroids as prescribed. Follow-up with Dr. Villarreal. You will be contacted if any cultures are positive.[facility] Work Phone: Progress note No data available for this section [facility] Reason for referral (narrative)No reason for referral information availableWMagruder Hospital Work Phone: Summary Purpose Family History [...] Will No May 22 10:23pm Power of Developer Relations Manager No May 22, 2020 10:23pm Advance Directive Response Recorded Date/ Time Advance Directives No December 20 10:27am Advance Directive Response Recorded Date/ Time Do you have a Healthcare Power of Developer Relations Manager? No October 23, 2024 1:56pm Advance Directives No December 20 10:27am Advance Directive Response Recorded Date/ Time Do you have a Healthcare Power of Developer Relations Manager? No October 23, 2024 1:56pm Do you have a Healthcare Power of Developer Relations Manager? No December 13, 2024 8:38am Advance Directives No December 20 10:27am Reason for Referral Specialty Diagnoses / Procedures Referred By Ariadna ramirez Referred To Contact Physical Therapy Diagnoses Stress incontinence of urine Procedures [place] OFFICE/OUTPATIENT NEW HIGH MDM 60 MINUTES Valeri Kwok MD [address] [place] [address] [place] [address] Referral ID Status Reason Start Date Expiration Date Visits Requested Visits Authorized [id number] Pending Review Eval and Treat 12/13/2023 12/07/2024 99 99 Specialty Diagnoses / Procedures Referred By Ariadna ramirez Referred To Contact Diagnoses Intractable chronic migraine without aura and without status migrainosus Megan Mason, [employer]IGH [employer]UCATION TE[employer]ER - SMASHER [address] [place] [address] Referral ID Status Reason Start Date Expiration Date V isits Requested Visits Authorized [id number] Pending Review 06/21/2023 06/15/2024 1 1 Specialty Diagnoses / Procedures Referred By Contac t Referred To Contact Radiology Diagnoses Intractable chronic migraine without aura and without status migrainosus Procedures MR brain w and wo contrast Megan Mason APRN - SMASHER [address] [place] [address] Referral ID Status Reason Start Date Expiration Date V isits Requested Visits Authorized [id number] Authorized 05/11/2023 05/10/2024 1 1 Specialty Diagnoses / Procedures Referred By Contac t Referred To Contact Megan Mason APRN - [facility] [address] [place] [address] Referral ID Status Reason Start Date Expiration Date V isits Requested Visits Authorized [id number] Pending Review 1 1 Chief Complaint and [...] ABDOMINAL PAIN November 26, 2024 2:37 pm Reason for Visit Admit Date Abdominal pain October 24, 2024 10:17 am Diarrhea October 24, 2024 10:17 am Abdominal pain December 16, 2024 5:29 am Diarrhea December 16, 2024 5:29 am IBS (irritable bowel syndrome) December 5:29am Chief Complaint Admit Date THROAT PAIN October 03, 2024 4:16pm female c/o October 23, 2024 12:55 pm Nausea October 24, 2024 10:17 am NEEDS ORDER October 24, 2024 11:36 am LUMBAR PAIN November 02, 2024 7:58a m DR QUIJANO ORDER ONLY November 08, 2024 11: 24am ABD PAIN November 15, 2024 9:36 am ABDOMINAL PAIN November 26, 2024 2:37 pm gastroparesis, diarrhea, abd pain January 15, 2025 11:05am Chief Complaint Admit Date THROAT PAIN October 03, 2024 4:16pm female c/o October 23, 2024 12:55 pm Nausea October 24, 2024 10:17 am NEEDS ORDER October 24, 2024 11:36 am LUMBAR PAIN November 02, 2024 7:58a m DR QUIJANO ORDER ONLY November 08, 2024 11: 24am ABD PAIN November 15, 2024 9:36 am ABDOMINAL PAIN November 26, 2024 2:37 pm gastroparesis, diarrhea, abd pain January 15, 2025 11:05am 3 M FU January 28, 2025 10 :54am Chief Complaint Admit Date female c/o October 23, 2024 12:55 pm Nausea October 24, 2024 10:17 am NEEDS ORDER October 24, 2024 11:36 am LUMBAR PAIN November 02, 2024 7:58a m DR QUIJANO ORDER ONLY November 08, 2024 11: 24am ABD PAIN November 15, 2024 9:36 am ABDOMINAL PAIN November 26, 2024 2:37 pm gastroparesis, diarrhea, abd pain January 15, 2025 11:05am 3 M FU January 28, 2025 10 :54am LUMBAR SPINE February 07, 2025 7:46am room 3 February 07, 2025 8:12am Reason for Visit Admit Date Abdominal pain October 24, 2024 10:17 am Diarrhea October 24, 2024 10:17 am Abdominal pain December 16, 2024 5:29 am Diarrhea December 16, 2024 5:29 am IBS (irritable bowel syndrome) December 5:29am Abdominal pain January 28, 2025 10 :54am Constipation January 28, 2025 10 :54am Diarrhea January 28, 2025 10 :54am Lumbar degenerative disc disease Septemb 2024 7:46am Obesity (BMI 30-39.9) February 07 7:46am Additional Source Comments INFORMATION SOURCE (unrecogn ized section and content) DATE CREATED AUTHOR 09/14/2018 [facility] DATE CREATED AUTHOR AUTHOR'S ORGANIZ ATION 01/14/2019 [facility] DATE CREATED AUTHOR AUTHOR'S ORGANIZ ATION 05/15/2020 [employer] DATE CREATED AUTHOR AUTHOR'S ORGANIZ ATION 12/23/2020 [facility] DATE CREATED AUTHOR AUTHOR'S ORGANIZ ATION 06/21/2021 [facility] DATE CREATED AUTHOR AUTHOR'S ORGANIZ ATION 10/14/2021 [facility] DATE CREATED AUTHOR AUTHOR'S ORGANIZ ATION 04/20/2023 [facility] ([place]) DATE CREATED AUTHOR AUTHOR'S ORGANIZ ATION 01/06/2025 [facility] DATE CREATED AUTHOR AUTHOR'S ORGANIZ ATION 01/09/2025 [facility] DATE CREATED AUTHOR AUTHOR'S ORGANIZ ATION 01/27/2025 [facility] DATE CREATED AUTHOR AUTHOR'S ORGANIZ ATION 04/03/2025 [facility] DATE CREATED AUTHOR AUTHOR'S ORGANIZ ATION 04/06/2025 [facility] Reason for Visit (unrecogniz ed section and content) Reason Comments Procedure Botulinum Toxin Injection Specialty Diagnoses / Procedures Referred By Contac t Referred To Contact Diagnoses Intractable chronic migraine without aura and without status migrainosus Megan Mason APRN - CNP [address] [facility] [address] [place] [address] Phone: tel: fax: Referral ID Status Reason Start Date Expiration Date Visits Re quested Visits Authorized [id number] Closed 05/23/2024 05/18/2025 1 1 Reason Comments Procedure Specialty Diagnoses / Procedures Referred By Contac t Referred To Contact Diagnoses Intractable chronic migraine without aura and without status migrainosus Megan Mason APRN - CNP [address] [facility] [address] [place] [address] Referral ID Status Reason Start Date Expiration Date V isits Requested Visits Authorized [id number] Pending Review 02/28/2024 02/22/2025 1 1 Reason Comments Facial Swelling Reason Onset Date Comments pt returning call. Office ca lled to change depo appt locatio 10/06/2022 pt returning call. Office ca lled to change depo appt location Reason Comments New Patient Headache Specialty Diagnoses / Procedures Referred By Contac t Referred To Contact Neurology Diagnoses Other migraine, not intractable, without status migrainosus Procedures [place] OFFICE/OUTPATIENT NEW MODERATE MDM 45-59 MINUTES [address] [place] [address] Perry Mckeon MD [address] [facility] [address] [place] [address] Referral ID Status Reason Start Date Expiration Date V isits Requested Visits Authorized [id number] Pending Review 08/25/2022 08/26/2023 1 1 Reason Onset Date Comments Advice Only 12/19/2022 Reason Comments Med Refill Reason Comments Follow-up Headache Specialty Diagnoses / Procedures Referred By Contdenny t Referred To Contact Radiology Diagnoses Intractable chronic migraine without aura and without status migrainosus Procedures MR brain w and wo contrast Megan Mason APRN - CNP [address] [facility] [address] [place] [address] Referral ID Status Reason Start Date Expiration Date Visits Re quested Visits Authorized [id number] Closed 05/11/2023 05/10/2024 1 1 Referral ID Status Reason Start Date Expiration Date V isits Requested Visits Authorized [id number] Pending Review 06/21/2023 06/15/2024 1 1 Reason [...] Expiration Date V isits Requested Visits Authorized [id number] Pending Review 10/31/2023 10/25/2024 1 1 Reason [...] Expiration Date Visits Re quested Visits Authorized [id number] Closed 08/15/2024 08/10/2025 1 1 Reason Onset [...] Date Comments Med Management 12/11/2024 Qulipta update Reason Comments Follow-up Reason Onset Date Comments Appointment 12/24/2024 Scheduled Active and Recently Administ ered Medications (unrecognized section and content) Medication Order 10/10/2021 10/11/2021 10/12/2021 acetaminophen (TYLENOL) tablet 1,000 mg (COMPLETED) 1,000 mg, Oral, ONCE, 1 dose, On Mon10/12/21 at 2057, Maximum dose of acetaminophen is 4000 mg from all sources in 24 hours. 210 (Given - Provid er: Yadira Linder RN) Care Teams (unrecognized sec tion and content) Journalism Professor Relationship Specialty Start Date End Date Son Delarosa MD PCP - General 09/22/18 Journalism Professor Relationship Specialty Start Date End Date Beba Humphreys DO [address] [place], [place] [id number] PCP - General 06/12/21 Journalism Professor Relationship Specialty Start Date End Date Beba Humphreys DO [address] [place] [address] PCP - General 06/12/21 Journalism Professor Relationship Specialty Start Date End Date [facility] [address] [place] [facility] [place] [address] PCP - General 11/11/22 Journalism Professor Relationship Specialty Start Date End Date [facility] [address] [place] [address] PCP - General 11/11/22 Team Status: Active Member Role Status Dates No Primary Care Physician Primary Care Provider Active Team Status: Inactive Member Role Status Dates Dr. Sid Villarreal MD Attending Provider, Referring Pr ovider Active No Primary Care Physician Primary Care Provider Active Journalism Professor Relationship Specialty Start Date End Date [facility] [address] [place] [facility] [place] [address] PCP - General 11/11/22 Journalism Professor Relationship Specialty Start Date End Date [facility] [address] [facility] [place] [address] PCP - General 11/11/22 Journalism Professor Relationship Specialty Start Date End Date [facility] [address] [facility] [place] [address] PCP - General 11/11/22 Journalism Professor Relationship Specialty Start Date End Date [facility] [address] [facility] [place] [address] PCP - General 11/11/22 Journalism Professor Relationship Specialty Start Date End Date [facility] [address] [facility] [place] [address] PCP - General 11/11/22 Journalism Professor Relationship Specialty Start Date End Date Beba Humphreys DO [address] [facility] [place] [address] PCP - General 06/12/21 11/10/22 [facility] [address] [place] [address] PCP - General 11/11/22 Journalism Professor Relationship Specialty Start Date End Date [facility] [address] [place] [address] PCP - General 11/11/22 Journalism Professor Relationship Specialty Start Date End [facility] [address] [facility] [place] [address] PCP - General 11/11/22 Team Status: Active Member Role Status Dates Naatliya Gomez MD Primary Care Provider Active Team Status: Inactive Member Role Status Dates Nataliya Gomez MD Primary Care Provide r, Attending Provider, Referring Provider Active Journalism Professor Relationship Specialty Start Date End Date [facility] [address] [place] [facility] [place] [place] [address] PCP - General 11/11/22 Journalism Professor Relationship Specialty Start Date End Date [facility] [address] [facility] [place] [address] PCP - General 11/11/22 Journalism Professor Relationship Specialty Start Date End Date Nataliya Gomez MD [address] [place] [address] [address] [place] [address] PCP - General Family Medicine 10/31/23 Journalism Professor Relationship Specialty Start Date End Date Nataliya Gomez MD [address] [place] [address] [address] [place] [address] PCP - General Family Medicine 10/31/23 Journalism Professor Relationship Specialty Start Date End Date Nataliya Gomez MD [address] [place] [address] [address] [place] [address] PCP - General Family Medicine 10/31/23 Journalism Professor Relationship Specialty Start Date End Date Nataliya Gomez MD [address] [place] [address] [address] [place] [address] PCP - General Family Medicine 10/31/23 Journalism Professor Relationship Specialty Start Date End Date Nataliya Gomez MD [address] [place] [address] [address] [place] [address] PCP - General Family Medicine 10/31/23 Journalism Professor Relationship Specialty Start Date End Date Nataliya Gomez MD [address] [place] [address] [address] [place], [place] [address] PCP - General Family Medicine 10/31/23 Journalism Professor Relationship Specialty Start Date End Date Nataliya Gomez MD [address] [place] [address] [address] [place], [place] [address] PCP - General Family Medicine 10/31/23 Team Status: Inactive Member Role Status Dates Nataliya Gmoez MD Primary Care Provider Active St art: August 19, 2024 End: August 19, 2024 Nataliya Gomez MD Attending Provider Active Start : August 19, 2024 End: August 19, 2024 Nataliya Gomez MD Referring Provider Active Start : August 19, 2024 End: August 19, 2024 Journalism Professor Relationship Specialty Start Date End Date Nataliya Gomez MD [address] [place] [address] [address] [place] [address] PCP - General Family Medicine 10/31/23 Journalism Professor Relationship Specialty Start Date End Date Nataliya Gomez MD [address] [place] [address] [address] [place], [place] [address] PCP - General Family Medicine 10/31/23 Journalism Professor Relationship Specialty Start Date End Date Nataliya Gomez MD [address] [place] [address] [address] [place], [place] [address] PCP - General Family Medicine 10/31/23 Journalism Professor Relationship Specialty Start Date End Date Nataliya Gomez MD [address] [place] [address] [address] [place], [place] [address] PCP - General Family Medicine 10/31/23 Journalism Professor Relationship Specialty Start Date End Date Nataliya Gomez MD [address] [facility] [address] [place] [address] PCP - General Family Medicine 10/31/23 Journalism Professor Relationship Specialty Start Date End Date Nataliya Gomez MD [address] [place] [address] [address] [place] [address] PCP - General Family Medicine 10/31/23 Journalism Professor Relationship Specialty Start Date End Date Nataliya Gomez MD [address] [facility] [address] [place], [place] [id number] PCP - General Family Medicine 10/31/23 Team Status: Inactive Member Role Status Dates Nataliya Gomez MD Primary Care Provider Active St art: October 03, 2024 End: October 03, 2024 Dr. Sid Villarreal MD Attending Provider Active Start: October 03, 2024 End: October 03, 2024 Dr. Sid Villarreal MD Referring Provider Active Start: October [...] October 24, 2024 End: October 24, 2024 Journalism Professor Relationship Specialty Start Date End Date Nataliya Gomez MD [address] [place] [address] [address] [place] [address] PCP - General Family Medicine 10/31/23 Team [...] November 08, 2024 End: November 08, 2024 Journalism Professor Relationship Specialty Start Date End Date Nataliya Gomez MD [address] [place] [address] [address] [place], [place] [address] PCP - General Family Medicine 11/01/24 Team [...] 03, 2024 End: October 03, 2024 Dr. Sid Villarreal MD Attending Provider Active Start: October 03, 2024 End: October 03, 2024 Dr. Sid Villarreal MD Referring Provider Active Start: October [...] November 26, 2024 End: November 26, 2024 Journalism Professor Relationship Specialty Start Date End Nataliya Gomez MD [address] [place] [address] [place] [address] PCP - General Family Medicine 10/31/23 Team Status: Inactive Member Role/Relationship Status Sandra Gomez MD Primary Care Provider Active St art: December 16, 2024 End: December 16, 2024 Nataliya Gomez MD Referring Provider Active Start : December 16, 2024 End: December 16, 2024 Dr. Moses Montalvo DO Attending Provider Active Start: December 16, 2024 End: December 16, 2024 Team Status: Active Member Role/Relationship Status Sandra Gomez MD Primary Care Provider Active St art: December 16, 2024 Nataliya Gomez MD Referring Provider Active Start : December 16, 2024 Dr. Moses Montalvo , Attending Provider Active Start: December 16, 2024 Dr. Moses Montalvo , DO Other Provider Active St art: December 16, 2024 Journalism Professor Relationship Specialty Start Date End Date Nataliya Gomez MD [address] [place] [address] [address] [place] [address] PCP - General Family Medicine 11/01/24 Journalism Professor Relationship Specialty Start Date End Date Nataliya Gomez MD [address] [facility] [address] [place], [place] [address] PCP - General Family Medicine 10/31/23 Journalism Professor Relationship Specialty Start Date End Date Nataliya Gomez MD [address] [place] [address] [address] [place] [address] PCP - General Family Medicine 10/31/23 Team Status: Inactive Member Role/Relationship Status Dates Nataliya Gomez MD Primary Care Provider Active St art: October 03, 2024 End: October 03, 2024 Dr. Sid Villarreal MD Attending Provider Active Start: October 03, 2024 End: October 03, 2024 Dr. Sid Villarreal MD Referring Provider Active Start: October [...] November 26, 2024 End: November 26, 2024 Team Status: Inactive Member Role/Relationship Status Sandra Gomez MD Primary Care Provider Active St art: December 16, 2024 End: December 16, 2024 Nataliya Gomez MD Referring Provider Active Start : December 16, 2024 End: December 16, 2024 Dr. Moses Montalvo DO Attending Provider Active Start: December 16, 2024 End: December 16, 2024 Team Status: Active Member Role/Relationship Status Sandra Gomez MD Primary Care Provider Active St art: December 16, 2024 Nataliya Gomez MD Referring Provider Active Start : December 16, 2024 Dr. Moses Montalvo DO Attending Provider Active Start: December 16, 2024 Dr. Moses Montalvo DO Other Provider Active St art: December 16, 2024 Team Status: Inactive Member Role/Relationship Status Sandra Gomez MD Primary Care Provider Active St art: January 15, 2025 End: January 15, 2025 Dr. Moses Montalvo DO Attending Provider Active Start: January 15, 2025 End: January 15, 2025 Dr. Moses Montalvo DO Referring Provider Active Start: January 15, 2025 End: January 15, 2025 Team Status: Inactive Member Role/Relationship Status Sandra Gomez MD Primary Care Provider Active St art: January 28, 2025 End: January 28, 2025 Nataliya Gomez MD Referring Provider Active Start : January 28, 2025 End: January 28, 2025 Dr. Moses Montalvo DO Attending Provider Active Start: January 28, 2025 End: January 28, 2025 Team Status: Inactive Member Role/Relationship Status Sandra [...] November 26, 2024 End: November 26, 2024 Team Status: Inactive Member Role/Relationship Status Sandra Gomez MD Primary Care Provider Active St art: December 16, 2024 End: December 16, 2024 Nataliya Gomez MD Referring Provider Active Start : December 16, 2024 End: December 16, 2024 Dr. Moses Montalvo DO Attending Provider Active Start: December 16, 2024 End: December 16, 2024 Team Status: Active Member Role/Relationship Status Sandra Gomez MD Primary Care Provider Active St art: December 16, 2024 Nataliya Gomez MD Referring Provider Active Start : December 16, 2024 Dr. Moses Montalvo DO Attending Provider Active Start: December 16, 2024 Dr. Moses Montalvo DO Other Provider Active St art: December 16, 2024 Team Status: Inactive Member Role/Relationship Status Sandra Gomez MD Primary Care Provider Active St art: January 15, 2025 End: January 15, 2025 Dr. Moses Montalvo DO Attending Provider Active Start: January 15, 2025 End: January 15, 2025 Dr. Moses Montalvo DO Referring Provider Active Start: January 15, 2025 End: January 15, 2025 Team Status: Inactive Member Role/Relationship Status Sandra Gomez MD Primary Care Provider Active St art: January 28, 2025 End: January 28, 2025 Nataliya Gomez MD Referring Provider Active Start : January 28, 2025 End: January 28, 2025 Dr. Moses Montalvo DO Attending Provider Active Start: January 28, 2025 End: January 28, 2025 Team Status: Active Member Role/Relationship Status Sandra Gomez MD Primary Care Provider Active St art: February 07, 2025 Nataliya Gomez MD Referring Provider Active Start : February 07, 2025 Dr. Shailesh Schneider MD Attending Provider Active Start: February 07, 2025 Team Status: Inactive Member Role/Relationship Status Sandra Gomez MD Primary Care Provider Active St art: February 07, 2025 End: February 07, 2025 Dr. Jj Fox MD Attending Provider Active S tart: February 07, 2025 End: February 07, 2025 Team Status: Inactive Member Role/Relationship Status Sandra Gomez MD Primary Care Provider Active St art: February 07, 2025 End: February 07, 2025 Nataliya Gomez MD Referring Provider Active Start : February 07, 2025 End: February 07, 2025 Dr. Shailesh Schneider MD Attending Provider Active Start: February 07, 2025 End: February 07, 2025 Care Team (unrecognized sect ion and content) Care Team Personnel Name: Susan Rodriguezreros Brooke PT Position: P3 Scheduling - Beef Lugger Advanced Member Role: Other Name: PHYSICIAN, NONE Position: Physician Member Role: Primary Care Physician Care Team Related Persons Name: YEIMI GANDARA Address: Home [address] [place], [place] [id number] [place] Name: SILVANA GIRON Address: [address] [facility], [place] [id number] [place] Address: Temporary [address] [place], [id number] Care Team Personnel Name: Susan Rodriguez PT Position: P3 Scheduling - Beef Lugger Advanced Member Role: Other Name: PHYSICIAN, NONE Position: Physician Member Role: Primary Care Physician Care Team Related Persons Name: YEIMI GANDARA Address: Home [address], [place] [id number] [place] Name: SILVANA GIRON Address: Home [address] [place] [id number] [place] Address: Temporary [address], [id number] Care Team Personnel Name: Susan Rodriguez PT Position: P3 Scheduling - Beef Lugger Advanced Member Role: Other Name: PHYSICIAN, NONE Position: Physician Member Role: Primary Care Physician Name: AUBREY CASTILLO DO Position: ED Physician Member Role: ED Physician Address: Address: [address] [place] [address] Name: MARIE Allen Position: AO RN Member Role: ED RN Care Team Related Persons Name: YEIMI GANDARA Address: Home [address] [place], [place] [id number] [place] Name: SILVANA GIRON Address: Home [address] [facility] [id number] [place] Address: Temporary [address], [id number] Goals (unrecognized section and content) Goals may [...] BE BASED ON THE PRIMARY CLINICAL RECORDS. [facility]. provides no warranty or guarantee of the accuracy or completeness of information in this document.
[2025-05-22] MEDS: 0.9% Normal Saline (1000mL) 1,000 ML 999 ML IV (03:11)
[2025-05-22] MEDS: DiphenhydrAMINE 50 MG, ChlorproMAZINE 50 MG in 0.9% Normal Saline (250mL Bag) 247 ML 250 MG IV (03:11)
[2025-05-22 03:14] LABS: Hematocrit 40.7 % (37-47); Hemoglobin 13.6 g/dL (12.0-15.0); Immature Granulocytes Count 0.050 X10^3/uL (0.0-0.0); Mean Corp Hgb Conc 33.4 g/dL (32-36); Mean Corpuscular Volume 97.1 fL (81-99); Mean Platelet Vol. 9.4 fl (6.2-12.0); NRBC Flagged by Analyzer 0 % (0-5); Platelet Count 235 K/mm3 (150-450); RBC Distribution Width CV 13.0 % (11.6-14.6); RBC Distribution Width SD 45.6 fl (35.1-43.9); Red Blood Count 4.19 M/mm3 (4.2-5.4); White Blood Count 11.4 K/mm3 (4.4-11.0)
[2025-05-22 03:48] LABS: Internal QC Validated? YES +Cl - CLEAR BKGD; Pregnancy, Serum, hCG Quali. NEGATIVE Negative
[2025-05-22 04:18] LABS: Lipase 24 U/L (13-75)
[2025-05-22 04:27] LABS: AST(SGOT) 18 U/L (<=31); Alanine Aminotransfer ALT/SGPT 18 U/L (<=34); Albumin, Serum 4.1 g/dL (3.5-5.0); Alkaline Phosphatase 46 U/L (35-104); Anion Gap 18 (5-15); BUN 14 mg/dL (4-19); BUN/Creat Ratio 18.2 RATIO (10-20); Bilirubin, Direct 0.20 mg/dL (0.00-0.30); Calcium,Total 9.5 mg/dL (7.6-11.0); Carbon Dioxide 17.2 mmol/L (21.0-32.0); Chloride 104 mmol/L (98-108); Estimated Creatinine Clearance 130.59 ml/min (50-250); Globulin 3.0 g/dL (2.2-4.2); Glucose 177 mg/dL (70-99); Potassium 3.6 mmol/L (3.3-5.1)
--- NOTE | 2025-05-22 04:30 | EX.ED.DYSGE1 ---
HPI History of Present Illness Chief Complaint: Nausea/Vomiting Informant: patient and EMS Narrative Narrative: Patient is a 34-year-old female with past medical history of anxiety and depression as well as bipolar disorder. She was recently seen by gastroenterology secondary to recurrent bouts of nausea and vomiting. Patient states she was at home this evening and began to have recurrent bouts of nausea and vomiting. She denies any known sick contact. She does state that she recently started metronidazole but denies drinking any alcohol with this that could have precipitated vomiting. 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 Geovani Hernandez, DO) Lumbar stenosis Lumbar disc herniation Leg length discrepancy Scoliosis Lumbar degenerative disc disease Obesity (BMI 30-39.9) ADHD Marijuana use Arthritis Fatty liver Easy bruising Leg cramps Migraine headache Gastric reflux Shortness of breath on exertion Smoker History of pain when walking History of echocardiogram IBS (irritable bowel syndrome) Bipolar disorder Low back pain Depression Anxiety Home Medications ?Medication ?Instructions ?Recorded ?Last Taken ?Type biotin 2,500 mcg chewable tablet 2,500 mcg PO DAILY 10/24/24 12/15/24 History dextroamphetamine-amphetamine 30 30 mg PO QDAY 10/24/24 12/15/24 History mg tablet (Adderall) gabapentin 600 mg tablet 800 mg PO TID 10/24/24 12/16/24 History lamotrigine 150 mg tablet 100 mg PO QHS 10/24/24 12/15/24 History promethazine 12.5 mg tablet 12.5 mg PO Q6H PRN nausea and 10/24/24 Unknown History vomiting zolpidem 10 mg tablet (Ambien) 10 mg PO QHS 10/24/24 12/15/24 History prochlorperazine 25 mg rectal 25 mg RI BID PRN nausea and 11/28/24 Unknown Rx suppository (Compazine) vomiting #12 ea albuterol sulfate 90 mcg/actuation 2 puff inhalation 4X/DAY PRN PRN 12/12/24 Unknown History aerosol inhaler shortness of breath or wheezing atogepant 60 mg tablet (Qulipta) 60 mg PO DAILY 12/12/24 12/16/24 History cholecalciferol (vitamin D3) 50 50 mcg PO DAILY 12/12/24 12/15/24 History mcg (2,000 unit) tablet (Vitamin D3) drospirenone 3 mg-ethinyl 1 tab PO DAILY 12/12/24 12/15/24 History estradiol 0.03 mg tablet (Zainab) oxybutynin chloride 10 mg 10 mg PO DAILY 12/12/24 12/16/24 History tablet,extended release 24 hr tizanidine 4 mg tablet 4 mg PO QHS 12/12/24 12/15/24 History dicyclomine 20 mg tablet 20 mg PO TID #90 TABLETS 03/12/25 Unknown Rx scopolamine base 1 mg over 3 days 1 patch transdermal Q3D PRN nausea 03/18/25 Unknown Rx transdermal patch and vomiting #10 ea omeprazole 20 mg capsule,delayed 20 mg PO BID 2 months #120 caps 04/11/25 Unknown Rx release lactulose 10 gram/15 mL oral 20 g (30 mL) PO BID #1,200 mL 05/19/25 Unknown Rx solution Allergy/AdvReac Type Severity Reaction Status Date / Time ibuprofen AdvReac Intermediate Hives Verified 05/22/25 02:25 codeine AdvReac Upset Verified 05/22/25 02:25 Stomach hydrocodone bitartrate (From AdvReac Upset Verified 05/22/25 02:25 Vicodin) Stomach Surgical History History of History of appendectomy Hx of knee surgery Social History housing: apartment current occupational status: disabled Smoking Status: Current every day smoker tobacco type: cigarettes alcohol intake: never substance use type: marijuana what type of physical activity do you participate in: walking ROS ROS ED Constitutional Constitutional ED: Denies chills or fever(s) Eyes Eyes: Denies change in vision ENT ENT ED: Denies sore throat Cardiovascular Cardiovascular: Denies chest pain Respiratory/Chest Respiratory/Chest: Denies cough or dyspnea Gastrointestinal Gastrointestinal: Reports abdominal pain, nausea and vomiting; Denies diarrhea Genitourinary Genitourinary ED: Denies dysuria Musculoskeletal Musculoskeletal: Denies myalgias Integumentary Denies rash Neurologic Neurologic: Denies headache(s) Psychiatric Psychiatric: Reports anxiety and depression Hematologic/Lymphatic Hematologic/Lymphatic: Denies easy bleeding or easy bruising EXAM Physical Exam Const Vital Signs: 05/22/25 02:19 05/22/25 05:05 Temperature 97.1 F L 97.9 F Temperature Source Temporal Pulse Rate 73 74 Respiratory Rate 20 H 18 Blood Pressure 149/93 H 132/68 H Blood Pressure Mean 111 89 Pulse Ox 100 99 Oxygen Delivery Method Room Air Positive well nourished and well developed General Appearance ED: well developed; Negative for pallor HEENT HEENT Narrative: Normocephalic atraumatic Eyes PERRL and EOMs intact bilaterally General Eye ED: Negative for scleral icterus Neck supple Resp normal respiratory effort and clear to auscultation bilaterally Cardio regular rate and regular rhythm Rate: other Other Details: Radial and carotid pulses are equal and symmetric GI non-tender, non-distended and no masses GI Narrative: Abdomen is soft nontender nondistended with hyperactive bowel sounds. No voluntary guarding or rigidity or pulsatile mass No peritoneal signs Auscultation: hyperactive bowel sounds Palpation: soft Extremity normal to inspection Neuro oriented x3, CN's II-XII intact bilaterally and no sensory deficits noted Sensorium / Orientation: alert Motor Exam: strength 5/5 throughout Psych Attitude: agitated Mood & Affect: anxious Skin no rashes or lesions noted and skin turgor normal General Skin Exam: Negative for jaundice or pallor MDM MDM MDM Narrative Medical decision making narrative: Patient arrived to the ER mildly hypertensive otherwise with stable vitals. She denied any known sick contacts and states that her nausea and vomiting occurred spontaneously. She does admit to potential adverse medication event with her now taking metronidazole. In order to assess for acute kidney injury biliary colic or pancreatitis or complication basic blood work was obtained. Labs revealed no clinically significant finding. I did discuss with patient that with her daily marijuana use this very well could be cannabis hyperemesis syndrome. She states that she has never experienced this after using marijuana but in the ER I did elect to give her Thorazine and Benadryl which ultimately resolved her nausea and vomit. She was then able to drink water without any further bouts of vomiting and reported complete resolution of symptoms. Therefore with overall negative workup and resolution of symptoms there is no need for further intervention and she is otherwise safe for discharge History & Record Review Discussion w/independent historian: Patient Lab Data Attestation: I reviewed the patient's lab results. Labs: Laboratory Results - last 24 hr 05/22/25 03:06 WBC 11.4 H RBC 4.19 L Hgb 13.6 Hct 40.7 MCV 97.1 MCH 32.5 H MCHC 33.4 RDW Std Deviation 45.6 H RDW Coeff of Emery 13.0 Plt Count 235 MPV 9.4 Immature Gran % (Auto) 0.400 Neut % (Auto) 88.3 H Lymph % (Auto) 8.5 L Harney % (Auto) 2.6 Eos % (Auto) 0.0 Baso % (Auto) 0.2 Absolute Neuts (auto) 10.1 H Absolute Lymphs (auto) 0.97 Nucleated RBC % 0 Sodium 139 Potassium 3.6 Chloride 104 Carbon Dioxide 17.2 L Anion Gap 18 H BUN 14 Creatinine 0.74 Estim Creat Clear Calc 130.59 Est GFR (MDRD) Non-Af 109 BUN/Creatinine Ratio 18.2 Glucose 177 H Calcium 9.5 Total Bilirubin 0.49 Direct Bilirubin 0.20 AST 18 ALT 18 Alkaline Phosphatase 46 Total Protein 7.1 Albumin 4.1 Globulin 3.0 Lipase 24 Serum , Qual NEGATIVE Discharge Plan Triage Chief Complaint: Nausea/Vomiting ED Provider: Geovani Hernandez Dx/Rx/DC Orders Clinical Impression: Nausea and vomiting, Anxiety and depression, Bipolar disorder, Marijuana use Instructions: ED Cyclic Vomiting Syndrome, ED Vomiting (Adult) Prescriptions: No Action dextroamphetamine-amphetamine [Adderall] 30 mg tablet 30 mg PO QDAY promethazine 12.5 mg tablet 12.5 mg PO Q6H PRN (Reason: nausea and vomiting) zolpidem [Ambien] 10 mg tablet 10 mg PO QHS biotin 2,500 mcg tablet,chewable 2,500 mcg PO DAILY lactulose 10 gram/15 mL solution 20 g PO BID Qty: 1200 2RF gabapentin 600 mg tablet 800 mg PO TID lamotrigine 150 mg tablet 100 mg PO QHS tizanidine 4 mg tablet 4 mg PO QHS cholecalciferol (vitamin D3) [Vitamin D3] 50 mcg (2,000 unit) tablet 50 mcg PO DAILY albuterol sulfate 90 mcg/actuation HFA aerosol inhaler 2 puff inhalation 4X/DAY PRN PRN (Reason: shortness of breath or wheezing) oxybutynin chloride 10 mg tablet extended release 24hr 10 mg PO DAILY drospirenone-ethinyl estradiol [Zainab] 3-0.03 mg tablet 1 tab PO DAILY Qulipta 60 mg tablet 60 mg PO DAILY prochlorperazine [Compazine] 25 mg suppository 25 mg RI BID PRN (Reason: nausea and vomiting) Qty: 12 2RF dicyclomine 20 mg tablet 20 mg PO TID Qty: 90 1RF scopolamine base 1 mg over 3 days patch 3 day 1 patch transdermal Q3D PRN (Reason: nausea and vomiting) Qty: 10 0RF omeprazole 20 mg capsule,delayed release(DR/EC) 20 mg PO BID 60 Days Qty: 120 0RF Primary Care Provider: Nataliya Oliveira Referrals: Nataliya Oliveira MD [Primary Care Provider, [facility]] Activity Restrictions/Additional Instructions: Please take the medications that were prescribed by your radio time sales supervisor to help control any further bouts of nausea or vomiting. Keep yourself well-hydrated. Follow-up with Dr. Montalvo/gastroenterology for repeat evaluation and discuss potential causes of your symptoms such as gastroparesis or cannabis hyperemesis syndrome or other issue leading to symptoms. Return to the ER should you have any further concerns Print Language: Iraqi Disposition Disposition: Home, Self Care Discharge Date/Time: 05/22/25 05:05
[2025-05-22 05:05] VITALS: BP 132/68; PULSE 74; RESP 18; TEMP 36.6; O2SAT 99
== END 2025-05-22 05:05 | disposition home or self-care (01) ==
PROVIDERS: Emergency Provider Emergency Medicine; PCP Family Medicine; Visit Provider Emergency Medicine
DX: R11.2 Nausea with vomiting, unspecified (principal); F31.9 Bipolar disorder, unspecified; F41.9 Anxiety disorder, unspecified; F12.90 Cannabis use, unspecified, uncomplicated; F17.210 Nicotine dependence, cigarettes, uncomplicated; Z79.899 Other long term (current) drug therapy
CPT/HCPCS: 80048; 80076; 83690; 84703; 85025; 96361; 96365; 99284; A4216